=== PATIENT | male | born 1975 | race Hispanic/Latino ===

== ENCOUNTER 2023-02-08 15:42 | Emergency (ER) | payer OTHER, SELFPAY ==
[2023-02-08 15:45] VITALS: BP 139/96; PULSE 77; RESP 18; TEMP 35.8; O2SAT 99; BMI 31.7
[2023-02-08 16:17] VITALS: BMI 31.7
--- NOTE | 2023-02-08 16:37 | EX.ED.DYSGE1 ---
HPI History of Present Illness Chief Complaint: Neuro S/Sx Detail of Chief Complaint: Multiple symptoms over the past several days to week Onset/Context/Timing Onset: Weeks Context: Sudden Onset Timing: Intermittent Quality: Detailed in the HPI narrative Location: Detailed in the HPI narrative Current Severity: Mild Maximum Severity: Moderate Worsened by: Nothing specific Relieved by: Nothing Associated Symptoms Associated Symptoms: 5 pound weight gain over the past month Narrative Narrative: Patient is a 47-year-old male with history of anxiety and depression who is on spironolactone and estrogen therapy who presents because he had 3 episodes of total body movement that lasted seconds last evening. There was no incontinence of urine or stool. There was no loss of consciousness. This occurred when he was lying in bed to go to sleep. He also reports 3 episodes of his knee buckling when he was using the restroom several days ago. He denies buckling of his knees going up or down steps. He denies symptoms of claudication. He denies fever, chills night sweats. He denies headache. He denies visual, ocular auditory symptoms. He denies trouble with balance or coordination. He states last evening he was coughing but he was exposed to chemical/fumes while at work. 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 His medications have not changed. One of his medicines dose was increased 2 to 3 weeks ago. There is no family history of seizures and he has no history of febrile seizures. Prior similar symptoms: No Recent Illness/Hospitalization: No PFSH PFSH Allergy/AdvReac Type Severity Reaction Status Date / Time latex Allergy Rash Verified 02/08/23 15:44 levofloxacin [From Levaquin] Allergy Shortness Verified 02/08/23 15:44 of breath Social History (Updated 02/08/23 @ 16:[address] Nash Geller MD) household members: none Smoking Status: Never smoker alcohol intake: never substance use type: does not use ROS ROS ED Constitutional Constitutional ED: Denies chills, fever(s), subjective, sweats or weight loss Eyes Eyes: Denies blurry vision, change in vision or diplopia ENT ENT ED: Denies ear pain, rhinorrhea or sore throat Cardiovascular Cardiovascular: Denies chest pain, orthopnea, palpitations, paroxysmal nocturnal dyspnea or racing heartbeat Respiratory/Chest Respiratory/Chest: Denies cough, dyspnea, dyspnea on exertion, orthopnea or paroxysmal nocturnal dyspnea Gastrointestinal Gastrointestinal: Denies abdominal pain, nausea or vomiting Genitourinary Genitourinary ED: Denies dysuria, hematuria or urinary frequency Musculoskeletal Musculoskeletal: Denies arthralgias, back pain, myalgias or neck pain Integumentary Denies rash Neurologic Neurologic: Denies headache(s) or paresthesias Psychiatric Psychiatric: Reports anxiety and depression Endocrine Endocrinology: Denies cold intolerance or heat intolerance Hematologic/Lymphatic Hematologic/Lymphatic: Reports systems reviewed and no addt'l complaints, except as documented EXAM Physical Exam Const Vital Signs: 02/08/23 15:45 Temperature 96.5 F L Temperature Source Temporal Pulse Rate 77 Respiratory Rate 18 Blood Pressure 139/96 H Blood Pressure Mean 110 Pulse Ox 99 Oxygen Delivery Method Room Air Positive well nourished, well developed and obese Constitutional Narrative: Patient appears pale. He has been told by others that he appears pale. General Appearance ED: well developed, NAD and pallor; Negative for cyanotic or diaphoretic Nutritional Appearance: obese HEENT Reports moist mucous membranes HEENT Narrative: Head is normocephalic and atraumatic. Ears are normal. TMs are normal. Nares patent with no discharge. Uvula is midline. There is no deviation tongue with protrusion. Posterior pharynx is normal. Eyes PERRL and EOMs intact bilaterally Eyes Narrative: There is no nystagmus. Conjunctive is. General Eye ED: Negative for pale conjunctiva or scleral icterus Chest Wall inspection of chest normal and palpation of chest normal Resp normal respiratory effort and clear to auscultation bilaterally Cardio regular rate, regular rhythm, S1 normal heart sound and S2 normal heart sound GI normal to inspection, nondistended, normoactive bowel sounds, non-tender, non-distended and no masses; Negative for hepatosplenomegaly Back/Spine no CVA tenderness Extremity normal to inspection General Extremety ED: Negative for edema or tenderness General Extremity: Negative for edema Neuro oriented x3, CN's II-XII intact bilaterally and no sensory deficits noted Neuro Narrative: There is no dysmetria. DTRs are 2+ at the bicep, brachialis, triceps, patella and ankle. There is no clear or Babinski sign noted. Sensorium / Orientation: alert Motor Exam: strength 5/5 throughout Psych Psych Narrative: Mood is flat. Mood & Affect: depressed Skin no rashes or lesions noted, no wounds and skin turgor normal General Skin Exam: pallor; Negative for jaundice MDM MDM MDM Narrative Medical decision making narrative: His movement may be myoclonic jerks motion due to near sleep. This also could represent a atypical neurologic event. This could represent adverse reaction to his medication. Patient's physician affiliated with [facility]. There are no records at [facility] or laboratory results performed prior to this visit at [facility]. Lab Data Attestation: I reviewed the patient's lab results. Lab results narrative: Laboratory work-up is unremarkable. Patient was informed that his blood tests are unremarkable. He was discharged home with appropriate home-going instructions Labs: Laboratory Results - last 24 hr 02/08/23 02/08/23 16:20 17:18 WBC 8.0 RBC 4.55 L Hgb 14.0 Hct 41.9 MCV 92.1 MCH 30.8 MCHC 33.4 RDW Std Deviation 46.0 H RDW Coeff of Alcides 13.4 Plt Count 311 MPV 9.0 Immature Gran % (Auto) 0.500 Neut % (Auto) 55.7 Lymph % (Auto) 29.1 [place] % (Auto) 9.2 Eos % (Auto) 4.0 Baso % (Auto) 1.5 H Absolute Neuts (auto) 4.5 Absolute Lymphs (auto) 2.33 Nucleated RBC % 0 Sodium 135 L Potassium 3.7 Chloride 107 Carbon Dioxide 23.0 Anion Gap 5 BUN 18 Creatinine 1.06 Estim Creat Clear Calc 78.81 Est GFR (MDRD) Af Amer 95 Est GFR (MDRD) Non-Af 79 BUN/Creatinine Ratio 17.0 Glucose 105 Calcium 8.9 Total Bilirubin 0.20 AST 14 L ALT 34 Alkaline Phosphatase 97 Total Protein 7.2 Albumin 3.7 Globulin 3.5 Albumin/Globulin Ratio 1.1 POC Glucose 118 H Discharge Plan Triage Chief Complaint: Neuro S/Sx ED Provider: Nash Geller Dx/Rx/DC Orders Clinical Impression: Abnormal involuntary movements Primary Care Provider: CLEOPATRA CROCKER Referrals: CLEOPATRA CROCKER [Other] - As Needed Disposition Disposition: Home, Self Care
[2023-02-08 16:38] LABS: Bedside Glucose 118 mg/dL (74-106)
[2023-02-08 17:26] LABS: Absolute Lymphocyte Count 2.33 X10^3/uL (0.83-4.51); Absolute Neutrophil Count 4.5 X10^3/uL (2.0-7.7); Basophil# 0.12 X10^3/uL; Basophil% 1.5 % (0-1); Eosinophil# 0.32 X10^3/uL; Hematocrit 41.9 % (40-54); Lymphocyte # 2.33 X10^3/ul (0.83-4.51); Lymphocyte % 29.1 % (19-41); Mean Corp Hgb Conc 33.4 g/dL (32-36); Mean Corpuscular Hgb 30.8 pg (27.0-32.0); Mean Corpuscular Volume 92.1 fL (80-94); Monocyte# 0.74 X10^3/uL; Monocyte% 9.2 % (0-10); NRBC Flagged by Analyzer 0 % (0-5); Neutrophil # 4.47 X10^3/uL (2.7-7.7); Neutrophil % 55.7 % (47-70); Platelet Count 311 K/mm3 (150-450); RBC Distribution Width CV 13.4 % (11.6-14.6); Red Blood Count 4.55 M/mm3 (4.6-6.2)
[2023-02-08 17:45] LABS: ALB/GLOB Ratio 1.1 RATIO (0.9-2.4); AST(SGOT) 14 U/L (15-37); Alanine Aminotransfer ALT/SGPT 34 U/L (16-61); Albumin, Serum 3.7 g/dL (3.2-5.0); Alkaline Phosphatase 97 U/L (45-117); Anion Gap 5 (5-15); BUN 18 mg/dL (7-18); Calcium,Total 8.9 mg/dL (8.5-10.1); Chloride 107 mmol/L (98-107); Creatinine, Serum 1.06 mg/dL (0.70-1.30); EST Glomerular Filtration Rate 79 mL/min (>60); Est Glom Filt Rate - Afr Amer 95 mL/min (>60); Estimated Creatinine Clearance 78.81 ml/min; Globulin 3.5 g/dL (2.2-4.2); Glucose 105 mg/dL (74-106); Potassium 3.7 mmol/L (3.5-5.1); Protein, Total 7.2 g/dL (6.4-8.2); Sodium Level 135 mmol/L (136-145)
== END 2023-02-08 18:15 | disposition home or self-care (01) ==
PROVIDERS: Emergency Provider Emergency Medicine; Visit Provider Emergency Medicine
DX: R25.9 Unspecified abnormal involuntary movements (principal); E66.9 Obesity, unspecified
CPT/HCPCS: 80053; 82962; 85025; 99282

== ENCOUNTER 2024-07-05 10:19 | Emergency (ER) | payer OTHER, SELFPAY ==
[2024-07-05 10:21] VITALS: BP 135/82; PULSE 87; RESP 18; TEMP 37.2; O2SAT 99; BMI 34.2
[2024-07-05 10:23] VITALS: BP 135/82; PULSE 87; RESP 18; TEMP 37.2; O2SAT 99
--- NOTE | 2024-07-05 11:42 | EX.ED.DYSGE1 ---
HPI History of Present Illness Chief Complaint: Syncope Detail of Chief Complaint: Patient presents with syncope after coughing episode. Informant: patient Onset/Context/Timing Onset: Today and Hours Context: Sudden Onset Timing: Intermittent Quality: Patient had a hard coughing spell resulting in syncope and collapse Location: Patient states he was sitting and stood up Current Severity: Gone Maximum Severity: Moderate Worsened by: Coughing Relieved by: Not applicable Associated Symptoms Associated Symptoms: Patient has no recall Narrative Narrative: Patient is a 49-year-old male. He is transition from male to female. He had a single episode in the past. He denies headache, visual, ocular auditory symptoms. No trouble speech or swallowing. Denies paresthesia, anesthesia Medicus. He denies hematuria. He denies black or maroon-colored stool. He has been ill. He has viral-like symptoms that started several days ago. He did have diarrhea a couple of days ago. He did not notice any blood or mucus in the diarrhea. He has had no documented fever. He denies myalgias arthralgias. He does endorse mild headache. [place] photophobia, neck pain or neck stiffness. He does have a nonproductive cough. Prior similar symptoms: Yes Recent Illness/Hospitalization: No PFSH PFSH Allergy/AdvReac Type Severity Reaction Status Date / Time levofloxacin (From Levaquin) Allergy NEEDS Verified 07/05/24 10:20 FOLLOW-UP Social History (Updated 07/05/24 @ 12:[address] Nash Geller MD) Smoking Status: Never smoker substance use type: does not use ROS ROS ED Constitutional Constitutional ED: Denies chills, fever(s) or subjective Eyes Eyes: Denies blurry vision, change in vision or diplopia ENT ENT ED: Reports rhinorrhea and sore throat; Denies ear pain Cardiovascular Cardiovascular: Denies chest pain, orthopnea, palpitations or paroxysmal nocturnal dyspnea Respiratory/Chest Respiratory/Chest: Reports cough; Denies dyspnea, dyspnea on exertion, orthopnea, paroxysmal nocturnal dyspnea or sputum Gastrointestinal Gastrointestinal: Reports diarrhea; Denies abdominal pain or vomiting Genitourinary Genitourinary ED: Denies dysuria, hematuria or urinary frequency Musculoskeletal Musculoskeletal: Denies arthralgias or myalgias Integumentary Denies rash Neurologic Neurologic: Denies headache(s) Hematologic/Lymphatic Hematologic/Lymphatic: Reports systems reviewed and no addt'l complaints, except as documented EXAM Physical Exam Const Vital Signs: 07/05/24 10:21 07/05/24 10:23 07/05/24 11:58 Temperature 98.9 F 98.9 F Temperature Source Oral Oral Pulse Rate 87 87 Pulse Rate [Lying] 69 Pulse Rate [Sitting (for 1 minute prior to obtaining)] 65 Pulse Rate [Standing (for 1 minute prior to obtaining)] 75 Respiratory Rate 18 18 Blood Pressure 135/82 H 135/82 H Blood Pressure [Lying] 138/86 H Blood Pressure [Sitting (for 1 minute prior to obtaining)] 137/90 H Blood Pressure [Standing (for 1 minute prior to obtaining)] 122/92 H Blood Pressure Mean 99 99 Blood Pressure Mean [Lying] 103 Blood Pressure Mean [Sitting (for 1 minute prior to obtaining)] 105 Blood Pressure Mean [Standing (for 1 minute prior to obtaining)] 102 Pulse Ox 99 99 Oxygen Delivery Method Room Air Room Air Positive well nourished and well developed Constitutional Narrative: BMI is 34.3. General Appearance ED: well developed and NAD; Negative for pallor HEENT Reports moist mucous membranes HEENT Narrative: Head is atraumatic normocephalic. Ears normal. Nares patent. Eyes PERRL and EOMs intact bilaterally General Eye ED: Negative for pale conjunctiva or scleral icterus Neck no lymphadenopathy, supple and no JVD Neck Narrative: Trachea is midline. Resp normal respiratory effort and clear to auscultation bilaterally Cardio regular rate, regular rhythm, S1 normal heart sound, S2 normal heart sound and no murmurs GI normal to inspection, nondistended, normoactive bowel sounds, non-tender, non-distended and no masses; Negative for hepatosplenomegaly Extremity normal to inspection Neuro oriented x3 and CN's II-XII intact bilaterally Sensorium / Orientation: alert Psych mental status grossly normal Skin no rashes or lesions noted, No no wounds and skin turgor normal Skin Narrative: Abrasion right side of the forehead from rubbing his head on the floor. General Skin Exam: Negative for jaundice or pallor MDM MDM MDM Narrative Medical decision making narrative: EKG was obtained per nurse protocol. Patient's history is consistent with vasovagal syncopal sewed/posttussive syncope. If orthostatics are positive with his recent viral infection will order 1 L of normal saline. If there is any ischemic changes on EKG will obtain blood work to evaluate for cardiac event. Orthostatic vital signs are negative. EKG Initial EKG: Attestation: I personally reviewed and interpreted this EKG as follows: Interpretation: Sinus Rhythm (Rate is 92. Patient has incomplete right bundle branch block with an RR prime in V1 and V2. HI interval is under 58 ms. QS duration 96 ms. QT duration 284 ms. [place] is normal.) Treatment and Re-Evaluation :: Patient was informed he has a vasovagal episode due to coughing. Discharge Plan Triage Chief Complaint: Syncope ED Provider: Nash Geller Dx/Rx/DC Orders Clinical Impression: Post-tussive syncope, Viral illness Instructions: ED Fainting, Vagal Reaction Primary Care Provider: CLEOPATRA CROCKER Referrals: CLEOPATRA CROCKER [Other] - As Needed Print Language: Sami Disposition Disposition: Home, Self Care
[2024-07-05 11:58] VITALS: BP 122/92; BP 137/90; BP 138/86; PULSE 65; PULSE 69; PULSE 75
[2024-07-05 12:48] VITALS: BP 127/64; PULSE 73; RESP 15; TEMP 36.7; O2SAT 97
== END 2024-07-05 12:49 | disposition home or self-care (01) ==
PROVIDERS: Emergency Provider Emergency Medicine; Visit Provider Emergency Medicine
DX: R55 Syncope and collapse (principal); R05.4 Cough syncope; B34.9 Viral infection, unspecified
CPT/HCPCS: 93005; 99283; A4216

== ENCOUNTER → 2024-10-30 | Outpatient (CLI) | payer OTHER, SELFPAY ==
[2024-10-30 12:42] LABS: Absolute Lymphocyte Count 2.01 X10^3/uL (0.83-4.51); Basophil# 0.08 X10^3/uL; Basophil% 1.6 % (0-1); Eosinophil# 0.29 X10^3/uL; Hematocrit 41.6 % (40-54); Hemoglobin 14.1 g/dL (13.0-16.5); Lymphocyte # 2.01 X10^3/ul (0.83-4.51); Lymphocyte % 41.4 % (19-41); Mean Corp Hgb Conc 33.9 g/dL (32-36); Mean Corpuscular Hgb 30.1 pg (27.0-32.0); Mean Corpuscular Volume 88.7 fL (80-94); Mean Platelet Vol. 9.5 fl (6.2-12.0); Monocyte# 0.47 X10^3/uL; Monocyte% 9.7 % (0-10); NRBC Flagged by Analyzer 0 % (0-5); Neutrophil # 1.99 X10^3/uL (2.7-7.7); Neutrophil % 41.1 % (47-70); Platelet Count 282 K/mm3 (150-450); RBC Distribution Width CV 13.6 % (11.6-14.6); RBC Distribution Width SD 44.3 fl (35.1-43.9); Red Blood Count 4.69 M/mm3 (4.6-6.2); White Blood Count 4.9 K/mm3 (4.4-11.0)
[2024-10-30 14:12] LABS: Cholesterol 165 mg/dL (<=200); High Density Lipoprotein 49 mg/dL; Low Density Lipoprotein Calc. 82 mg/dL; PSA,Total - Annual Screen 0.12 ng/mL (0.02-4.00); Triglycerides 168 mg/dL; Very Low Density Lipoprotein 34 mg/dL (5-40); cholesterol:hdl ratio screen 3.35
[2024-10-30 14:32] LABS: ALB/GLOB Ratio 1.5 RATIO (0.9-2.4); AST(SGOT) 25 U/L (<=37); Alanine Aminotransfer ALT/SGPT 32 U/L (<=46); Albumin, Serum 4.2 g/dL (3.5-5.0); Alkaline Phosphatase 85 U/L (40-129); Anion Gap 11 (5-15); BUN 14 mg/dL (4-19); BUN/Creat Ratio 12.4 RATIO (10-20); Calcium,Total 9.1 mg/dL (7.6-11.0); Carbon Dioxide 20.8 mmol/L (21.0-32.0); Chloride 103 mmol/L (98-108); Creatinine, Serum 1.13 mg/dL (0.70-1.20); EST Glomerular Filtration Rate 79 (>60); Globulin 2.7 g/dL (2.2-4.2); Glucose 132 mg/dL (70-99); Potassium 3.9 mmol/L (3.3-5.1); Protein, Total 6.9 g/dL (5.9-8.4); Sodium Level 135 mmol/L (133-145); Total Bilirubin 0.43 mg/dL (0.00-1.30)
[2024-10-30 16:45] LABS: Hemoglobin A1c 6.1 % (<=5.6)
== END | disposition home or self-care (01) ==
LOC: BIMLAB 09:52
PROVIDERS: PCP Internal Medicine; Referring Provider Internal Medicine; Visit Provider Internal Medicine
DX: Z00.00 Encounter for general adult medical examination without abnormal findings (principal); R73.9 Hyperglycemia, unspecified
CPT/HCPCS: 36415; 80053; 80061; 83036; 84153; 85025; G0103

== ENCOUNTER 2024-11-06 17:31 | Emergency (ER) | payer OTHER, SELFPAY ==
[2024-11-06 17:31] VITALS: BP 162/103; PULSE 86; RESP 14; TEMP 35.6; O2SAT 99; BMI 34.5
--- NOTE | 2024-11-06 18:17 | EKG12_ITS ---
Test Reason : cp Blood Pressure : */* mmHG Vent. Rate : 86 BPM Atrial Rate : 86 BPM P-R Int : 168 ms QRS Dur : 104 ms QT Int : 412 ms P-R-T Axes : 49 -4 33 degrees QTcB Int : 493 ms Normal sinus rhythm Incomplete right bundle branch block Nonspecific T wave abnormality QTcB >= 480 msec Abnormal ECG Confirmed by Vahid Keller ([id number]), associate editor ERIS STARKEY ([id number]) on 11/10/2024 11:43:28 AM Referred By: Confirmed By: Vahid Keller
--- NOTE | 2024-11-06 18:27 | ED.VIS.CHEST ---
HPI <CARMENZA Harman - Last Filed: 11/06/24 21:11> History of Present Illness Chief Complaint: Chest Pain Narrative Narrative: 49-year-old male with PMH of GERD, anxiety and depression presents with 3 days of chest pain. He gets episodes of midsternal pain described as stinging or muscle soreness. It usually last a few seconds to 40 minutes. It occurred at rest and when he was walking around. It's occurred more frequently about 4 times today. He states he ate a chicken sandwich at [employer] and had a few seconds of the pain afterward. He has no shortness of breath, nausea or vomiting, or abdominal or back pain. He has normal bladder and bowel movements. He denies fever chills or upper respiratory symptoms. He is on esomeprazole and famotidine for GERD. PFSH <CARMENZA Harman - Last Filed: 11/06/24 21:11> PENDING SALE TO [facility] Medical History (Updated 11/06/24 @ 21:05 by CARMENZA Harman) Blood glucose elevated Encounter to establish care Preventative health care Fibromyalgia Gender dysphoria Vision problems GERD (gastroesophageal reflux disease) High cholesterol Hypertension Generalized headaches Emotional problems Asthma Home Medications ?Medication ?Instructions ?Recorded ?Last Taken ?Type esomeprazole magnesium 40 mg 40 mg PO QAM 11/19/23 Unknown History capsule,delayed release famotidine 20 mg tablet 20 mg PO DAILY 11/19/23 Unknown History spironolactone 50 mg tablet 50 mg PO QDAY 11/19/23 Unknown History finasteride 5 mg tablet 5 mg PO QDAY 06/04/24 Unknown History estradiol 2 mg tablet 6 mg PO QDAY 10/30/24 Unknown History buspirone 15 mg tablet 15 mg PO BID #180 tabs 11/04/24 Unknown Rx clonazepam 0.5 mg tablet 0.5 mg PO QHS PRN anxiety #30 tabs 11/04/24 Unknown Rx fluoxetine 40 mg capsule 80 mg (2 x 40 mg) PO QDAY #180 caps 11/04/24 Unknown Rx hydroxyzine HCl 25 mg tablet 25 mg PO QDAY #90 tabs 11/04/24 Unknown Rx mirabegron 25 mg tablet,extended 50 mg PO QDAY 11/04/24 Unknown History release 24 hr (Myrbetriq) prazosin 2 mg capsule 2 mg PO QHS #90 caps 11/04/24 Unknown Rx Allergy/AdvReac Type Severity Reaction Status Date / Time latex Allergy Rash Verified 11/06/24 17:32 levofloxacin (From Levaquin) Allergy Shortness Verified 11/06/24 17:32 of breath Family History Other Alcoholism Anxiety Arthritis Breast cancer Colon cancer Depression Diabetes Hypertension Mental disorder Psychiatric care Suicide attempt Surgical History H/O endoscopy History of liver biopsy History of cystoscopy History of colonoscopy Social History household members: none Smoking Status: Never smoker alcohol intake: never substance use type: does not use ROS <CARMENZA Harman - Last Filed: 11/06/24 21:11> ROS ED ROS Narrative Constitutional: Negative for fever, chills, malaise. CVS: Positive for chest pain. No palpitations or syncope. Respiratory: Negative for shortness of breath, cough. GI: Negative for abdominal pain, nausea, vomiting, diarrhea. EXAM <CARMENZA Harman - Last Filed: 11/06/24 21:11> Physical Exam Narrative Exam Narrative: CONST: Patient sitting in no acute distress. EYES: Normal inspection. NECK: Normal inspection. RESP: No respiratory distress, CTAB. CVS: Regular rate and rhythm, no murmur, no gallop. ABD: Soft and nontender, no guarding or rebound, nondistended. SKIN: Color normal, no rash, warm, dry, intact. EXTREMITIES: Normal appearance, no pedal edema. NEURO: Alert and answering questions appropriately. PSYCH: Normal affect. Const Vital Signs: 11/06/24 17:31 11/06/24 18:33 11/06/24 19:31 Temperature 96.1 F L Temperature Source Temporal Pulse Rate 86 74 Respiratory Rate 14 16 Blood Pressure 162/103 H 150/96 H Blood Pressure Mean 122 114 Pulse Ox 99 98 Oxygen Delivery Method Room Air Room Air Room Air 11/06/24 21:00 11/06/24 21:07 Temperature 98.1 F Temperature Source Pulse Rate 68 72 Respiratory Rate 20 H 20 H Blood Pressure 132/93 H 132/93 H Blood Pressure Mean 106 106 Pulse Ox 100 100 Oxygen Delivery Method Room Air <Dr. Rakesh Broderick DO - Last Filed: 11/06/24 21:26> Physical Exam Const Vital Signs: 11/06/24 17:31 11/06/24 18:33 11/06/24 19:31 Temperature 96.1 F L Temperature Source Temporal Pulse Rate 86 74 Respiratory Rate 14 16 Blood Pressure 162/103 H 150/96 H Blood Pressure Mean 122 114 Pulse Ox 99 98 Oxygen Delivery Method Room Air Room Air Room Air 11/06/24 21:00 11/06/24 21:07 Temperature 98.1 F Temperature Source Pulse Rate 68 72 Respiratory Rate 20 H 20 H Blood Pressure 132/93 H 132/93 H Blood Pressure Mean 106 106 Pulse Ox 100 100 Oxygen Delivery Method Room Air <CARMENZA Harman - Last Filed: 11/06/24 21:11> Heart Score History: Slightly/Non-Suspicious ECG: Normal Age: >45 - <65 years Risk Factors: No Risk Factors Troponin: </= Normal Limit Score: 1 <Dr. Rakesh Broderick DO - Last Filed: 11/06/24 21:26> Heart Score Score: 1 MDM <CARMENZA Harman - Last Filed: 11/06/24 21:11> MDM MDM Narrative Medical decision making narrative: 49-year-old male has had 3 days of intermittent chest pain lasting seconds to minutes. It is not exertional or pleuritic. It has occurred after eating food at times. He appears slightly anxious but nontoxic. Vital signs notable for hypertension otherwise normal. His exam is benign. EKG is nonischemic and troponin x 2 is normal. CXR shows no acute process. I do not suspect a PE as he has atypical pain that last seconds to minutes and he has no shortness of breath. He states he has significant GERD and an abnormality seen on EGD but does not know the details. He is on a PPI and famotidine. I recommended he continue these and continue a good diet. He was instructed to follow-up with his primary care doctor return if symptoms worsen. He was discharged in stable condition. Lab Data Attestation: I reviewed the patient's lab results. Labs: Laboratory Results - last 24 hr 11/06/24 11/06/24 18:28 20:32 WBC 7.4 RBC 4.83 Hgb 14.5 Hct 41.3 MCV 85.5 MCH 30.0 MCHC 35.1 RDW Std Deviation 41.0 RDW Coeff of Alcides 13.2 Plt Count 295 MPV 9.1 Immature Gran % (Auto) 0.300 Neut % (Auto) 54.7 Lymph % (Auto) 32.0 [place] % (Auto) 8.3 Eos % (Auto) 3.5 Baso % (Auto) 1.2 H Absolute Neuts (auto) 4.1 Absolute Lymphs (auto) 2.38 Nucleated RBC % 0 Sodium 136 Potassium 3.6 Chloride 103 Carbon Dioxide 16.3 L Anion Gap 17 H BUN 16 Creatinine 1.20 Estim Creat Clear Calc 79.44 Est GFR (MDRD) Non-Af 73 BUN/Creatinine Ratio 13.3 Glucose 128 H Calcium 9.0 Troponin T High Sens 9 Troponin T Hi Sens 2 Hr 9 Radiography Diagnostic Testing: Clinical Impression(s) from Imaging Studies Chest X-Ray 11/06/24 18:35 IMPRESSION: No acute cardiopulmonary process. Reading Location: [facility] ED attending interpretation of 2 view chest x-ray shows normal heart size, no acute infiltrate. EKG Initial EKG: Attestation: I personally reviewed and interpreted this EKG as follows: Interpretation: Sinus Rhythm and No Acute Injury Pattern Comments: Normal sinus rhythm 86 bpm Incomplete RBBB Nonspecific T wave changes <Dr. Rakesh Broderick, DO - Last Filed: 11/06/24 21:26> [facility] MDM Narrative Medical decision making narrative: 49-year-old male has had 3 days of intermittent chest pain lasting seconds to minutes. It is not exertional or pleuritic. It has occurred after eating food at times. He appears slightly anxious but nontoxic. Vital signs notable for hypertension otherwise normal. His exam is benign. EKG is nonischemic and troponin x 2 is normal. CXR shows no acute process. I do not suspect a PE as he has atypical pain that last seconds to minutes and he has no shortness of breath. He states he has significant GERD and an abnormality seen on EGD but does not know the details. He is on a PPI and famotidine. I recommended he continue these and continue a good diet. He was instructed to follow-up with his primary care doctor return if symptoms worsen. He was discharged in stable condition. I have personally performed a face to face assessment of the patient and have reviewed the FELIZ Note. I performed a substantive portion of the visit including all aspects of the following. My infante findings include: History is 49-year-old patient presenting for the evaluation of a midsternal intermittent pain in their chest. Sometimes lasting minutes sometimes seconds. More of an achy sensation. States that they had an EGD in the past and is on both Nexium and Pepcid. Patient concerned so came to emergency. Exam is afebrile pulse is stable upper abdomen is nontender heart regular without murmur lung sounds clear and equal chest nontender no leg swelling no rashes/petechiae Medical Decison Making EKG is nonischemic and sinus. 2 sets of cardiac enzymes are normal. The abdomen is benign. My independent interpretation of the chest x-ray is no acute process. I believe the patient can be discharged home following up with primary care return if worsening symptomology or concerns History & Record Review Discussion w/independent historian: Patient Lab Data Labs: Laboratory Results - last 24 hr 11/06/24 11/06/24 18:28 20:32 WBC 7.4 RBC 4.83 Hgb 14.5 Hct 41.3 MCV 85.5 MCH 30.0 MCHC 35.1 RDW Std Deviation 41.0 RDW Coeff of Alcides 13.2 Plt Count 295 MPV 9.1 Immature Gran % (Auto) 0.300 Neut % (Auto) 54.7 Lymph % (Auto) 32.0 [place] % (Auto) 8.3 Eos % (Auto) 3.5 Baso % (Auto) 1.2 H Absolute Neuts (auto) 4.1 Absolute Lymphs (auto) 2.38 Nucleated RBC % 0 Sodium 136 Potassium 3.6 Chloride 103 Carbon Dioxide 16.3 L Anion Gap 17 H BUN 16 Creatinine 1.20 Estim Creat Clear Calc 79.44 Est GFR (MDRD) Non-Af 73 BUN/Creatinine Ratio 13.3 Glucose 128 H Calcium 9.0 Troponin T High Sens 9 Troponin T Hi Sens 2 Hr 9 Radiography Diagnostic Testing: Clinical Impression(s) from Imaging Studies Chest X-Ray 11/06/24 18:35 IMPRESSION: No acute cardiopulmonary process. [facility] T[facility] Chief Complaint: Chest Pain ED Midlevel Provider: Taylor Munoz ED Provider: Rakesh Broderick Dx/Rx/DC Orders Clinical Impression: Atypical chest pain Instructions: ED Chest Pain, Noncardiac Prescriptions: No Action spironolactone 50 mg tablet 50 mg PO QDAY esomeprazole magnesium 40 mg capsule,delayed release(DR/EC) 40 mg PO QAM famotidine 20 mg tablet 20 mg PO DAILY estradiol 2 mg tablet 6 mg PO QDAY Rx Instructions: 4 mg in am and 2mg at night finasteride 5 mg tablet 5 mg PO QDAY mirabegron [Myrbetriq] 25 mg tablet extended release 24 hr 50 mg PO QDAY buspirone 15 mg tablet 15 mg PO BID Qty: 180 1RF fluoxetine 40 mg capsule 80 mg PO QDAY Qty: 180 1RF hydroxyzine HCl 25 mg tablet 25 mg PO QDAY Qty: 90 3RF prazosin 2 mg capsule 2 mg PO QHS Qty: 90 1RF clonazepam 0.5 mg tablet 0.5 mg PO QHS PRN (Reason: anxiety) Qty: 30 2RF Primary Care Provider: Arleth Jackson Referrals: Arleth Jackson MD [Primary Care Provider] - Activity Restrictions/Additional Instructions: Your blood work here is normal. No signs of heart attack. The chest pain could be related to gastroesophageal reflux. Continue her esomeprazole and famotidine. Avoid spicy or citrus foods and follow-up with your primary care doctor. If your chest pain worsens please be reevaluated. Print Language: Gabonese Disposition Disposition: Home, Self Care Discharge Date/Time: 11/06/24 21:13
--- NOTE | 2024-11-06 18:35 | RAD_ITS ---
EXAM: XR Chest, 2 Views CLINICAL INDICATION: CHEST PAIN TECHNIQUE: Frontal and lateral views of the chest. COMPARISON: No relevant prior studies available. FINDINGS: LUNGS AND PLEURAL SPACES: Unremarkable. No consolidation. No pneumothorax. HEART: Unremarkable. No cardiomegaly. MEDIASTINUM: Unremarkable. Normal mediastinal contour. BONES/JOINTS: Unremarkable. No acute fracture. RAD/Chest PA and Lateral IMPRESSION: No acute cardiopulmonary process. Reading Location: [id number]
[2024-11-06] MEDS: Aspirin 81 MG TAB.CHEW 324 MG PO (18:44)
[2024-11-06 18:52] LABS: Absolute Lymphocyte Count 2.38 X10^3/uL (0.83-4.51); Absolute Neutrophil Count 4.1 X10^3/uL (2.0-7.7); Basophil# 0.09 X10^3/uL; Basophil% 1.2 % (0-1); Eosinophil# 0.26 X10^3/uL; Eosinophils% 3.5 % (0-5); Hematocrit 41.3 % (40-54); Hemoglobin 14.5 g/dL (13.0-16.5); Lymphocyte # 2.38 X10^3/ul (0.83-4.51); Mean Corp Hgb Conc 35.1 g/dL (32-36); Mean Corpuscular Volume 85.5 fL (80-94); Mean Platelet Vol. 9.1 fl (6.2-12.0); Monocyte# 0.62 X10^3/uL; Monocyte% 8.3 % (0-10); NRBC Flagged by Analyzer 0 % (0-5); Neutrophil # 4.06 X10^3/uL (2.7-7.7); Neutrophil % 54.7 % (47-70); Platelet Count 295 K/mm3 (150-450); RBC Distribution Width CV 13.2 % (11.6-14.6); Red Blood Count 4.83 M/mm3 (4.6-6.2); White Blood Count 7.4 K/mm3 (4.4-11.0)
[2024-11-06 18:57] LABS: Troponin T High Sensitivity 9 ng/L (<=22)
[2024-11-06 18:58] LABS: Anion Gap 17 (5-15); BUN 16 mg/dL (4-19); BUN/Creat Ratio 13.3 RATIO (10-20); Carbon Dioxide 16.3 mmol/L (21.0-32.0); Chloride 103 mmol/L (98-108); EST Glomerular Filtration Rate 73 (>60); Estimated Creatinine Clearance 79.44 ml/min (50-250); Glucose 128 mg/dL (70-99); Potassium 3.6 mmol/L (3.3-5.1); Sodium Level 136 mmol/L (133-145)
[2024-11-06] MEDS: Lidocaine 2% Viscous15 ML UDC 15 ML PO (19:16)
[2024-11-06] MEDS: Mag Hydrox/Al Hydrox/Simeth 30 ML UDC PO (19:16)
[2024-11-06 19:31] VITALS: BP 150/96; PULSE 74; RESP 16; O2SAT 98
--- OUTSIDE RECORDS SUMMARY | 2024-11-06 19:43 | XMS RPT_ITS | CCD ---
Author Organization [facility] Care Team Providers Care Syrup Blender Name Role Phone PCP, No Primary Care Provider UnavailLULU Mercado Attending Provider [phone] PCP, No Primary Care Unavailable Susie Rinaldi Attending Unavailable Non-[facility], Provider Primary Care Provider Unav ailable Non-[facility], Provider Primary Care Provider Unav ailable Brent Crocker Primary Care Provider [phone] Unavailable Primary Care Provider UnavailOPAL Layton Referring Unavailab Brent Lepe MD Primary Care Provider [phone] BRENT CROCKER Primary Care Unavailable MYESHA ORTIZ Referring Unavailable BRENT CROCKER Primary Care Unavailable BRENT CROCKER Primary Care Unavailable HOLDEN ROGERS Referring Unavailable BRENT CROCKER Primary Care Unavailable PANKAJ CALDERON Referring Unavailable PANKAJ CALDERON Attending Unavailable BRENT CROCKER Primary Care Unavailable TIANNA SALCIDO Attending Unavailable BRENT CROCKER Primary Care Unavailable BRENT CROCKER Attending Unavailable BRENT CROCKER Primary Care Unavailable BRENT CROCKER Primary Care Unavailable TIANNA SALCIDO Attending Unavailable BRENT CROCKER Primary Care Unavailable BRENT CROCKER Attending Unavailable BRENT CROCKER Primary Care Unavailable PAULA SMITH Attending Unavail able BRENT CROCKER Primary Care Unavailable BRENT CROCKER Attending Unavailable BRENT CROCKER Primary Care Unavailable BRENT CROCKER Attending Unavailable OPAL KENNY Admitting Unavailable OPAL KENNY Attending Unavailable OPAL KENNY Consulting Unavailable BRENT CROCKER Primary Care Unavailable MontgomeryAspen Attending Unavailable Olehermane Efewongbe Primary Care Unavailable MontgomeryKobeon Attending Unavailable Care Physician, No Primary Primary Care Unava ilable Care Physician, No Primary Primary Care Unava ilable Montgomery, Aspen Attending Unavailable Care Physician, No Primary Primary Care Unava ilable Montgomery, Aspen Attending Unavailable Care Physician, No Primary Primary Care Unava ilable Montgomery, Aspen Attending Unavailable Care Physician, No Primary Primary Care Unava ilable Montgomery, Aspen Attending Unavailable Montgomery, Aspen Attending Unavailable Care Physician, No Primary Primary Care Unava ilable Geller, Nash Attending Unavailable SUZY BLUNT Primary Care Unavailabl e Oleghe, Efewongbe Primary Care Unavailable Oleghe, Efewongbe Attending Unavailable Oleghe, Efewongbe Referring Unavailable SUZY BLUNT Primary Care Unavailabl e Valentina Aspen Attending Unavailable Montgomery, Aspen Attending Unavailable Olehermane Efewongbe Attending Unavailable Allergies Allergy Classification Reported Allergen(s) Allergy Type Date of Onset Reaction(s) Facility (1 source) LEVOQUIN; Translations: [LEVOQUIN] Propensity to adverse reactions (disorder) 12-11-19 13 [facility] Repository (8 sources) FLUoxetine; Translations: [FLUOXETINE] Drug Allergy 08-16-19 17 Other: See Comments [facility] Phone: (15 sources) fluvoxaMINE; Translations: [FLUVOXAMINE] Drug Allergy 12-07-19 16 Other: See Comments [facility] Phone: (18 sources) Latex; Translations: [LATEX, NATURAL RUBBER] Propensity to adverse reactions to drug 08-14-19 17 Rash [facility] Phone: (18 sources) levoFLOXacin; Translations: [LEVOFLOXACIN] Drug Allergy 01-22-20 14 Anxiety, Mental Status Change, Other: See Comments [facility] Phone: (15 sources) NITROFURANTOIN, MACROCRYSTALS / Nitrofurantoin, Monohydrate; Translations: [NITROFURANTOIN MONOHYD/M-CRYST] Drug Allergy 08-21-19 17 Other: See Comments [employer] Phone: (4 sources) Desvenlafaxine Drug Allergy 01-03-20 16 [employer] Phone: (1 source) Latex Allergy to substance 02-09-20 23 Rash [facility] (1 source) Latex Drug allergy (disorder) 11-05-19 25 [facility] Repository (1 source) levoFLOXacin Drug Allergy 11-05-19 [facility] Repository Medications Current Medications Medication Drug Class(es) Dates Sig (Normalized) Sig (Original) [id number] 200 actuat albuterol 0.09 mg/actuat metered dose inhaler (10 sources) beta2-Adrenergic Agonist Start: 06-17-2024 take 2 puff(s) by inhalation every four hours as needed for wheezing albuterol HFA (PROVENTIL HFA, VENTOLIN HFA) 90 mcg/actuation inhaler Indications: URI, acute , History of asthma Inhale 2 Puffs as instructed every 4 hours as needed for wheezing/shortnes s of breath. 8 g 06/17/2024 Active Start: 01-03-2019 albuterol sulf ate 90 mcg/actuation inhaler Inhale 180 mcg into the lungs 01/03/2019 Active Comment on above: Inhale 180 mcg into the lungs benzonatate 100 mg oral capsule (4 sources) Non-narcotic Antitussive Start: 07-02-19 End: 07-17-19 take 1 capsule by mouth every eight hours as needed for cough benzonatate (TESSALON PERLE) 100 mg capsule Indications: Acute cough Take 1 capsule by mouth every 8 hours as needed for cough for up to 15 days. 30 capsule 07/02/2024 07/17/2024 Active betamethasone 0.5 mg/ml / clotrimazole 10 mg/ml topical cream (1 source) Azole Antifungal, Corticosteroid Start: 10-14-19 End: 10-14-19 26 clotrimazole-betame thasone (LOTRISONE) 1-0.05 % cream Apply topically twice a day. 10/13/2024 10/13/2025 Active Comment on above: Apply topically twic e a day. clonazePAM 0.5 mg oral tablet (13 sources) Benzodiazepine Start: 11-20-19 clonazePAM (KLONOPIN) 0.5 mg tablet Take 0.25 mg by mouth as needed. 11/19/2018 Active Start: 06-20-2010 clonazePAM (KL ONOPIN) 0.5 mg tablet Take 0.5 mg by mouth 06/20/2010 Active Comment on above: Take 0.5 mg by mouth estradiol 2 mg oral tablet (14 sources) Estrogen Start: 10-16-2024 take 2 tablets by mouth once daily in the morning, then take 1 tablet by mouth once daily in the evening estradioL (ESTRACE) 2 mg tablet Indications: Gender dysphoria Take 2 Tablets by mouth every morning AND 1 Tablet every evening. 90 Tablet 3 10/16/2024 Active Start: 10-14-2024 End: 10-16-2024 take 2 tablets by mouth once daily in the morning, then take 1 tablet by mouth once daily in the evening estradioL (ESTRACE) 2 mg tablet Indications: Gender dysphoria TAKE 2 TABLETS BY MOUTH EVERY MORNING AND TAKE 1 TABLET BY MOUTH EVERY EVENING 90 Tablet 10/14/2024 10/16/2024 Discontinued (Reorder (E-Cancel Not Sent)) Start: 02-06-2023 End: 2023 take 2 tablets by mouth in the morning, then take 1 tablet by mouth once daily in the evening estradioL (ESTRACE) 2 mg tablet Indications: Gender dysphoria Take 4mg in the AM and 2mg in the PM by mouth daily 90 Tablet 6 02/06/2023 2023 Discontinued (Therapy completed/Not needed) Start: 11-21-2022 take 2 tablets by mo uth in the morning, then take 1 tablet by mouth once daily in the evening estradioL (ESTRACE) 2 mg tablet Indications: Gender dysphoria Take 4mg in the AM and 2mg in the PM by mouth daily 90 Tablet 3 11/21/2022 Active Start: 01-20-2020 End: 11-21-2022 estradiol (ESTRACE) 2 mg tab let Take by mouth. 01/20/2020 Active Comment on above: [facility] Take 4mg in the AM a nd 2mg in the PM by mouth daily TAKE 2 TABLETS BY MO UTH EVERY MORNING AND TAKE 1 TABLET BY MOUTH EVERY EVENING Take 2 Tablets by mo uth every morning AND 1 Tablet every evening. famotidine 20 mg oral tablet (12 sources) Histamine-2 Receptor Antagonist Start: famotidine (PEPCID) 20 mg tablet Take 20 mg by mouth. 06/14/2023 Active finasteride 5 mg oral tablet (12 sources) 5-alpha Reductase Inhibitor Start: take 1 tablet by mouth once daily finasteride (PROSCAR) 5 mg tablet Indications: Gender dysphoria , Hair thinning Take 1 Tablet by mouth once daily. 30 Tablet 3 10/16/2024 Active Start: 10-13-2024 End: 10-16-2024 take 1 tablet by mouth once daily finasteride (PROSCAR) 5 mg tablet Indications: Gender dysphoria , Hair thinning take 1 tablet by mouth once daily 30 Tablet 3 10/13/2024 10/16/2024 Discontinued (Reorder (E-Cancel Not Sent)) Start: 08-23-2023 take 1 tablet by minerva th once daily finasteride (PROSCAR) 5 mg tablet Indications: Gender dysphoria , Hair thinning Take 1 Tablet by mouth once daily 30 Tablet 3 08/23/2023 Active Start: 03-19-2023 End: 08-21-2023 take 1 tablet by mouth once daily finasteride (PROSCAR) 5 mg tablet Take 1 tablet by mouth once daily. 03/19/2023 Active Comment on above: Take 1 Tablet by minerva th once daily Take 1 Tablet by minerva th once daily. FLUoxetine 20 mg oral capsule (19 sources) Serotonin Reuptake Inhibitor Start: 04-18-2024 FLUoxetine (PROZAC) 20 mg capsule take 1 capsule by mouth IN ADDITION TO TWO 40 MG CAPSULES once da... (REFER TO PRESCRIPTION NOTES). 04/18/2024 Active take 1 capsule by mouth twice da tahir FLUoxetine (PROZAC) 40 mg capsule Take 40 mg by mouth 2 (two) times daily Active take 2 capsules by mouth once da tahir FLUoxetine (PROZAC) 40 mg capsule Take 80 mg by mouth once daily. Active Comment on above: Take 40 mg by mouth 2 (two) times daily hydrOXYzine hydrochloride 25 mg oral tablet (8 sources) Antihistamine Start: 11-01-2023 End: 10-29-2024 hydrOXYzine HCL (ATARAX) 25 mg tablet 25 mg nightly at bedtime as needed 11/01/2023 10/29/2024 Active Start: 08-09-2020 hydrOXYzine HC l (ATARAX) 10 mg tablet Take 10 mg by mouth. 08/09/2020 Active Comment on above: 25 mg nightly at bed time as needed predniSONE 10 mg oral tablet (4 sources) Start: 07-09-2024 End: 07-18-2024 predniSONE (DELTASONE) 10 mg tablet Indications: Acute right-sided low back pain with right-sided sciatica Take 4 tabs daily for 3 days, then 2 tabs daily for 3 days, then 1 tab daily for 3 days with food. 21 tablet 07/09/2024 07/18/2024 Active Start: 07-04-2024 End: 07-09-2024 take 2 tablets by mouth once daily predniSONE (DELTASONE) 20 mg tablet Take 2 tablets by mouth once daily for 5 days. 10 tablet 07/04/2024 07/09/2024 Discontinued spironolactone 100 mg oral tablet (20 sources) Aldosterone Antagonist Start: 10-16-2024 take 1 tablet by mouth once daily spironolactone (ALDACTONE) 100 mg tablet Indications: Gender dysphoria Take 1 Tablet by mouth once daily. 30 Tablet 3 10/16/2024 Active Start: 10-14-2024 End: 10-16-2024 take 1 tablet by mouth once daily spironolactone (ALDACTONE) 50 mg tablet Indications: Gender dysphoria take 1 tablet by mouth once daily 30 Tablet 10/14/2024 10/16/2024 Discontinued (Reorder (E-Cancel Not Sent)) Start: 08-23-2023 take 1 tablet by minerva th once daily spironolactone (ALDACTONE) 50 mg tablet Indications: Gender dysphoria Take 1 Tablet by mouth once daily 30 Tablet 6 08/23/2023 Active Start: 02-06-2023 End: 2023 take 1 tablet by mouth once daily spironolactone (ALDACTONE) 25 mg tablet Indications: Gender dysphoria Take 1 Tablet by mouth once daily 30 Tablet 6 02/06/2023 2023 Discontinued (Quantity/Dosage and/or Sig change) Start: 02-06-2023 End: 08-21-2023 take 1 tablet by mouth once daily spironolactone (ALDACTONE) 50 mg tablet Indications: Gender dysphoria Take 1 Tablet by mouth once daily 30 Tablet 6 02/06/2023 08/21/2023 Discontinued (Reorder) Start: 11-21-2022 take 1 tablet by minerva th once daily spironolactone (ALDACTONE) 50 mg tablet Indications: Gender dysphoria Take 1 Tablet by mouth once daily 30 Tablet 3 11/21/2022 Active Start: 11-21-2022 take 1 tablet by minerva th once daily spironolactone (ALDACTONE) 25 mg tablet Indications: Gender dysphoria Take 1 Tablet by mouth once daily 30 Tablet 3 11/21/2022 Active Start: 05-23-2022 End: 11-21-2022 take 1 tablet by mouth once daily spironolactone (ALDACTONE) 50 mg tablet Indications: Gender dysphoria Take 1 Tablet by mouth 1 time each day 30 Tablet 3 08/22/2022 11/21/2022 Discontinued (Reorder) Start: 05-23-2022 End: 11-21-2022 take 1 tablet by mouth once daily spironolactone (ALDACTONE) 25 mg tablet Indications: Gender dysphoria Take 1 Tablet by mouth 1 time each day 30 Tablet 3 08/22/2022 11/21/2022 Discontinued (Reorder) Comment on above: Take 1 Tablet by minerva th once daily Take 1 Tablet by minerav th 1 time each day Take 1 Tablet by minerva th once daily. Completed/Discontinued Medications Medication Drug Class(es) Dates Sig (Normalized) Sig (Original) ALPRAZolam 0.5 mg oral tablet (4 sources) Benzodiazepine Start: 05-04-2021 take 1 tablet by mouth once daily as needed ALPRAZolam (XANAX) 0.5 mg tablet Take 0.5 mg by mouth once daily as needed 05/04/2021 Active Comment on above: Take 0.5 mg by mouth once daily as needed ARIPiprazole 2 mg oral tablet (8 sources) Atypical Antipsychotic Start: 06-04-2024 ARIPiprazole (ABILIFY) 2 mg tablet Take 2 mg by mouth. 06/04/2024 Active Comment on above: Take 2 mg by mouth. brexpiprazole 1 mg oral tablet (7 sources) Atypical Antipsychotic Start: 04-03-2023 take 1.5 tablets by mouth once daily REXULTI 1 mg tab Take 1.5 Tablets by mouth once daily 04/03/2023 Active Start: 01-15-2019 End: 07-02-2024 take 1 tablet by mouth once daily REXULTI 1 mg tablet Take 1 tablet by mouth once daily. 0 01/15/2019 07/02/2024 Discontinued Comment on above: Take 1.5 Tablets by mouth once daily busPIRone hydrochloride 15 mg oral tablet (8 sources) take 1 tablet by mouth twice daily busPIRone (BUSPAR) 15 mg tablet Take 15 mg by mouth 2 (two) times a day Active Comment on above: Take 15 mg by mouth 2 (two) times a day cholecalciferol 0.05 mg oral capsule (9 sources) Vitamin D Start: take 1 capsule by mouth once daily cholecalciferol, vitamin D3, 50 mcg (2,000 unit) capsule Take 1 Capsule by mouth once daily 12/24/2021 Active End: 07-02-2024 take 1 tablet by mouth once daily cholecalciferol (VITAMIN D3) 5,000 unit tab Take 5,000 Units by mouth once daily. 07/02/2024 Discontinued Comment on above: Take 1 Capsule by [facility] once daily esomeprazole 40 mg delayed release oral capsule (10 sources) Proton Pump Inhibitor Start: take 1 capsule by mouth once daily before breakfast esomeprazole (NEXIUM) [address] capsule Take 40 mg by mouth every morning before breakfast 12/14/2023 Active Start: 10-31-2022 End: 10-31-2023 take 1 capsule by mouth once daily before breakfast esomeprazole (NEXIUM) [address] capsule Take 40 mg by mouth every morning before breakfast 10/31/2022 10/31/2023 Active esomeprazole mag nesium (NEXIUM) 40 mg packet Active Comment on above: Take 40 mg by mouth every morning before breakfast L-Methylfolate 15 mg tab (5 sources) Start: 01-30-2019 End: 07-02-2024 take 1 tablet by mouth once daily L-Methylfolate 15 mg tab Take 1 tablet by mouth once daily. 0 01/30/2019 07/02/2024 Discontinued Start: 01-30-2019 take 1 tablet by minerva th once daily L-Methylfolate 15 mg tab Take 1 tablet by mouth once daily. 0 01/30/2019 Active levothyroxine sodium 0.025 mg oral tablet (4 sources) l-Thyroxine Start: 12-13-2021 take 1 tablet by mouth once daily at breakfast levothyroxine 25 mcg tablet take 1 tablet by mouth once daily AT LEAST 30 MINUTES PRIOR TO BREAKFAST/OTHER MEDS 12/13/2021 Active Comment on above: take 1 tablet by minerva th once daily AT LEAST 30 MINUTES PRIOR TO BREAKFAST/OTHER MEDS lurasidone hydrochloride 20 mg oral tablet (1 source) Atypical Antipsychotic Start: 08-15-2023 lurasidone (LATUDA) 20 mg tablet 08/15/2023 Active 24 hr mirabegron 50 mg extended release oral tablet (1 source) beta3-Adrenergic Agonist Start: 10-13-2024 take 50 mg by mouth once daily mirabegron 50 mg Tb24 Take 50 mg by mouth daily. 10/13/2024 Active Comment on above: Take 50 mg by mouth daily. pantoprazole 40 mg delayed release oral tablet (4 sources) Proton Pump Inhibitor Start: 01-03-2019 pantoprazole (PROTONIX) 40 mg EC tablet Take 40 mg by mouth 01/03/2019 Active Comment on above: Take 40 mg by mouth polyethylene glycol 3350 24622 mg powder for oral solution (5 sources) Osmotic Laxative End: 07-02-2024 polyethylene glycol 3350 (MIRALAX) 17 gram/dose powder Take by mouth at bedtime as needed. 07/02/2024 Discontinued prazosin 2 mg oral capsule (12 sources) alpha-Adrenergic Cadence Start: 01-14-2020 prazosin (MINIPRESS) 2 mg capsule 01/14/2020 Active raNITIdine 150 mg oral tablet (5 sources) Histamine-2 Receptor Antagonist End: 07-02-2024 take 1 tablet by mouth once daily at bedtime ranitidine (ZANTAC) 150 mg tablet Take 150 mg by mouth daily at bedtime. 07/02/2024 Discontinued risperiDONE 0.5 mg oral tablet (4 sources) Atypical Antipsychotic take 1 tablet by mouth twice daily risperiDONE (RISPERDAL) 0.5 mg tablet Take 0.5 mg by mouth 2 (two) times daily Active Comment on above: Take 0.5 mg by mouth 2 (two) times daily sildenafil 50 mg oral tablet (4 sources) Phosphodiesterase 5 Inhibitor Start: 01-02-2022 sildenafiL (VIAGRA) 50 mg tablet take 1 tablet by mouth 30 MINUTES prior to intercourse 01/02/2022 Active Comment on above: take 1 tablet by minerva th 30 MINUTES prior to intercourse vortioxetine 20 mg oral tablet (5 sources) Start: 01-14-2019 End: 07-02-2024 take 1 tablet by mouth once daily vortioxetine (TRINTELLIX) 20 mg tab Take 20 mg by mouth once daily. 01/14/2019 07/02/2024 Discontinued Problems Active Problems Problem Classification Problem Date Documented Da te Episodic/Chronic Anxiety disorders (16 sources) Panic disorder with agoraphobia; Translations: [Agoraphobia with panic disorder] Onset: 12-19-2012 01-20-2020 Chronic Genitourinary symptoms and ill-defined conditions (2 sources) Frequency of micturition; Translations: [Frequency of micturition] Onset: 10-13-2024 Episodic Headache; including migraine (2 sources) Headache; including migraine; Translations: [Headache, unspecified] Onset: 06-15-2024 Miscellaneous mental health disorders (10 sources) Gender dysphoria; Translations: [Gender identity disorder, unspecified] Onset: 06-20-2021 08-22-2022 Chronic Mood disorders (5 sources) Major depressive disorder; Translations: [Major depressive disorder, single episode, unspecified] Onset: 08-12-2010 01-20-2020 Chronic Other aftercare (1 source) Drug therapy finding; Translations: [terminal carman (current) use of other agents affecting estrogen receptors and estrogen levels] 02-08-2023 Episodic Other connective tissue disease (2 sources) Fibromyalgia; Translations: [Fibromyalgia] Onset: 08-26-2024 Episodic Other lower respiratory disease (3 sources) Cough; Translations: [Acute cough] 06-17-2024 Episodic Other lower respiratory disease (1 source) H/O: asthma; Translations: [Personal history of other diseases of the respiratory system] 06-17-2024 Episodic Other lower respiratory disease (1 source) Wheezing; Translations: [Wheezing] 07-04-2024 Episodic Other nervous system disorders (1 source) Abnormal involuntary movement; Translations: [Unspecified abnormal involuntary movements] 02-08-2023 Episodic Other nutritional; endocrine; and metabolic disorders (5 sources) Hemochromatosis; Translations: [Hemochromatosis, unspecified] Onset: 08-23-2016 01-20-2020 Chronic Other screening for suspected conditions (not mental disorders or infectious disease) (1 source) Encounter for screening mammogram for malignant neoplasm of breast; Translations: [Encounter for screening mammogram for malignant neoplasm of breast] Onset: 04-13-2024 Episodic Other skin disorders (3 sources) Loss of hair; Translations: [Nonscarring hair loss, unspecified] Onset: 02-20-2024 08-21-2023 Episodic Residual codes; unclassified (1 source) Viral syndrome; Translations: [Other general symptoms and signs] 07-04-2024 Episodic Unclassified (1 source) Acute cough; Translations: [Acute cough] Onset: 07-02-2024 Past or Other Problems Problem Classification Problem Date Documented Date Episodic/Chronic Administrative/social admission (1 source) Patient encounter status; Translations: [Other specified counseling] Onset: 02-20-2024 02-20-2024 Episodic Fever of unknown origin (2 sources) Fever, unspecified; Translations: [Fever, unspecified] Onset: 06-15-2024 Episodic Malaise and fatigue (2 sources) Other fatigue; Translations: [Other fatigue] Onset: 12-11-2023 Episodic Other connective tissue disease (2 sources) Myalgia, unspecified site; Translations: [Myalgia, unspecified site] Onset: 12-11-2023 Episodic Other nervous system disorders (2 sources) Other abnormalities of gait and mobility; Translations: [Other abnormalities of gait and mobility] Onset: 06-15-2024 Episodic Other upper respiratory infections (4 sources) Acute upper respiratory infection; Translations: [Acute upper respiratory infection, unspecified] Onset: 07-10-2024 06-17-2024 Episodic Residual codes; unclassified (2 sources) Other general symptoms and signs; Translations: [Other general symptoms and signs] Onset: 06-15-2024 Episodic Spondylosis; intervertebral disc disorders; other back problems (3 sources) Acute back pain with sciatica; Translations: [Lumbago with sciatica, right side] Onset: 07-10-2024 07-09-2024 Episodic Syncope (3 sources) Syncope and collapse; Translations: [Syncope and collapse] Onset: 05-02-2023 Episodic Results Test Name Value Interpretation Reference Range Facility MR/BMS[facility]BPon 11-04-2024 MR/BMS[facility]BP [address], [place] [address] OFFICE VISIT Date of Service: 11/04/24 MR#: [id number] Acct: [id number] Name: REUBEN SAHU Rep #: [id number] : 1975 Provider: KRISTIAN monroe Age/Sex: 49/M Location: [facility] Status: Signed Intake Vital Signs 09/10/24 10:35 10/30/24 09:22 11/04/24 11:26 Height 5 ft 6 in 5 ft 6 in 5 ft 6 in Weight: 212 lb 212 lb BMI 34.2 34.2 BP 123/77 H 114/66 128/87 H Blood Pressure Location Lt brachial Lt brachial Lt brachial Position Sitting Sitting Sitting Respiration 18 16 Pulse 73 74 73 Pulse Source Monitor Monitor Monitor Temp 97.8 F Pulse Oximetry (%) 98 Oxygen Delivery Method room air BP Intake Visit Reasons: 8wfu Accompanied by: Self Allergies latex Allergy (Verified 11/04/24 11:31) Rash levofloxacin (From Levaquin) Allergy (Verified 11/04/24 11:31) Shortness of breath Medications ???Medication ???Instructions ???Recorded ???Confirmed ???Type esomeprazole magnesium 40 mg 40 mg PO QAM 11/19/23 11/04/24 His tory capsule,delayed release famotidine 20 mg tablet 20 mg PO DAILY 11/19/23 11/04/24 H istory spironolactone 50 mg tablet 50 mg PO QDAY 11/19/23 11/04/24 Hi story finasteride 5 mg tablet 5 mg PO QDAY 06/04/24 11/04/24 His tory estradiol 2 mg tablet 6 mg PO QDAY 10/30/24 11/04/24 His tory buspirone 15 mg tablet 15 mg PO BID #180 tabs 11/04/24 Rx clonazepam 0.5 mg tablet 0.5 mg PO QHS PRN anxiety #30 tabs 11/04/24 11/04/24 Rx fluoxetine 40 mg capsule 80 mg (2 x 40 mg) PO QDAY #180 cap s 11/04/24 11/04/24 Rx hydroxyzine HCl 25 mg tablet 25 mg PO QDAY #90 tabs 11/04/24 Rx mirabegron 25 mg tablet,extended 50 mg PO QDAY 11/04/24 11/04/24 Hi story release 24 hr (Myrbetriq) prazosin 2 mg capsule 2 mg PO QHS #90 caps 11/04/2410/18 Rx PFSH Medical History (Updated 10/30/24 @ 16:[address] Arleth Jackson MD) Blood glucose elevated Encounter to establish care Preventative health care Fibromyalgia Gender dysphoria Vision problems GERD (gastroesophageal reflux disease) High cholesterol Hypertension Generalized headaches Emotional problems Asthma Surgical History H/O endoscopy History of liver biopsy History of cystoscopy History of colonoscopy Family History Other Alcoholism Anxiety Arthritis Breast cancer Colon cancer Depression Diabetes Hypertension Mental disorder Psychiatric care Suicide attempt Social History household members: none Smoking Status: Never smoker alcohol intake: never substance use type: does not use HPI History of Present Illness History provided by: patient Chief complaint: Anxiety/Panic HPI: Reuben Carreno is a 49 year old male patient presenting today for a follow up evaluation. Reports things have been going well since last appointment. Intrusive thoughts have improved since last appointment. Has been having some infrequent episodes of heightened anxiety and feels they are triggered by something. Does not feel anxious day to day. Denies recent feelings of depression. Does report family feels they are depressed because they are wanting to rest more when they are at home. Denies SI/HI. Reports having some more recent concerns with falling asleep but does stay asleep well. Reports going to group therapy for the transgender community and felt this was anxiety inducing for them. Appetite has been poor and is not eating as well as they have before. Denies any recent weight changes. Previous similar episode: Yes Age of first onset of symptoms: 11-20 years Review of Systems Constitutional Reports: fatigue; Denies: fever(s), chills or change in weight Eyes Denies: change in vision or blurry vision Ears, Nose, Mouth, Throat Denies: throat pain or neck pain Cardiovascular Denies: chest pain, palpitations or dyspnea Respiratory Denies: dyspnea, cough or wheezing Gastrointestinal Reports: heartburn, diarrhea and constipation; Denies: abdominal pain, nausea or vomiting Genitourinary Reports: urinary frequency and other; Denies: dysuria or urinary urgency Musculoskeletal Denies: back pain or neck pain Integumentary/Breast Denies: rash, pruritus or erythema Neurological Reports: headache(s) Psychiatric Reports: panic attacks; Denies: anxiety, mood swings, change in sleep pattern, hopelessness, loss of interest, irritability, paranoia, memory loss, difficulty concentrating, visual hallucinations, auditory hallucinations, s uicidal ideation or homicidal ideation Endocrine Reports: fatigue Hematologic/Lymphatic Denies: (more content not included)... Normal [facility] CBC W/Diff, Automatedon 10-18 Absolute Lymph 2.01 X10 3/uL Normal 0.83-4.51 [facility] Comment on above: Performed By: #### L 501.9910, L100.0100, L500.4050, L500.4100 #### [facility] [address] [place], [address] Absolute Neut 2.0 X10 3/uL Normal 2.0-7.7 [facility] Comment on above: Performed By: #### L 501.9910, L100.0100, L500.4050, L500.4100 #### [facility] [address] [place], [address] Basophils/100 WBC (Bld) 1.6 % High 0-1 [facility] Comment on above: Performed By: #### L 501.9910, L100.0100, L500.4050, L500.4100 #### [facility] [address] [place], [address] Eosinophils/100 WBC (Bld) 6.0 % High 0-5 [facility] Comment on above: Performed By: #### L 501.9910, L100.0100, L500.4050, L500.4100 #### [facility] [address] [place], [address] Erythrocyte distribution width (RBC) [Ratio] 13.6 % Normal 11.6-14.6 [facility] Comment on above: Performed By: #### L 501.9910, L100.0100, L500.4050, L500.4100 #### [facility] [address] [place], [address] Hematocrit (Bld) [Volume fraction] 41.6 % Normal 40-54 [facility] Comment on above: Performed By: #### L 501.9910, L100.0100, L500.4050, L500.4100 #### [facility] [address] [place], [address] Hemoglobin (Bld) [Mass/Vol] 14.1 g/dL Normal 13.0-16.5 [facility] Comment on above: Performed By: #### L 501.9910, L100.0100, L500.4050, L500.4100 #### [facility] [address] [place], [address] IG% 0.200 Normal 0.0-0.9 [facility] Comment on above: Result Comment: IG% - Immature Granulocytes (promyelocytes, myelocytes and metamyelocytes) > 1% indicates that a LEFT SHIFT is Present. Performed By: #### L 501.9910, L100.0100, L500.4050, L500.4100 #### [facility] [address] [place], [address] Lymphocytes/100 WBC (Bld) 41.4 % High 19-41 [facility] Comment on above: Performed By: #### L 501.9910, L100.0100, L500.4050, L500.4100 #### [facility] [address] [place], [address] MCH (RBC) [Entitic mass] 30.1 pg Normal 27.0-32.0 [facility] Comment on above: Performed By: #### L 501.9910, L100.0100, L500.4050, L500.4100 #### [facility] [address] [place], [address] MCHC (RBC) [Mass/Vol] 33.9 g/dL Normal 32-36 [facility] Comment on above: Performed By: #### L 501.9910, L100.0100, L500.4050, L500.4100 #### [facility] [address] [place], [address] MCV (RBC) [Entitic vol] 88.7 fL Normal 80-94 [facility] Comment on above: Performed By: #### L 501.9910, L100.0100, L500.4050, L500.4100 #### [facility] [address] [place], [address] Monocytes/100 WBC (Bld) 9.7 % Normal 0-10 [facility] Comment on above: Performed By: #### L 501.9910, L100.0100, L500.4050, L500.4100 #### [facility] [address] [place], [address] Neutrophils/100 WBC (Bld) 41.1 % Low 47-70 [facility] Comment on above: Performed By: #### L 501.9910, L100.0100, L500.4050, L500.4100 #### [facility] [address] [place], [address] Nucleated RBC (Bld) [#/Vol] 0 10*3/uL Normal 0-5 [facility] Comment on above: Performed By: #### L 501.9910, L100.0100, L500.4050, L500.4100 #### [facility] [address] [place], [address] Platelet mean volume (Bld) [Entitic vol] 9.5 fL Normal 6.2-12.0 [facility] Comment on above: Performed By: #### L 501.9910, L100.0100, L500.4050, L500.4100 #### [facility] [address] [place], [address] Platelets (Bld) [#/Vol] 282 10*3/uL Normal 150-450 [facility] Comment on above: Performed By: #### L 501.9910, L100.0100, L500.4050, L500.4100 #### [facility] [address] [place], [address] RBC (Bld) [#/Vol] 4.69 10*6/uL Normal 4.6-6.2 [facility] Comment on above: Performed By: #### L 501.9910, L100.0100, L500.4050, L500.4100 #### [facility] [address] [place], [address] RDW SD 44.3 fl High 35.1-43.9 [facility] Comment on above: Performed By: #### L 501.9910, L100.0100, L500.4050, L500.4100 #### [facility] [address] [place], [address] WBC (Bld) [#/Vol] 4.9 10*3/uL Normal 4.4-11.0 [facility] Comment on above: Performed By: #### L 501.9910, L100.0100, L500.4050, L500.4100 #### [facility] [address] [place], [address] Comprehensive Metabolic Prof ilon 10-30-2024 Albumin [Mass/Vol] 4.2 g/dL Normal 3.5-5.0 [facility] Comment on above: Performed By: #### L 501.9910, L100.0100, L500.4050, L500.4100 #### [facility] [address] [place], [address] Albumin/Globulin [Mass ratio] 1.5 {ratio} Normal 0.9-2.4 [facility] Comment on above: Performed By: #### L 501.9910, L100.0100, L500.4050, L500.4100 #### [facility] [address] [place], [address] ALK PHOS 85 U/L Normal 40-129 [facility] Comment on above: Performed By: #### L 501.9910, L100.0100, L500.4050, L500.4100 #### [facility] [address] [place], [address] ALT [Catalytic activity/Vol] 32 U/L Normal <=46 [facility] Comment on above: Performed By: #### L 501.9910, L100.0100, L500.4050, L500.4100 #### [facility] [address] [place], [address] AST [Catalytic activity/Vol] 25 U/L Normal <=37 [facility] Comment on above: Performed By: #### L 501.9910, L100.0100, L500.4050, L500.4100 #### [facility] [address] [place], [address] Bilirubin [Mass/Vol] 0.43 mg/dL Normal 0.00-1.30 [facility] Comment on above: Performed By: #### L 501.9910, L100.0100, L500.4050, L500.4100 #### [facility] [address] [place], [address] BUN/CRE 12.4 RATIO Normal 10-20 [facility] Comment on above: Performed By: #### L 501.9910, L100.0100, L500.4050, L500.4100 #### [facility] [address] [place], [address] Calcium [Mass/Vol] 9.1 mg/dL Normal 7.6-11.0 [facility] Comment on above: Performed By: #### L 501.9910, L100.0100, L500.4050, L500.4100 #### [facility] [address] [place], [address] Chloride [Moles/Vol] 103 mmol/L Normal 98-108 [facility] Comment on above: Performed By: #### L 501.9910, L100.0100, L500.4050, L500.4100 #### [facility] [address] [place], [address] CO2 [Moles/Vol] 20.8 mmol/L Low 21.0-32.0 [facility] Comment on above: Performed By: #### L 501.9910, L100.0100, L500.4050, L500.4100 #### [facility] [address] [place], [address] Creatinine [Mass/Vol] 1.13 mg/dL Normal 0.70-1.20 [facility] Comment on above: Performed By: #### L 501.9910, L100.0100, L500.4050, L500.4100 #### [facility] [address] [place], [address] GAP 11 Normal 5-15 [facility] Comment on above: Performed By: #### L 501.9910, L100.0100, L500.4050, L500.4100 #### [facility] [address] [place], [address] GFR/1.73 sq M.predicted among non-blacks MDRD (S/P/Bld) [Vol rate/Area] 79 mL/min/{1.73_m2} Normal >60 [facility] Comment on above: Result Comment: mL/m in/1.73m2 CKD-EPI Creatinine Equation (2020) Performed By: #### L 501.9910, L100.0100, L500.4050, L500.4100 #### [facility] [address] [place], [address] Globulin (S) [Mass/Vol] 2.7 g/dL Normal 2.2-4.2 [facility] Comment on above: Performed By: #### L 501.9910, L100.0100, L500.4050, L500.4100 #### [facility] [address] [place], [address] Glucose [Mass/Vol] 132 mg/dL High 70-99 [facility] Comment on above: Performed By: #### L 501.9910, L100.0100, L500.4050, L500.4100 #### [facility] [address] [place], [address] Potassium [Moles/Vol] 3.9 mmol/L Normal 3.3-5.1 [facility] Comment on above: Performed By: #### L 501.9910, L100.0100, L500.4050, L500.4100 #### [facility] [address] [place], [address] Sodium [Moles/Vol] 135 mmol/L Normal 133-145 [facility] Comment on above: Performed By: #### L 501.9910, L100.0100, L500.4050, L500.4100 #### [facility] [address] [place], [address] T PROT 6.9 g/dL Normal 5.9-8.4 [facility] Comment on above: Performed By: #### L 501.9910, L100.0100, L500.4050, L500.4100 #### [facility] [address] [place], [address] Urea nitrogen [Mass/Vol] 14 mg/dL Normal 4-19 [facility] Comment on above: Performed By: #### L 501.9910, L100.0100, L500.4050, L500.4100 #### [facility] [address] [place], [address] Hemoglobin A1con 10-30-2024 HbA1c (Bld) [Mass fraction] 6.1 % High <=5.6 [facility] Comment on above: Result Comment: Norm al < 5.7 % Prediabetic 5.7 - 6.4 % Diabetic >or= 6.5 % Please note range changes. Performed By: #### L 501.9985 #### [facility] [address] [place], [address] Internal Medicine Office Vis iton 10-30-2024 Internal Medicine Office Visit [facility] [address] [place], [place] [address] OFFICE VISIT Date of Service: 10/30/24 MR#: [id number] Acct: [id number] Name: REUBEN SAHU Rep #: [id number] : 1975 Provider: Dr. Arleth osborne MD Age/Sex: 49/M Location: [facility] Status: Signed Intake Vital Signs 07/16/24 07:53 09/10/24 10:35 10/30/24 09:22 Height 5 ft 6 in 5 ft 6 in 5 ft 6 in Weight: 212 lb BMI 34.2 BP 123/77 H 114/66 Blood Pressure Location Lt brachial Lt brachial Position Sitting Sitting Respiration 18 Pulse 73 74 Pulse Source Monitor Monitor Temp 97.8 F Temp Source Temporal Pulse Oximetry (%) 98 Oxygen Delivery Method room air Intake Visit Reasons: HYDROPULPER. EST CARE - PSYCH PT/CONSENT ONLY Chief Complaint: HYDROPULPER. EST CARE- Is patient in pain?: Yes (4 all over ) Allergies latex Allergy (Verified 10/30/24 09:21) Rash levofloxacin (From Levaquin) Allergy (Verified 10/30/24 09:21) Shortness of breath Medications ???Medication ???Instructions ???Recorded ???Confirmed ???Type esomeprazole magnesium 40 mg 40 mg PO QAM 11/19/23 10/30/24 His tory capsule,delayed release famotidine 20 mg tablet 20 mg PO DAILY 11/19/23 10/30/24 H istory spironolactone 50 mg tablet 50 mg PO QDAY 11/19/23 10/30/24 Hi story finasteride 5 mg tablet 5 mg PO QDAY 06/04/24 10/30/24 His tory fluoxetine 40 mg capsule 80 mg (2 x 40 mg) PO QDAY #180 cap s 06/04/24 10/30/24 Rx buspirone 15 mg tablet 15 mg PO BID #180 tabs 07/16/24 Rx clonazepam 0.5 mg tablet 0.5 mg PO QHS PRN anxiety #30 tabs 09/10/24 10/30/24 Rx hydroxyzine HCl 25 mg tablet 25 mg PO QDAY #90 tabs 09/10/24 Rx prazosin 2 mg capsule 2 mg PO QHS #90 caps 09/10/2410/18 Rx estradiol 2 mg tablet 6 mg PO QDAY 10/30/24 10/30/24 His tory mirabegron 25 mg tablet,extended 25 mg PO QDAY 10/30/24 10/30/24 Hi story release 24 hr (Myrbetriq) [facility] Medical History (Updated 10/30/24 @ 10:[address] Arleth Jackson MD) Encounter to establish care Preventative health care Fibromyalgia Gender dysphoria Vision problems GERD (gastroesophageal reflux disease) High cholesterol Hypertension Generalized headaches Emotional problems Asthma Surgical History H/O endoscopy History of liver biopsy History of cystoscopy History of colonoscopy Family History Other Alcoholism Anxiety Arthritis Breast cancer Colon cancer Depression Diabetes Hypertension Mental disorder Psychiatric care Suicide attempt Social History household members: none Smoking Status: Never smoker alcohol intake: never substance use type: does not use HPI HPI Chief Complaint: HYDROPULPER. EST CARE- Details: REUBEN HOFFMANN, is a 49 M who presents to the office today to establish care. No acute concerns at this time. Had previously followed up with Dr. Crocker in [place]. He also currently follows up with urology, psychiatry and a provider in [place] for gender affirming care. Has been on Estradiol and spironolactone for about 3 years. At this time, no plans for surgery. Last colonoscopy was 2 years ago and prior to that, had 2 colonoscopies with history of polyps. He reports family history of cancers on his father side, not sure what kind of cancer. Mother from breast cancer. Recently started on Myrbetriq due to urinary frequency, so far cannot tell if it is that helpful or not. Also follows up with dermatology at [facility]. ROS Const Constitutional: No body ache, chills, excessive sweating, fatigue, fever(s), frequent falls, headache(s), snoring, weight change, sleep problems, abnormal sleep pattern or change in appetite Eyes Eyes: No blurry vision, change in vision, bulging eyes, floaters, visual disturbances, eye pain or Light sensitivity ENT ENT: No abnormal hearing, ear or mastoid pain, tinnitus, balance problems, nosebleed/epistaxis, nasal congestion, headache(s), neck pain or sore throat Resp Respiratory: No cough, excessive phlegm production, pain on inspiration, shortness of breath, snoring or wheezing Cardio Cardiology: No chest pain at rest, chest pain with exertion, excessive sweating, shortness of breath, dyspnea on exertion, lightheadedness, orthopnea or palpitations Gastro GI: No abdominal pain, change in bowel habits, constipation, cramping, diarrhea, nausea/dyspepsia or vomiting Genitourinary Male: No burning urination, painful urination, urinary incontinence or urinary frequency Musc Musculoskeletal: No abnormal gait, joint pain, back pain, limited range of motion, neck pain, numbness or tingling Skin Skin: No dr (more content not included)... Normal [facility] Lipid Profileon 10-30-2024 CHOL:HDL 3.35 Normal [facility] Comment on above: Performed By: #### L 501.9910, L100.0100, L500.4050, L500.4100 #### [facility] [address] [place], [address] Cholesterol [Mass/Vol] 165 mg/dL Normal <=200 [facility] Comment on above: Result Comment: Chol esterol level, Desirable <200 mg/dL Borderline high cholesterol 200-239 mg/dL High cholesterol >=240 mg/dL Recommendations of the NCEP Adult Treatment Panel for the following risk-cutoff thresholds for the [place] population. Performed By: #### L 501.9910, L100.0100, L500.4050, L500.4100 #### [facility] [address] [place], [address] Cholesterol in HDL [Mass/Vol] 49 mg/dL Normal [facility] Comment on above: Result Comment: Kristina onal Cholesterol Education Program (NCEP) guidelines: <40 mg/dL: Low HDL-cholesterol (major risk factor for CHD) >= 60 mg/dL: High HDL-cholesterol (negative risk factor for CHD) HDL-cholesterol is affected by a number of factors, e.g. smoking, exercise, hormones, sex and age. Performed By: #### L 501.9910, L100.0100, L500.4050, L500.4100 #### [facility] [address] [place], [address] Cholesterol in LDL [Mass/Vol] 82 mg/dL Normal [facility] Comment on above: Result Comment: Bord mfcjwi=424-247 mg/dL Higher Zwmp=386 mg/dL or greater Performed By: #### L 501.9910, L100.0100, L500.4050, L500.4100 #### [facility] [address] [place], [address] Cholesterol in VLDL [Mass/Vol] 34 mg/dL Normal 5-40 [facility] Comment on above: Performed By: #### L 501.9910, L100.0100, L500.4050, L500.4100 #### [facility] [address] [place], [address] Triglyceride [Mass/Vol] 168 mg/dL Normal [facility] Comment on above: Result Comment: The drugs N-Acetylcysteine and Metamizole may falsely depress this assay. Normal range: <150 mg/dL Borderline High: 150-199 mg/dL High: 200-499 mg/dL Very High: >500 mg/dL Performed By: #### L 501.9910, L100.0100, L500.4050, L500.4100 #### [facility] [address] [place], [address] PSA,Total - Annual Screenon 10-30-2024 PSA,TOT SCREEN 0.12 ng/mL Normal 0.02-4.00 [facility] Comment on above: Result Comment: This test was performed using the [employer] tPSA method. Measured values of a patient??sample can vary depending on the testing procedure used. PSA values determined on patient samples by different testing procedures cannot be used interchangeably. If there is a change in PSA assays while monitoring therapy, sequential testing should be performed to confirm baseline values. Performed By: #### L 501.9910, L100.0100, L500.4050, L500.4100 #### [facility] [address] [place], [address] MR/BMS.BPon 09-10-2024 MR/BMS.[address], [address] [place] [address] OFFICE VISIT Date of Service: 09/10/24 MR#: [id number] Acct: [id number] Name: REUBEN SAHU Rep #: [id number] : 1975 Provider: KRISTIAN monroe Age/Sex: 49/M Location: [facility] Status: Signed Intake Vital Signs 07/16/24 07:53 09/10/24 10:35 Height 5 ft 6 in 5 ft 6 in BP 123/77 H Blood Pressure Location Lt brachial Position Sitting Pulse 73 Pulse Source Monitor BP Intake Visit Reasons: 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 Accompanied by: Self Is patient in pain?: Yes (3) Allergies latex Allergy (Verified 09/10/24 10:33) Rash levofloxacin (From Levaquin) Allergy (Verified 09/10/24 10:33) Shortness of breath Medications ???Medication ???Instructions ???Recorded ???Confirmed ???Type esomeprazole magnesium 40 mg 40 mg PO QAM 11/19/23 09/10/24 His tory capsule,delayed release famotidine 20 mg tablet 20 mg PO DAILY 11/19/23 09/10/24 H istory spironolactone 50 mg tablet 50 mg PO QDAY 11/19/23 09/10/24 Hi story estradiol 2 mg tablet 6 mg PO QDAY 06/04/24 09/10/24 His tory finasteride 5 mg tablet 5 mg PO QDAY 06/04/24 09/10/24 His tory fluoxetine 40 mg capsule 80 mg (2 x 40 mg) PO QDAY #180 cap s 06/04/24 09/10/24 Rx buspirone 15 mg tablet 15 mg PO BID #180 tabs 07/16/24 Rx clonazepam 0.5 mg tablet 0.5 mg PO QHS PRN anxiety #30 tabs 09/10/24 09/10/24 Rx hydroxyzine HCl 25 mg tablet 25 mg PO QDAY #90 tabs 09/10/24 Rx prazosin 2 mg capsule 2 mg PO QHS #90 caps 09/10/2408/19 Rx PFSH Medical History (Updated 09/10/24 @ 10:35 by Aranza Diaz) Fibromyalgia Gender dysphoria Vision problems GERD (gastroesophageal reflux disease) High cholesterol Hypertension Generalized headaches Emotional problems Asthma Surgical History H/O endoscopy History of liver biopsy History of cystoscopy History of colonoscopy Family History Other Alcoholism Anxiety Arthritis Breast cancer Colon cancer Depression Diabetes Hypertension Mental disorder Psychiatric care Suicide attempt Social History household members: none Smoking Status: Never smoker alcohol intake: never substance use type: does not use HPI History of Present Illness History provided by: patient Chief complaint: Anxiety HPI: Reuben Carreno is a 49 year old male patient presenting today for a follow up evaluation. Report they have been doing well. Reports there have been some ups and downs with mood but feels this has been manageable for them. Does feel their khalif has been beneficial for them to lean on to help with their mental health. Does report having sometimes increased intrusive thoughts but is only about 2% of the time and feels they are well managed and easy to work through. Does report being recently diagnosed with fibromyalgia and is going to potentially start flexeril and is thinking about making the transition to a TCA to better manage this. Denies SI/HI. Does report some heightened anxiety more recently due to change in appearance with hormone therapy. Has not been seeing their therapist who specializes in gender dysphoria. Has started in group therapy in [place] but has only been one time and is planning to return. Sleep has been disrupted due to pain management. Appetite has been poor but has still been trying to eat. Has gained some weight recently. Previous similar episode: Yes Age of first onset of symptoms: 11-20 years Review of Systems Constitutional Reports: change in weight (gain) and fatigue; Denies: fever(s) or chills Eyes Denies: change in vision or blurry vision Ears, Nose, Mouth, Throat Denies: throat pain or neck pain Cardiovascular Denies: chest pain, palpitations or dyspnea Respiratory Reports: cough; Denies: dyspnea or wheezing Gastrointestinal Reports: heartburn, diarrhea and constipation; Denies: abdominal pain, nausea or vomiting Genitourinary Reports: urinary frequency and other; Denies: dysuria or urinary urgency Musculoskeletal Denies: back pain or neck pain Integumentary/Breast Denies: rash, pruritus or erythema Neurological Reports: headache(s) Psychiatric Reports: anxiety, irritability, memory loss and difficulty concentrating; Denies: mood swings, panic attacks, change in sleep pattern, hopelessness, loss of interest, paranoia, visual hallucinations, auditory hallucinations, suicidal ideation or homicidal ideation Endocrine Reports: fatigue Hematologic/Lymphatic Denies: easy bruising Allergic/Immunologic Denies: wheezing Exam Mental Status Exam - Psych Appearance casually dress (more content not included)... Normal [facility] MR/BMS.BPon 07-16-2024 MR/BMS.BP [facility] [address], [address] [place] [address] OFFICE VISIT Date of Service: 07/16/24 MR#: [id number] Acct: [id number] Name: REUBEN SAHU Rep #: [id number] : 1975 Provider: KRISTIAN monroe Age/Sex: 49/M Location: [facility] Status: Signed Intake Vital Signs 05/05/24 10:32 06/04/24 07:05 07/05/24 10:21 07/16/24 07:32 Height 5 ft 7 in 5 ft 7 in 5 ft 6 in 5 ft 7 in BP 111/74 Blood Pressure Location Lt brachial Position Sitting Respiration 16 Pulse 86 Pulse Source Monitor BP Intake Visit Reasons: 6 wk FU Accompanied by: Self Allergies latex Allergy (Verified 07/16/24 07:38) Rash levofloxacin (From Levaquin) Allergy (Verified 07/16/24 07:38) Shortness of breath Medications ???Medication ???Instructions ???Recorded ???Confirmed ???Type esomeprazole magnesium 40 mg 40 mg PO QAM 11/19/23 07/16/24 His tory capsule,delayed release famotidine 20 mg tablet 20 mg PO DAILY 11/19/23 07/16/24 H istory spironolactone 50 mg tablet 50 mg PO QDAY 11/19/23 07/16/24 Hi story clonazepam 0.5 mg tablet 0.5 mg PO QHS PRN anxiety #30 tabs 03/24/24 07/16/24 Rx prazosin 2 mg capsule 2 mg PO QHS #90 caps 05/05/2406/21 Rx estradiol 2 mg tablet 6 mg PO QDAY 06/04/24 07/16/24 His tory finasteride 5 mg tablet 5 mg PO QDAY 06/04/24 07/16/24 His tory fluoxetine 40 mg capsule 80 mg (2 x 40 mg) PO QDAY #180 cap s 06/04/24 07/16/24 Rx benzonatate 100 mg capsule 100 mg PO Q8 PRN cough 07/16/24 History buspirone 15 mg tablet 15 mg PO BID #180 tabs 07/16/24 Rx guaifenesin 600 mg tablet, 600 mg PO BID 07/16/24 07/16/24 Hi story extended release 12 hr (Mucinex) hydroxyzine HCl 25 mg tablet 25 mg PO QDAY #90 tabs 07/16/24 Rx PFSH Medical History Gender dysphoria Vision problems GERD (gastroesophageal reflux disease) High cholesterol Hypertension Generalized headaches Emotional problems Asthma Surgical History H/O endoscopy History of liver biopsy History of cystoscopy History of colonoscopy Family History Other Alcoholism Anxiety Arthritis Breast cancer Colon cancer Depression Diabetes Hypertension Mental disorder Psychiatric care Suicide attempt Social History (System 07/07/24 @ 06:37 by Maris Richards) household members: none Smoking Status: Never smoker alcohol intake: never substance use type: does not use HPI History of Present Illness History provided by: patient HPI: Reuben Carreno is a 49 year old male patient presenting today for a follow up evaluation. Reports since last appointment they have stopped taking aripiprazole as they felt they could not function with it after about 5 doses. Reports they have been ill 2x with back to back viral infections and is recovering from this currently. Does report some low mood when he was ill due to feeling like he was not going to make it. Does not feel depressed currently. Does report a lack of motivation recently and feeling fatigued. States they passed out 2x while he was ill. Denies SI/HI. Denies any recent increase in anxiety. Does feel where they are is manageable. Denies any panic attacks since last appointment. Admits to seeing shadows when they were sick but nothing since being ill. Denies any AH. Admits to sometimes fleeting intrusive thoughts but feels they are able to keep them at bay and is not fighting the thoughts throughout the day and they are rarely occurring. Previous similar episode: Yes Age of first onset of symptoms: 11-20 years Review of Systems Constitutional Reports: change in weight (gain with prednisone) and fatigue; Denies: fever(s) or chills Eyes Denies: change in vision or blurry vision Ears, Nose, Mouth, Throat Denies: throat pain or neck pain Cardiovascular Denies: chest pain, palpitations or dyspnea Respiratory Reports: cough; Denies: dyspnea or wheezing Gastrointestinal Reports: heartburn, diarrhea and constipation; Denies: abdominal pain, nausea or vomiting Genitourinary Reports: urinary frequency and other; Denies: dysuria or urinary urgency Musculoskeletal Denies: back pain or neck pain Integumentary/Breast Denies: rash, pruritus or erythema Neurological Reports: headache(s) Psychiatric Reports: anxiety, irritability, memory loss and difficulty concentrating; Denies: mood swings, panic attacks, change in sleep pattern, hopelessness, loss of interest, paranoia, visual hallucinations, auditory hallucinations, suicidal ideation or homicidal ideation Endocrine Reports: fatigue Hematologic/Lymphatic Denies: easy bruising Allergic/Immunologic Denies: whe (more content not included)... Normal [facility] 07-09-2024 [facility] Office Visit (UCWSTR ) REUBEN SAPP ([id number]) 1975 M Date Time Provider Department 07/09/24 4:45 PM MINERVA [facility] During your visit today, we recorded the following information about you: Temperature Pulse Respiration Blood pressure 97.6 degrees 67/minute 18/minute 133/85 Weight 97.5 kg Minerva Easton, SHIVANI.PUPPET MAKER 07/09/2024 5:08 PM Signed Subjective HPI Pt is a 49 y/o male who presents with R sided shooting low back pain x 1 day. Pt reports picking up a 40 pack case of water at the grocery store yesterday and had minimal back pain afterward This morning he woke up with severe shooting R sided back pain and felt like he could not move. No reports of loss of bowel/bladder. No reports of saddle anesthesia. Pt does report mild tingling in the R anterior thigh. Pt also reports having flu-like symptoms x 2 weeks. He was seen on 07/04 and given a prescription for prednisone for 5 days. Over the weekend, the pt reports coughing so hard that he passed out. Pt reports going to [place] ER to be evaluated, which he was told that he had a vasovagal response from coughing. Pt has been taking tessalon perle and state that it has been helping. He has had two chest xrays which were negative. Review of Systems Constitutional: Positive for malaise/fatigue. Negative for chills and fever. HENT: Negative for congestion, ear pain, sinus pain and sore throat. Respiratory: Positive for cough and sputum production (green sputum). Cardiovascular: Negative. Musculoskeletal: Positive for back pain (shooting pain down R leg). Neurological: Positive for tremors (chronic per patient). BP 133/85 Pulse 67 Temp 36.4 ?C (97.6 ?F) Resp 18 Wt 97.5 kg (214 lb 15.2 oz) SpO2 100% BMI 33.78 kg/m? PAST MEDICAL HISTORY Diagnosis Date Anxiety Asthma Depression GERD (gastroesophageal reflux disease) Hemochromatosis Hypertension No past surgical history on file. ALLERGIES Fluvoxamine; Nitrofurantoin Monohyd/M-Cryst; Latex, Natural Rubber; and Levofloxacin MEDICATIONS predniSONE (DELTASONE) 10 mg tablet Take 4 tabs daily for 3 days, then 2 tabs daily for 3 days, then 1 tab daily for 3 days with food. benzonatate (TESSALON PERLE) 100 mg capsule Take 1 capsule by mouth every 8 hours as needed for cough for up to 15 days. FLUoxetine (PROZAC) 20 mg capsule take 1 capsule by mouth IN ADDITION TO TWO 40 MG CAPSULES once da... (REFER TO PRESCRIPTION NOTES). FLUoxetine (PROZAC) 40 mg capsule Take 80 mg by mouth once daily. busPIRone (BUSPAR) 15 mg tablet Take 15 mg by mouth two times a day. prazosin (MINIPRESS) 2 mg cap Take 2 mg by mouth daily at bedtime. finasteride (PROSCAR) 5 mg tablet Take 1 tablet by mouth once daily. ARIPiprazole (ABILIFY) 2 mg tablet Take 2 mg by mouth. esomeprazole magnesium (NEXIUM) 40 mg packet famotidine (PEPCID) 20 mg tablet Take 20 mg by mouth. estradiol (ESTRACE) 2 mg tablet Take by mouth. spironolactone (ALDACTONE) 50 mg tablet Take 50 mg by mouth once daily. hydrOXYzine HCl (ATARAX) 10 mg tablet Take 10 mg by mouth. albuterol HFA (PROVENTIL HFA, VENTOLIN HFA) 90 mcg/actuation inhaler Inhale 2 Puffs as instructed every 4 hours as needed for wheezing/shortness of breath. clonazePAM (KLONOPIN) 0.5 mg tablet Take 0.25 mg by mouth as needed. No family history on file. Social History Tobacco Use Smoking status: Never Passive exposure: Current Smokeless tobacco: Never Objective Physical Exam Constitutional: General: He is awake. HENT: Head: Normocephalic. Right Ear: Hearing and tympanic membrane normal. Left Ear: Hearing and tympanic membrane normal. Nose: Nose normal. Mouth/Throat: Mouth: Mucous membranes are moist. Pharynx: Oropharynx is clear. Eyes: Conjunctiva/sclera: Conjunctivae normal. Cardiovascular: Rate and Rhythm: Normal rate and regular rhythm. Pulmonary: Effort: Pulmonary effort is normal. Breath sounds: Normal breath sounds. Musculoskeletal: Lumbar back: Spasms and tenderness (tenderness of R sacroiliac joint) present. Positive right straight leg raise test. Neurological: Mental Status: He is alert. Motor: Motor function is intact. Gait: Gait abnormal. ASSESSMENT/PLAN: 1. Acute right-sided low back pain with right-sided sciatica - ICD9: 724.2, 724.3, ICD10: M54.41 Sciatica - Patient given instructions use of medications as ordered, intermittent rest, intermittent ice/heat - Follow up with primary care provider or sooner if symptoms persist or worsen - PREDNISONE 10 MG TABLET Mary Jane Neves - Follow-up with your PCP in 3-5 days if symptoms have not improved or sooner if symptoms worsen - Discussed red flags and need for immediate medical evaluation if any occur. - Discussed supportive care treatment with fluids, rest and analgesia. - Discussed expected course of illness TEACHI (more content not included)... Normal [facility] Emergency Department Summary on 07-05-2024 Emergency Department Summary [facility] Medical Records Department [address] [place] [address] Emergency Department Summary 07/05/24 MR#: [id number] Acct: [id number] Name: REUBEN SAHU Rep #: [id number] : 1975 49 From: Nash Geller MD PCP: BRENT CROCKER Status:DEP ER Location: ED HPI History of Present Illness Chief Complaint: Syncope Detail of Chief Complaint: Patient presents with syncope after coughing episode. Informant: patient Onset/Context/Timing Onset: Today and Hours Context: Sudden Onset Timing: Intermittent Quality: Patient had a hard coughing spell resulting in syncope and collapse Location: Patient states he was sitting and stood up Current Severity: Gone Maximum Severity: Moderate Worsened by: Coughing Relieved by: Not applicable Associated Symptoms Associated Symptoms: Patient has no recall Narrative Narrative: Patient is a 49-year-old male. He is transition from male to female. He had a single episode in the past. He denies headache, visual, ocular auditory symptoms. No trouble speech or swallowing. Denies paresthesia, anesthesia Medicus. He denies hematuria. He denies black or maroon-colored stool. He has been ill. He has viral-like symptoms that started several days ago. He did have diarrhea a couple of days ago. He did not notice any blood or mucus in the diarrhea. He has had no documented fever. He denies myalgias arthralgias. He does endorse mild headache. Nuys photophobia, neck pain or neck stiffness. He does have a nonproductive cough. Prior similar symptoms: Yes Recent Illness/Hospitalizatio n: No PFSH PFSH Allergy/AdvReac Type Severity Reaction Status Date / Time levofloxacin (From Levaquin) Allergy NEEDS Verified 07/05/24 10:20 FOLLOW-UP Social History (Updated 07/05/24 @ 12:[address] Nash Geller MD) Smoking Status: Never smoker substance use type: does not use ROS ROS ED Constitutional Constitutional ED: Denies chills, fever(s) or subjective Eyes Eyes: Denies blurry vision, change in vision or diplopia ENT ENT ED: Reports rhinorrhea and sore throat; Denies ear pain Cardiovascular Cardiovascular: Denies chest pain, orthopnea, palpitations or paroxysmal nocturnal dyspnea Respiratory/Chest Respiratory/Chest: Reports cough; Denies dyspnea, dyspnea on exertion, orthopnea, paroxysmal nocturnal dyspnea or sputum Gastrointestinal Gastrointestinal: Reports diarrhea; Denies abdominal pain or vomiting Genitourinary Genitourinary ED: Denies dysuria, hematuria or urinary frequency Musculoskeletal Musculoskeletal: Denies arthralgias or myalgias Integumentary Denies rash Neurologic Neurologic: Denies headache(s) Hematologic/Lymphatic Hematologic/Lymphatic: Reports systems reviewed and no addt'l complaints, except as documented EXAM Physical Exam Const Vital Signs: 07/05/24 10:21 07/05/24 10:23 07/05/24 11:58 Temperature 98.9 F 98.9 F Temperature Source Oral Oral Pulse Rate 87 87 Pulse Rate [Lying] 69 Pulse Rate [Sitting (for 1 minute prior to obtaining)] 65 Pulse Rate [Standing (for 1 minute prior to obtaining)] 75 Respiratory Rate 18 18 Blood Pressure 135/82 H 135/82 H Blood Pressure [Lying] 138/86 H Blood Pressure [Sitting (for 1 minute prior to obtaining)] 137/90 H Blood Pressure [Standing (for 1 minute prior to obtaining)] 122/92 H Blood Pressure Mean 99 99 Blood Pressure Mean [Lying] 103 Blood Pressure Mean [Sitting (for 1 minute prior to obtaining)] 105 Blood Pressure Mean [Standing (for 1 minute prior to obtaining)] 102 Pulse Ox 99 99 Oxygen Delivery Method Room Air Room Air Positive well nourished and well developed Constitutional Narrative: BMI is 34.3. General Appearance ED: well developed and NAD; Negative for pallor HEENT Reports moist mucous membranes HEENT Narrative: Head is atraumatic normocephalic. Ears normal. Nares patent. Eyes PERRL and EOMs intact bilaterally General Eye ED: Negative for pale conjunctiva or scleral icterus Neck no lymphadenopathy, supple and no JVD Neck Narrative: Trachea is midline. Resp normal respiratory effort and clear to auscultation bilaterally Cardio regular rate, regular rhythm, S1 normal heart sound, S2 normal heart sound and no murmurs GI normal to inspection, nondistended, normoactive bowel sounds, non-tender, non-distended and no masses; Negative for hepatosplenomegaly Extremity normal to inspection Neuro oriented x3 and CN's II-XII intact bilaterally Sensorium / Orientation: alert Psych mental status grossly normal Skin no rashes or lesions noted, No no wounds and skin turgor normal Skin Narrative: Abrasion right side of the forehead from rubbing his head on the floor. General Skin Exam: Negative for jaundice or pallor MDM MDM MDM Narrative Medical decision mike (more content not included)... Normal [facility] 07-04-2024 [facility] Office Visit (UCWSTR ) REUBEN SAPP ([id number]) 1975 M Date Time Provider Department 07/04/24 11:15 AM EMELY ACUNA [facility] During your visit today, we recorded the following information about you: Temperature Pulse Respiration Blood pressure 97.1 degrees 78/minute 16/minute 118/84 Weight 97.9 kg Emely Acuna APRN.CNP 07/04/2024 11:56 AM Signed Subjective The history is provided by the patient. No carbide powder processor was used. [facility] Reuben Carreno is a 49 year old male who presents today for CC of sore throat, cough, congestion, and runny nose for 4 days. He has used robitussin, tessalon perls, and albuterol with short term relief. He has a h/o of asthma. BP 118/84 Pulse 78 Temp 36.2 ?C (97.1 ?F) (Tympanic) Resp 16 Wt 97.9 kg (215 lb 13.3 oz) SpO2 99% BMI 33.92 kg/m? Social History Tobacco Use Smoking status: Never Passive exposure: Current Smokeless tobacco: Never PAST MEDICAL HISTORY Diagnosis Date Anxiety Asthma Depression GERD (gastroesophageal reflux disease) Hemochromatosis Hypertension I have confirmed and edited as necessary, the [facility] Review of Systems Constitutional: Positive for malaise/fatigue. Negative for chills and fever. HENT: Positive for congestion and sore throat. Negative for ear pain and sinus pain. Respiratory: Positive for cough and wheezing. Negative for sputum production and shortness of breath. Cardiovascular: Negative for chest pain. Gastrointestinal: Negative for abdominal pain, diarrhea, nausea and vomiting. Musculoskeletal: Positive for myalgias. Negative for joint pain. Skin: Negative for itching and rash. Neurological: Negative for headaches. All other systems reviewed and are negative. Objective Physical Exam Vitals and nursing note reviewed. Constitutional: Appearance: He is not toxic-appearing. HENT: Head: Normocephalic and atraumatic. Right Ear: Tympanic membrane, ear canal and external ear normal. Left Ear: Tympanic membrane, ear canal and external ear normal. Nose: No mucosal edema, congestion or rhinorrhea. Right Sinus: No maxillary sinus tenderness or frontal sinus tenderness. Left Sinus: No maxillary sinus tenderness or frontal sinus tenderness. Mouth/Throat: Pharynx: Uvula midline. No oropharyngeal exudate or posterior oropharyngeal erythema. Tonsils: No tonsillar abscesses. Cardiovascular: Rate and Rhythm: Normal rate and regular rhythm. Heart sounds: Normal heart sounds. Pulmonary: Effort: Pulmonary effort is normal. Breath sounds: Wheezing present. No decreased breath sounds, rhonchi or rales. Lymphadenopathy: Head: Right side of head: No submental, submandibular, tonsillar or preauricular adenopathy. Left side of head: No submental, submandibular, tonsillar or preauricular adenopathy. Cervical: No cervical adenopathy. Right cervical: No superficial cervical adenopathy. Left cervical: No superficial cervical adenopathy. Neurological: Mental Status: He is alert. ASSESSMENT/PLAN: 1. URI with cough and congestion - ICD9: 465.9, ICD10: J06.9 (primary diagnosis) - Discussed viral etiology and rationale for treatment. - Symptomatic treatment with prn analgesia - Supportive care with fluids and rest - COVID AND INFLUENZA A/B AND RSV PCR, ROUTINE 2. Flu-like symptoms - ICD9: 780.99, ICD10: R68.89 Tylenol as discussed 3. Wheezing - ICD9: 786.07, ICD10: R06.2 Prednisone 40 mg (2-20mg tablets) po QD for 5 days Continue albuterol Diagnosis and treatment plan were discussed and questions were answered to the patient's satisfaction. Pt acknowledged understanding of concepts and follow up plan. Specific signs and symptoms that would indicate the need for higher level of care were discussed in detail warranting prompt ER evaluation. LULÚ Gudino Tonya, APRN.CNP 07/04/2024 11:56 AM Signed Ryan Marley 2 every 8 hours, do not combine this with robitussin or delsym covid rsv and influenza test ordered You will be notified in 12-24 hours, results available on [facility], increase water intake Tylenol as needed for fever or pain. Salt water gargles, chloraseptic spray or lozenges as needed for sore throat. Warm beverages, honey. Nasal saline spray as needed Cool mist humidifier at night Tylenol (generic acetaminophen) 500 mg-2 tabs every 8 hrs. as needed for fever and aches -Mucinex (generic is fine) Guaifenesin 1200 mg twice daily to help with cough and to thin out mucus * Prednisone 40 mg (2 tablets) per day for 5 days, take in morning or early in day * Do not NSAIDs during this 5 day course (ibuprofen, naproxen, Motrin, Aleve, Advil) Tylenol only during prednisone use * Follow up with primary care provider if no improvement with treatment * Seek medical care immediately, call 911, go to ER if you have chest pain, difficu (more content not included)... Normal [facility] CNOVon 07-02-2024 CNOV Office Visit (UCTR ) REUBEN SAPP ([id number]) 1975 M Date Time Provider Department 07/02/24 2:00 PM HOLDEN ROGERS [facility] During your visit today, we recorded the following information about you: Temperature Pulse Respiration Blood pressure 98.2 degrees 67/minute 18/minute 128/86 Weight 98.2 kg Holden Rogers MD 07/02/2024 2:11 PM Signed Patient presents with: Cough: X3 days HPI: Coughing for 3 days. His daughter has a cough which is improving. 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 PAST MEDICAL HISTORY Diagnosis Date Anxiety Asthma Depression GERD (gastroesophageal reflux disease) Hemochromatosis Hypertension MEDICATIONS: Current Outpatient Medications Medication Sig FLUoxetine (PROZAC) 20 mg capsule take 1 capsule by mouth IN ADDITION TO TWO 40 MG CAPSULES once da... (REFER TO PRESCRIPTION NOTES). FLUoxetine (PROZAC) 40 mg capsule Take 80 mg by mouth once daily. busPIRone (BUSPAR) 15 mg tablet Take 15 mg by mouth two times a day. prazosin (MINIPRESS) 2 mg cap Take 2 mg by mouth daily at bedtime. finasteride (PROSCAR) 5 mg tablet Take 1 tablet by mouth once daily. ARIPiprazole (ABILIFY) 2 mg tablet Take 2 mg by mouth. esomeprazole magnesium (NEXIUM) 40 mg packet famotidine (PEPCID) 20 mg tablet Take 20 mg by mouth. estradiol (ESTRACE) 2 mg tablet Take by mouth. spironolactone (ALDACTONE) 50 mg tablet Take 50 mg by mouth once daily. hydrOXYzine HCl (ATARAX) 10 mg tablet Take 10 mg by mouth. albuterol HFA (PROVENTIL HFA, VENTOLIN HFA) 90 mcg/actuation inhaler Inhale 2 Puffs as instructed every 4 hours as needed for wheezing/shortness of breath. clonazePAM (KLONOPIN) 0.5 mg tablet Take 0.25 mg by mouth as needed. No current facility-administered medications for this visit. ALLERGIES: ALLERGIES Allergen Reactions Fluvoxamine Other: See Comments Hypertension Nitrofurantoin Posey* Other: See Comments Hypertension Latex, Natural Rubb* Rash Levofloxacin Mental Status Change, Other: See Comments hypertension VITALS: BP 128/86 Pulse 67 Temp 36.8 ?C (98.2 ?F) Resp 18 Wt 98.2 kg (216 lb 7.9 oz) SpO2 99% BMI 34.02 kg/m? PHYSICAL EXAM: GEN: mildly ill appearing HEENT: PERRL, EOMI, conjunctiva clear Ears: canals clear. TMs without erythema, bulge, or effusion Sinuses: non-tender frontal sinus, non-tender maxillary sinuses Throat: moist mucous membranes, mild erythema, no exudate Neck: supple, no thyromegaly, no lymphadenopathy HEART: regular rate, regular rhythm, no murmurs LUNGS: right lower lung wheezes; no crackles, no increased WOB; wipes sputum into tissues while leaning over trash can ASSESSMENT/PLAN: 1. Acute cough - ICD9: 786.2, ICD10: R05.1 - XR CHEST 2V FRONTAL/LAT - negative - suspect viral URI - Discussed supportive care treatment with rest, cold medicine, and analgesia. - BENZONATATE 100 MG CAPSULE Follow up with worsening cough, worsening shortness of breath, increasing chest pain, or late onset fever. Holden Rogers MD Allergies As of Date: 07/02/2024 Noted Allergy Reaction FLUVOXAMINE 12/07/2015 14 - Other: See Comments Comments: Hypertension NITROFURANTOIN MONOHYD/M-CRYST 08/20/2016 14 - Other: See Comments Comments: Hypertension LATEX, NATURAL RUBBER 08/13/2016 2 - Rash LEVOFLOXACIN 01/21/2014 1 - Mental Status Change 14 - Other: See Comments Comments: hypertension Date Reviewed: 07/02/2024 Reviewed by: Karla Rosas MA - Fully Assessed Reason for Visit: Cough [28] Cmt: X3 days Primary Visit Diagnosis:Acute cough [R05.1] Order(s):XR CHEST 2V FRONTAL/LAT [[id number]] Order #: [id number] FUTURE benzonatate (TESSALON PERLE) 100 mg capsuleTake 1 capsule by mouth every 8 hours as needed for cough for up to 15 days.Disp: 30 capsuleRfl: 0 Prescriptions as of 07/02/2024 - benzonatate (TESSALON PERLE) 100 mg capsule Take 1 capsule by mouth every 8 hours as needed for cough for up to 15 days. - FLUoxetine (PROZAC) 20 mg capsule take 1 capsule by mouth IN ADDITION TO TWO 40 MG CAPSULES once da... (REFER TO PRESCRIPTION NOTES). - FLUoxetine (PROZAC) 40 mg capsule Take 80 mg by mouth once daily. - busPIRone (BUSPAR) 15 mg tablet Take 15 mg by mouth two times a day. - prazosin (MINIPRESS) 2 mg cap Take 2 mg by mouth daily at bedtime. - finasteride (PROSCAR) 5 mg tablet Take 1 tablet by mouth once daily. - ARIPiprazole (ABILIFY) 2 mg tablet Take 2 mg by mouth. - esomeprazole magnesium (NEXIUM) 40 mg packet - famotidine (PEPCID) 20 mg tablet Take 20 mg by mouth. - estradiol (ESTRACE) 2 mg tablet Take by mouth. - spironolactone (ALDACTONE) 50 mg tablet Take 50 mg by mouth (more content not included)... Normal [facility] XR CHEST 2V FRONTAL/LATon XR CHEST 2V FRONTAL/LAT * * *Final Report* * * DATE OF EXAM: Jul 02 2024 1:55PM WOX [id number] - XR CHEST 2V FRONTAL/LAT / PROCEDURE REASON: Acute cough * * * * Physician Interpretation * * * * EXAMINATION: CHEST RADIOGRAPH (2 VIEW FRONTAL and LATERAL) CLINICAL HISTORY: Acute cough MQ: [id number] EXAM DATE/TIME: 07/02/2024 1:55 PM COMPARISON: 06/17/2024 RESULT: Lines, tubes, and devices: None. Lungs and pleura: No consolidation. No lung mass. No pleural effusion. No pneumothorax. Cardiomediastinal silhouette: Normal cardiomediastinal silhouette. Bones and soft tissues: Unremarkable. IMPRESSION: No acute radiographic abnormality. Basket Maker: CECE Transcribe Date/Time: Jul 02 2024 1:55P Dictated by : MAVERICK BORDEN MD This examination was interpreted and the report reviewed and electronically signed by: MAVERICK BORDEN MD on Jul 02 2024 1:55PM EST [id number] Normal [facility] XR Chest PA and Lateralon IMPRESSION: No acute radiographic abnormality. Basket Maker: CECE Transcribe Date/Time: Jul 02 2024 1:55P Dictated by : MAVERICK BORDEN MD This examination was interpreted and the report reviewed and electronically signed by: MAVERICK BORDEN MD on Jul 02 2024 1:55PM [facility] DIVISION OF RADIOLOGY * * *Final Report* * * DATE OF EXAM: Jul 02 2024 1:55PM WOX 5291 - XR CHEST 2V FRONTAL/LAT / PROCEDURE REASON: Acute cough * * * * Physician Interpretation * * * * EXAMINATION: CHEST RADIOGRAPH (2 VIEW FRONTAL & LATERAL) CLINICAL HISTORY: Acute cough MQ: XC2_6 EXAM DATE/TIME: 07/02/2024 1:55 PM COMPARISON: 06/17/2024 RESULT: Lines, tubes, and devices: None. Lungs and pleura: No consolidation. No lung mass. No pleural effusion. No pneumothorax. Cardiomediastinal silhouette: Normal cardiomediastinal silhouette. Bones and soft tissues: Unremarkable. DIVISION OF RADIOLOGY Provider, [facility] - 07/02/2024 * * *Final Report* * * DATE OF EXAM: Jul 02 2024 1:55PM WOX 5291 - XR CHEST 2V FRONTAL/LAT / PROCEDURE REASON: Acute cough * * * * Physician Interpretation * * * * EXAMINATION: CHEST RADIOGRAPH (2 VIEW FRONTAL & LATERAL) CLINICAL HISTORY: Acute cough MQ: XC2_6 EXAM DATE/TIME: 07/02/2024 1:55 PM COMPARISON: 06/17/2024 RESULT: Lines, tubes, and devices: None. Lungs and pleura: No consolidation. No lung mass. No pleural effusion. No pneumothorax. Cardiomediastinal silhouette: Normal cardiomediastinal silhouette. Bones and soft tissues: Unremarkable. IMPRESSION IMPRESSION: No acute radiographic abnormality. Basket Maker: PSCB Transcribe Date/Time: Jul 02 2024 1:55P Dictated by : MAVERICK BORDEN MD This examination was interpreted and the report reviewed and electronically signed by: MAVERICK BORDEN MD on Jul 02 2024 1:55PM [facility] Radiology Study observation (narrative) [facility] XR Chest PA and LateralOrder ed By: Cc Provider on 07-02-2024 [facility] CNOVon 06-17-2024 CNOV Office Visit (UCWSTR ) REUBEN SAPP ([id number]) 1975 M Date Time Provider Department 06/17/24 2:00 PM [facility]ES[facility] ORTIZ [facility] During your visit today, we recorded the following information about you: Temperature Pulse Respiration Blood pressure 98.2 degrees 78/minute 20/minute 148/100 Weight 95.2 kg Myesha Ortiz APRN.PUPPET MAKER 06/17/2024 2:48 PM Signed Subjective HPI HPI Reuben Carreno is a 49 year old male who presents today for CC of cough, congestion, fever. This started 5 days ago. Has tried otc medication for relief. Symptoms are worsened by nothing. Risk factors sick exposures. Hx of asthma. Nonsmoker. Seen by 2 other providers, told viral. .Patient presents with: Cough: Chest congestion, sob x 5 days No past medical history on file. No past surgical history on file. ALLERGIES Fluvoxamine; Nitrofurantoin Monohyd/M-Cryst; Latex, Natural Rubber; and Levofloxacin MEDICATIONS FLUoxetine (PROZAC) 20 mg capsule take 1 capsule by mouth IN ADDITION TO TWO 40 MG CAPSULES once da... (REFER TO PRESCRIPTION NOTES). FLUoxetine (PROZAC) 40 mg capsule Take 80 mg by mouth once daily. busPIRone (BUSPAR) 15 mg tablet Take 15 mg by mouth two times a day. prazosin (MINIPRESS) 2 mg cap Take 2 mg by mouth daily at bedtime. finasteride (PROSCAR) 5 mg tablet Take 1 tablet by mouth once daily. ARIPiprazole (ABILIFY) 2 mg tablet Take 2 mg by mouth. esomeprazole magnesium (NEXIUM) 40 mg packet famotidine (PEPCID) 20 mg tablet Take 20 mg by mouth. estradiol (ESTRACE) 2 mg tablet Take by mouth. spironolactone (ALDACTONE) 50 mg tablet Take 50 mg by mouth once daily. hydrOXYzine HCl (ATARAX) 10 mg tablet Take 10 mg by mouth. clonazePAM (KLONOPIN) 0.5 mg tablet Take 0.25 mg by mouth as needed. REXULTI 1 mg tablet Take 1 tablet by mouth once daily. vortioxetine (TRINTELLIX) 20 mg tab Take 20 mg by mouth once daily. L-Methylfolate 15 mg tab Take 1 tablet by mouth once daily. ranitidine (ZANTAC) 150 mg tablet Take 150 mg by mouth daily at bedtime. polyethylene glycol 3350 (MIRALAX) 17 gram/dose powder Take by mouth at bedtime as needed. cholecalciferol (VITAMIN D3) 5,000 unit tab Take 5,000 Units by mouth once daily. No family history on file. Social History Tobacco Use Smoking status: Never Passive exposure: Current Smokeless tobacco: Never Review of Systems Constitutional: Positive for fever. HENT: Positive for congestion. Negative for ear pain, nosebleeds and sore throat. Respiratory: Positive for cough. Negative for shortness of breath and wheezing. Musculoskeletal: Negative for neck pain. Skin: Negative for itching and rash. Objective .Blood pressure 148/100, pulse 78, temperature 36.8 ?C (98.2 ?F), resp. rate 20, weight 95.2 kg (209 lb 14.1 oz), SpO2 98%. Physical Exam Constitutional: General: He is not in acute distress. Appearance: He is not toxic-appearing or diaphoretic. HENT: Head: Normocephalic and atraumatic. Cardiovascular: Rate and Rhythm: Normal rate and regular rhythm. Heart sounds: Normal heart sounds, S1 normal and S2 normal. Pulmonary: Effort: Pulmonary effort is normal. Breath sounds: Normal breath sounds. Lymphadenopathy: Cervical: No cervical adenopathy. Right cervical: No superficial cervical adenopathy. Left cervical: No superficial cervical adenopathy. Neurological: Mental Status: He is alert and oriented to person, place, and time. Gait: Gait is intact. ASSESSMENT/PLAN: 1. URI, acute - ICD9: 465.9, ICD10: J06.9 (primary diagnosis) - Discussed viral etiology and rationale for treatment. - Symptomatic treatment with prn analgesia - Supportive care with fluids and rest - Follow up in 3-5 days if symptoms persist or sooner if worsening of symptoms - ALBUTEROL SULFATE HFA 90 MCG/ACTUATION AEROSOL INHALER 2. Acute cough - ICD9: 786.2, ICD10: R05.1 - XR CHEST 2V FRONTAL/LAT IMPRESSION: No acute radiographic abnormality. Dictated by : BRAYAN LILLY DO 3. History of asthma - ICD9: V12.69, ICD10: Z87.09 - ALBUTEROL SULFATE HFA 90 MCG/ACTUATION AEROSOL INHALER Myesha Ortiz APRN.PUPPET MAKER Allergies As of Date: 06/17/2024 Noted Allergy Reaction FLUVOXAMINE 12/07/2015 14 - Other: See Comments Comments: Hypertension NITROFURANTOIN MONOHYD/M-CRYST 08/20/2016 14 - Other: See Comments Comments: Hypertension LATEX, NATURAL RUBBER 08/13/2016 2 - Rash LEVOFLOXACIN 01/21/2014 1 - Mental Status Change 14 - Other: See Comments Comments: hypertension Date Reviewed: 06/17/2024 Reviewed by: Sandy Siddiqui MA - Fully Assessed Reason for Visit: Cough [28] Cmt: Chest congestion, sob x 5 days Primary Visit Diagnosis:URI, acute [J06.9] Other Visit Diagnoses:Acute cough [R05.1] History of asthma [Z87.09] Order(s):XR CHEST 2V FRONTAL/LAT [[id number]] Order #: [id number]. #:[id number] albuterol (more content not included)... Normal [facility] XR CHEST 2V FRONTAL/LATon XR CHEST 2V FRONTAL/LAT * * *Final Report* * * DATE OF EXAM: Jun 17 2024 2:30PM WOX 5291 - XR CHEST 2V FRONTAL/LAT / PROCEDURE REASON: Acute cough * * * * Physician Interpretation * * * * EXAMINATION: CHEST RADIOGRAPH (2 VIEW FRONTAL and LATERAL) PATIENT/TECHNOLOGIST PROVIDED HISTORY: Acute cough and SOB. CLINICAL HISTORY: 49 years old Male with Acute cough MQ: XC2_6 EXAM DATE/TIME: 06/17/2024 2:30 PM COMPARISON: No relevant prior studies available. RESULT: Lines, tubes, and devices: None. Lungs and pleura: No consolidation, pleural effusion or pneumothorax. Cardiomediastinal silhouette: Normal cardiomediastinal silhouette. Bones and soft tissues: Unremarkable. IMPRESSION: No acute radiographic abnormality. Basket Maker: CECE Transcribe Date/Time: Jun 17 2024 2:33P Dictated by : BRAYAN LILLY DO This examination was interpreted and the report reviewed and electronically signed by: BRAYAN LILLY DO on Jun 17 2024 2:34PM EST [id number] Normal [facility] XR Chest PA and Lateralon IMPRESSION: No acute radiographic abnormality. Basket Maker: PSCB Transcribe Date/Time: Jun 17 2024 2:33P Dictated by : BRAYAN LILLY DO This examination was interpreted and the report reviewed and electronically signed by: BRAYAN LILLY DO on Jun 17 2024 2:34PM EST DIVISION OF RADIOLOGY * * *Final Report* * * DATE OF EXAM: Jun 17 2024 2:30PM WOX 5291 - XR CHEST 2V FRONTAL/LAT / PROCEDURE REASON: Acute cough * * * * Physician Interpretation * * * * EXAMINATION: CHEST RADIOGRAPH (2 VIEW FRONTAL & LATERAL) PATIENT/TECHNOLOGIST PROVIDED HISTORY: Acute cough and SOB. CLINICAL HISTORY: 49 years old Male with Acute cough MQ: XC2_6 EXAM DATE/TIME: 06/17/2024 2:30 PM COMPARISON: No relevant prior studies available. RESULT: Lines, tubes, and devices: None. Lungs and pleura: No consolidation, pleural effusion or pneumothorax. Cardiomediastinal silhouette: Normal cardiomediastinal silhouette. Bones and soft tissues: Unremarkable. DIVISION OF RADIOLOGY Provider, [facility] - 06/17/2024 * * *Final Report* * * DATE OF EXAM: Jun 17 2024 2:30PM WOX 5291 - XR CHEST 2V FRONTAL/LAT / PROCEDURE REASON: Acute cough * * * * Physician Interpretation * * * * EXAMINATION: CHEST RADIOGRAPH (2 VIEW FRONTAL & LATERAL) PATIENT/TECHNOLOGIST PROVIDED HISTORY: Acute cough and SOB. CLINICAL HISTORY: 49 years old Male with Acute cough MQ: XC2_6 EXAM DATE/TIME: 06/17/2024 2:30 PM COMPARISON: No relevant prior studies available. RESULT: Lines, tubes, and devices: None. Lungs and pleura: No consolidation, pleural effusion or pneumothorax. Cardiomediastinal silhouette: Normal cardiomediastinal silhouette. Bones and soft tissues: Unremarkable. IMPRESSION IMPRESSION: No acute radiographic abnormality. Basket Maker: CECE Transcribe Date/Time: Jun 17 2024 2:33P Dictated by : BRAYAN LILLY DO This examination was interpreted and the report reviewed and electronically signed by: BRAYAN LILLY DO on Jun 17 2024 2:34PM EST [facility] Radiology Study observation (narrative) [facility] XR Chest PA and LateralOrder ed By: Ccf Provider on 06-17-2024 [facility] COVID-19, MOLECULARon 2024 SARS-CoV-2 (COVID-19) Ab IA Ql Not detected Normal Not Detected [facility] Comment on above: Result Comment: Test ing was performed using the BioVex ID NOW COVID-19 assay on the ID NOW platform. This test has not been approved for use in asymptomatic patients and its performance in this patient population has not been evaluated. Negative results do not rule out the presence of SARS-CoV-2/COVID-19. MR/BMS.BP 06-04-2024 MR/BMS.[address], [place] [address] OFFICE VISIT Date of Service: 06/04/24 MR#: [id number] Acct: [id number] Name: REUBEN SAPP Rep #: [id number] : 1975 Provider: KRISTIAN monroe Age/Sex: 49/M Location: [facility].BP Status: Signed Intake Vital Signs 05/05/24 10:32 06/04/24 07:05 Height 5 ft 7 in 5 ft 7 in BP 135/86 H Blood Pressure Location Lt brachial Position Sitting Respiration 16 Pulse 78 Pulse Source Monitor BP Intake Visit Reasons: follow up Accompanied by: Self Allergies latex Allergy (Verified 06/04/24 07:08) Rash levofloxacin (From Levaquin) Allergy (Verified 06/04/24 07:08) Shortness of breath Medications ???Medication ???Instructions ???Recorded ???Confirmed ???Type esomeprazole magnesium 40 mg 40 mg PO QAM 11/19/23 06/04/24 History capsule,delayed release famotidine 20 mg tablet 20 mg PO DAILY 11/19/23 06/04/24 History spironolactone 50 mg tablet 50 mg PO QDAY 11/19/23 06/04/24 History hydroxyzine HCl 25 mg tablet 25 mg PO QDAY #90 tabs 03/19/24 06/04/24 Rx clonazepam 0.5 mg tablet 0.5 mg PO QHS PRN anxiety #30 tabs 03/24/24 06/04/24 Rx prazosin 2 mg capsule 2 mg PO QHS #90 caps 05/05/24 06/04/24 Rx aripiprazole 2 mg tablet 2 mg PO QHS #30 tabs 06/04/24 06/04/24 Rx buspirone 15 mg tablet 15 mg PO BID #60 tabs 06/04/24 06/04/24 Rx estradiol 2 mg tablet 6 mg PO QDAY 06/04/24 06/04/24 History finasteride 5 mg tablet 5 mg PO QDAY 06/04/24 06/04/24 History fluoxetine 40 mg capsule 80 mg (2 x 40 mg) PO QDAY #180 caps 06/04/24 06/04/24 Rx PFSH Medical History Gender dysphoria Vision problems GERD (gastroesophageal reflux disease) High cholesterol Hypertension Generalized headaches Emotional problems Asthma Surgical History H/O endoscopy History of liver biopsy History of cystoscopy History of colonoscopy Family History Other Alcoholism Anxiety Arthritis Breast cancer Colon cancer Depression Diabetes Hypertension Mental disorder Psychiatric care Suicide attempt Social History household members: none Smoking Status: Never smoker alcohol intake: never substance use type: does not use HPI History of Present Illness History provided by: patient HPI: Reuben Carreno is a 49 year old male patient presenting today for a follow up evaluation. Reports they had tried to increase fluoxetine but was having increased headaches with this. Did try reducing buspirone more to see if this would provide benefit but it did not help in reducing headaches so they have been taking fluoxetine 80mg and the headaches have resolved. Does feel the buspirone has cleared their mind too much and they feel they are unable to think about things. Does feel their intrusive thoughts have increased in frequency and in severity. Does feel violent intrusive thoughts have lessened but not gone away completely. Denies any increase in depression recently. Does feel at times they are too happy. Sleep has been fine. Has been trying to get to work earlier and has been sleeping less. About 8 hours of sleep per night. Denies SI/HI. Admits to heightened anxiety. Admits to 1 mild panic attack since last appointment. Has not been eating well. Has been gaining weight recently. Previous similar episode: Yes Age of first onset of symptoms: 11-20 years Review of Systems Constitutional Reports: change in weight (loss of 5 pounds) and fatigue; Denies: fever(s) or chills Eyes Denies: change in vision or blurry vision Ears, Nose, Mouth, Throat Denies: throat pain or neck pain Cardiovascular Denies: chest pain, palpitations or dyspnea Respiratory Denies: dyspnea or wheezing Gastrointestinal Reports: heartburn, diarrhea and constipation; Denies: abdominal pain, nausea or vomiting Genitourinary Reports: urinary frequency and other; Denies: dysuria or urinary urgency Musculoskeletal Denies: back pain or neck pain Integumentary/Breast Denies: rash, pruritus or erythema Neurological Reports: headache(s) Psychiatric Reports: anxiety, irritability, memory loss and difficulty concentrating; Denies: mood swings, panic attacks, change in sleep pattern, hopelessness, loss of interest, paranoia, visual hallucinations, auditory hallucinations, suicidal ideation or homicidal ideation Endocrine Reports: fatigue Hematologic/Lymphatic Denies: easy bruising Allergic/Immunologic Denies: wheezing Exam Mental Status Exam - Psych Appearance casually dressed, adequately groomed and no apparent distress Attitude cooperative and calm Activity/Motor Behavior MS (more content not included)... Normal [facility] MR/BMS.BPon 05-05-2024 MR/BMS.BP [facility] [address], [address] [place] [address] OFFICE VISIT Date of Service: 05/05/24 MR#: [id number] Acct: [id number] Name: REUBEN SAPP Rep #: [id number] : 1975 Provider: KRISTIAN monroe Age/Sex: 49/M Location: [facility].BP Status: Signed Intake Vital Signs 03/24/24 10:20 12 10:32 Height 5 ft 7 in 5 ft 7 in BP 122/85 H Blood Pressure Location Rt brachial Position Sitting Pulse 67 Pulse Source Monitor BP Intake Visit Reasons: 6 wk FU Allergies latex Allergy (Verified 03/24/24 10:24) Rash levofloxacin (From Levaquin) Allergy (Verified 03/24/24 10:24) Shortness of breath PFSH Medical History Gender dysphoria Vision problems GERD (gastroesophageal reflux disease) High cholesterol Hypertension Generalized headaches Emotional problems Asthma Surgical History H/O endoscopy History of liver biopsy History of cystoscopy History of colonoscopy Family History Other Alcoholism Anxiety Arthritis Breast cancer Colon cancer Depression Diabetes Hypertension Mental disorder Psychiatric care Suicide attempt Social History household members: none Smoking Status: Never smoker alcohol intake: never substance use type: does not use HPI History of Present Illness History provided by: patient HPI: Reuben Carreno is a 49 year old male patient presenting today for a follow up evaluation. Has been experience heightened anxiety but feels it is all related to their gender transition. Has a lot of concern about others commenting on their transition as well as their not being happy about their transition. They are unsure if they want to do more in terms of their transition. Is [facility] where they focus on LBGTQ+ community and help during transitions. Has been having some more anxiety at work and struggling to remained focus due to this. At times has been struggling to sleep due to anxiety but will sometimes take clonazepam to help with sleep and feels this is beneficial fo them to sleep. At least 10 hours hours of sleep per night with clonazepam. Denies any feelings of depression currently but has had 1 day since last appointment that they were feeling depressed. Has been having some passive SI. Denies HI. denies plan or intent. Admits to feeling lonely and like they are not receiving support during their transition. Does not feel their 20 year old is understanding but their 18 year old does. Denies having panic attacks. Does report a decrease in intrusive thoughts and OCD symptoms with increase fluoxetine. Denies side effects from increasing dose. Has been trying to manage their weight but also reports a loss of appetite. Feels they eat to maintain energy and not to fulfill hunger. Weight fluctuates. Previous similar episode: Yes Age of first onset of symptoms: 11-20 years Review of Systems Constitutional Reports: change in weight (loss of 5 pounds) and fatigue; Denies: fever(s) or chills Eyes Denies: change in vision or blurry vision Ears, Nose, Mouth, Throat Denies: throat pain or neck pain Cardiovascular Denies: chest pain, palpitations or dyspnea Respiratory Denies: dyspnea or wheezing Gastrointestinal Reports: heartburn and diarrhea; Denies: abdominal pain, nausea, vomiting or constipation Genitourinary Reports: urinary frequency and other; Denies: dysuria or urinary urgency Musculoskeletal Denies: back pain or neck pain Integumentary/Breast Denies: rash, pruritus or erythema Neurological Reports: headache(s) Psychiatric Reports: anxiety, memory loss and difficulty concentrating; Denies: panic attacks, change in sleep pattern, hopelessness, loss of interest, paranoia, visual hallucinations, auditory hallucinations, suicidal ideation or homicidal ideation Endocrine Reports: fatigue Hematologic/Lymphatic Denies: easy bruising Allergic/Immunologic Denies: wheezing Exam Mental Status Exam - Psych Appearance casually dressed, adequately groomed and no apparent distress Attitude cooperative and calm Activity/Motor Behavior MSE activity/motor behavior finding no adventitious movements and appropriate eye contact Speech regular rate, regular volume and regular prosody Mood OK and anxious Affect flat and anxious Thought Process linear, logical and coherent Thought Content no delusions and no hallucinations Suicidal Ideation none Homicidal Ideation none Attention impaired (per patient self report) Concentration impaired (per patient self report) Sensorium/Orientation awake, alert and oriented x3 M (more content not included)... Normal [facility] DENZEL SCREENING W [facility] 04-13 DENZEL SCREENING W YESSENIA * * *Final Report* * * DATE OF EXAM: Apr 13 2024 4:21PM ELLA [id number] - DENZEL SCREENING W YESSENIA / PROCEDURE REASON: screen * * * * Physician Interpretation * * * * [facility] [address] [facility] [place] [address] #[id number] - DENZEL SCREENING W YESSENIA HISTORY: Patient is 48 years old and is seen for screening and is asymptomatic in both breasts. Patient states no personal history of breast cancer. Patient states no personal history of other cancers. COMPARISON STUDIES: This is a baseline study. MAMMOGRAM TECHNIQUE: The study was acquired using full field digital technology and interpreted from soft copy. Digital Breast Tomosynthesis (DBT) images were obtained and used to assist in the interpretation of this examination. Computer-aided detection was utilized by the radiologist in the interpretation of this examination. MAMMOGRAM FINDINGS: The breasts are heterogeneously dense, which may obscure small masses. No suspicious masses, calcifications or other abnormalities are seen in either breast. IMPRESSION: There are no suspicious mammographic findings in either breast. BI-RADS Category 1: Negative Interpreting Radiologist: Jossie Soliman M.D. Electronically signed on: 04/14/2024 Basket Maker: FELICIANO Transcribe Date/Time: Apr 13 2024 4:04P Dictated by : JOSSIE SOLIMAN MD This examination was interpreted and the report reviewed and electronically signed by: JOSSIE SOLIMAN MD on Apr 14 2024 12:32PM EST [id number] Normal [facility] MR/BMS.BPon 03-24-2024 MR/BMS.BP [address], [place] [address] OFFICE VISIT Date of Service: 03/24/24 MR#: [id number] Acct: [id number] Name: HENRY CARRENOREUBEN Rep #: [id number] : 1975 Provider: KRISTIAN monroe Age/Sex: 48/M Location: [facility].BP Status: Signed Intake Vital Signs 01/28/24 10:06 03/24/24 10:20 Height 5 ft 7 in 5 ft 7 in Weight: 205 lb BMI 32.1 BP 120/82 H 122/85 H Blood Pressure Location Rt brachial Position Sitting Respiration 16 Pulse 78 67 Pulse Source Monitor Pulse Oximetry (%) 98 BP Intake Visit Reasons: 8wfu, trouble falling alseep Accompanied by: Self Allergies latex Allergy (Verified 11/05/24 10:24) Rash levofloxacin (From Levaquin) Allergy (Verified 03/24/24 10:24) Shortness of breath Medications ???Medication ???Instructions ???Recorded ???Confirmed ???Type esomeprazole magnesium 40 mg 40 mg PO QAM 11/19/23 03/24/24 History capsule,delayed release famotidine 20 mg tablet 20 mg PO DAILY 11/19/23 03/24/24 History spironolactone 50 mg tablet 50 mg PO QDAY 11/19/23 03/24/24 History prazosin 2 mg capsule 2 mg PO QHS #90 caps 01/14/24 03/24/24 Rx fluoxetine 40 mg capsule 80 mg (2 x 40 mg) PO QDAY #180 caps 01/28/24 03/24/24 Rx buspirone 10 mg tablet 10 mg PO BID #180 tabs 02/13/24 03/24/24 Rx hydroxyzine HCl 25 mg tablet 25 mg PO QDAY #90 tabs 03/19/24 03/24/24 Rx clonazepam 0.5 mg tablet 0.5 mg PO QHS PRN anxiety #30 tabs 03/24/24 03/24/24 Rx estradiol 2 mg tablet 4 mg PO QDAY 03/24/24 03/24/24 History fluoxetine 20 mg capsule 20 mg PO QDAY #30 caps 03/24/24 03/24/24 Rx PFSH Medical History Gender dysphoria Vision problems GERD (gastroesophageal reflux disease) High cholesterol Hypertension Generalized headaches Emotional problems Asthma Surgical History H/O endoscopy History of liver biopsy History of cystoscopy History of colonoscopy Family History Other Alcoholism Anxiety Arthritis Breast cancer Colon cancer Depression Diabetes Hypertension Mental disorder Psychiatric care Suicide attempt Social History household members: none Smoking Status: Never smoker alcohol intake: never substance use type: does not use HPI History of Present Illness History provided by: patient HPI: Reuben Carreno is a 48 year old male patient presenting today for a follow up evaluation. Patient states they were in [place], [place] last week for work and was struggling to get their hydroxyzine filled for an unknown reason and was utilizing clonazepam more frequently due to difficulties sleeping. Reports anxiety has been much higher. States they have been feeling more darkness. Does admit to having one night since last appointment that they were unable to sleep. Does feel that sleep fluctuates often and some nights they will have good sleep and sometimes will struggle with sleep. States they have been having an increase in headaches as well as difficulty with concentration. States they were feeling depressed for a few days but it has passed. Since returning from their business trip they have been getting 8 hours per night. Does feel they are having increased thoughts about running people over on the side walk. Admits to a large amount of conflict with gender identity currently and is seeing a counselor for this. Does feel that since increasing estradiol dose they have been more emotional. Reports anxious thoughts have decreased since returning home from trip and has been allowing more female thoughts to come in and has even showed their sister a picture of them presenting as female and their sister responded well to this. Reports they have been trying to diet and eat healthier but often feels disgusted by food. Denies any changes in weight. Previous similar episode: Yes Age of first onset of symptoms: 11-20 years Review of Systems Constitutional Reports: change in weight (loss of 5 pounds) and fatigue; Denies: fever(s) or chills Eyes Denies: change in vision or blurry vision Ears, Nose, Mouth, Throat Denies: throat pain or neck pain Cardiovascular Denies: chest pain, palpitations or dyspnea Respiratory Denies: dyspnea or wheezing Gastrointestinal Reports: heartburn and diarrhea; Denies: abdominal pain, nausea, vomiting or constipation Genitourinary Reports: urinary frequency and other; Denies: dysuria or urinary urgency Musculoskeletal Denies: back pain or neck pain Integumentary/Breast Denies: rash, pruritus or erythema Neurological Reports: headache(s) Psychiatric Reports: anxiety, panic attacks, loss of interest, memory loss and dif (more content not included)... Normal [facility] MR/VANE.BPon 01-28-2024 MR/ [facility] [address] [place] [address], [address] [place] [address] OFFICE VISIT Date of Service: 01/28/24 MR#: [id number] Acct: [id number] Name: REUBEN SAPP Rep #: [id number] : 1975 Provider: KRISTIAN monroe Age/Sex: 48/M Location: [facility].BP Status: Signed Intake Vital Signs 12/30/23 10:48 01/28/24 10:06 Height 5 ft 7 in 5 ft 7 in Weight: 205 lb BMI 32.1 BP 127/84 H 120/82 H Blood Pressure Location Rt brachial Position Sitting Respiration 16 Pulse 77 78 Pulse Source Monitor Pulse Oximetry (%) 98 BP Intake Visit Reasons: 4wfu Accompanied by: Self Allergies latex Allergy (Verified 01/28/24 10:09) Rash levofloxacin (From Levaquin) Allergy (Verified 01/28/24 10:09) Shortness of breath Medications ???Medication ???Instructions ???Recorded ???Confirmed ???Type esomeprazole magnesium 40 mg 40 mg PO QAM 11/19/23 01/28/24 History capsule,delayed release estradiol 2 mg tablet mg PO 11/19/23 01/28/24 History famotidine 20 mg tablet 20 mg PO DAILY 11/19/23 01/28/24 History spironolactone 50 mg tablet 50 mg PO QDAY 11/19/23 01/28/24 History clonazepam 0.5 mg tablet 0.5 mg PO QHS PRN anxiety #30 tabs 12/25/23 01/28/24 Rx hydroxyzine HCl 25 mg tablet 25 mg PO QDAY #90 tabs 12/30/23 01/28/24 Rx buspirone 10 mg tablet 10 mg PO BID #180 tabs 01/14/24 01/28/24 Rx prazosin 2 mg capsule 2 mg PO QHS #90 caps 01/14/24 01/28/24 Rx fluoxetine 40 mg capsule 80 mg (2 x 40 mg) PO QDAY #180 caps 01/28/24 01/28/24 Rx PFSH Medical History Gender dysphoria Vision problems GERD (gastroesophageal reflux disease) High cholesterol Hypertension Generalized headaches Emotional problems Asthma Surgical History H/O endoscopy History of liver biopsy History of cystoscopy History of colonoscopy Family History Other Alcoholism Anxiety Arthritis Breast cancer Colon cancer Depression Diabetes Hypertension Mental disorder Psychiatric care Suicide attempt Social History household members: none Smoking Status: Never smoker alcohol intake: never substance use type: does not use HPI History of Present Illness History provided by: patient HPI: Reuben Carreno is a 48 year old male patient presenting today for a follow up evaluation. Patient has recently been feeling more anxious than before. Has been feeling chills and has been feeling what one would feel when they are falling. This sensation has happened 3 times in the last week. Does not think it is a panic attack but does feel it is heightened anxiety. Has been in therapy for gender dysphoria and feels a lot of fear due to this. Does report struggling with their relationship with their when the discussion of gender dysphoria comes up. Patient does report at one time feeling like their spouse could cause them physical harm although it has never gotten there and patient states they do feel safe. Patient reports they are sleeping well and have been getting 10 hours per night. Does feel achy when they wake up and does not feel well rested. Patient has not been eating well and has been feeling sick when they look at meat, although they are not a vegetarian. Has lost 5 pounds since beginning of November. Does feel anxious all the time. Does report their OCD thoughts have decreased about shutting machines off at work. Denies SI/HI. Previous similar episode: Yes Age of first onset of symptoms: 11-20 years Review of Systems Constitutional Reports: change in weight (loss of 5 pounds) and fatigue; Denies: fever(s) or chills Eyes Denies: change in vision or blurry vision Ears, Nose, Mouth, Throat Denies: throat pain or neck pain Cardiovascular Denies: chest pain, palpitations or dyspnea Respiratory Denies: dyspnea or wheezing Gastrointestinal Reports: heartburn and diarrhea; Denies: abdominal pain, nausea, vomiting or constipation Genitourinary Reports: urinary frequency and other; Denies: dysuria or urinary urgency Musculoskeletal Denies: back pain or neck pain Integumentary/Breast Denies: rash, pruritus or erythema Neurological Reports: headache(s) Psychiatric Reports: anxiety, panic attacks, loss of interest, memory loss and difficulty concentrating; Denies: change in sleep pattern, hopelessness, paranoia, visual hallucinations, auditory hallucinations, suicidal ideation or homicidal ideation Endocrine Reports: fatigue Hematologic/Lymphatic Denies: easy bruising Allergic/Immunologic Denies: wheezing Exam Mental Status Exam - Psych Appearance casually dressed, adequately groomed and no apparent distress Attitud (more content not included)... 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 Visit 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 Accompanied by: Self Is patient in pain?: No Allergies latex Allergy (Verified 12/30/23 10:48) Rash levofloxacin (From Levaquin) Allergy (Verified 12/30/23 10:48) Shortness of breath Medications ???Medication ???Instructions ???Recorded ???Confirmed ???Type buspirone 10 mg tablet 10 mg PO BID 11/19/23 12/30/23 History esomeprazole magnesium 40 mg 40 mg PO QAM 11/19/23 12/30/23 History capsule,delayed release estradiol 2 mg tablet mg PO 11/19/23 12/30/23 History famotidine 20 mg tablet 20 mg PO DAILY 11/19/23 12/30/23 History fluoxetine 40 mg capsule 80 mg PO QDAY 11/19/23 12/30/23 History prazosin 2 mg capsule 2 mg PO QHS 11/19/23 12/30/23 History spironolactone 50 mg tablet 50 mg PO QDAY 11/19/23 12/30/23 History clonazepam 0.5 mg tablet 0.5 mg PO QHS PRN anxiety #30 tabs 12/25/23 12/30/23 Rx hydroxyzine HCl 25 mg tablet 25 mg PO QDAY #90 tabs 12/30/23 12/30/23 Rx Nurse's Note: Presents to the office today for follow up. [facility] Medical History Gender dysphoria Vision problems GERD (gastroesophageal reflux disease) High cholesterol Hypertension Generalized headaches Emotional problems Asthma Surgical History H/O endoscopy History of liver biopsy History of cystoscopy History of colonoscopy Family History Other Alcoholism Anxiety Arthritis Breast cancer Colon cancer Depression Diabetes Hypertension Mental disorder Psychiatric care Suicide attempt Social History household members: none Smoking Status: Never smoker alcohol intake: never substance use type: does not use HPI History of Present Illness History provided by: patient HPI: Reuben Carreno is a 48 year old male patient presenting today for a follow up evaluation. Does report that anxiety has been better but that OCD thoughts are spiking. They have been having thoughts of trying to be mischievous like trying to turn off a machine a work. Has in the past had thoughts about if they had some something bad and would have to take time out of their day to confirm if they had done anything bad. Has had one panic attack since last appointment about 1.5 weeks ago. Mood has been good. Has been feeling like they have low energy. They have been sleeping about 9-10 hours. Does struggles to fall asleep at night. Does struggle still with being anxious when it comes time to resting and lying down at night. Was having a lot of pain in their legs but is unsure where this pain is coming from. Does report they have run out of hydroxyzine about 2 weeks. Patient does report that they have been having some passive SI, especially when at temple and thinking about being ready to go. Denies plan or intent. Denies HI. Patient has had a decrease in appetite. Does report that their is also struggling with mental health and hasn't been cooking or making meals as much so they have had a change in their eating habits. Previous similar episode: Yes Age of first onset of symptoms: 11-20 years Review of Systems Constitutional Reports: change in weight and fatigue; Denies: fever(s) or chills Eyes Denies: change in vision or blurry vision Ears, Nose, Mouth, Throat Denies: throat pain or neck pain Cardiovascular Denies: chest pain, palpitations or dyspnea Respiratory Denies: dyspnea or wheezing Gastrointestinal Reports: heartburn and diarrhea; Denies: abdominal pain, nausea, vomiting or constipation Genitourinary Reports: urinary frequency and other; Denies: dysuria or urinary urgency Musculoskeletal Denies: back pain or neck pain Integumentary/Breast Denies: rash, pruritus or erythema Neurological Reports: headache(s) Psychiatric Reports: anxiety, panic attacks, change in sleep pattern, hopelessness, loss of interest, memory loss and difficulty concentrating; Denies: paranoia, visual hallucinations, auditory hallucinations, suicidal ideation or homicidal ideation Endocrine Reports: fatigue Hematologic/Lymphatic Denies: easy bruising Allergic/Immunologic Denies: wheezing Exam Mental Status Exam - Psych (more content not included)... Normal [facility] MR/BMS.BPon 11-19-2023 MR/BMS.BP [facility] [address], [address] [place] [address] OFFICE VISIT Date of Service: 11/19/23 MR#: [id number] Acct: [id number] Name: REUBEN SAPP Rep #: [id number] : 1975 Provider: KRISTIAN monroe Age/Sex: 48/M Location: [facility].BP Status: Signed Intake Vital Signs 02/08/23 16:17 11/19/23 13:11 11/19/23 13:12 Height 5 ft 7 in 5 ft 7 in 5 ft 7 in Weight: 210 lb 4 oz BMI 32.9 BP 136/88 H Blood Pressure Location Rt brachial Position Sitting Pulse 71 Pulse Source Monitor BP Intake Visit Reasons: OCD/Anxiety/Depression 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 Accompanied by: Self Is patient in pain?: No Allergies latex Allergy (Verified 11/19/23 13:11) Rash levofloxacin (From Levaquin) Allergy (Verified 11/19/23 13:11) Shortness of breath Medications ???Medication ???Instructions ???Recorded ???Confirmed ???Type buspirone 10 mg tablet 10 mg PO BID 11/19/23 11/19/23 History clonazepam 0.5 mg tablet 0.5 mg PO QHS PRN anxiety 11/19/23 11/19/23 History esomeprazole magnesium 40 mg 40 mg PO QAM 11/19/23 11/19/23 History capsule,delayed release estradiol 2 mg tablet mg PO 11/19/23 11/19/23 History famotidine 20 mg tablet 20 mg PO DAILY 11/19/23 11/19/23 History fluoxetine 40 mg capsule 80 mg PO QDAY 11/19/23 11/19/23 History hydroxyzine HCl 25 mg tablet 25 mg PO QDAY 11/19/23 11/19/23 History prazosin 2 mg capsule 2 mg PO QHS 11/19/23 11/19/23 History spironolactone 50 mg tablet 50 mg PO QDAY 11/19/23 11/19/23 History Current gender identity: male Nurse's Note: Presents to the office today to establish new patient care. [facility] Medical History Gender dysphoria Vision problems GERD (gastroesophageal reflux disease) High cholesterol Hypertension Generalized headaches Emotional problems Asthma Surgical History H/O endoscopy History of liver biopsy History of cystoscopy History of colonoscopy Family History Other Alcoholism Anxiety Arthritis Breast cancer Colon cancer Depression Diabetes Hypertension Mental disorder Psychiatric care Suicide attempt Social History household members: none Smoking Status: Never smoker alcohol intake: never substance use type: does not use HPI History of Present Illness History provided by: patient Chief complaint: anxiety HPI: Reuben Carreno is a 48 year old male patient presenting today for an intake evaluation. Was seeing a provider in [place], [place] but is looking for someone local. Patient struggles with feelings of gender dysphoria. While discussing this with the patient and discussing pronouns they state that they were previously going by she/her but out in public go by he/him. Sleep: Reports they are oversleeping. Is getting about 10 hours per night. Denies daytime napping. Is late to work every day. Is supposed to be there at 7 but gets there at 1030. Interest: Struggles with feeling low at times but wants to just push to feel better. Feels they are able to find niru in things but it is rare. They would cross-dress and it brought the, a lot of niru. Energy: Feels their sleep is so-so and doesn't always feel well rested. Feels they has just enough energy to get work done at work and crashes when they gets home. This is disrupting to their family life. Guilt: Reports some feelings of worthlessness and feeling like they are not good enough for their family. Tries to be optimistic and have khalif. Denies feelings of hopelessness. Reports some feelings of guilt around wanting to be a female. Concentration: Reports an issue with focus, concentration, and attention. Feels work is very stressful and they push themselves too far. Feels these issues do not affect their ability to work but has had issues with this in the past and wasn't functioning for about 3 years and during that time they were not working. Appetite: Reports appetite to be fine. Reports struggling to lose weight. Psychomotor: WNL Suicide: Denies current SI/HI. A few months ago was having these more frequently and was having dangerous intrusive thinking while driving. Memory: Reports they are struggling with memory issues. 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 Feels they are forgetful. Anxiety: Reports anxiety to be daily. Was having a lot of panic attacks in the past where they thought they were going to . Will hyperventilate sometimes at work but has been more manageable more recently. Reports only taking buspirone for the last 2 weeks. Obsessions: Has had intrusive thoughts about injuring self wh (more content not included)... Normal [facility] Absolute lymphocyte countOrd ered By: Nash Geller on 02-08-2023 Lymphocytes Auto (Unsp spec) [#/Vol] 2.33 10*3/uL 0.83-4.51 [facility] Basophil percentageOrdered B y: Nash Escobaro on 02-08-2023 Basophils/100 WBC (Bld) 1.5 % 0-1 [facility] Bilirubin [Mass/Vol] 0.20 mg/dL 0.20-1.00 [facility] Comment on above: For patients on eltr ombopag therapy, use of Dimension [place] TBIL is not recommended. Chloride [Moles/Vol] 107 mmol/L 98-107 [facility] Eosinophils/100 WBC (Bld) 4.0 % 0-5 [facility] Glucose [Mass/Vol] 105 mg/dL 74-106 [facility] Comment on above: Fasting Glucose resu lt from 100 to 125 mg/dL suggests IMPAIRED HOMEOSTASIS per A.D.A. criteria. Neutrophils (Bld) [#/Vol] 4.5 10*3/uL 2.0-7.7 [facility] Neutrophils/100 WBC (Bld) 55.7 % 47-70 [facility] Potassium [Moles/Vol] 3.7 mmol/L 3.5-5.1 [facility] Protein [Mass/Vol] 7.2 g/dL 6.4-8.2 [facility] Sodium [Moles/Vol] 135 mmol/L 136-145 [facility] WBC (Bld) [#/Vol] 8.0 10*3/uL 4.4-11.0 [facility] Blood erythrocytes count (nu mber/volume)Ordered By: Nash Geller on 02-08-2023 RBC (Bld) [#/Vol] 4.55 10*6/uL 4.6-6.2 [facility] Blood hemoglobin measurement (mass/volume)Ordered By: Nash Geller on 02-08-2023 Hemoglobin (Bld) [Mass/Vol] 14.0 g/dL 13.0-16.5 [facility] Blood lymphocytes/100 leukoc ytesOrdered By: Nash Geller on 02-08-2023 Lymphocytes/100 WBC (Bld) 29.1 % 19-41 [facility] Blood monocytes/100 leukocyt esOrdered By: Nash Geller on 02-08-2023 Monocytes/100 WBC (Bld) 9.2 % 0-10 [facility] Blood platelet mean volumeOr dered By: Nash Geller on 09-22-2023 Platelet mean volume (Bld) [Entitic vol] 9.0 fL 6.2-12.0 [facility] Determination of erythrocyte mean corpuscular volume (MCV)Ordered By: Nash Geller on 02-08-2023 MCV (RBC) [Entitic vol] 92.1 fL 80-94 [facility] Glucose Glucometer (BldC) [M ass/Vol]Ordered By: Nashelizabeth Geller on 02-08-2023 Glucose [Mass/Vol] 118 mg/dL 74-106 [facility] Comment on above: MANAGEMENT OF PATIEN T CARE PER NURSING PROTOCOL Hematocrit Auto (Bld) [Volum e fraction]Ordered By: Nashelizabeth Geller on 02-08-2023 Hematocrit (Bld) [Volume fraction] 41.9 % 40-54 [facility] Laboratory - Chemistry and C hemistry - challengeOrdered By: Nashelizabeth Geller on 02-08-2023 ALP [Catalytic activity/Vol] 97 U/L 45-117 [facility] ALT [Catalytic activity/Vol] 34 U/L 16-61 [facility] CO2 [Moles/Vol] 23.0 mmol/L 21.0-32.0 [facility] Globulin (S) [Mass/Vol] 3.5 g/dL 2.2-4.2 [facility] Urea nitrogen/Creatinine [Mass ratio] 17.0 mg/mg 10-20 [facility] Laboratory - Hematology and Cell countsOrdered By: Nashelizabeth Geller on 02-08-2023 Erythrocyte distribution width (RBC) [Entitic vol] 46.0 fL 35.1-43.9 [facility] Erythrocyte distribution width (RBC) [Ratio] 13.4 % 11.6-14.6 [facility] Immature granulocytes/100 WBC (Bld) 0.500 % 0.0-0.9 [facility] Comment on above: IG% - Immature Granu locytes (promyelocytes, myelocytes and metamyelocytes) > 1% indicates that a LEFT SHIFT is Present. MCH (RBC) [Entitic mass] 30.8 pg 27.0-32.0 [facility] Nucleated RBC/100 WBC (Bld) [Ratio] 0 % 0-5 [facility] MCHC Auto (RBC) [Mass/Vol]Or dered By: Nash Geller on 02-08-2023 MCHC (RBC) [Mass/Vol] 33.4 g/dL 32-36 [facility] No Panel InformationOrdered By: Nash Geller on 02-08-2023 Estimated Creatinine Clearance Calc 78.81 ml/min [facility] Estimated GFR (MDRD) Amer 95 mL/min >60 [facility] Comment on above: GFR Calc Estimated GFR (MDRD) Non-Af Amer 79 mL/min >60 [facility] Comment on above: Non- GFR Calc Platelets bldOrdered By: Nash Geller on 02-08-2023 Platelets (Bld) [#/Vol] 311 10*3/uL 150-450 [facility] Serum or plasma albumin latasha urement (mass/volume)Ordered By: Nash Geller on 02-08-2023 Albumin [Mass/Vol] 3.7 g/dL 3.2-5.0 [facility] Serum or plasma albumin/glob ulin mass ratioOrdered By: Nash Geller on 02-08-2023 Albumin/Globulin [Mass ratio] 1.1 {ratio} 0.9-2.4 [facility] Serum or plasma calcium latasha urement (mass/volume)Ordered By: Nash Geller on 02-08-2023 Calcium [Mass/Vol] 8.9 mg/dL 8.5-10.1 [facility] Serum or plasma creatinine m easurement (mass/volume)Ordered By: Nash Geller on 02-08-2023 Creatinine [Mass/Vol] 1.06 mg/dL 0.70-1.30 [facility] Comment on above: The validity of the calculated GFR & GFRAA in patients over 70 years has not been determined. Clinical correlation is essential. Serum or plasma urea nitroge n measurement (mass/volume)Ordered By: Nash Geller on 02-08-2023 Urea nitrogen [Mass/Vol] 18 mg/dL 7-18 [facility] Thin prep Papanicolaou smear with manual screeningOrdered By: Nash Geller on 02-08-2023 Thin prep Papanicolaou smear with manual screening 14 U/L 15-37 [facility] Thin prep Papanicolaou smear with manual screening 5 5-15 [facility] [id number] [place] [address] XRay Report Signed Patient Name: Reuben Paz Re cord #: [id number] Date of : 1975 Account #:[id number] Age/Sex: 47 / M Location: [facility] Attending physician: Susie Rinaldi CNP Ordering Provider: Susie Rinaldi CNP Date of Service: 05/01/22 Procedure(s): XR finger LT min 2V HISTORY: Injury of left. Thumb. Study: Left fingers AP, lateral and oblique views dated 2022. 10:34 a.m. Findings: There is a lucency along the ulnar aspect of the base of the distal phalanx of the thumb which could represent a tiny chip fracture. No other fracture, dislocation or foreign body or significant bony degenerative change. IMPRESSION: Possible tiny chip fracture at the base of the distal phalanx of the thumb. Correlation with the site of the patient's pain is recommended. Dictated By: Pankaj Sandhu MD Signed By: 05/01/22 1142 DD/ 1139 TD/TT: 05/01/22 1139 Basket Maker: MICHAEL Exam/Order Verified? Y Exam Explained to Patient/Family? Y Was Patient Shielded? N Is Patient ? Consent Form Completed? Hx Last Menstrual Period: Does Patient have a Diabetic Device? No Diabetic Device Type: Was the Diabetic Device Removed? If NO: was Removal Consent form completed? Verified by Technologist:[id number] Comment: [phone] cc: Susie Rinaldi CNP PCP,No Normal [facility] US ABDOMEN RENALon US ABDOMEN RENAL Patient Name: REUBEN CARRENO Patient Patient : 1975 Examination: US ABDOMEN RENAL Date of Exam: 08/09/2020 11:50 AM Ordering Provider: ESTUARDO ALMEIDA MD Comparison: CT abdomen pelvis dated 07/31/2019 Relevant Clinical Information: Increased frequency of urination TECHNIQUE: Retroperitoneal barber scale sonographic imaging of the kidneys. DISCUSSION RIGHT KIDNEY: Right Kidney Size: 10.5 x 5.6 x 5.5 cm. Morphology: Unremarkable. Solid/cystic lesions: None. Collecting system: No hydronephrosis. LEFT KIDNEY: Left Kidney Size: 11.1 x 5.6 x 4.8 cm. Morphology: Unremarkable Solid/cystic lesions: None. Collecting system: No hydronephrosis. BLADDER: No evidence of wall thickening. No mass. Prior to voiding the bladder measured 7.6 x 3.7 x 5.8 cm corresponding with a prevoid bladder volume of approximately 86 mL. Following voiding the bladder measured 1.8 x 2.3 x 4.1 cm. This corresponds with a post void residual volume of approximately 9 mL. IMPRESSION: 1. No hydronephrosis or focal renal lesion 2. Small post void residual bladder volume of approximately 9 mm. Professional Interpretation by Radiology Electronically Signed By: Evan Knutson MD On: 08/09/2020 4:23 PM [facility] Covid-19 Priorityon 08-06-19 21 Inpatient Comment [facility] Comment on above: Order Comment: Testi ng performed at: [CB] [facility], [address] [place] [address], [phone], , Fan Blade Aligner: Ryan Resendez, PhD Testing performed at: [[facility]] [facility], [employer] [facility], [place], [address], , Fan Blade Aligner: Guru Valle MD Reported Source: NASAL SWAB Reported Clinical Info Relevant to Order: SRC:NASAL SWAB [place] Order: [id number] Result Comment: Rece ived Novel Coronavirus (Covid-19) , NAAon 08-05-2020 SARS-CoV-2, JOSH Not Detected Normal Not Detected [facility] Comment on above: Order Comment: Testi ng performed at: [[facility]] [facility], [address], [place], [address], , Fan Blade Aligner: Ryan Resendez, PhD Testing performed at: [COC[facility]] [facility], [place], [address], , Fan Blade Aligner: Guru Valle MD Reported Source: NASAL SWAB Reported Clinical Info Relevant to Order: SRC:NASAL SWAB [place] Order: [id number] Result Comment: This nucleic acid amplification test was developed and its performance characteristics determined by [employer]. Nucleic acid amplification tests include RT- PCR and TMA. This test has not been FDA cleared or approved. This test has been authorized by FDA under an Emergency Use Authorization (EUA). This test is only authorized for the duration of time the declaration that circumstances exist justifying the authorization of the emergency use of in vitro diagnostic tests for detection of SARS-CoV-2 virus and/or diagnosis of COVID-19 infection under section 564(b)(1) of the Act, 21 U.S.C. 360bbb-3(b) (1), unless the authorization is terminated or revoked sooner. When diagnostic testing is negative, the possibility of a false negative result should be considered in the context of a patient's recent exposures and the presence of clinical signs and symptoms consistent with COVID-19. An individual without symptoms of COVID-19 and who is not shedding SARS-CoV-2 virus would expect to have a negative (not detected) result in this assay. Tissue for Histologyon 03-31 Tissue for Histology AP results FINAL SURGICAL PATHOLOGY REPORT 1. NETTIE: [id number] Testing performed at [facility], [address] [place] [address] Host Order: [id number] DIAGNOSIS: 1. COLON, TWO POLYPS DESCENDING, BIOPSY: -TUBULAR ADENOMA 2. COLON, SIGMOID POLYP, BIOPSY: -COLONIC MUCOSA WITH NO SIGNIFICANT ABNORMALITIES PROCEDURE: Colonoscopy with Polypectomy using Hot Snare and Cold Biopsy Forceps PREOPERATIVE DIAGNOSIS: Colon Cancer Screening POSTOPERATIVE DIAGNOSIS: Colon Polyps MICROSCOPIC EXAMINATION: 1. A microscopic examination was performed. 2. A microscopic examination was performed. SPECIMEN: 1. Two Polyps in Descending Colon 2. Sigmoid Colon Polyp GROSS EXAMINATION: 1. The specimen is received in formalin, in a container labeled Reuben Carreno, 1975, #1-two polyps in descending colon. The specimen is retrieved from an included filter device. The specimen consists of two mcneil fragments ranging in size from 0.3 to 0.6 centimeters. The specimen is submitted in a single cassette. 2. The specimen is received in formalin, in a container labeled Reuben Carreno, 1975, #2-sigmoid colon polyp. The specimen consists of four mcneil fragments ranging in size from 0.2 to 0.3 centimeters. The specimen is submitted in a single cassette. Electronically Signed by HUNTER Tate MD 04/05/2020 16:32 Billing Codes: 1. [id number] (x2), [id number] (x2) [facility] Comment on above: Order Comment: NETTIE: [id number] Testing performed at [facility], [address] [place] [address] Host Order: [id number] Novel Coronavirus (Covid-19) , NAAon 03-25-2020 SARS-CoV-2, JOSH Not Detected Normal Not Detected [facility] Comment on above: Order Comment: Testi ng performed at: [TG] [employer] [facility] [facility], [address] [place] [address], [phone], , Fan Blade Aligner: Vanita Pope Reported Source: NASAL SWAB Reported Clinical Info Relevant to Order: SRC:NASAL SWAB [place] Order: [id number] Result Comment: This nucleic acid amplification test was developed and its performance characteristics determined by [employer]. Nucleic acid amplification tests include PCR and TMA. This test has not been FDA cleared or approved. This test has been authorized by FDA under an Emergency Use Authorization (EUA). This test is only authorized for the duration of time the declaration that circumstances exist justifying the authorization of the emergency use of in vitro diagnostic tests for detection of SARS-CoV-2 virus and/or diagnosis of COVID-19 infection under section 564(b)(1) of the Act, 21 U.S.C. 360bbb-3(b) (1), unless the authorization is terminated or revoked sooner. When diagnostic testing is negative, the possibility of a false negative result should be considered in the context of a patient's recent exposures and the presence of clinical signs and symptoms consistent with COVID-19. An individual without symptoms of COVID-19 and who is not shedding SARS-CoV-2 virus would expect to have a negative (not detected) result in this assay. CHEST PA AP LAT 2 VIEWSon CHEST PA AP LAT 2 VIEWS Patient Name: REUBEN CARRENO Patient Patient : 1975 Examination: CHEST PA AP LAT 2 VIEWS Date of Exam: 03/21/2020 8:49 AM Ordering Provider: TEODORA JULIEN MD Comparison: Prior examinations from November 07, 2016 and August 12, 2016 Relevant Clinical Information: Bronchitis NUMBER OF VIEWS: 2 DISCUSSION: Lungs / pleura: The lungs are normally expanded. There is no focal consolidation or pleural effusion. No pneumothorax. Heart / mediastinum: The heart size is within normal limits. The pulmonary vasculature is unremarkable. Cardiomediastinal silhouette is unremarkable. Bones: No acute osseous findings. IMPRESSION: No active disease. Professional Interpretation by Radiology Electronically Signed By: Edward Canchola MD On: 03/21/2020 10:26 AM Normal [facility] Hemoglobin A1Con 01-13-2020 HbA1c (Bld) [Mass fraction] 103 mg/dL Normal [facility] Comment on above: Order Comment: Testi ng performed at [facility], [address] [place] [address] [place] Order: [id number] HbA1c (Bld) [Mass fraction] 5.2 % Normal 4.0-6.0 [facility] Comment on above: Order Comment: Testi ng performed at [facility], [address] [place] [address] [place] Order: [id number] Result Comment: The [place] [employer] recommends that the goal of therapy should be a Hemoglobin A1C of <7% and that the physician should recommend the treatment regimen in patients with values consistently >8%. Lipid Profileon 01-13-2020 Cholesterol [Mass/Vol] 224 mg/dL High 0-200 [facility] Comment on above: Order Comment: Testi ng performed at [facility], [address] [place] [address] [place] Order: [id number] Result Comment: Refe rence ranges recommended by the National Cholesterol Education Program <200 Desirable 200-239 Borderline High >240 High Cholesterol in HDL [Mass/Vol] 54 mg/dL Normal [facility] Comment on above: Order Comment: Testi ng performed at [facility], [address] [place] [address] [place] Order: [id number] Result Comment: <40 Major risk factor in CHD for males <50 Major risk factor in CHD for females >60 Negative risk factor for males and females Cholesterol in LDL [Mass/Vol] 130 mg/dL Normal [facility] Comment on above: Order Comment: Testi ng performed at [facility], [address] [place] [address] [place] Order: [id number] Result Comment: <100 Optimal 100-129 Near optimal/above optimal 130-159 Borderline High 160-189 High >190 Very high LDL-C values may be decreased when the Triglycerides are >200. Cholesterol.total/Chol esterol in HDL [Mass ratio] 4.1 {ratio} Normal 3.9-4.7 [facility] Comment on above: Order Comment: Testi ng performed at [facility], [address] [place] [address] [place] Order: [id number] Result Comment: Ifrah nary Heart Disease Risk: Male Female Risk 3.4 3.3 0.5 x Average 5.0 4.4 1.0 x Average 9.6 7.1 2.0 x Average 13.5 11.0 3.0 x Average Hours Fasting? patient not fasting per doctors orders Normal [facility] Comment on above: Order Comment: Testi ng performed at [facility], [address] [place] [address] [place] Order: [id number] Triglyceride [Mass/Vol] 200 mg/dL High 0-150 [facility] Comment on above: Order Comment: Testi ng performed at [facility], [address] [place], [place] [id number] [place] Order: [id number] Result Comment: Refe rence ranges recommended by the National Cholesterol Education Program. <150 Normal <200 Normal in a Non-fasting specimen* 150-199 Borderline High 200-499 High >=500 Very High *Triglyceride values >200 in a non-fasting specimen, recommend repeat testing after an 8-12 hour fast. VLDL, Calculated 40 mg/dL High 7-32 [facility] Comment on above: Order Comment: Testi ng performed at [facility], [address] [place] [address] [place] Order: [id number] Vital Signs Date Time Vital Sign Value Performing Clinician Facility 10-16-2024 10:37-0400 Body height 167.6 cm Opal Kenny APRN, CNP Work Phone: [facility] Work Phone: 10-16-2024 10:37-0400 Body temperature 97.5 [degF] Opal Kenny APRN, CNP Work Phone: [facility] Work Phone: 10-16-2024 10:37-0400 Body weight 96.8 kg Opal Kenny APRN, CNP Work Phone: [facility] Work Phone: 10-16-2024 10:37-0400 Diastolic blood pressure 88 mm[Hg] Opal Kenny APRN, CNP Work Phone: [facility] Work Phone: 10-16-2024 10:37-0400 Heart rate 71 /min Opal Kenny APRN, CNP Work Phone: [facility] Work Phone: 10-16-2024 10:37-0400 Respiratory rate 16 /min Opal Kenny APRN, CNP Work Phone: [facility] Work Phone: 10-16-2024 10:37-0400 SaO2% (BldA) [Mass fraction] 97 % Opal Kenny APRN, CNP Work Phone: [facility] Work Phone: 10-16-2024 10:37-0400 Systolic blood pressure 122 mm[Hg] Opal Kenny APRN, CNP Work Phone: [facility] Work Phone: 07-09-2024 16:12-0500 Body mass index (BMI) [Ratio] 33.78 kg/m2 Minerva Praisler-Wood FINANCIAL ANALYST.PUPPET MAKER Work Phone: [facility] 07-09-2024 16:12-0500 Body temperature 97.59 [degF] Minerva Praisler-Wood FINANCIAL ANALYST.PUPPET MAKER Work Phone: [facility] 07-09-2024 16:12-0500 Body weight 97.5 kg Minerva Praisler-Wood FINANCIAL ANALYST.PUPPET MAKER Work Phone: [facility] 07-09-2024 16:12-0500 Diastolic blood pressure 85 mm[Hg] Minevra Praisler-Wood FINANCIAL ANALYST.PUPPET MAKER Work Phone: [facility] 07-09-2024 16:12-0500 Heart rate 67 /min Minerva Praisler-Wood FINANCIAL ANALYST.PUPPET MAKER Work Phone: [facility] 07-09-2024 16:12-0500 Respiratory rate 18 /min Minerva Praisler-Wood FINANCIAL ANALYST.PUPPET MAKER Work Phone: [facility] 07-09-2024 16:12-0500 SaO2% (BldA) [Mass fraction] 100 % Minerva Praisler-Wood FINANCIAL ANALYST.PUPPET MAKER Work Phone: [facility] 07-09-2024 16:12-0500 Systolic blood pressure 133 mm[Hg] Minerva Praisler-Wood FINANCIAL ANALYST.PUPPET MAKER Work Phone: [facility] 07-04-2024 11:28-0500 Body mass index (BMI) [Ratio] 33.92 kg/m2 Emely Armand FINANCIAL ANALYST.PUPPET MAKER Work Phone: [facility] 07-04-2024 11:28-0500 Body temperature 97.11 [degF] Emely Armand FINANCIAL ANALYST.PUPPET MAKER Work Phone: [facility] 07-04-2024 11:28-0500 Body weight 97.9 kg Emely Armand FINANCIAL ANALYST.PUPPET MAKER Work Phone: [facility] 07-04-2024 11:28-0500 Diastolic blood pressure 84 mm[Hg] Emely Armand FINANCIAL ANALYST.PUPPET MAKER Work Phone: [facility] 07-04-2024 11:28-0500 Heart rate 78 /min Emely Armand FINANCIAL ANALYST.PUPPET MAKER Work Phone: [facility] 07-04-2024 11:28-0500 Respiratory rate 16 /min Emely Armand FINANCIAL ANALYST.PUPPET MAKER Work Phone: [facility] 07-04-2024 11:28-0500 SaO2% (BldA) [Mass fraction] 99 % Emely Armand FINANCIAL ANALYST.PUPPET MAKER Work Phone: [facility] 07-04-2024 11:28-0500 Systolic blood pressure 118 mm[Hg] Emely Armand FINANCIAL ANALYST.PUPPET MAKER Work Phone: [facility] 07-02-2024 13:24-0500 Body mass index (BMI) [Ratio] 34.02 kg/m2 Holden Rogers MD Work Phone: [facility] 07-02-2024 13:24-0500 Body temperature 98.2 [degF] Holden Rogers MD Work Phone: [facility] 07-02-2024 13:24-0500 Body weight 98.2 kg Holden Rogers MD Work Phone: [facility] 07-02-2024 13:24-0500 Diastolic blood pressure 86 mm[Hg] Holden Rogers MD Work Phone: [facility] 07-02-2024 13:24-0500 Heart rate 67 /min Holden Rogers MD Work Phone: [facility] 07-02-2024 13:24-0500 Respiratory rate 18 /min Holden Rogers MD Work Phone: [facility] 07-02-2024 13:24-0500 SaO2% (BldA) [Mass fraction] 99 % Holden Rogers MD Work Phone: [facility] 07-02-2024 13:24-0500 Systolic blood pressure 128 mm[Hg] Holden Rogers MD Work Phone: [facility] 06-17-2024 14:11-0500 Body mass index (BMI) [Ratio] 32.98 kg/m2 Myesha Ortiz FINANCIAL ANALYST.PUPPET MAKER Work Phone: [facility] 06-17-2024 [id number] Body temperature 98.2 [degF] Myesha Ortiz FINANCIAL ANALYST.PUPPET MAKER Work Phone: [facility] 06-17-2024 [id number]:110500 Body weight 95.2 kg Myesha Ortiz FINANCIAL ANALYST.PUPPET MAKER Work Phone: [facility] 06-17-2024 14:11-0500 Diastolic blood pressure 100 mm[Hg] Myesha Ortiz FINANCIAL ANALYST.PUPPET MAKER Work Phone: [facility] 06-17-2024 14:11-0500 Heart rate 78 /min Myesha Ortiz FINANCIAL ANALYST.PUPPET MAKER Work Phone: [facility] 06-17-2024 14:11-0500 Respiratory rate 20 /min Myesha Ortiz FINANCIAL ANALYST.PUPPET MAKER Work Phone: [facility] 06-17-2024 14:11-0500 SaO2% (BldA) [Mass fraction] 98 % Myesha Ortiz FINANCIAL ANALYST.PUPPET MAKER Work Phone: [facility] 06-17-2024 14:11-0500 Systolic blood pressure 148 mm[Hg] Myesha Ortiz FINANCIAL ANALYST.PUPPET MAKER Work Phone: [facility] 02-08-2023 16:17-0400 Body height 170.18 cm [facility] 02-08-2023 16:17-0400 Body mass index (BMI) [Ratio] 31.7 kg/m2 [facility] 02-08-2023 16:17-0400 Body weight 91.85 kg [facility] 02-08-2023 15:45-0400 Body temperature 96.5 [degF] [facility] 02-08-2023 15:45-0400 Diastolic blood pressure 96 mm[Hg] [facility] 02-08-2023 15:45-0400 Heart rate 77 /min [facility] 02-08-2023 15:45-0400 Respiratory rate 18 /min [facility] 02-08-2023 15:45-0400 SaO2% (BldA) [Mass fraction] 99 % [facility] 02-08-2023 15:45-0400 Systolic blood pressure 139 mm[Hg] [facility] Encounters Encounter Date Encounter Type Care Provider Facility [facility] Start: 11-05-2024 Encounter for genera l adult medical examination without abnormal findings [facility] Start: 11-04-2024 End: 11-04-2024 ambulatory Aspen [place] Facility[facility] Start: 10-30-2024 End: 10-30-2024 ambulatory [facility] Facility[facility] Start: 10-30-2024 End: 10-30-2024 ambulatory [facility] Facility:[facility] Start: 10-16-2024 End: 10-16-2024 Office outpatient visit 25 minutes Opal Kenny APRN, CNP Work Phone: [facility] Comment on above: Gender dysphoria (Pr imary Dx); Hair thinning Start: 10-13-2024 End: 10-13-2024 ambulatory BRENT SARAH [facility] Start: 09-10-2024 End: 09-10-2024 ambulatory [facility] [place] Facility:[facility] Start: 08-26-2024 End: 08-26-2024 ambulatory BRENT SMITH [facility] Start: 07-16-2024 End: 07-16-2024 ambulatory SUZY BLUNT Facility:[facility] Start: 07-10-2024 End: 07-10-2024 ambulatory BRENT SMITH [facility] Start: 07-09-2024 End: 07-09-2024 ambulatory BRENT CROCKER Facility:[facility] Start: 07-09-2024 End: 07-09-2024 Office outpatient visit 15 minutes Minerva Easton APRN.PUPPET MAKER Work Phone: [facility] Comment on above: Acute right-sided lo w back pain with right-sided sciatica (Primary Dx) Start: 07-06-2024 End: 07-06-2024 ambulatory BRENT CROCKER [facility] Start: 07-05-2024 End: 07-05-2024 ambulatory Yuko Ross RN NURSE CURING [employer]PER[employer] Comment on above: Syncope Start: 07-05-2024 End: 07-05-2024 Emergency department patient visit Nashelizabeth Geller Facility:[facility] Start: 07-04-2024 End: 07-04-2024 ambulatory ANNE Adams [place] Facility:[facility] Start: 07-04-2024 End: 07-04-2024 Patient encounter procedure Emely Armand PARRISH.PUPPET MAKER Work Phone: [facility] Comment on above: URI with cough and c ongestion (Primary Dx); Flu-like symptoms; Wheezing Start: 07-02-2024 End: 07-02-2024 Office outpatient visit 25 minutes Holden Rogers MD Work Phone: [facility] Comment on above: Acute cough (Primary Dx) Start: 07-02-2024 End: 07-02-2024 ambulatory BREEZYANNE Adams [place]TE Facility:[facility] Start: 07-02-2024 End: 07-02-2024 Subsequent hospital visit by physician [facility] Work Phone: Radiology Comment on above: Acute cough [R05.1] Start: 06-17-2024 End: 06-17-2024 Subsequent hospital visit by physician [facility] Work Phone: Radiology Comment on above: Acute cough [R05.1] Start: 06-17-2024 End: 06-17-2024 ambulatory MYESHA ORTIZ Facility:[facility] Start: 06-17-2024 End: 06-17-2024 Patient encounter procedure Myesha Ortiz APRN.PUPPET MAKER Work Phone: [facility] Comment on above: URI, acute (Primary Dx); Acute cough; History of asthma Start: 06-15-2024 End: 06-15-2024 ambulatory TIANNA SALCIDO [facility] Start: 06-04-2024 End: 06-04-2024 ambulatory Aspen [place] Facility:[facility] Start: 05-05-2024 End: 05-05-2024 ambulatory No Primary Care Physician Facility:[facility] Start: 04-13-2024 ambulatory OPAL RODRIGUEZ F acility:[facility] Start: 04-13-2024 End: 04-13-2024 Subsequent hospital visit by physician Screen [facility] Comment on above: z12.31 Start: 03-24-2024 End: 03-24-2024 ambulatory No Primary Care Physician Facility:[facility] Start: 01-28-2024 End: 01-28-2024 ambulatory No Primary Care Physician Facility:[facility] Start: 12-30-2023 End: 12-30-2023 ambulatory No Primary Care Physician Facility:[facility] Start: 12-11-2023 End: 12-11-2023 ambulatory BRENT CROCKER [facility] Start: 11-19-2023 End: 11-19-2023 ambulatory Aspen [place] Facility:[facility] Start: 08-23-2023 End: 08-23-2023 Office outpatient visit 25 minutes Opal Kenny APRN, CNP Work Phone: [facility] Comment on above: Gender dysphoria (Pr imary Dx); Hair thinning Start: 05-02-2023 End: 05-02-2023 ambulatory [facility] Start: 2023 End: 2023 Office outpatient visit 15 minutes Opal Kenny APRN, CNP Work Phone: [facility] Comment on above: Gender dysphoria (Pr imary Dx) Start: 02-08-2023 End: 02-08-2023 Emergency department patient visit [facility] Work Phone: Start: 11-21-2022 End: 11-21-2022 Office outpatient visit 25 minutes Opal Kenny APRN, CNP Work Phone: [facility] Comment on above: Gender dysphoria (Pr imary Dx) Start: 08-22-2022 End: 08-22-2022 Office outpatient visit 25 minutes Opal Kenny APRN, CNP Work Phone: [facility] Comment on above: Gender dysphoria (Pr imary Dx) Start: 2022 End: 2022 ambulatory No PCP Facility:[facility] Start: 2022 End: 2022 ambulatory No PCP [facility] Work Phone: Start: 2022 End: 2022 Patient encounter procedure No PCP [facility] Procedures Date Procedure Procedure Detail Performing Clinician Start: 07-02-2024 Radiologic exam ches t 2 views Holden Rogers MD Work Phone: Start: 06-17-2024 Radiologic exam ches t 2 views Myesha Ortiz APRN.CNP Work Phone: Start: 2022 Plain X-ray of finger N o PCP Plan of Treatment Date Care Activity Detail Author Start: 10-19-2031 Tetanus vaccination [facility] Start: 10-19-2031 Urine microalbumin profile DTaP,Tdap,Td Vaccine (4 - Td or Tdap) [facility] Start: 04-08-2028 Screening for malign ant neoplasm of colon [facility] [employer] Start: 05-22-2027 Diabetes Screening Diabetes Screenin g [facility] Start: 12-10-2026 Diabetes Screening Diabetes Screenin g [facility] Start: 04-13-2026 Screening for malign ant neoplasm of breast Breast Cancer Screening (Mammogram) [facility] [employer] Start: 10-16-2025 Hypertension screening Hyperte nsion Screening (#1) [facility] [employer] Start: 10-16-2025 Tobacco Screening Tobacco Screening [facility] [employer] Start: 08-22-2025 Diabetes mellitus screening Diabetes Screening [facility] Start: 01-18-2025 Influenza vaccination Imm-Infl uenza (Season Ended) [facility] [employer] Start: 01-16-2025 Depression Monitoring Depression Mon itoring [facility] [employer] Start: 10-17-2024 End: 10-16-2025 Assay of estradiol ASSAY OF TOTAL ESTRADIOL Routine Lab Routine Gender dysphoria Expected: 10/17/2024, Expires: 10/16/2025 [facility] Work Phone: Comment on above: Expected: 10/17/2024 , Expires: 10/16/2025 Start: 10-17-2024 End: 10-16-2025 Assay of testosterone total ASSAY OF TESTOSTERONE TOTAL Routine Lab Routine Gender dysphoria Expected: 10/17/2024, Expires: 10/16/2025 [facility] Work Phone: Comment on above: Expected: 10/17/2024 , Expires: 10/16/2025 Start: 10-17-2024 End: 10-16-2025 Comprehensive metabolic panel COMPREHENSIVE METABOLIC PANEL Routine Lab Routine Gender dysphoria Expected: 10/17/2024, Expires: 10/16/2025 [facility] Work Phone: Comment on above: Expected: 10/17/2024 , Expires: 10/16/2025 Start: 07-31-2024 Diabetes mellitus screening Diabetes Screening [facility] Start: 02-07-2024 Hepatitis C screening Hepatitis C Sc reening [facility] Comment on above: Postponed from 05/01 (Patient declines) Start: 02-07-2024 Screening for malign ant neoplasm of colon Colorectal Cancer Screening [facility] Comment on above: Postponed from 05/01 (Pending outside records) Start: 02-07-2024 Thyroid stimulating hormone measurement TSH Monitoring [facility] Comment on above: Postponed from 05/01 (Pending outside records) Start: 02-07-2024 Tobacco Screening Tobacco Screening [facility] Start: 02-01-2024 Diabetes mellitus screening Diabetes Screening [facility] Start: 01-19-2024 Covid-19 Vaccine () Covid-19 Vaccine () [facility] Start: 01-19-2024 Influenza vaccination [facility] Start: 11-22-2023 Depression Monitoring Depression Mon itoring [facility] Start: 11-14-2023 Diabetes mellitus screening Diabetes Screening [facility] Start: 08-24-2023 End: 08-20-2024 Assay of estradiol ASSAY OF TOTAL ESTRADIOL Lab Routine Gender dysphoria Expected: 08/24/2023, Expires: 08/20/2024 [facility] Work Phone: Comment on above: Expected: 08/24/2023 , Expires: 08/20/2024 Start: 08-24-2023 End: 08-20-2024 Assay of testosterone total ASSAY OF TESTOSTERONE TOTAL Lab Routine Gender dysphoria Expected: 08/24/2023, Expires: 08/20/2024 [facility] Work Phone: Comment on above: Expected: 08/24/2023 , Expires: 08/20/2024 Start: 08-24-2023 End: 08-20-2024 Comprehensive metabolic panel COMPREHENSIVE METABOLIC PANEL Lab Routine Gender dysphoria Expected: 08/24/2023, Expires: 08/20/2024 [facility] Work Phone: Comment on above: Expected: 08/24/2023 , Expires: 08/20/2024 Start: 05-08-2023 Depression Monitoring Depression [facility] Start: 05-08-2023 Hepatitis B vaccination Imm-He patitis B (1 of 3 - 3-dose series) [facility] Comment on above: Postponed from 05/01 (Patient declines) Start: 05-08-2023 HIV Screening HIV Screening [facility] Comment on above: Postponed from 05/01 (Patient declines) Start: 2023 Imm-Zoster, Recombin ant (1 of 2) Imm-Zoster, Recombinant (1 of 2) [facility] Start: 2023 Screening for malign ant neoplasm of breast Breast Cancer Screening (Mammogram) [facility] Start: 2023 Shingrix Vaccine (1 of 2) Shingrix Vaccine (1 of 2) [facility] Start: 02-21-2023 End: 05-24-2023 Assay of estradiol ASSAY OF TOTAL ESTRADIOL Lab Routine Gender dysphoria Expected: 02/21/2023, Expires: 05/24/2023 [facility] Work Phone: Comment on above: Expected: 02/21/2023 , Expires: 05/24/2023 Start: 02-21-2023 End: 05-24-2023 Assay of testosterone total ASSAY OF TESTOSTERONE TOTAL Lab Routine Gender dysphoria Expected: 02/21/2023, Expires: 05/24/2023 [employer] Phone: Comment on above: Expected: 02/21/2023 , Expires: 05/24/2023 Start: 02-21-2023 End: 05-24-2023 Comprehensive metabolic panel COMPREHENSIVE METABOLIC PANEL Lab Routine Gender dysphoria Expected: 02/21/2023, Expires: 05/24/2023 [employer] Phone: Comment on above: Expected: 02/21/2023 , Expires: 05/24/2023 Start: 01-19-2023 Hypertension screening Hyperte nsion Screening (#1) [facility] Start: 01-18-2023 Influenza vaccination Imm-Influenza (#1) [facility] Start: 08-23-2022 End: 12-22-2022 Assay of estradiol ASSAY OF TOTAL ESTRADIOL Lab Routine Gender dysphoria Expected: 08/23/2022, Expires: 12/22/2022 [employer] Phone: Comment on above: Expected: 08/23/2022 , Expires: 12/22/2022 Start: 08-23-2022 End: 12-22-2022 Assay of testosterone total ASSAY OF TESTOSTERONE TOTAL Lab Routine Gender dysphoria Expected: 08/23/2022, Expires: 12/22/2022 [employer] Phone: Comment on above: Expected: 08/23/2022 , Expires: 12/22/2022 Start: 08-23-2022 End: 12-22-2022 Comprehensive metabolic panel COMPREHENSIVE METABOLIC PANEL Lab Routine Gender dysphoria Expected: 08/23/2022, Expires: 12/22/2022 [employer] Phone: Comment on above: Expected: 08/23/2022 , Expires: 12/22/2022 Start: 05-20-2022 Screening for substa nce abuse Alcohol and Drug Screen [facility] Start: 04-20-2022 Depression Monitoring Depression Mon itoring [facility] Start: 06-14-2021 [id number]-82 (4 - Booster for Pfizer series) [id number]-48 (4 - Booster for Pfizer series) [facility] Start: 06-14-2021 [id number]-14 (4 - Pf izer series) [id number]-78 (4 - Pfizer series) [facility] Start: 2018 Screening for malign ant neoplasm of colon [facility] Start: 2008 Lipid panel Lipid Screening [facility] Start: 1992 Hepatitis B vaccination Imm-He patitis B (1 of 3 - 19+ 3-dose series) [facility] Start: 1992 Hepatitis B Vaccine (1 of 3 - 19+ 3-dose series) Hepatitis B Vaccine (1 of 3 - 19+ 3-dose series) [facility] Start: 1991 Anxiety Screening Anxiety Screening [facility] Start: 1991 Depression Screening Depression Scre ening [facility] Start: 1991 Hepatitis C screening Hepatitis C [facility] Start: 1991 HIV screening HIV Screening [facility] Start: 1988 HIV Screening HIV Screening [facility] Start: 1988 Relationship Safety Screening/Counseling Relationship Safety Screening/Counseling [facility] Start: 1983 Diabetes mellitus screening Diabetes Screening [facility] Start: 1973 Anxiety Screening Anxiety Screening [facility] Start: 1973 Hepatitis B vaccination Imm-He patitis B (1 of 3 - 3-dose series) [facility] Start: 1973 Hepatitis C screening Hepatitis C [facility] Start: 1973 Lipid panel Lipid Screening [facility] Start: 1973 Thyroid stimulating hormone measurement TSH Monitoring [facility] COVID & INFLUENZA A/ B & RSV PCR, ROUTINE COVID & INFLUENZA A/B & RSV PCR, ROUTINE Microbiology Routine URI with cough and congestion Ordered: 07/04/2024 [facility] Work Phone: Comment on above: Ordered: 07/04/2024 Patient Education Anatomy of the Brain [facility] Work Phone: Patient referral [facility] Work Phone: [facility] Immunizations Immunization Date Immunization Notes Care Provider Kristie gilbert 02-19-2022 influenza virus vaccine, unspecified formulation Opal Kenny FINANCIAL ANALYST,PUPPET MAKER Work Phone: [facility] Work Phone: 01-23-2022 influenza, injectabl e, quadrivalent, preservative free Opal Kenny FINANCIAL ANALYST,PUPPET MAKER Work Phone: [facility] Work Phone: 01-23-2022 PNEUMOCOCCAL CONJUGA TE PCV 20 Opal Kenny FINANCIAL ANALYST,PUPPET MAKER Work Phone: [facility] Work Phone: 10-18-2021 tetanus toxoid, redu geovani diphtheria toxoid, and acellular pertussis vaccine, adsorbed Opal Kenny FINANCIAL ANALYST,PUPPET MAKER Work Phone: [facility] Work Phone: 01-24-2021 influenza, injectabl e, quadrivalent, preservative free Opal Kenny FINANCIAL ANALYST,PUPPET MAKER Work Phone: [facility] Work Phone: 01-26-2020 influenza, injectabl e, quadrivalent, preservative free Opal Kenny FINANCIAL ANALYST,PUPPET MAKER Work Phone: [facility] Work Phone: 02-21-2019 influenza, injectabl e, quadrivalent, preservative free Opal Kenny FINANCIAL ANALYST,PUPPET MAKER Work Phone: [facility] [facility] Work Phone: 02-22-2018 influenza, injectabl e, quadrivalent, preservative free Opal Kenny FINANCIAL ANALYST,PUPPET MAKER Work Phone: [facility] Work Phone: 06-08-2017 influenza, injectabl e, quadrivalent, preservative free Opal Kenny FINANCIAL ANALYST,PUPPET MAKER Work Phone: [facility] [facility] Work Phone: 01-04-2016 influenza, seasonal, injectable, preservative free Opal Kenny FINANCIAL ANALYST,PUPPET MAKER Work Phone: [facility] Work Phone: 03-04-2015 influenza, seasonal, injectable, preservative free Opal Kenny FINANCIAL ANALYST,PUPPET MAKER Work Phone: [facility] Work Phone: 04-21-2013 influenza virus vaccine, unspecified formulation Opal Kenny FINANCIAL ANALYST,PUPPET MAKER Work Phone: [facility] Work Phone: 04-21-2013 influenza virus vaccine, whole virus Opal Kenny FINANCIAL ANALYST,PUPPET MAKER Work Phone: [facility] [employer] 02-20-2013 measles, mumps and rubella virus vaccine Opal Kenny FINANCIAL ANALYST,PUPPET MAKER Work Phone: [facility] [facility] Work Phone: 04-26-2010 diphtheria, tetanus toxoids and acellular pertussis vaccine, unspecified formulation Opal Kenny FINANCIAL ANALYST,PUPPET MAKER Work Phone: [facility] Work Phone: 04-26-2010 tetanus toxoid, redu geovani diphtheria toxoid, and acellular pertussis vaccine, adsorbed Opal Kenny FINANCIAL ANALYST,PUPPET MAKER Work Phone: [facility] Work Phone: Payers Date Payer Category Payer Private Health Insurance MMO SUP ERMED PPO [id number] 2023 Unknown MMO MMO SUPERMED PPO [id number] 2023-Present [phone] [address] [place] [address] PPO [id number] 2023 Private Health Insurance [id number] 2023 Unknown [id number] 2022 Private Health Insurance [id number] 2022 Unknown [id number] 2022 Private Health Insurance [id number] 2022 Self-pay 2022 Worker's Compensation [id number] 2021 Unknown [employer] O F [facility] [id number] 2021-Present [phone] [address] [address] [place] [address] Indemnity [id number] 2020 Private Health Insurance [id number] 2000 Unknown [id number] 1973 Unknown [id number] 2.16.840.1.671602.3.579.2. 903 1973 Unknown [id number] 2.16.840.1.600625.3.579.2. 903 1973 Unknown [id number] 2.16.840.1.423191.3.579.2. 3 1973 Unknown [id number] 2.16.840.1.849032.3.579.2. 903 1973 Unknown [id number] 2..840.1.046050.3.579.2. 1973 Unknown [id number] 2.16.840.1.242025.3.579.2. 1973 Unknown [id number] 2.840.1.594293.3.579.2. 1973 Unknown [id number] 2.16840.1.614699.3.579.2. 903 1973 Unknown [id number] 2.16840.1.713602.3.579.2. 1249 Unknown ANTHEM [id number] Unknown [id number] 2.16840.1.447509.3.579.2. 1186 Unknown [id number] 2.16840.1.600567.3.579.2. 462 Unknown [id number] 2.16.840.1.081179.3.579.2. 462 Unknown [id number] 2.16.840.1.388809.3.579.2. 462 Unknown [id number] 2.16.840.1.563531.3.579.2. 462 Unknown [id number] 2.16.840.1.412859.3.579.2. 462 Unknown [id number] 2.16.840.1.269022.3.579.2. 462 Unknown [id number] 2.16.840.1.464578.3.579.2. 462 Unknown [id number] 2.16.840.1.689289.3.579.2. 462 Unknown [id number] 2.16.840.1.230820.3.579.2. 462 Unknown [id number] 2.16.840.1.931832.3.579.2. 462 Unknown [id number] 2.16.840.1.700519.3.579.2. 462 Unknown [id number] 2.16.840.1.655773.3.579.2. 462 Social History Date Type Detail Facility [facility] Work Phone: Start: 1975 Sex Assigned At Male F [facility] Start: 01-19-2022 End: 06-17-2024 Tobacco smoking status NHIS Never smoked tobacco [facility] Work Phone: Start: 01-19-2022 End: 06-17-2024 Tobacco use and exposure Smokeless tobacco non-user [employer] Phone: Start: 01-19-2022 End: 10-16-2024 Alcohol intake Lifetime non-drinker (finding) [facility] Work Phone: Start: 08-17-2022 End: 04-30-2023 History of Social function [facility] Work Phone: Start: 01-04-2020 End: 04-30-2023 Social Connections [facility] Start: 11-18-2019 Social Connections a nd Isolation 2 [facility] Start: 02-08-2023 [facility] Start: 1975 [facility] History of tobacco use Passive smoker [facility] Mental Status Date Assessment Result Facility 02-08-2023 Cognitive function Awake;Alert;Appropriat e [facility] Work Phone: Clinical Notes 08-22-2022 to 10-16-2024 Opal Kenny APRN, CNP - 10/16/2024 12:29 PM Leydi Washington MA - 10/16/2024 11:00 AM EDElkin Kenny APRN, CNP - 10/16/2024 11:00 AM Leydi Washington MA - 10/16/2024 10:39 AM EDT Note Date & Type Note Facility 10-16-2024 History of Present illness Narrative Associated Problem(s): Hair thinning Assessment well managed at this time Plan Continue same management plan Pre-Visit Checklist Providers Notes Reviewed: Yes Labs/Orders reviewed and completed: Yes Patient called if labs/orders not completed: Yes Preventative Screening due: Health Maintenance Due Topic Date Due Lipid Screening Never done Hepatitis C Screening Never done Anxiety Screening Never done HIV Screening Never done Imm-Hepatitis B (1 of 3 - 19+ 3-dose series) Never done Hypertension Screening (1) Never done Imm-Zoster, Recombinant (1 of 2) Never done Depression Monitoring 08/26/2024 Images from the original note were not included. Chief Complaint / HPI: Chief Complaint Patient presents with Gender Affirming Hormone Therapy STI Screening HPI Problems Assessed, Plan, Orders & Medical Decision Making 1. Gender dysphoria (Primary) Overview: Initial started estrogen and spironolactone (01/20/2020), patient discontinued GAC 02/2020. Dysphoria, body hair, facial hair, masculine facial appearance, genitals Mental Health: Psychologist is Nora Wakefield ,and Simran Viveros: last visit was April 2021, stopped visits due to cost. Psychiatrist Dr. Jc Frazier Every 3 months. (08/01/2021) Restart Estradiol & spironolactone (05/23/2022) Increase spironolactone 75mg daily, continue Estradiol (10/16/2024) Increase spironolactone to 100mg daily (03/19/2023) Started Finasteride 5mg daily for patient reported hair thinning (02/20/2024) increase estradiol to 4mg /d cont pool (05/28/2024) increase estradiol to 6mg /d , cont pool and finasteride (10/16/2024) Increase spironolactone to 100mg daily Assessment & Plan: Gender Affirming Care - Follow-Up Visit: Name Reuben Gender Identity questioning Pronouns she 10/16/2024 9:48 AM 10/14/2024 12:00 AM [facility] Prescribed estradiol TAKE 2 TABLETS BY MOUTH EVERY MORNING AND TAKE 1 TABLET BY MOUTH EVERY EVENING (2 mg tab) TAKE 2 TABLETS BY MOUTH EVERY MORNING AND TAKE 1 TABLET BY MOUTH EVERY EVENING (2 mg tab) spironolactone 50 mg Daily oral 50 mg Daily oral Medication marked as long-term Side effects? none Adherence? Adherent Days in dosing cycle (if inj) Daily Energy - Mood Okay energy / mood is stable feeling good more sensitive emotionally at times Body Hair Skin is softer, facial an body less course and softer Fat re-distribution Hips and butt are bigger Breast Development Tenderness, sensitive, a little growth Erectile function a couple of times Scalp hair changes No changes Last Estradiol 12/11/2023: 50.8 05/22/2024: 78.4 08/22/2024: 251.0 Last Testosterone 12/11/2023: 475 05/22/2024: 286 08/22/2024: 267 Last Potassium 12/11/2023: 4.4 05/22/2024: 4.3 08/22/2024: 4.4 Assessment: improving with treatment feels like she is reaching goals , she would like testosterone to be lower, she would like to increase spironolactone today Patient connected with in [place]. - patient today reports not seen in 3 months has felt good and reports they got to a point where things just weren't going anywhere. Went to a group therapy for trans women in [place] and found it somewhat helpful, motivated to go back Plan: Change dose/Add new med Order labs Increase spironolactone to 100mg daily Follow up and labs in 3 months Orders: - estradioL (ESTRACE) 2 mg tablet; Take 2 Tablets by mouth every morning AND 1 Tablet every evening., Disp-90 Tablet, R-3 e-Prescribing, Long-term Dispense: 90 Tablet; Refill: 3 - spironolactone (ALDACTONE) 100 mg tablet; Take 1 Tablet by mouth once daily., Disp-30 Tablet, R-3 e-Prescribing, Long-term Dispense: 30 Tablet; Refill: 3 - finasteride (PROSCAR) 5 mg tablet; Take 1 Tablet by mouth once daily., Disp-30 Tablet, R-3 e-Prescribing, Long-term Dispense: 30 Tablet; Refill: 3 - COMPREHENSIVE METABOLIC PANEL Routine; Future - ASSAY OF TESTOSTERONE TOTAL Routine; Future - ASSAY OF TOTAL ESTRADIOL Routine; Future 2. Hair thinning Assessment & Plan: Assessment well managed at this time Plan Continue same management plan Orders: - finasteride (PROSCAR) 5 mg tablet; Take 1 Tablet by mouth once daily., Disp-30 Tablet, R-3 e-Prescribing, Long-term Dispense: 30 Tablet; Refill: 3 BMI Readings from Last 3 Encounters: 10/16/24 34.44 kg/m 01/19/22 29.85 kg/m 01/20/20 29.29 kg/m BMI follow up plan for 18+: Did not address today OR patient will address with their PCP BMI is not an accurate reflection of overall health status and is a problematic measurement for many reasons. The BMI was intended to be a statistical population measure, not an individual health metric and is rooted in normative and racist ideals of body size. We discussed other metabolic indicators of health. Staying committed to physical activity and mindfulness, including mindful eating, can improve or maintain overall well-being and mood. Follow-up Instructions Return in about 3 months (around 01/16/2025) for GAC F/u, 3 months, Virtual Visit, labs 1 wk before f/u. Check-out Note: GAC F/u, 3 months, Virtual Visit, labs 1 wk before f/u Future Appointments Date Time Provider Department Center 01/13/2025 9:00 AM Opal Kenny APRN,[facility] ROS & Physical Exam Review of Systems Constitutional: Negative for fatigue and unexpected weight change. Respiratory: Negative for cough, chest tightness and shortness of breath. Cardiovascular: Negative for chest pain, palpitations and leg swelling. Breasts: Negative. Negative for lumps, pain, nipple discharge and skin changes. Gastrointestinal: Negative for nausea and vomiting. Skin: Negative for rash. Neurological: Negative for dizziness, light-headedness and headaches. Hematological: Negative for adenopathy. Does not bruise/bleed easily. Psychiatric/Behavioral: Positive for dysphoric mood. All other systems reviewed and are negative. Physical Exam Vitals and nursing note reviewed. Cardiovascular: Rate and Rhythm: Normal rate and regular rhythm. Pulses: Normal pulses. Heart sounds: Normal heart sounds. No murmur heard. Comments: No noted lower edema, pain or discoloration Pulmonary: Effort: Pulmonary effort is normal. Breath sounds: Normal breath sounds. No wheezing or rales. Skin: General: Skin is warm and dry. Findings: No bruising or rash. Neurological: Mental Status: She is alert. Psychiatric: Mood and Affect: Mood normal. Rooming Note: Reuben presents to [facility] today for Gender Affirming Hormone Therapy Since Last Visit? Been to an Urgent Care, ER or Hospital? NO Seen any other providers / specialists? PCP Received any vaccines? NO Had any tests, like a Xray, mammogram or colonoscopy? X ray Vaccines Recommended Today: Health Maintenance Due Topic Date Due Imm-Hepatitis B (1 of 3 - 19+ 3-dose series) Never done Imm-Zoster, Recombinant (1 of 2) Never done ASQ To be completed annually on adolescents ages 18-24 No data to display SBIRT 10/16/2024 10:36 AM Little interest or pleasure in doing things Several days Feeling down, depressed or hopeless [include irritable if under 18] Several days PHQ2 Score (!) 2 Little interest or pleasure in doing things Several days Feeling down, depressed or hopeless [include irritable if under 18] Several days Trouble falling or staying asleep, or sleeping too much More than half the days Feeling tired or having little energy Several days Poor appetite or overeating Not at all Feeling bad about yourself - or that you are a failure or have let yourself or your family down Not at all Trouble concentrating on things, such as reading the newspaper or watching television? Several days Moving or speaking so slowly that other people could have noticed? Or the opposite - being so fidgety or restless that you have been moving around a lot more than usual Not at all Thoughts you would be better off or of hurting yourself in some way Not at all If you checked off any problems, how difficult have these problems made it for you to do your work, take care of things at home, or get along with other people? Somewhat difficult PHQ-9 Total Score (Auto Calculated) 6 Depression Severity: Mild No data to display PHQ-9 Total Score (Auto Calculated) 6 at 10/16/2024 10:36 AM DAVID-7 No data to display Health Maintenance Due Topic Date Due Lipid Screening Never done Hepatitis C Screening Never done Anxiety Screening Never done HIV Screening Never done Imm-Hepatitis B (1 of 3 - 19+ 3-dose series) Never done Hypertension Screening (1) Never done Imm-Zoster, Recombinant (1 of 2) Never done Goals as of 10/16/2024 at 10:39 AM None Patient Active Problem List Diagnosis Hemochromatosis Panic disorder with agoraphobia Obsessive-compulsive disorder Generalized anxiety disorder MDD (major depressive disorder) Gender dysphoria Counseling on health promotion and disease prevention Hair thinning HIV testing offered: Accepted STI testing offered: Accepted Associated Problem(s): Gender dysphoria Images from the original note were not included. Gender Affirming Care - Follow-Up Visit: Name Reuben Gender Identity questioning Pronouns she 10/16/2024 9:48 AM 10/14/2024 12:00 AM [facility] Prescribed estradiol TAKE 2 TABLETS BY MOUTH EVERY MORNING AND TAKE 1 TABLET BY MOUTH EVERY EVENING (2 mg tab) TAKE 2 TABLETS BY MOUTH EVERY MORNING AND TAKE 1 TABLET BY MOUTH EVERY EVENING (2 mg tab) spironolactone 50 mg Daily oral 50 mg Daily oral Medication marked as long-term Side effects? none Adherence? Adherent Days in dosing cycle (if inj) Daily Energy - Mood Okay energy / mood is stable feeling good more sensitive emotionally at times Body Hair Skin is softer, facial an body less course and softer Fat re-distribution Hips and butt are bigger Breast Development Tenderness, sensitive, a little growth Erectile function a couple of times Scalp hair changes No changes Last Estradiol 12/11/2023: 50.8 05/22/2024: 78.4 08/22/2024: 251.0 Last Testosterone 12/11/2023: 475 05/22/2024: 286 08/22/2024: 267 Last Potassium 12/11/2023: 4.4 05/22/2024: 4.3 08/22/2024: 4.4 Assessment: improving with treatment feels like she is reaching goals , she would like testosterone to be lower, she would like to increase spironolactone today Patient connected with in [place]. - patient today reports not seen in 3 months has felt good and reports they got to a point where things just weren't going anywhere. Went to a group therapy for trans women in [place] and found it somewhat helpful, motivated to go back Plan: Change dose/Add new med Order labs Increase spironolactone to 100mg daily Follow up and labs in 3 months documented in this encounter [facility] Work Phone: 10-16-2024 Miscellaneous Notes Healthy Eating 101 Overall goals: Increased vegetable and fruit intake; Consumption of foods that are high in fiber; Consumption of whole-grain foods; Increased water intake; Decreased intake of dietary sugar (eg, sugar-sweetened beverages); Sufficient protein intake; and Sufficient intake of healthy fats. 1. Choose foods with a wide variety of colors and textures, in their most natural forms. Foods that are enjoyed in a natural state are the most satisfying and provide the greatest nutritional value. Choose a variety of unprocessed colors and textures--foods as close to their original, natural states as possible--will make the most significant difference in long-term health and longevity. Nearly one half of all cardiometabolic deaths (heart disease, stroke, type 2 diabetes) in the [place] were linked to not enough vegetables, fruits, nuts, and seeds, as well as omega-3 fatty acids. 2. Avoid or dramatically minimize processed foods. Processed foods and beverages, such as packaged snacks, smoked meats, white flour, and sugar-sweetened foods and beverages, should be avoided. 7.4% of all cardiometabolic deaths were linked to sugar-sweetened beverages, and 8.2% were linked to processed meats. Salt showed a similar negative impact. Is believed that sugar is the new tobacco. Recent studies show that artificial sweeteners and diet soda may be harmful. Sodium is another long-time concern, and is prevalent in processed foods. Nearly 71% of sodium--comes from foods prepared outside the home Sodium naturally occurring in whole foods is rarely substantial. 3. Consume healthy oils for heart health: fish, olive, avocado. 7.8% of cardiometabolic deaths were tied to low levels of omega-3 fatty acids in the diet Fish oils can prevent further illness in those with a history of heart disease. The AHA recommends that everybody eat fish that are rich in omega-3 fatty acids. Other beneficial fats include olive oil, avocado oil, canola oil, walnut oil, flaxseed oil, and darell seed oil. 4. Forego red meat and live longer. Although red meat is a principal source of protein and fat, research shows that consumption of red meat is linked to increased risks for cancer, diabetes, and cardiovascular disease, all of which decrease life 5. Consume fermented foods/probiotics and fiber for gastrointestinal and overall health. Probiotics contain microorganisms that confer gastrointestinal benefit. They are commonly found in yogurt, kefir, and unpasteurized fermented foods and drinks. They can also be taken in supplement form. In order to thrive, probiotics require prebiotics as food, which can be found in fiber Probiotics contain healthy yeast and bacteria that decrease harmful organisms in the gut and improve immune health 6. Avoid alcohol, or limit consumption to one drink per day for women or two for men a. Alcohol has been linked to several conditions and diseases, including seven cancers. 7. Try not to substitute food sources with vitamin supplements. a. Although supplements may not cause harm, they could potentially make us a bit more lax in terms of trying to eat a healthful diet, and evidence that supplements can replace genuine nutrition is scarce. documented in this encounter Touch[employer] Phone: 10-13-2024 Note DATE: 10/14/2024 CHIEF COMPLAINT: Chief Complaint Patient presents with Urinary Incontinence Urge Incontinence Urinary Urgency Rx Myrbetriq in past - stomach upset, stopped taking it after few doses; unsure if helpful Urinary Frequency Per patient, when he lays down, has to use the bathroom several times HISTORY OF PRESENT ILLNESS: Reuben Carreno is a 49 y.o. adult with history of urinary frequency. Has been on meds in the past for BPH according to the patient. Has seen urology in the past but not for the last 3 years. Was seen here 2 years ago , for the same issues, can't remember if he took the Myrbetriq he/she was given Initially seen by and referred by Brent Crocker MD . Duration: chronic Aggravating Factors: IC ? Alleviating Factors: none Associated Symptoms: frequency, urgency,nocturia, Systemic:The patient denies any weight loss, malaise, fatigue, pain, or night sweats. Urinary: The patient reports normal urinary function. Patient denies urinary dysuria, hematuria, or incontinence. Bowel: No constipation, diarrhea, or fecal incontinence HISTORY: PMH Past Medical History: Diagnosis Date Anxiety Asthma Depression Gender identity disorder, unspecified GERD (gastroesophageal reflux disease) Hiatal hernia 10/16/2022 AFS grade IV, 2 cm type-I sliding Hypertension Hypothyroidism Incontinence of urine Interstitial cystitis Vitamin D deficiency PSH Past Surgical History: Procedure Laterality Date BIOPSY LIVER COLONOSCOPY N/A 04/18/2023 Procedure: COLONOSCOPY; Surgeon: Dago Davis MD; Location: [facility]; Service: General Surgery COLONOSCOPY W/ POLYPECTOMY 2019 [place] COLONOSCOPY W/ POLYPECTOMY 11/10/2011 CYSTO CYSTO EGD N/A 10/16/2022 Procedure: ESOPHAGOGASTRODUODENOSCOPY WITH BIOPSY, ENDO FLIP AND SHEA CHIP PLACEMENT; Surgeon: Dago Davis MD; Location: [facility]; Service: General Surgery MULTIPLE TOOTH EXTRACTIONS 10/25/2022 with cyst excision PROLONGED ACID REFLUX TEST 48H PH N/A 10/16/2022 Procedure: PROLONGED ACID REFLUX TEST 48H PH; Surgeon: Dago Davis MD; Location: [facility]; Service: General Surgery SH Social History [1] FH Family History Problem Relation Age of Onset Cancer Mother Depression Mother Breast cancer Mother Hypertension Father Scoliosis Paternal Grandmother Thyroid disease Sister Arthritis Brother Diabetes Maternal Aunt Diabetes Maternal Uncle ALLERGIES AND MEDICATIONS Allergies: Levaquin [levofloxacin] and Latex, natural rubber Current Medications[2] REVIEW OF SYSTEMS: CONSTITUTIONAL: No weight loss, malaise, or fatigue EYES: No changes in vision, no blurry vision EARS, NOSE, MOUTH, THROAT: No change in hearing, No difficulty swallowing. CARDIOVASCULAR: No chest pain or heart palpitations. RESPIRATORY: No difficulty breathing or wheezing. GI: No changes in bowel habit. No blood in his stool. : No dysuria, hematuria, or urinary tract infections. The rest as above in the HPI. MUSCULOSKELETAL: No joint pain or swelling. VASCULAR: No peripheral edema. No calf pain with exertion. NEURO: No changes in gait or sensation. SKIN: No rashes or lesions. PSYCHIATRIC: No depressive or suicidal thoughts PHYSICAL EXAM: CONSTITUTIONAL: VITAL SIGNS: Vitals: 10/13/24 1544 BP: 138/89 BP Location: Right arm Patient Position: Sitting BP Cuff Size: X-large Adult Pulse: 64 SpO2: 98% GENERAL: Well appearing. No acute distress. EYES: PERRLA, EOMI EARS, NOSE, MOUTH, THROAT: mucous memebranes moist, trachea midline CARDIOVASCULAR: no peripheral edema. ABDOMEN: Soft, nondistended, nontender. BACK: No CVA tenderness. : Deferred per patient MUSCULOSKELETAL: normal extremity ROM with no edema NEURO: Normal gait, CN II-XII grossly intact PSYCHATRIC: A & O x3, mood and affect appropriate SKIN: No rashes, ulcers, or lesions visible DATA: IMAGING: LAB: POC: Urine dipstick shows positive for small red blood cells. ASSESSMENT / PLAN: Problem List Items Addressed This Visit None Visit Diagnoses Urinary frequency - Primary Relevant Orders POC Urinalysis Dipstick, Auto (Completed) Measure post void residual (Completed) Past history of IC. He has been to urology in the past and Dx with IC followed up in [place] about 3 years ago and was told he did not have IC. Was on [place] in the past. Bothered by overactive bladder symptoms. Up multiple times per night to urinate. States that his urine stream is sometimes small and urinates small amounts- sounds like bladder spasms. We discussed treatment options including: Myrbetriq 50 mg sent to pharmacy not sure if he took it the last time I gave it to him. Complaining of not being able to pull back the foreskin--Interested in circumcision sent cream to use for 3 months Also complaining of his penis shrinking - he is taking estrogen for gender dysphoria Follow up 3 sam (more content not included)... [facility] 08-26-2024 Note OFFICE VISIT JEREMY S NOTE Here today for Leg Pain (Bilateral leg pain and generalized body aches x 3-4 weeks. ( Patient is having issues falling asleep)) HPI Reuben is complaining of leg pain, generalized weakness Has generalized pain abd, arms legs 2-3 weeks Brain fog Hard to sleep Hard to fall asleep Once he falls asleep hard to wake up Has pain when he falls asleep and when he wakes Has body aches most of the time but recently more Normally 1-2 10 Now - sometimes up to 5 When I reviewed the areas of pain He said yes to the jaw neck upper and lower arm chest abdomen upper and lower legs Along with problems with sleep and brain fog he would meet the diagnostic criteria for fibromyalgia He did try to get a massage last week to help with this and that was rather painful Feels this time it is more painful than the last time but not much memory of the last time in november Also c/o stuffy nose on the right side Patient was seen last November for similar complaints we did blood work including a rheumatoid factor, and sed rate as well as a TSH, vitamin D level, hemoglobin A1c A1c was slightly elevated at 6.1 but everything else was normal He has had issues with fatigue on and off In May 2023 he was having fatigue and sleepiness and they changed some of his behavioral health medicines His weight has gone up a little bit But would look back a year the difference is only a few pounds Current medications include estradiol, finasteride, spironolactone For gender dysphoria Also on prazosin hydroxyzine fluoxetine clonazepam and BuSpar for anxiety These have been stable Last blood work done 08/22/24 Showed estrogen levels above normal, testosterone level of 267 with a normal being 2 64-900 Glucose was normal kidney liver functions are normal He was seen multiple times in June for an upper respiratory infection Last seen by myself on 07/10/2024 and placed on azithromycin continued with Ryan Marley This has resolved The following portions of the patient's history were reviewed and updated as appropriate: allergies, current medications and problem list. The patient's surgical, family, and social history was reviewed and updated as appropriate. Review of Systems Review of Systems Constitutional: Negative for fever. HENT: Positive for sinus pressure. Negative for sore throat. Stuffy nose Respiratory: Negative for cough, shortness of breath and wheezing. Cardiovascular: Positive for chest pain. Gastrointestinal: Positive for abdominal pain. Negative for constipation, diarrhea, nausea and vomiting. Genitourinary: Positive for frequency. Hard to empty bladder Musculoskeletal: Positive for arthralgias and myalgias. Skin: Negative for rash and wound. Some itchying Neurological: Negative for dizziness, light-headedness and headaches. Psychiatric/Behavioral: Positive for sleep disturbance. The patient is not nervous/anxious. Vitals: 08/26/24 1419 08/26/24 1430 BP: 121/78 BP Location: Right arm Patient Position: Sitting BP Cuff Size: X-large Adult Pulse: 74 Resp: 16 16 Temp: 98.2 degrees F (36.8 degrees C) TempSrc: Temporal SpO2: 96% Weight: 97.6 kg (215 lb 1.6 oz) Height: 5' 7 5' 7 BP Readings from Last 3 Encounters: 08/26/24 121/78 07/10/24 118/79 06/15/24 134/84 Wt Readings from Last 3 Encounters: 08/26/24 97.6 kg (215 lb 1.6 oz) 07/10/24 98.2 kg (216 lb 6.4 oz) 06/15/24 94.5 kg (208 lb 6.4 oz) Body mass index is 33.69 kg/m . Physical Exam Reuben Carreno Is a 49 y.o.. adult. Alert and oriented to person, time and place In No Acute Distress Constitutional: Appearance: Normal appearance, HEENT: Head; normocephalic The right nares was a little bit congested but is just more pale and swollen Neck: soft and supple, FROM, no lymphadenopathy or masses No thyromegaly Cardiovascular Rate and Rhythm: Normal rate and regular rhythm: Heart sounds: Normal heart sounds, S1 normal, S2 normal Pulses: Radial pulses: normal and equal Pulmonary: Pulmonary effort is normal. No Respiratory Distress: Breath sounds are normal, no wheezing Abdominal: Palpation: soft and non tender Normal bowel sounds No guarding or rebound Musculoskeletal: Normal ROM Lower extremities: no edema, Skin: is warm and dry, no rashes Neuro: No focal deficits Psych: behavior is normal, mood and affect are normal Assessment/Plan Problem List Items Addressed This Visit Fibromyalgia - Primary Find a physical therapy office and let me know and we can place a referral Talk to your [facility] health provider about using amitriptyline for this Also consider flexeril if we can't use that If you fine a audiometric technician at the [facility] to see for this I can place a referral We talked little bit about fibromyalgia Recommended treatment would be to start with physical therapy and consider using something like amitripty (more content not included)... [facility] 07-10-2024 Note OFFICE VISIT JEREMY Hobbs NOTE Here today for Cough (Productive cough with green tinged phlegm and loss of voice due to cough for 2 weeks./Pain on the right lower hip since yesterday. Patient states pain is getting better ) JERRELL Tellez has been battling an upper respiratory infection for the last 3 weeks Most recently had a telephone visit with Tianna on 07/06 Today a little better Still coughing a lot Has coughing spells Mucus clear to green Nose congested No sore throat Hoarse voice Using inhaler every 4-6 hours mucinex He is now complaining of pain in his right side and low back He was seen in an urgent care yesterday Diagnosed with acute right-sided low back pain with right-sided sciatica And given prednisone has not started on this yet This started the day before when he picked up a 40 pack case of water Pain is much better today Took ibuprofen last night So today he said he really does not need anything for the pain The following portions of the patient's history were reviewed and updated as appropriate: allergies, current medications and problem list. The patient's surgical, family, and social history was reviewed and updated as appropriate. Review of Systems Review of Systems Constitutional: Negative for fever. HENT: Positive for rhinorrhea, sinus pressure and sore throat. Negative for ear pain and sinus pain. Eyes: No change in vision Respiratory: Positive for cough. Negative for shortness of breath. Cardiovascular: Negative for chest pain. Gastrointestinal: Negative for abdominal pain, nausea and vomiting. Musculoskeletal: Positive for back pain. Negative for arthralgias and myalgias. Skin: Negative for rash and wound. Neurological: Negative for dizziness and headaches. Psychiatric/Behavioral: Negative for sleep disturbance. Vitals: 07/10/24 1014 BP: 118/79 BP Location: Right arm Patient Position: Sitting BP Cuff Size: X-large Adult Pulse: 71 Resp: 16 Temp: 98.2 degrees F (36.8 degrees C) TempSrc: Temporal SpO2: 95% Weight: 98.2 kg (216 lb 6.4 oz) Height: 5' 7 BP Readings from Last 3 Encounters: 07/10/24 118/79 06/15/24 134/84 12/11/23 113/76 Wt Readings from Last 3 Encounters: 07/10/24 98.2 kg (216 lb 6.4 oz) 06/15/24 94.5 kg (208 lb 6.4 oz) 12/11/23 94.1 kg (207 lb 6.4 oz) Body mass index is 33.89 kg/m . Physical Exam Reuben Carreno Is a 49 y.o.. adult. Alert and oriented to person, time and place In No Acute Distress Constitutional: Appearance: Normal appearance, HEENT: Head; normocephalic Ears are clear Nose is a little bit congested with clear mucus Throat is not injected Neck: soft and supple, FROM, no lymphadenopathy or masses No thyromegaly Cardiovascular Rate and Rhythm: Normal rate and regular rhythm: Heart sounds: Normal heart sounds, S1 normal, S2 normal Pulses: Radial pulses: normal and equal Pulmonary: Pulmonary effort is normal. No Respiratory Distress: Breath sounds are normal, no wheezing Abdominal: Palpation: soft and non tender Normal bowel sounds No guarding or rebound Musculoskeletal: Normal ROM Straight leg raise felt a little bit of pain on the left side today Lower extremities: no edema, Skin: is warm and dry, no rashes Neuro: No focal deficits Psych: behavior is normal, mood and affect are normal Assessment/Plan Problem List Items Addressed This Visit URI (upper respiratory infection) - Primary Will start azithromycin for the cough Continue with tessalon Most upper respiratory infections including sinusitis, bronchitis, bronchiolitis, colds, are caused by viruses. Viruses do not respond to antibiotics, and we do not recommend using them unless the symptoms of continued beyond 10 to 14 days, and then sometimes we use them. Treatment for these illnesses would typically be symptomatic treatment. Using Tylenol or ibuprofen for any headache body aches or fever. Using decongestants something like Sudafed if you can take that for stuffy nose. Could consider using Afrin nasal spray for a short period of time for a stuffy nose. Also for nasal congestion using Flonase can be helpful or using [place] mist nasal spray And then something for the cough, [id number] like NyQuil DayQuil, or Robitussin or Mucinex are all acceptable. Taking zinc up to 50 mg daily if it started early on in the illness has been shown to slightly decrease the length of time that you have the cold. Another study showed that eating [employer] chicken soup was as good as most medications to help with the common cold. For prevention of colds The #1 best thing is frequent handwashing Second would be the use of a license examiner to be sure that the utensils that go in your mouth are washed with very hot water And third would be zinc, those who took 30 to 50 mg daily for 5 months prior to cold seasons had fewer colds Relevant Medications azithromycin (Z-DAIJA) 5 day dose pack (more content not included)... [facility] 07-09-2024 Instructions Minerva Easton APRN.PUPPET MAKER - 07/09/2024 4:54 PM EST ASSESSMENT/PLAN: 1. Acute right-sided low back pain with right-sided sciatica - ICD9: 724.2, 724.3, ICD10: M54.41 Sciatica - Patient given instructions use of medications as ordered, intermittent rest, intermittent ice/heat - Follow up with primary care provider or sooner if symptoms persist or worsen - PREDNISONE 10 MG TABLET SCIATICA: Your exam shows you have sciatica, a condition most often seen in patients with disc disease of the lower back. Sciatica causes pain to radiate from the lower back or buttock area down the leg. It results from pressure on nerve roots coming out of the spine when a disc deteriorates and pushes to one side. Often there is a history of back problems. In most cases sciatica improves greatly with conservative treatment. Most patients with it are completely better after 2-4 weeks of bed rest and other supportive care. Bed rest reduces the disc pressure greatly; sitting is the worst position since the pressure on the disc is over 5 times greater than it is while lying down. You should avoid bending, lifting, and all other activities which make the problem worse. After the pain improves, you may continue with normal activity, taking brief periods for bed rest throughout the day until you are back to normal. Aspirin, ibuprofen, or other anti-inflammatory drugs are often used to help control pain. Muscle relaxants may help by relieving spasm and providing mild sedation. Cold or heat therapy and massage may also give significant relief. Spinal manipulation is not recommended because it can increase the degree of disc protrusion. Surgery is reserved for patients that do not improve with conservative treatment, or who have signs of severe nerve root pressure. You should see your doctor for follow up care as recommended. A program for back injury rehabilitation with stretching and strengthening exercises is an important part of management. Please call your doctor, a back specialist, or the emergency room right away if you notice increased pain, weakness, or numbness in your legs, or if you have any difficulty with bladder or bowel control. documented in this encounter [facility] 07-09-2024 Note HNO ID: [id number] Author: MINERVA EASTON APRN.LULU Service: ? Author Type: Nurse Practitioner Type: Progress Notes Filed: 07/09/2024 17:08 Note Text: Subjective HPI Pt is a 49 y/o male who presents with R sided shooting low back pain x 1 day. Pt reports picking up a 40 pack case of water at the grocery store yesterday and had minimal back pain afterward This morning he woke up with severe shooting R sided back pain and felt like he could not move. No reports of loss of bowel/bladder. No reports of saddle anesthesia. Pt does report mild tingling in the R anterior thigh. Pt also reports having flu-like symptoms x 2 weeks. He was seen on 07/04 and given a prescription for prednisone for 5 days. Over the weekend, the pt reports coughing so hard that he passed out. Pt reports going to [place] ER to be evaluated, which he was told that he had a vasovagal response from coughing. Pt has been taking tessalon perle and state that it has been helping. He has had two chest xrays which were negative. Review of Systems Constitutional: Positive for malaise/fatigue. Negative for chills and fever. HENT: Negative for congestion, ear pain, sinus pain and sore throat. Respiratory: Positive for cough and sputum production (green sputum). Cardiovascular: Negative. Musculoskeletal: Positive for back pain (shooting pain down R leg). Neurological: Positive for tremors (chronic per patient). BP 133/85 Pulse 67 Temp 36.4 ?C (97.6 ?F) Resp 18 Wt 97.5 kg (214 lb 15.2 oz) SpO2 100% BMI 33.78 kg/m? PAST MEDICAL HISTORY Diagnosis Date Anxiety Asthma Depression GERD (gastroesophageal reflux disease) Hemochromatosis Hypertension No past surgical history on file. ALLERGIES Fluvoxamine; Nitrofurantoin Monohyd/M-Cryst; Latex, Natural Rubber; and Levofloxacin MEDICATIONS predniSONE (DELTASONE) 10 mg tablet Take 4 tabs daily for 3 days, then 2 tabs daily for 3 days, then 1 tab daily for 3 days with food. benzonatate (TESSALON PERLE) 100 mg capsule Take 1 capsule by mouth every 8 hours as needed for cough for up to 15 days. FLUoxetine (PROZAC) 20 mg capsule take 1 capsule by mouth IN ADDITION TO TWO 40 MG CAPSULES once da... (REFER TO PRESCRIPTION NOTES). FLUoxetine (PROZAC) 40 mg capsule Take 80 mg by mouth once daily. busPIRone (BUSPAR) 15 mg tablet Take 15 mg by mouth two times a day. prazosin (MINIPRESS) 2 mg cap Take 2 mg by mouth daily at bedtime. finasteride (PROSCAR) 5 mg tablet Take 1 tablet by mouth once daily. ARIPiprazole (ABILIFY) 2 mg tablet Take 2 mg by mouth. esomeprazole magnesium (NEXIUM) 40 mg packet famotidine (PEPCID) 20 mg tablet Take 20 mg by mouth. estradiol (ESTRACE) 2 mg tablet Take by mouth. spironolactone (ALDACTONE) 50 mg tablet Take 50 mg by mouth once daily. hydrOXYzine HCl (ATARAX) 10 mg tablet Take 10 mg by mouth. albuterol HFA (PROVENTIL HFA, VENTOLIN HFA) 90 mcg/actuation inhaler Inhale 2 Puffs as instructed every 4 hours as needed for wheezing/shortness of breath. clonazePAM (KLONOPIN) 0.5 mg tablet Take 0.25 mg by mouth as needed. No family history on file. Social History Tobacco Use Smoking status: Never Passive exposure: Current Smokeless tobacco: Never Objective Physical Exam Constitutional: General: He is awake. HENT: Head: Normocephalic. Right Ear: Hearing and tympanic membrane normal. Left Ear: Hearing and tympanic membrane normal. Nose: Nose normal. Mouth/Throat: Mouth: Mucous membranes are moist. Pharynx: Oropharynx is clear. Eyes: Conjunctiva/sclera: Conjunctivae normal. Cardiovascular: Rate and Rhythm: Normal rate and regular rhythm. Pulmonary: Effort: Pulmonary effort is normal. Breath sounds: Normal breath sounds. Musculoskeletal: Lumbar back: Spasms and tenderness (tenderness of R sacroiliac joint) present. Positive right straight leg raise test. Neurological: Mental Status: He is alert. Motor: Motor function is intact. Gait: Gait abnormal. ASSESSMENT/PLAN: 1. Acute right-sided low back pain with right-sided sciatica - ICD9: 724.2, 724.3, ICD10: M54.41 Sciatica - Patient given instructions use of medications as ordered, intermittent rest, intermittent ice/heat - Follow up with primary care provider or sooner if symptoms persist or worsen - PREDNISONE 10 MG TABLET Mary Jane Neves - Follow-up with your PCP in 3-5 days if symptoms have not improved or sooner if symptoms worsen - Discussed red flags and need for immediate medical evaluation if any occur. - Discussed supportive care treatment with fluids, rest and analgesia. - Discussed expected course of illness TEACHING PROVIDER (Physician/PA/FINANCIAL ANALYST) NOTE OF PERSONAL INVOLVEMENT IN CARE: I have personally seen and examined the patient and performed the medical decision-making components. I have reviewed the Advanced Practice Registered Nurse (FINANCIAL ANALYST) Student's documentation and verified the findings in the note as w (more content not included)... [facility] 07-09-2024 History of Present illness Narrative Subjective HPI Pt is a 49 y/o male who presents with R sided shooting low back pain x 1 day. Pt reports picking up a 40 pack case of water at the grocery store yesterday and had minimal back pain afterward This morning he woke up with severe shooting R sided back pain and felt like he could not move. No reports of loss of bowel/bladder. No reports of saddle anesthesia. Pt does report mild tingling in the R anterior thigh. Pt also reports having flu-like symptoms x 2 weeks. He was seen on 07/04 and given a prescription for prednisone for 5 days. Over the weekend, the pt reports coughing so hard that he passed out. Pt reports going to [place] ER to be evaluated, which he was told that he had a vasovagal response from coughing. Pt has been taking tessalon perle and state that it has been helping. He has had two chest xrays which were negative. Review of Systems Constitutional: Positive for malaise/fatigue. Negative for chills and fever. HENT: Negative for congestion, ear pain, sinus pain and sore throat. Respiratory: Positive for cough and sputum production (green sputum). Cardiovascular: Negative. Musculoskeletal: Positive for back pain (shooting pain down R leg). Neurological: Positive for tremors (chronic per patient). BP 133/85 Pulse 67 Temp 36.4 C (97.6 F) Resp 18 Wt 97.5 kg (214 lb 15.2 oz) SpO2 100% BMI 33.78 kg/m PAST MEDICAL HISTORY Diagnosis Date Anxiety Asthma Depression GERD (gastroesophageal reflux disease) Hemochromatosis Hypertension No past surgical history on file. ALLERGIES Fluvoxamine; Nitrofurantoin Monohyd/M-Cryst; Latex, Natural Rubber; and Levofloxacin MEDICATIONS predniSONE (DELTASONE) 10 mg tablet Take 4 tabs daily for 3 days, then 2 tabs daily for 3 days, then 1 tab daily for 3 days with food. benzonatate (TESSALON PERLE) 100 mg capsule Take 1 capsule by mouth every 8 hours as needed for cough for up to 15 days. FLUoxetine (PROZAC) 20 mg capsule take 1 capsule by mouth IN ADDITION TO TWO 40 MG CAPSULES once da... (REFER TO PRESCRIPTION NOTES). FLUoxetine (PROZAC) 40 mg capsule Take 80 mg by mouth once daily. busPIRone (BUSPAR) 15 mg tablet Take 15 mg by mouth two times a day. prazosin (MINIPRESS) 2 mg cap Take 2 mg by mouth daily at bedtime. finasteride (PROSCAR) 5 mg tablet Take 1 tablet by mouth once daily. ARIPiprazole (ABILIFY) 2 mg tablet Take 2 mg by mouth. esomeprazole magnesium (NEXIUM) 40 mg packet famotidine (PEPCID) 20 mg tablet Take 20 mg by mouth. estradiol (ESTRACE) 2 mg tablet Take by mouth. spironolactone (ALDACTONE) 50 mg tablet Take 50 mg by mouth once daily. hydrOXYzine HCl (ATARAX) 10 mg tablet Take 10 mg by mouth. albuterol HFA (PROVENTIL HFA, VENTOLIN HFA) 90 mcg/actuation inhaler Inhale 2 Puffs as instructed every 4 hours as needed for wheezing/shortness of breath. clonazePAM (KLONOPIN) 0.5 mg tablet Take 0.25 mg by mouth as needed. No family history on file. Social History Tobacco Use Smoking status: Never Passive exposure: Current Smokeless tobacco: Never Objective Physical Exam Constitutional: General: He is awake. HENT: Head: Normocephalic. Right Ear: Hearing and tympanic membrane normal. Left Ear: Hearing and tympanic membrane normal. Nose: Nose normal. Mouth/Throat: Mouth: Mucous membranes are moist. Pharynx: Oropharynx is clear. Eyes: Conjunctiva/sclera: Conjunctivae normal. Cardiovascular: Rate and Rhythm: Normal rate and regular rhythm. Pulmonary: Effort: Pulmonary effort is normal. Breath sounds: Normal breath sounds. Musculoskeletal: Lumbar back: Spasms and tenderness (tenderness of R sacroiliac joint) present. Positive right straight leg raise test. Neurological: Mental Status: He is alert. Motor: Motor function is intact. Gait: Gait abnormal. ASSESSMENT/PLAN: 1. Acute right-sided low back pain with right-sided sciatica - ICD9: 724.2, 724.3, ICD10: M54.41 Sciatica - Patient given instructions use of medications as ordered, intermittent rest, intermittent ice/heat - Follow up with primary care provider or sooner if symptoms persist or worsen - PREDNISONE 10 MG TABLET Mary Jane Neves - Follow-up with your PCP in 3-5 days if symptoms have not improved or sooner if symptoms worsen - Discussed red flags and need for immediate medical evaluation if any occur. - Discussed supportive care treatment with fluids, rest and analgesia. - Discussed expected course of illness TEACHING PROVIDER (Physician/PA/FINANCIAL ANALYST) NOTE OF PERSONAL INVOLVEMENT IN CARE: I have personally seen and examined the patient and performed the medical decision-making components. I have reviewed the Advanced Practice Registered Nurse (FINANCIAL ANALYST) Student's documentation and verified the findings in the note as written. Any additions or changes are noted in bold/italics. Signature: Minerva Easton Date: 07/09/2024 Time: 5:07 PM documented in this encounter [facility] 07-06-2024 Note Patient: Reuben Carreno : 1975 Date: 07/06/24 This 49 y.o. adult presents for No chief complaint on file. Video Visit [facility] [address] [facility] [address] [facility] [id number] Video Visit [facility] 07/06/2024 Tianna Salcido CNP Provider Location: [facility] office Patient Location Home Performance Consultant: None Patient Location: Patient's Home Video Visit Consent Statement: I discussed risks, benefits and alternatives of a video visit telemedicine consultation with the patient (and any accompanying persons) including the risks that the patient's personal health details and medical records will be discussed over real-time, synchronous, interactive video/audio/telecommunication technology, the visit will not be recorded without the express consent of both the provider and the patient, and that there are inherent diagnostic limitations compared to [id number] evaluations. We elected to proceed with the video visit telemedicine consultation. History of Present Illness: His daughter is repeating what he is whispering because he has lost his voice. Started with a cough on Saturday, 7 days ago. Saturday saw the nurse at work. Then went to [facility] was told was viral. Got x-ray to rule out pneumonia. He had wheezing. Was given Tessalon perles. He also took Robitussin. He is producing a lot of phlegm, it is green. (Dry now) Was coughing very often during the night. Maybe 40 times. Saw doctor again because the throat was really irritated. Was online from [facility]. Went back to [facility] on Saturday. Got another x-ray-no pneumonia. Got swabbing for flu A and B and COVID. All were negative. Was given prednisone to help with the throat. Helped with the swelling a little bit. Throat was still sore. Ibuprofen to reduce the swelling. Saturday night was getting fits of coughing. Then had an instance when sat up and started coughing. He passed out for about 10 minutes. He woke up on the floor. He did not know what happened. He then had a headache. He called another nurse line on Saturday morning-[facility]. Was told to go to emergency room. In emergency room was told it was a vagal response. They did not do any tests. He was coughing a lot yesterday, and was prescribed Hycodan. It did not work well the first hours but it did relieve the coughing. He slept better last night. He was still coughing. When he got up today he was confused. He thought the Hycodan was the problem, so he went back to the [facility]. He wanted us to have the complete picture. Coughing is very dry now. Having coughing spells, feels like he could pass out when in a spell. He is coughing less. He missed work Saturday to Saturday last week and today. He still feels unwell. He feels 60% better. Throat a little sore today from coughing. He has had no fevers through this whole thing. No body aches. Headaches, mild, on and off. Gets some green sinus mucus when takes a shower. It is improving. Taking Mucinex He needs a wrk slip for 07/01-. Taking 1 loratadine a day. He is using albuterol inhaler also., Spent 37 minutes with the patient discussing his condition and plan of care. Past Medical/Surgical History: Past Medical History: Diagnosis Date Anxiety Asthma Depression Gender identity disorder, unspecified GERD (gastroesophageal reflux disease) Hiatal hernia 10/16/2022 AFS grade IV, 2 cm type-I sliding Hypertension Hypothyroidism Incontinence of urine Interstitial cystitis Vitamin D deficiency Past Surgical History: Procedure Laterality Date BIOPSY LIVER COLONOSCOPY N/A 04/18/2023 Procedure: COLONOSCOPY; Surgeon: Dago Davis MD; Location: [facility]; Service: General Surgery COLONOSCOPY W/ POLYPECTOMY 2019 [place] COLONOSCOPY W/ POLYPECTOMY 11/10/2011 CYSTO CYSTO EGD N/A 10/16/2022 Procedure: ESOPHAGOGASTRODUODENOSCOPY WITH BIOPSY, ENDO FLIP AND SHEA CHIP PLACEMENT; Surgeon: Dago Davis MD; Location: [facility]; Service: General Surgery MULTIPLE TOOTH EXTRACTIONS 10/25/2022 with cyst excision PROLONGED ACID REFLUX TEST 48H PH N/A 10/16/2022 Procedure: PROLONGED ACID REFLUX TEST 48H PH; Surgeon: Dago Davis MD; Location: [facility]; Service: General Surgery Family History: Family History Problem Relation Age of Onset Cancer Mother Depression Mother Breast cancer Mother Hypertension Father Scoliosis Paternal Grandmother Thyroid disease Sister Arthritis Brother Diabetes Maternal Aunt Diabetes Maternal Uncle Social History: Social History Socioeconomic History Marital status: Tobacco Use Smoking status: Never Passive exposure: Past Smokeless tobacco: Never Vaping Use Vaping status: Never Used Substance and Sexual Activity Alcohol use: Not Currently Drug use: Not Currently Social Drivers of Musical Sneakers (more content not included)... [facility] 07-05-2024 Telephone encounter Note Reason for Call: Patient stated he lost consciousness after a coughing attack from [id number] today, his cough is worse today, and had a head injury resulting in new bruise on his head. Outcome: Patient confirmed he will seek transport to [facility] now and was advised to call 911, if needed. Reason for Disposition Any head or face injury Protocols used: [id number] [facility] 07-05-2024 Miscellaneous Notes Reason for Call: Patient stated he lost consciousness after a coughing attack from [id number] today, his cough is worse today, and had a head injury resulting in new bruise on his head. Outcome: Patient confirmed he will seek transport to [facility] now and was advised to call 911, if needed. Reason for Disposition Any head or face injury Protocols used: [id number] documented in this encounter [facility] 07-04-2024 Note SARS-COV-2 (AGENT OF COVID-19) RNA: Not detected INFLUENZA A RNA: Not detected INFLUENZA B RNA: Not detected RESPIRATORY SYNCYTIAL VIRUS (RSV) RNA: Not detected [facility] Comment on above: Performed By: #### [id number] #### [facility] CLIA [id number] [address] [place] [address] [place] 07-04-2024 Instructions Emely Acuna APRN.CNP - 07/04/2024 11:56 AM EST Tessalon Perles 2 every 8 hours, do not combine this with robitussin or delsym covid rsv and influenza test ordered You will be notified in 12-24 hours, [facility] Rest, increase water intake Tylenol as needed for fever or pain. Salt water gargles, chloraseptic spray or lozenges as needed for sore throat. Warm beverages, honey. Nasal saline spray as needed Cool mist humidifier at night Tylenol (generic acetaminophen) 500 mg-2 tabs every 8 hrs. as needed for fever and aches -Mucinex (generic is fine) Guaifenesin 1200 mg twice daily to help with cough and to thin out mucus * Prednisone 40 mg (2 tablets) per day for 5 days, take in morning or early in day * Do not NSAIDs during this 5 day course (ibuprofen, naproxen, Motrin, Aleve, Advil) Tylenol only during prednisone use * Follow up with primary care provider if no improvement with treatment * Seek medical care immediately, call 911, go to ER if you have chest pain, difficulty breathing, shortness of breath, inability to swallow. documented in this encounter [facility] 07-04-2024 Note HNO ID: [id number] Author: EMELY ACUNA APRN.CNP Service: ? Author Type: Nurse Practitioner Type: Progress Notes Filed: 07/04/2024 11:56 Note Text: Subjective The history is provided by the patient. No carbide powder processor was used. [facility] Reuben Carreno is a 49 year old male who presents today for CC of sore throat, cough, congestion, and runny nose for 4 days. He has used robitussin, tessalon perls, and albuterol with short term relief. He has a h/o of asthma. BP 118/84 Pulse 78 Temp 36.2 ?C (97.1 ?F) (Tympanic) Resp 16 Wt 97.9 kg (215 lb 13.3 oz) SpO2 99% BMI 33.92 kg/m? Social History Tobacco Use Smoking status: Never Passive exposure: Current Smokeless tobacco: Never PAST MEDICAL HISTORY Diagnosis Date Anxiety Asthma Depression GERD (gastroesophageal reflux disease) Hemochromatosis Hypertension I have confirmed and edited as necessary, the [facility] Review of Systems Constitutional: Positive for malaise/fatigue. Negative for chills and fever. HENT: Positive for congestion and sore throat. Negative for ear pain and sinus pain. Respiratory: Positive for cough and wheezing. Negative for sputum production and shortness of breath. Cardiovascular: Negative for chest pain. Gastrointestinal: Negative for abdominal pain, diarrhea, nausea and vomiting. Musculoskeletal: Positive for myalgias. Negative for joint pain. Skin: Negative for itching and rash. Neurological: Negative for headaches. All other systems reviewed and are negative. Objective Physical Exam Vitals and nursing note reviewed. Constitutional: Appearance: He is not toxic-appearing. HENT: Head: Normocephalic and atraumatic. Right Ear: Tympanic membrane, ear canal and external ear normal. Left Ear: Tympanic membrane, ear canal and external ear normal. Nose: No mucosal edema, congestion or rhinorrhea. Right Sinus: No maxillary sinus tenderness or frontal sinus tenderness. Left Sinus: No maxillary sinus tenderness or frontal sinus tenderness. Mouth/Throat: Pharynx: Uvula midline. No oropharyngeal exudate or posterior oropharyngeal erythema. Tonsils: No tonsillar abscesses. Cardiovascular: Rate and Rhythm: Normal rate and regular rhythm. Heart sounds: Normal heart sounds. Pulmonary: Effort: Pulmonary effort is normal. Breath sounds: Wheezing present. No decreased breath sounds, rhonchi or rales. Lymphadenopathy: Head: Right side of head: No submental, submandibular, tonsillar or preauricular adenopathy. Left side of head: No submental, submandibular, tonsillar or preauricular adenopathy. Cervical: No cervical adenopathy. Right cervical: No superficial cervical adenopathy. Left cervical: No superficial cervical adenopathy. Neurological: Mental Status: He is alert. ASSESSMENT/PLAN: 1. URI with cough and congestion - ICD9: 465.9, ICD10: J06.9 (primary diagnosis) - Discussed viral etiology and rationale for treatment. - Symptomatic treatment with prn analgesia - Supportive care with fluids and rest - COVID AND INFLUENZA A/B AND RSV PCR, ROUTINE 2. Flu-like symptoms - ICD9: 780.99, ICD10: R68.89 Tylenol as discussed 3. Wheezing - ICD9: 786.07, ICD10: R06.2 Prednisone 40 mg (2-20mg tablets) po QD for 5 days Continue albuterol Diagnosis and treatment plan were discussed and questions were answered to the patient's satisfaction. Pt acknowledged understanding of concepts and follow up plan. Specific signs and symptoms that would indicate the need for higher level of care were discussed in detail warranting prompt ER evaluation. Emely Acuna APRN.[facility] 07-04-2024 History of Present illness Narrative Subjective The history is provided by the patient. No carbide powder processor was used. HPI Reuben Carreno is a 49 year old male who presents today for CC of sore throat, cough, congestion, and runny nose for 4 days. He has used robitussin, tessalon perls, and albuterol with short term relief. He has a h/o of asthma. BP 118/84 Pulse 78 Temp 36.2 C (97.1 F) (Tympanic) Resp 16 Wt 97.9 kg (215 lb 13.3 oz) SpO2 99% BMI 33.92 kg/m Social History Tobacco Use Smoking status: Never Passive exposure: Current Smokeless tobacco: Never PAST MEDICAL HISTORY Diagnosis Date Anxiety Asthma Depression GERD (gastroesophageal reflux disease) Hemochromatosis Hypertension I have confirmed and edited as necessary, the [facility] Review of Systems Constitutional: Positive for malaise/fatigue. Negative for chills and fever. HENT: Positive for congestion and sore throat. Negative for ear pain and sinus pain. Respiratory: Positive for cough and wheezing. Negative for sputum production and shortness of breath. Cardiovascular: Negative for chest pain. Gastrointestinal: Negative for abdominal pain, diarrhea, nausea and vomiting. Musculoskeletal: Positive for myalgias. Negative for joint pain. Skin: Negative for itching and rash. Neurological: Negative for headaches. All other systems reviewed and are negative. Objective Physical Exam Vitals and nursing note reviewed. Constitutional: Appearance: He is not toxic-appearing. HENT: Head: Normocephalic and atraumatic. Right Ear: Tympanic membrane, ear canal and external ear normal. Left Ear: Tympanic membrane, ear canal and external ear normal. Nose: No mucosal edema, congestion or rhinorrhea. Right Sinus: No maxillary sinus tenderness or frontal sinus tenderness. Left Sinus: No maxillary sinus tenderness or frontal sinus tenderness. Mouth/Throat: Pharynx: Uvula midline. No oropharyngeal exudate or posterior oropharyngeal erythema. Tonsils: No tonsillar abscesses. Cardiovascular: Rate and Rhythm: Normal rate and regular rhythm. Heart sounds: Normal heart sounds. Pulmonary: Effort: Pulmonary effort is normal. Breath sounds: Wheezing present. No decreased breath sounds, rhonchi or rales. Lymphadenopathy: Head: Right side of head: No submental, submandibular, tonsillar or preauricular adenopathy. Left side of head: No submental, submandibular, tonsillar or preauricular adenopathy. Cervical: No cervical adenopathy. Right cervical: No superficial cervical adenopathy. Left cervical: No superficial cervical adenopathy. Neurological: Mental Status: He is alert. ASSESSMENT/PLAN: 1. URI with cough and congestion - ICD9: 465.9, ICD10: J06.9 (primary diagnosis) - Discussed viral etiology and rationale for treatment. - Symptomatic treatment with prn analgesia - Supportive care with fluids and rest - COVID & INFLUENZA A/B & RSV PCR, ROUTINE 2. Flu-like symptoms - ICD9: 780.99, ICD10: R68.89 Tylenol as discussed 3. Wheezing - ICD9: 786.07, ICD10: R06.2 Prednisone 40 mg (2-20mg tablets) po QD for 5 days Continue albuterol Diagnosis and treatment plan were discussed and questions were answered to the patient's satisfaction. Pt acknowledged understanding of concepts and follow up plan. Specific signs and symptoms that would indicate the need for higher level of care were discussed in detail warranting prompt ER evaluation. Emely Acuna APRN.CNP documented in this encounter [facility] 07-02-2024 History of Present illness Narrative Radiology Service Progress Note PATIENT NAME: Reuben Carreno DATE OF SERVICE: July 02, 2024 TIME: 1:50 PM PATIENT IDENTITY VERIFICATION COMPLETED USING TWO (2) IDENTIFIERS: Name and Date of confirmed by patient verbally. FALL SCREENING: Has the patient had 2 falls in the last year or 1 fall with injury or currently using an Ambulatory Assistive Device (Walker, Cane, Wheelchair, Crutches, etc.)? No PATIENT GENDER DATA: Assigned male at PATIENT RELEVANT IMPLANT DATA REVIEWED: Not Applicable PATIENT PRESENTS WITH AN IMPLANTABLE OR ATTACHED CONVENTIONS ASSISTANT: No RADIOLOGY DEPARTMENT: General X-ray: Exam(s) Completed: Chest X-Ray PERIPHERAL IV DATA: Not applicable SIGNED BY: Charlotte Mason July 02, 2024 1:50 PM documented in this encounter [facility] 07-02-2024 Note HNO ID: [id number] Author: CRISSY VALERA Tech Service: ? Author Type: Technologist Type: Progress Notes Filed: 07/02/2024 13:55 Note Text: Radiology Service Progress Note PATIENT NAME: Reuben Carreno DATE OF SERVICE: July 02, 2024 TIME: 1:50 PM PATIENT IDENTITY VERIFICATION COMPLETED USING TWO (2) IDENTIFIERS: Name and Date of confirmed by patient verbally. FALL SCREENING: Has the patient had 2 falls in the last year or 1 fall with injury or currently using an Ambulatory Assistive Device (Walker, Cane, Wheelchair, Crutches, etc.)? No PATIENT GENDER DATA: Assigned male at PATIENT RELEVANT IMPLANT DATA REVIEWED: Not Applicable PATIENT PRESENTS WITH AN IMPLANTABLE OR ATTACHED CONVENTIONS ASSISTANT: No RADIOLOGY DEPARTMENT: General X-ray: Exam(s) Completed: Chest X-Ray PERIPHERAL IV DATA: Not applicable SIGNED BY: Crissy Charlotte Valera July 02, 2024 1:50 PM [facility] 07-02-2024 Note HNO ID: [id number] Author: HOLDEN ROGERS MD Service: ? Author Type: Physician Type: Progress Notes Filed: 07/02/2024 14:11 Note Text: Patient presents with: Cough: X3 days HPI: Coughing for 3 days. His daughter has a cough which is improving. 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 PAST MEDICAL HISTORY Diagnosis Date Anxiety Asthma Depression GERD (gastroesophageal reflux disease) Hemochromatosis Hypertension MEDICATIONS: Current Outpatient Medications Medication Sig FLUoxetine (PROZAC) 20 mg capsule take 1 capsule by mouth IN ADDITION TO TWO 40 MG CAPSULES once da... (REFER TO PRESCRIPTION NOTES). FLUoxetine (PROZAC) 40 mg capsule Take 80 mg by mouth once daily. busPIRone (BUSPAR) 15 mg tablet Take 15 mg by mouth two times a day. prazosin (MINIPRESS) 2 mg cap Take 2 mg by mouth daily at bedtime. finasteride (PROSCAR) 5 mg tablet Take 1 tablet by mouth once daily. ARIPiprazole (ABILIFY) 2 mg tablet Take 2 mg by mouth. esomeprazole magnesium (NEXIUM) 40 mg packet famotidine (PEPCID) 20 mg tablet Take 20 mg by mouth. estradiol (ESTRACE) 2 mg tablet Take by mouth. spironolactone (ALDACTONE) 50 mg tablet Take 50 mg by mouth once daily. hydrOXYzine HCl (ATARAX) 10 mg tablet Take 10 mg by mouth. albuterol HFA (PROVENTIL HFA, VENTOLIN HFA) 90 mcg/actuation inhaler Inhale 2 Puffs as instructed every 4 hours as needed for wheezing/shortness of breath. clonazePAM (KLONOPIN) 0.5 mg tablet Take 0.25 mg by mouth as needed. No current facility-administered medications for this visit. ALLERGIES: ALLERGIES Allergen Reactions Fluvoxamine Other: See Comments Hypertension Nitrofurantoin Posey* Other: See Comments Hypertension Latex, Natural Rubb* Rash Levofloxacin Mental Status Change, Other: See Comments hypertension VITALS: BP 128/86 Pulse 67 Temp 36.8 ?C (98.2 ?F) Resp 18 Wt 98.2 kg (216 lb 7.9 oz) SpO2 99% BMI 34.02 kg/m? PHYSICAL EXAM: GEN: mildly ill appearing HEENT: PERRL, EOMI, conjunctiva clear Ears: canals clear. TMs without erythema, bulge, or effusion Sinuses: non-tender frontal sinus, non-tender maxillary sinuses Throat: moist mucous membranes, mild erythema, no exudate Neck: supple, no thyromegaly, no lymphadenopathy HEART: regular rate, regular rhythm, no murmurs LUNGS: right lower lung wheezes; no crackles, no increased WOB; wipes sputum into tissues while leaning over trash can ASSESSMENT/PLAN: 1. Acute cough - ICD9: 786.2, ICD10: R05.1 - XR CHEST 2V FRONTAL/LAT - negative - suspect viral URI - Discussed supportive care treatment with rest, cold medicine, and analgesia. - BENZONATATE 100 MG CAPSULE Follow up with worsening cough, worsening shortness of breath, increasing chest pain, or late onset fever. Holden Rogers MD [facility] 07-02-2024 History of Present illness Narrative Patient presents with: Cough: X3 days HPI: Coughing for 3 days. His daughter has a cough which is improving. 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 PAST MEDICAL HISTORY Diagnosis Date Anxiety Asthma Depression GERD (gastroesophageal reflux disease) Hemochromatosis Hypertension MEDICATIONS: Current Outpatient Medications Medication Sig FLUoxetine (PROZAC) 20 mg capsule take 1 capsule by mouth IN ADDITION TO TWO 40 MG CAPSULES once da... (REFER TO PRESCRIPTION NOTES). FLUoxetine (PROZAC) 40 mg capsule Take 80 mg by mouth once daily. busPIRone (BUSPAR) 15 mg tablet Take 15 mg by mouth two times a day. prazosin (MINIPRESS) 2 mg cap Take 2 mg by mouth daily at bedtime. finasteride (PROSCAR) 5 mg tablet Take 1 tablet by mouth once daily. ARIPiprazole (ABILIFY) 2 mg tablet Take 2 mg by mouth. esomeprazole magnesium (NEXIUM) 40 mg packet famotidine (PEPCID) 20 mg tablet Take 20 mg by mouth. estradiol (ESTRACE) 2 mg tablet Take by mouth. spironolactone (ALDACTONE) 50 mg tablet Take 50 mg by mouth once daily. hydrOXYzine HCl (ATARAX) 10 mg tablet Take 10 mg by mouth. albuterol HFA (PROVENTIL HFA, VENTOLIN HFA) 90 mcg/actuation inhaler Inhale 2 Puffs as instructed every 4 hours as needed for wheezing/shortness of breath. clonazePAM (KLONOPIN) 0.5 mg tablet Take 0.25 mg by mouth as needed. No current facility-administered medications for this visit. ALLERGIES: ALLERGIES Allergen Reactions Fluvoxamine Other: See Comments Hypertension Nitrofurantoin Posey* Other: See Comments Hypertension Latex, Natural Rubb* Rash Levofloxacin Mental Status Change, Other: See Comments hypertension VITALS: BP 128/86 Pulse 67 Temp 36.8 C (98.2 F) Resp 18 Wt 98.2 kg (216 lb 7.9 oz) SpO2 99% BMI 34.02 kg/m PHYSICAL EXAM: GEN: mildly ill appearing HEENT: PERRL, EOMI, conjunctiva clear Ears: canals clear. TMs without erythema, bulge, or effusion Sinuses: non-tender frontal sinus, non-tender maxillary sinuses Throat: moist mucous membranes, mild erythema, no exudate Neck: supple, no thyromegaly, no lymphadenopathy HEART: regular rate, regular rhythm, no murmurs LUNGS: right lower lung wheezes; no crackles, no increased WOB; wipes sputum into tissues while leaning over trash can ASSESSMENT/PLAN: 1. Acute cough - ICD9: 786.2, ICD10: R05.1 - XR CHEST 2V FRONTAL/LAT - negative - suspect viral URI - Discussed supportive care treatment with rest, cold medicine, and analgesia. - BENZONATATE 100 MG CAPSULE Follow up with worsening cough, worsening shortness of breath, increasing chest pain, or late onset fever. Holden Rogers MD documented in this encounter [facility] 06-17-2024 History of Present illness Narrative Radiology Service Progress Note PATIENT NAME: Reuben Carreno DATE OF SERVICE: June 17, 2024 TIME: 2:23 PM PATIENT IDENTITY VERIFICATION COMPLETED USING TWO (2) IDENTIFIERS: Name and Date of confirmed by patient verbally. FALL SCREENING: Has the patient had 2 falls in the last year or 1 fall with injury or currently using an Ambulatory Assistive Device (Walker, Cane, Wheelchair, Crutches, etc.)? No PATIENT GENDER DATA: Assigned male at PATIENT RELEVANT IMPLANT DATA REVIEWED: Not Applicable PATIENT PRESENTS WITH AN IMPLANTABLE OR ATTACHED CONVENTIONS ASSISTANT: No RADIOLOGY DEPARTMENT: General X-ray: Exam(s) Completed: Chest X-Ray PERIPHERAL IV DATA: Not applicable SIGNED BY: Charlotte Mason June 17, 2024 2:23 PM documented in this encounter [facility] 06-17-2024 Note HNO ID: [id number] Author: CRISSY VALERA Tech Service: ? Author Type: Technologist Type: Progress Notes Filed: 06/17/2024 14:30 Note Text: Radiology Service Progress Note PATIENT NAME: Reuben Carreno DATE OF SERVICE: June 17, 2024 TIME: 2:23 PM PATIENT IDENTITY VERIFICATION COMPLETED USING TWO (2) IDENTIFIERS: Name and Date of confirmed by patient verbally. FALL SCREENING: Has the patient had 2 falls in the last year or 1 fall with injury or currently using an Ambulatory Assistive Device (Walker, Cane, Wheelchair, Crutches, etc.)? No PATIENT GENDER DATA: Assigned male at PATIENT RELEVANT IMPLANT DATA REVIEWED: Not Applicable PATIENT PRESENTS WITH AN IMPLANTABLE OR ATTACHED CONVENTIONS ASSISTANT: No RADIOLOGY DEPARTMENT: General X-ray: Exam(s) Completed: Chest X-Ray PERIPHERAL IV DATA: Not applicable SIGNED BY: Charlotte Mason June 17, 2024 2:23 PM [facility] 06-17-2024 Note HNO ID: [id number] Author: MYESHA ORTIZ APRN.CNP Service: ? Author Type: Nurse Practitioner Type: Progress Notes Filed: 06/17/2024 14:48 Note Text: Subjective HPI HPI Reuben Carreno is a 49 year old male who presents today for CC of cough, congestion, fever. This started 5 days ago. Has tried otc medication for relief. Symptoms are worsened by nothing. Risk factors sick exposures. Hx of asthma. Nonsmoker. Seen by 2 other providers, told viral. .Patient presents with: Cough: Chest congestion, sob x 5 days No past medical history on file. No past surgical history on file. ALLERGIES Fluvoxamine; Nitrofurantoin Monohyd/M-Cryst; Latex, Natural Rubber; and Levofloxacin MEDICATIONS FLUoxetine (PROZAC) 20 mg capsule take 1 capsule by mouth IN ADDITION TO TWO 40 MG CAPSULES once da... (REFER TO PRESCRIPTION NOTES). FLUoxetine (PROZAC) 40 mg capsule Take 80 mg by mouth once daily. busPIRone (BUSPAR) 15 mg tablet Take 15 mg by mouth two times a day. prazosin (MINIPRESS) 2 mg cap Take 2 mg by mouth daily at bedtime. finasteride (PROSCAR) 5 mg tablet Take 1 tablet by mouth once daily. ARIPiprazole (ABILIFY) 2 mg tablet Take 2 mg by mouth. esomeprazole magnesium (NEXIUM) 40 mg packet famotidine (PEPCID) 20 mg tablet Take 20 mg by mouth. estradiol (ESTRACE) 2 mg tablet Take by mouth. spironolactone (ALDACTONE) 50 mg tablet Take 50 mg by mouth once daily. hydrOXYzine HCl (ATARAX) 10 mg tablet Take 10 mg by mouth. clonazePAM (KLONOPIN) 0.5 mg tablet Take 0.25 mg by mouth as needed. REXULTI 1 mg tablet Take 1 tablet by mouth once daily. vortioxetine (TRINTELLIX) 20 mg tab Take 20 mg by mouth once daily. L-Methylfolate 15 mg tab Take 1 tablet by mouth once daily. ranitidine (ZANTAC) 150 mg tablet Take 150 mg by mouth daily at bedtime. polyethylene glycol 3350 (MIRALAX) 17 gram/dose powder Take by mouth at bedtime as needed. cholecalciferol (VITAMIN D3) 5,000 unit tab Take 5,000 Units by mouth once daily. No family history on file. Social History Tobacco Use Smoking status: Never Passive exposure: Current Smokeless tobacco: Never Review of Systems Constitutional: Positive for fever. HENT: Positive for congestion. Negative for ear pain, nosebleeds and sore throat. Respiratory: Positive for cough. Negative for shortness of breath and wheezing. Musculoskeletal: Negative for neck pain. Skin: Negative for itching and rash. Objective .Blood pressure 148/100, pulse 78, temperature 36.8 ?C (98.2 ?F), resp. rate 20, weight 95.2 kg (209 lb 14.1 oz), SpO2 98%. Physical Exam Constitutional: General: He is not in acute distress. Appearance: He is not toxic-appearing or diaphoretic. HENT: Head: Normocephalic and atraumatic. Cardiovascular: Rate and Rhythm: Normal rate and regular rhythm. Heart sounds: Normal heart sounds, S1 normal and S2 normal. Pulmonary: Effort: Pulmonary effort is normal. Breath sounds: Normal breath sounds. Lymphadenopathy: Cervical: No cervical adenopathy. Right cervical: No superficial cervical adenopathy. Left cervical: No superficial cervical adenopathy. Neurological: Mental Status: He is alert and oriented to person, place, and time. Gait: Gait is intact. ASSESSMENT/PLAN: 1. URI, acute - ICD9: 465.9, ICD10: J06.9 (primary diagnosis) - Discussed viral etiology and rationale for treatment. - Symptomatic treatment with prn analgesia - Supportive care with fluids and rest - Follow up in 3-5 days if symptoms persist or sooner if worsening of symptoms - ALBUTEROL SULFATE HFA 90 MCG/ACTUATION AEROSOL INHALER 2. Acute cough - ICD9: 786.2, ICD10: R05.1 - XR CHEST 2V FRONTAL/LAT IMPRESSION: No acute radiographic abnormality. Dictated by : BRAYAN LILLY DO 3. History of asthma - ICD9: V12.69, ICD10: Z87.09 - ALBUTEROL SULFATE HFA 90 MCG/ACTUATION AEROSOL INHALER Myesha Ortiz APRN.[facility] 06-17-2024 History of Present illness Narrative Subjective HPI HPI Reuben Carreno is a 49 year old male who presents today for CC of cough, congestion, fever. This started 5 days ago. Has tried otc medication for relief. Symptoms are worsened by nothing. Risk factors sick exposures. Hx of asthma. Nonsmoker. Seen by 2 other providers, told viral. .Patient presents with: Cough: Chest congestion, sob x 5 days No past medical history on file. No past surgical history on file. ALLERGIES Fluvoxamine; Nitrofurantoin Monohyd/M-Cryst; Latex, Natural Rubber; and Levofloxacin MEDICATIONS FLUoxetine (PROZAC) 20 mg capsule take 1 capsule by mouth IN ADDITION TO TWO 40 MG CAPSULES once da... (REFER TO PRESCRIPTION NOTES). FLUoxetine (PROZAC) 40 mg capsule Take 80 mg by mouth once daily. busPIRone (BUSPAR) 15 mg tablet Take 15 mg by mouth two times a day. prazosin (MINIPRESS) 2 mg cap Take 2 mg by mouth daily at bedtime. finasteride (PROSCAR) 5 mg tablet Take 1 tablet by mouth once daily. ARIPiprazole (ABILIFY) 2 mg tablet Take 2 mg by mouth. esomeprazole magnesium (NEXIUM) 40 mg packet famotidine (PEPCID) 20 mg tablet Take 20 mg by mouth. estradiol (ESTRACE) 2 mg tablet Take by mouth. spironolactone (ALDACTONE) 50 mg tablet Take 50 mg by mouth once daily. hydrOXYzine HCl (ATARAX) 10 mg tablet Take 10 mg by mouth. clonazePAM (KLONOPIN) 0.5 mg tablet Take 0.25 mg by mouth as needed. REXULTI 1 mg tablet Take 1 tablet by mouth once daily. vortioxetine (TRINTELLIX) 20 mg tab Take 20 mg by mouth once daily. L-Methylfolate 15 mg tab Take 1 tablet by mouth once daily. ranitidine (ZANTAC) 150 mg tablet Take 150 mg by mouth daily at bedtime. polyethylene glycol 3350 (MIRALAX) 17 gram/dose powder Take by mouth at bedtime as needed. cholecalciferol (VITAMIN D3) 5,000 unit tab Take 5,000 Units by mouth once daily. No family history on file. Social History Tobacco Use Smoking status: Never Passive exposure: Current Smokeless tobacco: Never Review of Systems Constitutional: Positive for fever. HENT: Positive for congestion. Negative for ear pain, nosebleeds and sore throat. Respiratory: Positive for cough. Negative for shortness of breath and wheezing. Musculoskeletal: Negative for neck pain. Skin: Negative for itching and rash. Objective .Blood pressure 148/100, pulse 78, temperature 36.8 C (98.2 F), resp. rate 20, weight 95.2 kg (209 lb 14.1 oz), SpO2 98%. Physical Exam Constitutional: General: He is not in acute distress. Appearance: He is not toxic-appearing or diaphoretic. HENT: Head: Normocephalic and atraumatic. Cardiovascular: Rate and Rhythm: Normal rate and regular rhythm. Heart sounds: Normal heart sounds, S1 normal and S2 normal. Pulmonary: Effort: Pulmonary effort is normal. Breath sounds: Normal breath sounds. Lymphadenopathy: Cervical: No cervical adenopathy. Right cervical: No superficial cervical adenopathy. Left cervical: No superficial cervical adenopathy. Neurological: Mental Status: He is alert and oriented to person, place, and time. Gait: Gait is intact. ASSESSMENT/PLAN: 1. URI, acute - ICD9: 465.9, ICD10: J06.9 (primary diagnosis) - Discussed viral etiology and rationale for treatment. - Symptomatic treatment with prn analgesia - Supportive care with fluids and rest - Follow up in 3-5 days if symptoms persist or sooner if worsening of symptoms - ALBUTEROL SULFATE HFA 90 MCG/ACTUATION AEROSOL INHALER 2. Acute cough - ICD9: 786.2, ICD10: R05.1 - XR CHEST 2V FRONTAL/LAT IMPRESSION: No acute radiographic abnormality. Dictated by : BRAYAN LILLY DO 3. History of asthma - ICD9: V12.69, ICD10: Z87.09 - ALBUTEROL SULFATE HFA 90 MCG/ACTUATION AEROSOL INHALER Myesha Ortiz APRN.[employer] documented in this encounter [facility] 06-15-2024 Note Patient: Reuben Carreno : 1975 Date: 06/15/24 This 49 y.o. male presents for Generalized Body Aches (Non productive cough, body aches, and headache, dizziness since Saturday. /Patient has been exposed to sickness from employees at work) History of Present Illness: Started Abilify on Saturday last week. Did not feel good that night. Was waking up every 2-3 hours. On Saturday, had body aches. (2 days ago) Coughing and headache. Temp was 100 on forehead. Body felt really bad. Slept most of the day. Fluoxetine was increased to 100mg. Buspar was added 10mg twice daily, then to 15 bid. Rubi Vizcarra from [facility], prescribes. He has called their office back to talk about his symptoms. This morning just took 40mg of fluoxetine. Concern about possible serotonin syndrome. Had chills and some blurred vision. Mental fog. Some balance issues today. Not spinning. This morning woke up coughing, very tired. He did not take the Buspar today. Several co-workers are off work ill. He did home COVID and Flu A&B tests Saturday, all negative. Cough is dry. Today less coughing. Little phlegm on Saturday. Headache improved but coming back now. Yesterday it did not let up. Has not taken anything for it. Mild headache now. Like a 10 Body aches still there but now much less. Like 1-2 Off work today-needs slip He is requesting to have his glucose checked. He is prediabetic and is afraid that an elevated glucose could be causing his symptoms. Past Medical/Surgical History: Past Medical History: Diagnosis Date Anxiety Asthma Depression Gender identity disorder, unspecified GERD (gastroesophageal reflux disease) Hiatal hernia 10/16/2022 AFS grade IV, 2 cm type-I sliding Hypertension Hypothyroidism Incontinence of urine Interstitial cystitis Vitamin D deficiency Past Surgical History: Procedure Laterality Date BIOPSY LIVER COLONOSCOPY N/A 04/18/2023 Procedure: COLONOSCOPY; Surgeon: Dago Davis MD; Location: [facility]; Service: General Surgery COLONOSCOPY W/ POLYPECTOMY 2019 [place] COLONOSCOPY W/ POLYPECTOMY 11/10/2011 CYSTO CYSTO EGD N/A 10/16/2022 Procedure: ESOPHAGOGASTRODUODENOSCOPY WITH BIOPSY, ENDO FLIP AND SHEA CHIP PLACEMENT; Surgeon: Dago Davis MD; Location: [facility]; Service: General Surgery MULTIPLE TOOTH EXTRACTIONS 10/25/2022 with cyst excision PROLONGED ACID REFLUX TEST 48H PH N/A 10/16/2022 Procedure: PROLONGED ACID REFLUX TEST 48H PH; Surgeon: Dago Davis MD; Location: [facility]; Service: General Surgery Family History: Family History Problem Relation Age of Onset Cancer Mother Depression Mother Breast cancer Mother Hypertension Father Scoliosis Paternal Grandmother Thyroid disease Sister Arthritis Brother Diabetes Maternal Aunt Diabetes Maternal Uncle Social History: Social History Socioeconomic History Marital status: Tobacco Use Smoking status: Never Passive exposure: Past Smokeless tobacco: Never Vaping Use Vaping status: Never Used Substance and Sexual Activity Alcohol use: Not Currently Drug use: Not Currently Social Drivers of Health Financial Resource Strain: Low Risk (06/15/2024) Overall Financial Resource Strain (CARDIA) Difficulty of Paying Living Expenses: Not very hard Food Insecurity: No Food Insecurity (06/15/2024) Hunger Vital Sign Worried About Running Out of Food in the Last Year: Never true Ran Out of Food in the Last Year: Never true Transportation Needs: No Transportation Needs (06/15/2024) PRAPARE - Transportation Lack of Transportation (Medical): No Lack of Transportation (Non-Medical): No Physical Activity: Sufficiently Active (06/15/2024) Exercise Vital Sign Days of Exercise per Week: 3 days Minutes of Exercise per Session: 60 min Stress: No Stress Concern Present (06/15/2024) [employer] [place] [employer] - Occupational Stress Questionnaire Feeling of Stress : Not at all Social Connections: Moderately Integrated (06/15/2024) Social Connection and Isolation Panel [NHANES] Frequency of Communication with Friends and Family: Twice a week Frequency of Social Gatherings with Friends and Family: Twice a week Attends Synagogue Services: More than 4 times per year Active Member of Clubs or Organizations: No Attends Club or Organization Meetings: 1 to 4 times per year Marital Status: Never Housing Stability: Unknown (06/15/2024) Housing Stability Vital Sign Unable to Pay for Housing in the Last Year: No Homeless in the Last Year: No Allergies: Allergies Allergen Reactions Levaquin [Levofloxacin] Anxiety Latex, Natural Rubber Rash Medications: Current Outpatient Medications Medication Sig Dispense Refill albuterol 90 mcg/actuation inhaler Inhale 2 (two) puffs every 6 (six) hours as needed . 18 g 3 ARIPiprazole (ABILIFY) 2 MG tablet Take 1 (one) tablet (2 mg tota (more content not included)... [facility] 04-13-2024 History of Present illness Narrative Radiology Service Progress Note PATIENT NAME: Reuben Carreno DATE OF SERVICE: April 13, 2024 TIME: 4:22 PM PATIENT IDENTITY VERIFICATION COMPLETED USING TWO (2) IDENTIFIERS: Name and Date of confirmed by patient verbally. FALL SCREENING: Has the patient had 2 falls in the last year or 1 fall with injury or currently using an Ambulatory Assistive Device (Walker, Cane, Wheelchair, Crutches, etc.)? No PATIENT GENDER DATA: Male PATIENT RELEVANT IMPLANT DATA REVIEWED: Not Applicable PATIENT PRESENTS WITH AN IMPLANTABLE OR ATTACHED CONVENTIONS ASSISTANT: No RADIOLOGY DEPARTMENT: Mammography PERIPHERAL IV DATA: Not applicable SIGNED BY: RT Peggy(R) April 13, 2024 4:22 PM documented in this encounter [facility] 04-13-2024 Note HNO ID: [id number] Author: CAMILA EMERY RT(R) Service: ? Author Type: Technologist Type: Progress Notes Filed: 04/13/2024 16:22 Note Text: Radiology Service Progress Note PATIENT NAME: Reuben Carreno DATE OF SERVICE: April 13, 2024 TIME: 4:22 PM PATIENT IDENTITY VERIFICATION COMPLETED USING TWO (2) IDENTIFIERS: Name and Date of confirmed by patient verbally. FALL SCREENING: Has the patient had 2 falls in the last year or 1 fall with injury or currently using an Ambulatory Assistive Device (Walker, Cane, Wheelchair, Crutches, etc.)? No PATIENT GENDER DATA: Male PATIENT RELEVANT IMPLANT DATA REVIEWED: Not Applicable PATIENT PRESENTS WITH AN IMPLANTABLE OR ATTACHED CONVENTIONS ASSISTANT: No RADIOLOGY DEPARTMENT: Mammography PERIPHERAL IV DATA: Not applicable SIGNED BY: RT Peggy(R) April 13, 2024 4:22 PM [facility] 12-11-2023 Note OFFICE VISIT JEREMY Hobbs NOTE Here today for Muscle Pain (Generalized/) HPI Reuben is here today complaining of generalized muscle pain This has been going on for about 2 weeks He was working harder when it started Has pain in upper arms, all of legs, back mouth Pain is a bit better than 2 weeks ago But still has pain Can't sleep at night due to the pain Hard to hold cell phone to his ear without pain If he starts moving it gets a bit better but then it gets worse when he stops Not used any meds for this No viral symptom, like fever or sore throat or runny nose Does have fatigue Feels weak He continues to be followed by clinic in [place] for his gender dysphoria Currently taking Estradiol 2 mg daily, finasteride 5 mg daily, spironolactone 50 mg daily last seen in a telemedicine visit on 11/20/2023 Weight has gone down slightly Mentioned a couple weeks ago he was cutting his toenail and he got little bit of bleeding Is also had little bit of change in his bowels to where his stool was more claylike he was advised to try some fiber in the diet Currently also being seen by behavioral health He is on fluoxetine 40 mg Prazosin 2 mg BuSpar, this is the newest 1 and it does have musculoskeletal pain up to 10% of the people that are on this Clonazepam He was on Abilify, and Senia Had blood work done in 2019 including an PHILLIP panel, sed rate, rheumatoid factor which were all negative The following portions of the patient's history were reviewed and updated as appropriate: allergies, current medications and problem list. The patient's surgical, family, and social history was reviewed and updated as appropriate. Review of Systems Review of Systems Constitutional: Positive for appetite change (decreased) and fatigue. HENT: Negative for rhinorrhea, sinus pressure, sinus pain and sore throat. Eyes: Negative for visual disturbance. Respiratory: Positive for cough (occ). Negative for shortness of breath and wheezing. Cardiovascular: Negative for chest pain. Gastrointestinal: Positive for constipation. Negative for abdominal pain, diarrhea, nausea and vomiting. Musculoskeletal: Positive for myalgias. Negative for arthralgias. Neurological: Positive for light-headedness and headaches. Psychiatric/Behavioral: Positive for sleep disturbance. Anxiety and depression Vitals: 12/11/23 0844 BP: 113/76 BP Location: Left arm Patient Position: Sitting BP Cuff Size: X-large Adult Pulse: 65 Temp: 98.1 degrees F (36.7 degrees C) TempSrc: Infrared SpO2: 97% Weight: 94.1 kg (207 lb 6.4 oz) Height: 5' 7 BP Readings from Last 3 Encounters: 12/11/23 113/76 08/01/23 114/73 06/14/23 107/72 Wt Readings from Last 3 Encounters: 12/11/23 94.1 kg (207 lb 6.4 oz) 08/01/23 93.3 kg (205 lb 11.2 oz) 06/14/23 96.4 kg (212 lb 8 oz) Body mass index is 32.48 kg/m . Physical Exam Reuben Carerno Is a 48 y.o.. adult. Alert and oriented to person, time and place In No Acute Distress Constitutional: Appearance: Looks tired HEENT: Head; normocephalic Right Ear: Tympanic Membrane and external ear normal, Left Ear: Tympanic Membrane and external ear normal, Right eye: Conjunctiva/sclera normal Left eye: conjunctiva/sclera normal Pupils: Pupils are equal, round, and reactive to light, Extra occular motion is Intact Nose: clear, turbinates are normal Mouth/Throat: clear, Mucus Membranes are Moist, tonsils not enlarged, Pharynx: Uvula is midline, Posterior Pharynx is not injected Neck: soft and supple, FROM, no lymphadenopathy or masses No thyromegaly Cardiovascular Rate and Rhythm: Normal rate and regular rhythm: Heart sounds: Normal heart sounds, S1 normal, S2 normal Pulses: Radial pulses: normal and equal Pulmonary: Pulmonary effort is normal. No Respiratory Distress: Breath sounds are normal, no wheezing Back: no CVA tenderness Abdominal: Palpation: soft and non tender Normal bowel sounds No guarding or rebound Musculoskeletal: Normal ROM He has full range of motion and all of the joints he is nontender to palpation over the muscles May be a little bit of tenderness over the head of the biceps tendon bilaterally Lower extremities: no edema, Skin: is warm and dry, no rashes no erythema or warmth to palpation Neuro: No focal deficits Psych: behavior is normal, mood and affect are normal Assessment/Plan Problem List Items Addressed This Visit None Visit Diagnoses Myalgia - Primary Relevant Orders TSH with Reflex Free T4 CRP, Inflammation Rheumatoid factor CCP Antibody PHILLIP Sedimentation Rate CBC and Differential Vitamin D, Total, 25-OH Hemoglobin A1c Outreach Urinalysis w/ Reflex Culture Fatigue, unspecified type get blood work done try tylenol mild exercise Relevant Orders TSH with Reflex Free T4 CRP, Inflammation Rheumatoid factor CCP Antibody PHILLIP Sedimentation Rate CBC and Differential (more content not included)... [facility] 08-23-2023 History of Present illness Narrative Images from the original note were not included. Chief Complaint / HPI: Chief Complaint Patient presents with Gender Affirming Hormone Therapy Pt here for GAC follow-up, pt only taking pool, wants to discuss restarting estradiol. Pt declined STI/HIV testing. HPI Problems Assessed, Plan, Orders & Medical Decision Making 1. Gender dysphoria (Primary) Overview: Initial started estrogen and spironolactone (01/20/2020), patient discontinued GAC 02/2020. Dysphoria, body hair, facial hair, masculine facial appearance, genitals Mental Health: Psychologist is Nora Wakefield ,and Simran Viveros: last visit was April 2021, stopped visits due to cost. Psychiatrist Dr. Jc Frazier Every 3 months. (08/01/2021) Restart Estradiol & spironolactone (05/23/2022) Increase spironolactone 75mg daily, continue Estradiol (03/19/2023) Started Finasteride 5mg daily for patient reported hair thinning Assessment & Plan: Gender Affirming Care - Follow-Up Visit: Name Reuben Gender Identity questioning Pronouns he 08/21/2023 1:07 PM 2023 11:59 PM [facility] Prescribed estradiol Take 4mg in the AM and 2mg in the PM by mouth daily (2 mg tab)-Discontinued (THERAPY COMP) spironolactone 50 mg Daily oral 25 mg Daily oral-Discontinued (DOSE CHANGE) 50 mg Daily oral Medication marked as long-term Multiple values from one day are sorted in reverse-chronological order Side effects? none Adherence? Taking 4mg in the evening, not taking AM estradiol Not missed spironolactone dose Days in dosing cycle (if inj) 3 Energy - Mood Okay energy / mood is stable feeling good Body Hair Skin is softer, facial an body less course and softer Fat re-distribution yes Breast Development Tenderness, sensitive, some days, some growth since last visit. Erectile function a couple of times Scalp hair changes No changes Last Estradiol 11/13/2022: 63.1 01/31/2023: 71.8 08/01/2023: 29.8 Last Testosterone 11/13/2022: 116 01/31/2023: 38 08/01/2023: 549 Last Potassium 11/13/2022: 4.1 01/31/2023: 4.3 08/01/2023: 3.9 Assessment: improving with treatment patient virtual today and states that since not taking Estradiol hasn't been able to work normal, patient states felt better emotionally when taking estradiol and would like to restart low dose today. Patient is still working in [place], family is now living with patient in [facility], and daughter/family are not supportive, patient feels trapped between self and family. We discussed restarting estradiol low dose and or increasing spironolactone, patient would like to restart Estrace for now. Plan: Continue same management plan Continue meds as previously prescribed Order labs Restart Estradiol 2 mg daily Cont spironolactone to 50mg daily Follow up and labs in 3 months Orders: - spironolactone (ALDACTONE) 50 mg tablet; Take 1 Tablet by mouth once daily, Disp-30 Tablet, R-6 e-Prescribing, Long-term Dispense: 30 Tablet; Refill: 6 - finasteride (PROSCAR) 5 mg tablet; Take 1 Tablet by mouth once daily, Disp-30 Tablet, R-3 e-Prescribing, Long-term Dispense: 30 Tablet; Refill: 3 - COMPREHENSIVE METABOLIC PANEL; Future - ASSAY OF TESTOSTERONE TOTAL; Future - ASSAY OF TOTAL ESTRADIOL; Future 2. Hair thinning - finasteride (PROSCAR) 5 mg tablet; Take 1 Tablet by mouth once daily, Disp-30 Tablet, R-3 e-Prescribing, Long-term Dispense: 30 Tablet; Refill: 3 Depression Screening: PHQ2 Score (!) 2 at 08/23/2023 7:27 AM PHQ-9 Total Score (Auto Calculated) 6 at 08/23/2023 7:27 AM Depression Severity: Mild at 08/23/2023 7:27 AM Plan: Depression follow up provided: Counseling / education in visit BMI Readings from Last 3 Encounters: 01/19/22 29.85 kg/m 01/20/20 29.29 kg/m BMI follow up plan for 18+: Did not address today OR patient will address with their PCP BMI is not an accurate reflection of overall health status and is a problematic measurement for many reasons. The BMI was intended to be a statistical population measure, not an individual health metric and is rooted in normative and racist ideals of body size. We discussed other metabolic indicators of health. Staying committed to physical activity and mindfulness, including mindful eating, can improve or maintain overall well-being and mood. Follow-up Instructions Return in about 2 months (around 10/23/2023) for GAC F/u, 10wks, Office Visit, labs 1 wk before f/u. Check-out Note: GAC F/u, 10wks, Office Visit, labs 1 wk before f/u No future appointments. ROS & Physical Exam Review of Systems Constitutional: Negative for fatigue and unexpected weight change. Respiratory: Negative for cough, chest tightness and shortness of breath. Cardiovascular: Negative for chest pain, palpitations and leg swelling. Gastrointestinal: Negative for nausea and vomiting. Skin: Negative for rash. Neurological: Negative for dizziness, light-headedness and headaches. Psychiatric/Behavioral: Positive for dysphoric mood. Negative for self-injury and suicidal ideas. All other systems reviewed and are negative. Physical Exam Constitutional: General: He is not in acute distress. Appearance: Normal appearance. Pulmonary: Effort: Pulmonary effort is normal. Neurological: Mental Status: He is alert. Psychiatric: Attention and Perception: Attention normal. Mood and Affect: Affect is flat. Speech: Speech normal. Behavior: Behavior normal. Thought Content: Thought content normal. I spent the following time reviewing the patient's chart, seeing the patient, and documenting in the record on this day of the visit: Rooming Note: Reuben presents to [facility] today for Gender Affirming Hormone Therapy (Pt here for GAC follow-up, pt only taking pool, wants to discuss restarting estradiol. Pt declined STI/HIV testing. ) Since Last Visit? Been to an Urgent Care, ER or Hospital? No Seen any other providers / specialists? Psych Received any vaccines? No Had any tests, like a Xray, mammogram or colonoscopy? No Vaccines Recommended Today: Health Maintenance Due Topic Date Due Imm-Hepatitis B (1 of 3 - 19+ 3-dose series) Never done Imm-Zoster, Recombinant (1 of 2) Never done SBIRT 08/23/2023 7:27 AM How many times in the past year have you had 4 or more drinks in a day? NONE How many times in the past year have you used a recreational drug or used a prescription medication for nonmedical reasons? NONE Little interest or pleasure in doing things Several days Feeling down, depressed or hopeless [include irritable if under 18] Several days PHQ2 Score (!) 2 Little interest or pleasure in doing things Several days Feeling down, depressed or hopeless [include irritable if under 18] Several days Trouble falling or staying asleep, or sleeping too much Several days Feeling tired or having little energy Several days Poor appetite or overeating Not at all Feeling bad about yourself - or that you are a failure or have let yourself or your family down Not at all Trouble concentrating on things like school work, reading or watching TV? Several days Moving or speaking so slowly that other people could have noticed? Or the opposite - being so fidgety or restless that you have been moving around a lot more than usual Not at all Thoughts you would be better off or of hurting yourself in some way (!) Several days If you checked off any problems, how difficult have these problems made it for you to do your work, take care of things at home, or get along with other people? Somewhat difficult PHQ-9 Total Score (Auto Calculated) 6 Depression Severity: Mild No data to display PHQ-9 Total Score (Auto Calculated) 6 at 08/23/2023 7:27 AM DAVID-7 No data to display Health Maintenance Due Topic Date Due Lipid Screening Never done HIV Screening Never done Imm-Hepatitis B (1 of 3 - 19+ 3-dose series) Never done Hypertension Screening (1) Never done Imm-Zoster, Recombinant (1 of 2) Never done Goals as of 08/23/2023 at 7:29 AM None Patient Active Problem List Diagnosis Hemochromatosis Panic disorder with agoraphobia Obsessive-compulsive disorder Generalized anxiety disorder MDD (major depressive disorder) Gender dysphoria Tele-Health Visit The patient's identity was verified at the start of the encounter. The patient and/or their guardian have given their verbal consent to this tele-health visit. This visit took place via tele-health video visit The patient's location is at work Additional persons on the call: no one Flight Operations Dispatch Clerk used/present: No. HIV testing offered: Yes STI testing offered: Yes Associated Problem(s): Gender dysphoria Images from the original note were not included. Gender Affirming Care - Follow-Up Visit: Name Reuben Gender Identity questioning Pronouns he 08/21/2023 1:07 PM 2023 11:59 PM [facility] Prescribed estradiol Take 4mg in the AM and 2mg in the PM by mouth daily (2 mg tab)-Discontinued (THERAPY COMP) spironolactone 50 mg Daily oral 25 mg Daily oral-Discontinued (DOSE CHANGE) 50 mg Daily oral Medication marked as long-term Multiple values from one day are sorted in reverse-chronological order Side effects? none Adherence? Taking 4mg in the evening, not taking AM estradiol Not missed spironolactone dose Days in dosing cycle (if inj) 3 Energy - Mood Okay energy / mood is stable feeling good Body Hair Skin is softer, facial an body less course and softer Fat re-distribution yes Breast Development Tenderness, sensitive, some days, some growth since last visit. Erectile function a couple of times Scalp hair changes No changes Last Estradiol 11/13/2022: 63.1 01/31/2023: 71.8 08/01/2023: 29.8 Last Testosterone 11/13/2022: 116 01/31/2023: 38 08/01/2023: 549 Last Potassium 11/13/2022: 4.1 01/31/2023: 4.3 08/01/2023: 3.9 Assessment: improving with treatment patient virtual today and states that since not taking Estradiol hasn't been able to work normal, patient states felt better emotionally when taking estradiol and would like to restart low dose today. Patient is still working in [place], family is now living with patient in [facility], and daughter/family are not supportive, patient feels trapped between self and family. We discussed restarting estradiol low dose and or increasing spironolactone, patient would like to restart Estrace for now. Plan: Continue same management plan Continue meds as previously prescribed Order labs Restart Estradiol 2 mg daily Cont spironolactone to 50mg daily Follow up and labs in 3 months documented in this encounter TouchMail Phone: 08-21-2023 Miscellaneous Notes Healthy Eating 101 Overall goals: Increased vegetable and fruit intake; Consumption of foods that are high in fiber; Consumption of whole-grain foods; Increased water intake; Decreased intake of dietary sugar (eg, sugar-sweetened beverages); Sufficient protein intake; and Sufficient intake of healthy fats. 1. Choose foods with a wide variety of colors and textures, in their most natural forms. Foods that are enjoyed in a natural state are the most satisfying and provide the greatest nutritional value. Choose a variety of unprocessed colors and textures--foods as close to their original, natural states as possible--will make the most significant difference in long-term health and longevity. Nearly one half of all cardiometabolic deaths (heart disease, stroke, type 2 diabetes) in the [place] were linked to not enough vegetables, fruits, nuts, and seeds, as well as omega-3 fatty acids. 2. Avoid or dramatically minimize processed foods. Processed foods and beverages, such as packaged snacks, smoked meats, white flour, and sugar-sweetened foods and beverages, should be avoided. 7.4% of all cardiometabolic deaths were linked to sugar-sweetened beverages, and 8.2% were linked to processed meats. Salt showed a similar negative impact. Is believed that sugar is the new tobacco. Recent studies show that artificial sweeteners and diet soda may be harmful. Sodium is another long-time concern, and is prevalent in processed foods. Nearly 71% of sodium--comes from foods prepared outside the home Sodium naturally occurring in whole foods is rarely substantial. 3. Consume healthy oils for heart health: fish, olive, avocado. 7.8% of cardiometabolic deaths were tied to low levels of omega-3 fatty acids in the diet Fish oils can prevent further illness in those with a history of heart disease. The AHA recommends that everybody eat fish that are rich in omega-3 fatty acids. Other beneficial fats include olive oil, avocado oil, canola oil, walnut oil, flaxseed oil, and darell seed oil. 4. Forego red meat and live longer. Although red meat is a principal source of protein and fat, research shows that consumption of red meat is linked to increased risks for cancer, diabetes, and cardiovascular disease, all of which decrease life 5. Consume fermented foods/probiotics and fiber for gastrointestinal and overall health. Probiotics contain microorganisms that confer gastrointestinal benefit. They are commonly found in yogurt, kefir, and unpasteurized fermented foods and drinks. They can also be taken in supplement form. In order to thrive, probiotics require prebiotics as food, which can be found in fiber Probiotics contain healthy yeast and bacteria that decrease harmful organisms in the gut and improve immune health 6. Avoid alcohol, or limit consumption to one drink per day for women or two for men a. Alcohol has been linked to several conditions and diseases, including seven cancers. 7. Try not to substitute food sources with vitamin supplements. a. Although supplements may not cause harm, they could potentially make us a bit more lax in terms of trying to eat a healthful diet, and evidence that supplements can replace genuine nutrition is scarce. Trans Health Resources There are a number of resources available on line and in the community: Online: [facility] Center of Excellence for Trans Health: http://transhealth.[facility]/trans?page =home Primary Care Protocols (medical guidelines for taking care of trans people) http://transhealth.[facility].edu/trans?page =guidelines-home Feminizing Therapy: http://transhealth.[facility].edu/trans?page =lmkatnpvfr-ojwytviilc-gssvcgx Video for Feminizing Therapy: https://www.Jiniube.com/watch?v=GJEix- i5pmE Masculinizing Therapy: http://transhealth.[facility]/trans?page =xocctfeqqs-nehdxicoviolc-ugfalys Video for Masculinizing Therapy: https://www.Jiniube.com/watch?v=GAJZ4f wTuyc&feature=youtu.be Community Resources: [facility] [place]: http://www.trans[place].org/ Legal Assistance/ Name and Gender Marker Change: https://Threadbox/our-services /sbpzbt-dtbdhpkcy-ikee/legal-clinics/ Gender Marker & Name Change Guide Find instructions for changing your name and gender marker on identity documents and other records for each [facility]. https://Threadbox/our-services /tcbwnd-lrlzvacog-erzy/wbxied-kwvwqa-q tvj-alrajx-dfjoe/ documented in this encounter TouchMail Phone: 2023 Miscellaneous Notes Healthy Eating 101 Overall goals: Increased vegetable and fruit intake; Consumption of foods that are high in fiber; Consumption of whole-grain foods; Increased water intake; Decreased intake of dietary sugar (eg, sugar-sweetened beverages); Sufficient protein intake; and Sufficient intake of healthy fats. 1. Choose foods with a wide variety of colors and textures, in their most natural forms. Foods that are enjoyed in a natural state are the most satisfying and provide the greatest nutritional value. Choose a variety of unprocessed colors and textures--foods as close to their original, natural states as possible--will make the most significant difference in long-term health and longevity. Nearly one half of all cardiometabolic deaths (heart disease, stroke, type 2 diabetes) in the [place] were linked to not enough vegetables, fruits, nuts, and seeds, as well as omega-3 fatty acids. 2. Avoid or dramatically minimize processed foods. Processed foods and beverages, such as packaged snacks, smoked meats, white flour, and sugar-sweetened foods and beverages, should be avoided. 7.4% of all cardiometabolic deaths were linked to sugar-sweetened beverages, and 8.2% were linked to processed meats. Salt showed a similar negative impact. Is believed that sugar is the new tobacco. Recent studies show that artificial sweeteners and diet soda may be harmful. Sodium is another long-time concern, and is prevalent in processed foods. Nearly 71% of sodium--comes from foods prepared outside the home Sodium naturally occurring in whole foods is rarely substantial. 3. Consume healthy oils for heart health: fish, olive, avocado. 7.8% of cardiometabolic deaths were tied to low levels of omega-3 fatty acids in the diet Fish oils can prevent further illness in those with a history of heart disease. The AHA recommends that everybody eat fish that are rich in omega-3 fatty acids. Other beneficial fats include olive oil, avocado oil, canola oil, walnut oil, flaxseed oil, and darell seed oil. 4. Forego red meat and live longer. Although red meat is a principal source of protein and fat, research shows that consumption of red meat is linked to increased risks for cancer, diabetes, and cardiovascular disease, all of which decrease life 5. Consume fermented foods/probiotics and fiber for gastrointestinal and overall health. Probiotics contain microorganisms that confer gastrointestinal benefit. They are commonly found in yogurt, kefir, and unpasteurized fermented foods and drinks. They can also be taken in supplement form. In order to thrive, probiotics require prebiotics as food, which can be found in fiber Probiotics contain healthy yeast and bacteria that decrease harmful organisms in the gut and improve immune health 6. Avoid alcohol, or limit consumption to one drink per day for women or two for men a. Alcohol has been linked to several conditions and diseases, including seven cancers. 7. Try not to substitute food sources with vitamin supplements. a. Although supplements may not cause harm, they could potentially make us a bit more lax in terms of trying to eat a healthful diet, and evidence that supplements can replace genuine nutrition is scarce. Trans Health Resources There are a number of resources available on line and in the community: Online: [facility] Center of Excellence for Trans Health: http://transhealth.[facility]/trans?page =home Primary Care Protocols (medical guidelines for taking care of trans people) http://transhealth.[facility].edu/trans?page =guidelines-home Feminizing Therapy: http://transhealth.[facility].edu/trans?page =ngkhpiojey-bdpdoiolfo-aoesuys Video for Feminizing Therapy: https://www.Jiniube.com/watch?v=GJEix- i5pmE Masculinizing Therapy: http://transhealth.[facility].edu/trans?page =ajxlnbsuwe-lzmccxvukwvmu-gewmkzp Video for Masculinizing Therapy: https://www.youLean Trainube.com/watch?v=GAJZ4f wTuyc&feature=youtu.be Community Resources: [facility] [place]: http://www.[place].org/ Legal Assistance/ Name and Gender Marker Change: https://Threadbox/our-services /owsurx-oeglhfgiu-xpqw/legal-clinics/ Gender Marker & Name Change Guide Find instructions for changing your name and gender marker on identity documents and other records for each [facility]. https://Andtix.com/our-services /khgvmh-abosnxmro-maio/rcfegm-fxjzbs-x axd-parqdn-tpdpf/ You might get an email asking you to complete a survey about your visit today. We hope you will take a few minutes and answer some questions about your experience. Your responses let us know what is working well and where we can improve. The email will come from [employer], which is the company that sends out our patient surveys. Thank you for your feedback and trusting us with your care. documented in this encounter TouchMail Phone: 2023 History of Present illness Narrative Images from the original note were not included. Chief Complaint / HPI: Chief Complaint Patient presents with Gender Affirming Hormone Therapy HPI Problems Assessed, Plan, Orders & Medical Decision Making 1. Gender dysphoria (Primary) Overview: Initial started estrogen and spironolactone (01/20/2020), patient discontinued GAC 02/2020. Dysphoria, body hair, facial hair, masculine facial appearance, genitals Mental Health: Psychologist is Nora Wakefield ,and Simran Viveros: last visit was April 2021, stopped visits due to cost. Psychiatrist Dr. Jc Frazier Every 3 months. (08/01/2021) Restart Estradiol & spironolactone (05/23/2022) Increase spironolactone 75mg daily, continue Estradiol (03/19/2023) Started Finasteride 5mg daily for patient reported hair thinning Assessment & Plan: Gender Affirming Care - Follow-Up Visit: Name Reuben Gender Identity questioning Pronouns he 04/30/2023 8:13 AM 02/06/2023 12:00 AM [facility] Prescribed estradiol Take 4mg in the AM and 2mg in the PM by mouth daily (2 mg tab) Take 4mg in the AM and 2mg in the PM by mouth daily (2 mg tab) spironolactone 25 mg Daily oral 50 mg Daily oral 25 mg Daily oral 50 mg Daily oral Medication marked as long-term Multiple values from one day are sorted in reverse-chronological order Side effects? none Adherence? Taking 4mg in the evening, not taking AM estradiol Not missed spironolactone dose Days in dosing cycle (if inj) 3 Energy - Mood Okay energy / mood is stable feeling good Body Hair Skin is softer, facial an body less course and softer Fat re-distribution yes Breast Development Tenderness, sensitive, some days, some growth since last visit. Erectile function a couple of times Scalp hair changes No changes Last Estradiol 08/14/2022: 71.4 11/13/2022: 63.1 01/31/2023: 71.8 Last Testosterone 08/14/2022: 35 11/13/2022: 116 01/31/2023: 38 Last Potassium 08/14/2022: 4.3 11/13/2022: 4.1 01/31/2023: 4.3 Assessment: improving with treatment Patient virtual today, requesting to discontinue her Estradiol but would like to continue spironolactone at lower dose, patient states that she is still working in [place], family stayed in [place], she is living in [place] for work and visits family on the weekends, she had temporarily from her . Patient states that due to limited support from family and daughter she would like to slow down affirming care for now. Plan: Continue same management plan Continue meds as previously prescribed Order labs Decrease Estradiol 4 mg daily for one week, then decrease 2mg for one week then stop Change spironolactone to 50mg day down from 75mg day Follow up and labs in 3 months Depression Screening: PHQ2 Score (!) 2 at 02/06/2023 6:37 AM PHQ-9 Total Score (Auto Calculated) (!) 11 at 02/06/2023 6:37 AM Depression Severity: Moderate at 02/06/2023 6:37 AM Plan: Depression follow up provided: Counseling / education in visit and Behavioral health referral / coordination Weight Management and Counseling: Plan: counseled patient on BMI and agreed upon a follow up plan for patient's weight, or to follow up with their PCP Follow-up Instructions Check-out Note: Follow up at next scheduled appointment. Future Appointments Date Time Provider Department Center 08/08/2023 2:30 PM Opal Kenny [facility] ROS & Physical Exam Review of Systems Constitutional: Negative for fatigue and unexpected weight change. Respiratory: Negative for cough, chest tightness and shortness of breath. Cardiovascular: Negative for chest pain, palpitations and leg swelling. Gastrointestinal: Negative for nausea and vomiting. Skin: Negative for rash. Neurological: Negative for dizziness, light-headedness and headaches. Psychiatric/Behavioral: Positive for dysphoric mood. Negative for self-injury and suicidal ideas. All other systems reviewed and are negative. Physical Exam Constitutional: Appearance: Normal appearance. Pulmonary: Effort: Pulmonary effort is normal. Neurological: Mental Status: He is alert. Psychiatric: Mood and Affect: Mood normal. Rooming Note: Reuben presents to [facility] today for Gender Affirming Hormone Therapy Since Last Visit? Been to an Urgent Care, ER or Hospital? no Seen any other providers / specialists? no Received any vaccines? no Had any tests, like a Xray, mammogram or colonoscopy? no Vaccines Recommended Today: Health Maintenance Due Topic Date Due Imm-Influenza (1) 01/18/2023 Imm-Zoster, Recombinant (1 of 2) 2023 SBIRT 02/06/2023 6:37 AM Little interest or pleasure in doing things Several days Feeling down, depressed or hopeless [include irritable if under 18] Several days PHQ2 Score (!) 2 Little interest or pleasure in doing things Several days Feeling down, depressed or hopeless [include irritable if under 18] Several days Trouble falling or staying asleep, or sleeping too much Nearly every day Feeling tired or having little energy More than half the days Poor appetite or overeating Several days Feeling bad about yourself - or that you are a failure or have let yourself or your family down Several days Trouble concentrating on things like school work, reading or watching TV? Not at all Moving or speaking so slowly that other people could have noticed? Or the opposite - being so fidgety or restless that you have been moving around a lot more than usual Several days Thoughts you would be better off or of hurting yourself in some way (!) Several days If you checked off any problems, how difficult have these problems made it for you to do your work, take care of things at home, or get along with other people? Somewhat difficult PHQ-9 Total Score (Auto Calculated) (!) 11 Depression Severity: Moderate No data to display PHQ-9 Total Score (Auto Calculated) (!) 11 at 02/06/2023 6:37 AM DAVID-7 No data to display Health Maintenance Due Topic Date Due Lipid Screening Never done Alcohol and Drug Screen 05/20/2022 Imm-Influenza (1) 01/18/2023 Hypertension Screening (1) Never done Breast Cancer Screening (Mammogram) 2023 Imm-Zoster, Recombinant (1 of 2) 2023 Goals as of 2023 at 9:23 AM None Patient Active Problem List Diagnosis Hemochromatosis Panic disorder with agoraphobia Obsessive-compulsive disorder Generalized anxiety disorder MDD (major depressive disorder) Gender dysphoria Tele-Health Visit The patient's identity was verified at the start of the encounter. The patient and/or their guardian have given their verbal consent to this tele-health visit. This visit took place via tele-health video visit The patient's location is home Additional persons on the call: no one Flight Operations Dispatch Clerk used/present: No. HIV testing offered: declined STI testing offered: declined Associated Problem(s): Gender dysphoria Images from the original note were not included. Gender Affirming Care - Follow-Up Visit: Name Reuben Gender Identity questioning Pronouns 04/30/2023 8:13 AM 02/06/2023 12:00 AM [facility] Prescribed estradiol Take 4mg in the AM and 2mg in the PM by mouth daily (2 mg tab) Take 4mg in the AM and 2mg in the PM by mouth daily (2 mg tab) spironolactone 25 mg Daily oral 50 mg Daily oral 25 mg Daily oral 50 mg Daily oral Medication marked as long-term Multiple values from one day are sorted in reverse-chronological order Side effects? none Adherence? Taking 4mg in the evening, not taking AM estradiol Not missed spironolactone dose Days in dosing cycle (if inj) 3 Energy - Mood Okay energy / mood is stable feeling good Body Hair Skin is softer, facial an body less course and softer Fat re-distribution yes Breast Development Tenderness, sensitive, some days, some growth since last visit. Erectile function a couple of times Scalp hair changes No changes Last Estradiol 08/14/2022: 71.4 11/13/2022: 63.1 01/31/2023: 71.8 Last Testosterone 08/14/2022: 35 11/13/2022: 116 01/31/2023: 38 Last Potassium 08/14/2022: 4.3 11/13/2022: 4.1 01/31/2023: 4.3 Assessment: improving with treatment Patient virtual today, requesting to discontinue her Estradiol but would like to continue spironolactone at lower dose, patient states that she is still working in [place], family stayed in [facility], she is living in [facility] for work and visits family on the weekends, she had temporarily from her . Patient states that due to limited support from family and daughter she would like to slow down affirming care for now. Plan: Continue same management plan Continue meds as previously prescribed Order labs Decrease Estradiol 4 mg daily for one week, then decrease 2mg for one week then stop Change spironolactone to 50mg day down from 75mg day Follow up and labs in 3 months documented in this encounter Touch[employer] Phone: 02-08-2023 Discharge summary Note Date/Time February 08, 2023 4:44pm [facility] Medical Records Department [address] [place] [id number] Emergency Department Summary 02/08/23 MR#: [id number] Acct: [id number] Name: REUBEN SAPP Rep #: [id number] : 1975 47 From: Nash Geller MD PCP: BRENT CROCKER Status:REG ER Location: ED HPI History of Present Illness Chief Complaint: Neuro S/Sx Detail of Chief Complaint: Multiple symptoms over the past several days to week Onset/Context/Timing Onset: Weeks Context: Sudden Onset Timing: Intermittent Quality: Detailed in the HPI narrative Location: Detailed in the HPI narrative Current Severity: Mild Maximum Severity: Moderate Worsened by: Nothing specific Relieved by: Nothing Associated Symptoms Associated Symptoms: 5 pound weight gain over the past month Narrative Narrative: Patient is a 47-year-old male with history of anxiety and depression who is on spironolactone and estrogen therapy who presents because he had 3 episodes of total body movement that lasted seconds last evening. There was no incontinenceof urine or stool. There was no loss of consciousness. This occurred when he was lying in bed to go to sleep. He also reports 3 episodes of his knee buckling when he was using the restroom several days ago. He denies buckling ofhis knees going up or down steps. He denies symptoms of claudication. He denies fever, chills night sweats. He denies headache. He denies visual, ocular auditory symptoms. He denies trouble with balance or coordination. He states last evening he was coughing but he was exposed to chemical/fumes while at work. 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 His medications have not changed. One of his medicines dose was increased 2 to 3 weeks ago. There is no family history of seizures and he has no history of febrile seizures. Prior similar symptoms: No Recent Illness/Hospitalization: No PFSH PFSH Allergy/AdvReac Type Severity Reaction Status Date / Time latex Allergy Rash Verified 02/08/23 15:44 levofloxacin [From Levaquin] Allergy Shortness Verified 02/08/23 15:44 of breath Social History (Updated 02/08/23 @ 16:[address] Nash Geller MD) household members: none Smoking Status: Never smoker alcohol intake: never substance use type: does not use ROS ROS ED Constitutional Constitutional ED: Denies chills, fever(s), subjective, sweats or weight loss Eyes Eyes: Denies blurry vision, change in vision or diplopia ENT ENT ED: Denies ear pain, rhinorrhea or sore throat Cardiovascular Cardiovascular: Denies chest pain, orthopnea, palpitations, paroxysmal nocturnaldyspnea or racing heartbeat Respiratory/Chest Respiratory/Chest: Denies cough, dyspnea, dyspnea on exertion, orthopnea or paroxysmal nocturnal dyspnea Gastrointestinal Gastrointestinal: Denies abdominal pain, nausea or vomiting Genitourinary Genitourinary ED: Denies dysuria, hematuria or urinary frequency Musculoskeletal Musculoskeletal: Denies arthralgias, back pain, myalgias or neck pain Integumentary Denies rash Neurologic Neurologic: Denies headache(s) or paresthesias Psychiatric Psychiatric: Reports anxiety and depression Endocrine Endocrinology: Denies cold intolerance or heat intolerance Hematologic/Lymphatic Hematologic/Lymphatic: Reports systems reviewed and no addt'l complaints, exceptas documented EXAM Physical Exam Const Vital Signs: 02/08/23 15:45 Temperature 96.5 F L Temperature Source Temporal Pulse Rate 77 Respiratory Rate 18 Blood Pressure 139/96 H Blood Pressure Mean 110 Pulse Ox 99 Oxygen Delivery Method Room Air Positive well nourished, well developed and obese Constitutional Narrative: Patient appears pale. He has been told by others that he appears pale. General Appearance ED: well developed, NAD and pallor; Negative for cyanotic or diaphoretic Nutritional Appearance: obese HEENT Reports moist mucous membranes HEENT Narrative: Head is normocephalic and atraumatic. Ears are normal. TMs are normal. Nares patent with no discharge. Uvula is midline. There is no deviation tongue with protrusion. Posterior pharynx is normal. Eyes PERRL and EOMs intact bilaterally Eyes Narrative: There is no nystagmus. Conjunctive is. General Eye ED: Negative for pale conjunctiva or scleral icterus Chest Wall inspection of chest normal and palpation of chest normal Resp normal respiratory effort and clear to auscultation bilaterally Cardio regular rate, regular rhythm, S1 normal heart sound and S2 normal heart sound GI normal to inspection, nondistended, normoactive bowel sounds, non-tender, non-distended and no masses; Negative for hepatosplenomegaly Back/Spine no CVA tenderness Extremity normal to inspection General Extremety ED: Negative for edema or tenderness General Extremity: Negative for edema Neuro oriented x3, CN's II-XII intact bilaterally and no sensory deficits noted Neuro Narrative: There is no dysmetria. DTRs are 2+ at the bicep, brachialis, triceps, patella and ankle. There is no clear or Babinski sign noted. Sensorium / Orientation: alert Motor Exam: strength 5/5 throughout Psych Psych Narrative: Mood is flat. Mood & Affect: depressed Skin no rashes or lesions noted, no wounds and skin turgor normal General Skin Exam: pallor; Negative for jaundice MDM MDM MDM Narrative Medical decision making narrative: His movement may be myoclonic jerks motion due to near sleep. This also could represent a atypical neurologic event. This could represent adverse reaction tohis medication. Patient's physician affiliated with [facility]. There are no records at [facility] or laboratory results performed prior to this visit at [facility]. Lab Data Attestation: I reviewed the patient's lab results. Lab results narrative: Laboratory work-up is unremarkable. Patient was informed that his blood tests are unremarkable. He was discharged home with appropriate home-going instructions Labs: Laboratory Results - last 24 hr 02/08/23 02/08/23 16:20 17:18 WBC 8.0 RBC 4.55 L Hgb 14.0 Hct 41.9 MCV 92.1 MCH 30.8 MCHC 33.4 RDW Std Deviation 46.0 H RDW Coeff of Alcides 13.4 Plt Count 311 MPV 9.0 Immature Gran % (Auto) 0.500 Neut % (Auto) 55.7 Lymph % (Auto) 29.1 Posey % (Auto) 9.2 Eos % (Auto) 4.0 Baso % (Auto) 1.5 H Absolute Neuts (auto) 4.5 Absolute Lymphs (auto) 2.33 Nucleated RBC % 0 Sodium 135 L Potassium 3.7 Chloride 107 Carbon Dioxide 23.0 Anion Gap 5 BUN 18 Creatinine 1.06 Estim Creat Clear Calc 78.81 Est GFR (MDRD) Af Amer 95 Est GFR (MDRD) Non-Af 79 BUN/Creatinine Ratio 17.0 Glucose 105 Calcium 8.9 Total Bilirubin 0.20 AST 14 L ALT 34 Alkaline Phosphatase 97 Total Protein 7.2 Albumin 3.7 Globulin 3.5 Albumin/Globulin Ratio 1.1 POC Glucose 118 H Discharge Plan Triage Chief Complaint: Neuro S/Sx ED Provider: Nash Geller Dx/Rx/DC Orders Clinical Impression: Abnormal involuntary movements Primary Care Provider: BRENT CROCKER Referrals: BRENT CROCKER [Other] - As Needed Disposition Disposition: Home, Self Care What to do if you have Problems For any increased pain, shortness of breath, bleeding, nausea or vomiting, chest pain, or any unexpected problems, contact your Primary Care Provider. Call [facility] ([phone]) or report to the closest Emergency Room. Call 911 if necessary. 02/08/23 1810 <Electronically signed by Nash Geller MD> Cosigner Signature (if applicable): CC: BREEZYANNE LIZZETTE ~ Signed [facility] Work Phone: [phone] 557-420407-05-2023 Miscellaneous Notes* Patient Instructions - Opal Kenny APRN,LULU - 11/21/2022 7:19 AM EDT You might get an email asking you to complete a survey about your visit today. We hope you will take a few minutes and answer some questions about your experience. Your responses let us know what is working well and where we can improve. The email will come from [employer], which is the company thatsends out our patient surveys. Thank you for your feedback and trusting us with your care.Trans Health Resources There are a number of resources available on line and in the community: Online: [facility] Center of Excellence for Trans Health: http://transhealth.[facility]/trans?page=home Primary Care Protocols (medical guidelines for taking care of trans people) http://transhealth.[facility].edu/trans?page=guidelines-home Feminizing Therapy: http://transhealth.[facility].edu/trans?page=umrzxouuin-tuprsgefkp-mpshwgk Video for Feminizing Therapy: https://www.youLean Trainube.com/watch?v=GJEix-i5pmE Masculinizing Therapy: http://transhealth.[facility].edu/trans?page=fkmdhqkbld-hbgrxzbzevprp-bioljmd Video for Masculinizing Therapy: https://www.[employer] Trainube.com/watch?v=NFCZ0dhTkrf&feature=youtu.be Community Resources: [facility] [place]: http://www.[place].org/ Legal Assistance/ Name and Gender Marker Change: https://Threadbox/our-services/eoqyif-mkeewzcjb-solg/legal-clinics/ Gender Marker & Name Change Guide Find instructions for changing your name and gender marker on identity documents and other records for each [facility]. https://Threadbox/our-services/sfyekp-liwivqheb-mnml/yxdrvo-odpush-kjkh- change-guide/ Feminizing Fact Sheet Estrogen Estrogen should be used with caution and only after a full discussion of risk by anyone who: Has a strong family history of Breast Cancer or other Cancers that grow quicker with Estrogen Has Diabetes Has eye problems such as Retinopathy Has Heart Disease, Heart Valve problems, or a tendency to have easily clotted blood Has Hepatitis Has High Cholesterol Has Kidney or Liver Disease Has Migraines or Seizures Is Obese Smokes Cigarettes NOTE: You can talk with your Provider about Fertility options, as well as resources available if you would like at the time of your appointment. Permanent Changes with Estrogen: While being on Estrogen you will begin to develop Breast Tissue: It may take several years' breasts to develop to their full size. The breast tissue will remain, even if Estrogen is stopped Newly developed breasts should be examined regularly, by you and your clinician at time of visits. Non-Permanent Changes with Estrogen: Decreased Erectile Function Body shape change Body hair decrease Fertility Risk Factors of Taking Estrogen: When taking Estrogen for Hormone Therapy there are increased risks for: Chronic problems with veins in the legs Gallstones Heart Attack Pulmonary Embolism (blood clot of the lungs). This may cause permanent lung damage or Stroke, may cause permanent brain damage NOTE: Cigarette smoking increases the risk for blood clots, especially in those over the age of 40.Smoking also limits Breast development, and decreases effectiveness of Estrogen in the body. The danger of this is very high. It is highly encouraged to begin the process of quitting smoking before starting Estrogen. If you need assistance with quitting, please ask your Provider on options for Smoking Cessation. documented in [facility] Work Phone: [phone]) 503-633607-05-2023 History of Present illness Narrative* Opal Kenny APRN, CNP - 11/21/2022 7:00 AM EDT Images from the original note were not included. Tele-Health Visit Statement [facility] The patient's identity was verified and they have verbally stated that they are currently in the [facility]. The risks, benefits, and alternatives of a realtime synchronous audiovisual consultation were discussed with the patient and/or their guardian and they have given their verbal consent to this tele-health visit. This visit took place via tele-health video visit Additional persons on the call: no one Flight Operations Dispatch Clerk used/present: Not Applicable Chief Complaint / HPI: Chief Complaint Patient presents with Gender Affirming Hormone Therapy HPI Problems Assessed, Plan, Orders & Medical Decision Making 1. Gender dysphoria (Primary) Overview: Initial started estrogen and spironolactone (01/20/2020), patient discontinued GAC 02/2020. Dysphoria, body hair, facial hair, masculine facial appearance, genitals Mental Health: Psychologist is Nora Wakefield ,and Simran Viveros: last visit was April 2021, stopped visits due to cost. Psychiatrist Dr. Jc Frazier Every 3 months. (08/01/2021) Restart Estradiol & spironolactone (05/23/2022) Increase spironolactone 75mg daily, continue Estradiol Assessment & Plan: Gender Affirming Care - Follow-Up Visit: Name Reuben Gender Identity questioning Pronouns he 11/21/2022 6:48 AM 08/22/2022 12:00 AM [facility] Prescribed estradiol Take 4mg in the AM and 2mg in the PM by mouth daily (2 mg tab) Take 4mg in the AM and 2mgin the PM by mouth daily (2 mg tab) spironolactone 25 mg Daily oral 50 mg Daily oral 25 mg Daily oral 50 mg Daily oral Medication marked as long-term Multiple values from one day are sorted in reverse-chronological order Side effects? none Adherence? Taking 4mg in the evening, not taking AM estradiol Not missed spironolactone doses Days in dosing cycle (if inj) 3 Energy - Mood Okay energy / mood is stable feeling good Body Hair Skin is softer, facial an body less course and softer Fat re-distribution yes Breast Development Tenderness, sensitive, some days, some growth since last visit. Erectile function a couple of times Scalp hair changes No changes Last Estradiol 04/27/2022: 242.0 08/14/2022: 71.4 11/13/2022: 63.1 Last Testosterone 04/27/2022: 230 08/14/2022: 35 11/13/2022: 116 Last Potassium 04/27/2022: 4.5 08/14/2022: 4.3 11/13/2022: 4.1 Assessment: improving with treatment increased estradiol to 6mg daily, today states he has taken 4mg in the evenings, he increased to 6mg of estradiol experienced stomach pains, contributed it to estradiol increase so he stopped taking the morning dose, has since found out it was not estradiol and was some GI stuff. He is going to restart 6mg daily. Plan: Continue same management plan Continue meds as previously prescribed Order labs Orders: - spironolactone (ALDACTONE) 50 mg tablet; Take 1 Tablet by mouth once daily, Disp-30 Tablet, R-3 e-Prescribing, Long-term Dispense: 30 Tablet; Refill: 3 - spironolactone (ALDACTONE) 25 mg tablet; Take 1 Tablet by mouth once daily, Disp-30 Tablet, R-3 e-Prescribing, Long-term Dispense: 30 Tablet; Refill: 3 - estradioL (ESTRACE) 2 mg tablet; Take 4mg in the AM and 2mg in the PM by mouth daily, Disp-90 Tablet, R-3 e-Prescribing, Long-term Dispense: 90 Tablet; Refill: 3 - COMPREHENSIVE METABOLIC PANEL; Future - ASSAY OF TESTOSTERONE TOTAL; Future - ASSAY OF TOTAL ESTRADIOL; Future Depression Screening: PHQ2 Score (!) 3 at 01/19/2022 12:55 PM PHQ-9 Total Score (Auto Calculated) (!) 10 at 01/19/2022 12:55 PM Depression Severity: Moderate at 01/19/2022 12:55 PM Plan: Depression follow up provided: Counseling / education in visit and Behavioral health referral/ coordination Weight Management and Counseling: Height, Weight and Body Mass Index (BMI) 01/19/2022 01/20/2020 01/05/2020 Weight 190 lb 9.6 oz 187 lb 187 lb Height 67 in. 67 in. - BMI 29.85 29.29 - Plan: counseled patient on BMI and agreed upon a follow up plan for patient's weight, or to follow up with their PCP Follow-up Instructions Return in about 3 months (around 02/21/2023) for GAC F/u, 3 months, Virtual Visit, labs 1 wk before f/u. Check-out Note: GAC F/u, 3 months, Virtual Visit, labs 1 wk before f/u Please call for check out at home number listed not mobile number per patient (Pt stated will get labs completed at [facility] near home ) Future Appointments Date Time Provider Department Center 02/20/2023 7:30 AM Opal Kenny APRN,PUPPET MAKER DAYCOUNT INCLUDES THE [facility] ROS & Physical Exam Review of Systems Constitutional: Negative for fatigue and unexpected weight change. Respiratory: Negative for cough, chest tightness and shortness of breath. Cardiovascular: Negative for chest pain, palpitations and leg swelling. Gastrointestinal: Negative for nausea and vomiting. Skin: Negative for rash. Neurological: Negative for dizziness, light-headedness and headaches. Psychiatric/Behavioral: Positive for dysphoric mood. Negative for self-injury and suicidal ideas. All other systems reviewed and are negative. Physical Exam Constitutional: Appearance: Normal appearance. Pulmonary: Effort: Pulmonary effort is normal. Neurological: Mental Status: He is alert. Psychiatric: Mood and Affect: Mood normal. * Opal Kenny APRN, CNP - 11/21/2022 6:48 AM EDTAssociated Problem(s): Gender dysphoria Images from the original note were not included. Gender Affirming Care - Follow-Up Visit: Name Reuben Gender Identity questioning Pronouns he 11/21/2022 6:48 AM 08/22/2022 12:00 AM [facility] Prescribed estradiol Take 4mg in the AM and 2mg in the PM by mouth daily (2 mg tab) Take 4mg in the AM and 2mgin the PM by mouth daily (2 mg tab) spironolactone 25 mg Daily oral 50 mg Daily oral 25 mg Daily oral 50 mg Daily oral Medication marked as long-term Multiple values from one day are sorted in reverse-chronological order Side effects? none Adherence? Taking 4mg in the evening, not taking AM estradiol Not missed spironolactone doses Days in dosing cycle (if inj) 3 Energy - Mood Okay energy / mood is stable feeling good Body Hair Skin is softer, facial an body less course and softer Fat re-distribution yes Breast Development Tenderness, sensitive, some days, some growth since last visit. Erectile function a couple of times Scalp hair changes No changes Last Estradiol 04/27/2022: 242.0 08/14/2022: 71.4 11/13/2022: 63.1 Last Testosterone 04/27/2022: 230 08/14/2022: 35 11/13/2022: 116 Last Potassium 04/27/2022: 4.5 08/14/2022: 4.3 11/13/2022: 4.1 Assessment: improving with treatment increased estradiol to 6mg daily, today states he has taken 4mg in the evenings, he increased to 6mg of estradiol experienced stomach pains, contributed it to estradiol increase so he stopped taking the morning dose, has since found out it was not estradiol and was some GI stuff. He is going to restart 6mg daily. Plan: Continue same management plan Continue meds as previously prescribed Order labs documented in [facility] Work Phone: [phone] 561-431004-05-2023 Instructions* Patient Instructions* Opal Kenny APRN, CNP - 08/22/2022 7:37 AM EDT Healthy Eating 101 Overall goals: Increased vegetable and fruit intake; Consumption of foods that are high in fiber; Consumption of whole-grain foods; Increased water intake; Decreased intake of dietary sugar (eg, sugar-sweetened beverages); Sufficient protein intake; and Sufficient intake of healthy fats. 1. Choose foods with a wide variety of colors and textures, in their most natural forms. Foods that are enjoyed in a natural state are the most satisfying and provide the greatest nutritional value. Choose a variety of unprocessed colors and textures--foods as close to their original, natural states as possible--will make the most significant difference in long-term health and longevity. Nearly one half of all cardiometabolic deaths (heart disease, stroke, type 2 diabetes) in the [place] were linked to not enough vegetables, fruits, nuts, and seeds, as well as omega-3 fatty acids. 2. Avoid or dramatically minimize processed foods. Processed foods and beverages, such as packaged snacks, smoked meats, white flour, and sugar-sweetened foods and beverages, should be avoided. 7.4% of all cardiometabolic deaths were linked to sugar-sweetened beverages, and 8.2% were linked to processed meats. Salt showed a similar negative impact. Is believed that sugar is the new tobacco. Recent studies show that artificial sweeteners and diet soda may be harmful. Sodium is another long-time concern, and is prevalent in processed foods. Nearly 71% of sodium--comes from foods prepared outside the home Sodium naturally occurring in whole foods is rarely substantial. 3. Consume healthy oils for heart health: fish, olive, avocado. 7.8% of cardiometabolic deaths were tied to low levels of omega-3 fatty acids in the diet Fish oils can prevent further illness in those with a history of heart disease. The AHA recommends that everybody eat fish that are rich in omega-3 fatty acids. Other beneficial fats include olive oil, avocado oil, canola oil, walnut oil, flaxseed oil, and darell seed oil. 4. Forego red meat and live longer. Although red meat is a principal source of protein and fat, research shows that consumption of red meat is linked to increased risks for cancer, diabetes, and cardiovascular disease, all of which decrease life 5. Consume fermented foods/probiotics and fiber for gastrointestinal and overall health. Probiotics contain microorganisms that confer gastrointestinal benefit. They are commonly found in yogurt, kefir, and unpasteurized fermented foods and drinks. They can also be taken in supplement form. In order to thrive, probiotics require prebiotics as food, which can be found in fiber Probiotics contain healthy yeast and bacteria that decrease harmful organisms in the gut and improve immune health 6. Avoid alcohol, or limit consumption to one drink per day for women or two for men a. Alcohol has been linked to several conditions and diseases, including seven cancers. 7. Try not to substitute food sources with vitamin supplements. a. Although supplements may not cause harm, they could potentially make us a bit more lax in terms of trying to eat a healthful diet, and evidence that supplements can replace genuine nutrition is scarce. Trans Health Resources There are a number of resources available on line and in the community: Online: [facility] Center of Excellence for Trans Health: http://transhealth.[facility]/trans?page=home- Primary Care Protocols (medical guidelines for taking care of trans people) http://transhealth.[facility].edu/trans?page=guidelines-home Feminizing Therapy: http://transhealth.[facility].edu/trans?page=kuazpeytra-xqepgyndam-iclpdkj Video for Feminizing Therapy: https://www.Virtuata.com/watch?v=GJEix-i5pmE Masculinizing Therapy: http://transhealth.[facility].edu/trans?page=zyhouuttmj-fehuutufmyabx-iquuggi Video for Masculinizing Therapy: https://www.youtube.com/watch?v=QXEC1acOjyt&feature=youtu.be Community Resources: [facility] [place]: http://www.trans[place].org/ Legal Assistance/ Name and Gender Marker Change: https://Threadbox/Doorbotservices/wwlojo-pawsrwxbp-ewqp/legal-clinics/ Gender Marker & Name Change Guide Find instructions for changing your name and gender marker on identity documents and other records for each [facility]. https://Threadbox/[employer]oorbotservices/ckqevh-nosdzazsm-lysu/oinavp-iwftne-fwrr- change-guide/ You might get an email asking you to complete a survey about your visit today. We hope you will take a few minutes and answer some questions about your experience. Your responses let us know what is working well and where we can improve. The email will come from [employer], which is the company thatsends out our patient surveys. Thank you for your feedback and trusting us with your care. documented in this encounterTouchMail Phone: [phone] 298-423904-05-2023 Miscellaneous Notes* Assessment & Plan Note - Opal Kenny APRN, CNP - 08/22/2022 7:05 AM EDTAssociated Problem(s): Gender dysphoria Images from the original note were not included. Gender Affirming Care - Follow-Up Visit: Name Reuben Gender Identity questioning Pronouns 08/22/2022 7:05 AM 05/23/2022 12:00 AM [facility] Med[facility] Prescribed estradiol 2 mg BID oral 2 mg BID oral spironolactone 50 mg Daily oral 25 mg Daily oral 50 mg Daily oral 25 mg Daily oral Medication marked as long-term Multiple values from one day are sorted in reverse-chronological order Side effects? none Adherence? Has missed second estradiol dose every so often Days in dosing cycle (if inj) 3 Energy - Mood Improved energy / mood is stable feeling good Body Hair Skin is softer, facial an body less course and softer Fat re-distribution yes Breast Development Tenderness, sensitive, some days, some growth since last visit Erectile function a couple of times Scalp hair changes No changes Last Estradiol 01/05/2022: 47.0 04/27/2022: 242.0 08/14/2022: 71.4 Last Testosterone 01/05/2022: 396 04/27/2022: 230 08/14/2022: 35 Last Potassium 01/05/2022: 3.7 04/27/2022: 4.5 08/14/2022: 4.3 Assessment: improving with treatment , patient improved energy, 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 The day of lab draw patient reports he was flying from [place], took estradiol at 11pm and lab draw was the next day around 3. Had a visit with family in [place], and they noticed my breast, butt and hips are bigger, reports told family about transition and they are not in agreement. Reports is not very supportiveagain. Patient reports getting to the point where it is hard to hide feminine physical changes, patient contemplating presentation. Patient would like to increase estradiol today, I want to keep moving forward. Plan: Change dose/Add new med Order labs Increase estradiol to 6mg daily continue spironolactone Follow up and labs 3 months documented in this encounterLacrosse [facility] Stars Work Phone: [phone] 618-168004-05-2023 History of Present illness Narrative* Opal Kenny APRN, CNP - 08/22/2022 7:01 AM EDT Images from the original note were not included. Tele-Health Visit The patient's identity was verified at the start of the encounter. The patient and/or their guardian have given their verbal consent to this tele- health visit. This visit took place via tele-health video visit The patient's location is home Additional persons on the call: no one Flight Operations Dispatch Clerk used/present: No. Chief Complaint / HPI: Chief Complaint Patient presents with Gender Dysphoria HPI Problems Assessed, Plan, Orders & Medical Decision Making 1. Gender dysphoria (Primary) Overview: Initial started estrogen and spironolactone (01/20/2020), patient discontinued GAC 02/2020. Dysphoria, body hair, facial hair, masculine facial appearance, genitals Mental Health: Psychologist is Nora Wakefield ,and Simran Viveros: last visit was April 2021, stopped visits due to cost. Psychiatrist Dr. Jc Frazier Every 3 months. (08/01/2021) Restart Estradiol & spironolactone (05/23/2022) Increase spironolactone 75mg daily, continue Estradiol Assessment & Plan: Gender Affirming Care - Follow-Up Visit: Name Reuben Gender Identity questioning Pronouns he 08/22/2022 7:05 AM 05/23/2022 12:00 AM [facility] Med[facility] Prescribed estradiol 2 mg BID oral 2 mg BID oral spironolactone 50 mg Daily oral 25 mg Daily oral 50 mg Daily oral 25 mg Daily oral Medication marked as long-term Multiple values from one day are sorted in reverse-chronological order Side effects? none Adherence? Has missed second estradiol dose every so often Days in dosing cycle (if inj) 3 Energy - Mood Improved energy / mood is stable feeling good Body Hair Skin is softer, facial an body less course and softer Fat re-distribution yes Breast Development Tenderness, sensitive, some days, some growth since last visit Erectile function a couple of times Scalp hair changes No changes Last Estradiol 01/05/2022: 47.0 04/27/2022: 242.0 08/14/2022: 71.4 Last Testosterone 01/05/2022: 396 04/27/2022: 230 08/14/2022: 35 Last Potassium 01/05/2022: 3.7 04/27/2022: 4.5 08/14/2022: 4.3 Assessment: improving with treatment , patient improved energy, 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 The day of lab draw patient reports he was flying from [place], took estradiol at 11pm and lab draw was the next day around 3. Had a visit with family in [place], and they noticed my breast, butt and hips are bigger, reports told family about transition and they are not in agreement. Reports is not very supportiveagain. Patient reports getting to the point where it is hard to hide feminine physical changes, patient contemplating presentation. Patient would like to increase estradiol today, I want to keep moving forward. Plan: Change dose/Add new med Order labs Increase estradiol to 6mg daily continue spironolactone Follow up and labs 3 months Orders: - estradioL (ESTRACE) 2 mg tablet; Take 4mg in the AM and 2mg in the PM by mouth daily, Disp-90 Tablet, R-3 e-Prescribing, Long-term Dispense: 90 Tablet; Refill: 3 - spironolactone (ALDACTONE) 25 mg tablet; Take 1 Tablet by mouth 1 time each day, Disp-30 Tablet, R-3 e-Prescribing, Long-term Dispense: 30 Tablet; Refill: 3 - spironolactone (ALDACTONE) 50 mg tablet; Take 1 Tablet by mouth 1 time each day, Disp-30 Tablet, R-3 e-Prescribing, Long-term Dispense: 30 Tablet; Refill: 3 - COMPREHENSIVE METABOLIC PANEL; Future - ASSAY OF TOTAL ESTRADIOL; Future - ASSAY OF TESTOSTERONE TOTAL; Future Depression Screening: PHQ2 Score (!) 3 at 01/19/2022 12:55 PM PHQ-9 Total Score (Auto Calculated) (!) 10 at 01/19/2022 12:55 PM Depression Severity: Moderate at 01/19/2022 12:55 PM Plan: Depression follow up provided: Counseling / education in visit and Behavioral health referral/ coordination Weight Management and Counseling: Height, Weight and Body Mass Index (BMI) 01/19/2022 01/20/2020 01/05/2020 Weight 190 lb 9.6 oz 187 lb 187 lb Height 67 in. 67 in. - BMI 29.85 29.29 - Plan: counseled patient on BMI and agreed upon a follow up plan for patient's weight, or to follow up with their PCP Follow-up Instructions Return in about 3 months (around 11/21/2022) for GAC F/u, 3 months, Virtual Visit, labs 1 wk before f/u. Check-out Note: GAC F/u, 3 months, Virtual Visit, labs 1 wk before f/u No future appointments. ROS & Physical Exam Review of Systems Constitutional: Negative for fatigue and unexpected weight change. Respiratory: Negative for cough, chest tightness and shortness of breath. Cardiovascular: Negative for chest pain, palpitations and leg swelling. Gastrointestinal: Negative for nausea and vomiting. Skin: Negative for rash. Neurological: Negative for dizziness, light-headedness and headaches. Psychiatric/Behavioral: Positive for dysphoric mood. Negative for self-injury and suicidal ideas. All other systems reviewed and are negative. Physical Exam Constitutional: Appearance: Normal appearance. Pulmonary: Effort: Pulmonary effort is normal. Neurological: Mental Status: He is alert. Psychiatric: Mood and Affect: Mood normal. 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 Hair thinning Alopecia, unspecified documented in this encounter TouchMail Phone: evaluxwjal note* Diagnosis URI, acute- Primary Acute upper respiratory infections of unspecified site Acute cough History of asthma Personal history of other diseases of respiratory system [facility] Diagnosis Acute cough- Primary Acute cough documented in this encounter [facility] note* Diagnosis Acute cough [facility]* Diagnosis URI with cough and congestion- Primary Flu-like symptoms Other general symptoms Wheezing documented in this encounter [facility] note* Diagnosis Acute right-sided low back pain with right-sided sciatica- Primary [facility]* Diagnosis Gender dysphoria- Primary Gender identity disorder in children Gender dysphoria Gender identity disorder in children Gender dysphoria Gender identity disorder in children Gender dysphoria Gender identity disorder in children Gender dysphoria- Primary Gender identity disorder in children Gender dysphoria- Primary Gender identity disorder in children Gender dysphoria- Primary Gender identity disorder in children Gender dysphoria- Primary Gender identity disorder in children Gender dysphoria- Primary Gender identity disorder in children Gender dysphoria- Primary Gender identity disorder in children Hair thinning Alopecia, unspecified Gender dysphoria- Primary Gender identity disorder in children Hair thinning Alopecia, unspecified Gender dysphoria- Primary Gender identity disorder in children Hair thinning Alopecia, unspecified Counseling on health promotion and disease prevention Other specified counseling Gender dysphoria- Primary Gender identity disorder in children Hair thinning Alopecia, unspecified Gender dysphoria- Primary Gender identity disorder in children Hair thinning Alopecia, unspecified documented in this encounter [facility] Work Phone: Summary Purpose Family History No Family History Records FoundNo Family History Records FoundNo Family History Records FoundNo Family History Records FoundNo Family History Records FoundNo Family History Records FoundNo Family History Records FoundNo Family History Records FoundNo Family History Records Found Advance Directives No Advanced Directives Records Found Advance Directive Response Recorded Date/ Time Living Will No February 08, 2023 4:12pm Power of Acid Conditioning Worker No January 4:12pm Chief Complaint and Reason for Visit Chief Complaint S69.92XD Chief Complaint periods of uncontrol led shaking at Health Concerns Assessment Noted Time PHQ-9 Depression Total Score: 10 022 12:55 PM PDT Assessment Noted Time PHQ-9 Depression Total Score: 11 023 6:37 AM PDT Assessment Noted Time PHQ-9 Depression Total Score: 6 08/23/19 24 7:27 AM PDT Assessment Noted Time PHQ-9 Depression Total Score: 6 10/17/19 25 10:36 AM PDT Additional Source Comments (unrecognized sect ion and content) No Status Records FoundNo Status Records FoundNo Status Records FoundNo Status Records FoundNo Status Records FoundNo Status Records FoundNo Status Records FoundNo Status Records FoundNo Status Records Found INFORMATION SOURCE (unrecogn ized section and content) DATE CREATED AUTHOR 08/08/2020 [facility] DATE CREATED AUTHOR AUTHOR'S ORGANIZ ATION 08/20/2020 [facility] DATE CREATED AUTHOR AUTHOR'S ORGANIZ ATION 05/02/2022 [facility] DATE CREATED AUTHOR AUTHOR'S ORGANIZ ATION 04/16/2024 [facility] DATE CREATED AUTHOR AUTHOR'S ORGANIZ ATION 07/11/2024 [facility] DATE CREATED AUTHOR AUTHOR'S ORGANIZ ATION 09/12/2024 [facility] DATE CREATED AUTHOR AUTHOR'S ORGANIZ ATION 10/16/2024 [facility] DATE CREATED AUTHOR AUTHOR'S ORGANIZ ATION 10/18/2024 [facility] DATE CREATED AUTHOR AUTHOR'S ORGANIZ ATION [facility] Care Teams (unrecognized sec tion and content) Team Status: Active Member Role Status Dates PANKAJ VIVEROS Family Provider Active No PCP Primary Care Provider Active Team Status: Inactive Member Role Status Dates No PCP Primary Care Provider Active Susie Rinaldi CNP Attending Provider Active Syrup Blender Relationship Specialty Start Date End Date Non[facility], Provider PCP - General Egg Processor 08/01/21 Syrup Blender Relationship Specialty Start Date End Date Non-[facility], Provider PCP - General Egg Processor 08/01/21 Team Status: Active Member Role Status Dates BRENT CROCKER Primary Care Provider Active Team Status: Inactive Member Role Status Dates Dr. Nash Geller MD Emergency Provider Active LIZZETTE WHELAN Primary Care Provider Active Syrup Blender Relationship Specialty Start Date End Date Non-[facility], Provider PCP - General Egg Processor 08/01/21 Syrup Blender Relationship Specialty Start Date End Date Brent Crocker [address] [place] [address] PCP - General Family Medicine, Physician 08/21/23 Syrup Blender Relationship Specialty Start Date End Date Brent Crocker MD [address] [place] [address] PCP - General Family Medicine 07/02/24 Syrup Blender Relationship Specialty Start Date End Date Brent Crocker MD [address] [place] [address] PCP - General Family Medicine 07/02/24 Syrup Blender Relationship Specialty Start Date End Date Brent Crocker MD [address] [place] [address] PCP - General Family Medicine 07/02/24 Syrup Blender Relationship Specialty Start Date End Date Brent Crocker MD [address] [place] [address] PCP - General Family Medicine 07/02/24 Syrup Blender Relationship Specialty Start Date End Date Brent Crocker MD [address] [place] [address] PCP - General Family Medicine 07/02/24 Syrup Blender Relationship Specialty Start Date End Date Brent Crocker [address] [place] [address] PCP - General Family Medicine, Physician 08/21/23 Goals (unrecognized section and content) Goals may be documented in a n alternate sectionGoals may be documented in an alternate section Reason for Visit (unrecogniz ed section and content) Reason Comments Gender Dysphoria Reason Comments Gender Affirming Hormone Therapy Reason Comments Gender Affirming Hormone Therapy Pt here for GAC follow-up, pt only taking pool, wants to discuss restarting estradiol. Pt declined STI/HIV testing. Reason Comments Cough Chest congestion, so b x 5 days Reason Comments Cough X3 days Reason Comments Cough Cough, ST and dizzy x 4 days Reason Comments Syncope Reason Comments Low Back Pain X1 day, R side worse and radiating into R thigh Reason Comments Gender Affirming Hormone Therapy STI Screening Source Comments (unrecognize d section and content) In the event this informatio n is protected by the Federal Confidentiality of Alcohol and Drug Abuse Patient Records regulations: The Federal rules restrict any use of the information to criminally investigate or prosecute any alcohol or drug abuse patient.[facility] the event this information is protected by the Federal Confidentiality of Alcohol and Drug Abuse Patient Records regulations: The Federal rules restrict any use of the information to criminally investigate or prosecute any alcohol or drug abuse patient.[facility] Institute[facility] the event this information is protected by the Federal Confidentiality of Alcohol and Drug Abuse Patient Records regulations: The Federal rules restrict any use of the information to criminally investigate or prosecute any alcohol or drug abuse patient.[facility] InstituteIn the event this information is protected by the Federal Confidentiality of Alcohol and Drug Abuse Patient Records regulations: The Federal rules restrict any use of the information to criminally investigate or prosecute any alcohol or drug abuse patient.[facility] InstituteIn the event this information is protected by the Federal Confidentiality of Alcohol and Drug Abuse Patient Records regulations: The Federal rules restrict any use of the information to criminally investigate or prosecute any alcohol or drug abuse patient.[facility] InstituteIn the event this information is protected by the Federal Confidentiality of Alcohol and Drug Abuse Patient Records regulations: The Federal rules restrict any use of the information to criminally investigate or prosecute any alcohol or drug abuse patient.[facility] InstituteIn the event this information is protected by the Federal Confidentiality of Alcohol and Drug Abuse Patient Records regulations: The Federal rules restrict any use of the information to criminally investigate or prosecute any alcohol or drug abuse patient.[facility] InstituteIn the event this information is protected by the Federal Confidentiality of Alcohol and Drug Abuse Patient Records regulations: The Federal rules restrict any use of the information to criminally investigate or prosecute any alcohol or drug abuse patient.[facility] FOR RECORDS PERTAINING TO PATIENTS WHO ARE OR HAVE BEEN ENROLLED IN A CHEMICAL DEPENDENCY/SUBSTANCEABUSE PROGRAM, SOME INFORMATION MAY BE OMITTED. This clinical summary was aggregated from multiple sources. Caution should be exercised in using it in the provision of clinical care. This summary normalizes information from multiple sources, and as a consequence, information in this document may materially change the coding, format and clinical context of patient data. In addition, data may be omitted in some cases. CLINICAL DECISIONS SHOULD BE BASED ON THE PRIMARY CLINICAL RECORDS. [facility] [employer] [facility]. provides no warranty or guarantee of the accuracy or completeness of information in this document.
[2024-11-06 21:00] VITALS: BP 132/93; PULSE 68; RESP 20; O2SAT 100
[2024-11-06 21:01] LABS: Troponin T High Sens 2 HR 9 ng/L (<=22)
[2024-11-06 21:07] VITALS: BP 132/93; PULSE 72; RESP 20; TEMP 36.7; O2SAT 100
== END 2024-11-06 21:13 | disposition home or self-care (01) ==
PROVIDERS: Physician Assistant; Emergency Provider Emergency Medicine; PCP Internal Medicine; Visit Provider Emergency Medicine
DX: R07.89 Other chest pain (principal); F41.9 Anxiety disorder, unspecified; I10 Essential (primary) hypertension; E78.00 Pure hypercholesterolemia, unspecified; K21.9 Gastro-esophageal reflux disease without esophagitis; Z79.899 Other long term (current) drug therapy
CPT/HCPCS: 71046; 80048; 84484; 85025; 93005; 99284; A4216

== ENCOUNTER → 2024-12-18 | Outpatient (CLI) | payer OTHER, SELFPAY ==
[2024-12-18 15:54] LABS: Hematocrit 41.8 % (40-54); Hemoglobin 14.0 g/dL (13.0-16.5); Immature Granulocytes Count 0.010 X10^3/uL (0.0-0.0); Mean Corp Hgb Conc 33.5 g/dL (32-36); Mean Corpuscular Volume 88.2 fL (80-94); Mean Platelet Vol. 9.8 fl (6.2-12.0); NRBC Flagged by Analyzer 0 % (0-5); Platelet Count 319 K/mm3 (150-450); RBC Distribution Width CV 14.1 % (11.6-14.6); RBC Distribution Width SD 45.6 fl (35.1-43.9); Red Blood Count 4.74 M/mm3 (4.6-6.2); White Blood Count 5.5 K/mm3 (4.4-11.0)
[2024-12-18 16:35] LABS: AST(SGOT) 28 U/L (<=37); Alanine Aminotransfer ALT/SGPT 35 U/L (<=46); Albumin, Serum 4.3 g/dL (3.5-5.0); Alkaline Phosphatase 90 U/L (40-129); Anion Gap 12 (5-15); BUN 19 mg/dL (4-19); BUN/Creat Ratio 17.5 RATIO (10-20); CPK Total, Creatine Kinase 411 U/L (24-195); Calcium,Total 9.5 mg/dL (7.6-11.0); Carbon Dioxide 20.5 mmol/L (21.0-32.0); Chloride 102 mmol/L (98-108); Globulin 2.9 g/dL (2.2-4.2); Glucose 94 mg/dL (70-99); Magnesium 2.2 mg/dL (1.5-2.2); Potassium 4.4 mmol/L (3.3-5.1)
[2024-12-21 14:08] LABS: ANTINUCLEAR ANTIBODIES DIRECT Negative (Negative)
== END | disposition home or self-care (01) ==
LOC: BIMLAB 11:18
PROVIDERS: PCP Internal Medicine; Referring Provider Physician Assistant; Visit Provider Physician Assistant
DX: I10 Essential (primary) hypertension (principal); M79.10 Myalgia, unspecified site; R42 Dizziness and giddiness
CPT/HCPCS: 36415; 80053; 82550; 83735; 84443; 85025; 86038; 86225

== ENCOUNTER → 2024-12-28 | Outpatient (CLI) | payer OTHER, SELFPAY ==
[2024-12-28 15:15] LABS: CPK Total, Creatine Kinase 149 U/L (24-195)
== END | disposition home or self-care (01) ==
LOC: LAB 13:29
PROVIDERS: PCP Internal Medicine; Referring Provider Physician Assistant; Visit Provider Physician Assistant
DX: M79.10 Myalgia, unspecified site (principal)
CPT/HCPCS: 36415; 82550

== ENCOUNTER → 2024-12-31 | Outpatient (CLI) | payer OTHER, SELFPAY ==
--- NOTE | 2024-12-31 12:45 | STRESSREP ---
Stress Test Report Exercise stress test. 49-year-old man with a history of chest pain Stress protocol: Resting EKG demonstrates normal sinus rhythm with a rate of 70 bpm resting blood pressure is 118/78 mmHg. The patient exercised according to the regular Navdeep protocol for a total duration of 7 minutes attaining a maximum heart rate of 148 bpm which was 87% of maximum predicted heart rate; the maximum workload was 10 METS metabolic equivalents. At rest there were no ST or T wave changes noted to suggest ischemia and at peak exercise upsloping ST changes only were noted which did not meet the criteria for ischemia. No clinical angina was noted the test was terminated due to the target heart rate being achieved/fatigue. The peak blood pressure was 144/84 mmHg. Rate-pressure product was 19,000 Conclusion: Stress test with no EKG criteria for ischemia at a high workload. No clinical angina. No arrhythmias noted.
--- OUTSIDE RECORDS SUMMARY | 2024-12-31 17:09 | XMS RPT_ITS | CCD ---
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 Machine Operator Name Role Phone PCP, No Primary Care Provider UnavailLULU Mercado Attending Provider PCP, No Primary Care Unavailable Susie Rinaldi Attending Unavailable [facility], Provider Primary Care Provider Unav ailable [facility], Provider Primary Care Provider Unav ailable Brent Crocker Primary Care Provider Unavailable Primary Care Provider UnavailOPAL Layton Referring Unavailab Brent Lepe MD Primary Care Provider PANKAJ CALDERON Referring Unavailable PANKAJ CALDERON Attending [...] Primary Care Unavailable BRENT CROCKER Attending Unavailable ZOYA OPAL Admitting Unavailable ADELSO KENNYLETT Attending Unavailable ZOYA OPAL Consulting Unavailable BRENT CROCKER Primary Care Unavailable Manuel QUEZADA, Keke Bundy Primary Care Provider LIZZETTE, EDWARD R Primary Care Unavailable MYESHA ORTIZ Referring Unavailable OLEGHE, EFEWONGBE B Primary Care Unavailable BUDDY TEMPLE Attending Unavailable BRENT CROCKER R Primary Care Unavailable BRENT CROCKER R Primary Care Unavailable HOLDEN ROGERS Referring Unavailable BRENT CROCKER R Primary Care Unavailable Layo Torres Attending Unavailable Deni HERR, Layo Referring Unavailable Oleghe, Efewongbe Primary Care Unavailable Deni HERR, Layo Referring Unavailable Deni HERR, Layo Attending Unavailable Oleghe, Efewongbe Primary Care Unavailable Aspen Montgomery Attending Unavailable Care Physician, No Primary Primary Care Unava ilable Aspen Montgomery Attending Unavailable Care Physician, No Primary Primary Care Unava ilable RONDA IYER Primary Care Unavailable Aspen Montgomery Attending Unavailable Aspen Montgomery Attending Unavailable Aspen Montgomery Attending Unavailable Care Physician, No Primary Primary Care Unava ilable Aspen Montgomery Attending Unavailable Care Physician, No Primary Primary Care Unava ilable Oleghe, Efewongbe Attending Unavailable Aspen Montgomery Attending Unavailable Oleghe, Efewongbe Primary Care Unavailable Layo Torres Attending Unavailable Oleghe, Efewongbe Referring Unavailable Oleghe, Efewongbe Primary Care Unavailable Deni HERR, Layo Attending Unavailable Oleghe, Efewongbe Referring Unavailable Oleghe, Efewongbe Primary Care Unavailable Deni HERR, Layo Attending Unavailable Deni HERR, Layo Referring Unavailable Oleghe, Efewongbe Primary Care Unavailable Oleghe, Efewongbe Primary Care Unavailable Oleghe, Efewongbe Attending Unavailable Oleghe, Efewongbe Referring Unavailable Wayvickey HERR, Layo Referring Unavailable Deni HERR, Layo Attending Unavailable Oleghe, Efewongbe Primary Care Unavailable Oleghe, Efewongbe Primary Care Unavailable Rakesh Broderick Attending Unavailable Nash Geller Attending Unavailable MCINTURF, RONDA Primary Care Unavailable Allergies Allergy Classification Reported Allergen(s) Allergy Type Date of Onset Reaction(s) Facility (1 source) LEVOQUIN; Translations: [LEVOQUIN] Propensity to adverse reactions (disorder) 12-11-19 13 [facility] Repository (8 sources) FLUoxetine; Translations: [FLUOXETINE] Drug Allergy 08-16-19 17 Other: See Comments [facility] Work Phone: (16 sources) fluvoxaMINE; Translations: [FLUVOXAMINE] Drug Allergy 12-07-19 16 Other: See Comments [facility] Phone: (19 sources) Latex; Translations: [LATEX, NATURAL RUBBER] Propensity to adverse reactions to drug 08-14-19 17 Rash [facility] Phone: (19 sources) levoFLOXacin; Translations: [LEVOFLOXACIN] Drug Allergy 01-22-20 14 Anxiety, Mental Status Change, Other: See Comments [facility] Phone: (16 sources) NITROFURANTOIN, MACROCRYSTALS / Nitrofurantoin, Monohydrate; Translations: [NITROFURANTOIN MONOHYD/M-CRYST] Drug Allergy 08-21-19 17 Other: See Comments [facility] Phone: (4 sources) Desvenlafaxine Drug Allergy 01-03-20 16 [facility] Phone: (1 source) Latex Allergy to substance 02-09-20 23 Rash [facility] (1 source) Latex Drug allergy (disorder) 12-19-19 25 [facility] Repository (1 source) levoFLOXacin Drug Allergy 12-19-19 25 [facility] Repository Medications Current Medications Medication Drug Class(es) Dates Sig (Normalized) Sig (Original) [id number] 200 actuat albuterol 0.09 mg/actuat metered dose inhaler (11 sources) beta2-Adrenergic Agonist Start: 06-17-2024 take 2 [...] above: Inhale 180 mcg into the lungs ARIPiprazole 2 mg oral tablet (9 sources) Atypical Antipsychotic Start: 06-04-19 ARIPiprazole (ABILIFY) 2 mg tablet Take 2 mg by mouth. 06/04/2024 Active Comment on above: Take 2 mg by mouth. benzonatate 100 mg oral capsule (4 sources) [...] Azole Antifungal, Corticosteroid Start: 10-14-19 End: 10-14-19 clotrimazole-betame thasone (LOTRISONE) 1-0.05 % cream Apply topically twice a day. 10/13/2024 10/13/2025 Active Comment on above: Apply topically twic e a day. busPIRone hydrochloride 15 mg oral tablet (9 sources) take 1 tablet by mouth twice daily busPIRone (BUSPAR) 15 mg tablet Take 15 mg by mouth two times a day. Active Comment on above: Take 15 mg by mouth 2 (two) times a day clonazePAM 0.5 mg oral tablet (14 sources) Benzodiazepine Start: 11-20-19 clonazePAM (KLONOPIN) 0.5 mg tablet Take 0.25 mg by mouth as needed. 11/19/2018 Active Start: 06-20-2010 clonazePAM (KL ONOPIN) 0.5 mg tablet Take 0.5 mg by mouth 06/20/2010 Active Comment on above: Take 0.5 mg by mouth estradiol 2 mg oral tablet (15 sources) Estrogen Start: 10-16-2024 take 2 tablets [...] 90 Tablet 3 11/21/2022 Active Start: 01-20-2020 estradiol (EST RACE) 2 mg tablet Take by mouth. 01/20/2020 Active Start: 01-20-2020 End: 11-21-2022 estradiol (ESTRACE) 2 mg tab let Take by mouth. 01/20/2020 Active Comment on above: Take 1 Tablet by minerva 2 (two) times daily Take 4mg in the AM a nd 2mg in the PM by mouth daily TAKE 2 TABLETS BY MO UTH EVERY MORNING AND TAKE 1 TABLET BY MOUTH EVERY EVENING Take 2 Tablets by mo uth every morning AND 1 Tablet every evening. famotidine 20 mg oral tablet (13 sources) Histamine-2 Receptor Antagonist Start: 4 famotidine (PEPCID) 20 mg tablet Take 20 mg by mouth. 06/14/2023 Active finasteride 5 mg oral tablet (13 sources) 5-alpha Reductase Inhibitor Start: 5 take 1 tablet by mouth once daily [...] once daily. FLUoxetine 20 mg oral capsule (20 sources) Serotonin Reuptake Inhibitor Start: 04-18-2024 FLUoxetine (PROZAC) 20 mg capsule take 1 capsule by mouth IN ADDITION TO TWO 40 MG CAPSULES once da... (REFER TO PRESCRIPTION NOTES). 04/18/2024 Active take 2 capsules by mouth once da tahir FLUoxetine (PROZAC) 40 mg capsule Take 80 mg by mouth once daily. Active take 1 capsule by mouth twice da tahir FLUoxetine (PROZAC) 40 mg capsule Take 40 mg by mouth 2 (two) times daily Active Comment on above: Take 40 mg by mouth 2 (two) times daily hydrOXYzine hydrochloride 25 mg oral tablet (9 sources) Antihistamine Start: 11-01-2023 End: 10-29-2024 hydrOXYzine [...] daily Take 1 Tablet by minerva th 1 time each day Take 1 [...] mg by mouth once daily as needed brexpiprazole 1 mg oral tablet (7 sources) [...] Take 1.5 Tablets by mouth once daily cholecalciferol 0.05 mg oral capsule (9 sources) Vitamin D Start: 12-24-2021 take 1 capsule by mouth once daily cholecalciferol, vitamin D3, 50 mcg (2,000 unit) capsule Take 1 Capsule by mouth once daily 12/24/2021 Active End: 07-02-2024 take 1 tablet by mouth once daily cholecalciferol (VITAMIN D3) 5,000 unit tab Take 5,000 Units by mouth once daily. 07/02/2024 Discontinued Comment on above: Take 1 Capsule by mo [facility] once daily esomeprazole 40 mg delayed release oral capsule (11 sources) Proton Pump Inhibitor Start: take 1 [...] 40 mg by mouth polyethylene glycol 3350 15727 mg powder for oral solution (5 sources) Osmotic Laxative End: 07-02-2024 polyethylene glycol 3350 (MIRALAX) 17 gram/dose powder Take by mouth at bedtime as needed. 07/02/2024 Discontinued prazosin 2 mg oral capsule (13 sources) alpha-Adrenergic Cadence Start: 01-14-2020 prazosin (MINIPRESS) [...] with panic disorder] Onset: 12-19-2012 01-20-2020 Chronic Conditions associated with dizziness or vertigo (1 source) Dizziness and giddiness; Translations: [Dizziness and giddiness] Onset: 12-18-2024 Episodic Essential hypertension (1 source) Essential (primary) hypertension; Translations: [Essential (primary) hypertension] Onset: 12-24-2024 Chronic Genitourinary symptoms and ill-defined conditions (2 [...] single episode, unspecified] Onset: 08-12-2010 01-20-2020 Chronic Nonspecific chest pain (4 sources) Chest pain; Translations: [Chest pain, unspecified] Onset: 11-06-2024 11-06-2024 Episodic Other aftercare (1 source) Drug therapy finding; Translations: [prison (current) use of other agents affecting estrogen receptors and estrogen levels] 02-08-2023 Episodic Other connective tissue disease (2 sources) Fibromyalgia; Translations: [Fibromyalgia] Onset: 08-26-2024 Episodic Other connective tissue disease (4 sources) Myalgia, unspecified site; Translations: [Myalgia, unspecified site] Onset: 12-11-2023 Episodic Other lower respiratory disease (3 sources) [...] [Other general symptoms and signs] 07-04-2024 Episodic Syncope (3 sources) Syncope and collapse; Translations: [Syncope and collapse] Onset: 05-02-2023 Episodic Unclassified (1 source) Acute cough; Translations: [...] Translations: [Other fatigue] Onset: 12-11-2023 Episodic Other nervous system disorders [...] sciatica, right side] Onset: 07-10-2024 07-09-2024 Episodic Results Test Name Value Interpretation Reference Range Facility CPK Total, Creatine Kinaseon 12-28-2024 CPK TOTAL 149 U/L Normal 24- [facility] Comment on above: Performed By: #### L 501.3620 ####[facility] [address] [facility] [address] [place], [place], [id number] PHILLIP w/ Reflex Mult Confirmon 12-23-2024 ANTI-DNA (DS)AB TNP Normal [facility] Comment on above: Performed By: #### L 500.4050, L501.9520, L100.0100, L501.3620, L501.5200, L3100.5450 ####[facility] [address] [place], [address] ANTI-SS-A TNP Normal [facility] Comment on above: Performed By: #### L 500.4050, L501.9520, L100.0100, L501.3620, L501.5200, L3100.5450 ####[facility] [address] [place], [address] ANTI-SS-B TNP Normal [facility] Comment on above: Performed By: #### L 500.4050, L501.9520, L100.0100, L501.3620, L501.5200, L3100.5450 ####[facility] [address] [place], [address] CBC W/Diff, Automatedon 08-0 1-2024 Absolute Lymph 2.08 X10 3/uL Normal 0.83-4.51 [facility] Comment on above: Performed By: #### L 500.4050, L501.9520, L100.0100, L501.3620, L501.5200, L3100.5450 ####[facility] [address] [place], [address] Absolute Neut 2.5 X10 3/uL Normal 2.0-7.7 [facility] Comment on above: Performed By: #### L 500.4050, L501.9520, L100.0100, L501.3620, L501.5200, L3100.5450 ####[facility] [address] [place], [address] Basophils/100 WBC (Bld) 1.4 % High 0-1 [facility] Comment on above: Performed By: #### L 500.4050, L501.9520, L100.0100, L501.3620, L501.5200, L3100.5450 ####[facility] [address] [place], [address] Eosinophils/100 WBC (Bld) 6.0 % High 0-5 [facility] Comment on above: Performed By: #### L 500.4050, L501.9520, L100.0100, L501.3620, L501.5200, L3100.5450 ####[facility] [address] [place], [address] Erythrocyte distribution width (RBC) [Ratio] 14.1 % Normal 11.6-14.6 [facility] Comment on above: Performed By: #### L 500.4050, L501.9520, L100.0100, L501.3620, L501.5200, L3100.5450 ####[facility] [address] [place], [address] Hematocrit (Bld) [Volume fraction] 41.8 % Normal 40-54 [facility] Comment on above: Performed By: #### L 500.4050, L501.9520, L100.0100, L501.3620, L501.5200, L3100.5450 ####[facility] [address] [place], [address] Hemoglobin (Bld) [Mass/Vol] 14.0 g/dL Normal 13.0-16.5 [facility] Comment on above: Performed By: #### L 500.4050, L501.9520, L100.0100, L501.3620, L501.5200, L3100.5450 ####[facility] [address] [place], [address] IG% 0.200 Normal 0.0-0.9 [facility] Comment on above: Result Comment: IG% - Immature Granulocytes (promyelocytes, myelocytes and metamyelocytes) > 1% indicates that a LEFT SHIFT is Present. Performed By: #### L 500.4050, L501.9520, L100.0100, L501.3620, L501.5200, L3100.5450 ####[facility] [address] [place], [address] Lymphocytes/100 WBC (Bld) 37.5 % Normal 19-41 [facility] Comment on above: Performed By: #### L 500.4050, L501.9520, L100.0100, L501.3620, L501.5200, L3100.5450 ####[facility] [address] [place], [address] MCH (RBC) [Entitic mass] 29.5 pg Normal 27.0-32.0 [facility] Comment on above: Performed By: #### L 500.4050, L501.9520, L100.0100, L501.3620, L501.5200, L3100.5450 ####[facility] [address] [place], [address] MCHC (RBC) [Mass/Vol] 33.5 g/dL Normal 32-36 [facility] Comment on above: Performed By: #### L 500.4050, L501.9520, L100.0100, L501.3620, L501.5200, L3100.5450 ####[facility] [address] [place], [address] MCV (RBC) [Entitic vol] 88.2 fL Normal 80-94 [facility] Comment on above: Performed By: #### L 500.4050, L501.9520, L100.0100, L501.3620, L501.5200, L3100.5450 ####[facility] [address] [place], [address] Monocytes/100 WBC (Bld) 9.4 % Normal 0-10 [facility] Comment on above: Performed By: #### L 500.4050, L501.9520, L100.0100, L501.3620, L501.5200, L3100.5450 ####[facility] [address] [place], [address] Neutrophils/100 WBC (Bld) 45.5 % Low 47-70 [facility] Comment on above: Performed By: #### L 500.4050, L501.9520, L100.0100, L501.3620, L501.5200, L3100.5450 ####[facility] [address] [place], [address] Nucleated RBC (Bld) [#/Vol] 0 10*3/uL Normal 0-5 [facility] Comment on above: Performed By: #### L 500.4050, L501.9520, L100.0100, L501.3620, L501.5200, L3100.5450 ####[facility] [address] [place], [address] Platelet mean volume (Bld) [Entitic vol] 9.8 fL Normal 6.2-12.0 [facility] Comment on above: Performed By: #### L 500.4050, L501.9520, L100.0100, L501.3620, L501.5200, L3100.5450 ####[facility] [address] [place], [address] Platelets (Bld) [#/Vol] 319 10*3/uL Normal 150-450 [facility] Comment on above: Performed By: #### L 500.4050, L501.9520, L100.0100, L501.3620, L501.5200, L3100.5450 ####[facility] [address] [place], [address] RBC (Bld) [#/Vol] 4.74 10*6/uL Normal 4.6-6.2 [facility] Comment on above: Performed By: #### L 500.4050, L501.9520, L100.0100, L501.3620, L501.5200, L3100.5450 ####[facility] [address] [place], [address] RDW SD 45.6 fl High 35.1-43.9 [facility] Comment on above: Performed By: #### L 500.4050, L501.9520, L100.0100, L501.3620, L501.5200, L3100.5450 ####[facility] [address] [place], [address] WBC (Bld) [#/Vol] 5.5 10*3/uL Normal 4.4-11.0 [facility] Comment on above: Performed By: #### L 500.4050, L501.9520, L100.0100, L501.3620, L501.5200, L3100.5450 ####[facility] [address] [place], [address] CPK Total, Creatine Kinaseon 12-18-2024 CPK TOTAL 411 U/L High 24-195 [facility] Comment on above: Performed By: #### L 500.4050, L501.9520, L100.0100, L501.3620, L501.5200, L3100.5450 ####[facility] [address] [place], [address] Comprehensive Metabolic Prof ilon 12-18-2024 Albumin [Mass/Vol] 4.3 g/dL Normal 3.5-5.0 [facility] Comment on above: Performed By: #### L 500.4050, L501.9520, L100.0100, L501.3620, L501.5200, L3100.5450 ####[facility] [address] [place], [address] Albumin/Globulin [Mass ratio] 1.5 {ratio} Normal 0.9-2.4 [facility] Comment on above: Performed By: #### L 500.4050, L501.9520, L100.0100, L501.3620, L501.5200, L3100.5450 ####[facility] [address] [place], [address] ALK PHOS 90 U/L Normal 40-129 [facility] Comment on above: Performed By: #### L 500.4050, L501.9520, L100.0100, L501.3620, L501.5200, L3100.5450 ####[facility] [address] [place], [address] ALT [Catalytic activity/Vol] 35 U/L Normal <=46 [facility] Comment on above: Performed By: #### L 500.4050, L501.9520, L100.0100, L501.3620, L501.5200, L3100.5450 ####[facility] [address] [place], [address] AST [Catalytic activity/Vol] 28 U/L Normal <=37 [facility] Comment on above: Performed By: #### L 500.4050, L501.9520, L100.0100, L501.3620, L501.5200, L3100.5450 ####[facility] [address] [place], [address] Bilirubin [Mass/Vol] 0.52 mg/dL Normal 0.00-1.30 [facility] Comment on above: Performed By: #### L 500.4050, L501.9520, L100.0100, L501.3620, L501.5200, L3100.5450 ####[facility] [address] [place], [address] BUN/CRE 17.5 RATIO Normal 10-20 [facility] Comment on above: Performed By: #### L 500.4050, L501.9520, L100.0100, L501.3620, L501.5200, L3100.5450 ####[facility] [address] [place], [address] Calcium [Mass/Vol] 9.5 mg/dL Normal 7.6-11.0 [facility] Comment on above: Performed By: #### L 500.4050, L501.9520, L100.0100, L501.3620, L501.5200, L3100.5450 ####[facility] [address] [place], [address] Chloride [Moles/Vol] 102 mmol/L Normal 98-108 [facility] Comment on above: Performed By: #### L 500.4050, L501.9520, L100.0100, L501.3620, L501.5200, L3100.5450 ####[facility] [address] [place], [address] CO2 [Moles/Vol] 20.5 mmol/L Low 21.0-32.0 [facility] Comment on above: Performed By: #### L 500.4050, L501.9520, L100.0100, L501.3620, L501.5200, L3100.5450 ####[facility] [address] [place], [address] Creatinine [Mass/Vol] 1.11 mg/dL Normal 0.70-1.20 [facility] Comment on above: Performed By: #### L 500.4050, L501.9520, L100.0100, L501.3620, L501.5200, L3100.5450 ####[facility] [address] [place], [address] GAP 12 Normal 5-15 [facility] Comment on above: Performed By: #### L 500.4050, L501.9520, L100.0100, L501.3620, L501.5200, L3100.5450 ####[facility] [address] [place], [address] GFR/1.73 sq M.predicted among non-blacks MDRD (S/P/Bld) [Vol rate/Area] 80 mL/min/{1.73_m2} Normal >60 [facility] Comment on above: Result Comment: mL/m in/1.73m2 CKD-EPI Creatinine Equation (2020) Performed By: #### L 500.4050, L501.9520, L100.0100, L501.3620, L501.5200, L3100.5450 ####[facility] [address] [place], [address] Globulin (S) [Mass/Vol] 2.9 g/dL Normal 2.2-4.2 [facility] Comment on above: Performed By: #### L 500.4050, L501.9520, L100.0100, L501.3620, L501.5200, L3100.5450 ####[facility] [address] [place], [address] Glucose [Mass/Vol] 94 mg/dL Normal 70-99 [facility] Comment on above: Performed By: #### L 500.4050, L501.9520, L100.0100, L501.3620, L501.5200, L3100.5450 ####[facility] [address] [place], [address] Potassium [Moles/Vol] 4.4 mmol/L Normal 3.3-5.1 [facility] Comment on above: Performed By: #### L 500.4050, L501.9520, L100.0100, L501.3620, L501.5200, L3100.5450 ####[facility] [address] [place], [address] Sodium [Moles/Vol] 134 mmol/L Normal 133-145 [facility] Comment on above: Performed By: #### L 500.4050, L501.9520, L100.0100, L501.3620, L501.5200, L3100.5450 ####[facility] [address] [place], [address] T PROT 7.1 g/dL Normal 5.9-8.4 [facility] Comment on above: Performed By: #### L 500.4050, L501.9520, L100.0100, L501.3620, L501.5200, L3100.5450 ####[facility] [address] [place], [address] Urea nitrogen [Mass/Vol] 19 mg/dL Normal 4-19 [facility] Comment on above: Performed By: #### L 500.4050, L501.9520, L100.0100, L501.3620, L501.5200, L3100.5450 ####[facility] [address] [place], [address] Internal Medicine Office Vis iton 12-18-2024 Internal Medicine Office Visit [facility] [address] [place] [address] [address] [place] [address] OFFICE VISIT Date of Service: 12/18/24 MR#: [id number] Acct: [id number] Name: BRANDI CARRENOREUBEN FERNANDEZO Rep #: [id number] : 1975 Provider: CARMENZA Manzano Age/Sex: 49/M Location: [facility] Status: Signed Intake Vital Signs 12/09/24 15:11 12/17/24 11:19 12/18/24 10:19 Height 5 ft 6 in 5 ft 6 in 5 ft 6 in Weight: 210 lb 6 oz 209 lb BMI 33.9 33.7 BP 128/70 H 110/80 Blood Pressure Location Lt brachial Lt brachial Position Sitting Sitting Respiration 18 16 Pulse 68 67 Pulse Source Monitor Monitor Temp 97.7 F L 96.9 F L Temp Source Temporal Temporal Pulse Oximetry (%) 98 98 Oxygen Delivery Method room air room air Intake Visit Reasons: FOLLOW UP FROM [facility] Chief Complaint: FU FROM [facility] Is patient in pain?: Yes (GENERALIZED PAIN) Pain scale (1-10): 3 Allergies latex Allergy (Verified 12/18/24 10:14) Rash levofloxacin (From Levaquin) Allergy (Verified 12/18/24 10:14) Shortness of breath Medications ???Medication ???Instructions ???Recorded ???Confirmed ???Type finasteride 5 mg tablet 5 mg PO QDAY 06/04/24 12/18/24 His tory estradiol 2 mg tablet 6 mg PO QDAY 10/30/24 12/18/24 His tory buspirone 15 mg tablet 15 mg PO BID #180 tabs 11/04/24 Rx clonazepam 0.5 mg tablet 0.5 mg PO QHS PRN anxiety #30 tabs 11/04/24 12/18/24 Rx fluoxetine 40 mg capsule 80 mg (2 x 40 mg) PO QDAY #180 cap s 11/04/24 12/18/24 Rx hydroxyzine HCl 25 mg tablet 25 mg PO QDAY #90 tabs 11/04/24 Rx prazosin 2 mg capsule 2 mg PO QHS #90 caps 11/04/24 0806/13 Rx budesonide-formoterol HFA 160 2 puff inhalation BID #10.2 grams 12/09/24 12/18/24 Rx mcg-4.5 mcg/actuation aerosol inhaler (Symbicort) esomeprazole magnesium 40 mg 40 mg PO QAM #90 caps 12/16/2406/13 Rx capsule,delayed release famotidine 20 mg tablet 20 mg PO DAILY #90 tabs 12/16/24 0 12/18/24 Rx spironolactone 50 mg tablet 100 mg PO QDAY 12/18/24 12/18/24 H istory Nurse's Note: PATIENT REPORTS THAT A 'LIST' WAS TO BE AT THIS OFFICE FROM [facility] STATING THINGS THAT NEED TO BE DISCUSSED. [facility] Medical History Blood glucose elevated Encounter to establish care [...] never substance use type: does not use Questionnaire PQH-9 BMS Over the last 2 weeks, how often have you been bothered by any of the following problems? 1. Little interest or pleasure in doing things: not at all 2. Feeling down, depressed, or hopeless: not at all 3. Trouble falling or staying asleep, or sleeping too much: nearly every day 4. Feeling tired or having little energy: nearly every day 5. Poor appetite or overeating: nearly every day 6. Feeling bad about yourself - or that you are a failure or have let yourself and your family down: not at all 7. Trouble concentrating on things, such as reading the newspaper or watching television: more than half the days 8. Moving or speaking so slowly that other people could have noticed? - Or the opposite - being so fidgety or restless that you have been moving around a lot more than usual: not at all 9. Thoughts that you would be better off or of hurting yourself in some way: not at all Total score: 11 Source: Developed by Drs. Tam Flannery, Charisma Flores, Sajan Burch and colleagues, with an educational noe from [employer]. DAVID-7 BMS DAVID-7 Feeling nervous, anxious, or on edge: 3 = Nearly every day Not being able to stop or control worryin = Not at all Worrying too much about different things: 1 = Several days Trouble relaxin = Several days Being so restless that it is hard to sit still: 0 = Not at all Becoming easily annoyed or irritable: 3 = Nearly every day Feeling afraid as if something awful might happen: 2 = More than half the days Total DAVID-7 score (0-4 normal; 5-9 mild; 10-14 moderate; 15-21 severe): 10 Source: Developed by Drs. Tam Flannery, Charisma Flores, Sajan Burch and colleagues, with an educational noe from [employer] (more content not included)... Normal [facility] Magnesiumon 12-18-2024 Magnesium [Mass/Vol] 2.2 mg/dL Normal 1.5-2.2 [facility] Comment on above: Performed By: #### L 500.4050, L501.9520, L100.0100, L501.3620, L501.5200, L3100.5450 ####[facility] [address] [place], [address] Thyroid Stim Hormone (TSH)on 12-18-2024 TSH 3.760 uIU/mL Normal 0.300-4.200 [facility] Comment on above: Performed By: #### L 500.4050, L501.9520, L100.0100, L501.3620, L501.5200, L3100.5450 ####[facility] [address] [place], [place], [address] Internal Medicine Office Vis iton 12-09-2024 Internal Medicine Office Visit [facility] [address] [place] [address] [address] [place], [place] [address] OFFICE VISIT Date of Service: 12/09/24 MR#: [id number] Acct: [id number] Name: REUBEN SAPP Rep #: [id number] : 1975 Provider: CARMENZA Manzano Age/Sex: 49/M Location: [facility] Status: Signed Intake Vital Signs 11/06/24 17:31 12/09/24 15:11 Height 5 ft 6 in 5 ft 6 in Weight: 210 lb 6 oz BMI 33.9 BP 128/70 H Blood Pressure Location Lt brachial Position Sitting Respiration 18 Pulse 68 Pulse Source Monitor Temp 97.7 F L Temp Source Temporal Pulse Oximetry (%) 98 Oxygen Delivery Method room air Intake Visit Reasons: [facility] FOLLOW UP Chief Complaint: FU Corporate Claims Examiner Required: No Accompanied by: Self Is patient in pain?: No Allergies latex Allergy (Verified 12/09/24 15:01) Rash levofloxacin (From Levaquin) Allergy (Verified 12/09/24 15:01) Shortness of breath Medications ???Medication ???Instructions ???Recorded ???Confirmed ???Type esomeprazole magnesium 40 mg 40 mg PO QAM 11/19/23 12/09/24 His tory capsule,delayed release famotidine 20 mg tablet 20 mg PO DAILY 11/19/23 12/09/24 H istory spironolactone 50 mg tablet 50 mg PO QDAY 11/19/23 12/09/24 Hi story finasteride 5 mg tablet 5 mg PO QDAY 06/04/24 12/09/24 His tory estradiol 2 mg tablet 6 mg PO QDAY 10/30/24 12/09/24 His tory buspirone 15 mg tablet 15 mg PO BID #180 tabs 11/04/24 Rx clonazepam 0.5 mg tablet 0.5 mg PO QHS PRN anxiety #30 tabs 11/04/24 12/09/24 Rx fluoxetine 40 mg capsule 80 mg (2 x 40 mg) PO QDAY #180 cap s 11/04/24 12/09/24 Rx hydroxyzine HCl 25 mg tablet 25 mg PO QDAY #90 tabs 11/04/24 Rx mirabegron 25 mg tablet,extended 50 mg PO QDAY 11/04/24 12/09/24 Hi story release 24 hr (Myrbetriq) prazosin 2 mg capsule 2 mg PO QHS #90 caps 11/04/2411/18 Rx budesonide-formoterol HFA 160 2 puff inhalation BID #10.2 grams 12/09/24 12/09/24 Rx mcg-4.5 mcg/actuation aerosol inhaler (Symbicort) Have you fallen in the past year?: No Nurse's Note: ER F/U. Nauseous and coughing are current symptoms. Was seen at hospital for chest pain. [facility] Medical History (Updated 12/10/24 @ 09:18 by Layo HERR, PA) Blood glucose elevated Encounter to establish care [...] does not use HPI HPI Chief Complaint: FU Details: REUBEN CARRENO, is a 49 M who presents to the office today for f/u from the Hospital. He states that he had the pains on and off for a couple week prior to going to the ED. Pains were located in the center of the chest and described as a pinching of skin. He denies having any other symptoms with this pain (denies SOB, exertional symptoms, diaphoresis, nausea, dizziness, fatigue). He states that he noticed the pains with both activity as well as while resting / seated. He could not recognize any pattern to the pains. He states that there is no significant family history of heart disease. Father has high blood pressure and that is all. HE denies any decreased in stamina or any exertional dyspnea with regular ADLS or light activity. He does not get regular strenuous activity. He does have a history of significant reflux / GERD. He has been on medication (Nexium and and famotidine) for 2 years now but has been on other meds prior to this combination. He had an endoscopy done 2 years due to his chronic reflux. He states that he was told there was an abnormality that would likely lead to surgery at the same time he can't remember what that abnormality was. HE never did f/u with them for this. He has not had any changes to his reflux recently. He does have a history of anxiety / mental healthy issues. He feels like the medication that he is on controls this pretty well. He has not had any recent changes to this that he is aware of. Patient states that he was diagnosed with asthma back in 2017. He was on inhalers that included Symbicort and other meds. He has not used any of his maintenance inhalers for probably 2-3 years now. He states that he gets some wheezing first thing (more content not included)... Normal [facility] 12 Lead EKGon 06-20-2025 12 Lead EKG [facility] Cardiovascular Services [address] [place] [address] 12 Lead EKG 11/06/24 1750 MR#: [id number] Acct: [id number] Name: REUBEN SAPP Rep #: [id number] : 1975 49 From: Pankaj Keller MD Attending Dr: Status: DEP ER Ordering Dr: Taylor Munoz Date: 11/06/24 Location: ED Sex: M H Admitted: Test Reason : cp Blood Pressure : */* mmHG Vent. Rate : 86 BPM Atrial Rate : 86 BPM P-R Int : 168 ms QRS Dur : 104 ms QT Int : 412 ms P-R-T Axes : 49 -4 33 degrees QTcB Int : 493 ms Normal sinus rhythm Incomplete right bundle branch block Nonspecific T wave abnormality QTcB >= 480 msec Abnormal ECG Confirmed by Pankaj Keller ([id number]), acquisition editor ERIS STARKEY ([id number]) on 11/10/2024 11:43:28 AM Referred By: Confirmed By: Pankaj Keller 11/10/24 1143 Date Pankaj Keller MD CC: Dr. Rakesh Broderick DO; Dr. Keke Jackson MD; CARMENZA Harman Signed Normal [facility] Basic Metabolic Profile (BMP )on 11-06-2024 Calcium [Mass/Vol] 9.0 mg/dL Normal 7.6-11.0 [facility] Comment on above: Performed By: #### L 500.2500, L100.0100, L501.4021 #### [facility] [address] [place], [address] CBC W/Diff, Automatedon 10-19 Absolute Lymph 2.38 X10 3/uL Normal 0.83-4.51 [facility] Comment on above: Performed By: #### L 500.2500, L100.0100, L501.4021 #### [facility] [address] [place], [address] Absolute Neut 4.1 X10 3/uL Normal 2.0-7.7 [facility] Comment on above: Performed By: #### L 500.2500, L100.0100, L501.4021 #### [facility] [address] [place], [address] Basophils/100 WBC (Bld) 1.2 % High 0-1 [facility] Comment on above: Performed By: #### L 500.2500, L100.0100, L501.4021 #### [facility] [address] [place], [address] Eosinophils/100 WBC (Bld) 3.5 % Normal 0-5 [facility] Comment on above: Performed By: #### L 500.2500, L100.0100, L501.4021 #### [facility] [address] [place], [address] Erythrocyte distribution width (RBC) [Ratio] 13.2 % Normal 11.6-14.6 [facility] Comment on above: Performed By: #### L 500.2500, L100.0100, L501.4021 #### [facility] [address] [place], [address] Hematocrit (Bld) [Volume fraction] 41.3 % Normal 40-54 [facility] Comment on above: Performed By: #### L 500.2500, L100.0100, L501.4021 #### [facility] [address] [place], [address] Hemoglobin (Bld) [Mass/Vol] 14.5 g/dL Normal 13.0-16.5 [facility] Comment on above: Performed By: #### L 500.2500, L100.0100, L501.4021 #### [facility] [address] [place], [address] IG% 0.300 Normal 0.0-0.9 [facility] Comment on above: Result Comment: IG% - Immature Granulocytes (promyelocytes, myelocytes and metamyelocytes) > 1% indicates that a LEFT SHIFT is Present. Performed By: #### L 500.2500, L100.0100, L501.4021 #### [facility] [address] [place], [address] Lymphocytes/100 WBC (Bld) 32.0 % Normal 19-41 [facility] Comment on above: Performed By: #### L 500.2500, L100.0100, L501.4021 #### [facility] [address] [place], [address] MCH (RBC) [Entitic mass] 30.0 pg Normal 27.0-32.0 [facility] Comment on above: Performed By: #### L 500.2500, L100.0100, L501.4021 #### [facility] [address] [place], [address] MCHC (RBC) [Mass/Vol] 35.1 g/dL Normal 32-36 [facility] Comment on above: Performed By: #### L 500.2500, L100.0100, L501.4021 #### [facility] [address] [place], [address] MCV (RBC) [Entitic vol] 85.5 fL Normal 80-94 [facility] Comment on above: Performed By: #### L 500.2500, L100.0100, L501.4021 #### [facility] [address] [place], [address] Monocytes/100 WBC (Bld) 8.3 % Normal 0-10 [facility] Comment on above: Performed By: #### L 500.2500, L100.0100, L501.4021 #### [facility] [address] [place], [address] Neutrophils/100 WBC (Bld) 54.7 % Normal 47-70 [facility] Comment on above: Performed By: #### L 500.2500, L100.0100, L501.4021 #### [facility] [address] [place], [address] Nucleated RBC (Bld) [#/Vol] 0 10*3/uL Normal 0-5 [facility] Comment on above: Performed By: #### L 500.2500, L100.0100, L501.4021 #### [facility] [address] [place], [address] Platelet mean volume (Bld) [Entitic vol] 9.1 fL Normal 6.2-12.0 [facility] Comment on above: Performed By: #### L 500.2500, L100.0100, L501.4021 #### [facility] [address] [place], [address] Platelets (Bld) [#/Vol] 295 10*3/uL Normal 150-450 [facility] Comment on above: Performed By: #### L 500.2500, L100.0100, L501.4021 #### [facility] [address] [place], [address] RBC (Bld) [#/Vol] 4.83 10*6/uL Normal 4.6-6.2 [facility] Comment on above: Performed By: #### L 500.2500, L100.0100, L501.4021 #### [facility] [address] [place], [address] RDW SD 41.0 fl Normal 35.1-43.9 [facility] Comment on above: Performed By: #### L 500.2500, L100.0100, L501.4021 #### [facility] [address] [place], [address] WBC (Bld) [#/Vol] 7.4 10*3/uL Normal 4.4-11.0 [facility] Comment on above: Performed By: #### L 500.2500, L100.0100, L501.4021 #### [facility] [address] [place], [address] CNOVon 11-06-2024 CNOV Office Visit (UCWSTR ) REUBEN SAPP ([id number]) 1975 M Date Time Provider Department 11/06/24 5:15 PM BUDDY TEMPLE [facility] During your visit today, we recorded the following information about you: Buddy Temple APRN.CREDIT REPORTER 11/06/2024 5:40 PM Signed Patient came in with complaints of chest pain. Patient says has been going on for about a week but the last 3 days has gotten worse. Patient says he did recently stop taking his Klonopin. Patient said about 2 weeks ago as when he stopped said he felt better. Patient wanted to know if he have any EKG to rule out cardiac symptoms did let him know that we do not do that here at the present time. Patient is being referred to the emergency room for evaluation. Patient agreeable and wants to take himself. Allergies As of Date: 11/06/2024 Noted Allergy Reaction FLUVOXAMINE 12/07/2015 14 - Other: See Comments Comments: Hypertension NITROFURANTOIN MONOHYD/M-CRYST 08/20/2016 14 - Other: See Comments Comments: Hypertension LATEX, NATURAL RUBBER 08/13/2016 2 - Rash LEVOFLOXACIN 01/21/2014 1 - Mental Status Change 14 - Other: See Comments Comments: hypertension Date Reviewed: 07/09/2024 Reviewed by: Karla Rosas MA - Fully Assessed Primary Visit Diagnosis:Chest pain, unspecified type [R07.9] Prescriptions as of 11/06/2024 - FLUoxetine (PROZAC) 20 mg capsule take [...] Take 50 mg by mouth once daily. - hydrOXYzine HCl (ATARAX) 10 mg tablet Take 10 mg by mouth. - albuterol HFA (PROVENTIL HFA, VENTOLIN HFA) 90 mcg/actuation inhaler Inhale 2 Puffs as instructed every 4 hours as needed for wheezing/shortness of breath. - clonazePAM (KLONOPIN) 0.5 mg tablet Take 0.25 mg by mouth as needed. Problem List As Of Date: 11/06/2024 (None) Encounter Status:Closed by BUDDY TEMPLE on 11/06/24 [facility] Chest PA and Lateralon 11-06 Chest PA and Lateral [facility] Imaging Services [facility] [place], [place] [id number] Chest PA and Lateral MR#: [id number] Acct: [id number] Name: REUBEN SAPP Rep #: [id number] : 1975 M 49 From: Michael Queen MD PCP: Dr. Keke Jackson MD Status: REG ER Study: Chest PA and Lateral Date of Exam: 11/06/24 Exam# [id number] Ordering Dr: Taylor Munoz EXAM: XR Chest, 2 Views CLINICAL INDICATION: CHEST PAIN TECHNIQUE: Frontal and lateral views of the chest. COMPARISON: No relevant prior studies available. FINDINGS: LUNGS AND PLEURAL SPACES: Unremarkable. No consolidation. No pneumothorax. HEART: Unremarkable. No cardiomegaly. MEDIASTINUM: Unremarkable. Normal mediastinal contour. BONES/JOINTS: Unremarkable. No acute fracture. RAD/Chest PA and Lateral IMPRESSION: No acute cardiopulmonary process. Reading Location: [facility] CC: Dr. Keke Jackson MD; CARMENZA Harmna Cycle Counter: Signed Normal [facility] Emergency Department Summary on 11-06-2024 Emergency Department Summary [facility] Medical Records Department [address] [place] [address] Emergency Department Summary 11/06/24 MR#: [id number] Acct: [id number] Name: REUBEN SAPP Rep #: [id number] : 1975 49 From: Rakesh Broderick DO PCP: Dr. Keke Jackson MD Status:DEP ER Location: ED HPI History of Present Illness Chief Complaint: Chest Pain Narrative Narrative: 49-year-old male with PMH of GERD, anxiety and depression presents with 3 days of chest pain. He gets episodes of midsternal pain described as stinging or muscle soreness. It usually last a few seconds to 40 minutes. It occurred at rest and when he was walking around. It's occurred more frequently about 4 times today. He states he ate a chicken sandwich at [employer] and had a few seconds of the pain afterward. He has no shortness of breath, nausea or vomiting, or abdominal or back pain. He has normal bladder and bowel movements. He denies fever chills or upper respiratory symptoms. He is on esomeprazole and famotidine for GERD. [facility] Medical History (Updated 11/06/24 @ 21:05 by CARMENZA Harman) Blood glucose elevated Encounter to establish care Preventative health care Fibromyalgia Gender dysphoria Vision problems GERD (gastroesophageal reflux disease) High cholesterol Hypertension Generalized headaches Emotional problems Asthma Home Medications ???Medication ???Instructions ???Recorded ???Last Taken ???Type esomeprazole magnesium 40 mg 40 mg PO QAM 11/19/23 Unknown Hist ory capsule,delayed release famotidine 20 mg tablet 20 mg PO DAILY 11/19/23 Unknown Hi story spironolactone 50 mg tablet 50 mg PO QDAY 11/19/23 Unknown His tory finasteride 5 mg tablet 5 mg PO QDAY 06/04/24 Unknown Hist ory estradiol 2 mg tablet 6 mg PO QDAY 10/30/24 Unknown Hist ory buspirone 15 mg tablet 15 mg PO BID #180 tabs 11/04/24 Un known Rx clonazepam 0.5 mg tablet 0.5 mg PO QHS PRN anxiety #30 tabs 11/04/24 Unknown Rx fluoxetine 40 mg capsule 80 mg (2 x 40 mg) PO QDAY #180 cap s 11/04/24 Unknown Rx hydroxyzine HCl 25 mg tablet 25 mg PO QDAY #90 tabs 11/04/24 Un known Rx mirabegron 25 mg tablet,extended 50 mg PO QDAY 11/04/24 Unknown His tory release 24 hr (Myrbetriq) prazosin 2 mg capsule 2 mg PO QHS #90 caps 11/04/24 Unkn own Rx Allergy/AdvReac Type Severity Reaction Status Date / Time latex Allergy Rash Verified 11/06/24 17:32 levofloxacin (From Levaquin) Allergy Shortness Verified 11/06/24 17:32 of breath Family History Other Alcoholism Anxiety Arthritis Breast cancer Colon cancer Depression Diabetes Hypertension Mental disorder Psychiatric care Suicide attempt Surgical History H/O endoscopy History of liver biopsy History of cystoscopy History of colonoscopy Social History household members: none Smoking Status: Never smoker alcohol intake: never substance use type: does not use ROS ROS ED ROS Narrative Constitutional: Negative for fever, chills, malaise. CVS: Positive for chest pain. No palpitations or syncope. Respiratory: Negative for shortness of breath, cough. GI: Negative for abdominal pain, nausea, vomiting, diarrhea. EXAM Physical Exam Narrative Exam Narrative: CONST: Patient sitting in no acute distress. EYES: Normal inspection. NECK: Normal inspection. RESP: No respiratory distress, CTAB. CVS: Regular rate and rhythm, no murmur, no gallop. ABD: Soft and nontender, no guarding or rebound, nondistended. SKIN: Color normal, no rash, warm, dry, intact. EXTREMITIES: Normal appearance, no pedal edema. NEURO: Alert and answering questions appropriately. PSYCH: Normal affect. Const Vital Signs: 11/06/24 17:31 11/06/24 18:33 11/06/24 19:31 Temperature 96.1 F L Temperature Source Temporal Pulse Rate 86 74 Respiratory Rate 14 16 Blood Pressure 162/103 H 150/96 H Blood Pressure Mean 122 114 Pulse Ox 99 98 Oxygen Delivery Method Room Air Room Air Room Air 11/06/24 21:00 11/06/24 21:07 Temperature 98.1 F Temperature Source Pulse Rate 68 72 Respiratory Rate 20 H 20 H Blood Pressure 132/93 H 132/93 H Blood Pressure Mean 106 106 Pulse Ox 100 100 Oxygen Delivery Method Room Air Physical Exam Const Vital Signs: 11/06/24 17:31 11/06/24 18:33 11/06/24 19:31 Temperature 96.1 F L Temperature Source Temporal Pulse Rate 86 74 Respiratory Rate 14 16 Blood Pressure 162/103 H 150/96 H Blood Pressure Mean 122 114 Pulse Ox 99 98 Oxygen Delivery Method Room Air Room Air Room Air 11/06/24 21:00 (more content not included)... Normal [facility] L499.0042on 11-06-2024 Trop T High Sen 9 ng/L Normal <=22 [facility] Comment on above: Performed By: #### L 499.0042 ####[facility] [address] [place], [address] L501.4021on 11-06-2024 Trop T High Sen 9 ng/L Normal <=22 [facility] Comment on above: Performed By: #### L 500.2500, L100.0100, L501.4021 #### [facility] [address] [place], [address] MR/BMS.BPon 11-04-2024 MR/BMS.BP [facility] [address] [facility], [address] [place] [address] OFFICE VISIT Date of Service: 11/04/24 MR#: [id number] Acct: [id number] Name: REUBEN SAHU Rep #: [id number] : 1975 Provider: KRISTIAN monroe Age/Sex: 49/M Location: [facility] Status: Signed Intake Vital Signs 09/10/24 10:35 [...] History (Updated 10/30/24 @ 16:[address] Keke Jackson MD) Blood glucose elevated Encounter to [...] Hematologic/Lymphatic Denies: (more content not included)... Normal [facility] CBC W/Diff, Automatedon 10-18 Absolute Lymph 2.01 X10 3/uL Normal 0.83-4.51 [facility] Comment on above: Performed By: #### L 500.4050, L500.4100, L501.9910, L100.0100 ####[facility] [address] [place], [address] Absolute Neut 2.0 X10 3/uL Normal 2.0-7.7 [facility] Comment on above: Performed By: #### L 500.4050, L500.4100, L501.9910, L100.0100 ####[facility] [address] [place], [address] Basophils/100 WBC (Bld) 1.6 % High 0-1 [facility] Comment on above: Performed By: #### L 500.4050, L500.4100, L501.9910, L100.0100 ####[facility] [address] [place], [address] Eosinophils/100 WBC (Bld) 6.0 % High 0-5 [facility] Comment on above: Performed By: #### L 500.4050, L500.4100, L501.9910, L100.0100 ####[facility] [address] [place], [address] Erythrocyte distribution width (RBC) [Ratio] 13.6 % Normal 11.6-14.6 [facility] Comment on above: Performed By: #### L 500.4050, L500.4100, L501.9910, L100.0100 ####[facility] [address] [place], [address] Hematocrit (Bld) [Volume fraction] 41.6 % Normal 40-54 [facility] Comment on above: Performed By: #### L 500.4050, L500.4100, L501.9910, L100.0100 ####[facility] [address] [place], [address] Hemoglobin (Bld) [Mass/Vol] 14.1 g/dL Normal 13.0-16.5 [facility] Comment on above: Performed By: #### L 500.4050, L500.4100, L501.9910, L100.0100 ####[facility] [address] [place], [address] IG% 0.200 Normal 0.0-0.9 [facility] Comment on above: Result Comment: IG% - Immature Granulocytes (promyelocytes, myelocytes and metamyelocytes) > 1% indicates that a LEFT SHIFT is Present. Performed By: #### L 500.4050, L500.4100, L501.9910, L100.0100 ####[facility] [address] [place], [address] Lymphocytes/100 WBC (Bld) 41.4 % High 19-41 [facility] Comment on above: Performed By: #### L 500.4050, L500.4100, L501.9910, L100.0100 ####[facility] [address] [place], [address] MCH (RBC) [Entitic mass] 30.1 pg Normal 27.0-32.0 [facility] Comment on above: Performed By: #### L 500.4050, L500.4100, L501.9910, L100.0100 ####[facility] [address] [place], [address] MCHC (RBC) [Mass/Vol] 33.9 g/dL Normal 32-36 [facility] Comment on above: Performed By: #### L 500.4050, L500.4100, L501.9910, L100.0100 ####[facility] [address] [place], [address] MCV (RBC) [Entitic vol] 88.7 fL Normal 80-94 [facility] Comment on above: Performed By: #### L 500.4050, L500.4100, L501.9910, L100.0100 ####[facility] [address] [place], [address] Monocytes/100 WBC (Bld) 9.7 % Normal 0-10 [facility] Comment on above: Performed By: #### L 500.4050, L500.4100, L501.9910, L100.0100 ####[facility] [address] [place], [address] Neutrophils/100 WBC (Bld) 41.1 % Low 47-70 [facility] Comment on above: Performed By: #### L 500.4050, L500.4100, L501.9910, L100.0100 ####[facility] [address] [place], [address] Nucleated RBC (Bld) [#/Vol] 0 10*3/uL Normal 0-5 [facility] Comment on above: Performed By: #### L 500.4050, L500.4100, L501.9910, L100.0100 ####[facility] [address] [place], [address] Platelet mean volume (Bld) [Entitic vol] 9.5 fL Normal 6.2-12.0 [facility] Comment on above: Performed By: #### L 500.4050, L500.4100, L501.9910, L100.0100 ####[facility] [address] [place], [address] Platelets (Bld) [#/Vol] 282 10*3/uL Normal 150-450 [facility] Comment on above: Performed By: #### L 500.4050, L500.4100, L501.9910, L100.0100 ####[facility] [address] [place], [address] RBC (Bld) [#/Vol] 4.69 10*6/uL Normal 4.6-6.2 [facility] Comment on above: Performed By: #### L 500.4050, L500.4100, L501.9910, L100.0100 ####[facility] [address] [place], [address] RDW SD 44.3 fl High 35.1-43.9 [facility] Comment on above: Performed By: #### L 500.4050, L500.4100, L501.9910, L100.0100 ####[facility] [address] [place], [address] WBC (Bld) [#/Vol] 4.9 10*3/uL Normal 4.4-11.0 [facility] Comment on above: Performed By: #### L 500.4050, L500.4100, L501.9910, L100.0100 ####[facility] [address] [place], [address] Comprehensive Metabolic [facility] 10-30-2024 Albumin [Mass/Vol] 4.2 g/dL Normal 3.5-5.0 [facility] Comment on above: Performed By: #### L 500.4050, L500.4100, L501.9910, L100.0100 ####[facility] [address] [place], [address] Albumin/Globulin [Mass ratio] 1.5 {ratio} Normal 0.9-2.4 [facility] Comment on above: Performed By: #### L 500.4050, L500.4100, L501.9910, L100.0100 ####[facility] [address] [place], [address] ALK PHOS 85 U/L Normal 40-129 [facility] Comment on above: Performed By: #### L 500.4050, L500.4100, L501.9910, L100.0100 ####[facility] [address] [place], [address] ALT [Catalytic activity/Vol] 32 U/L Normal <=46 [facility] Comment on above: Performed By: #### L 500.4050, L500.4100, L501.9910, L100.0100 ####[facility] [address] [place], [address] AST [Catalytic activity/Vol] 25 U/L Normal <=37 [facility] Comment on above: Performed By: #### L 500.4050, L500.4100, L501.9910, L100.0100 ####[facility] [address] [place], [address] Bilirubin [Mass/Vol] 0.43 mg/dL Normal 0.00-1.30 [facility] Comment on above: Performed By: #### L 500.4050, L500.4100, L501.9910, L100.0100 ####[facility] [address] [place], [address] BUN/CRE 12.4 RATIO Normal 10-20 [facility] Comment on above: Performed By: #### L 500.4050, L500.4100, L501.9910, L100.0100 ####[facility] [address] [place], [address] Calcium [Mass/Vol] 9.1 mg/dL Normal 7.6-11.0 [facility] Comment on above: Performed By: #### L 500.4050, L500.4100, L501.9910, L100.0100 ####[facility] [address] [place], [address] Chloride [Moles/Vol] 103 mmol/L Normal 98-108 [facility] Comment on above: Performed By: #### L 500.4050, L500.4100, L501.9910, L100.0100 ####[facility] [address] [place], [address] CO2 [Moles/Vol] 20.8 mmol/L Low 21.0-32.0 [facility] Comment on above: Performed By: #### L 500.4050, L500.4100, L501.9910, L100.0100 ####[facility] [address] [place], [address] Creatinine [Mass/Vol] 1.13 mg/dL Normal 0.70-1.20 [facility] Comment on above: Performed By: #### L 500.4050, L500.4100, L501.9910, L100.0100 ####[facility] [address] [place], [address] GAP 11 Normal 5-15 [facility] Comment on above: Performed By: #### L 500.4050, L500.4100, L501.9910, L100.0100 ####[facility] [address] [place], [address] GFR/1.73 sq M.predicted among non-blacks MDRD (S/P/Bld) [Vol rate/Area] 79 mL/min/{1.73_m2} Normal >60 [facility] Comment on above: Result Comment: mL/m in/1.73m2 CKD-EPI Creatinine Equation (2020) Performed By: #### L 500.4050, L500.4100, L501.9910, L100.0100 ####[facility] [address] [place], [address] Globulin (S) [Mass/Vol] 2.7 g/dL Normal 2.2-4.2 [facility] Comment on above: Performed By: #### L 500.4050, L500.4100, L501.9910, L100.0100 ####[facility] [address] [place], [address] Glucose [Mass/Vol] 132 mg/dL High 70-99 [facility] Comment on above: Performed By: #### L 500.4050, L500.4100, L501.9910, L100.0100 ####[facility] [address] [place], [address] Potassium [Moles/Vol] 3.9 mmol/L Normal 3.3-5.1 [facility] Comment on above: Performed By: #### L 500.4050, L500.4100, L501.9910, L100.0100 ####[facility] [address] [place], [address] Sodium [Moles/Vol] 135 mmol/L Normal 133-145 [facility] Comment on above: Performed By: #### L 500.4050, L500.4100, L501.9910, L100.0100 ####[facility] [address] [place], [address] T PROT 6.9 g/dL Normal 5.9-8.4 [facility] Comment on above: Performed By: #### L 500.4050, L500.4100, L501.9910, L100.0100 ####[facility] [address] [place], [address] Urea nitrogen [Mass/Vol] 14 mg/dL Normal 4-19 [facility] Comment on above: Performed By: #### L 500.4050, L500.4100, L501.9910, L100.0100 ####[facility] [address] [place], [address] Hemoglobin A1con 10-30-2024 HbA1c (Bld) [Mass fraction] 6.1 % High <=5.6 [facility] Comment on above: Result Comment: Norm al < 5.7 % Prediabetic 5.7 - 6.4 % Diabetic >or= 6.5 % Please note range changes. Performed By: #### L 501.9985 #### [facility] [address] [place], [place], [address] Internal Medicine Office Vis itoalcon 10-30-2024 Internal Medicine Office Visit [facility] [address] [place], [place] [address] OFFICE VISIT Date of Service: 10/30/24 MR#: [id number] Acct: [id number] Name: REUBEN SAHU Rep #: [id number] : 1975 Provider: Dr. 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 No acute concerns at this time. Had previously followed up with Dr. Crocker in [place]. He also currently follows up with urology, psychiatry and a provider in [place] for gender affirming care. Has been on [...] not. Also follows up with dermatology at [facility]. ROS Const Constitutional: No body ache, chills, [...] No dr (more content not included)... Normal [facility] Lipid Profileon 10-30-2024 CHOL:HDL 3.35 Normal [facility] Comment on above: Performed By: #### L 500.4050, L500.4100, L501.9910, L100.0100 ####[facility] [address] [place], [address] Cholesterol [Mass/Vol] 165 mg/dL Normal <=200 [facility] Comment on above: Result Comment: Chol esterol level, Desirable <200 mg/dL Borderline high cholesterol 200-239 mg/dL High cholesterol >=240 mg/dL Recommendations of the NCEP Adult Treatment Panel for the following risk-cutoff thresholds for the [place] population. Performed By: #### L 500.4050, L500.4100, L501.9910, L100.0100 ####[facility] [address] [place], [address] Cholesterol in HDL [Mass/Vol] 49 mg/dL Normal [facility] Comment on above: Result Comment: Kristina onal Cholesterol Education Program (NCEP) guidelines: <40 mg/dL: Low HDL-cholesterol (major risk factor for CHD) >= 60 mg/dL: High HDL-cholesterol (negative risk factor for CHD) HDL-cholesterol is affected by a number of factors, e.g. smoking, exercise, hormones, sex and age. Performed By: #### L 500.4050, L500.4100, L501.9910, L100.0100 ####[facility] [address] [place], [address] Cholesterol in LDL [Mass/Vol] 82 mg/dL Normal [facility] Comment on above: Result Comment: Bord rdvgik=954-659 mg/dL Higher Gzdr=271 mg/dL or greater Performed By: #### L 500.4050, L500.4100, L501.9910, L100.0100 ####[facility] [address] [place], [address] Cholesterol in VLDL [Mass/Vol] 34 mg/dL Normal 5-40 [facility] Comment on above: Performed By: #### L 500.4050, L500.4100, L501.9910, L100.0100 ####[facility] [address] [place], [address] Triglyceride [Mass/Vol] 168 mg/dL Normal [facility] Comment on above: Result Comment: The drugs N-Acetylcysteine and Metamizole may falsely depress this assay. Normal range: <150 mg/dL Borderline High: 150-199 mg/dL High: 200-499 mg/dL Very High: >500 mg/dL Performed By: #### L 500.4050, L500.4100, L501.9910, L100.0100 ####[facility] [address] [place], [address] PSA,Total - Annual Screenon 10-30-2024 PSA,TOT SCREEN 0.12 ng/mL Normal 0.02-4.00 [facility] Comment on above: Result Comment: This test [...] confirm baseline values. Performed By: #### L 500.4050, L500.4100, L501.9910, L100.0100 ####[facility] [address] 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 Has started in group therapy in [place] but has only been one time and [...] casually dress (more content not included)... Normal [facility] MR/BMS.BPon 07-16-2024 MR/BMS.BP [facility] [address] [facility], [address] [place] [address] OFFICE VISIT Date of Service: 07/16/24 MR#: [id number] Acct: [id number] Name: REUBEN SAHU Rep #: [id number] : 1975 Provider: KRISTIAN monroe Age/Sex: 49/M Location: [facility].BP Status: Signed Intake Vital Signs 05/05/24 10:32 [...] Denies: whe (more content not included)... [facility] ([facility] ) REUBEN SAPP ([id number]) 1975 M Date Time Provider Department 07/09/24 4:45 PM [facility] During your visit today, we recorded the following information about you: Temperature Pulse Respiration Blood pressure 97.6 degrees 67/minute 18/minute 133/85 Weight 97.5 kg Minerva Easton APRN.CNP 07/09/2024 5:08 PM Signed Subjective HPI Pt [...] he passed out. Pt reports going to [place] [facility] to be evaluated, which he was [...] illness TEACHI (more content not included)... Normal [facility] Emergency Department Summary on 07-05-2024 Emergency Department Summary [facility] Medical Records Department [address] [place] [address] Emergency Department Summary 07/05/24 MR#: [id number] Acct: [id number] Name: REUBEN SAHU Rep #: [id number] : 1975 49 From: Nash Geller MD [...] decision mike (more content not included)... [facility] ([facility] ) REUBEN SAPP ([id number]) 1975 M Date Time Provider Department 07/04/24 11:15 AM EMELY ACUNA [facility] During your visit today, we recorded the following information about you: Temperature Pulse Respiration Blood pressure 97.1 degrees 78/minute 16/minute 118/84 Weight 97.9 kg Emely Acuna APRN.[facility] 07/04/2024 11:56 AM Signed Subjective The history is provided by the patient. No foreign language professor was used. [facility] Reuben Carrneo is a 49 year old male who [...] have confirmed and edited as necessary, the [facility] Review of Systems Constitutional: Positive for malaise/fatigue. [...] detail warranting prompt ER evaluation. Emely Acuna APRN.Emely Wolf APRN.CNP 07/04/2024 11:56 AM Signed Ryan Marley 2 every 8 hours, do not combine this with robitussin or delsym covid rsv and influenza test ordered You will be notified in 12-24 hours, results available on [facility], increase water intake Tylenol [...] pain, difficu (more content not included)... Normal [facility] CNOVon 07-02-2024 CNOV Office Visit (UCWSTR ) REUBEN SAPP ([id number]) 1975 M Date Time Provider Department 07/02/24 2:00 PM HOLDEN ROGERS [facility] During your visit today, we recorded the [...] Reactions Fluvoxamine Other: See Comments Hypertension Nitrofurantoin [place]* Other: See Comments Hypertension Latex, Natural Rubb* [...] Diagnosis:Acute cough [R05.1] Order(s):XR CHEST 2V FRONTAL/LAT [[id number]] Order #: [id number] FUTURE benzonatate (TESSALON PERLE) 100 mg capsuleTake [...] by mouth (more content not included)... Normal [facility] XR CHEST 2V FRONTAL/LATon XR CHEST 2V [...] tissues: Unremarkable. IMPRESSION: No acute radiographic abnormality. Cycle Counter: [facility] Transcribe Date/Time: Jul 02 2024 1:55P Dictated by : MAVERICK BORDEN MD This examination was interpreted and the report reviewed and electronically signed by: MAVERICK BORDEN MD on Jul 02 2024 1:55PM EST [id number] Normal [facility] XR Chest PA and Lateralon IMPRESSION: No acute radiographic abnormality. Cycle Counter: [facility] Transcribe Date/Time: Jul 02 2024 1:55P Dictated by : MAVERICK BORDEN MD This examination was interpreted and the report reviewed and electronically signed by: MAVERICK BORDEN MD on Jul 02 2024 1:55PM EST DIVISION OF RADIOLOGY * * *Final [...] soft tissues: Unremarkable. [facility] * * *Final Report* [...] Unremarkable. IMPRESSION IMPRESSION: No acute radiographic abnormality. Cycle Counter: [facility] Transcribe Date/Time: Jul 02 2024 1:55P Dictated by : MAVERICK BORDEN MD This examination was interpreted and the report reviewed and electronically signed by: MAVERICK BORDEN MD on Jul 02 2024 1:55PM EST [facility] Radiology Study observation (narrative) [facility] XR Chest PA and LateralOrder ed By: [facility] Provider on 07-02-2024 [facility] CNOVon 06-17-2024 CNOV Office Visit (UCWSTR ) REUBEN SAPP ([id number]) 1975 M Date Time Provider Department 06/17/24 2:00 PM MYESHA ORTIZ [facility] During your visit today, we recorded the following information about you: Temperature Pulse Respiration Blood pressure 98.2 degrees 78/minute 20/minute 148/100 Weight 95.2 kg Myesha Ortiz APRN.CREDIT REPORTER 06/17/2024 2:48 PM Signed Subjective HPI HPI [...] HFA 90 MCG/ACTUATION AEROSOL INHALER Myesha Ortiz APRN.CREDIT REPORTER Allergies As of Date: 06/17/2024 Noted Allergy [...] of asthma [Z87.09] Order(s):XR CHEST 2V FRONTAL/LAT [[id number]] Order #: [id number] #:[id number] albuterol (more content not included)... Normal [facility] XR CHEST 2V FRONTAL/LATon XR CHEST 2V [...] tissues: Unremarkable. IMPRESSION: No acute radiographic abnormality. Cycle Counter: [facility] Transcribe Date/Time: Jun 17 2024 2:33P Dictated by : BRAYAN LILLY DO This examination was interpreted and the report reviewed and electronically signed by: BRAYAN LILLY DO on Jun 17 2024 2:34PM EST [id number] Normal [facility] XR Chest PA and Lateralon IMPRESSION: No acute radiographic abnormality. Cycle Counter: [facility] Transcribe Date/Time: Jun 17 2024 2:33P [...] soft tissues: Unremarkable. DIVISION OF RADIOLOGY Provider, [facility] - 06/17/2024 * * *Final Report* * [...] Unremarkable. IMPRESSION IMPRESSION: No acute radiographic abnormality. Cycle Counter: [facility] Transcribe Date/Time: Jun 17 2024 2:33P Dictated by : BRAYAN LILLY DO This examination was interpreted and the report reviewed and electronically signed by: BRAYAN LILLY DO on Jun 17 2024 2:34PM EST [facility] Radiology Study observation (narrative) [facility] XR Chest PA and LateralOrder ed By: [facility] Provider on 06-17-2024 [facility] COVID-19, MOLECULARon 2024 SARS-CoV-2 (COVID-19) Ab IA Ql Not detected Normal Not Detected [facility] Comment on above: Result Comment: Test ing was performed using the [employer] ID NOW COVID-19 assay on the ID NOW platform. This test has not been approved for use in asymptomatic patients and its performance in this patient population has not been evaluated. Negative results do not rule out the presence of SARS-CoV-2/COVID-19. MR/BMS.BPon 06-04-2024 MR/BMS.[address], [place] [address] OFFICE VISIT Date of Service: 06/04/24 MR#: [id number] Acct: [id number] Name: REUBEN SAPP Rep #: [id number] : 1975 Provider: KRISTIAN monroe Age/Sex: 49/M Location: [facility].BP Status: Signed Intake Vital Signs 05/05/24 10:32 [...] Behavior MS (more content not included)... Normal [facility] MR/BMS.BPon 05-05-2024 MR/BMS.BP [facility] [address] [place] [address], [address] [place] [address] OFFICE VISIT Date of Service: 05/05/24 MR#: [id number] Acct: [id number] Name: REUBEN SAPPO Rep #: [id number] : 1975 Provider: KRISTIAN monroe Age/Sex: 49/M Location: [facility].BP Status: Signed Intake Vital Signs 03/24/24 10:20 05/05/24 10:32 Height 5 ft 7 in 5 [...] [facility] on LBGTQ+ community and [...] x3 M (more content not included)... Normal [facility] DENZEL SCREENING W [facility] 04-13 DENZEL SCREENING W YESSENIA * * *Final Report* * * DATE OF EXAM: Apr 13 2024 4:21PM AADarshana 0582 - DENZEL SCREENING W YESSENIA / PROCEDURE REASON: screen * * * * Physician Interpretation * * * * [facility] [address] [place] [address] #[id number] - DENZEL SCREENING W YESSENIA HISTORY: Patient [...] Jossie Soliman M.D. Electronically signed on: 04/14/2024 Cycle Counter: FELIC[facility]O Transcribe Date/Time: Apr 13 2024 4:04P Dictated by : JOSSIE SOLIMAN MD This examination was interpreted and the report reviewed and electronically signed by: JOSSIE SOLIMAN MD on Apr 14 2024 12:32PM EST [id number] Normal [facility] MR/BMS.BPon 03-24-2024 MR/BMS.BP [address], [place] [address] OFFICE VISIT Date of Service: 03/24/24 MR#: [id number] Acct: [id number] Name: REUBEN SAPP Rep #: [id number] : 1975 Provider: KRISTIAN monroe Age/Sex: 48/M Location: [facility].BP Status: Signed Intake Vital Signs 01/28/24 10:06 03/24/24 10:20 Height 5 ft 7 in 5 ft 7 in Weight: 205 lb BMI 32.1 BP 120/82 H 122/85 H Blood Pressure Location Rt brachial Position Sitting Respiration 16 Pulse 78 67 Pulse Source Monitor Pulse Oximetry (%) 98 BP Intake Visit Reasons: 8wfu, trouble falling alseep Accompanied by: Self Allergies latex Allergy (Verified 03/24/24 10:24) Rash [...] up evaluation. Patient states they were in [place], [place] last week for work and was [...] and dif (more content not included)... Normal [facility] MR/BMS.BPon 01-28-2024 MR/BMS.BP [facility] [address] [place] [address] [address] [place] [address] OFFICE VISIT Date of Service: 01/28/24 MR#: [id number] Acct: [id number] Name: BRANDI CARRENOREUBENKALEB SANTOYORAIN Rep #: [id number] : 1975 Provider: KRISTIAN monroe Age/Sex: 48/M Location: [facility].BP Status: Signed Intake Vital Signs 12/30/23 10:48 [...] distress Attitud (more content not included)... Normal [facility] Absolute lymphocyte countOrd ered By: Nash Geller on 02-08-2023 Lymphocytes Auto (Unsp spec) [#/Vol] 2.33 10*3/uL 0.83-4.51 [facility] Basophil percentageOrdered B y: Nash Geller on 02-08-2023 Basophils/100 WBC (Bld) 1.5 % 0-1 [facility] Bilirubin [Mass/Vol] 0.20 mg/dL 0.20-1.00 [facility] Comment on above: For patients on eltr ombopag therapy, use of Dimension Hagerman TBIL is not recommended. Chloride [Moles/Vol] 107 mmol/L 98-107 [facility] Eosinophils/100 WBC (Bld) 4.0 % 0-5 [facility] Glucose [Mass/Vol] 105 mg/dL 74-106 [facility] Comment on above: Fasting Glucose resu lt from 100 to 125 mg/dL suggests IMPAIRED HOMEOSTASIS per A.D.A. criteria. Neutrophils (Bld) [#/Vol] 4.5 10*3/uL 2.0-7.7 [facility] Neutrophils/100 WBC (Bld) 55.7 % 47-70 [facility] Potassium [Moles/Vol] 3.7 mmol/L 3.5-5.1 [facility] Protein [Mass/Vol] 7.2 g/dL 6.4-8.2 [facility] Sodium [Moles/Vol] 135 mmol/L 136-145 [facility] WBC (Bld) [#/Vol] 8.0 10*3/uL 4.4-11.0 [facility] Blood erythrocytes count (nu mber/volume)Ordered By: Nash Geller on 02-08-2023 RBC (Bld) [#/Vol] 4.55 10*6/uL 4.6-6.2 [facility] Blood hemoglobin measurement (mass/volume)Ordered By: Nash Geller on 02-08-2023 Hemoglobin (Bld) [Mass/Vol] 14.0 g/dL 13.0-16.5 [facility] Blood lymphocytes/100 leukoc ytesOrdered By: Nash Geller on 02-08-2023 Lymphocytes/100 WBC (Bld) 29.1 % 19-41 [facility] Blood monocytes/100 leukocyt esOrdered By: Nashelizabeth Geller on 02-08-2023 Monocytes/100 WBC (Bld) 9.2 % 0-10 [facility] Blood platelet mean volumeOr dered By: Nash Geller on 02-08-2023 Platelet mean volume (Bld) [Entitic vol] 9.0 fL 6.2-12.0 [facility] Determination of erythrocyte mean corpuscular volume (MCV)Ordered By: Nash Geller on 02-08-2023 MCV (RBC) [Entitic vol] 92.1 fL 80-94 [facility] Glucose Glucometer (dC) [M ass/Vol]Ordered By: Nash Geller on 02-08-2023 Glucose [Mass/Vol] 118 mg/dL 74-106 [facility] Comment on above: MANAGEMENT OF PATIEN T CARE PER NURSING PROTOCOL Hematocrit Auto (Bld) [Volum e fraction]Ordered By: Nash Geller on 02-08-2023 Hematocrit (Bld) [Volume fraction] 41.9 % 40-54 [facility] Laboratory - Chemistry and C hemistry - challengeOrdered By: Nashelizabeth Geller on 02-08-2023 ALP [Catalytic activity/Vol] 97 U/L 45-117 [facility] ALT [Catalytic activity/Vol] 34 U/L 16-61 [facility] CO2 [Moles/Vol] 23.0 mmol/L 21.0-32.0 [facility] Globulin (S) [Mass/Vol] 3.5 g/dL 2.2-4.2 [facility] Urea nitrogen/Creatinine [Mass ratio] 17.0 mg/mg 10-20 [facility] - Hematology and Cell countsOrdered By: Nashelizabeth Geller on 02-08-2023 Erythrocyte distribution width (RBC) [Entitic vol] 46.0 fL 35.1-43.9 [facility] Erythrocyte distribution width (RBC) [Ratio] 13.4 % 11.6-14.6 [facility] Immature granulocytes/100 WBC (Bld) 0.500 % 0.0-0.9 [facility] Comment on above: IG% - Immature Granu locytes (promyelocytes, myelocytes and metamyelocytes) > 1% indicates that a LEFT SHIFT is Present. MCH (RBC) [Entitic mass] 30.8 pg 27.0-32.0 [facility] Nucleated RBC/100 WBC (Bld) [Ratio] 0 % 0-5 [facility] MCHC Auto (RBC) [Mass/Vol]Or dered By: Nash Geller on 02-08-2023 MCHC (RBC) [Mass/Vol] 33.4 g/dL 32-36 [facility] No Panel InformationOrdered By: Nash Geller on 02-08-2023 Estimated Creatinine Clearance Calc 78.81 ml/min [facility] Estimated GFR (MDRD) Amer 95 mL/min >60 [facility] Comment on above: GFR Calc Estimated GFR (MDRD) Non-Af Amer 79 mL/min >60 [facility] Comment on above: Non- GFR Calc Platelets bldOrdered By: Nash Geller on 02-08-2023 Platelets (Bld) [#/Vol] 311 10*3/uL 150-450 [facility] Serum or plasma albumin latasha urement (mass/volume)Ordered By: Nash Geller on 02-08-2023 Albumin [Mass/Vol] 3.7 g/dL 3.2-5.0 [facility] Serum or plasma albumin/glob ulin mass ratioOrdered By: Nash Geller on 02-08-2023 Albumin/Globulin [Mass ratio] 1.1 {ratio} 0.9-2.4 [facility] Serum or plasma calcium latasha urement (mass/volume)Ordered By: Nash Geller on 02-08-2023 Calcium [Mass/Vol] 8.9 mg/dL 8.5-10.1 [facility] Serum or plasma creatinine m easurement (mass/volume)Ordered By: Nash Geller on 02-08-2023 Creatinine [Mass/Vol] 1.06 mg/dL 0.70-1.30 [facility] Comment on above: The validity of the calculated GFR & GFRAA in patients over 70 years has not been determined. Clinical correlation is essential. Serum or plasma urea nitroge n measurement (mass/volume)Ordered By: Nash Geller on 02-08-2023 Urea nitrogen [Mass/Vol] 18 mg/dL 7-18 [facility] Thin prep Papanicolaou smear with manual screeningOrdered By: Nash Geller on 02-08-2023 Thin prep Papanicolaou smear with manual screening 14 U/L 15 [facility] Thin prep Papanicolaou smear with manual screening 5 5-15 [facility] FINGERLTon 2022 [address] [place] [address] [place] [address] XRay Report Signed Patient Name: Reuben Paz Re cord #: [id number] Date of : 1975 Account #:[id number] Age/Sex: 47 / M Location: [facility] Attending physician: Susie Rinaldi CNP Ordering [...] By: 05/01/22 1142 DD/ 1139 TD/TT: 05/01/22 113 Cycle Counter: MICHAEL Exam/Order Verified? Y Exam Explained to Patient/Family? Y Was Patient Shielded? N Is Patient ? Consent Form Completed? Hx Last Menstrual Period: Does Patient have a Diabetic Device? No Diabetic Device Type: Was the Diabetic Device Removed? If NO: was Removal Consent form completed? Verified by Technologist:[id number] Comment: [id number] cc: Susie Rinaldi CNP PCP,No Normal [facility] US ABDOMEN RENALon US ABDOMEN RENAL Patient [...] Evan Knutson MD On: 08/09/2020 4:23 PM [facility] Covid-19 Priorityon 08-06-19 21 Inpatient Comment [facility] Comment on above: Order Comment: Testi ng performed at: [CB] [address], [address], , Waterside Worker: Ryan Resendez, PhD Testing performed at: [COCIN] [facility], [address] [facility], [place], [address], , Waterside Worker: Guru Valle MD Reported Source: NASAL SWAB Reported Clinical Info Relevant to Order: SRC:NASAL SWAB [place] Order: [id number] Result Comment: Rece ived Novel Coronavirus (Covid-19) , NAAon 08-05-2020 SARS-CoV-2, JOSH Not Detected Normal Not Detected [facility] Comment on above: Order Comment: Brisa ng performed at: [CB] [facility], [address] [facility], [place], [address], , Waterside Worker: Ryan Resendez, PhD Testing performed at: [COCIN] [facility], [address] [place] [address] [place], [address], , Waterside Worker: Guru Valle MD Reported Source: NASAL SWAB Reported Clinical Info Relevant to Order: SRC:NASAL SWAB [place] Order: [id number] Result Comment: This nucleic acid amplification test was developed and its performance characteristics determined by [employer]. Nucleic acid amplification tests include RT- PCR [...] results FINAL SURGICAL PATHOLOGY REPORT 1. NETTIE: [id number] Testing performed at [facility], [address] [place] [address], [place] [address] Host Order: [id number] DIAGNOSIS: 1. COLON, TWO POLYPS DESCENDING, BIOPSY: [...] formalin, in a container labeled Reuben Carreno, [facility] 1975, #1-two polyps in descending colon. The specimen is retrieved from an included filter device. The specimen consists of two mcneil fragments ranging in size from 0.3 to 0.6 centimeters. The specimen is submitted in a single cassette. 2. The specimen is received in formalin, in a container labeled Reuben Carreno, [facility] 1975, #2-sigmoid colon polyp. The specimen consists of four mcneil fragments ranging in size from 0.2 to 0.3 centimeters. The specimen is submitted in a single cassette. Electronically Signed by HUNTER Tate MD 04/05/2020 16:32 Billing Codes: 1. [id number] (x2), [id number] (x2) [facility] Comment on above: Order Comment: NETTIE: [id number] Testing performed at [facility], [address] [place] [address] Host Order: [id number] Novel Coronavirus (Covid-19) , NAAon 03-25-2020 SARS-CoV-2, JOSH Not Detected Normal Not Detected [facility] Comment on above: Order Comment: Testi ng performed at: [TG] [facility], [facility] [place], [address], , Waterside Worker: Vanita Pope Reported Source: NASAL SWAB Reported Clinical Info Relevant to Order: SRC:NASAL SWAB [place] Order: [id number] Result Comment: This nucleic acid amplification test was developed and its performance characteristics determined by [employer]. Nucleic acid amplification tests include PCR and [...] Canchola MD On: 03/21/2020 10:26 AM Normal [facility] Hemoglobin A1Con 01-13-2020 HbA1c (Bld) [Mass fraction] 103 mg/dL Normal [facility] Comment on above: Order Comment: [facility], [address] [place] [address] [place] Order: [id number] HbA1c (Bld) [Mass fraction] 5.2 % Normal 4.0-6.0 [facility] Comment on above: Order Comment: Testi ng performed at [facility], [address] [place] [address] [place] Order: [id number] Result Comment: The [place] Diabetes Association recommends that the goal of therapy should be a Hemoglobin A1C of <7% and that the physician should recommend the treatment regimen in patients with values consistently >8%. Lipid Profileon 01-13-2020 Cholesterol [Mass/Vol] 224 mg/dL High 0-200 [facility] Comment on above: Order Comment: Testi ng performed at [facility], [address] [place] [address] [place] Order: [id number] Result Comment: Refe rence ranges recommended by the National Cholesterol Education Program <200 Desirable 200-239 Borderline High >240 High Cholesterol in HDL [Mass/Vol] 54 mg/dL Normal [facility] Comment on above: Order Comment: Testi ng performed at [facility], [address] [place], [place] [id number] [place] Order: [id number] Result Comment: <40 Major risk factor in CHD for males <50 Major risk factor in CHD for females >60 Negative risk factor for males and females Cholesterol in LDL [Mass/Vol] 130 mg/dL Normal [facility] Comment on above: Order Comment: Testi ng performed at [facility], [address] [place], [place] [address] [place] Order: [id number] Result Comment: <100 Optimal 100-129 Near optimal/above optimal 130-159 Borderline High 160-189 High >190 Very high LDL-C values may be decreased when the Triglycerides are >200. Cholesterol.total/Chol esterol in HDL [Mass ratio] 4.1 {ratio} Normal 3.9-4.7 [facility] Comment on above: Order Comment: Testi ng performed at [facility], [address] [place] [address] [place] Order: [id number] Result Comment: Ifrah nary Heart Disease Risk: Male Female Risk 3.4 3.3 0.5 x Average 5.0 4.4 1.0 x Average 9.6 7.1 2.0 x Average 13.5 11.0 3.0 x Average Hours Fasting? patient not fasting per doctors orders Normal [facility] Comment on above: Order Comment: Testi ng performed at [facility], [address] [place] [address] [place] Order: [id number] Triglyceride [Mass/Vol] 200 mg/dL High 0-150 [facility] Comment on above: Order Comment: Testi ng performed at [facility], [address] [place] [address] [place] Order: [id number] Result Comment: Refe rence ranges recommended by the National Cholesterol Education Program. <150 Normal <200 Normal in a Non-fasting specimen* 150-199 Borderline High 200-499 High >=500 Very High *Triglyceride values >200 in a non-fasting specimen, recommend repeat testing after an 8-12 hour fast. VLDL, Calculated 40 mg/dL High 7-32 [facility] Comment on above: Order Comment: Testi ng performed at [facility], [address] [place] [address] [place] Order: [id number] Vital Signs Date Time Vital Sign Value Performing Clinician Facility 10-16-2024 10:37-0400 Body height 167.6 cm Opal Kenny APRN, CNP Work Phone: [employer] Work Phone: 10-16-2024 10:37-0400 Body temperature 97.5 [degF] Opal Kenny APRN, CNP Work Phone: [employer] Work Phone: 10-16-2024 10:37-0400 Body weight 96.8 kg Opal Kenny APRN, CNP Work Phone: [employer] Work Phone: 10-16-2024 10:37-0400 Diastolic blood pressure 88 mm[Hg] Opal Kenny APRN, CNP Work Phone: [employer] Work Phone: 10-16-2024 10:37-0400 Heart rate 71 /min Opal Kenny APRN, CNP Work Phone: [employer] Work Phone: 10-16-2024 10:37-0400 Respiratory rate 16 /min Opal Kenny APRN, CNP Work Phone: [facility] Work Phone: 10-16-2024 10:37-0400 SaO2% (BldA) [Mass fraction] 97 % Opal Kenny APRN, CNP Work Phone: [facility] Work Phone: 10-16-2024 10:37-0400 Systolic blood pressure 122 mm[Hg] Opal Kenny APRN,LULU Work Phone: [employer] Work Phone: 07-09-2024 16:12-0500 Body mass index (BMI) [Ratio] 33.78 kg/m2 Minerva Mejía-Femi DENTURE LABORATORY TECHNICIAN.CREDIT REPORTER Work Phone: [facility] 07-09-2024 16:12-0500 Body temperature 97.59 [degF] Minerva Praisler-Wood DENTURE LABORATORY TECHNICIAN.CREDIT REPORTER Work Phone: [facility] 07-09-2024 16:12-0500 Body weight 97.5 kg Minerva Praisler-Wood DENTURE LABORATORY TECHNICIAN.CREDIT REPORTER Work Phone: [facility] 07-09-2024 16:12-0500 Diastolic blood pressure 85 mm[Hg] Minerva Praisler-Wood DENTURE LABORATORY TECHNICIAN.CREDIT REPORTER Work Phone: [facility] 07-09-2024 16:12-0500 Heart rate 67 /min Minerva Praisler-Wood DENTURE LABORATORY TECHNICIAN.CREDIT REPORTER Work Phone: [facility] 07-09-2024 16:12-0500 Respiratory rate 18 /min Minerva Praisler-Wood DENTURE LABORATORY TECHNICIAN.CREDIT REPORTER Work Phone: [facility] 07-09-2024 16:12-0500 SaO2% (BldA) [Mass fraction] 100 % Minerva Praisler-Wood DENTURE LABORATORY TECHNICIAN.CREDIT REPORTER Work Phone: [facility] 07-09-2024 16:12-0500 Systolic blood pressure 133 mm[Hg] Minerva Praisler-Wood DENTURE LABORATORY TECHNICIAN.CREDIT REPORTER Work Phone: [facility] 07-04-2024 11:28-0500 Body mass index (BMI) [Ratio] 33.92 kg/m2 Emely Armand DENTURE LABORATORY TECHNICIAN.CREDIT REPORTER Work Phone: [facility] 07-04-2024 11:28-0500 Body temperature 97.11 [degF] Emely Armand DENTURE LABORATORY TECHNICIAN.CREDIT REPORTER Work Phone: [facility] 07-04-2024 11:28-0500 Body weight 97.9 kg Emely Armand DENTURE LABORATORY TECHNICIAN.CREDIT REPORTER Work Phone: [facility] 07-04-2024 11:28-0500 Diastolic blood pressure 84 mm[Hg] Emely Armand DENTURE LABORATORY TECHNICIAN.CREDIT REPORTER Work Phone: [facility] 07-04-2024 11:28-0500 Heart rate 78 /min Emely Armand DENTURE LABORATORY TECHNICIAN.CREDIT REPORTER Work Phone: [facility] 07-04-2024 11:28-0500 Respiratory rate 16 /min Emely Armand DENTURE LABORATORY TECHNICIAN.CREDIT REPORTER Work Phone: [facility] 07-04-2024 11:28-0500 SaO2% (BldA) [Mass fraction] 99 % Emely Armand DENTURE LABORATORY TECHNICIAN.CREDIT REPORTER Work Phone: [facility] 07-04-2024 11:28-0500 Systolic blood pressure 118 mm[Hg] Emely Armand DENTURE LABORATORY TECHNICIAN.CREDIT REPORTER Work Phone: [facility] 07-02-2024 13:24-0500 Body mass index (BMI) [Ratio] 34.02 kg/m2 Holden Rogers MD Work Phone: [facility] 07-02-2024 13:24-0500 Body temperature 98.2 [degF] Holden Rogers MD Work Phone: [facility] 07-02-2024 13:24-0500 Body weight 98.2 kg Holden Rogers MD Work Phone: [facility] 07-02-2024 13:24-0500 Diastolic blood pressure 86 mm[Hg] Holden Rogers MD Work Phone: [facility] 07-02-2024 13:24-0500 Heart rate 67 /min Holden Rogers MD Work Phone: [facility] 07-02-2024 13:24-0500 Respiratory rate 18 /min Holden Rogers MD Work Phone: [facility] 07-02-2024 13:24-0500 SaO2% (BldA) [Mass fraction] 99 % Holden Rogers MD Work Phone: [facility] 07-02-2024 13:24-0500 Systolic blood pressure 128 mm[Hg] Holden Rogers MD Work Phone: [facility] 06-17-2024 14:11-0500 Body mass index (BMI) [Ratio] 32.98 kg/m2 Myesha Angel DENTURE LABORATORY TECHNICIAN.CREDIT REPORTER Work Phone: [facility] 06-17-2024 14:11-0500 Body temperature 98.2 [degF] Myesha Angel DENTURE LABORATORY TECHNICIAN.CREDIT REPORTER Work Phone: [facility] 06-17-2024 14:11-0500 Body weight 95.2 kg Myesha Angel DENTURE LABORATORY TECHNICIAN.CREDIT REPORTER Work Phone: [facility] 06-17-2024 14:11-0500 Diastolic blood pressure 100 mm[Hg] Myesha Angel DENTURE LABORATORY TECHNICIAN.CREDIT REPORTER Work Phone: [facility] 06-17-2024 14:11-0500 Heart rate 78 /min Myesha Angel DENTURE LABORATORY TECHNICIAN.CREDIT REPORTER Work Phone: [facility] 06-17-2024 14:11-0500 Respiratory rate 20 /min Myesha Angel DENTURE LABORATORY TECHNICIAN.CREDIT REPORTER Work Phone: [facility] 06-17-2024 14:11-0500 SaO2% (BldA) [Mass fraction] 98 % Myesha King DENTURE LABORATORY TECHNICIAN.CREDIT REPORTER Work Phone: [facility] 06-17-2024 14:11-0500 Systolic blood pressure 148 mm[Hg] Myesha Angel DENTURE LABORATORY TECHNICIAN.CREDIT REPORTER Work Phone: [facility] 02-08-2023 16:17-0400 Body height 170.18 cm [facility] 02-08-2023 16:17-0400 Body mass index (BMI) [Ratio] 31.7 kg/m2 [facility] 02-08-2023 16:17-0400 Body weight 91.85 kg [facility] 02-08-2023 15:45-0400 Body temperature 96.5 [degF] [facility] 02-08-2023 15:45-0400 Diastolic blood pressure 96 mm[Hg] [facility] 02-08-2023 15:45-0400 Heart rate 77 /min [facility] 02-08-2023 15:45-0400 Respiratory rate 18 /min [facility] 02-08-2023 15:45-0400 SaO2% (BldA) [Mass fraction] 99 % [facility] 02-08-2023 15:45-0400 Systolic blood pressure 139 mm[Hg] [facility] Encounters Encounter Date Encounter Type Care Provider Facility Start: 01-14-2025 ambulatory Layo HERR Facilit y:[facility] Start: 01-13-2025 ambulatory [facility] Start: 12-31-2024 ambulatory Layo HERR Facilit y:[facility] Start: 12-28-2024 ambulatory Layo HERR Facilit y:[facility] Start: 12-18-2024 End: 12-18-2024 ambulatory Layo HERR Facility:[facility] Start: 12-18-2024 End: 12-18-2024 ambulatory Layo HERR Facility:[facility] Start: 12-09-2024 End: 12-09-2024 ambulatory Layo HERR Facility:[facility] Start: 11-06-2024 End: 11-06-2024 Emergency department patient visit Keke Jackson Facility:[facility] Start: 11-06-2024 End: 11-06-2024 Patient encounter procedure Buddy Temple APRN.CREDIT REPORTER Work Phone: [facility] Comment on above: Chest pain, unspecif ied type (Primary Dx) Start: 11-06-2024 End: 11-06-2024 ambulatory KEKE JACKSON Facility:[facility] Start: 11-05-2024 Encounter for genera l adult medical examination without abnormal findings aziza Lovearyan [facility] Start: 11-04-2024 End: 11-04-2024 ambulatory Aspen Montgomery Facility:[facility] Start: 10-30-2024 End: 10-30-2024 ambulatory Keke Lovearyan Facility:[facility] Start: 10-30-2024 End: 10-30-[facility] Facility[facility] Start: 10-16-2024 End: 10-16-2024 Office outpatient visit 25 minutes Opal Kenny APRN, CNP Work Phone: [facility] Comment on above: Gender dysphoria (Pr imary Dx); Hair thinning Start: 10-13-2024 End: 10-13-2024 ambulatory BRENT SMITH LIZZETTE [facility] Start: 09-10-2024 End: 09-10-2024 ambulatory Aspen [place] Facility:[facility] Start: 08-26-2024 End: 08-26-2024 ambulatory BRENT CROCKER [facility] Start: 07-16-2024 End: 07-16-2024 ambulatory RONDA COHENERWIN Facility:[facility] Start: 07-10-2024 End: 07-10-2024 ambulatory BRENT CROCKER [facility] Start: 07-09-2024 End: 07-09-2024 ambulatory BRENT CROCKER Facility:[facility] Start: 07-09-2024 End: 07-09-2024 Office outpatient visit 15 minutes Minerva Easton APRN.CNP Work Phone: [facility] Comment on above: Acute right-sided lo w back pain with right-sided sciatica (Primary Dx) Start: 07-06-2024 End: 07-06-2024 ambulatory BREEZYANNE SMITH LIZZETTE [facility] Start: 07-05-2024 End: 07-05-2024 ambulatory Yuko Ross RN NURSE [employer]PET INST[employer]ER HELPER Comment on above: Syncope Start: 07-05-2024 End: 07-05-2024 Emergency department patient visit Nash Geller Facility:[facility] Start: 07-04-2024 End: 07-04-2024 ambulatory ANNE Adams LIZZETTE Facility:[facility] Start: 07-04-2024 End: 07-04-2024 Patient encounter procedure Emely Acuna DENTURE LABORATORY TECHNICIAN.CREDIT REPORTER Work Phone: [facility] Comment on above: URI with cough and c ongestion (Primary Dx); Flu-like symptoms; Wheezing Start: 07-02-2024 End: 07-02-2024 Office outpatient visit 25 minutes Holden Rogers MD Work Phone: [facility] Comment on above: Acute cough (Primary Dx) Start: 07-02-2024 End: 07-02-2024 ambulatory BRENT CROCKER Facility:[facility] Start: 07-02-2024 End: 07-02-2024 Subsequent hospital visit by physician Xr [facility] Work Phone: Radiology Comment on above: Acute cough [R05.1] Start: 06-17-2024 End: 06-17-2024 Subsequent hospital visit by physician Xr [facility] Work Phone: Radiology Comment on above: Acute cough [R05.1] Start: 06-17-2024 End: 06-17-2024 ambulatory MYESHA ANGEL Facility:[facility] Start: 06-17-2024 End: 06-17-2024 Patient encounter procedure Myesha King SHIVANI.CREDIT REPORTER Work Phone: [facility] Comment on above: URI, acute (Primary Dx); Acute cough; History of asthma Start: 06-15-2024 End: 06-15-2024 ambulatory [facility] Start: 06-04-2024 End: 06-04-2024 ambulatory [facility] Facility:[facility] Start: 05-05-2024 End: 05-05-2024 ambulatory [facility] Facility:[facility] Start: 04-13-2024 ambulatory OPALGISELE RODRIGUEZ F acility:[facility] Start: 04-13-2024 End: 04-13-2024 Subsequent hospital visit by physician Screen Mammo [facility] RADIO [facility]AMMO [facility] Comment on above: z12.31 Start: 03-24-2024 End: 03-24-2024 ambulatory Aspen [place] Facility:[facility] Start: 01-28-2024 End: 01-28-2024 ambulatory Aspen [place] Facility:[facility] Start: 12-11-2023 End: 12-11-2023 ambulatory ANNE SMITH [facility] Start: 08-23-2023 End: 08-23-2023 Office outpatient visit 25 minutes Opal Kenny APRN, CNP Work Phone: [facility] Comment on above: Gender dysphoria (Pr imary Dx); Hair thinning Start: 05-02-2023 End: 05-02-2023 ambulatory [facility] Start: 2023 End: 2023 Office outpatient visit 15 minutes Opal Kenny APRN, CNP Work Phone: [facility] Comment on above: Gender dysphoria (Pr imary Dx) Start: 02-08-2023 End: 02-08-2023 Emergency department patient visit [facility] Work Phone: Start: 11-21-2022 End: 11-21-2022 Office outpatient visit 25 minutes Opal Kenny APRN, CNP Work Phone: [facility] Comment on above: Gender dysphoria (Pr imary Dx) Start: 08-22-2022 End: 08-22-2022 Office outpatient visit 25 minutes Opal Kenny APRN, CNP Work Phone: [facility] Comment on above: Gender dysphoria (Pr imary Dx) Start: 2022 End: 2022 ambulatory No PCP Facility:[facility] Start: 2022 End: 2022 ambulatory No PCP [facility] Work Phone: Start: 2022 End: 2022 Patient encounter procedure No PCP [facility]-Radiology Procedures Date Procedure Procedure Detail Performing Clinician Start: 07-02-2024 Radiologic exam ches t 2 views Holden Rogers MD Work Phone: Start: 06-17-2024 Radiologic exam ches t 2 views Myesha Ortiz [facility] Work Phone: Start: 2022 Plain X-ray of finger N o PCP Plan of Treatment Date Care Activity Detail Author Start: 10-19-2031 Tetanus vaccination [facility] [employer] Start: 10-19-2031 Urine microalbumin profile DTaP,Tdap,Td Vaccine (4 - Td or Tdap) [facility] Start: 04-08-2028 Screening for malign ant neoplasm of colon [facility] [employer] Start: 08-23-2027 [facility] Start: 05-22-2027 [facility] Start: 12-10-2026 [facility] Start: 04-13-2026 Screening for malign ant neoplasm of breast Breast Cancer Screening (Mammogram) [facility] Start: 10-16-2025 Hypertension screening Hyperte nsion Screening (#1) [facility] [employer] Start: 10-16-2025 Tobacco Screening Tobacco [facility]ening [facility] [employer] Start: 08-22-2025 Diabetes mellitus screening Diabetes Screening [facility] [employer] Start: 01-18-2025 Influenza vaccination [employer] Start: 01-16-2025 Depression Monitoring Depression [facility] Start: 10-17-2024 End: 10-16-2025 Assay of estradiol ASSAY OF TOTAL ESTRADIOL Routine Lab Routine Gender dysphoria Expected: 10/17/2024, Expires: 10/16/2025 [employer] Work Phone: Comment on above: Expected: 10/17/2024 , Expires: 10/16/2025 Start: 10-17-2024 End: 10-16-2025 Assay of testosterone total ASSAY OF TESTOSTERONE TOTAL Routine Lab Routine Gender dysphoria Expected: 10/17/2024, Expires: 10/16/2025 [employer] Work Phone: Comment on above: Expected: 10/17/2024 , Expires: 10/16/2025 Start: 10-17-2024 End: 10-16-2025 Comprehensive metabolic panel COMPREHENSIVE METABOLIC PANEL Routine Lab Routine Gender dysphoria Expected: 10/17/2024, Expires: 10/16/2025 [employer] Phone: Comment on above: Expected: 10/17/2024 , Expires: 10/16/2025 Start: 07-31-2024 Diabetes mellitus screening Diabetes Screening [facility] Start: 02-07-2024 Hepatitis C screening Hepatitis C Sc reening [facility] Comment on above: Postponed from 05/01 (Patient declines) Start: 02-07-2024 Screening for malign ant neoplasm of colon Colorectal Cancer Screening [facility] Comment on above: Postponed from 05/01 (Pending outside records) Start: 02-07-2024 Thyroid stimulating hormone measurement TSH Monitoring [employer] Comment on above: Postponed from 05/01 (Pending outside records) Start: 02-07-2024 Tobacco Screening Tobacco Screening [facility] Start: 02-01-2024 Diabetes mellitus screening Diabetes Screening [facility] Start: 01-19-2024 Covid-19 Vaccine ( season) Covid-19 Vaccine () [facility] Start: 01-19-2024 Influenza vaccination [employer] Start: 11-22-2023 Depression Monitoring Depression [facility] Start: 11-14-2023 Diabetes mellitus screening Diabetes Screening [employer] Start: 08-24-2023 End: 08-20-2024 Assay of estradiol ASSAY OF TOTAL ESTRADIOL Lab Routine Gender dysphoria Expected: 08/24/2023, Expires: 08/20/2024 [employer] Work Phone: Comment on above: Expected: 08/24/2023 , Expires: 08/20/2024 Start: 08-24-2023 End: 08-20-2024 Assay of testosterone total ASSAY OF TESTOSTERONE TOTAL Lab Routine Gender dysphoria Expected: 08/24/2023, Expires: 08/20/2024 [employer] Work Phone: Comment on above: Expected: 08/24/2023 , Expires: 08/20/2024 Start: 08-24-2023 End: 08-20-2024 Comprehensive metabolic panel COMPREHENSIVE METABOLIC PANEL Lab Routine Gender dysphoria Expected: 08/24/2023, Expires: 08/20/2024 [employer] Work Phone: Comment on above: Expected: 08/24/2023 , Expires: 08/20/2024 Start: 05-08-2023 Depression Monitoring Depression [facility] Start: 05-08-2023 Hepatitis B vaccination Imm-He patitis B (1 of 3 - 3-dose series) [facility] Comment on above: Postponed from 05/01 (Patient declines) Start: 05-08-2023 HIV Screening HIV Screening [facility] Comment on above: Postponed from 05/01 (Patient declines) Start: 2023 Imm-Zoster, Recombin ant (1 of 2) Imm-Zoster, Recombinant (1 of 2) [facility] Start: 2023 Screening for malign ant neoplasm of breast Breast Cancer Screening (Mammogram) [facility] Start: 2023 Shingrix Vaccine (1 of 2) Shingrix Vaccine (1 of 2) [facility] Start: 02-21-2023 End: 05-24-2023 Assay of estradiol ASSAY OF TOTAL ESTRADIOL Lab Routine Gender dysphoria Expected: 02/21/2023, Expires: 05/24/2023 [employer] Work Phone: Comment on above: Expected: 02/21/2023 , Expires: 05/24/2023 Start: 02-21-2023 End: 05-24-2023 Assay of testosterone total ASSAY OF TESTOSTERONE TOTAL Lab Routine Gender dysphoria Expected: 02/21/2023, Expires: 05/24/2023 [employer] Work Phone: Comment on above: Expected: 02/21/2023 , Expires: 05/24/2023 Start: 02-21-2023 End: 05-24-2023 Comprehensive metabolic panel COMPREHENSIVE METABOLIC PANEL Lab Routine Gender dysphoria Expected: 02/21/2023, Expires: 05/24/2023 [employer] Work Phone: Comment on above: Expected: 02/21/2023 , Expires: 05/24/2023 Start: 01-19-2023 Hypertension screening Hyperte nsion Screening (#1) [facility] Start: 01-18-2023 Influenza vaccination Imm-Influenza (#1) [facility] Start: 08-23-2022 End: 12-22-2022 Assay of estradiol ASSAY OF TOTAL ESTRADIOL Lab Routine Gender dysphoria Expected: 08/23/2022, Expires: 12/22/2022 [employer] Work Phone: Comment on above: Expected: 08/23/2022 , Expires: 12/22/2022 Start: 08-23-2022 End: 12-22-2022 Assay of testosterone total ASSAY OF TESTOSTERONE TOTAL Lab Routine Gender dysphoria Expected: 08/23/2022, Expires: 12/22/2022 [facility] Work Phone: Comment on above: Expected: 08/23/2022 , Expires: 12/22/2022 Start: 08-23-2022 End: 12-22-2022 Comprehensive metabolic panel COMPREHENSIVE METABOLIC PANEL Lab Routine Gender dysphoria Expected: 08/23/2022, Expires: 12/22/2022 [facility] Phone: Comment on above: Expected: 08/23/2022 , Expires: 12/22/2022 Start: 05-20-2022 Screening for substa nce abuse Alcohol and Drug Screen [facility] Start: 04-20-2022 Depression Monitoring Depression [facility] Start: 06-14-2021 Ryw-[id number]-69 (4 - Booster for Pfizer series) Vrc-SKHFQ-86 (4 - Booster for Pfizer series) [facility] Start: 06-14-2021 Ney-CXUXK-73 (4 - Pf izer series) Zkq-IJNJH-49 (4 - Pfizer series) [facility] Start: 2018 Screening for malign ant neoplasm of colon [facility] Start: 2008 Lipid panel Lipid Screening [facility] Start: 1992 Hepatitis B vaccination Imm-He patitis B (1 of 3 - 19+ 3-dose series) [facility] Start: 1992 Hepatitis B Vaccine (1 of 3 - 19+ 3-dose series) Hepatitis B Vaccine (1 of 3 - 19+ 3-dose series) [facility] Start: 1991 Anxiety Screening Anxiety Screening [facility] Start: 1991 Depression Screening Depression Scre ening [facility] Start: 1991 Hepatitis C [facility] Start: 1991 HIV screening HIV Screening [facility] Start: 1988 HIV Screening HIV Screening [facility] Start: 1988 Relationship Safety Screening/Counseling Relationship Safety Screening/Counseling [facility] Start: 1983 Diabetes mellitus screening Diabetes Screening [facility] Start: 1973 Anxiety Screening Anxiety Screening [facility] Start: 1973 Hepatitis B vaccination Imm-He patitis B (1 of 3 - 3-dose series) [facility] Start: 1973 Hepatitis C screening Hepatitis C Sc [facility] Start: 1973 Lipid panel Lipid Screening [facility] Start: 1973 Thyroid stimulating hormone measurement TSH Monitoring [facility] COVID & INFLUENZA A/ B & RSV PCR, ROUTINE COVID & INFLUENZA A/B & RSV PCR, ROUTINE Microbiology Routine URI with cough and congestion Ordered: 07/04/2024 [facility] Work Phone: Comment on above: Ordered: 07/04/2024 Patient Education Anatomy of the Brain [facility] Work Phone: Patient referral [facility] Work Phone: [facility] Immunizations Immunization Date Immunization Notes Care Provider Kristie gilbert 02-19-2022 influenza virus vaccine, unspecified formulation Opal Kenny APRN, CNP Work Phone: [facility] Work Phone: 01-23-2022 influenza, injectabl e, quadrivalent, preservative free Opal Kenny APRN, CNP Work Phone: [facility] Work Phone: 01-23-2022 PNEUMOCOCCAL CONJUGA TE PCV 20 Opal Kenny DENTURE LABORATORY TECHNICIAN,CREDIT REPORTER Work Phone: [facility] Work Phone: 10-18-2021 tetanus toxoid, redu geovani diphtheria toxoid, and acellular pertussis vaccine, adsorbed Opal Kenny DENTURE LABORATORY TECHNICIAN,CREDIT REPORTER Work Phone: [facility] Work Phone: 01-24-2021 influenza, injectabl e, quadrivalent, preservative free Opal Kenny DENTURE LABORATORY TECHNICIAN,CREDIT REPORTER Work Phone: [facility] Work Phone: 01-26-2020 influenza, injectabl e, quadrivalent, preservative free Opal Kenny DENTURE LABORATORY TECHNICIAN,CREDIT REPORTER Work Phone: [facility] Work Phone: 02-21-2019 influenza, injectabl e, quadrivalent, preservative free Opal Kenny DENTURE LABORATORY TECHNICIAN,CREDIT REPORTER Work Phone: [facility] Work Phone: 02-22-2018 influenza, injectabl e, quadrivalent, preservative free Opal Kenny DENTURE LABORATORY TECHNICIAN,CREDIT REPORTER Work Phone: [facility] Work Phone: 06-08-2017 influenza, injectabl e, quadrivalent, preservative free Opal Kenny DENTURE LABORATORY TECHNICIAN,CREDIT REPORTER Work Phone: [facility] Work Phone: 01-04-2016 influenza, seasonal, injectable, preservative free Opal Kenny DENTURE LABORATORY TECHNICIAN,CREDIT REPORTER Work Phone: [facility] Work Phone: 03-04-2015 influenza, seasonal, injectable, preservative free Opal Kenny DENTURE LABORATORY TECHNICIAN,CREDIT REPORTER Work Phone: [facility] Work Phone: 04-21-2013 influenza virus vaccine, unspecified formulation Opal Kenny DENTURE LABORATORY TECHNICIAN,CREDIT REPORTER Work Phone: [facility] Work Phone: 04-21-2013 influenza virus vaccine, whole virus Opal Kenny DENTURE LABORATORY TECHNICIAN,CREDIT REPORTER Work Phone: [facility] 02-20-2013 measles, mumps and rubella virus vaccine Opal Zoya DENTURE LABORATORY TECHNICIAN,CREDIT REPORTER Work Phone: [facility] Work Phone: 04-26-2010 diphtheria, tetanus toxoids and acellular pertussis vaccine, unspecified formulation Opal Kenny DENTURE LABORATORY TECHNICIAN,CREDIT REPORTER Work Phone: [facility] Work Phone: 04-26-2010 tetanus toxoid, redu geovani diphtheria toxoid, and acellular pertussis vaccine, adsorbed Opal Kenny DENTURE LABORATORY TECHNICIAN,CREDIT REPORTER Work Phone: [facility] Work Phone: Payers Date Payer Category Payer Private Health Insurance MMO SUP ERMED PPO [id number] 2023 Unknown MMO MMO SUPERMED PPO [id number] 2023-Present [phone] [address] [place] [address] PPO [id number] 2023 Private Health Insurance [id number] 2023 Unknown [id number] 2022 Private Health Insurance [id number] 2022 Unknown [id number] 2022 Private Health Insurance [id number] 2022 Self-pay 2022 Worker's Compensation [id number] 2021 Unknown MEDICAL MUTUAL O F [facility] [id number] 2021-Present [phone] [address] [address] [place] [address] Indemnity [id number] 2020 Private Health Insurance [id number] .[id number] 2000 Unknown [id number] 1973 Unknown [id number] 2.16840.1.056723.3.579.2. 903 1973 Unknown [id number] 2.16840.1.502692.3.579.2. 903 1973 Unknown [id number] 2.16840.1.166439.3.579.2. 903 1973 Unknown [id number] 2.0.1.505685.3.579.2. 903 1973 Unknown [id number] 2.16.840.1.098585.3.579.2. 903 1973 Unknown [id number] 2.16.840.1.632649.3.579.2. 903 1973 Unknown [id number] 2.16.840.1.477850.3.579.2. 903 1973 Unknown [id number] 2.840.1.540852.3.579.2. 903 1973 Unknown [id number] 2.16.840.1.063077.3.579.2. 1249 Unknown ANTHEM [id number] Unknown [id number] 2.16.840.1.585647.3.579.2. 1186 Unknown [id number] 2.840.1.793523.3.579.2. 462 Unknown [id number] 2.840.1.268691.3.579.2. 462 Unknown [id number] 2.840.1.900834.3.579.2. 462 Unknown [id number] 2.16840.1.057518.3.579.2. 462 Unknown [id number] 2.16840.1.368727.3.579.2. 462 Unknown [id number] 2.840.1.604134.3.579.2. 462 Unknown [id number] 2.16840.1.553963.3.579.2. 462 Unknown [id number] 2.16.840.1.612140.3.579.2. 462 Unknown [id number] 2.16.840.1.266910.3.579.2. 462 Unknown [id number] 2.16.840.1.016588.3.579.2. 462 Unknown [id number] 2.16840.1.273120.3.579.2. 462 Unknown [id number] 2.16.840.1.094924.3.579.2. 462 Unknown [id number] 2.16.840.1.337749.3.579.2. 462 Unknown [id number] 2.16.840.1.306213.3.579.2. 462 Unknown [id number] 2.16.840.1.223913.3.579.2. 462 Unknown [id number] 2.16.840.1.707254.3.579.2. 462 Unknown [id number] 2.16.840.1.568261.3.579.2. 462 Social History Date Type Detail Facility [facility] Work Phone: Start: 1975 Sex Assigned At Male F [facility] Start: 01-19-2022 End: 06-17-2024 Tobacco smoking status NHIS Never smoked tobacco [facility] Phone: Start: 01-19-2022 End: 06-17-2024 Tobacco use and exposure Smokeless tobacco non-user [facility] Phone: Start: 01-19-2022 End: 10-16-2024 Alcohol intake Lifetime non-drinker (finding) [facility] Phone: Start: 08-17-2022 End: 04-13-2024 History of Social function [facility] Phone: Start: 08-17-2022 End: 04-13-2024 Social Connections [facility] Start: 11-18-2019 Social Connections a nd Isolation 2 [facility] Start: 02-08-2023 [facility] if ever smoked [facility] Start: 1975 Sex assigned at [facility] History of tobacco use Passive smoker [facility] Mental Status Date Assessment Result Facility 02-08-2023 Cognitive function Awake;Alert;Appropriat e [facility] Work Phone: Clinical Notes 04-05-2023 to 11-06-2024 Buddy Temple APRN.[facility] - 11/06/2024 5:22 PM Surekha Kenny APRN,LULU - 10/16/2024 12:29 PM Leydi Washington MA - 10/16/2024 11:00 AM Surekha Kenny APRN, CNP - 10/16/2024 11:00 AM EDT Note Date & Type Note Facility 11-06-2024 Note HNO ID: [id number] Author: BUDDY TEMPLE APRN.[facility] Service: ? Author Type: Nurse Practitioner Type: Progress Notes Filed: 11/06/2024 17:40 Note Text: Patient came in with complaints of chest pain. Patient says has been going on for about a week but the last 3 days has gotten worse. Patient says he did recently stop taking his Klonopin. Patient said about 2 weeks ago as when he stopped said he felt better. Patient wanted to know if he have any EKG to rule out cardiac symptoms did let him know that we do not do that here at the present time. Patient is being referred to the emergency room for evaluation. Patient agreeable and wants to take himself. [facility] 11-06-2024 History of Present illness Narrative Patient came in with complaints of chest pain. Patient says has been going on for about a week but the last 3 days has gotten worse. Patient says he did recently stop taking his Klonopin. Patient said about 2 weeks ago as when he stopped said he felt better. Patient wanted to know if he have any EKG to rule out cardiac symptoms did let him know that we do not do that here at the present time. Patient is being referred to the emergency room for evaluation. Patient agreeable and wants to take himself. documented in this encounter [facility] 10-16-2024 History of Present illness Narrative Associated [...] increase spironolactone today Patient connected with in [place]. - patient today reports not seen in 3 months has felt good and reports they got to a point where things just weren't going anywhere. Went to a group therapy for trans women in [place] and found it somewhat helpful, motivated to [...] Center 01/13/2025 9:00 AM Opal Kenny APRN,[facility] ROS & Physical Exam Review of Systems [...] Mood normal. Rooming Note: Reuben presents to [facility] today for Gender Affirming Hormone Therapy Since [...] increase spironolactone today Patient connected with in [place]. - patient today reports not seen in 3 months has felt good and reports they got to a point where things just weren't going anywhere. Went to a group therapy for trans women in [place] and found it somewhat helpful, motivated to go back Plan: Change dose/Add new med Order labs Increase spironolactone to 100mg daily Follow up and labs in 3 months documented in this encounter [facility] Phone: 10-16-2024 Miscellaneous Notes Healthy Eating 101 [...] nutrition is scarce. documented in this encounter [facility] Phone: 10-13-2024 Note DATE: 10/14/2024 CHIEF COMPLAINT: [...] Procedure: COLONOSCOPY; Surgeon: Dago Davis MD; Location: [facility]; Service: General Surgery COLONOSCOPY W/ POLYPECTOMY 2019 [place] COLONOSCOPY W/ POLYPECTOMY 11/10/2011 CYSTO CYSTO EGD N/A 10/16/2022 Procedure: ESOPHAGOGASTRODUODENOSCOPY WITH BIOPSY, ENDO FLIP AND SHEA CHIP PLACEMENT; Surgeon: Dago Davis MD; Location: [facility]; Service: General Surgery MULTIPLE TOOTH EXTRACTIONS 10/25/2022 with cyst excision PROLONGED ACID REFLUX TEST 48H PH N/A 10/16/2022 Procedure: PROLONGED ACID REFLUX TEST 48H PH; Surgeon: Dago Davis MD; Location: [facility]; Service: General Surgery SH Social History [1] [...] and Dx with IC followed up in [place] about 3 years ago and was told [...] up 3 sam (more content not included)... [facility] 08-26-2024 Note OFFICE VISIT JEREMY S [...] but recently more Normally 1-2 10 Now 3-4 /10 sometimes up to 5 When I reviewed [...] can place a referral Talk to your [facility] health provider about using amitriptyline for this Also consider flexeril if we can't use that If you fine a wearing apparel assembler at the [facility] to see for this I can place a referral We talked little bit about fibromyalgia Recommended treatment would be to start with physical therapy and consider using something like amitripty (more content not included)... [facility] 07-10-2024 Note OFFICE VISIT JEREMY Hobbs [...] using Flonase can be helpful or using [place] mist nasal spray And then something for the cough, sejg-qad-tupwkrw like NyQuil DayQuil, or Robitussin or Mucinex are all acceptable. Taking zinc up to 50 mg daily if it started early on in the illness has been shown to slightly decrease the length of time that you have the cold. Another study showed that eating grandma's chicken soup was as good as most medications to help with the common cold. For prevention of colds The #1 best thing is frequent handwashing Second would be the use of a microsoft windows engineer to be sure that the utensils that go in your mouth are washed with very hot water And third would be zinc, those who took 30 to 50 mg daily for 5 months prior to cold seasons had fewer colds Relevant Medications azithromycin (Z-DAIJA) 5 day dose pack (more content not included)... [facility] 07-09-2024 Instructions Minerva Easton APRN.CREDIT REPORTER - 07/09/2024 4:54 PM EST ASSESSMENT/PLAN: 1. [...] or bowel control. documented in this encounter [facility] 07-09-2024 Note HNO ID: [id number] Author: MINERVA EASTON APRN.[facility] Service: ? Author [...] he passed out. Pt reports going to [place] [facility] to be evaluated, which he was [...] Discussed expected course of illness TEACHING PROVIDER (Physician/PA/DENTURE LABORATORY TECHNICIAN) NOTE OF PERSONAL INVOLVEMENT IN CARE: I have personally seen and examined the patient and performed the medical decision-making components. I have reviewed the Advanced Practice Registered Nurse (DENTURE LABORATORY TECHNICIAN) Student's documentation and verified the findings in the note as w (more content not included)... [facility] 07-09-2024 History of Present illness Narrative Subjective [...] he passed out. Pt reports going to [place] [facility] to be evaluated, which he was [...] - PREDNISONE 10 MG TABLET Mary Jane Fultondarius - Follow-up with your PCP in 3-5 days if symptoms have not improved or sooner if symptoms worsen - Discussed red flags and need for immediate medical evaluation if any occur. - Discussed supportive care treatment with fluids, rest and analgesia. - Discussed expected course of illness TEACHING PROVIDER (Physician/PA/DENTURE LABORATORY TECHNICIAN) NOTE OF PERSONAL INVOLVEMENT IN CARE: I have personally seen and examined the patient and performed the medical decision-making components. I have reviewed the Advanced Practice Registered Nurse (DENTURE LABORATORY TECHNICIAN) Student's documentation and verified the findings in the note as written. Any additions or changes are noted in bold/italics. Signature: Minerva Easton Date: 07/09/2024 Time: 5:07 PM documented in this encounter [facility] 07-06-2024 Note Patient: Reuben Carreno : 1975 Date: 07/06/24 This 49 y.o. adult presents for No chief complaint on file. Video Visit [facility] [address] [facility] [address] [facility] [id number] Video Visit [facility] 07/06/2024 Tianna Salcido CNP Provider Location: [facility] office Patient Location Rubber Mill Operator: None Patient Location: Patient's Home Video Visit [...] there are inherent diagnostic limitations compared to bbmx-lf-xsvr evaluations. We elected to proceed with the video visit telemedicine consultation. History of Present Illness: His daughter is repeating what he is whispering because he has lost his voice. Started with a cough on Saturday, 7 days ago. Saturday saw the nurse at work. Then went to [facility] was told was viral. Got x-ray to rule out pneumonia. He had wheezing. Was given Tessalon perles. He also took Robitussin. He is producing a lot of phlegm, it is green. (Dry now) Was coughing very often during the night. Maybe 40 times. Saw doctor again because the throat was really irritated. Was online from [employer]. [facility]. Got another x-ray-no pneumonia. [...] He called another nurse line on Saturday morning-[facility]. Was told to go to emergency room. [...] problem, so he went back to the [facility]. He wanted us to have the [...] Procedure: COLONOSCOPY; Surgeon: Dago Davis MD; Location: [facility]; Service: General Surgery COLONOSCOPY W/ POLYPECTOMY 2019 [place] COLONOSCOPY W/ POLYPECTOMY 11/10/2011 CYSTO CYSTO EGD N/A 10/16/2022 Procedure: ESOPHAGOGASTRODUODENOSCOPY WITH BIOPSY, ENDO FLIP AND SHEA CHIP PLACEMENT; Surgeon: Dago Davis MD; Location: [facility]; Service: General Surgery MULTIPLE TOOTH EXTRACTIONS 10/25/2022 with cyst excision PROLONGED ACID REFLUX TEST 48H PH N/A 10/16/2022 Procedure: PROLONGED ACID REFLUX TEST 48H PH; Surgeon: Dago Davis MD; Location: [facility]; Service: General Surgery Family History: Family History [...] Drug use: Not Currently Social Drivers of [employer] (more content not included)... [facility] 07-05-2024 Telephone encounter Note Reason for Call: Patient stated he lost consciousness after a coughing attack from [id number] today, his cough is worse today, and had a head injury resulting in new bruise on his head. Outcome: Patient confirmed he will seek transport to [facility] now and was advised to call 911, if needed. Reason for Disposition Any head or face injury Protocols used: Oomejcpf-PDQVY-ZX [facility] 07-05-2024 Miscellaneous Notes Reason for Call: Patient stated he lost consciousness after a coughing attack from [phone] today, his cough is worse today, and had a head injury resulting in new bruise on his head. Outcome: Patient confirmed he will seek transport to [facility] now and was advised to call 911, if needed. Reason for Disposition Any head or face injury Protocols used: Fwovaeuq-ZXFDC-ZQ documented in this encounter [facility] 07-04-2024 Note SARS-COV-2 (AGENT OF COVID-19) RNA: Not detected INFLUENZA A RNA: Not detected INFLUENZA B RNA: Not detected RESPIRATORY SYNCYTIAL VIRUS (RSV) RNA: Not detected [facility] Comment on above: Performed By: #### 9 [id number] ####[facility] LABCLIA [id number] [address] [place] 07-04-2024 Instructions Emely Acuna APRN.[facility] - 07/04/2024 11:56 AM EST Tessalon Perles 2 every 8 hours, do not combine this with robitussin or delsym covid rsv and influenza test ordered You will be notified in 12-24 hours, results available on MyChart Rest, increase water intake Tylenol as needed [...] inability to swallow. documented in this encounter [facility] 07-04-2024 Note HNO ID: [id number] Author: EMELY ACUNA APRN.[facility] Service: ? Author Type: Nurse Practitioner Type: Progress Notes Filed: 07/04/2024 11:56 Note Text: Subjective The history is provided by the patient. No foreign language professor was used. HPI Reuben Carreno is a [...] have confirmed and edited as necessary, the [facility] Review of Systems Constitutional: Positive for malaise/fatigue. [...] detail warranting prompt ER evaluation. Emely Acuna APRN.[facility] 07-04-2024 History of Present illness Narrative Subjective The history is provided by the patient. No foreign language professor was used. HPI Reuben Carreno is a [...] have confirmed and edited as necessary, the [facility] Review of Systems Constitutional: Positive for malaise/fatigue. [...] Emely Acuna APRN.CNP documented in this encounter [facility] 07-02-2024 History of Present illness Narrative Radiology [...] PATIENT PRESENTS WITH AN IMPLANTABLE OR ATTACHED CENTER CUSTOMER SERVICE ASSOCIATE: No RADIOLOGY DEPARTMENT: General X-ray: Exam(s) Completed: Chest X-Ray PERIPHERAL IV DATA: Not applicable SIGNED BY: Charlotte Mason July 02, 2024 1:50 PM documented in this encounter [facility] 07-02-2024 Note HNO ID: [id number] Author: CRISSY VALERA Tech Service: ? Author [...] PATIENT PRESENTS WITH AN IMPLANTABLE OR ATTACHED CENTER CUSTOMER SERVICE ASSOCIATE: No RADIOLOGY DEPARTMENT: General X-ray: Exam(s) Completed: Chest X-Ray PERIPHERAL IV DATA: Not applicable SIGNED BY: Charlotte Mason July 02, 2024 1:50 PM [facility] 07-02-2024 Note HNO ID: [id number] Author: HOLDEN ROGERS MD Service: ? Author [...] Reactions Fluvoxamine Other: See Comments Hypertension Nitrofurantoin Queens* Other: See Comments Hypertension Latex, Natural Rubb* [...] or late onset fever. Holden Rogers MD [facility] 07-02-2024 History of Present illness Narrative Patient [...] Reactions Fluvoxamine Other: See Comments Hypertension Nitrofurantoin [place]* Other: See Comments Hypertension Latex, Natural Rubb* [...] Holden Rogers MD documented in this encounter [facility] 06-17-2024 History of Present illness Narrative Radiology [...] PATIENT PRESENTS WITH AN IMPLANTABLE OR ATTACHED CENTER CUSTOMER SERVICE ASSOCIATE: No RADIOLOGY DEPARTMENT: General X-ray: Exam(s) Completed: Chest X-Ray PERIPHERAL IV DATA: Not applicable SIGNED BY: Charlotte Mason June 17, 2024 2:23 PM documented in this encounter [facility] 06-17-2024 Note HNO ID: [id number] Author: CRISSY VALERA Tech Service: ? Author [...] PATIENT PRESENTS WITH AN IMPLANTABLE OR ATTACHED CENTER CUSTOMER SERVICE ASSOCIATE: No RADIOLOGY DEPARTMENT: General X-ray: Exam(s) Completed: Chest X-Ray PERIPHERAL IV DATA: Not applicable SIGNED BY: Charlotte Mason June 17, 2024 2:23 PM [facility] 06-17-2024 Note HNO ID: [id number] Author: MYESHA ORTIZ APRN.CREDIT REPORTER Service: ? Author Type: Nurse Practitioner Type: [...] HFA 90 MCG/ACTUATION AEROSOL INHALER Myesha Ortiz APRN.[facility] 06-17-2024 History of Present illness Narrative Subjective HPI HPI Reuben Rain Carreno is a 49 year old male [...] HFA 90 MCG/ACTUATION AEROSOL INHALER Myesha Ortiz APRN.CREDIT REPORTER documented in this encounter [facility] 06-15-2024 Note Patient: Reuben Carreno : 1975 [...] then to 15 bid. Rubi Vizcarra from [facility], prescribes. He has called their office [...] Procedure: COLONOSCOPY; Surgeon: Dago Davis MD; Location: [facility]; Service: General Surgery COLONOSCOPY W/ POLYPECTOMY 2019 [place] COLONOSCOPY W/ POLYPECTOMY 11/10/2011 CYSTO CYSTO EGD N/A 10/16/2022 Procedure: ESOPHAGOGASTRODUODENOSCOPY WITH BIOPSY, ENDO FLIP AND SHEA CHIP PLACEMENT; Surgeon: Dago Davis MD; Location: [facility]; Service: General Surgery MULTIPLE TOOTH EXTRACTIONS 10/25/2022 with cyst excision PROLONGED ACID REFLUX TEST 48H PH N/A 10/16/2022 Procedure: PROLONGED ACID REFLUX TEST 48H PH; Surgeon: Dago Davis MD; Location: [facility]; Service: General Surgery Family History: Family History [...] min Stress: No Stress Concern Present (06/15/2024) [place] [facility] [employer] - Occupational Stress Questionnaire Feeling of Stress : Not at all Social Connections: Moderately Integrated (06/15/2024) Social Connection and Isolation Panel [NHANES] Frequency of Communication with Friends and Family: Twice a week Frequency of Social Gatherings with Friends and Family: Twice a week Attends Restorationism Services: More than 4 times per year [...] (2 mg tota (more content not included)... [facility] 04-13-2024 History of Present illness Narrative [...] PATIENT PRESENTS WITH AN IMPLANTABLE OR ATTACHED CENTER CUSTOMER SERVICE ASSOCIATE: No RADIOLOGY DEPARTMENT: Mammography PERIPHERAL IV DATA: Not applicable SIGNED BY: RT Peggy(R) April 13, 2024 4:22 PM documented in this encounter [facility] 04-13-2024 Note HNO ID: [id number] Author: CAMILA EMERY RT(R) Service: ? Author [...] PATIENT PRESENTS WITH AN IMPLANTABLE OR ATTACHED CENTER CUSTOMER SERVICE ASSOCIATE: No RADIOLOGY DEPARTMENT: Mammography PERIPHERAL IV DATA: Not applicable SIGNED BY: RT Peggy(Angie) April 13, 2024 4:22 PM [facility] 12-11-2023 Note OFFICE VISIT JEREMY Hobbs NOTE [...] continues to be followed by clinic in [place] for his gender dysphoria Currently taking Estradiol [...] is 32.48 kg/m . Physical Exam Reuben Carreno Is a 48 y.o.. adult. Alert and [...] CBC and Differential (more content not included)... [facility] 08-23-2023 History of Present illness Narrative [...] dose today. Patient is still working in [place], family is now living with patient in [place], and daughter/family are not supportive, patient feels [...] the visit: Rooming Note: Reuben presents to [facility] today for Gender Affirming Hormone Therapy (Pt [...] Additional persons on the call: no one Corporate Claims Examiner used/present: No. HIV testing offered: Yes STI [...] dose today. Patient is still working in [place], family is now living with patient in [place], and daughter/family are not supportive, patient feels trapped between self and family. We discussed restarting estradiol low dose and or increasing spironolactone, patient would like to restart Estrace for now. Plan: Continue same management plan Continue meds as previously prescribed Order labs Restart Estradiol 2 mg daily Cont spironolactone to 50mg daily Follow up and labs in 3 months documented in this encounter [facility] Work Phone: 08-21-2023 Miscellaneous Notes Healthy Eating 101 [...] on line and in the community: Online: [facility] [[email or web address]] Center of Excellence for Trans Health: http://transhealth.[facility]/trans?page =home Primary Care Protocols (medical guidelines for taking care of trans people) http://transhealth.[facility]/trans?page =guidelines-home Feminizing Therapy: http://transhealth.[facility]/trans?page =pkcvtpzkcp-cwkvzyfbwn-edabelm Video for Feminizing Therapy: https://www.RockBeeube.com/watch?v=GJEix- i5pmE Masculinizing Therapy: http://transhealth.[facility]/trans?page =jdquevnfhq-prftymdrpphyh-camzpam Video for Masculinizing Therapy: https://www.RockBeeube.com/watch?v=GAJZ4f wTuyc&feature=youtu.be Community Resources: [place]: http://www.[place].org/ Legal Assistance/ Name and Gender Marker Change: https://WeLink/our-services /ploccr-nyxpapdfi-ijax/legal-clinics/ Gender Marker & Name Change Guide Find instructions for changing your name and gender marker on identity documents and other records for each [facility]. https://WeLink/our-services /hgleuk-avqaeqmuf-fyfi/zsdolm-ijcojj-d jwe-zedtxl-tqsau/ documented in this encounter [facility] Work Phone: 2023 Miscellaneous Notes Healthy Eating 101 [...] on line and in the community: Online: [facility] of Excellence for Trans Health: http://transhealth.[facility]/trans?page =home Primary Care Protocols (medical guidelines for taking care of trans people) http://transhealth.[facility]/trans?page =guidelines-home Feminizing Therapy: http://transhealth.[facility]/trans?page =spqqbwofyj-ponzdxpnxh-iiyxbph Video for Feminizing Therapy: https://www.RockBeeube.com/watch?v=GJEix- i5pmE Masculinizing Therapy: http://transhealth.[facility]/trans?page =thjnaswrig-axaswcsgvrkra-dgpstpi Video for Masculinizing Therapy: https://www.RockBeeube.com/watch?v=GAJZ4f wTuyc&feature=youtu.be Community Resources: [place]: http://www.[place].org/ Legal Assistance/ Name and Gender Marker Change: https://WeLink/Let it Waveservices /gmrote-bxrntkszt-crle/legal-clinics/ Gender Marker & Name Change Guide Find instructions for changing your name and gender marker on identity documents and other records for each [facility]. https://WeLink/our-services /tcpldz-gkvwfkvyj-ocbe/fmmwjj-onlgtz-g jkp-atgmow-qbnij/ You might get an email asking you to complete a survey about your visit today. We hope you will take a few minutes and answer some questions about your experience. Your responses let us know what is working well and where we can improve. The email will come from [employer], which is the company that sends out our patient surveys. Thank you for your feedback and trusting us with your care. documented in this encounter [facility] Work Phone: 2023 History of Present illness Narrative [...] states that she is still working in [place], family stayed in [facility], she is living in [place] for work and visits family on the [...] Department Center 08/08/2023 2:30 PM Opal Kenny APRN, CNP [facility] ROS & Physical Exam Review of Systems [...] Mood normal. Rooming Note: Reuben presents to [facility] today for Gender Affirming Hormone Therapy Since [...] Additional persons on the call: no one Corporate Claims Examiner used/present: No. HIV testing offered: declined STI [...] states that she is still working in [place], family stayed in [place] [facility], she is living in [place] for work and visits family on the [...] in 3 months documented in this encounter [facility] Phone: 02-08-2023 Discharge summary Note Date/Time February 08, 2023 4:44pm [facility] Medical Records Department [address] [place] [address] Emergency Department Summary 02/08/23 MR#: [id number] Acct: [id number] Name: REUBEN SAPP Rep #: [id number] : 1975 47 From: Nash Geller MD [...] chemical/fumes while at work. 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 His medications have not changed. One of [...] reaction tohis medication. Patient's physician affiliated with [facility]. There are no records at [facility] or laboratory results performed prior to this visit at [facility]. Lab Data Attestation: I reviewed the patient's [...] % (Auto) 55.7 Lymph % (Auto) 29.1 [place] % (Auto) 9.2 Eos % (Auto) 4.0 [...] your Primary Care Provider. Call [facility] ([phone]) or report to the closest Emergency Room. Call 911 if necessary. 02/08/23 1810 <Electronically signed by Nash Geller MD> Cosigner Signature (if applicable): CC: BRENT CROCKER ~ Signed [facility] Work Phone: 1(899) 824-466207-05-2023 Miscellaneous Notes* Patient Instructions - Opal Kenny APRN, CNP - 11/21/2022 7:19 AM EDT You might get an email asking you to complete a survey about your visit today. We hope you will take a few minutes and answer some questions about your experience. Your responses let us know what is working well and where we can improve. The email will come from [employer], which is the company thatsends out our patient surveys. Thank you for your feedback and trusting us with your care.Trans [employer] Resources There are a number of resources available on line and in the community: Online: [facility] [[email or web address]] Center of Excellence for Trans Health: http://transhealth.[facility]/trans?page=home- Primary Care Protocols (medical guidelines for taking care of trans people) http://transhealth.[facility].edu/trans?page=guidelines-home Feminizing Therapy: http://transhealth.[facility]/trans?page=unjaimhevh-nrbjgtfell-nangumz Video for Feminizing Therapy: https://www.RockBeeube.com/watch?v=GJEix-i5pmE Masculinizing Therapy: http://transhealth.[facility]/trans?page=blhbgxaygj-pvbhxlnllshhp-ozrbizu Video for Masculinizing Therapy: https://www.RockBeeube.com/watch?v=JKIW9agUjok&feature=youtu.be Community Resources: [place]: http://www.trans[place].org/ Legal Assistance/ Name and Gender Marker Change: https://WeLink/our-services/lcxvim-vkuxffqxn-riax/legal-clinics/ Gender Marker & Name Change Guide Find instructions for changing your name and gender marker on identity documents and other records for each [facility]. https://WeLink/Let it Waveservices/zmddtp-tnbaztmrc-fpaj/jdzblu-rbhgqd-nnqq- change-guide/ Feminizing Fact Sheet Estrogen Estrogen should [...] options for Smoking Cessation. [facility] Work Phone: 1(289) 418-169307-05-2023 History of Present illness Narrative* Opal Kenny APRN, CNP - 11/21/2022 7:00 AM EDT Images from the original note were not included. Tele-Health Visit Statement [facility] The patient's identity was verified and they have verbally stated that they are currently in the [facility]. The risks, benefits, and alternatives of a realtime synchronous audiovisual consultation were discussed with the patient and/or their guardian and they have given their verbal consent to this tele-health visit. This visit took place via tele-health video visit Additional persons on the call: no one Corporate Claims Examiner used/present: Not Applicable Chief Complaint / HPI: [...] get labs completed at [facility] near home [facility]) Future Appointments Date Time Provider Department Center 02/20/2023 7:30 AM Opal Kenny APRN, CNP [facility] ROS & Physical Exam Review of [...] previously prescribed [facility] Work Phone: [phone] Instructions* Patient Instructions* Opal SHIVANI Kenny,CREDIT REPORTER - 08/22/2022 7:37 AM EDT Healthy Eating [...] on line and in the community: Online: [facility] [[email or web address]] Center of Excellence for Trans Health: http://transhealth.[facility]/trans?page=home- Primary Care Protocols (medical guidelines for taking care of trans people) http://transhealth.[facility].edu/trans?page=guidelines-home Feminizing Therapy: http://transhealth.[facility].edu/trans?page=qxlxwzjwlg-fzzuiolrcm-eeqeqgk Video for Feminizing Therapy: https://www.RockBeeube.com/watch?v=GJEix-i5pmE Masculinizing Therapy: http://transhealth.[facility]/trans?page=codrmslzei-mytuxylodliky-zkntils Video for Masculinizing Therapy: https://www.RockBeeube.com/watch?v=ISUW3elLqzc&feature=youtu.be Community Resources: [place]: http://www.[place].org/ Legal Assistance/ Name and Gender Marker Change: https://WeLink/our-services/ctosds-gpipobten-ihah/legal-clinics/ Gender Marker & Name Change Guide Find instructions for changing your name and gender marker on identity documents and other records for each [facility]. https://WeLink/our-services/wcoefq-gqljgmttv-lsby/rndcpk-knkrus-xuhh- change-guide/ You might get an email asking you to complete a survey about your visit today. We hope you will take a few minutes and answer some questions about your experience. Your responses let us know what is working well and where we can improve. The email will come from [employer], which is the company thatsends out our patient surveys. Thank you for your feedback and trusting us with your care. [facility] Work Phone: [phone] Miscellaneous Notes* Assessment & Plan Note - [...] draw patient reports he was flying from [place], took estradiol at 11pm and lab draw was the next day around 3. Had a visit with family in [place], and they noticed my breast, butt and [...] and labs 3 months documented in this [facility] Phone: [phone]) [phone] History of Present illness Narrative* Opal Kenny [...] Additional persons on the call: no one Corporate Claims Examiner used/present: No. Chief Complaint / HPI: Chief [...] he 08/22/2022 7:05 AM 05/23[facility]22 [facility] Prescribed estradiol 2 mg BID oral 2 [...] draw patient reports he was flying from [place], took estradiol at 11pm and lab draw was the next day around 3. Had a visit with family in [place], and they noticed my breast, butt and [...] and Affect: Mood normal. 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 Hair thinning Alopecia, unspecified documented in this encounter [facility] Phone: Evaluation note* Diagnosis URI, acute- Primary Acute upper respiratory infections of unspecified site Acute cough History of asthma Personal history of other diseases of respiratory system [facility]* Diagnosis Acute cough- Primary Acute cough documented in this encounter [facility] note* Diagnosis Acute cough documented in this encounter [facility] note* Diagnosis URI with cough and congestion- Primary Flu-like symptoms Other general symptoms Wheezing documented in this encounter [facility] note* Diagnosis Acute right-sided low back pain with right-sided sciatica- Primary documented in this encounter [facility] note* Diagnosis Gender dysphoria- Primary Gender identity [...] thinning Alopecia, unspecified documented in this encounter [facility] Phone: Evaluation note* Diagnosis Chest pain, unspecified type- Primary documented in this encounter [facility] Summary Purpose Family History No Family History Records FoundNo Family History Records FoundNo Family History Records FoundNo Family History Records FoundNo Family History Records FoundNo Family History Records FoundNo Family History Records FoundNo Family History Records FoundNo Family History Records Found Advance Directives No Advanced Directives Records Found Advance Directive Response Recorded Date/ Time Living Will No February 08, 2023 4:12pm Power of Branch Mechanic No January 4:12pm Chief Complaint and Reason for Visit Chief Complaint S69.92XD Chief Complaint periods of uncontrol led shaking at HS Health Concerns Assessment Noted Time PHQ-9 Depression Total Score: 022 12:55 PM PDT Assessment Noted Time PHQ-9 Depression Total Score: 023 6:37 AM PDT Assessment Noted Time [...] section and content) DATE CREATED AUTHOR 08/08/2020 [facility] DATE CREATED AUTHOR AUTHOR'S ORGANIZ ATION 08/20/2020 [facility] DATE CREATED AUTHOR AUTHOR'S ORGANIZ ATION 05/02/2022 [facility] DATE CREATED AUTHOR AUTHOR'S ORGANIZ ATION 04/16/2024 [facility] DATE CREATED AUTHOR AUTHOR'S ORGANIZ ATION 09/12/2024 [facility] DATE CREATED AUTHOR AUTHOR'S ORGANIZ ATION 10/16/2024 [facility] DATE CREATED AUTHOR AUTHOR'S ORGANIZ ATION 10/18/2024 [facility] DATE CREATED AUTHOR AUTHOR'S ORGANIZ ATION 11/09/2024 [facility] DATE CREATED AUTHOR AUTHOR'S ORGANIZ ATION 12/29/2024 [facility] Care Teams (unrecognized sec tion and content) Team Status: Active Member Role Status Dates PANKAJ VIVEORS Family Provider Active No PCP Primary Care Provider Active Team Status: Inactive Member Role Status Dates No PCP Primary Care Provider Active Susie Rinaldi CNP Attending Provider Active Strike Out Machine Operator Relationship Specialty Start Date End Date Non-[employer], Provider PCP - General Commercial Truck Driver 08/01/21 Strike Out Machine Operator Relationship Specialty Start Date End Date Non-[employer], Provider PCP - General Commercial Truck Driver 08/01/21 Team Status: Active Member Role Status Dates BRENT CROCKER Primary Care Provider Active Team Status: Inactive Member Role Status Dates Dr. 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 Truck Driver 08/01/21 Strike Out Machine Operator Relationship Specialty Start Date End Date Brent Crocker [address] [place] [address] PCP - General Family Medicine, Physician 08/21/23 Strike Out Machine Operator Relationship Specialty Start Date End Date Brent Crocker MD [address] [place] [address] PCP - General Family Medicine 07/02/24 Strike Out Machine Operator Relationship Specialty Start Date End Date Brent Crocker MD [address] [facility] [place] [address] PCP - General Family Medicine 07/02/24 Strike Out Machine Operator Relationship Specialty Start Date End Date Brent Crocker MD [address] [facility] [place] [address] PCP - General Family Medicine 07/02/24 Strike Out Machine Operator Relationship Specialty Start Date End Date Brent Crocker MD [address] [place] [address] PCP - General Family Medicine 07/02/24 Strike Out Machine Operator Relationship Specialty Start Date End Date Brent Crocker MD [address] [place] [address] PCP - General Family Medicine 07/02/24 Strike Out Machine Operator Relationship Specialty Start Date End Date Brent Crocker [address] [place] [address] PCP - General Family Medicine, Physician 08/21/23 Strike Out Machine Operator Relationship Specialty Start Date End Date Keke Jackson MD [address] [place] [phone] PCP - General Internal Medicine 11/06/24 Goals (unrecognized section and content) Goals may [...] or prosecute any alcohol or drug abuse patient.[facility] Hospital[facility] the event this information is protected by the Federal Confidentiality of Alcohol and Drug Abuse Patient Records regulations: The Federal rules restrict any use of the information to criminally investigate or prosecute any alcohol or drug abuse patient.[facility] HospitalIn the event this information is protected by the Federal Confidentiality of Alcohol and Drug Abuse Patient Records regulations: The Federal rules restrict any use of the information to criminally investigate or prosecute any alcohol or drug abuse patient.[facility] HospitalIn the event this information is protected by the Federal Confidentiality of Alcohol and Drug Abuse Patient Records regulations: The Federal rules restrict any use of the information to criminally investigate or prosecute any alcohol or drug abuse patient.[facility] HospitalIn the event this information is protected by the Federal Confidentiality of Alcohol and Drug Abuse Patient Records regulations: The Federal rules restrict any use of the information to criminally investigate or prosecute any alcohol or drug abuse patient.[facility] HospitalIn the event this information is protected by the Federal Confidentiality of Alcohol and Drug Abuse Patient Records regulations: The Federal rules restrict any use of the information to criminally investigate or prosecute any alcohol or drug abuse patient.[facility] HospitalIn the event this information is protected by the Federal Confidentiality of Alcohol and Drug Abuse Patient Records regulations: The Federal rules restrict any use of the information to criminally investigate or prosecute any alcohol or drug abuse patient.[facility] HospitalIn the event this information is protected by the Federal Confidentiality of Alcohol and Drug Abuse Patient Records regulations: The Federal rules restrict any use of the information to criminally investigate or prosecute any alcohol or drug abuse patient.[facility] HospitalIn the event this information is protected by the Federal Confidentiality of Alcohol and Drug Abuse Patient Records regulations: The Federal rules restrict any use of the information to criminally investigate or prosecute any alcohol or drug abuse patient.[facility] FOR RECORDS PERTAINING TO PATIENTS WHO ARE [...] BE BASED ON THE PRIMARY CLINICAL RECORDS. [facility]. provides no warranty or guarantee of the accuracy or completeness of information in this document.
== END | disposition home or self-care (01) ==
LOC: CVS 10:15
PROVIDERS: PCP Internal Medicine; Referring Provider Physician Assistant; Visit Provider Physician Assistant
DX: R07.89 Other chest pain (principal)
CPT/HCPCS: 93017

== ENCOUNTER → 2025-01-12 | Outpatient (CLI) | payer OTHER, SELFPAY ==
[2025-01-12 13:41] LABS: AST(SGOT) 24 U/L (<=37); Alanine Aminotransfer ALT/SGPT 35 U/L (<=46); Albumin, Serum 4.2 g/dL (3.5-5.0); Alkaline Phosphatase 88 U/L (40-129); Anion Gap 13 (5-15); BUN 16 mg/dL (4-19); BUN/Creat Ratio 14.8 RATIO (10-20); Calcium,Total 9.0 mg/dL (7.6-11.0); Carbon Dioxide 21.2 mmol/L (21.0-32.0); Chloride 101 mmol/L (98-108); Globulin 2.9 g/dL (2.2-4.2); Glucose 104 mg/dL (70-99); Potassium 4.3 mmol/L (3.3-5.1)
== END | disposition home or self-care (01) ==
LOC: LAB 11:45
PROVIDERS: PCP Internal Medicine
DX: F64.9 Gender identity disorder, unspecified (principal)
CPT/HCPCS: 36415; 80053; 82670; 84403

== ENCOUNTER 2025-03-29 14:55 | Emergency (ER) | payer OTHER, SELFPAY ==
[2025-03-29 14:57] VITALS: BP 135/85; PULSE 70; RESP 18; TEMP 35.8; O2SAT 100; BMI 34.7
[2025-03-29 15:23] VITALS: BP 118/95; PULSE 65; RESP 16; TEMP 36.6; O2SAT 98
[2025-03-29 15:32] LABS: Mucous, Urine 0 SEEN /hpf (<or=2+); Squamous Epithelial Cells - UA 0 SEEN /hpf (0-5)
[2025-03-29 15:35] LABS: Glucose, Dipstick Normal (Normal); Ketone-Dipstick Negative (Negative); Leukocyte Esterase-Dipstick Negative /ul (Negative); Nitrite-Dipstick Negative (Negative); Occult Blood-Urine 25 /ul (Negative); Protein-Dipstick Negative (Negative); Specific Gravity, Urine 1.005 (1.002-1.030); Urine Bilirubin Dipstick Negative (Negative)
[2025-03-29] MEDS: Ketorolac 30 MG/ML Syringe 15 MG IM (15:35)
--- NOTE | 2025-03-29 15:47 | EX.ED.DYSGE1 ---
HPI History of Present Illness Chief Complaint: Flank Pain Narrative Narrative: Chief complaint and HPI: 49-year-old male with past medical history of fibromyalgia, OCD, anxiety/depression, GERD presents for evaluation of left lumbar back pain. Patient states for the past several days he has been having pain in his left lumbar back. States that it radiates into the buttocks as well as the left lower extremity at times. Patient states at baseline he has frequent urination. States that sometimes the back pain feels better with urination. He denies any history of urolithiasis. Denies any fever, chills, chest pain, abdominal pain, nausea, vomiting, diarrhea, constipation or dysuria. Denies numbness, weakness, urinary retention, stool or urinary incontinence, saddle anesthesia. Review of systems: See HPI Medications: As listed on the chart Allergies: As listed on the chart PFSH: Per chart Vital signs: As listed on the chart. Reviewed. Physical exam: Gen: A&O x3, NAD Head: Normocephalic, atraumatic Eyes: No sclera icterus, conjunctiva clear ENT: Moist mucous membranes CV: RRR, no murmurs Resp: Lungs CTA BL, no w/r/c GI: Abd soft, non-distended, non-tender, no r/r/g : No CVA tenderness Musc: Full ROM, no deformity, strength +5/5 in all extremities, no midline spinal tenderness, no bony step-offs, mild tenderness to palpation of the left lumbar paraspinal musculature-recreates his pain Skin: Warm, dry Neuro: Alert, oriented, grossly intact, sensation intact Psych: Cooperative, appropriate mood and affect [facility] Medical History Blood glucose elevated Encounter to establish care Preventative health care Fibromyalgia Gender dysphoria Vision problems GERD (gastroesophageal reflux disease) High cholesterol Hypertension Generalized headaches Emotional problems Asthma Home Medications ?Medication ?Instructions ?Recorded ?Last Taken ?Type finasteride 5 mg tablet 5 mg PO QDAY 06/04/24 Unknown History estradiol 2 mg tablet 6 mg PO QDAY 10/30/24 Unknown History buspirone 15 mg tablet 15 mg PO BID #180 tabs 11/04/24 Unknown Rx fluoxetine 40 mg capsule 80 mg (2 x 40 mg) PO QDAY #180 caps 11/04/24 Unknown Rx hydroxyzine HCl 25 mg tablet 25 mg PO QDAY #90 tabs 11/04/24 Unknown Rx prazosin 2 mg capsule 2 mg PO QHS #90 caps 11/04/24 Unknown Rx budesonide-formoterol HFA 160 2 puff inhalation BID #10.2 grams 12/09/24 Unknown Rx mcg-4.5 mcg/actuation aerosol inhaler (Symbicort) esomeprazole magnesium 40 mg 40 mg PO QAM #90 caps 12/16/24 Unknown Rx capsule,delayed release famotidine 20 mg tablet 20 mg PO DAILY #90 tabs 12/16/24 Unknown Rx spironolactone 50 mg tablet 100 mg PO QDAY 12/18/24 Unknown History clonazepam 0.5 mg tablet 0.5 mg PO QHS PRN anxiety #30 tabs 03/01/25 Unknown Rx metformin 500 mg tablet,extended 500 mg PO QDAY #30 tabs 03/19/25 Unknown Rx release 24 hr (Glucophage XR) Allergy/AdvReac Type Severity Reaction Status Date / Time latex Allergy Rash Verified 03/29/25 14:57 levofloxacin (From Levaquin) Allergy Shortness Verified 03/29/25 14:57 of breath Family History Other Alcoholism Anxiety Arthritis Breast cancer Colon cancer Depression Diabetes Hypertension Mental disorder Psychiatric care Suicide attempt Surgical History H/O endoscopy History of liver biopsy History of cystoscopy History of colonoscopy Social History household members: none Smoking Status: Never smoker alcohol intake: never substance use type: does not use EXAM Physical Exam Const Vital Signs: 03/29/25 14:57 03/29/25 15:23 03/29/25 16:23 Temperature 96.5 F L 98 F 98 F Temperature Source Temporal Oral Pulse Rate 70 65 65 Respiratory Rate 18 16 16 Blood Pressure 135/85 H 118/95 H 118/95 H Blood Pressure Mean 101 102 102 Pulse Ox 100 98 98 Oxygen Delivery Method Room Air Room Air MDM MDM MDM Narrative Medical decision making narrative: 49-year-old male with past medical history of fibromyalgia, OCD, anxiety/depression, GERD presents for evaluation of left lumbar back pain. Patient states for the past several days he has been having pain in his left lumbar back. States that it radiates into the buttocks as well as the left lower extremity at times. Patient states at baseline he has frequent urination. States that sometimes the back pain feels better with urination. There has been no trauma. Differential diagnosis includes but is not limited to myofascial spasm, sciatica suspect less likely UTI or urolithiasis. However given patient states that he has baseline urinary frequency we will perform UA. I do not think any imaging is needed at this time such as x-rays or MRI. Will treat with Toradol and muscle relaxer. UA ordered. Patient's pain has improved with medication. He does have some blood in his urine however no UTI. I have very low suspicion for urolithiasis. Patient was updated on his results with the blood in his urine. I did explain to him without CT abdomen pelvis it cannot rule out urolithiasis although this is low on my differential given that patient is describing more of a musculoskeletal pain. Since his pain is improved he would like to hold off on any further imaging or labs. States that he will follow-up with his doctor. Return precautions explained. I do think this is appropriate. He will be written for muscle relaxers. IcyHot and heating pad as needed. Patient stable to discharge home. Impression: 1. Left lumbar back pain 2. Microscopic hematuria Lab Data Labs: Laboratory Results - last 24 hr 03/29/25 15:13 Urine Color Yellow Urine Clarity Clear Urine pH 7.0 Ur Specific [place] 1.005 Urine Protein Negative Urine Glucose (UA) Normal Urine Ketones Negative Urine Occult Blood 25 H Urine Nitrite Negative Urine Bilirubin Negative Urine Urobilinogen Normal Ur Leukocyte Esterase Negative Urine RBC 0-5 SEEN Urine WBC 0 SEEN Ur Squamous Epith Cells 0 SEEN Urine Bacteria 0 SEEN Urine Mucus 0 SEEN Discharge Plan Triage Chief Complaint: Flank Pain ED Provider: Salty Adair Dx/Rx/DC Orders Prescriptions: No Action spironolactone 50 mg tablet 100 mg PO QDAY estradiol 2 mg tablet 6 mg PO QDAY Rx Instructions: 4 mg in am and 2mg at night finasteride 5 mg tablet 5 mg PO QDAY buspirone 15 mg tablet 15 mg PO BID Qty: 180 1RF fluoxetine 40 mg capsule 80 mg PO QDAY Qty: 180 1RF hydroxyzine HCl 25 mg tablet 25 mg PO QDAY Qty: 90 3RF prazosin 2 mg capsule 2 mg PO QHS Qty: 90 1RF budesonide-formoterol [Symbicort] 160-4.5 mcg/actuation HFA aerosol inhaler 2 puff inhalation BID Qty: 10.2 2RF Rx Instructions: rinse mouth after each use clonazepam 0.5 mg tablet 0.5 mg PO QHS PRN (Reason: anxiety) Qty: 30 2RF metformin [Glucophage XR] 500 mg tablet extended release 24 hr 500 mg PO QDAY Qty: 30 5RF famotidine 20 mg tablet 20 mg PO DAILY Qty: 90 1RF esomeprazole magnesium 40 mg capsule,delayed release(DR/EC) 40 mg PO QAM Qty: 90 1RF Primary Care Provider: Arleth Jackson Referrals: Arleth Jackson MD [Primary Care Provider, Internal Medicine] Print Language: Liberian
[2025-03-29 16:02] LABS: Color, Urine Yellow (Yellow)
[2025-03-29 16:03] LABS: Red Blood Cells-Urine 0-5 SEEN /hpf (0-5)
[2025-03-29 16:23] VITALS: BP 118/95; PULSE 65; RESP 16; TEMP 36.6; O2SAT 98
== END 2025-03-29 16:44 | disposition home or self-care (01) ==
PROVIDERS: Emergency Provider Surgery; PCP Internal Medicine; Visit Provider Surgery
DX: M54.50 Low back pain, unspecified (principal); R31.29 Other microscopic hematuria
CPT/HCPCS: 81001; 96372; 99282; A4216

== ENCOUNTER → 2025-04-03 | Outpatient (CLI) | payer OTHER, SELFPAY ==
--- NOTE | 2025-04-03 11:25 | RAD_ITS ---
PROCEDURE: LUMBAR SPINE 2 OR 3 VIEWS 04/03/2025 REASON FOR EXAM: PAIN TECHNIQUE: Procedure Code: RADSPLL Modality: DX Procedure: LUMBAR SPINE 2 OR 3 VIEWS COMPARISON: None FINDINGS: Vertebrae: Two views of the lumbosacral spine were obtained. There are no sacral fractures. SI joints are unremarkable. There are 5 lumbar-type vertebral bodies below the last set of paired ribs. The vertebral body heights are within normal limits. There is no spondylolysis. There is a subtle levoscoliosis of the lumbar spine. There is no spondylosis. Discs: Disc spaces are well-maintained. Alignment: There is no spondylolisthesis. Other: Paravertebral soft tissue structures are unremarkable. RAD/Lumbar Spine 2 or 3 Views IMPRESSION: Subtle levoscoliosis of the lumbar spine. Reading Location: [id number]
--- NOTE | 2025-04-03 11:25 | RAD_ITS ---
PROCEDURE: HIP, UNI W/ PELVIS 2-3 VIEWS 04/03/2025 REASON FOR EXAM: PAIN TECHNIQUE: Procedure Code: [facility] Modality: DX Procedure: HIP, UNI W/ PELVIS 2-3 VIEWS Laterality: Right COMPARISON: None FINDINGS: Bones: There is normal mineralization of the osseous structures of the bony pelvis and right hip. There are no fractures or dislocations. Joints: Mild degenerative osteoarthritic changes are noted involving the right hip. Mild degenerative osteoarthritic changes are noted involving the left hip. SI joints are well preserved. Pubic symphysis is unremarkable. Soft tissues: Marked soft tissues are grossly unremarkable. Other: Phleboliths are seen in the pelvis. RAD/HIP, UNI W/ Pelvis 2-3 Views IMPRESSION: Mild degenerative osteoarthritic changes are noted involving the right hip. Mild degenerative osteoarthritic changes are noted involving the left hip. Reading Location: [id number]
--- OUTSIDE RECORDS SUMMARY | 2025-04-03 11:29 | XMS RPT_ITS | CCD ---
Author Organization [facility] Care Team Providers Care Change Management Coordinator Name Role Phone PCP, No Primary Care Provider UnavailLULU Mercado Attending Provider [phone] PCP, No Primary Care Unavailable Susie Rinaldi Attending Unavailable Non-[facility], Provider Primary Care Provider Unav ailable Non-[facility], Provider Primary Care Provider Unav ailable Brent Crocker Primary Care Provider Unavailable Primary Care Provider UnavailOPAL Layton Referring Unavailab Brent Lepe MD Primary Care Provider TIANNA SALCIDO Attending Unavailable BRENT CROCKER Primary [...] Primary Care Unavailable BRENT CROCKER Attending Unavailable Keke Jackson MD Primary Care Provider [phone] OPAL KENNY Admitting Unavailable OPAL KENNY Attending Unavailable OPAL KENNY Consulting Unavailable BRENT CROCKER Primary Care Unavailable PANKAJ CALDERON Referring Unavailable PANKAJ CALDERON Attending Unavailable BRENT CROCKER Primary Care Unavailable OLEGHE, EFEWONGBE B Primary Care Unavailable OLEGHE, EFEWONGBE B Primary Care Unavailable HOLDEN ROGERS Attending Unavailable MYESHA ORTIZ Referring Unavailable LIZZETTE, EDWARD R Primary Care Unavailable HOLDEN ROGERS Referring Unavailable LIZZETTE, EDWARD R Primary Care Unavailable LIZZETTE, EDWARD R Primary Care Unavailable LIZZETTE, EDWARD R Primary Care Unavailable OLEGHE, EFEWONGBE B Primary Care Unavailable BUDDY TEMPLE Attending Unavailable Aspen Montgomery Attending Unavailable ACE, [facility] Primary Care Unavail able Oleghe, Efewongbe Primary Care Unavailable Kobe Montgomeryon Attending Unavailable Oleghe, Efewongbe Primary Care Unavailable Layo Torres Attending Unavailable Oleghe, Efewongbe Referring Unavailable MontgomeryKobeon Attending Unavailable Oleghe, Efewongbe Primary Care Unavailable Oleghe, Efewongbe Primary Care Unavailable Layo Torres Referring Unavailable Layo Torres Attending Unavailable Oleghe, Efewongbe Attending Unavailable Oleghe, Efewongbe Primary Care Unavailable Oleghe, Efewongbe Referring Unavailable Oleghe, Efewongbe Primary Care Unavailable Layo Torres Referring Unavailable Layo Torres Attending Unavailable [facility], [facility] Referring Unavail able ACE, [facility] Attending Unavail able Oleghe, Efewongbe Primary Care Unavailable Oleghe, Efewongbe Primary Care Unavailable Layo Torres Referring Unavailable Layo Torres Attending Unavailable [facility], [facility] Primary Care Unavail able Nash Geller Attending Unavailable Aranza Patterson Attending Unavailable Oleghe, Efewongbe Primary Care Unavailable Oleghe, Efewongbe Referring Unavailable Oleghe, Efewongbe Referring Unavailable Oleghe, Efewongbe Primary Care Unavailable Layo Torres Attending Unavailable Oleghe, Efewongbe Primary Care Unavailable Aspen Montgomery Attending Unavailable Oleghe, Efewongbe Primary Care Unavailable WayLayo Waller Consulting Unavailable Wayt CARMENZA, Layo Referring Unavailable Bryce Quinonez Attending Unavailable Aspen Montgomery Attending Unavailable Oleghe, Efewongbe Attending Unavailable Oleghe, Efewongbe Primary Care Unavailable Aspen Montgomery Attending Unavailable Oleghe, Efewongbe Primary Care Unavailable Layo oTrres Attending Unavailable Oleghe, Efewongbe Referring Unavailable Oleghe, Efewongbe Primary Care Unavailable Aspen Montgomery Attending Unavailable Care Physician, No Primary Primary Care Unava ilable sApen Montgomery Attending Unavailable Salty Adair Attending Unavailabl e Oleghe, Efewongbe Primary Care Unavailable Rakesh Broderick Attending Unavailable Oleghe, Efewongbe Primary Care Unavailable Oleghe, Efewongbe Primary Care Unavailable Layo Torres Referring Unavailable Layo Torres Attending Unavailable Care Physician, No Primary Primary Care Unava ilable Aspen Montgomery Attending Unavailable Allergies Allergy Classification Reported Allergen(s) Allergy Type Date of Onset Reaction(s) Facility (1 source) LEVOQUIN; Translations: [LEVOQUIN] Propensity to adverse reactions (disorder) 12-11-19 13 [facility] Repository (8 sources) FLUoxetine; Translations: [FLUOXETINE] Drug Allergy 08-16-19 17 Other: See Comments [facility] Phone: (17 sources) fluvoxaMINE; Translations: [FLUVOXAMINE] Drug Allergy 12-07-19 16 Other: See Comments [facility] Phone: (20 sources) Latex; Translations: [LATEX, NATURAL RUBBER] Propensity to adverse reactions to drug 08-14-19 17 Rash [facility] Phone: (20 sources) levoFLOXacin; Translations: [LEVOFLOXACIN] Drug Allergy 01-22-20 14 Anxiety, Mental Status Change, Other: See Comments [facility] Phone: (17 sources) NITROFURANTOIN, MACROCRYSTALS / Nitrofurantoin, Monohydrate; Translations: [NITROFURANTOIN MONOHYD/M-CRYST] Drug Allergy 08-21-19 17 Other: See Comments [facility] Phone: (4 sources) Desvenlafaxine Drug Allergy 01-03-20 16 [facility] Phone: (1 source) Latex Allergy to substance 02-09-20 23 Rash [facility] (1 source) Latex Drug allergy (disorder) 03-31-20 [facility] Repository (1 source) levoFLOXacin Drug Allergy 03-31-20 [facility] Repository Medications Current Medications Medication Drug Class(es) Dates Sig (Normalized) Sig (Original) [id number] actuat albuterol 0.09 mg/actuat metered dose [...] above: Take 1 Tablet by minerva th 2 (two) times daily Take 4mg in the AM a nd 2mg in the PM by mouth daily TAKE 2 TABLETS BY MO UTH EVERY MORNING AND TAKE 1 TABLET BY MOUTH EVERY EVENING Take 2 Tablets by mo uth every morning AND 1 Tablet every evening. famotidine 20 mg oral tablet (13 sources) Histamine-2 Receptor Antagonist Start: famotidine (PEPCID) 20 mg tablet Take 20 mg by mouth. 06/14/2023 Active finasteride 5 mg oral tablet (13 sources) 5-alpha Reductase Inhibitor Start: take 1 [...] on above: Take 1 Capsule by mo [facility] once daily esomeprazole 40 mg [...] Discontinued Start: 01-30-2019 [facility] L-Methylfolate 15 mg tab Take [...] 40 mg by mouth polyethylene glycol [id number] mg powder for oral solution (5 sources) [...] with panic disorder] Onset: 12-19-2012 01-20-2020 Chronic Essential hypertension (1 source) Essential (primary) hypertension; Translations: [Essential (primary) hypertension] Onset: 12-24-2024 Chronic Genitourinary symptoms and ill-defined conditions (3 sources) Frequency of micturition; Translations: [Other microscopic hematuria] Onset: 10-13-2024 Episodic Headache; including migraine (2 sources) Headache; including migraine; Translations: [Headache, unspecified] Onset: 06-15-2024 Miscellaneous mental health disorders (11 sources) Gender dysphoria; Translations: [Gender identity disorder, unspecified] Onset: 06-20-2021 08-22-2022 Chronic Mood disorders (5 sources) Major depressive disorder; Translations: [Major depressive disorder, single episode, unspecified] Onset: 08-12-2010 01-20-2020 Chronic Nonmalignant breast conditions (1 source) Unspecified lump in the left breast, unspecified quadrant; Translations: [Unspecified lump in the left breast, unspecified quadrant] Onset: 03-19-2025 Episodic Nonspecific chest pain (4 sources) Chest pain; Translations: [Chest pain, unspecified] Onset: 11-06-2024 11-06-2024 Episodic Other aftercare (1 source) Drug therapy finding; Translations: [senior living (current) use of other agents affecting estrogen [...] source) Wheezing; Translations: [Wheezing] 07-04-2024 Episodic Other lower respiratory disease (1 source) Shortness of breath; Translations: [SOB (shortness of breath)] Onset: 03-29-2025 Episodic Other nervous system disorders (1 source) [...] [Other general symptoms and signs] 07-04-2024 Episodic Spondylosis; intervertebral disc disorders; other back problems (5 sources) Acute back pain with sciatica; Translations: [Lumbago with sciatica, right side] Onset: 07-10-2024 07-09-2024 Episodic Unclassified (1 source) Acute cough; Translations: [Acute cough] Onset: 07-02-2024 Past or Other Problems Problem Classification Problem Date Documented Date Episodic/Chronic Administrative/social admission (1 source) Patient encounter status; Translations: [Other specified counseling] Onset: 02-20-2024 02-20-2024 Episodic Conditions associated with dizziness or vertigo (1 source) Dizziness and giddiness; Translations: [Dizziness and giddiness] Onset: 12-18-2024 Episodic Fever of unknown origin (2 sources) [...] general symptoms and signs] Onset: 06-15-2024 Episodic Syncope (3 sources) Syncope and collapse; Translations: [Syncope and collapse] Onset: 05-02-2023 Episodic Results Test Name Value Interpretation Reference Range Facility Internal Medicine Office Vis iton 03-31-2025 Internal Medicine Office Visit [facility] Internal Medicine [address] [place] [address] OFFICE VISIT Date of Service: 03/31/25 MR#: [id number] Acct: [id number] Name: HENRY CARRENOREUBEN FERNANDEZO Rep #: [id number] : 1975 Provider: CARMENZA Manzano Age/Sex: 49/M Location: [facility] Status: Signed Intake Vital Signs 03/19/25 09:40 03/29/25 14:57 03/31/25 08:42 Height 5 ft 6 in 5 ft 6 in 5 ft 6 in Weight: 214 lb BMI 34.5 BP 118/72 Blood Pressure Location Lt brachial Position Sitting Respiration 16 Pulse 77 Pulse Source Monitor Temp 97.1 F L Temp Source Temporal Pulse Oximetry (%) 98 Oxygen Delivery Method room air Intake Visit Reasons: lower back pain. Body aches Chief Complaint: back pain Wine Steward/Stewardess Required: No Accompanied by: Self Is patient in pain?: Yes (right side lower back ) Pain scale (1-10): 4 Allergies latex Allergy (Verified 03/31/25 08:36) Rash levofloxacin (From Levaquin) Allergy (Verified 03/31/25 08:36) Shortness of breath Medications ???Medication ???Instructions ???Recorded ???Confirmed ???Type finasteride 5 mg tablet 5 mg PO QDAY 06/04/24 03/31/25 His tory estradiol 2 mg tablet 6 mg PO QDAY 10/30/24 03/31/25 His tory buspirone 15 mg tablet 15 mg PO BID #180 tabs 11/04/24 Rx fluoxetine 40 mg capsule 80 mg (2 x 40 mg) PO QDAY #180 cap s 11/04/24 03/31/25 Rx hydroxyzine HCl 25 mg tablet 25 mg PO QDAY #90 tabs 11/04/24 Rx prazosin 2 mg capsule 2 mg PO QHS #90 caps 11/04/2403/20 Rx budesonide-formoterol HFA 160 2 puff inhalation BID #10.2 grams 12/09/24 03/31/25 Rx mcg-4.5 mcg/actuation aerosol inhaler (Symbicort) esomeprazole magnesium 40 mg 40 mg PO QAM #90 caps 12/16/2405/13 Rx capsule,delayed release famotidine 20 mg tablet 20 mg PO DAILY #90 tabs 12/16/24 1 05/31/24 Rx spironolactone 50 mg tablet 100 mg PO QDAY 12/18/24 03/31/25 H istory clonazepam 0.5 mg tablet 0.5 mg PO QHS PRN anxiety #30 tabs 03/01/25 03/31/25 Rx metformin 500 mg tablet,extended 500 mg PO QDAY #30 tabs 03/19/25 1 05/31/24 Rx release 24 hr (Glucophage XR) cyclobenzaprine 5 mg tablet 5 mg PO TID PRN muscle spasm 3 03/1303/31/25 Rx days #9 tabs prednisone 20 mg tablet 20 mg PO BID #12 tabs 04/01/25 Rx Nurse's Note: lower right sided back pain sometimes goes down back of leg all the way to foot [facility] Medical History Blood glucose elevated Encounter to [...] does not use HPI HPI Chief Complaint: back pain Details: REUBEN CARRENO, is a 49 M who presents to the office today for f/u on low back pain. He states that the pains started over the weekend while he was at work (no injury and states that he was doing nothing different than normal) and the pains worsened Saturday. Patient was in the ED on Saturday late afternoon due to the pain. He states that he feels like the back has been on and off for easily a month now. Pain is located on the lower back on the right side (initially I had been saying left as that is what the ED notes said. It was only after having him point to where he has the pains that it appeared on the right side.) Sometimes he feels like it is the hip. He has had some radiating pain down the leg into the foot. He states that he felt a little weakness in the leg at times and states that one day (he thinks Saturday) that he had some tingling feeling in the lower leg / feet. He denies any other current symptoms. He denies changes in his bowels / bladder. He denies gross motor weakness today. ROS Const Constitutional: No body ache, excessive sweating, fatigue, fever(s), frequent falls, headache(s), snoring, weakness, weight change, sleep problems or change in appetite Eyes Eyes: No blurry vision, change in vision, eye pain or Light sensitivity ENT ENT: No abnormal hearing, ear or mastoid pain, tinnitus, nasal congestion, headache(s), neck pain or sore throat Resp Respirato (more content not included)... Normal [facility] Bacteria Ur Culton Bacteria identified Cx Nom (U) ORGANISM ID: 1 <10,000 CFU/ml Normal urogenital denise Normal [facility] Comment on above: Performed By: #### 6 30-4 ####[facility] LABCLIA [id number] [address] [place] CNOVon 03-29-2025 CNOV Office Visit ([facility]) REUBEN SAPP ([id number]) 1975 M Date Time Provider Department 03/29/25 1:30 PM HOLDEN ROGERS WOEZE During your visit today, we recorded the following information about you: Temperature Pulse Respiration Blood pressure 98 degrees 70/minute 16/minute 122/78 Weight 98 kg Holden Rogers MD 03/29/2025 2:14 PM Signed [facility] Subjective Reuben Carreno is a 49 year old male. Patient presents with: Low Back Pain: right side with bodyaches x 2 days Back pain: Duration: initially had all over the body aches 2 days ago, yesterday localized to the right lower back Location: right lower back Character: aching and sharp Radiation: down the right leg to the foot Aggravating: bending Relieving: resting, may have improved with voiding bladder or moving bowels Pain relievers: Motrin Associated: Urinary frequency, right leg weakness, tingling in the bottom of the right foot, intermittent episodes of feeling like he cannot breathe (suspects anxiety) Pertinent negatives: Denies incontinence, fever He has a history of hematuria at baseline, history of overactive bladder versus interstitial cystitis, and history of sciatica. Denies history of kidney stones. No family history of kidney stones. The history is provided by the patient. Review of Systems Constitutional: Positive for fatigue. Negative for fever. HENT: Negative for congestion and sore throat. Respiratory: Positive for shortness of breath. Cardiovascular: Negative for chest pain. Gastrointestinal: Negative for abdominal pain, blood in stool, constipation, diarrhea, nausea and vomiting. Bowel movements have been formed but in smaller pieces than normal Genitourinary: Positive for frequency and hematuria (No visible blood). Negative for dysuria. Musculoskeletal: Positive for arthralgias, back pain and myalgias. Neurological: Positive for weakness and numbness. Negative for dizziness, light-headedness and headaches. Objective BP 122/78 Pulse 70 Temp 36.7 ?C (98 ?F) Resp 16 Wt 98 kg (216 lb 0.8 oz) SpO2 97% BMI 33.95 kg/m? Physical Exam Constitutional: Appearance: He is diaphoretic. HENT: Nose: No congestion. Mouth/Throat: Mouth: Mucous membranes are moist. Pharynx: No oropharyngeal exudate or posterior oropharyngeal erythema. Eyes: Extraocular Movements: Extraocular movements intact. Conjunctiva/sclera: Conjunctivae normal. Pupils: Pupils are equal, round, and reactive to light. Cardiovascular: Rate and Rhythm: Normal rate and regular rhythm. Heart sounds: No murmur heard. Pulmonary: Effort: No respiratory distress. Breath sounds: No wheezing, rhonchi or rales. Abdominal: General: There is no distension. Palpations: Abdomen is soft. There is no mass. Tenderness: There is no abdominal tenderness. Musculoskeletal: Cervical back: Neck supple. Lumbar back: Tenderness (Right greater than left lumbar paraspinal discomfort with palpation) present. No bony tenderness. Normal range of motion. Positive right straight leg raise test. Lymphadenopathy: Cervical: No cervical adenopathy. Neurological: Mental Status: He is alert and oriented to person, place, and time. Cranial Nerves: No cranial nerve deficit. Gait: Gait normal. Deep Tendon Reflexes: Reflexes normal. Reflex Scores: Patellar reflexes are 2+ on the right side and 2+ on the left side. Achilles reflexes are 1+ on the right side and 1+ on the left side. Psychiatric: Mood and Affect: Mood is anxious. Speech: Speech normal. Behavior: Behavior normal. Cognition and Memory: Cognition is not impaired. Memory is not impaired. {ASSESSMENT/PLAN: 1. Acute right-sided back pain with sciatica - ICD9: 724.3, ICD10: M54.41 (primary diagnosis) 2. Myalgias - ICD9: 729.1, ICD10: M79.10 3. Microscopic hematuria - ICD9: 599.72, ICD10: R31.29 4. SOB (shortness of breath) - ICD9: 786.05, ICD10: R06.02 - UA DIP, URINE (POC) - moderate blood. No LE, nitrite, or protein. - BACTERIAL CULTURE, URINE Right lumbar radicular pain with typical distribution. Red flags include generalized myalgia/arthralgia, shortness of breath, weakness. I recommended lab and imaging may be indicated to rule out renal calculus, pyelonephritis, appendicitis, discitis, aortic aneurysm. He will go to [facility] ED for further evaluation. Holden Rogers MD History and Record Review External record(s) reviewed: prior labs/imaging. Findings from review of prior labs/imaging: No renal calculi on CT scans 2019 and 2022 Differential Diagnoses - Right low back pain with sciatica - Renal calculi - Pyelonephritis - Appendicitis/diverticu litis - Abdominal aortic aneurysm Disposition The patient was transferred to ED (private vehicle, report called to [facility] ED). Procedures Allergies As of Date: (more content not included)... Normal [facility] Emergency Department Summary on 03-29-2025 Emergency Department Summary [facility] Medical Records Department [address] [place] [address] Emergency Department Summary 03/29/25 MR#: [id number] Acct: [id number] Name: REUBEN SAPP Rep #: [id number] : 1975 49 From: Salty Adair DO PCP: Dr. Keke Jackson MD Status:REG ER Location: ED HPI History of Present Illness Chief Complaint: Flank Pain Narrative Narrative: Chief complaint and HPI: 49-year-old male with past medical history of fibromyalgia, OCD, anxiety/depression, GERD presents for evaluation of left lumbar back pain. Patient states for the past several days he has been having pain in his left lumbar back. States that it radiates into the buttocks as well as the left lower extremity at times. Patient states at baseline he has frequent urination. States that sometimes the back pain feels better with urination. He denies any history of urolithiasis. Denies any fever, chills, chest pain, abdominal pain, nausea, vomiting, diarrhea, constipation or dysuria. Denies numbness, weakness, urinary retention, stool or urinary incontinence, saddle anesthesia. Review of systems: See HPI Medications: As listed on the chart Allergies: As listed on the chart PFSH: Per chart Vital signs: As listed on the chart. Reviewed. Physical exam: Gen: A O x3, NAD Head: Normocephalic, atraumatic Eyes: No sclera icterus, conjunctiva clear ENT: Moist mucous membranes CV: RRR, no murmurs Resp: Lungs CTA BL, no w/r/c GI: Abd soft, non-distended, non-tender, no r/r/g : No CVA tenderness Musc: Full ROM, no deformity, strength +5/5 in all extremities, no midline spinal tenderness, no bony step-offs, mild tenderness to palpation of the left lumbar paraspinal musculature-recreates his pain Skin: Warm, dry Neuro: Alert, oriented, grossly intact, sensation intact Psych: Cooperative, appropriate mood and affect [facility] Medical History Blood glucose elevated Encounter to establish care Preventative health care Fibromyalgia Gender dysphoria Vision problems GERD (gastroesophageal reflux disease) High cholesterol Hypertension Generalized headaches Emotional problems Asthma Home Medications ???Medication ???Instructions ???Recorded ???Last Taken ???Type finasteride 5 mg tablet 5 mg PO QDAY 06/04/24 Unknown Hist ory estradiol 2 mg tablet 6 mg PO QDAY 10/30/24 Unknown Hist ory buspirone 15 mg tablet 15 mg PO BID #180 tabs 11/04/24 Un known Rx fluoxetine 40 mg capsule 80 mg (2 x 40 mg) PO QDAY #180 cap s 11/04/24 Unknown Rx hydroxyzine HCl 25 mg tablet 25 mg PO QDAY #90 tabs 11/04/24 Un known Rx prazosin 2 mg capsule 2 mg PO QHS #90 caps 11/04/24 Unkn own Rx budesonide-formoterol HFA 160 2 puff inhalation BID #10.2 grams 12/09/24 Unknown Rx mcg-4.5 mcg/actuation aerosol inhaler (Symbicort) esomeprazole magnesium 40 mg 40 mg PO QAM #90 caps 12/16/24 Unk nown Rx capsule,delayed release famotidine 20 mg tablet 20 mg PO DAILY #90 tabs 12/16/24 U nknown Rx spironolactone 50 mg tablet 100 mg PO QDAY 12/18/24 Unknown Hi story clonazepam 0.5 mg tablet 0.5 mg PO QHS PRN anxiety #30 tabs 03/01/25 Unknown Rx metformin 500 mg tablet,extended 500 mg PO QDAY #30 tabs 03/19/25 U nknown Rx release 24 hr (Glucophage XR) Allergy/AdvReac Type Severity Reaction Status Date / Time latex Allergy Rash Verified 03/29/25 14:57 levofloxacin (From Levaquin) Allergy Shortness Verified 03/29/25 14:57 of breath Family History Other Alcoholism Anxiety Arthritis Breast cancer Colon cancer Depression Diabetes Hypertension Mental disorder Psychiatric care Suicide attempt Surgical History H/O endoscopy History of liver biopsy History of cystoscopy History of colonoscopy Social History household members: none Smoking Status: Never smoker alcohol intake: never substance use type: does not use EXAM Physical Exam Const Vital Signs: 03/29/25 14:57 03/29/25 15:23 03/29/25 16:23 Temperature 96.5 F L 98 F 98 F Temperature Source Temporal Oral Pulse Rate 70 65 65 Respiratory Rate 18 16 16 Blood Pressure 135/85 H 118/95 H 118/95 H Blood Pressure Mean 101 102 102 Pulse Ox 100 98 98 Oxygen Delivery Method Room Air Room Air MDM MDM MDM Narrative Medical decision making narrative: 49-year-old male with past medical history of fibromyalgia, OCD, anxiety/depression, GERD presents for evaluation of left lumbar back pain. Patient states for the past several days he has been having pain in his left lumbar back. States that it radiates into (more content not included)... Normal [facility] Urinalysis, Completeon 03-29 RBC 0-5 SEEN Normal 0-5 [facility] Comment on above: Order Comment: CLEAN CATCH Performed By: #### L [id number] ####[facility] [address] [place], [place], [id number] BACTERIA 0 SEEN Normal None Seen [facility] Comment on above: Order Comment: CLEAN CATCH Performed By: #### L [id number] ####[facility] [address] [place], [address] EPI,SQUAMOUS 0 SEEN Normal 0-5 [facility] Comment on above: Order Comment: CLEAN CATCH Performed By: #### L [id number] ####[facility] [address] [place], [address] Mucus Ql (Urine sed) 0 SEEN Normal [facility] Comment on above: Order Comment: CLEAN CATCH Performed By: #### L [id number] ####[facility] [address] [place], [address] WBC 0 SEEN Normal 0-5 [facility] Comment on above: Order Comment: CLEAN CATCH Performed By: #### L [id number] ####[facility] [address] [place], [address] Internal Medicine Office Vis iton 03-19-2025 Internal Medicine Office Visit [facility] Internal Medicine [address] [place] [address] OFFICE VISIT Date of Service: 03/19/25 MR#: [id number] Acct: [id number] Name: REUBEN SAPP Rep #: [id number] : 1975 Provider: KRISTIAN palafox Age/Sex: 49/M Location: [facility] Status: Signed Intake Vital Signs 03/01/25 08:33 03/19/25 09:40 Height 5 ft 6 in 5 ft 6 in Weight: 214 lb 213 lb BMI 34.5 34.3 BP 116/82 H 112/62 Blood Pressure Location Lt brachial Position Sitting Respiration 18 Pulse 74 89 Pulse Source Monitor Temp 98.1 F Temp Source Temporal Pulse Oximetry (%) 98 Oxygen Delivery Method room air Intake Visit Reasons: LUMP ON RIGHT BREAST Chief Complaint: LUMP ON left BREAST Is patient in pain?: No Allergies latex Allergy (Verified 03/19/25 09:40) Rash levofloxacin (From Levaquin) Allergy (Verified 03/19/25 09:40) Shortness of breath Medications ???Medication ???Instructions ???Recorded ???Confirmed ???Type finasteride 5 mg tablet 5 mg PO QDAY 06/04/24 03/19/25 His tory estradiol 2 mg tablet 6 mg PO QDAY 10/30/24 03/19/25 His tory buspirone 15 mg tablet 15 mg PO BID #180 tabs 11/04/24 Rx fluoxetine 40 mg capsule 80 mg (2 x 40 mg) PO QDAY #180 cap s 11/04/24 03/19/25 Rx hydroxyzine HCl 25 mg tablet 25 mg PO QDAY #90 tabs 11/04/24 Rx prazosin 2 mg capsule 2 mg PO QHS #90 caps 11/04/2402/19 Rx budesonide-formoterol HFA 160 2 puff inhalation BID #10.2 grams 12/09/24 03/19/25 Rx mcg-4.5 mcg/actuation aerosol inhaler (Symbicort) esomeprazole magnesium 40 mg 40 mg PO QAM #90 caps 12/16/24 Rx capsule,delayed release famotidine 20 mg tablet 20 mg PO DAILY #90 tabs 12/16/24 1 Rx spironolactone 50 mg tablet 100 mg PO QDAY 12/18/24 03/19/25 H istory clonazepam 0.5 mg tablet 0.5 mg PO QHS PRN anxiety #30 tabs 03/01/25 03/19/25 Rx metformin 500 mg tablet,extended 500 mg PO QDAY #30 tabs 03/19/25 1 Rx release 24 hr (Glucophage XR) Have you fallen in the past year?: No [facility] Medical History Blood glucose elevated Encounter to [...] does not use HPI HPI Chief Complaint: LUMP ON left BREAST Details: REUBEN CARRENO, is a 49 M who presents to the office today for evaluation for concern of lump on left breast. Patient states that a week ago he noticed a lump in his left breast. He does have a family history of breast cancer he states his mom and his aunts have had breast cancer. He did have a mammogram earlier this year at an outside facility at [facility]. He states there were no concerns at that time. He does have a history of discharge from the left nipple. He states he did have some hormones evaluated they thought it could be his pituitary gland however he states there was never any conclusive information that he was made aware of regarding this. He has been on estrogen for approximately 4 years. He states that the area feels firm it is not tender he has not recently noticed any drainage from the nipple or any change in the skin over top of the breast. He is also concerned about his history of prediabetes his last A1c was 6.1. No other questions or concerns at this time ROS Const Constitutional: No body ache, chills, excessive sweating, fatigue, fever(s), frequent falls, headache(s), snoring, weight change, sleep problems, abnormal sleep pattern or change in appetite Eyes Eyes: No blurry vision, change in vision, eye pain or Light sensitivity ENT ENT: No abnormal hearing, ear or mastoid pain, tinnitus, nasal congestion, headache(s), neck pain or sore throat Resp Respiratory: No cough, shortness of breath, snoring or wheezing Cardio Cardiology: No chest pain at rest, chest pain with exertion, excessive sweating, shortness of breath, dyspnea on exertion, lightheadedness, orthopnea or palpitations Gastro GI: No abdominal pain, change in bowel habits, const (more content not included)... Normal [facility] MR/BMS.on 03-01-2025 MR/BMS.BP [place] [id number] [facility], [address] [place] [address] OFFICE VISIT Date of Service: 03/01/25 MR#: [id number] Acct: [id number] Name: REUBEN SAPP Rep #: [id number] : 1975 Provider: KRISTIAN monroe Age/Sex: 49/M Location: [facility] [place] Status: Signed Intake Vital Signs 01/15/25 09:03 03/01/25 08:33 Height 5 ft 6 in 5 ft 6 in Weight: 209 lb 4 oz 214 lb BMI 33.7 34.5 BP 123/76 H 116/82 H Blood Pressure Location Lt brachial Position Sitting Respiration 16 Pulse 71 74 Pulse Source Monitor BP Intake Visit Reasons: Follow up Allergies latex Allergy (Verified 01/15/25 09:05) Rash levofloxacin (From Levaquin) Allergy (Verified 01/15/25 09:05) Shortness of breath PFSH Medical History Blood glucose elevated Encounter to [...] for a follow up evaluation. Reports they have been struggling more with the current economy as well as their plans for transition. Reports being upset by their family not being accepting of their transition. Has not been sleeping well since last appointment. Has not taken mirtazapine due to fear of over sleeping. Then reports 10-11 hours of sleep per night. Admits to a lack of energy by the end of the week. Admits to some feelings of depression most days which is accompanied by fatigue and lack of motivation. Is feeling hopeless. Does feel they are managing things well. Denies SI/HI. Admits to sometimes feelings of anxiety. Appetite has been poor overall. Has been eating but is not eating a well balanced diet. Has continued in counseling 1x weekly. Previous similar episode: Yes Age of first onset of symptoms: 11-20 years Review of Systems Constitutional Reports: fatigue (more in the morning); Denies: fever(s), chills or change in weight [...] erythema Neurological Reports: headache(s) Psychiatric Reports: anxiety, change in sleep pattern, hopelessness, memory loss and difficulty concentrating; Denies: mood swings, panic attacks, loss of interest, irritability, paranoia, visual hallucinations, auditory hallucinations, suicidal ideation or homicidal ideation Endocrine Reports: fatigue (more in the morning) Hematologic/Lymphatic Denies: easy bruising Allergic/Immunologic Denies: wheezing Exam Mental Status Exam - Psych Appearance casually dressed, adequately groomed and no apparent distress Attitude cooperative and calm Activity/Motor Behavior MSE activity/motor behavior finding no adventitious movements and appropriate eye contact Speech regular rate, regular volume and regular prosody Mood OK Affect flat Thought Process linear, logical and coherent Thought Content no delusions and no hallucinations Suicidal Ideation none Homicidal Ideation none Attention impaired (per patient self report) Concentration impaired (per patient self report) Sensorium/Orientation awake, alert and oriented x3 Memory/Cognition impaired (per patient self report) Insight good Judgement good Exam Constitutional Common normals: average body habitus and patient oriented x3 General appearance: well kempt and anxious Neuro Common normals: patient oriented x3 Speech: speech normal Gait (neuro): normal gait Psych Psychiatry clinicians, please identify where your Mental Status Exam is d (more content not included)... Normal [facility] MR/BMS.BPon 01-15-2025 MR/BMS. [facility] [address] [facility], [address] [place] [address] OFFICE VISIT Date of Service: 01/15/25 MR#: [id number] Acct: [id number] Name: REUBEN SAPP Rep #: [id number] : 1975 Provider: KRISTIAN monroe Age/Sex: 49/M Location: [facility] [place] Status: Signed Intake Vital Signs 01/01/25 11:08 01/15/25 09:03 Height 5 ft 6 in 5 ft 6 in Weight: 209 lb 4 oz BMI 33.7 BP 109/62 123/76 H Blood Pressure Location Rt brachial Lt brachial Position Sitting Sitting Respiration 16 Pulse 71 71 Pulse Source Monitor Monitor BP Intake Visit Reasons: 2 W FU Allergies latex Allergy (Verified 01/15/25 09:05) Rash levofloxacin (From Levaquin) Allergy (Verified 01/15/25 09:05) Shortness of breath Medications ???Medication ???Instructions ???Recorded ???Confirmed ???Type finasteride 5 mg tablet 5 mg PO QDAY 06/04/24 01/15/25 His tory estradiol 2 mg tablet 6 mg PO QDAY 10/30/24 01/15/25 His tory buspirone 15 mg tablet 15 mg PO BID #180 tabs 11/04/24 Rx fluoxetine 40 mg capsule 80 mg (2 x 40 mg) PO QDAY #180 cap s 11/04/24 01/15/25 Rx hydroxyzine HCl 25 mg tablet 25 mg PO QDAY #90 tabs 11/04/24 Rx prazosin 2 mg capsule 2 mg PO QHS #90 caps 11/04/24 0802/11 Rx budesonide-formoterol HFA 160 2 puff inhalation BID #10.2 grams 12/09/24 01/15/25 Rx mcg-4.5 mcg/actuation aerosol inhaler (Symbicort) esomeprazole magnesium 40 mg 40 mg PO QAM #90 caps 12/16/24 Rx capsule,delayed release famotidine 20 mg tablet 20 mg PO DAILY #90 tabs 12/16/24 0 01/15/25 Rx spironolactone 50 mg tablet 100 mg PO QDAY 12/18/24 01/15/25 H istory clonazepam 0.5 mg tablet 0.5 mg PO QHS PRN anxiety #30 tabs 01/15/25 01/15/25 Rx mirtazapine 7.5 mg tablet 7.5 mg PO QHS #30 tabs 01/15/25 Rx PFSH Medical History Blood glucose elevated Encounter to [...] today for a follow up evaluation. Reports more recent fatigue. Denies recent feelings of depression. Denies SI/HI. Admits to feelings of anxiety frequently and like they cannot think clearly at times. Denies panic attacks. Has been making more frequent mistakes. Has been having some more recent concerns with focus and inattention. Has been having difficulties falling asleep and then does not wake to wake in the morning. Is getting about 8 hours of sleep per night but has been showing up later and later to work due to not being able to fall asleep at night. Admits to a large lack of motivation. Has tried taking melatonin with no benefit. Appetite has been fine and has been eating small meals. Is eating 2 meals daily. Previous similar episode: Yes Age of first onset of symptoms: 11-20 years Review of Systems Constitutional Reports: fatigue (more in the morning); Denies: fever(s), chills or change in weight [...] erythema Neurological Reports: headache(s) Psychiatric Reports: anxiety, change in sleep pattern, memory loss and difficulty concentrating; Denies: mood swings, panic attacks, hopelessness, loss of interest, irritability, paranoia, visual hallucinations, auditory hallucinations, suicidal ideation or homicidal ideation Endocrine Reports: fatigue (more in the morning) Hematologic/Lymphatic Denies: easy bruising Allergic/Immunologic Denies: wheezing Exam Mental Status Exam - Psyc (more content not included)... Normal [facility] Comprehensive Metabolic Prof ilon 01-12-2025 Albumin [Mass/Vol] 4.2 g/dL Normal 3.5-5.0 [facility] Comment on above: Performed By: #### L 509.3001, L500.4050, L3300.1750 ####[facility] [address] [place], [address] Albumin/Globulin [Mass ratio] 1.4 {ratio} Normal 0.9-2.4 [facility] Comment on above: Performed By: #### L 509.3001, L500.4050, L3300.1750 ####[facility] [address], [address] ALK PHOS 88 U/L Normal 40-129 [facility] Comment on above: Performed By: #### L 509.3001, L500.4050, L3300.1750 ####[facility] [address], [address] ALT [Catalytic activity/Vol] 35 U/L Normal <=46 [facility] Comment on above: Performed By: #### L 509.3001, L500.4050, L3300.1750 ####[facility] [address] [place], [address] AST [Catalytic activity/Vol] 24 U/L Normal <=37 [facility] Comment on above: Performed By: #### L 509.3001, L500.4050, L3300.1750 ####[facility] [address] [place], [address] Bilirubin [Mass/Vol] 0.24 mg/dL Normal 0.00-1.30 [facility] Comment on above: Performed By: #### L 509.3001, L500.4050, L3300.1750 ####[facility] [address] [place], [address] BUN/CRE 14.8 RATIO Normal 10-20 [facility] Comment on above: Performed By: #### L 509.3001, L500.4050, L3300.1750 ####[facility] [address] [place], [address] Calcium [Mass/Vol] 9.0 mg/dL Normal 7.6-11.0 [facility] Comment on above: Performed By: #### L 509.3001, L500.4050, L3300.1750 ####[facility] [address] [place], [address] Chloride [Moles/Vol] 101 mmol/L Normal 98-108 [facility] Comment on above: Performed By: #### L 509.3001, L500.4050, L3300.1750 ####[facility] [address] [place], [address] CO2 [Moles/Vol] 21.2 mmol/L Normal 21.0-32.0 [facility] Comment on above: Performed By: #### L 509.3001, L500.4050, L3300.1750 ####[facility] [address] [place], [address] Creatinine [Mass/Vol] 1.06 mg/dL Normal 0.70-1.20 [facility] Comment on above: Performed By: #### L 509.3001, L500.4050, L3300.1750 ####[facility] [address] [place], [address] GAP 13 Normal 5-15 [facility] Comment on above: Performed By: #### L 509.3001, L500.4050, L3300.1750 ####[facility] [address] [place], [address] GFR/1.73 sq M.predicted among non-blacks MDRD (S/P/Bld) [Vol rate/Area] 85 mL/min/{1.73_m2} Normal >60 [facility] Comment on above: Result Comment: mL/m in/1.73m2 CKD-EPI Creatinine Equation (2020) Performed By: #### L 509.3001, L500.4050, L3300.1750 ####[facility] [address], [address] Globulin (S) [Mass/Vol] 2.9 g/dL Normal 2.2-4.2 [facility] Comment on above: Performed By: #### L 509.3001, L500.4050, L3300.1750 ####[facility] [address], [address] Glucose [Mass/Vol] 104 mg/dL High 70-99 [facility] Comment on above: Performed By: #### L 509.3001, L500.4050, L3300.1750 ####[facility] [address], [address] Potassium [Moles/Vol] 4.3 mmol/L Normal 3.3-5.1 [facility] Comment on above: Result Comment: Hemo lysis present, Results??could be affected. ?? Performed By: #### L 509.3001, L500.4050, L3300.1750 ####[facility] [address] [place], [address] Sodium [Moles/Vol] 135 mmol/L Normal 133-145 [facility] Comment on above: Performed By: #### L 509.3001, L500.4050, L3300.1750 ####[facility] [address] [place], [address] T PROT 7.0 g/dL Normal 5.9-8.4 [facility] Comment on above: Performed By: #### L 509.3001, L500.4050, L3300.1750 ####[facility] [address] [place], [address] Urea nitrogen [Mass/Vol] 16 mg/dL Normal 4-19 [facility] Comment on above: Performed By: #### L 509.3001, L500.4050, L3300.1750 ####[facility] [address], [address] Estradiolon 01-12-2025 ESTRADIOL 45.8 pg/mL Normal [facility] Comment on above: Result Comment: MALE S ADULT MALE: 10-40 pg/mL TRES STAGES MEAN AGE REFERENCE RANGES Stage I(>14 days and prepubertal) 7.1 years Undetectable-13 pg/mL Stage II 12.1 years Undetectable-16 pg/mL Stage III 13.6 years Undetectable-26 pg/mL Stage IV 15.1 years Undetectable-38 pg/mL Stage V 18 years 10-40 pg/mL Puberty onset (transition from Tres stage I to Tres Stage II) occurs for boys at a median age of 11.5 (+/- 2) years. For boys, there is no proven relationship between puberty onset and body weight or ethnic origin. Progression through Tres stages is variable. Tres stage V (adult) should be reached by age 18. Performed By: #### L 509.3001, L500.4050, L3300.1750 ####[facility] [address] [place], [address] L509.3001on 01-12-2025 Testosterone [Mass/Vol] 201.00 ng/dL Low 300-620 [facility] Comment on above: Performed By: #### L 509.3001, L500.4050, L3300.1750 ####[facility] [address] 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 Accompanied by: Self Is patient in pain?: Yes (headache) Pain scale (1-10): 2 Allergies latex Allergy (Verified 01/01/25 11:07) Rash levofloxacin (From Levaquin) Allergy (Verified 01/01/25 11:07) Shortness of breath Medications ???Medication ???Instructions ???Recorded ???Confirmed ???Type finasteride 5 mg tablet 5 mg PO QDAY 06/04/24 01/01/25 His tory estradiol 2 mg tablet 6 mg PO QDAY 10/30/24 01/01/25 His tory buspirone 15 mg tablet 15 mg PO BID #180 tabs 11/04/24 Rx clonazepam 0.5 mg tablet 0.5 mg PO QHS PRN anxiety #30 tabs 11/04/24 01/01/25 Rx fluoxetine 40 mg capsule 80 mg (2 x 40 mg) PO QDAY #180 cap s 11/04/24 01/01/25 Rx hydroxyzine HCl 25 mg tablet 25 mg PO QDAY #90 tabs 11/04/24 Rx prazosin 2 mg capsule 2 mg PO QHS #90 caps 11/04/24 0810/11 Rx budesonide-formoterol HFA 160 2 puff inhalation BID #10.2 grams 12/09/24 01/01/25 Rx mcg-4.5 mcg/actuation aerosol inhaler (Symbicort) esomeprazole magnesium 40 mg 40 mg PO QAM #90 caps 12/16/24 Rx capsule,delayed release famotidine 20 mg tablet 20 mg PO DAILY #90 tabs 12/16/24 0 01/01/25 Rx spironolactone 50 mg tablet 100 mg PO QDAY 12/18/24 01/01/25 H istory [facility] Medical History (Updated 12/18/24 @ 12:20 by Layo HERR, PA) Blood glucose elevated [...] Illness History provided by: patient Chief complaint: Depression HPI: Reuben Carreno is a 49 year old male patient presenting today for a follow up evaluation. Reports they have been doing well recently. Reports they were having some intrusive thoughts about wanting to hit people but was able to control things easily. Denies recent feelings of anxiety. Denies panic attacks. Is feelings more confident today than is normal and is concerned for mood. Has been sleeping well. 9 hours last night. Has been trying to hydrate more due to recent aches and pains, as advised by PCP. Reports they have been feeling some mild depression. Has recently gotten an interview with another company and they feel more validated with this and feels wanted. Is planning for the interview to be the beginning of next week. Denies SI/HI. Appetite has been good. Does have an appointment with the gender specialty therapist. Previous similar episode: Yes Age of first onset of symptoms: 11-20 years Review of Systems Constitutional Reports: fatigue (more in the morning); Denies: fever(s), chills or change in weight [...] pruritus or erythema Neurological Reports: headache(s) Psychiatric Denies: anxiety, mood swings, panic attacks, change in sleep pattern, hopelessness, loss of interest, irritability, paranoia, memory loss, difficulty concentrating, visual hallucinations, auditory hallucinations, suicidal ideation or homicidal ideation Endocrine Reports: fatigue (more in the morning) Hematologic/Lymphatic Denies: easy bruising Allergic/Immunologic Denies: wheezi (more content not included)... Normal [facility] Stress Reporton 12-31-[address] [facility] [address] [place] [address] MR#: [id number] Acct: [id number] Name: REUBEN SAPP Rep #: [id number] : 1975 49 From: Bryce Quinonez MD Primary Care: Dr. Keke Jackson MD Status: REG CLI Referring Dr: Layo Cheema Sex: M H Stress Test Report Exercise stress test. 49-year-old man with a history of chest pain Stress protocol: Resting EKG demonstrates normal sinus rhythm with a rate of 70 bpm resting blood pressure is 118/78 mmHg. The patient exercised according to the regular Navdeep protocol for a total duration of 7 minutes attaining a maximum heart rate of 148 bpm which was 87% of maximum predicted heart rate; the maximum workload was 10 METS metabolic equivalents. At rest there were no ST or T wave changes noted to suggest ischemia and at peak exercise upsloping ST changes only were noted which did not meet the criteria for ischemia. No clinical angina was noted the test was terminated due to the target heart rate being achieved/fatigue. The peak blood pressure was 144/84 mmHg. Rate-pressure product was 19,000 Conclusion: Stress test with no EKG criteria for ischemia at a high workload. No clinical angina. No arrhythmias noted. 12/31/24 1249 Date Bryce Quinonez MD CC: Dr. 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 [place], [place], [address] PHILLIP w/ Reflex Mult Confirmon 12-23-2024 ANTI-DNA (DS)AB TNP Normal [facility] Comment on above: Performed By: #### L 3100.5450, L500.4050, L501.9520, L100.0100, L501.3620, L501.5200 ####[facility] [address] [place], [place], [id number] ANTI-SS-A TNP Normal [facility] Comment on above: Performed By: #### L 3100.5450, L500.4050, L501.9520, L100.0100, L501.3620, L501.5200 ####[facility] [address] [place], [place], [phone] ANTI-SS-B TNP Normal [facility] Comment on above: Performed By: #### L 3100.5450, L500.4050, L501.9520, L100.0100, L501.3620, L501.5200 ####[facility] [address], [address] CBC W/Diff, Automatedon 08-0 1-2024 Absolute Lymph 2.08 X10 3/uL Normal 0.83-4.51 [facility] Comment on above: Performed By: #### L 3100.5450, L500.4050, L501.9520, L100.0100, L501.3620, L501.5200 ####[facility] [address], [address] Absolute Neut 2.5 X10 3/uL Normal 2.0-7.7 [facility] Comment on above: Performed By: #### L 3100.5450, L500.4050, L501.9520, L100.0100, L501.3620, L501.5200 ####[facility] [address], [address] Basophils/100 WBC (Bld) 1.4 % High 0-1 [facility] Comment on above: Performed By: #### L 3100.5450, L500.4050, L501.9520, L100.0100, L501.3620, L501.5200 ####[facility] [address], [address] Eosinophils/100 WBC (Bld) 6.0 % High 0-5 [facility] Comment on above: Performed By: #### L 3100.5450, L500.4050, L501.9520, L100.0100, L501.3620, L501.5200 ####[facility] [address], [address] Erythrocyte distribution width (RBC) [Ratio] 14.1 % Normal 11.6-14.6 [facility] Comment on above: Performed By: #### L 3100.5450, L500.4050, L501.9520, L100.0100, L501.3620, L501.5200 ####[facility] [address], [address] Hematocrit (Bld) [Volume fraction] 41.8 % Normal 40-54 [facility] Comment on above: Performed By: #### L 3100.5450, L500.4050, L501.9520, L100.0100, L501.3620, L501.5200 ####[facility] [address], [address] Hemoglobin (Bld) [Mass/Vol] 14.0 g/dL Normal 13.0-16.5 [facility] Comment on above: Performed By: #### L 3100.5450, L500.4050, L501.9520, L100.0100, L501.3620, L501.5200 ####[facility] [address], [address] IG% 0.200 Normal 0.0-0.9 [facility] Comment on above: Result Comment: IG% - Immature Granulocytes (promyelocytes, myelocytes and metamyelocytes) > 1% indicates that a LEFT SHIFT is Present. Performed By: #### L 3100.5450, L500.4050, L501.9520, L100.0100, L501.3620, L501.5200 ####[facility] [address], [address] Lymphocytes/100 WBC (Bld) 37.5 % Normal 19-41 [facility] Comment on above: Performed By: #### L 3100.5450, L500.4050, L501.9520, L100.0100, L501.3620, L501.5200 ####[facility] [address], [address] MCH (RBC) [Entitic mass] 29.5 pg Normal 27.0-32.0 [facility] Comment on above: Performed By: #### L 3100.5450, L500.4050, L501.9520, L100.0100, L501.3620, L501.5200 ####[facility] [address] [place], [address] MCHC (RBC) [Mass/Vol] 33.5 g/dL Normal 32-36 [facility] Comment on above: Performed By: #### L 3100.5450, L500.4050, L501.9520, L100.0100, L501.3620, L501.5200 ####[facility] [address] [place], [address] MCV (RBC) [Entitic vol] 88.2 fL Normal 80-94 [facility] Comment on above: Performed By: #### L 3100.5450, L500.4050, L501.9520, L100.0100, L501.3620, L501.5200 ####[facility] [address] [place], [address] Monocytes/100 WBC (Bld) 9.4 % Normal 0-10 [facility] Comment on above: Performed By: #### L 3100.5450, L500.4050, L501.9520, L100.0100, L501.3620, L501.5200 ####[facility] [address] [place], [address] Neutrophils/100 WBC (Bld) 45.5 % Low 47-70 [facility] Comment on above: Performed By: #### L 3100.5450, L500.4050, L501.9520, L100.0100, L501.3620, L501.5200 ####[facility] [address] [place], [address] Nucleated RBC (Bld) [#/Vol] 0 10*3/uL Normal 0-5 [facility] Comment on above: Performed By: #### L 3100.5450, L500.4050, L501.9520, L100.0100, L501.3620, L501.5200 ####[facility] [address] [place], [address] Platelet mean volume (Bld) [Entitic vol] 9.8 fL Normal 6.2-12.0 [facility] Comment on above: Performed By: #### L 3100.5450, L500.4050, L501.9520, L100.0100, L501.3620, L501.5200 ####[facility] [address] [place], [address] Platelets (Bld) [#/Vol] 319 10*3/uL Normal 150-450 [facility] Comment on above: Performed By: #### L 3100.5450, L500.4050, L501.9520, L100.0100, L501.3620, L501.5200 ####[facility] [address] [place], [address] RBC (Bld) [#/Vol] 4.74 10*6/uL Normal 4.6-6.2 [facility] Comment on above: Performed By: #### L 3100.5450, L500.4050, L501.9520, L100.0100, L501.3620, L501.5200 ####[facility] [address] [place], [address] RDW SD 45.6 fl High 35.1-43.9 [facility] Comment on above: Performed By: #### L 3100.5450, L500.4050, L501.9520, L100.0100, L501.3620, L501.5200 ####[facility] [address] [place], [address] WBC (Bld) [#/Vol] 5.5 10*3/uL Normal 4.4-11.0 [facility] Comment on above: Performed By: #### L 3100.5450, L500.4050, L501.9520, L100.0100, L501.3620, L501.5200 ####[facility] [address], [address] CPK Total, Creatine Kinaseon 12-18-2024 CPK TOTAL 411 U/L High 24-195 [facility] Comment on above: Performed By: #### L 3100.5450, L500.4050, L501.9520, L100.0100, L501.3620, L501.5200 ####[facility] [address] [place], [address] Comprehensive Metabolic Prof ilon 12-18-2024 Albumin [Mass/Vol] 4.3 g/dL Normal 3.5-5.0 [facility] Comment on above: Performed By: #### L 3100.5450, L500.4050, L501.9520, L100.0100, L501.3620, L501.5200 ####[facility] [address] [place], [address] Albumin/Globulin [Mass ratio] 1.5 {ratio} Normal 0.9-2.4 [facility] Comment on above: Performed By: #### L 3100.5450, L500.4050, L501.9520, L100.0100, L501.3620, L501.5200 ####[facility] [address] [place], [address] ALK PHOS 90 U/L Normal 40-129 [facility] Comment on above: Performed By: #### L 3100.5450, L500.4050, L501.9520, L100.0100, L501.3620, L501.5200 ####[facility] [address] [place], [address] ALT [Catalytic activity/Vol] 35 U/L Normal <=46 [facility] Comment on above: Performed By: #### L 3100.5450, L500.4050, L501.9520, L100.0100, L501.3620, L501.5200 ####[facility] [address] [place], [address] AST [Catalytic activity/Vol] 28 U/L Normal <=37 [facility] Comment on above: Performed By: #### L 3100.5450, L500.4050, L501.9520, L100.0100, L501.3620, L501.5200 ####[facility] [address], [address] Bilirubin [Mass/Vol] 0.52 mg/dL Normal 0.00-1.30 [facility] Comment on above: Performed By: #### L 3100.5450, L500.4050, L501.9520, L100.0100, L501.3620, L501.5200 ####[facility] [address] [place], [address] BUN/CRE 17.5 RATIO Normal 10-20 [facility] Comment on above: Performed By: #### L 3100.5450, L500.4050, L501.9520, L100.0100, L501.3620, L501.5200 ####[facility] [address] [place], [address] Calcium [Mass/Vol] 9.5 mg/dL Normal 7.6-11.0 [facility] Comment on above: Performed By: #### L 3100.5450, L500.4050, L501.9520, L100.0100, L501.3620, L501.5200 ####[facility] [address], [address] Chloride [Moles/Vol] 102 mmol/L Normal 98-108 [facility] Comment on above: Performed By: #### L 3100.5450, L500.4050, L501.9520, L100.0100, L501.3620, L501.5200 ####[facility] [address], [address] CO2 [Moles/Vol] 20.5 mmol/L Low 21.0-32.0 [facility] Comment on above: Performed By: #### L 3100.5450, L500.4050, L501.9520, L100.0100, L501.3620, L501.5200 ####[facility] [address], [address] Creatinine [Mass/Vol] 1.11 mg/dL Normal 0.70-1.20 [facility] Comment on above: Performed By: #### L 3100.5450, L500.4050, L501.9520, L100.0100, L501.3620, L501.5200 ####[facility] [address], [address] GAP 12 Normal 5-15 [facility] Comment on above: Performed By: #### L 3100.5450, L500.4050, L501.9520, L100.0100, L501.3620, L501.5200 ####[facility] [address], [address] GFR/1.73 sq M.predicted among non-blacks MDRD (S/P/Bld) [Vol rate/Area] 80 mL/min/{1.73_m2} Normal >60 [facility] Comment on above: Result Comment: mL/m in/1.73m2 CKD-EPI Creatinine Equation (2020) Performed By: #### L 3100.5450, L500.4050, L501.9520, L100.0100, L501.3620, L501.5200 ####[facility] [address], [address] Globulin (S) [Mass/Vol] 2.9 g/dL Normal 2.2-4.2 [facility] Comment on above: Performed By: #### L 3100.5450, L500.4050, L501.9520, L100.0100, L501.3620, L501.5200 ####[facility] [address], [address] Glucose [Mass/Vol] 94 mg/dL Normal 70-99 [facility] Comment on above: Performed By: #### L 3100.5450, L500.4050, L501.9520, L100.0100, L501.3620, L501.5200 ####[facility] [address], [address] Potassium [Moles/Vol] 4.4 mmol/L Normal 3.3-5.1 [facility] Comment on above: Performed By: #### L 3100.5450, L500.4050, L501.9520, L100.0100, L501.3620, L501.5200 ####[facility] [address], [address] Sodium [Moles/Vol] 134 mmol/L Normal 133-145 [facility] Comment on above: Performed By: #### L 3100.5450, L500.4050, L501.9520, L100.0100, L501.3620, L501.5200 ####[facility] [address], [address] T PROT 7.1 g/dL Normal 5.9-8.4 [facility] Comment on above: Performed By: #### L 3100.5450, L500.4050, L501.9520, L100.0100, L501.3620, L501.5200 ####[facility] [address] [place], [address] Urea nitrogen [Mass/Vol] 19 mg/dL Normal 4-19 [facility] Comment on above: Performed By: #### L 3100.5450, L500.4050, L501.9520, L100.0100, L501.3620, L501.5200 ####[facility] [address] [place], [address] Internal Medicine Office Vis iton 12-18-2024 Internal Medicine Office Visit [facility] [address] [place] [address] OFFICE VISIT Date of Service: 12/18/24 MR#: [id number] Acct: [id number] Name: REUBEN SAPP Rep #: [id number] : 1975 Provider: CARMENZA Manzano Age/Sex: 49/M Location: [facility] Status: Signed Intake Vital Signs 12/09/24 15:11 [...] air Intake Visit Reasons: FOLLOW UP FROM [facility] Chief Complaint: FU FROM [facility] Is patient in pain?: Yes (GENERALIZED [...] capsule 2 mg PO QHS #90 caps 11/04/2406/13 Rx budesonide-formoterol HFA 160 2 puff inhalation [...] STATING THINGS THAT NEED TO BE DISCUSSED. [facility] Medical History Blood glucose elevated Encounter to [...] and colleagues, with an educational noe from [employer]. DAVID-7 BMS DAVID-7 Feeling nervous, anxious, or [...] and colleagues, with an educational noe from [employer] (more content not included)... Normal [facility] Magnesiumon 12-18-2024 Magnesium [Mass/Vol] 2.2 mg/dL Normal 1.5-2.2 [facility] Comment on above: Performed By: #### L 3100.5450, L500.4050, L501.9520, L100.0100, L501.3620, L501.5200 ####[facility] [address] [place], [address] Thyroid Stim Hormone (TSH)on 12-18-2024 TSH 3.760 uIU/mL Normal 0.300-4.200 [facility] Comment on above: Performed By: #### L 3100.5450, L500.4050, L501.9520, L100.0100, L501.3620, L501.5200 ####[facility] [address] [place], [address] Internal Medicine Office Vis iton 12-09-2024 Internal Medicine Office Visit [facility] [address] [place] [address] OFFICE VISIT Date of Service: 12/09/24 MR#: [id number] Acct: [id number] Name: HENRY CARRENOREUBEN RODRIGEZ Rep #: [id number] : 1975 Provider: CARMENZA Manzano Age/Sex: 49/M Location: [facility] Status: Signed Intake Vital Signs 11/06/24 17:31 12/09/24 15:11 Height 5 ft 6 in 5 ft 6 in Weight: 210 lb 6 oz BMI 33.9 BP 128/70 H Blood Pressure Location Lt brachial Position Sitting Respiration 18 Pulse 68 Pulse Source Monitor Temp 97.7 F L Temp Source Temporal Pulse Oximetry (%) 98 Oxygen Delivery Method room air Intake Visit Reasons: [facility] FOLLOW UP 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 [facility] Medical History (Updated 12/10/24 @ 09:18 by CARMENZA Marti) Blood glucose elevated Encounter to establish care [...] first thing (more content not included)... Normal [facility] 12 Lead EKGon 11-06-2024 12 Lead EKG [facility] Cardiovascular Services [address] [place] [address] 12 Lead EKG 11/06/24 1750 MR#: [id number] Acct: [id number] Name: REUBEN SAPP Rep #: [id number] : 1975 49 From: Pankaj Keller MD [...] msec Abnormal ECG Confirmed by Pankaj Keller ([id number]), legal editor REIS STARKEY ([id number]) on 11/10/2024 11:43:28 AM Referred By: Confirmed By: Pankaj Keller 11/10/24 1143 Date Pankaj Keller MD CC: Dr. Rakesh Broderick DO; Dr. Keke Jackson MD; CARMENZA Harman Signed Normal [facility] Basic Metabolic Profile (BMP )on 11-06-2024 Calcium [Mass/Vol] 9.0 mg/dL Normal 7.6-11.0 [facility] Comment on above: Performed By: #### L 500.2500, L100.0100, L501.4021 ####[facility] [address] [place], [address] CBC W/Diff, Automatedon 10-19 Absolute Lymph 2.38 X10 3/uL Normal 0.83-4.51 [facility] Comment on above: Performed By: #### L 500.2500, L100.0100, L501.4021 #### [facility] [address], [address] Absolute Neut 4.1 X10 3/uL Normal 2.0-7.7 [facility] Comment on above: Performed By: #### L 500.2500, L100.0100, L501.4021 #### [facility] [address], [address] Basophils/100 WBC (Bld) 1.2 % High 0-1 [facility] Comment on above: Performed By: #### L 500.2500, L100.0100, L501.4021 #### [facility] [address], [address] Eosinophils/100 WBC (Bld) 3.5 % Normal 0-5 [facility] Comment on above: Performed By: #### L 500.2500, L100.0100, L501.4021 #### [facility] [address], [address] Erythrocyte distribution width (RBC) [Ratio] 13.2 % Normal 11.6-14.6 [facility] Comment on above: Performed By: #### L 500.2500, L100.0100, L501.4021 #### [facility] [address], [address] Hematocrit (Bld) [Volume fraction] 41.3 % Normal 40-54 [facility] Comment on above: Performed By: #### L 500.2500, L100.0100, L501.4021 #### [facility] [address] [place], [address] Hemoglobin (Bld) [Mass/Vol] 14.5 g/dL Normal 13.0-16.5 [facility] Comment on above: Performed By: #### L 500.2500, L100.0100, L501.4021 #### [facility] [address], [address] IG% 0.300 Normal 0.0-0.9 [facility] Comment on above: Result Comment: IG% - Immature Granulocytes (promyelocytes, myelocytes and metamyelocytes) > 1% indicates that a LEFT SHIFT is Present. Performed By: #### L 500.2500, L100.0100, L501.4021 #### [facility] [address] [place], [address] Lymphocytes/100 WBC (Bld) 32.0 % Normal 19-41 [facility] Comment on above: Performed By: #### L 500.2500, L100.0100, L501.4021 #### [facility] [address] [place], [address] MCH (RBC) [Entitic mass] 30.0 pg Normal 27.0-32.0 [facility] Comment on above: Performed By: #### L 500.2500, L100.0100, L501.4021 #### [facility] [address] [place], [address] MCHC (RBC) [Mass/Vol] 35.1 g/dL Normal 32-36 [facility] Comment on above: Performed By: #### L 500.2500, L100.0100, L501.4021 #### [facility] [address] [place], [address] MCV (RBC) [Entitic vol] 85.5 fL Normal 80-94 [facility] Comment on above: Performed By: #### L 500.2500, L100.0100, L501.4021 #### [facility] [address], [address] Monocytes/100 WBC (Bld) 8.3 % Normal 0-10 [facility] Comment on above: Performed By: #### L 500.2500, L100.0100, L501.4021 #### [facility] [address], [address] Neutrophils/100 WBC (Bld) 54.7 % Normal 47-70 [facility] Comment on above: Performed By: #### L 500.2500, L100.0100, L501.4021 #### [facility] [address] [place], [address] Nucleated RBC (Bld) [#/Vol] 0 10*3/uL Normal 0-5 [facility] Comment on above: Performed By: #### L 500.2500, L100.0100, L501.4021 #### [facility] [address] [place], [address] Platelet mean volume (Bld) [Entitic vol] 9.1 fL Normal 6.2-12.0 [facility] Comment on above: Performed By: #### L 500.2500, L100.0100, L501.4021 #### [facility] [address] [place], [address] Platelets (Bld) [#/Vol] 295 10*3/uL Normal 150-450 [facility] Comment on above: Performed By: #### L 500.2500, L100.0100, L501.4021 #### [facility] [address] [place], [address] RBC (Bld) [#/Vol] 4.83 10*6/uL Normal 4.6-6.2 [facility] Comment on above: Performed By: #### L 500.2500, L100.0100, L501.4021 #### [facility] [address], [address] RDW SD 41.0 fl Normal 35.1-43.9 [facility] Comment on above: Performed By: #### L 500.2500, L100.0100, L501.4021 #### [facility] [address] [place], [address] WBC (Bld) [#/Vol] 7.4 10*3/uL Normal 4.4-11.0 [facility] Comment on above: Performed By: #### L 500.2500, L100.0100, L501.4021 #### [facility] [address] [place], [address] CNOVon 11-06-2024 CNOV Office Visit ([facility] ) HENRY REUBEN CARRENO ([id number]) 1975 M Date Time Provider Department 11/06/24 5:15 PM BUDDY TEMPLE [facility] During your visit today, we recorded the following information about you: Buddy Temple APRN.[employer] SUPERVISOR 11/06/2024 5:40 PM Signed Patient came in [...] Encounter Status:Closed by BUDDY TEMPLE on 11/06/24 Normal [facility] Chest PA and Lateralon 11-06 Chest PA and Lateral [facility] Imaging Services [address] [place] [address] [id number] Chest PA and Lateral MR#: [id number] Acct: [id number] Name: REUBEN SAPP Rep #: [id number] : 1975 M 49 From: Michael Queen MD PCP: Dr. Keke Jackson MD Status: REG ER Study: Chest PA and Lateral Date of Exam: 11/06/24 Exam# [id number] Ordering Dr: Taylor Munoz EXAM: XR Chest, 2 Views CLINICAL INDICATION: CHEST PAIN TECHNIQUE: Frontal and lateral views of the chest. COMPARISON: No relevant prior studies available. FINDINGS: LUNGS AND PLEURAL SPACES: Unremarkable. No consolidation. No pneumothorax. HEART: Unremarkable. No cardiomegaly. MEDIASTINUM: Unremarkable. Normal mediastinal contour. BONES/JOINTS: Unremarkable. No acute fracture. RAD/Chest PA and Lateral IMPRESSION: No acute cardiopulmonary process. Reading Location: [facility] CC: Dr. Keke Jackson MD; CARMENZA Harman [employer]oll Settlement Clerk: Signed Normal [facility] Emergency Department Summary on 11-06-[address] [facility] Medical Records Department [address] [place] [address] Emergency Department Summary 11/06/24 MR#: [id number] Acct: [id number] Name: REUBEN SAPP Rep #: [id number] : 1975 49 From: Rakesh Broderick DO [...] states he ate a chicken sandwich at [employer] and had a few seconds of the pain afterward. He has no shortness of breath, nausea or vomiting, or abdominal or back pain. He has normal bladder and bowel movements. He denies fever chills or upper respiratory symptoms. He is on esomeprazole and famotidine for GERD. [facility] Medical History (Updated 11/06/24 @ 21:05 by [...] 11/06/24 21:00 (more content not included)... Normal [facility] L499.0042on 11-06-2024 Trop T High Sen 9 ng/L Normal <=22 [facility] Comment on above: Performed By: #### L 499.0042 ####[facility] [address] [place], [address] L501.4021on 11-06-2024 Trop T High Sen 9 ng/L Normal <=22 [facility] Comment on above: Performed By: #### L 500.2500, L100.0100, L501.4021 #### [facility] [address] [place], [address] /BMS.BPon 11-04-2024 MR/BMS.BP [address], [address] [place] [address] OFFICE VISIT Date of Service: 11/04/24 MR#: [id number] Acct: [id number] Name: REUBEN SAHU Rep #: [id number] : 1975 Provider: KRISTIAN monroe Age/Sex: 49/M Location: [facility] [place] Status: Signed Intake Vital Signs 09/10/24 10:35 [...] Hematologic/Lymphatic Denies: (more content not included)... Normal [facility] CBC W/Diff, Automatedon 10-18 Absolute Lymph 2.01 X10 3/uL Normal 0.83-4.51 [facility] Comment on above: Performed By: #### L 500.4050, L500.4100, L501.9910, L100.0100 #### [facility] [address] [place], [address] Absolute Neut 2.0 X10 3/uL Normal 2.0-7.7 [facility] Comment on above: Performed By: #### L 500.4050, L500.4100, L501.9910, L100.0100 #### [facility] [address] [place], [address] Basophils/100 WBC (Bld) 1.6 % High 0-1 [facility] Comment on above: Performed By: #### L 500.4050, L500.4100, L501.9910, L100.0100 #### [facility] [address] [place], [address] Eosinophils/100 WBC (Bld) 6.0 % High 0-5 [facility] Comment on above: Performed By: #### L 500.4050, L500.4100, L501.9910, L100.0100 #### [facility] [address], [address] Erythrocyte distribution width (RBC) [Ratio] 13.6 % Normal 11.6-14.6 [facility] Comment on above: Performed By: #### L 500.4050, L500.4100, L501.9910, L100.0100 #### [facility] [address] [place], [address] Hematocrit (Bld) [Volume fraction] 41.6 % Normal 40-54 [facility] Comment on above: Performed By: #### L 500.4050, L500.4100, L501.9910, L100.0100 #### [facility] [address] [place], [address] Hemoglobin (Bld) [Mass/Vol] 14.1 g/dL Normal 13.0-16.5 [facility] Comment on above: Performed By: #### L 500.4050, L500.4100, L501.9910, L100.0100 #### [facility] [address] [place], [address] IG% 0.200 Normal 0.0-0.9 [facility] Comment on above: Result Comment: IG% - Immature Granulocytes (promyelocytes, myelocytes and metamyelocytes) > 1% indicates that a LEFT SHIFT is Present. Performed By: #### L 500.4050, L500.4100, L501.9910, L100.0100 #### [facility] [address] [place], [address] Lymphocytes/100 WBC (Bld) 41.4 % High 19-41 [facility] Comment on above: Performed By: #### L 500.4050, L500.4100, L501.9910, L100.0100 #### [facility] [address] [place], [address] MCH (RBC) [Entitic mass] 30.1 pg Normal 27.0-32.0 [facility] Comment on above: Performed By: #### L 500.4050, L500.4100, L501.9910, L100.0100 #### [facility] [address] [place], [address] MCHC (RBC) [Mass/Vol] 33.9 g/dL Normal 32-36 [facility] Comment on above: Performed By: #### L 500.4050, L500.4100, L501.9910, L100.0100 #### [facility] [address] [place], [address] MCV (RBC) [Entitic vol] 88.7 fL Normal 80-94 [facility] Comment on above: Performed By: #### L 500.4050, L500.4100, L501.9910, L100.0100 #### [facility] [address] [place], [address] Monocytes/100 WBC (Bld) 9.7 % Normal 0-10 [facility] Comment on above: Performed By: #### L 500.4050, L500.4100, L501.9910, L100.0100 #### [facility] [address] [place], [address] Neutrophils/100 WBC (Bld) 41.1 % Low 47-70 [facility] Comment on above: Performed By: #### L 500.4050, L500.4100, L501.9910, L100.0100 #### [facility] [address] [place], [address] Nucleated RBC (Bld) [#/Vol] 0 10*3/uL Normal 0-5 [facility] Comment on above: Performed By: #### L 500.4050, L500.4100, L501.9910, L100.0100 #### [facility] [address] [place], [address] Platelet mean volume (Bld) [Entitic vol] 9.5 fL Normal 6.2-12.0 [facility] Comment on above: Performed By: #### L 500.4050, L500.4100, L501.9910, L100.0100 #### [facility] [address] [place], [address] Platelets (Bld) [#/Vol] 282 10*3/uL Normal 150-450 [facility] Comment on above: Performed By: #### L 500.4050, L500.4100, L501.9910, L100.0100 #### [facility] [address] [place], [address] RBC (Bld) [#/Vol] 4.69 10*6/uL Normal 4.6-6.2 [facility] Comment on above: Performed By: #### L 500.4050, L500.4100, L501.9910, L100.0100 #### [facility] [address] [place], [address] RDW SD 44.3 fl High 35.1-43.9 [facility] Comment on above: Performed By: #### L 500.4050, L500.4100, L501.9910, L100.0100 #### [facility] [address] [place], [address] WBC (Bld) [#/Vol] 4.9 10*3/uL Normal 4.4-11.0 [facility] Comment on above: Performed By: #### L 500.4050, L500.4100, L501.9910, L100.0100 #### [facility] [address] [place], [address] Comprehensive Metabolic [facility] 10-30-2024 Albumin [Mass/Vol] 4.2 g/dL Normal 3.5-5.0 [facility] Comment on above: Performed By: #### L 500.4050, L500.4100, L501.9910, L100.0100 #### [facility] [address] [place], [address] Albumin/Globulin [Mass ratio] 1.5 {ratio} Normal 0.9-2.4 [facility] Comment on above: Performed By: #### L 500.4050, L500.4100, L501.9910, L100.0100 #### [facility] [address] [place], [address] ALK PHOS 85 U/L Normal 40-129 [facility] Comment on above: Performed By: #### L 500.4050, L500.4100, L501.9910, L100.0100 #### [facility] [address] [place], [address] ALT [Catalytic activity/Vol] 32 U/L Normal <=46 [facility] Comment on above: Performed By: #### L 500.4050, L500.4100, L501.9910, L100.0100 #### [facility] [address] [place], [address] AST [Catalytic activity/Vol] 25 U/L Normal <=37 [facility] Comment on above: Performed By: #### L 500.4050, L500.4100, L501.9910, L100.0100 #### [facility] [address] [place], [address] Bilirubin [Mass/Vol] 0.43 mg/dL Normal 0.00-1.30 [facility] Comment on above: Performed By: #### L 500.4050, L500.4100, L501.9910, L100.0100 #### [facility] [address] [place], [address] BUN/CRE 12.4 RATIO Normal 10-20 [facility] Comment on above: Performed By: #### L 500.4050, L500.4100, L501.9910, L100.0100 #### [facility] [address] [place], [address] Calcium [Mass/Vol] 9.1 mg/dL Normal 7.6-11.0 [facility] Comment on above: Performed By: #### L 500.4050, L500.4100, L501.9910, L100.0100 #### [facility] [address] [place], [address] Chloride [Moles/Vol] 103 mmol/L Normal 98-108 [facility] Comment on above: Performed By: #### L 500.4050, L500.4100, L501.9910, L100.0100 #### [facility] [address], [address] CO2 [Moles/Vol] 20.8 mmol/L Low 21.0-32.0 [facility] Comment on above: Performed By: #### L 500.4050, L500.4100, L501.9910, L100.0100 #### [facility] [address], [address] Creatinine [Mass/Vol] 1.13 mg/dL Normal 0.70-1.20 [facility] Comment on above: Performed By: #### L 500.4050, L500.4100, L501.9910, L100.0100 #### [facility] [address] [place], [address] GAP 11 Normal 5-15 [facility] Comment on above: Performed By: #### L 500.4050, L500.4100, L501.9910, L100.0100 #### [facility] [address] [place], [address] GFR/1.73 sq M.predicted among non-blacks MDRD (S/P/Bld) [Vol rate/Area] 79 mL/min/{1.73_m2} Normal >60 [facility] Comment on above: Result Comment: mL/m in/1.73m2 CKD-EPI Creatinine Equation (2020) Performed By: #### L 500.4050, L500.4100, L501.9910, L100.0100 #### [facility] [address] [place], [address] Globulin (S) [Mass/Vol] 2.7 g/dL Normal 2.2-4.2 [facility] Comment on above: Performed By: #### L 500.4050, L500.4100, L501.9910, L100.0100 #### [facility] [address] [place], [address] Glucose [Mass/Vol] 132 mg/dL High 70-99 [facility] Comment on above: Performed By: #### L 500.4050, L500.4100, L501.9910, L100.0100 #### [facility] [address] [place], [address] Potassium [Moles/Vol] 3.9 mmol/L Normal 3.3-5.1 [facility] Comment on above: Performed By: #### L 500.4050, L500.4100, L501.9910, L100.0100 #### [facility] [address] [place], [address] Sodium [Moles/Vol] 135 mmol/L Normal 133-145 [facility] Comment on above: Performed By: #### L 500.4050, L500.4100, L501.9910, L100.0100 #### [facility] [address] [place], [address] T PROT 6.9 g/dL Normal 5.9-8.4 [facility] Comment on above: Performed By: #### L 500.4050, L500.4100, L501.9910, L100.0100 #### [facility] [address] [place], [address] Urea nitrogen [Mass/Vol] 14 mg/dL Normal 4-19 [facility] Comment on above: Performed By: #### L 500.4050, L500.4100, L501.9910, L100.0100 #### [facility] [address] [place], [address] Hemoglobin A1con 10-30-2024 HbA1c (Bld) [Mass fraction] 6.1 % High <=5.6 [facility] Comment on above: Result Comment: Norm al < 5.7 % Prediabetic 5.7 - 6.4 % Diabetic >or= 6.5 % Please note range changes. Performed By: #### L 501.9985 ####[facility] [address] [place], [place], [address] Internal Medicine Office Vis iton 10-30-2024 Internal Medicine Office Visit [facility] [address] [place], [place] [address] OFFICE VISIT Date of Service: 10/30/24 MR#: [id number] Acct: [id number] Name: REUBEN SAHU Rep #: [id number] : 1975 Provider: Dr. 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 No acute concerns at this time. Had previously followed up with Dr. Crocker in [place]. He also currently follows up with urology, psychiatry and a provider in [place] for gender affirming care. Has been on [...] not. Also follows up with dermatology at [facility]. ROS Const Constitutional: No body [...] No dr (more content not included)... Normal [facility] Lipid Profileon 10-30-2024 CHOL:HDL 3.35 Normal [facility] Comment on above: Performed By: #### L 500.4050, L500.4100, L501.9910, L100.0100 #### [facility] [address] [place], [address] Cholesterol [Mass/Vol] 165 mg/dL Normal <=200 [facility] Comment on above: Result Comment: Chol esterol level, Desirable <200 mg/dL Borderline high cholesterol 200-239 mg/dL High cholesterol >=240 mg/dL Recommendations of the NCEP Adult Treatment Panel for the following risk-cutoff thresholds for the [place] population. Performed By: #### L 500.4050, L500.4100, L501.9910, L100.0100 #### [facility] [address], [address] Cholesterol in HDL [Mass/Vol] 49 mg/dL Normal [facility] Comment on above: Result Comment: Kristina onal Cholesterol Education Program (NCEP) guidelines: <40 mg/dL: Low HDL-cholesterol (major risk factor for CHD) >= 60 mg/dL: High HDL-cholesterol (negative risk factor for CHD) HDL-cholesterol is affected by a number of factors, e.g. smoking, exercise, hormones, sex and age. Performed By: #### L 500.4050, L500.4100, L501.9910, L100.0100 #### [facility] [address], [address] Cholesterol in LDL [Mass/Vol] 82 mg/dL Normal [facility] Comment on above: Result Comment: Bord iykhsz=399-410 mg/dL Higher Asmw=529 mg/dL or greater Performed By: #### L 500.4050, L500.4100, L501.9910, L100.0100 #### [facility] [address], [address] Cholesterol in VLDL [Mass/Vol] 34 mg/dL Normal 5-40 [facility] Comment on above: Performed By: #### L 500.4050, L500.4100, L501.9910, L100.0100 #### [facility] [address], [address] Triglyceride [Mass/Vol] 168 mg/dL Normal [facility] Comment on above: Result Comment: The drugs N-Acetylcysteine and Metamizole may falsely depress this assay. Normal range: <150 mg/dL Borderline High: 150-199 mg/dL High: 200-499 mg/dL Very High: >500 mg/dL Performed By: #### L 500.4050, L500.4100, L501.9910, L100.0100 #### [facility] [address], [address] PSA,Total - Annual Screenon 10-30-2024 PSA,TOT SCREEN 0.12 ng/mL Normal 0.02-4.00 [facility] Comment on above: Result Comment: [...] By: #### L 500.4050, L500.4100, L501.9910, L100.0100 #### [facility] 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 Has started in group therapy in [place] but has only been one time and [...] casually dress (more content not included)... Normal [facility] MR/BMS.BPon 07-16-2024 MR/BMS. [facility] [address] [facility], [address] [place] [address] OFFICE VISIT Date of Service: 07/16/24 MR#: [id number] Acct: [id number] Name: REUBEN SAHU Rep #: [id number] : 1975 Provider: KRISTIAN monroe Age/Sex: 49/M Location: [facility] [place] Status: Signed Intake Vital Signs 05/05/24 10:32 [...] Denies: whe (more content not included)... [facility] ([facility] ) REUBEN SAPP ([id number]) 1975 M Date Time Provider Department 07/09/24 4:45 PM MINERVA EASTON [facility] During your visit today, we recorded the following information about you: Temperature Pulse Respiration Blood pressure 97.6 degrees 67/minute 18/minute 133/85 Weight 97.5 kg Minerva Easton APRN.RAIL GANG SUPERVISOR 07/09/2024 5:08 PM Signed Subjective HPI Pt [...] he passed out. Pt reports going to [place] ER to be evaluated, which he was [...] illness TEACHI (more content not included)... Normal [facility] Emergency Department Summary on 07-05-2024 Emergency Department Summary [facility] Medical Records Department [address] [place] [address] Emergency Department Summary 07/05/24 MR#: [id number] Acct: [id number] Name: REUBEN SAHU Rep #: [id number] : 1975 49 From: Nash Geller MD [...] decision mike (more content not included)... [facility] REUBEN SAPP ([id number]) 1975 M Date Time Provider Department 07/04/24 11:15 AM EMELY ACUNA [facility] During your visit today, we recorded the following information about you: Temperature Pulse Respiration Blood pressure 97.1 degrees 78/minute 16/minute 118/84 Weight 97.9 kg Emely Acuna APRN.RAIL GANG SUPERVISOR 07/04/2024 11:56 AM Signed Subjective The history is provided by the patient. No speech language therapist was used. [facility] Reuben Carreno is a 49 year [...] have confirmed and edited as necessary, the [facility] Review of Systems Constitutional: Positive for [...] prompt ER evaluation. Emely Acuna APRN.Emely Wolf APRN.LULU 07/04/2024 11:56 AM Signed Tessalon Perles 2 every 8 hours, do [...] pain, difficu (more content not included)... Normal [facility] CNOVon 07-02-2024 [facility] Office Visit ([facility] ) REUBEN SAPP ([id number]) 1975 M Date Time Provider Department 07/02/24 2:00 PM HOLDEN ROGERS [facility] During your visit today, we recorded [...] Reactions Fluvoxamine Other: See Comments Hypertension Nitrofurantoin [place]* Other: See Comments Hypertension Latex, Natural Rubb* [...] Diagnosis:Acute cough [R05.1] Order(s):XR CHEST 2V FRONTAL/LAT [[id number]] Order #: [id number] FUTURE benzonatate (TESSALON PERLE) 100 mg capsuleTake [...] by mouth (more content not included)... Normal [facility] XR CHEST 2V FRONTAL/LATon XR CHEST 2V [...] tissues: Unremarkable. IMPRESSION: No acute radiographic abnormality. Toll Settlement Clerk: [facility] Transcribe Date/Time: Jul 02 2024 1:55P Dictated by : MAVERICK BORDEN MD This examination was interpreted and the report reviewed and electronically signed by: MAVERICK BORDEN MD on Jul 02 2024 1:55PM EST [id number] Normal [facility] XR Chest PA and Lateralon IMPRESSION: No acute radiographic abnormality. Toll Settlement Clerk: [facility] Transcribe Date/Time: Jul 02 2024 1:55P [...] soft tissues: Unremarkable. DIVISION OF RADIOLOGY Provider, Mike Thapa - 07/02/2024 * * *Final Report* * [...] Unremarkable. IMPRESSION IMPRESSION: No acute radiographic abnormality. Toll Settlement Clerk: [facility] Transcribe Date/Time: Jul 02 2024 1:55P Dictated by : MAVERICK BORDEN MD This examination was interpreted and the report reviewed and electronically signed by: MAVERICK BORDEN MD on Jul 02 2024 1:55PM EST [facility] Radiology Study observation (narrative) [facility] XR Chest PA and LateralOrder ed By: Ccf Provider on 07-02-2024 [facility] CNOVon 06-17-2024 [facility] Office Visit ([facility] ) REUBEN SAPP ([id number]) 1975 M Date Time Provider Department 06/17/24 2:00 PM MYESHA ORTIZ [facility] During your visit today, we recorded the following information about you: Temperature Pulse Respiration Blood pressure 98.2 degrees 78/minute 20/minute 148/100 Weight 95.2 kg Myesha Ortiz APRN.RAIL GANG SUPERVISOR 06/17/2024 2:48 PM Signed Subjective HPI HPI [...] HFA 90 MCG/ACTUATION AEROSOL INHALER Myesha Ortiz APRN.RAIL GANG SUPERVISOR Allergies As of Date: 06/17/2024 Noted Allergy [...] of asthma [Z87.09] Order(s):XR CHEST 2V FRONTAL/LAT [[id number]] Order #: [id number]. [id number] albuterol (more content not included)... Normal [facility] XR CHEST 2V FRONTAL/LATon XR CHEST 2V [...] tissues: Unremarkable. IMPRESSION: No acute radiographic abnormality. Toll Settlement Clerk: [facility] Transcribe Date/Time: Jun 17 2024 2:33P Dictated by : BRAYAN LILLY DO This examination was interpreted and the report reviewed and electronically signed by: BRAYAN LILLY DO on Jun 17 2024 2:34PM EST [id number] Normal [facility] XR Chest PA and Lateralon IMPRESSION: No acute radiographic abnormality. Toll Settlement Clerk: [facility] Transcribe Date/Time: Jun 17 2024 2:33P [...] soft tissues: Unremarkable. DIVISION OF RADIOLOGY Provider, Mike Delgado [facility] - 06/17/2024 * * *Final Report* [...] Unremarkable. IMPRESSION IMPRESSION: No acute radiographic abnormality. Toll Settlement Clerk: [facility] Transcribe Date/Time: Jun 17 2024 2:33P Dictated by : BRAYAN LILLY DO This examination was interpreted and the report reviewed and electronically signed by: BRAYAN LILLY DO on Jun 17 2024 2:34PM EST [facility] Radiology Study observation (narrative) [facility] XR Chest PA and LateralOrder ed By: Ccf Provider on 06-17-2024 [facility] COVID-19, MOLECULARon 2024 SARS-CoV-2 (COVID-19) Ab IA Ql Not detected Normal Not Detected [facility] Comment on above: Result Comment: Test ing was performed using the [employer] ID NOW COVID-19 assay on the ID NOW platform. This test has not been approved for use in asymptomatic patients and its performance in this patient population has not been evaluated. Negative results do not rule out the presence of SARS-CoV-2/COVID-19. MR/BMS.BPon 06-04-2024 MR/BMS.BP [address], [address] [place] [address] OFFICE VISIT Date of Service: 06/04/24 MR#: [id number] Acct: [id number] Name: REUBEN SAPP Rep #: [id number] : 1975 Provider: KRISTIAN monroe Age/Sex: 49/M Location: [facility] [place] Status: Signed Intake Vital Signs 05/05/24 10:32 [...] Behavior MS (more content not included)... Normal [facility] MR/BMS.BPon 05-05-2024 MR/BMS.BP [facility] [address] [facility], [address] [place] [address] OFFICE VISIT Date of Service: 05/05/24 MR#: [id number] Acct: [id number] Name: REUBEN SAPP Rep #: [id number] : 1975 Provider: KRISTIAN monroe Age/Sex: 49/M Location: [facility] Status: Signed Intake Vital Signs 03/24/24 10:20 [...] Is in therapy every 2 weeks in [facility] where they focus on LBGTQ+ community [...] x3 M (more content not included)... Normal [facility] DENZEL SCREENING W TOMOon 04-13 DENZEL SCREENING W YESSENIA * * *Final Report* * * DATE OF EXAM: Apr 13 2024 4:21PM ELLA 0582 - DENZEL SCREENING W YESSENIA / PROCEDURE REASON: screen * * * * Physician Interpretation * * * * [place] [id number] #[id number] - DENZEL SCREENING W YESSENIA HISTORY: Patient [...] Jossie Soliman M.D. Electronically signed on: 04/14/2024 Toll Settlement Clerk: FELICIANO Transcribe Date/Time: Apr 13 2024 4:04P Dictated by : JOSSIE SOLIMAN MD This examination was interpreted and the report reviewed and electronically signed by: JOSSIE SOLIMAN MD on Apr 14 2024 12:32PM EST [id number] Normal [facility] Absolute lymphocyte countOrd ered By: Nashelizabeth Geller on 02-08-2023 Lymphocytes Auto (Unsp spec) [#/Vol] 2.33 10*3/uL 0.83-4.51 [facility] Basophil percentageOrdered B y: Nash Geller on 02-08-2023 Basophils/100 WBC (Bld) 1.5 % 0-1 [facility] Bilirubin [Mass/Vol] 0.20 mg/dL 0.20-1.00 [facility] Comment on above: For patients on eltr ombopag therapy, use of Dimension Boelus TBIL is not recommended. Chloride [Moles/Vol] 107 mmol/L 98-107 [facility] Eosinophils/100 WBC (Bld) 4.0 % 0-5 [facility] Glucose [Mass/Vol] 105 mg/dL 74-106 [facility] Comment on above: Fasting Glucose resu lt from 100 to 125 mg/dL suggests IMPAIRED HOMEOSTASIS per A.D.A. criteria. Neutrophils (Bld) [#/Vol] 4.5 10*3/uL 2.0-7.7 [facility] Neutrophils/100 WBC (Bld) 55.7 % 47-70 [facility] Potassium [Moles/Vol] 3.7 mmol/L 3.5-5.1 [facility] Protein [Mass/Vol] 7.2 g/dL 6.4-8.2 [facility] Sodium [Moles/Vol] 135 mmol/L 136-145 [facility] WBC (Bld) [#/Vol] 8.0 10*3/uL 4.4-11.0 [facility] Blood erythrocytes count (nu mber/volume)Ordered By: Nash Geller on 02-08-2023 RBC (Bld) [#/Vol] 4.55 10*6/uL 4.6-6.2 [facility] Blood hemoglobin measurement (mass/volume)Ordered By: Nash Geller on 02-08-2023 Hemoglobin (Bld) [Mass/Vol] 14.0 g/dL 13.0-16.5 [facility] Blood lymphocytes/100 leukoc ytesOrdered By: Nash Geller on 02-08-2023 Lymphocytes/100 WBC (Bld) 29.1 % 19-41 [facility] Blood monocytes/100 leukocyt esOrdered By: Nashelizabeth Geller on 02-08-2023 Monocytes/100 WBC (Bld) 9.2 % 0-10 [facility] Blood platelet mean volumeOr dered By: Nash Geller on 02-08-2023 Platelet mean volume (Bld) [Entitic vol] 9.0 fL 6.2-12.0 [facility] Determination of erythrocyte mean corpuscular volume (MCV)Ordered By: Nash Geller on 02-08-2023 MCV (RBC) [Entitic vol] 92.1 fL 80-94 [facility] Glucose Glucometer (BldC) [M ass/Vol]Ordered By: Nash Geller on 02-08-2023 Glucose [Mass/Vol] 118 mg/dL 74-106 [facility] Comment on above: MANAGEMENT OF PATIEN T CARE PER NURSING PROTOCOL Hematocrit Auto (Bld) [Volum e fraction]Ordered By: Nash Geller on 02-08-2023 Hematocrit (Bld) [Volume fraction] 41.9 % 40-54 [facility] - Chemistry and C hemistry - challengeOrdered By: Nashelizabeth Geller on 02-08-2023 ALP [Catalytic activity/Vol] 97 U/L 45-117 [facility] ALT [Catalytic activity/Vol] 34 U/L 16-61 [facility] CO2 [Moles/Vol] 23.0 mmol/L 21.0-32.0 [facility] Globulin (S) [Mass/Vol] 3.5 g/dL 2.2-4.2 [facility] Urea nitrogen/Creatinine [Mass ratio] 17.0 mg/mg 10-20 [facility] - Hematology and Cell countsOrdered By: Nash Geller on 02-08-2023 Erythrocyte distribution width (RBC) [Entitic vol] 46.0 fL 35.1-43.9 [facility] Erythrocyte distribution width (RBC) [Ratio] 13.4 % 11.6-14.6 [facility] Immature granulocytes/100 WBC (Bld) 0.500 % 0.0-0.9 [facility] Comment on above: IG% - Immature Granu locytes (promyelocytes, myelocytes and metamyelocytes) > 1% indicates that a LEFT SHIFT is Present. MCH (RBC) [Entitic mass] 30.8 pg 27.0-32.0 [facility] Nucleated RBC/100 WBC (Bld) [Ratio] 0 % 0-5 [facility] MCHC Auto (RBC) [Mass/Vol]Or dered By: Nash Geller on 02-08-2023 MCHC (RBC) [Mass/Vol] 33.4 g/dL 32-36 [facility] No Panel InformationOrdered By: Nash Geller on 02-08-2023 Estimated Creatinine Clearance Calc 78.81 ml/min [facility] Estimated GFR (MDRD) Amer 95 mL/min >60 [facility] Comment on above: GFR Calc Estimated GFR (MDRD) Non-Af Amer 79 mL/min >60 [facility] Comment on above: Non- GFR Calc Platelets bldOrdered By: Nash Geller on 02-08-2023 Platelets (Bld) [#/Vol] 311 10*3/uL 150-450 [facility] Serum or plasma albumin latasha urement (mass/volume)Ordered By: Nash Geller on 02-08-2023 Albumin [Mass/Vol] 3.7 g/dL 3.2-5.0 [facility] Serum or plasma albumin/glob ulin mass ratioOrdered By: Nashelziabeth Geller on 02-08-2023 Albumin/Globulin [Mass ratio] 1.1 {ratio} 0.9-2.4 [facility] Serum or plasma calcium latasha urement (mass/volume)Ordered By: Nash Geller on 02-08-2023 Calcium [Mass/Vol] 8.9 mg/dL 8.5-10.1 [facility] Serum or plasma creatinine m easurement (mass/volume)Ordered By: Nash Geller on 02-08-2023 Creatinine [Mass/Vol] 1.06 mg/dL 0.70-1.30 [facility] Comment on above: The validity of the calculated GFR & GFRAA in patients over 70 years has not been determined. Clinical correlation is essential. Serum or plasma urea nitroge n measurement (mass/volume)Ordered By: Nash Geller on 02-08-2023 Urea nitrogen [Mass/Vol] 18 mg/dL 7-18 [facility] Thin prep Papanicolaou smear with manual screeningOrdered By: Nashelizabeth Geller on 02-08-2023 Thin prep Papanicolaou smear with manual screening 14 U/L 15 [facility] Thin prep Papanicolaou smear with manual screening 5 5-15 [facility] FINGERLTon [address] [address] XRay Report Signed Patient Name: Reuben Paz Re cord #: [id number] Date of : 1975 Account #:[id number] Age/Sex: 47 / M Location: [facility] Attending physician: Susie Rinaldi CNP Ordering [...] Sandhu MD Signed By: 05/01/22 1142 DD/ 113 TD/TT: 05/01/221138 Toll Settlement Clerk: MICHAEL Exam/Order Verified? Y Exam Explained to Patient/Family? Y Was Patient Shielded? N Is Patient ? Consent Form Completed? Hx Last Menstrual Period: Does Patient have a Diabetic Device? No Diabetic Device Type: Was the Diabetic Device Removed? If NO: was Removal Consent form completed? Verified by Technologist:[id number] Comment: [id number] cc: Susie Rinaldi, RAIL GANG SUPERVISOR PCP,No Normal [facility] US ABDOMEN RENALon US ABDOMEN RENAL Patient [...] Evan Knutson MD On: 08/09/2020 4:23 PM [facility] Covid-19 Priorityon 08-06-19 21 Inpatient Comment [facility] Comment on above: Order Comment: Testi ng performed at: [CB] [facility], [address] [place] [address], [address], , Rocket Motor Mechanic: Ryan Resendez, PhD Testing performed at: [COCIN] [employer] [facility], [address] [facility] [place], [address], , Rocket Motor Mechanic: Guru Valle MD Reported Source: NASAL SWAB Reported Clinical Info Relevant to Order: SRC:NASAL SWAB Swisher Order: [id number] Result Comment: Rece ived Novel Coronavirus (Covid-19) , NAAon 08-05-2020 SARS-CoV-2, JOSH Not Detected Normal Not Detected [facility] Comment on above: Order Comment: Testi ng performed at: [] [facility], [address] [place], [address], , Rocket Motor Mechanic: Ryan Resendez, PhD Testing performed at: [COCIN] [facility], [address] [facility], [place], [address], , Rocket Motor Mechanic: Guru Valle MD Reported Source: NASAL SWAB Reported Clinical Info Relevant to Order: SRC:NASAL SWAB Swisher Order: [id number] Result Comment: This nucleic acid amplification test was developed and its performance characteristics determined by [employer]. Nucleic acid amplification tests include RT- PCR [...] results FINAL SURGICAL PATHOLOGY REPORT 1. NETTIE: [id number] Testing performed at [facility], [address] [place] [address] Host Order: [id number] DIAGNOSIS: 1. COLON, TWO POLYPS DESCENDING, BIOPSY: [...] formalin, in a container labeled Reuben Carreno, [facility] 1975, #1-two polyps in descending colon. The specimen is retrieved from an included filter device. The specimen consists of two mcneil fragments ranging in size from 0.3 to 0.6 centimeters. The specimen is submitted in a single cassette. 2. The specimen is received in formalin, in a container labeled Reuben Carreno, [facility] 1975, #2-sigmoid colon polyp. The specimen consists of four mcneil fragments ranging in size from 0.2 to 0.3 centimeters. The specimen is submitted in a single cassette. Electronically Signed by HUNTER Tate MD 04/05/2020 16:32 Billing Codes: 1. B-03053 (x2), B-22455 (x2) [facility] Comment on above: Order Comment: NETTIE: [id number] Testing performed at [facility], [address] [place] [address] Host Order: [id number] Novel Coronavirus (Covid-19) , NAAon 03-25-2020 SARS-CoV-2, JOSH Not Detected Normal Not Detected [facility] Comment on above: Order Comment: Testi ng performed at: [TG] [facility], [address] [place], [address], , Rocket Motor Mechanic: Vanita Pope Reported Source: NASAL SWAB Reported Clinical Info Relevant to Order: SRC:NASAL SWAB Swisher Order: [id number] Result Comment: This nucleic acid amplification test was developed and its performance characteristics determined by [employer]. Nucleic acid amplification tests include PCR and [...] Edward Canchola MD On: 03/21/2020 10:26 AM [facility] Hemoglobin A1Con 01-13-2020 HbA1c (Bld) [Mass fraction] 103 mg/dL Normal [facility] Comment on above: Order Comment: Testi ng performed at [facility], [address] [place] [address] Swisher Order: [id number] HbA1c (Bld) [Mass fraction] 5.2 % Normal 4.0-6.0 [facility] Comment on above: Order Comment: Testi ng performed at [facility], [address] [place] [address] Swisher Order: [id number] Result Comment: The [place] [employer] recommends that the goal of therapy should be a Hemoglobin A1C of <7% and that the physician should recommend the treatment regimen in patients with values consistently >8%. Lipid Profileon 01-13-2020 Cholesterol [Mass/Vol] 224 mg/dL High 0-200 [facility] Comment on above: Order Comment: Testi ng performed at [facility], [address] [place] [address] Swisher Order: [id number] Result Comment: Refe rence ranges recommended by the National Cholesterol Education Program <200 Desirable 200-239 Borderline High >240 High Cholesterol in HDL [Mass/Vol] 54 mg/dL Normal [facility] Comment on above: Order Comment: Testi ng performed at [facility], [address] [place] [address] Swisher Order: [id number] Result Comment: <40 Major risk factor in CHD for males <50 Major risk factor in CHD for females >60 Negative risk factor for males and females Cholesterol in LDL [Mass/Vol] 130 mg/dL Normal [facility] Comment on above: Order Comment: Testi ng performed at [facility], [address] [place] [address] Swisher Order: [id number] Result Comment: <100 Optimal 100-129 Near optimal/above optimal 130-159 Borderline High 160-189 High >190 Very high LDL-C values may be decreased when the Triglycerides are >200. Cholesterol.total/Chol esterol in HDL [Mass ratio] 4.1 {ratio} Normal 3.9-4.7 [facility] Comment on above: Order Comment: Testi ng performed at [facility], [address] [place] [address] Swisher Order: [id number] Result Comment: Ifrah clarke Heart Disease Risk: Male Female Risk 3.4 3.3 0.5 x Average 5.0 4.4 1.0 x Average 9.6 7.1 2.0 x Average 13.5 11.0 3.0 x Average Hours Fasting? patient not fasting per doctors orders Normal [facility] Comment on above: Order Comment: Testi ng performed at [facility], [address] [place] [address] Swisher Order: [id number] Triglyceride [Mass/Vol] 200 mg/dL High 0-150 [facility] Comment on above: Order Comment: Testi ng performed at [facility], [address] [place] [address] Swisher Order: [id number] Result Comment: Refe rence ranges recommended by the National Cholesterol Education Program. <150 Normal <200 Normal in a Non-fasting specimen* 150-199 Borderline High 200-499 High >=500 Very High *Triglyceride values >200 in a non-fasting specimen, recommend repeat testing after an 8-12 hour fast. VLDL, Calculated 40 mg/dL High 7-32 [facility] Comment on above: Order Comment: Testi ng performed at [facility], [address] [place] [address] Swisher Order: [id number] Vital Signs Date Time Vital Sign Value Performing Clinician Facility 10-16-2024 10:37-0400 Body height 167.6 cm Opal Kenny APRN, CNP Work Phone: [employer] Work Phone: 10-16-2024 10:37-0400 Body temperature 97.5 [degF] Opal Kenny APRN, CNP Work Phone: [employer] Work Phone: 10-16-2024 10:37-0400 Body weight 96.8 kg Opal Kenny APRN, CNP Work Phone: [employer] Work Phone: 10-16-2024 10:37-0400 Diastolic blood pressure 88 mm[Hg] Opal Kenny APRN, CNP Work Phone: [employer] Work Phone: 10-16-2024 10:37-0400 Heart rate 71 /min Opal Kenny APRN, CNP Work Phone: [employer] Work Phone: 10-16-2024 10:37-0400 Respiratory rate 16 /min Opal Grace PARRISH,RAIL GANG SUPERVISOR Work Phone: [employer] Work Phone: 10-16-2024 10:37-0400 SaO2% (BldA) [Mass fraction] 97 % Opal Queenblanc SHIVANI,RAIL GANG SUPERVISOR Work Phone: [employer] Work Phone: 10-16-2024 10:37-0400 Systolic blood pressure 122 mm[Hg] Opal Grace PARRISH,LULU Work Phone: [employer] Work Phone: 07-09-2024 16:12-0500 Body mass index (BMI) [Ratio] 33.78 kg/m2 Minerva Mejía-Femi PERSONAL CARE ASSISTANT.RAIL GANG SUPERVISOR Work Phone: [facility] 07-09-2024 16:12-0500 Body temperature 97.59 [degF] Minerva Praisler-Wood PERSONAL CARE ASSISTANT.RAIL GANG SUPERVISOR Work Phone: [facility] 07-09-2024 16:12-0500 Body weight 97.5 kg Minerva Marquezler-Femi PERSONAL CARE ASSISTANT.RAIL GANG SUPERVISOR Work Phone: [facility] 07-09-2024 16:12-0500 Diastolic blood pressure 85 mm[Hg] Minerva Praisler-Wood PERSONAL CARE ASSISTANT.RAIL GANG SUPERVISOR Work Phone: [facility] 07-09-2024 16:12-0500 Heart rate 67 /min Minerva Praracqueller-Wood PERSONAL CARE ASSISTANT.RAIL GANG SUPERVISOR Work Phone: [facility] 07-09-2024 16:12-0500 Respiratory rate 18 /min Minerva Praisler-Wood PERSONAL CARE ASSISTANT.RAIL GANG SUPERVISOR Work Phone: [facility] 07-09-2024 16:12-0500 SaO2% (BldA) [Mass fraction] 100 % Minerva Mejía-Femi PERSONAL CARE ASSISTANT.RAIL GANG SUPERVISOR Work Phone: [facility] 07-09-2024 16:12-0500 Systolic blood pressure 133 mm[Hg] Minerva Praracqueller-Wood PERSONAL CARE ASSISTANT.RAIL GANG SUPERVISOR Work Phone: [facility] 07-04-2024 11:28-0500 Body mass index (BMI) [Ratio] 33.92 kg/m2 Emely Armand PERSONAL CARE ASSISTANT.RAIL GANG SUPERVISOR Work Phone: [facility] 07-04-2024 11:28-0500 Body temperature 97.11 [degF] Emely Armand PERSONAL CARE ASSISTANT.RAIL GANG SUPERVISOR Work Phone: [facility] 07-04-2024 11:28-0500 Body weight 97.9 kg Emely Armand PERSONAL CARE ASSISTANT.RAIL GANG SUPERVISOR Work Phone: [facility] 07-04-2024 11:28-0500 Diastolic blood pressure 84 mm[Hg] Emely Armand PERSONAL CARE ASSISTANT.RAIL GANG SUPERVISOR Work Phone: [facility] 07-04-2024 11:28-0500 Heart rate 78 /min Emely Armand PERSONAL CARE ASSISTANT.RAIL GANG SUPERVISOR Work Phone: [facility] 07-04-2024 11:28-0500 Respiratory rate 16 /min Emely Armand PERSONAL CARE ASSISTANT.RAIL GANG SUPERVISOR Work Phone: [facility] 07-04-2024 11:28-0500 SaO2% (BldA) [Mass fraction] 99 % Emely Armand PERSONAL CARE ASSISTANT.RAIL GANG SUPERVISOR Work Phone: [facility] 07-04-2024 11:28-0500 Systolic blood pressure 118 mm[Hg] Emely Armand PERSONAL CARE ASSISTANT.RAIL GANG SUPERVISOR Work Phone: [facility] 07-02-2024 13:24-0500 Body mass index (BMI) [Ratio] 34.02 kg/m2 Holden Rogers MD Work Phone: [facility] 07-02-2024 13:24-0500 Body temperature 98.2 [degF] Holden Rogers MD Work Phone: [facility] 07-02-2024 13:24-0500 Body weight 98.2 kg Holden Rogers MD Work Phone: [facility] 07-02-2024 13:24-0500 Diastolic blood pressure 86 mm[Hg] Holden Rogers MD Work Phone: [facility] 07-02-2024 13:24-0500 Heart rate 67 /min Holden Rogers MD Work Phone: [facility] 07-02-2024 13:24-0500 Respiratory rate 18 /min Holden Rogers MD Work Phone: [facility] 07-02-2024 13:24-0500 SaO2% (BldA) [Mass fraction] 99 % Holden Rogers MD Work Phone: [facility] 07-02-2024 13:24-0500 Systolic blood pressure 128 mm[Hg] Holden Rogers MD Work Phone: [facility] 06-17-2024 14:11-0500 Body mass index (BMI) [Ratio] 32.98 kg/m2 Myesha Angel PERSONAL CARE ASSISTANT.RAIL GANG SUPERVISOR Work Phone: [facility] 06-17-2024 14:11-0500 Body temperature 98.2 [degF] Myesha Angel PERSONAL CARE ASSISTANT.RAIL GANG SUPERVISOR Work Phone: [facility] 06-17-2024 14:11-0500 Body weight 95.2 kg Myesha Angel PERSONAL CARE ASSISTANT.RAIL GANG SUPERVISOR Work Phone: [facility] 06-17-2024 14:11-0500 Diastolic blood pressure 100 mm[Hg] Myesha Angel PERSONAL CARE ASSISTANT.RAIL GANG SUPERVISOR Work Phone: [facility] 06-17-2024 14:11-0500 Heart rate 78 /min Myesha Angel PERSONAL CARE ASSISTANT.RAIL GANG SUPERVISOR Work Phone: [facility] 06-17-2024 14:11-0500 Respiratory rate 20 /min Myesha Angel PERSONAL CARE ASSISTANT.RAIL GANG SUPERVISOR Work Phone: [facility] 06-17-2024 14:11-0500 SaO2% (BldA) [Mass fraction] 98 % Myesha Ortiz PERSONAL CARE ASSISTANT.RAIL GANG SUPERVISOR Work Phone: [facility] 06-17-2024 14:11-0500 Systolic blood pressure 148 mm[Hg] Myesha Ortiz PERSONAL CARE ASSISTANT.RAIL GANG SUPERVISOR Work Phone: [facility] 02-08-2023 16:17-0400 Body height 170.18 cm [facility] 02-08-2023 16:17-0400 Body mass index (BMI) [Ratio] 31.7 kg/m2 [facility] 02-08-2023 16:17-0400 Body weight 91.85 kg [facility] 02-08-2023 15:45-0400 Body temperature 96.5 [degF] [facility] 02-08-2023 15:45-0400 Diastolic blood pressure 96 mm[Hg] [facility] 02-08-2023 15:45-0400 Heart rate 77 /min [facility] 02-08-2023 15:45-0400 Respiratory rate 18 /min [facility] 02-08-2023 15:45-0400 SaO2% (BldA) [Mass fraction] 99 % [facility] 02-08-2023 15:45-0400 Systolic blood pressure 139 mm[Hg] [facility] Encounters Encounter Date Encounter Type Care Provider Facility Start: 04-23-2025 ambulatory [facility] Start: 03-31-2025 End: 03-31-2025 ambulatory Keke Jackson Facility:[facility] Start: 03-29-2025 End: 03-29-2025 [facility] Start: 03-29-2025 End: 03-29-2025 ambulatory MAGALISAIBONITOLINA JACKSON Facility:[facility] Start: 03-29-2025 End: 03-29-2025 Emergency department patient visit KEKE JACKSON Facility:[facility] Start: 03-19-2025 End: 03-19-2025 ambulatory Aranza Patterson Facility:[facility] Start: 03-01-2025 End: 03-01-2025 ambulatory Aspen Montgomery Facility:[facility] Start: 02-12-2025 ambulatory Efewongbe Oleghe Facili ty:[facility] Start: 01-15-2025 End: 01-15-2025 ambulatory Efewongbe Oleghe Facility:[facility] Start: 01-14-2025 ambulatory Efewongbe Olehermane Facili ty:[facility] Start: 01-12-2025 End: 01-12-2025 ambulatory JAZLYN BELLO Facility:[facility] Start: 01-01-2025 End: 01-01-2025 ambulatory Magalisonglina Beltrane Facility:[facility] Start: 12-31-2024 ambulatory Efewongbe Olehermane Facili ty:[facility] Start: 12-31-2024 End: 12-31-2024 ambulatory Efjoviongbe Williamse Facility:[facility] Start: 12-28-2024 End: 12-28-2024 [facility] Start: 12-18-2024 End: 12-18-2024 ambulatory Keke Beltrane Facility:[facility] Start: 12-18-2024 End: 12-18-2024 ambulatory jovilohnlina Beltrane Facility:[facility] Start: 12-09-2024 End: 12-09-2024 ambulatory Efjovionglina Olehermane Facility:[facility] Start: 11-06-2024 End: 11-06-2024 Emergency department patient visit Rakesh Jewell Facility:[facility] Start: 11-06-2024 End: 11-06-2024 Patient encounter procedure Buddy Temple APRN.RAIL GANG SUPERVISOR Work Phone: [facility] Comment on above: Chest pain, unspecif ied type (Primary Dx) Start: 11-06-2024 End: 11-06-2024 ambulatory MARTI BELTRANE Facility:[facility] Start: 11-05-2024 Encounter for genera l adult medical examination without abnormal findings marti Beltrane [facility] Start: 11-04-2024 End: 11-04-2024 ambulatory Efjovilohnlina Beltrane Facility:[facility] Start: 10-30-2024 End: 10-30-2024 ambulatory [facility] Facility:[facility] Start: 10-30-2024 End: 10-30-2024 ambulatory [facility] Facility:[facility] Start: 10-16-2024 End: 10-16-2024 Office outpatient visit 25 minutes Opal Kenny APRN, CNP Work Phone: [facility] Comment on above: Gender dysphoria (Pr imary Dx); Hair thinning Start: 10-13-2024 End: 10-13-2024 ambulatory [facility] Start: 09-10-2024 End: 09-10-2024 ambulatory [facility] Facility:[facility] Start: 08-26-2024 End: 08-26-2024 ambulatory [facility] Start: 07-16-2024 End: 07-16-2024 ambulatory [facility] Facility:[facility] Start: 07-10-2024 End: 07-10-2024 ambulatory [facility] Start: 07-09-2024 End: 07-09-2024 ambulatory [facility] Facility:[facility] Start: 07-09-2024 End: 07-09-2024 Office outpatient visit 15 minutes Minerva Easton APRN.CNP Work Phone: [facility] Comment on above: Acute right-sided lo w back pain with right-sided sciatica (Primary Dx) Start: 07-06-2024 End: 07-06-2024 ambulatory [facility] Start: 07-05-2024 End: 07-05-2024 ambulatory Yuko Ross RN NURSE FENCE BUILDER Comment on above: Syncope Start: 07-05-2024 End: 07-05-2024 Emergency department patient visit JAZLYN BELLO Facility:[facility] Start: 07-04-2024 End: 07-04-2024 ambulatory [facility] Facility:[facility] Start: 07-04-2024 End: 07-04-2024 Patient encounter procedure Emely Acuna APRN.RAIL GANG SUPERVISOR Work Phone: [facility] Comment on above: URI with cough and c ongestion (Primary Dx); Flu-like symptoms; Wheezing Start: 07-02-2024 End: 07-02-2024 Office outpatient visit 25 minutes Holden Roegrs MD Work Phone: [facility] Comment on above: Acute cough (Primary Dx) Start: 07-02-2024 End: 07-02-2024 ambulatory BRENT CROCKER Facility:[facility] Start: 07-02-2024 End: 07-02-2024 Subsequent hospital visit by physician Xr [facility] Analisa Work Phone: Radiology Comment on above: Acute cough [R05.1] Start: 06-17-2024 End: 06-17-2024 Subsequent hospital visit by physician Xr [facility] Analisa Work Phone: Radiology Comment on above: Acute cough [R05.1] Start: 06-17-2024 End: 06-17-2024 ambulatory [facility] Facility:[facility] Start: 06-17-2024 End: 06-17-2024 Patient encounter procedure Myesha Ortiz APRN.RAIL GANG SUPERVISOR Work Phone: [facility] Comment on above: URI, acute (Primary Dx); Acute cough; History of asthma Start: 06-15-2024 End: 06-15-2024 ambulatory TIANNA GALLITO [facility] Start: 06-04-2024 End: 06-04-2024 ambulatory No Primary Care Physician Facility:[facility] Start: 05-05-2024 End: 05-05-2024 ambulatory No Primary Care Physician Facility:[facility] Start: 04-13-2024 ambulatory OPAL MAK acility:[facility] Start: 04-13-2024 End: 04-13-2024 Subsequent hospital visit by physician Screen Mammo [facility] Comment on above: z12.31 Start: 12-11-2023 End: 12-11-2023 ambulatory BRENT CROCKER [facility] Ambulatory Start: 08-23-2023 End: 08-23-2023 Office outpatient visit 25 minutes Opal Kenny APRN,RAIL GANG SUPERVISOR Work Phone: [facility] Comment on above: Gender dysphoria (Pr imary Dx); Hair thinning Start: 05-02-2023 End: 05-02-2023 ambulatory PANKAJ Garcia [facility] Start: 2023 End: 2023 Office outpatient visit 15 minutes Opal Kenny APRN, CNP Work Phone: [facility] Comment on above: Gender dysphoria (Pr imary Dx) Start: 02-08-2023 End: 02-08-2023 Emergency department patient visit [facility] Work Phone: Start: 11-21-2022 End: 11-21-2022 Office outpatient visit 25 minutes Opal Kenny APRN, CNP Work Phone: [facility] Comment on above: Gender dysphoria (Pr imary Dx) Start: 08-22-2022 End: 08-22-2022 Office outpatient visit 25 minutes Opal Kenny APRN, CNP Work Phone: [facility] Comment on above: Gender dysphoria (Pr imary Dx) Start: 2022 End: 2022 ambulatory No PCP Facility:[facility] Start: 2022 End: 2022 ambulatory No PCP [facility] Work Phone: Start: 2022 End: 2022 Patient encounter procedure No PCP [facility] Procedures Date Procedure Procedure Detail Performing Clinician Start: 07-02-2024 Radiologic exam ches t 2 views Holden Rogers MD Work Phone: Start: 06-17-2024 Radiologic exam ches t 2 views Myesha Ortiz APRN.RAIL GANG SUPERVISOR Work Phone: Start: 2022 Plain X-ray of finger N o PCP Plan of Treatment Date Care Activity Detail Author Start: 10-19-[address] [facility] Start: 10-19-2031 Urine microalbumin profile DTaP,Tdap,Td Vaccine (4 - Td or Tdap) [facility] Start: 04-08-2028 Screening for malign ant neoplasm of colon [employer] Start: 08-23-2027 Diabetes Screening Diabetes Screenin g [facility] Start: 05-22-2027 Diabetes Screening Diabetes Screenin g [facility] Start: 12-10-2026 Diabetes Screening Diabetes Screenin g [facility] Start: 04-13-2026 Screening for malign ant neoplasm of breast Breast Cancer Screening (Mammogram) [employer] Start: 10-16-2025 Hypertension screening Hyperte nsion Screening (#1) [employer] Start: 10-16-2025 Tobacco Screening Tobacco Screening [employer] Start: 08-22-2025 Diabetes mellitus screening Diabetes Screening [employer] Start: 01-18-2025 Influenza vaccination [facility] Start: 01-16-2025 Depression Monitoring Depression Mon [facility] [employer] Start: 10-17-2024 End: 10-16-2025 Assay of estradiol ASSAY OF TOTAL ESTRADIOL Routine Lab Routine Gender dysphoria Expected: 10/17/2024, Expires: 10/16/2025 [employer] Work Phone: Comment on above: Expected: 10/17/2024 , Expires: 10/16/2025 Start: 10-17-2024 End: 10-16-2025 Assay of testosterone total ASSAY OF TESTOSTERONE TOTAL Routine Lab Routine Gender dysphoria Expected: 10/17/2024, Expires: 10/16/2025 [employer] Phone: Comment on above: Expected: 10/17/2024 , Expires: 10/16/2025 Start: 10-17-2024 End: 10-16-2025 Comprehensive metabolic panel COMPREHENSIVE METABOLIC PANEL Routine Lab Routine Gender dysphoria Expected: 10/17/2024, Expires: 10/16/2025 [employer] Phone: Comment on above: Expected: 10/17/2024 , Expires: 10/16/2025 Start: 07-31-2024 Diabetes mellitus screening Diabetes Screening [employer] Start: 02-07-2024 Hepatitis C screening Hepatitis C Sc [facility] [employer] Comment on above: Postponed from 05/01 (Patient declines) Start: 02-07-2024 Screening for malign ant neoplasm of colon Colorectal Cancer Screening [employer] Comment on above: Postponed from 05/01 (Pending outside records) Start: 02-07-2024 Thyroid stimulating hormone measurement TSH Monitoring [employer] Comment on above: Postponed from 05/01 (Pending outside records) Start: 02-07-2024 Tobacco Screening Tobacco Screening [employer] Start: 02-01-2024 Diabetes mellitus screening Diabetes Screening [employer] Start: 01-19-2024 Covid-19 Vaccine ( season) Covid-19 Vaccine () [facility] Start: 01-19-2024 Influenza vaccination [employer] Start: 11-22-2023 Depression Monitoring Depression Mon [facility] Start: 11-14-2023 Diabetes mellitus screening Diabetes Screening [employer] Start: 08-24-2023 End: 08-20-2024 Assay of estradiol ASSAY OF TOTAL ESTRADIOL Lab Routine Gender dysphoria Expected: 08/24/2023, Expires: 08/20/2024 [employer] Work Phone: Comment on above: Expected: 08/24/2023 , Expires: 08/20/2024 Start: 08-24-2023 End: 08-20-2024 Assay of testosterone total ASSAY OF TESTOSTERONE TOTAL Lab Routine Gender dysphoria Expected: 08/24/2023, Expires: 08/20/2024 [facility] Phone: Comment on above: Expected: 08/24/2023 , Expires: 08/20/2024 Start: 08-24-2023 End: 08-20-2024 Comprehensive metabolic panel COMPREHENSIVE METABOLIC PANEL Lab Routine Gender dysphoria Expected: 08/24/2023, Expires: 08/20/2024 [employer] Work Phone: Comment on above: Expected: 08/24/2023 , Expires: 08/20/2024 Start: 05-08-2023 Depression Monitoring Depression Mon [place] Start: 05-08-2023 Hepatitis B vaccination Imm-He patitis B (1 of 3 - 3-dose series) [employer] Comment on above: Postponed from 05/01 (Patient declines) Start: 05-08-2023 HIV Screening HIV Screening [employer] Comment on above: Postponed from 05/01 (Patient declines) Start: 2023 Imm-Zoster, Recombin ant (1 of 2) Imm-Zoster, Recombinant (1 of 2) [employer] Start: 2023 Screening for malign ant neoplasm of breast Breast Cancer Screening (Mammogram) [employer] Start: 2023 Shingrix Vaccine (1 of 2) Shingrix Vaccine (1 of 2) [facility] Start: 02-21-2023 End: 05-24-2023 Assay of estradiol ASSAY OF TOTAL ESTRADIOL Lab Routine Gender dysphoria Expected: 02/21/2023, Expires: 05/24/2023 [employer] Work Phone: Comment on above: Expected: 02/21/2023 , Expires: 05/24/2023 Start: 02-21-2023 End: 05-24-2023 Assay of testosterone total ASSAY OF TESTOSTERONE TOTAL Lab Routine Gender dysphoria Expected: 02/21/2023, Expires: 05/24/2023 [facility] Phone: Comment on above: Expected: 02/21/2023 , Expires: 05/24/2023 Start: 02-21-2023 End: 05-24-2023 Comprehensive metabolic panel COMPREHENSIVE METABOLIC PANEL Lab Routine Gender dysphoria Expected: 02/21/2023, Expires: 05/24/2023 [facility] Phone: Comment on above: Expected: 02/21/2023 , Expires: 05/24/2023 Start: 01-19-2023 Hypertension screening Hyperte nsion Screening (#1) [employer] Start: 01-18-2023 Influenza vaccination Imm-Influenza (#1) [employer] Start: 08-23-2022 End: 12-22-2022 Assay of estradiol ASSAY OF TOTAL ESTRADIOL Lab Routine Gender dysphoria Expected: 08/23/2022, Expires: 12/22/2022 [facility] Phone: Comment on above: Expected: 08/23/2022 , Expires: 12/22/2022 Start: 08-23-2022 End: 12-22-2022 Assay of testosterone total ASSAY OF TESTOSTERONE TOTAL Lab Routine Gender dysphoria Expected: 08/23/2022, Expires: 12/22/2022 [facility] Work Phone: Comment on above: Expected: 08/23/2022 , Expires: 12/22/2022 Start: 08-23-2022 End: 12-22-2022 Comprehensive metabolic panel COMPREHENSIVE METABOLIC PANEL Lab Routine Gender dysphoria Expected: 08/23/2022, Expires: 12/22/2022 [employer] Work Phone: Comment on above: Expected: 08/23/2022 , Expires: 12/22/2022 Start: 05-20-2022 Screening for substa nce abuse Alcohol and Drug Screen [facility] Start: 04-20-2022 Depression Monitoring Depression [facility] Start: 06-14-2021 Hlf-POOBU-40 (4 - Booster for Pfizer series) Dfb-KDJKB-84 (4 - Booster for Pfizer series) [facility] Start: 06-14-2021 Ibn-YFDSM-49 (4 - Pf izer series) Shl-DQTAU-09 (4 - Pfizer series) [facility] Start: 2018 Screening for malign ant neoplasm of colon [facility] Start: 2008 Lipid panel Lipid Screening [facility] Start: 1992 Hepatitis B vaccination Imm-He patitis B (1 of 3 - 19+ 3-dose series) [facility] Start: 1992 Hepatitis B Vaccine (1 of 3 - 19+ 3-dose series) Hepatitis B Vaccine (1 of 3 - 19+ 3-dose series) [facility] Start: 1991 Anxiety Screening Anxiety Screening [facility] Start: 1991 Depression Screening Depression Scre tabitha [facility] Start: 1991 Hepatitis C screening Hepatitis C Sc moira [facility] Start: 1991 HIV screening HIV Screening [facility] Start: 1988 HIV Screening HIV Screening [facility] Start: 1988 Relationship Safety Screening/Counseling Relationship Safety Screening/Counseling [facility] Start: 1983 Diabetes mellitus screening Diabetes Screening [facility] Start: 1973 Anxiety Screening Anxiety Screening [facility] Start: 1973 Hepatitis B vaccination Imm-He luistis B (1 of 3 - 3-dose series) [facility] Start: 1973 Hepatitis C screening Hepatitis C Sc reening [facility] Start: 1973 Lipid panel Lipid Screening [facility] Start: 1973 Thyroid stimulating hormone measurement TSH Monitoring [facility] COVID & INFLUENZA A/ B & RSV PCR, ROUTINE COVID & INFLUENZA A/B & RSV PCR, ROUTINE Microbiology Routine URI with cough and congestion Ordered: 07/04/2024 [facility] Work Phone: Comment on above: Ordered: 07/04/2024 Patient Education [facility] Work Phone: Patient referral [facility] Work Phone: [facility] Immunizations Immunization Date Immunization Notes Care Provider Fa ofelia 02-19-2022 influenza virus vaccine, unspecified formulation Opal Kenny APRN, CNP Work Phone: [facility] Work Phone: 01-23-2022 influenza, injectabl e, quadrivalent, preservative free Opal Kenny APRN, CNP Work Phone: [facility] Work Phone: 01-23-2022 PNEUMOCOCCAL CONJUGA TE PCV 20 Opal Kenny APRN, CNP Work Phone: [facility] Work Phone: 10-18-2021 tetanus toxoid, redu geovani diphtheria toxoid, and acellular pertussis vaccine, adsorbed Opal Kenny APRN, CNP Work Phone: [facility] Work Phone: 01-24-2021 influenza, injectabl e, quadrivalent, preservative free Opaljack Kenny PERSONAL CARE ASSISTANT,RAIL GANG SUPERVISOR Work Phone: [employer] Work Phone: 01-26-2020 influenza, injectabl e, quadrivalent, preservative free Opal Kenny PERSONAL CARE ASSISTANT,RAIL GANG SUPERVISOR Work Phone: [employer] Work Phone: 02-21-2019 influenza, injectabl e, quadrivalent, preservative free Opal Kenny PERSONAL CARE ASSISTANT,RAIL GANG SUPERVISOR Work Phone: [facility] Work Phone: 02-22-2018 influenza, injectabl e, quadrivalent, preservative free Opal Kenny PERSONAL CARE ASSISTANT,RAIL GANG SUPERVISOR Work Phone: [employer] Work Phone: 06-08-2017 influenza, injectabl e, quadrivalent, preservative free Opal Kenny PERSONAL CARE ASSISTANT,RAIL GANG SUPERVISOR Work Phone: [employer] Work Phone: 01-04-2016 influenza, seasonal, injectable, preservative free Opal Kenny PERSONAL CARE ASSISTANT,RAIL GANG SUPERVISOR Work Phone: [employer] Work Phone: 03-04-2015 influenza, seasonal, injectable, preservative free Opal Kenny PERSONAL CARE ASSISTANT,RAIL GANG SUPERVISOR Work Phone: [facility] Work Phone: 04-21-2013 influenza virus vaccine, unspecified formulation Opal Kenny PERSONAL CARE ASSISTANT,RAIL GANG SUPERVISOR Work Phone: [employer] Work Phone: 04-21-2013 influenza virus vaccine, whole virus Opal Kenny PERSONAL CARE ASSISTANT,RAIL GANG SUPERVISOR Work Phone: [facility] 02-20-2013 measles, mumps and rubella virus vaccine Opal Kenny PERSONAL CARE ASSISTANT,RAIL GANG SUPERVISOR Work Phone: [facility] Work Phone: 04-26-2010 diphtheria, tetanus toxoids and acellular pertussis vaccine, unspecified formulation Opal Queenblanc SHIVANIRAIL GANG SUPERVISOR Work Phone: [facility] Work Phone: 04-26-2010 tetanus toxoid, redu geovani diphtheria toxoid, and acellular pertussis vaccine, adsorbed [facility]al [facility] Work Phone: [facility] [employer] Work Phone: Payers Date Payer Category Payer Private Health Insurance MMO SUP ERMED PPO [id number] 2023 Unknown MMO MMO SUPERMED PPO [id number] 2023-Present [phone] [address] [place] [address] PPO [id number] 2023 Private Health Insurance [id number] 2023 Unknown [id number] 2022 Private Health Insurance [id number] 2022 Private Health Insurance [id number] 2022 Self-pay 2022 Worker's Compensation [id number] 2021 Unknown [employer]ICAL M[employer] O F [facility] [id number] 2021-Present [phone] [address] [address] [place] [address] Indemnity [id number] 2020 Private Health Insurance [id number] [id number] 1973 Unknown [id number] 2.16.840.1.368288.3.579.2. 903 1973 Unknown [id number] 2.16.840.1.126195.3.579.2. 903 1973 Unknown [id number] 2.16.840.1.735295.3.579.2. 903 1973 Unknown [id number] 2.16.840.1.525383.3.579.2. 903 1973 Unknown [id number] 2.16.840.1.320349.3.579.2. 903 1973 Unknown [id number] 2.16.840.1.369123.3.579.2. 903 1973 Unknown [id number] 2.16.840.1.486413.3.579.2. 903 1973 Unknown [id number] 2.16.840.1.386868.3.579.2. 1249 1973 Unknown [id number] 2.16.840.1.144801.3.579.2. 903 Unknown [id number] Unknown ANTHEM [id number] Unknown [id number] 2.16.840.1.491603.3.579.2. 1186 Unknown [id number] 2.16.840.1.547292.3.579.2. 462 Unknown [id number] 2.16.840.1.265852.3.579.2. 462 Unknown [id number] 2.16.840.1.880245.3.579.2. 462 Unknown [id number] 2.16.840.1.906475.3.579.2. 462 Unknown [id number] 2.16.840.1.664968.3.579.2. 462 Unknown [id number] 2.16.840.1.483079.3.579.2. 462 Unknown [id number] 2..840.1.199616.3.579.2. 462 Unknown [id number] 2..840.1.179984.3.579.2. 462 Unknown [id number] 2.16.840.1.577911.3.579.2. 462 Unknown [id number] 2.16.840.1.824786.3.579.2. 462 Unknown [id number] 2.16.840.1.219298.3.579.2. 462 Unknown [id number] 2..840.1.035815.3.579.2. 462 Unknown [id number] 2.16.840.1.684046.3.579.2. 462 Unknown [id number] 2.16.840.1.106844.3.579.2. 462 Unknown [id number] 2.16.840.1.799730.3.579.2. 462 Unknown [id number] 2.16.840.1.693377.3.579.2. 462 Unknown [id number] 2.16.840.1.059272.3.579.2. 462 Unknown [id number] 2.16.840.1.100853.3.579.2. 462 Unknown [id number] 2.16.840.1.805466.3.579.2. 462 Unknown [id number] 2.16.840.1.469219.3.579.2. 462 Unknown [id number] 2.16.840.1.696837.3.579.2. 462 Unknown [id number] 2.16.840.1.440220.3.579.2. 462 Unknown [id number] 2.16.840.1.591572.3.579.2. 462 Unknown [id number] 2.16.840.1.903786.3.579.2. 462 Social History Date Type Detail Facility [facility] Work Phone: Start: 1975 Sex Assigned At Male F [facility] Start: 01-19-2022 End: 06-17-2024 Tobacco smoking status NHIS Never smoked tobacco [facility] Phone: Start: 01-19-2022 End: 06-17-2024 Tobacco use and exposure Smokeless tobacco non-user [facility] Phone: Start: 01-19-2022 End: 10-16-2024 Alcohol intake Lifetime non-drinker (finding) [facility] Phone: Start: 08-17-2022 End: 04-13-2024 History of Social function [facility] Phone: Start: 08-17-2022 End: 04-13-2024 Social Connections [employer] Start: 11-18-2019 Social Connections a nd Isolation 2 [employer] Start: 02-08-2023 Tobacco [facility] if ever smoked [facility] Start: 1975 Sex assigned at Not on file [facility] History of tobacco use Passive smoker [facility] Mental Status Date Assessment Result Facility 02-08-2023 Cognitive function Awake;Alert;Appropriat e [facility] Work Phone: Clinical Notes 08-22-2022 to 03-29-2025 Buddy Temple APRN.RAIL GANG SUPERVISOR - 11/06/2024 5:22 PM Surekha Kenny APRN,LULU - 10/16/2024 12:29 PM BREEZYTRadha Washington MA - 10/16/2024 11:00 AM EDElkin Kenny APRN,LULU - 10/16/2024 11:00 AM EDT Note Date & Type Note Facility 03-29-2025 Note HNO ID: [id number] Author: HOLDEN ROGERS MD Service: ? Author Type: Physician Type: Progress Notes Filed: 03/29/2025 14:14 Note Text: URGENT CARE [facility] Reuben Carreno is a 49 year old male. Patient presents with: Low Back Pain: right side with bodyaches x 2 days Back pain: Duration: initially had all over the body aches 2 days ago, yesterday localized to the right lower back Location: right lower back Character: aching and sharp Radiation: down the right leg to the foot Aggravating: bending Relieving: resting, may have improved with voiding bladder or moving bowels Pain relievers: Motrin Associated: Urinary frequency, right leg weakness, tingling in the bottom of the right foot, intermittent episodes of feeling like he cannot breathe (suspects anxiety) Pertinent negatives: Denies incontinence, fever He has a history of hematuria at baseline, history of overactive bladder versus interstitial cystitis, and history of sciatica. Denies history of kidney stones. No family history of kidney stones. The history is provided by the patient. Review of Systems Constitutional: Positive for fatigue. Negative for fever. HENT: Negative for congestion and sore throat. Respiratory: Positive for shortness of breath. Cardiovascular: Negative for chest pain. Gastrointestinal: Negative for abdominal pain, blood in stool, constipation, diarrhea, nausea and vomiting. Bowel movements have been formed but in smaller pieces than normal Genitourinary: Positive for frequency and hematuria (No visible blood). Negative for dysuria. Musculoskeletal: Positive for arthralgias, back pain and myalgias. Neurological: Positive for weakness and numbness. Negative for dizziness, light-headedness and headaches. Objective BP 122/78 Pulse 70 Temp 36.7 ?C (98 ?F) Resp 16 Wt 98 kg (216 lb 0.8 oz) SpO2 97% BMI 33.95 kg/m? Physical Exam Constitutional: Appearance: He is diaphoretic. HENT: Nose: No congestion. Mouth/Throat: Mouth: Mucous membranes are moist. Pharynx: No oropharyngeal exudate or posterior oropharyngeal erythema. Eyes: Extraocular Movements: Extraocular movements intact. Conjunctiva/sclera: Conjunctivae normal. Pupils: Pupils are equal, round, and reactive to light. Cardiovascular: Rate and Rhythm: Normal rate and regular rhythm. Heart sounds: No murmur heard. Pulmonary: Effort: No respiratory distress. Breath sounds: No wheezing, rhonchi or rales. Abdominal: General: There is no distension. Palpations: Abdomen is soft. There is no mass. Tenderness: There is no abdominal tenderness. Musculoskeletal: Cervical back: Neck supple. Lumbar back: Tenderness (Right greater than left lumbar paraspinal discomfort with palpation) present. No bony tenderness. Normal range of motion. Positive right straight leg raise test. Lymphadenopathy: Cervical: No cervical adenopathy. Neurological: Mental Status: He is alert and oriented to person, place, and time. Cranial Nerves: No cranial nerve deficit. Gait: Gait normal. Deep Tendon Reflexes: Reflexes normal. Reflex Scores: Patellar reflexes are 2+ on the right side and 2+ on the left side. Achilles reflexes are 1+ on the right side and 1+ on the left side. Psychiatric: Mood and Affect: Mood is anxious. Speech: Speech normal. Behavior: Behavior normal. Cognition and Memory: Cognition is not impaired. Memory is not impaired. {ASSESSMENT/PLAN: 1. Acute right-sided back pain with sciatica - ICD9: 724.3, ICD10: M54.41 (primary diagnosis) 2. Myalgias - ICD9: 729.1, ICD10: M79.10 3. Microscopic hematuria - ICD9: 599.72, ICD10: R31.29 4. SOB (shortness of breath) - ICD9: 786.05, ICD10: R06.02 - UA DIP, URINE (POC) - moderate blood. No LE, nitrite, or protein. - BACTERIAL CULTURE, URINE Right lumbar radicular pain with typical distribution. Red flags include generalized myalgia/arthralgia, shortness of breath, weakness. I recommended lab and imaging may be indicated to rule out renal calculus, pyelonephritis, appendicitis, discitis, aortic aneurysm. He will go to [place] ED for further evaluation. Holden Rogers MD History and Record Review External record(s) reviewed: prior labs/imaging. Findings from review of prior labs/imaging: No renal calculi on CT scans 2019 and 2022 Differential Diagnoses - Right low back pain with sciatica - Renal calculi - Pyelonephritis - Appendicitis/diverticulitis - Abdominal aortic aneurysm Disposition The patient was transferred to ED (private vehicle, report called to [facility] ED). Procedures [facility] 11-06-2024 Note HNO ID: [id number] Author: BUDDY TEMPLE APRN.RAIL GANG SUPERVISOR Service: ? Author Type: Nurse Practitioner Type: [...] Patient agreeable and wants to take himself. [facility] 11-06-2024 History of Present illness Narrative Patient [...] to take himself. documented in this encounter [facility] 10-16-2024 History of Present illness Narrative Associated [...] increase spironolactone today Patient connected with in [place]. - patient today reports not seen in 3 months has felt good and reports they got to a point where things just weren't going anywhere. Went to a group therapy for trans women in [place] and found it somewhat helpful, motivated to [...] Department Center 01/13/2025 9:00 AM Opal Kenny APRN,RAIL GANG SUPERVISOR [facility] & Physical Exam Review of [...] Mood normal. Rooming Note: Reuben presents to [facility] today for Gender Affirming Hormone Therapy Since [...] increase spironolactone today Patient connected with in [place]. - patient today reports not seen in 3 months has felt good and reports they got to a point where things just weren't going anywhere. Went to a group therapy for trans women in [place] and found it somewhat helpful, motivated to go back Plan: Change dose/Add new med Order labs Increase spironolactone to 100mg daily Follow up and labs in 3 months documented in this encounter [employer] Work Phone: 10-16-2024 Miscellaneous Notes Healthy Eating [...] nutrition is scarce. documented in this encounter [facility] Phone: 10-13-2024 Note DATE: 10/14/2024 CHIEF COMPLAINT: [...] Procedure: COLONOSCOPY; Surgeon: Dago Davis MD; Location: [facility]; Service: General Surgery COLONOSCOPY W/ POLYPECTOMY 2019 [place] COLONOSCOPY W/ POLYPECTOMY 11/10/2011 CYSTO CYSTO EGD N/A 10/16/2022 Procedure: ESOPHAGOGASTRODUODENOSCOPY WITH BIOPSY, ENDO FLIP AND SHEA CHIP PLACEMENT; Surgeon: Dago Davis MD; Location: [facility]; Service: General Surgery MULTIPLE TOOTH EXTRACTIONS 10/25/2022 with cyst excision PROLONGED ACID REFLUX TEST 48H PH N/A 10/16/2022 Procedure: PROLONGED ACID REFLUX TEST 48H PH; Surgeon: Dago Davis MD; Location: Endo; Service: General Surgery SH Social History [1] [...] and Dx with IC followed up in [place] about 3 years ago and was told [...] up 3 sam (more content not included)... [facility] 08-26-2024 Note OFFICE VISIT JEREMY Hobbs NOTE Here today for Leg Pain (Bilateral leg pain and generalized body aches x 3-4 weeks. ( Patient is having issues falling asleep)) JERRELL Tellez is complaining of leg pain, generalized weakness [...] 07/10/2024 and placed on azithromycin continued with Ryna Marley This has resolved The following portions [...] can place a referral Talk to your behavorial health provider about using amitriptyline for this Also consider flexeril if we can't use that If you fine a car refinisher at the [facility] to see for this I can place a referral We talked little bit about fibromyalgia Recommended treatment would be to start with physical therapy and consider using something like amitripty (more content not included)... [facility] 07-10-2024 Note OFFICE VISIT JEREMY Hobbs [...] using Flonase can be helpful or using Espy mist nasal spray And then something for the cough, zbwf-cjo-ragqykm like NyQuil DayQuil, or Robitussin or Mucinex are all acceptable. Taking zinc up to 50 mg daily if it started early on in the illness has been shown to slightly decrease the length of time that you have the cold. Another study showed that eating [employer]'s chicken soup was as good as most medications to help with the common cold. For prevention of colds The #1 best thing is frequent handwashing Second would be the use of a airport traffic controller to be sure that the utensils that go in your mouth are washed with very hot water And third would be zinc, those who took 30 to 50 mg daily for 5 months prior to cold seasons had fewer colds Relevant Medications azithromycin (Z-DAIJA) 5 day dose pack (more content not included)... [facility] 07-09-2024 Instructions Minerva Easton APRN.RAIL GANG SUPERVISOR - 07/09/2024 4:54 PM EST ASSESSMENT/PLAN: 1. [...] or bowel control. documented in this encounter [facility] 07-09-2024 Note HNO ID: [id number] Author: MINERAV EASTON APRN.RAIL GANG SUPERVISOR Service: ? Author Type: Nurse Practitioner Type: [...] he passed out. Pt reports going to [place] [facility] to be evaluated, which he was [...] Discussed expected course of illness TEACHING PROVIDER (Physician/PA/PERSONAL CARE ASSISTANT) NOTE OF PERSONAL INVOLVEMENT IN CARE: I have personally seen and examined the patient and performed the medical decision-making components. I have reviewed the Advanced Practice Registered Nurse (PERSONAL CARE ASSISTANT) Student's documentation and verified the findings in the note as w (more content not included)... [facility] 07-09-2024 History of Present illness Narrative Subjective [...] he passed out. Pt reports going to [place] ER to be evaluated, which he was [...] Discussed expected course of illness TEACHING PROVIDER (Physician/PA/PERSONAL CARE ASSISTANT) NOTE OF PERSONAL INVOLVEMENT IN CARE: I have personally seen and examined the patient and performed the medical decision-making components. I have reviewed the Advanced Practice Registered Nurse (PERSONAL CARE ASSISTANT) Student's documentation and verified the findings in the note as written. Any additions or changes are noted in bold/italics. Signature: Minerva Easton Date: 07/09/2024 Time: 5:07 PM documented in this encounter [facility] 07-06-2024 Note Patient: Reuben Carreno : 1975 Date: 07/06/24 This 49 y.o. adult presents for No chief complaint on file. Video Visit [facility] [address] [facility] [address] [facility] [phone] Video Visit [facility] 07/06/2024 Tianna Salcido CNP Provider Location: [facility] office Patient Location Entry Level Manufacturing Engineer: None Patient Location: Patient's Home Video Visit [...] there are inherent diagnostic limitations compared to [id number]-sx-[id number] evaluations. We elected to proceed with the video visit telemedicine consultation. History of Present Illness: His daughter is repeating what he is whispering because he has lost his voice. Started with a cough on Saturday, 7 days ago. Saturday saw the nurse at work. Then went to [facility] was told was viral. Got x-ray to rule out pneumonia. He had wheezing. Was given Tessalon perles. He also took Robitussin. He is producing a lot of phlegm, it is green. (Dry now) Was coughing very often during the night. Maybe 40 times. Saw doctor again because the throat was really irritated. Was online from [facility]. [facility]. [...] He called another nurse line on Saturday morning-[facility]. Was told to go to emergency room. [...] problem, so he went back to the [facility]. He wanted us to have the [...] Procedure: COLONOSCOPY; Surgeon: Dago Davis MD; Location: [facility]; Service: General Surgery COLONOSCOPY W/ POLYPECTOMY 2019 [place] COLONOSCOPY W/ POLYPECTOMY 11/10/2011 CYSTO CYSTO EGD N/A 10/16/2022 Procedure: ESOPHAGOGASTRODUODENOSCOPY WITH BIOPSY, ENDO FLIP AND SHEA CHIP PLACEMENT; Surgeon: Dago Davis MD; Location: [facility]; Service: General Surgery MULTIPLE TOOTH EXTRACTIONS 10/25/2022 with cyst excision PROLONGED ACID REFLUX TEST 48H PH N/A 10/16/2022 Procedure: PROLONGED ACID REFLUX TEST 48H PH; Surgeon: Dago Davis MD; Location: [facility]; Service: General Surgery Family History: Family History [...] Drug use: Not Currently Social Drivers of Lockdown Networks (more content not included)... [facility] 07-05-2024 Telephone encounter Note Reason for Call: Patient stated he lost consciousness after a coughing attack from [id number] today, his cough is worse today, and had a head injury resulting in new bruise on his head. Outcome: Patient confirmed he will seek transport to [facility] now and was advised to call 911, if needed. Reason for Disposition Any head or face injury Protocols used: Wdginscz-TYJAW-IV [facility] 07-05-2024 Miscellaneous Notes Reason for Call: Patient stated he lost consciousness after a coughing attack from [phone] today, his cough is worse today, and had a head injury resulting in new bruise on his head. Outcome: Patient confirmed he will seek transport to [facility] now and was advised to call 911, if needed. Reason for Disposition Any head or face injury Protocols used: Utpgwxeu-XBPMR-DR documented in this encounter [facility] 07-04-2024 Note SARS-COV-2 (AGENT OF COVID-19) RNA: Not detected INFLUENZA A RNA: Not detected INFLUENZA B RNA: Not detected RESPIRATORY SYNCYTIAL VIRUS (RSV) RNA: Not detected [facility] Comment on above: Performed By: #### 9 [id number] ####[facility] [id number] [place] [id number] [place] [facility] 07-04-2024 Instructions Emely Acuna APRN.LULU - 07/04/2024 11:56 AM EST Tessalon Perles [...] inability to swallow. documented in this encounter [facility] 07-04-2024 Note HNO ID: [id number] Author: EMELY ACUNA APRN.LULU Service: ? Author Type: Nurse Practitioner Type: Progress Notes Filed: 07/04/2024 11:56 Note Text: Subjective The history is provided by the patient. No speech language therapist was used. HPI Reuben Carreno is a [...] have confirmed and edited as necessary, the [facility] Review of Systems Constitutional: Positive for [...] detail warranting prompt ER evaluation. Emely Acuna APRN.[facility] 07-04-2024 History of Present illness Narrative Subjective The history is provided by the patient. No speech language therapist was used. HPI Reuben Carreno is a [...] have confirmed and edited as necessary, the [facility] Review of Systems Constitutional: Positive for [...] detail warranting prompt ER evaluation. Emely Acuna APRN.LULU documented in this encounter [facility] 07-02-2024 History of Present illness Narrative Radiology [...] PATIENT PRESENTS WITH AN IMPLANTABLE OR ATTACHED DIETARY SUPERVISOR: No RADIOLOGY DEPARTMENT: General X-ray: Exam(s) Completed: Chest X-Ray PERIPHERAL IV DATA: Not applicable SIGNED BY: Charlotte Mason July 02, 2024 1:50 PM documented in this encounter [facility] 07-02-2024 Note HNO ID: [id number] Author: CIRSSY VALERA Tech Service: ? Author Type: Technologist [...] PATIENT PRESENTS WITH AN IMPLANTABLE OR ATTACHED DIETARY SUPERVISOR: No RADIOLOGY DEPARTMENT: General X-ray: Exam(s) Completed: Chest X-Ray PERIPHERAL IV DATA: Not applicable SIGNED BY: Charlotte Mason July 02, 2024 1:50 PM [facility] 07-02-2024 Note HNO ID: [id number] Author: HOLDEN ROGERS MD Service: ? Author [...] Reactions Fluvoxamine Other: See Comments Hypertension Nitrofurantoin [place]* Other: See Comments Hypertension Latex, Natural Rubb* [...] or late onset fever. Holden Rogers MD [facility] 07-02-2024 History of Present illness Narrative Patient [...] Reactions Fluvoxamine Other: See Comments Hypertension Nitrofurantoin [place]* Other: See Comments Hypertension Latex, Natural Rubb* [...] Holden Rogers MD documented in this encounter [facility] 06-17-2024 History of Present illness Narrative Radiology [...] PATIENT PRESENTS WITH AN IMPLANTABLE OR ATTACHED DIETARY SUPERVISOR: No RADIOLOGY DEPARTMENT: General X-ray: Exam(s) Completed: Chest X-Ray PERIPHERAL IV DATA: Not applicable SIGNED BY: Charlotte Mason June 17, 2024 2:23 PM documented in this encounter [facility] 06-17-2024 Note HNO ID: [id number] Author: CRISSY VALERA Tech Service: ? Author [...] PATIENT PRESENTS WITH AN IMPLANTABLE OR ATTACHED DIETARY SUPERVISOR: No RADIOLOGY DEPARTMENT: General X-ray: Exam(s) Completed: Chest X-Ray PERIPHERAL IV DATA: Not applicable SIGNED BY: Charlotte Mason June 17, 2024 2:23 PM [facility] 06-17-2024 Note HNO ID: [id number] Author: MYESHA ORTIZ APRN.LULU Service: ? Author Type: Nurse Practitioner [...] HFA 90 MCG/ACTUATION AEROSOL INHALER Myesha Ortiz APRN.[facility] 06-17-2024 History of Present illness Narrative Subjective [...] HFA 90 MCG/ACTUATION AEROSOL INHALER Myesha Ortiz APRN.RAIL GANG SUPERVISOR documented in this encounter [facility] 06-15-2024 Note Patient: Reuben Carreno : 1975 [...] then to 15 bid. Rubi Vizcarra from [facility], prescribes. He has called their office [...] Procedure: COLONOSCOPY; Surgeon: Dago Davis MD; Location: [facility]; Service: General Surgery COLONOSCOPY W/ POLYPECTOMY 2019 [place] COLONOSCOPY W/ POLYPECTOMY 11/10/2011 CYSTO CYSTO EGD N/A 10/16/2022 Procedure: ESOPHAGOGASTRODUODENOSCOPY WITH BIOPSY, ENDO FLIP AND SHEA CHIP PLACEMENT; Surgeon: Dago Davis MD; Location: [facility]; Service: General Surgery MULTIPLE TOOTH EXTRACTIONS 10/25/2022 with cyst excision PROLONGED ACID REFLUX TEST 48H PH N/A 10/16/2022 Procedure: PROLONGED ACID REFLUX TEST 48H PH; Surgeon: Dago Davis MD; Location: [facility]; Service: General Surgery Family History: Family History [...] min Stress: No Stress Concern Present (06/15/2024) [place] of Occupational Health - Occupational Stress Questionnaire Feeling of Stress : Not at all Social Connections: Moderately Integrated (06/15/2024) Social Connection and Isolation Panel [NHANES] Frequency of Communication with Friends and Family: Twice a week Frequency of Social Gatherings with Friends and Family: Twice a week Attends Gnosticism Services: More than 4 times per year [...] (2 mg tota (more content not included)... [facility] 04-13-2024 History of Present illness Narrative Radiology [...] PATIENT PRESENTS WITH AN IMPLANTABLE OR ATTACHED DIETARY SUPERVISOR: No RADIOLOGY DEPARTMENT: Mammography PERIPHERAL IV DATA: Not applicable SIGNED BY: RT Peggy(R) April 13, 2024 4:22 PM documented in this encounter [facility] 04-13-2024 Note HNO ID: [id number] Author: CAMILA EMERY RT(R) Service: ? Author [...] PATIENT PRESENTS WITH AN IMPLANTABLE OR ATTACHED DIETARY SUPERVISOR: No RADIOLOGY DEPARTMENT: Mammography PERIPHERAL IV DATA: Not applicable SIGNED BY: RT Peggy(R) April 13, 2024 4:22 PM [facility] 12-11-2023 Note OFFICE VISIT JEREMY [...] continues to be followed by clinic in [place] for his gender dysphoria Currently taking Estradiol [...] CBC and Differential (more content not included)... [facility] 08-23-2023 History of Present illness Narrative Images [...] facial appearance, genitals Mental Health: Psychologist is oNra Wakefield ,and Simran Viveros: last visit was [...] dose today. Patient is still working in [place], family is now living with patient in [place], and daughter/family are not supportive, patient feels [...] the visit: Rooming Note: Reuben presents to [employer] [facility] today for Gender Affirming Hormone Therapy (Pt [...] Additional persons on the call: no one Wine Steward/Stewardess used/present: No. HIV testing offered: Yes STI testing offered: Yes Associated Problem(s): Gender dysphoria Images from the original note were not included. Gender Affirming Care - Follow-Up Visit: Name Reuben Gender Identity questioning Pronouns darius 08/21/2023 1:07 PM 2023 11:59 PM [facility] [...] dose today. Patient is still working in [place], family is now living with patient in [place], and daughter/family are not supportive, patient feels trapped between self and family. We discussed restarting estradiol low dose and or increasing spironolactone, patient would like to restart Estrace for now. Plan: Continue same management plan Continue meds as previously prescribed Order labs Restart Estradiol 2 mg daily Cont spironolactone to 50mg daily Follow up and labs in 3 months documented in this encounter [facility] Phone: 08-21-2023 Miscellaneous Notes Healthy Eating 101 [...] on line and in the community: Online: [facility] for Trans Health: http://transhealth.[facility]/trans?page =home Primary Care Protocols (medical guidelines for taking care of trans people) http://transhealth.[facility]/trans?page =guidelines-home Feminizing Therapy: http://transhealth.[facility]/trans?page =mskkngjemk-hbceqdtvyh-yfvpfdo Video for Feminizing Therapy: https://www.PlayWithube.com/watch?v=GJEix- i5pmE Masculinizing Therapy: http://transhealth.[facility]/trans?page =qdjhtctqzy-qhqivugzecboq-zswkygj Video for Masculinizing Therapy: https://www.PlayWithube.com/watch?v=GAJZ4f wTuyc&feature=youtu.be Community Resources: [place]: http://www.trans[place].org/ Legal Assistance/ Name and Gender Marker Change: https://Nibu/our-services /osjjsw-kypfctsjr-fgtw/legal-clinics/ Gender Marker & Name Change Guide Find instructions for changing your name and gender marker on identity documents and other records for each [facility]. https://Nibu/our-services /qqcnkp-imwuusdfu-vuty/udocya-hunjbu-w tpz-lykmtj-bnsdp/ documented in this encounter [facility] Phone: 2023 Miscellaneous Notes Healthy Eating 101 [...] on line and in the community: Online: [facility] for Trans Health: http://transhealth.[facility]/trans?page =home Primary Care Protocols (medical guidelines for taking care of trans people) http://transhealth.[facility]/trans?page =guidelines-home Feminizing Therapy: http://transhealth.[facility]/trans?page =wtjbddxoio-pguirdwoxx-zimcjlu Video for Feminizing Therapy: https://www.PlayWithube.com/watch?v=GJEix- i5pmE Masculinizing Therapy: http://transhealth.[facility]/trans?page =wcfszjowre-jobpmbdzbebqg-yymopat Video for Masculinizing Therapy: https://www.PlayWithube.com/watch?v=GAJZ4f wTuyc&feature=youtu.be Community Resources: [place]: http://www.trans[place].org/ Legal Assistance/ Name and Gender Marker Change: https://Nibu/our-services /rvrgwt-gyvsozjgr-ypnp/legal-clinics/ Gender Marker & Name Change Guide Find instructions for changing your name and gender marker on identity documents and other records for each [facility]. https://Gnarus Systems.Shicon/our-services /butrba-lmmcspwcz-nqtr/tltzzu-ntabke-n zkl-xsurcw-begad/ You might get an email asking you to complete a survey about your visit today. We hope you will take a few minutes and answer some questions about your experience. Your responses let us know what is working well and where we can improve. The email will come from [employer], which is the company that sends out our patient surveys. Thank you for your feedback and trusting us with your care. documented in this encounter [facility] Phone: 2023 History of Present illness Narrative [...] states that she is still working in [place], family stayed in [place] [facility] [place] [facility], she is living in [place] for work and visits family on the [...] Department Center 08/08/2023 2:30 PM Opal Kenny APRN,RAIL GANG SUPERVISOR [facility] Physical Exam Review of [...] Mood normal. Rooming Note: Reuben presents to [employer] [facility] today for Gender Affirming Hormone Therapy Since [...] Additional persons on the call: no one Wine Steward/Stewardess used/present: No. HIV testing offered: declined STI [...] states that she is still working in [place], family stayed in [place], she is living in [place] for work and visits family on the [...] in 3 months documented in this encounter [facility] Phone: 02-08-2023 Discharge summary Note Date/Time February 08, 2023 4:44pm [facility] Medical Records Department [address] [place] [id number] Emergency Department Summary 02/08/23 MR#: [id number] Acct: [id number] Name: REUBEN SAPP Rep #: [id number] : 1975 47 From: Nash Geller MD [...] chemical/fumes while at work. 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 His medications have not changed. One of [...] reaction tohis medication. Patient's physician affiliated with [facility]. There are no records at [facility] or laboratory results performed prior to this visit at [facility]. Lab Data Attestation: I reviewed [...] % (Auto) 55.7 Lymph % (Auto) 29.1 [place] % (Auto) 9.2 Eos % (Auto) 4.0 [...] your Primary Care Provider. Call [facility] ([phone]) or report to the closest Emergency Room. Call 911 if necessary. 02/08/230 <Electronically signed by Nash Geller MD> Cosigner Signature (if applicable): CC: BRENT CROCKER ~ Signed [facility] Work Phone: [phone]) 762-248007-05-2023 Miscellaneous Notes* Patient Instructions - Opal Kenny APRN,LULU - 11/21/2022 7:19 AM EDT You might get an email asking you to complete a survey about your visit today. We hope you will take a few minutes and answer some questions about your experience. Your responses let us know what is working well and where we can improve. The email will come from [employer], which is the company thatsends out our patient surveys. Thank you for your feedback and trusting us with your care.Trans Health Resources There are a number of resources available on line and in the community: Online: [facility] Center of Excellence for Trans Health: http://transhealth.[facility]/trans?page=home Primary Care Protocols (medical guidelines for taking care of trans people) http://transhealth.[facility]/trans?page=guidelines-home Feminizing Therapy: http://transhealth.[facility]/trans?page=cbzwbxgizo-jinelryphn-rqyvvvw Video for Feminizing Therapy: https://www.PlayWithube.com/watch?v=GJEix-i5pmE Masculinizing Therapy: http://transhealth.[facility]/trans?page=torcdwhnxs-jxbsbahpvmopv-ikuxxyf Video for Masculinizing Therapy: https://www.PlayWithube.com/watch?v=FWVI3twVook&feature=youtu.be Community Resources: [place]: http://www.trans[place].org/ Legal Assistance/ Name and Gender Marker Change: https://Nibu/[employer]is [employer]ervices/bdzkzf-mxvjmvdxn-rimc/legal-clinics/ Gender Marker & Name Change Guide Find instructions for changing your name and gender marker on identity documents and other records for each [facility]. https://Nibu/ourWorkshopLiveservices/gyzdpq-vvmrpheiy-hqpq/menbky-iletob-iarm- change-guide/ Feminizing Fact Sheet Estrogen Estrogen should [...] options for Smoking Cessation. [facility] Work Phone: [phone]) [phone] History of Present illness Narrative* Opal Kenny APRN, CNP - 11/21/2022 7:00 AM EDT Images from the original note were not included. Tele-Health Visit Statement [facility] The patient's identity was verified and they have verbally stated that they are currently in the [facility]. The risks, benefits, and alternatives of a realtime synchronous audiovisual consultation were discussed with the patient and/or their guardian and they have given their verbal consent to this tele-health visit. This visit took place via tele-health video visit Additional persons on the call: no one Wine Steward/Stewardess used/present: Not Applicable Chief Complaint / HPI: [...] Plan: Gender Affirming Care - Follow-Up Visit: Kel Tellez Gender Identity questioning Pronouns he 11/21/2022 6:48 [...] (Pt stated [facility] ) Future Appointments Date Time Provider Department Center 02/20/2023 7:30 AM Opal Kenny APRN,[facility] Physical [facility]am Review of [...] previously prescribed Order labs documented in this encounterHer[facility] CampusProf[facility] Work Phone: [phone]) 236-563404-05-2023 Instructions* Patient Instructions* Opal Kenny APRN, CNP [...] on line and in the community: Online: [facility] Center of Excellence for Trans Health: http://transhealth.[facility]/trans?page= Primary Care Protocols (medical guidelines for taking care of trans people) http://transhealth.[facility].edu/trans?page=guidelines-home Feminizing Therapy: http://transhealth.[facility].edu/trans?page=zxosrpntvd-yuwtsztnel-rkrjxzg Video for Feminizing Therapy: https://www.PlayWithube.com/watch?v=GJEix-i5pmE Masculinizing Therapy: http://transhealth.[facility].edu/trans?page=oxlqorztcn-uvqcfmkvvvgab-fwqnjhx Video for Masculinizing Therapy: https://www.PlayWithube.com/watch?v=IDKU9tqDbkx&feature=youtu.be Community Resources: [place]: http://www.trans[place].org/ Legal Assistance/ Name and Gender Marker Change: https://Nibu/our-services/qrgvur-qqvbzarya-inus/legal-clinics/ Gender Marker & Name Change Guide Find instructions for changing your name and gender marker on identity documents and other records for each [facility]. https://Gnarus Systems.com/our-services/nbywme-dnkjhntyq-rhem/zrbnur-yzmkcr-skfm- change-guide/ You might get an email asking you to complete a survey about your visit today. We hope you will take a few minutes and answer some questions about your experience. Your responses let us know what is working well and where we can improve. The email will come from [employer], which is the company thatsends out our patient surveys. Thank you for your feedback and trusting us with your care. [facility] Work Phone: [phone]) [phone] Miscellaneous Notes* Assessment & Plan Note - [...] draw patient reports he was flying from [place], took estradiol at 11pm and lab draw was the next day around 3. 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 Chief Complaint / HPI: Chief [...] draw patient reports he was flying from [place], took estradiol at 11pm and lab draw was the next day around 3. Had a visit with family in [place], and they noticed my breast, butt and [...] and Affect: Mood normal. 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 Hair thinning Alopecia, unspecified documented in this encounter [facility] Phone: Evaluation note* Diagnosis URI, acute- Primary Acute upper respiratory infections of unspecified site Acute cough History of asthma Personal history of other diseases of respiratory system [facility] [place] [facility] Diagnosis Acute cough- Primary Acute cough [facility]* Diagnosis Acute cough [facility] [place] [facility]* Diagnosis URI with cough and congestion- Primary Flu-like symptoms Other general symptoms Wheezing documented [facility] [place] [facility]* Diagnosis Acute right-sided low back pain with right-sided sciatica- Primary [facility] [place] [facility]* Diagnosis Gender dysphoria- Primary Gender identity [...] thinning Alopecia, unspecified documented in this encounter [facility] Phone: Evaluation note* Diagnosis Chest pain, unspecified type- Primary documented in this encounter [facility] Summary Purpose Family History No Family History [...] No February 08, 2023 4:12pm Power of Manager Transport No January 4:12pm Chief Complaint and Reason for Visit Chief Complaint S69.92XD Chief Complaint periods of uncontrol led shaking at HS Health Concerns Assessment Noted Time PHQ-9 Depression Total Score: 022 12:55 PM PDT Assessment Noted Time PHQ-9 Depression Total Score: 023 6:37 AM PDT Assessment Noted Time PHQ-9 Depression Total Score: 08/23/19 24 7:27 AM PDT Assessment Noted Time PHQ-9 Depression Total Score: 10/17/19 25 10:36 AM PDT Additional Source Comments (unrecognized sect ion and content) No Status Records FoundNo Status Records FoundNo Status Records FoundNo Status Records FoundNo Status Records FoundNo Status Records FoundNo Status Records FoundNo Status Records FoundNo Status Records FoundNo Status Records Found INFORMATION SOURCE (unrecogn ized section and content) DATE CREATED AUTHOR 08/08/2020 [facility] DATE CREATED AUTHOR AUTHOR'S ORGANIZ ATION 08/20/2020 [facility] DATE CREATED AUTHOR AUTHOR'S ORGANIZ ATION 05/02/2022 [facility] DATE CREATED AUTHOR AUTHOR'S ORGANIZ ATION 04/16/2024 [facility] DATE CREATED AUTHOR AUTHOR'S ORGANIZ ATION 10/16/2024 [facility] DATE CREATED AUTHOR AUTHOR'S ORGANIZ ATION 01/24/2025 [facility] DATE CREATED AUTHOR AUTHOR'S ORGANIZ ATION 02/26/2025 [facility] DATE CREATED AUTHOR AUTHOR'S ORGANIZ ATION 03/30/2025 [facility] DATE CREATED AUTHOR AUTHOR'S ORGANIZ ATION 04/01/2025 [facility] DATE CREATED AUTHOR AUTHOR'S ORGANIZ ATION [facility] Care Teams (unrecognized sec tion and content) Team Status: Active Member Role Status Dates PANKAJ VIVEROS Family Provider Active No PCP Primary Care Provider Active Team Status: Inactive Member Role Status Dates No PCP Primary Care Provider Active Susie Rinaldi CNP Attending Provider Active Change Management Coordinator Relationship Specialty Start Date End Date Non-[employer], Provider PCP - General Psychiatric Nurse 08/01/21 Change Management Coordinator Relationship Specialty Start Date End Date Non-[employer], Provider PCP - General Psychiatric Nurse 08/01/21 Team Status: Active Member Role Status Dates BRENT CROCKER Primary Care Provider Active Team Status: Inactive Member Role Status Dates Dr. Nash Geller MD Emergency Provider Active LIZZETTE WHELAN Primary Care Provider Active Change Management Coordinator Relationship Specialty Start Date End Date Non-[employer], Provider PCP - General Psychiatric Nurse 08/01/21 Change Management Coordinator Relationship Specialty Start Date End Date Brent Crocker [address] [place] [address] PCP - General Family Medicine, Physician 08/21/23 Change Management Coordinator Relationship Specialty Start Date End Date Brent Crocker MD [address] [place] [address] PCP - General Family Medicine 07/02/24 Change Management Coordinator Relationship Specialty Start Date End Date Brent Crocker MD [address] [place] [address] PCP - General Family Medicine 07/02/24 Change Management Coordinator Relationship Specialty Start Date End Date Brent Crocker MD [address] [place] [address] PCP - General Family Medicine 07/02/24 Change Management Coordinator Relationship Specialty Start Date End Date Brent Crocker MD [address] [place] [address] PCP - General Family Medicine 07/02/24 Change Management Coordinator Relationship Specialty Start Date End Date Brent Crocker MD [address] [facility] [place] [address] PCP - General Family Medicine 07/02/24 Change Management Coordinator Relationship Specialty Start Date End Date Brent Crocker [address] [place] [address] PCP - General Family Medicine, Physician 08/21/23 Change Management Coordinator Relationship Specialty Start Date End Date Keke Jackson MD [address] [place] [address] PCP - General Internal Medicine 11/06/24 Goals [...] or prosecute any alcohol or drug abuse patient.[facility] the event this information is protected by the Federal Confidentiality of Alcohol and Drug Abuse Patient Records regulations: The Federal rules restrict any use of the information to criminally investigate or prosecute any alcohol or drug abuse patient.[facility] the event this information is protected by the Federal Confidentiality of Alcohol and Drug Abuse Patient Records regulations: The Federal rules restrict any use of the information to criminally investigate or prosecute any alcohol or drug abuse patient.[facility] the event this information is protected by the Federal Confidentiality of Alcohol and Drug Abuse Patient Records regulations: The Federal rules restrict any use of the information to criminally investigate or prosecute any alcohol or drug abuse patient.[facility] the event this information is protected by the Federal Confidentiality of Alcohol and Drug Abuse Patient Records regulations: The Federal rules restrict any use of the information to criminally investigate or prosecute any alcohol or drug abuse patient.[facility] the event this information is protected by the Federal Confidentiality of Alcohol and Drug Abuse Patient Records regulations: The Federal rules restrict any use of the information to criminally investigate or prosecute any alcohol or drug abuse patient.[facility] the event this information is protected by the Federal Confidentiality of Alcohol and Drug Abuse Patient Records regulations: The Federal rules restrict any use of the information to criminally investigate or prosecute any alcohol or drug abuse patient.[facility] the event this information is protected by the Federal Confidentiality of Alcohol and Drug Abuse Patient Records regulations: The Federal rules restrict any use of the information to criminally investigate or prosecute any alcohol or drug abuse patient.[facility] the event this information is protected by the Federal Confidentiality of Alcohol and Drug Abuse Patient Records regulations: The Federal rules restrict any use of the information to criminally investigate or prosecute any alcohol or drug abuse patient.[facility] FOR RECORDS PERTAINING TO PATIENTS WHO ARE [...] BE BASED ON THE PRIMARY CLINICAL RECORDS. [facility] [employer] provides no warranty or guarantee of the accuracy or completeness of information in this document.
== END | disposition home or self-care (01) ==
LOC: RAD 11:22
PROVIDERS: PCP Internal Medicine; Referring Provider Physician Assistant; Visit Provider Physician Assistant
DX: M53.3 Sacrococcygeal disorders, not elsewhere classified (principal)
CPT/HCPCS: 72100; 73502

== ENCOUNTER 2025-04-16 13:32 | Outpatient (CLI) | payer OTHER, SELFPAY ==
--- OUTSIDE RECORDS SUMMARY | 2025-04-16 13:36 | XMS RPT_ITS | CCD ---
Author Organization [facility] Care Team Providers Care Jig Borer Name Role Phone PCP, No Primary Care [...] Unavailable Keke Jackson MD Primary Care Provider [phone] OPAL KENNY Admitting Unavailable OPAL KENNY Attending [...] Attending Unavailable Aspen Montgomery Attending Unavailable [facility] Unavail able Oleghe, Efewongbe Primary [...] Primary Care Unavailable Layo Torres Referring Unavailable Laoy Torres Attending Unavailable [facility] Referring Unavail able [facility] Attending Unavail able Oleghe, Efewongbe Primary Care Unavailable Oleghe, Efewongbe Primary Care Unavailable Layo Torres Referring Unavailable Layo Torres Attending Unavailable [facility] Primary Care Unavail able Nash Geller Attending [...] Care Unava ilable Aspen Montgomery Attending Unavailable Salty Adair Attending Unavailabl [...] Propensity to adverse reactions (disorder) 12-11-19 13 [facility] Repository (8 sources) FLUoxetine; Translations: [FLUOXETINE] Drug Allergy 08-16-19 17 Other: See Comments [facility] Phone: (17 sources) fluvoxaMINE; Translations: [FLUVOXAMINE] Drug Allergy 12-07-19 16 Other: See Comments [facility] Phone: (20 sources) Latex; Translations: [LATEX, NATURAL RUBBER] Propensity to adverse reactions to drug 08-14-19 17 Rash [facility] Phone: (20 sources) levoFLOXacin; Translations: [LEVOFLOXACIN] Drug Allergy 01-22-20 14 Anxiety, Mental Status Change, Other: See Comments [facility] Phone: (17 sources) NITROFURANTOIN, MACROCRYSTALS / Nitrofurantoin, Monohydrate; Translations: [NITROFURANTOIN MONOHYD/M-CRYST] Drug Allergy 08-21-19 17 Other: See Comments [facility] Phone: (4 sources) Desvenlafaxine Drug Allergy 01-03-20 16 [facility] Phone: (1 source) Latex Allergy to substance 02-09-20 23 Rash [facility] (1 source) Latex Drug allergy (disorder) 03-31-20 [facility] Repository (1 source) levoFLOXacin Drug Allergy 03-31-20 [facility] Repository Medications Current Medications Medication Drug Class(es) Dates Sig (Normalized) Sig (Original) [id number] 200 actuat albuterol 0.09 mg/actuat metered dose [...] on above: Take 1 Capsule by [facility] once daily esomeprazole 40 mg delayed [...] Discontinued Start: 01-30-2019 take 1 tablet by [facility] once daily L-Methylfolate 15 mg tab [...] 40 mg by mouth polyethylene glycol 3350 81133 mg powder for oral solution (5 sources) [...] aftercare (1 source) Drug therapy finding; Translations: [half-way (current) use of other agents affecting estrogen [...] Vis iton 03-31-2025 Internal Medicine Office Visit [facility] Internal Medicine [address] [place] [address] [place] [address] OFFICE VISIT Date of Service: 03/31/25 MR#: [id number] Acct: [id number] Name: BRANDI CARRENOREUBEN FERNANDEZO Rep #: [id number] : 1975 Provider: CARMENZA Manzano Age/Sex: 49/M Location: [facility] Status: Signed Intake Vital Signs 03/19/25 09:40 [...] pain. Body aches Chief Complaint: back pain Merchandise Support Associate Required: No Accompanied by: Self Is patient [...] of leg all the way to foot [facility] Medical History Blood glucose elevated Encounter to [...] Resp Respirato (more content not included)... Normal [facility] Bacteria Ur Culton Bacteria identified Cx Nom (U) ORGANISM ID: 1 <10,000 CFU/ml Normal urogenital denise Normal [facility] Comment on above: Performed By: #### 6 30-4 ####[facility] LABCLIA [id number] [address] [place] CNOVon 03-29-2025 CNOV Office Visit (WOUCA) REUBEN SAPP ([id number]) 1975 M Date Time Provider Department 03/29/25 [...] discitis, aortic aneurysm. He will go to [facility] for further evaluation. Holden Rogers MD [...] to ED (private vehicle, report called to [facility]). Procedures Allergies As of Date: (more content not included)... Normal [facility] Emergency Department Summary on 03-29-2025 Emergency Department Summary [facility] Medical Records Department [address] [place] [address] Emergency Department Summary 03/29/25 MR#: [id number] Acct: [id number] Name: REUBEN SAPP Rep #: [id number] : 1975 49 From: Salty Adair DO [...] intact Psych: Cooperative, appropriate mood and affect [facility] Medical History Blood glucose elevated Encounter to [...] radiates into (more content not included)... Normal [facility] Urinalysis, Completeon 03-29 RBC 0-5 SEEN Normal 0-5 [facility] Comment on above: Order Comment: CLEAN CATCH Performed By: #### L 400.0001 ####[facility] [address] [place], [place], [id number] BACTERIA 0 SEEN Normal None Seen [facility] Comment on above: Order Comment: CLEAN CATCH Performed By: #### L 400.0001 ####[facility] [address] [place], [address] EPI,SQUAMOUS 0 SEEN Normal 0-5 [facility] Comment on above: Order Comment: CLEAN CATCH Performed By: #### L 400.0001 ####[facility] [address] [place], [address] Mucus Ql (Urine sed) 0 SEEN Normal [facility] Comment on above: Order Comment: CLEAN CATCH Performed By: #### L 400.0001 ####[facility] [address] [place], [address] WBC 0 SEEN Normal 0-5 [facility] Comment on above: Order Comment: CLEAN CATCH Performed By: #### L 400.0001 ####[facility] [address] [place], [address] Internal Medicine Office Vis iton 03-19-2025 Internal Medicine Office Visit [facility] Internal Medicine [address] [place] [address] [place] [address] OFFICE VISIT Date of Service: 03/19/25 MR#: [id number] Acct: [id number] Name: REUBEN SAPP Rep #: [id number] : 1975 Provider: KRISTIAN palafox Age/Sex: 49/M Location: [facility] Status: Signed Intake Vital Signs 03/01/25 [...] you fallen in the past year?: No [facility] Medical History Blood glucose elevated Encounter to [...] this year at an outside facility at [facility]. He states there were no concerns [...] habits, const (more content not included)... Normal [facility] MR/BMS.on 03-01-2025 MR/BMS.BP [place] [address] [facility], [address] [place] [address] OFFICE VISIT Date of Service: 03/01/25 MR#: [id number] Acct: [id number] Name: REUBEN SAPP Rep #: [id number] : 1975 Provider: KRISTIAN monroe Age/Sex: 49/M Location: [facility].BP Status: Signed Intake Vital Signs 01/15/25 09:03 [...] is d (more content not included)... Normal [facility] MR/BMS.BPon 01-15-2025 MR/BMS. [facility] [address] [facility], [address] [place] [address] OFFICE VISIT Date of Service: 01/15/25 MR#: [id number] Acct: [id number] Name: REUBEN SAPP Rep #: [id number] : 1975 Provider: KRISTIAN monroe Age/Sex: 49/M Location: [facility].BP Status: Signed Intake Vital Signs 01/01/25 11:08 [...] - Psyc (more content not included)... Normal [facility] Comprehensive Metabolic Prof ilon 01-12-2025 Albumin [Mass/Vol] 4.2 g/dL Normal 3.5-5.0 [facility] Comment on above: Performed By: #### L 509.3001, L500.4050, L3300.1750 ####[facility] [address] [place], [address] Albumin/Globulin [Mass ratio] 1.4 {ratio} Normal 0.9-2.4 [facility] Comment on above: Performed By: #### L 509.3001, L500.4050, L3300.1750 ####[facility] [address] [place], [address] ALK PHOS 88 U/L Normal 40-129 [facility] Comment on above: Performed By: #### L 509.3001, L500.4050, L3300.1750 ####[facility] [address] [place], [address] ALT [Catalytic activity/Vol] 35 U/L Normal <=46 [facility] Comment on above: Performed By: #### L 509.3001, L500.4050, L3300.1750 ####[facility] [address] [place], [address] AST [Catalytic activity/Vol] 24 U/L Normal <=37 [facility] Comment on above: Performed By: #### L 509.3001, L500.4050, L3300.1750 ####[facility] [address] [place], [address] Bilirubin [Mass/Vol] 0.24 mg/dL Normal 0.00-1.30 [facility] Comment on above: Performed By: #### L 509.3001, L500.4050, L3300.1750 ####[facility] [address] [place], [address] BUN/CRE 14.8 RATIO Normal 10-20 [facility] Comment on above: Performed By: #### L 509.3001, L500.4050, L3300.1750 ####[facility] [address] [place], [address] Calcium [Mass/Vol] 9.0 mg/dL Normal 7.6-11.0 [facility] Comment on above: Performed By: #### L 509.3001, L500.4050, L3300.1750 ####[facility] [address] [place], [address] Chloride [Moles/Vol] 101 mmol/L Normal 98-108 [facility] Comment on above: Performed By: #### L 509.3001, L500.4050, L3300.1750 ####[facility] [address] [place], [address] CO2 [Moles/Vol] 21.2 mmol/L Normal 21.0-32.0 [facility] Comment on above: Performed By: #### L 509.3001, L500.4050, L3300.1750 ####[facility] [address] [place], [address] Creatinine [Mass/Vol] 1.06 mg/dL Normal 0.70-1.20 [facility] Comment on above: Performed By: #### L 509.3001, L500.4050, L3300.1750 ####[facility] [address] [place], [address] GAP 13 Normal 5-15 [facility] Comment on above: Performed By: #### L 509.3001, L500.4050, L3300.1750 ####[facility] [address] [place], [address] GFR/1.73 sq M.predicted among non-blacks MDRD (S/P/Bld) [Vol rate/Area] 85 mL/min/{1.73_m2} Normal >60 [facility] Comment on above: Result Comment: mL/m in/1.73m2 CKD-EPI Creatinine Equation (2020) Performed By: #### L 509.3001, L500.4050, L3300.1750 ####[facility] [address] [place], [address] Globulin (S) [Mass/Vol] 2.9 g/dL Normal 2.2-4.2 [facility] Comment on above: Performed By: #### L 509.3001, L500.4050, L3300.1750 ####[facility] [address] [place], [address] Glucose [Mass/Vol] 104 mg/dL High 70-99 [facility] Comment on above: Performed By: #### L 509.3001, L500.4050, L3300.1750 ####[facility] [address] [place], [address] Potassium [Moles/Vol] 4.3 mmol/L Normal 3.3-5.1 [facility] Comment on above: Result Comment: Hemo lysis present, Results??could be affected. ?? Performed By: #### L 509.3001, L500.4050, L3300.1750 ####[facility] [address] [place], [address] Sodium [Moles/Vol] 135 mmol/L Normal 133-145 [facility] Comment on above: Performed By: #### L 509.3001, L500.4050, L3300.1750 ####[facility] [address] [place], [address] T PROT 7.0 g/dL Normal 5.9-8.4 [facility] Comment on above: Performed By: #### L 509.3001, L500.4050, L3300.1750 ####[facility] [address] [place], [address] Urea nitrogen [Mass/Vol] 16 mg/dL Normal 4-19 [facility] Comment on above: Performed By: #### L 509.3001, L500.4050, L3300.1750 ####[facility] [address] [place], [address] Estradiolon 01-12-2025 ESTRADIOL 45.8 pg/mL Normal [facility] Comment on above: Result Comment: [...] Performed By: #### L 509.3001, L500.4050, L3300.1750 ####[facility] [address] [place], [address] L509.3001on 01-12-2025 Testosterone [Mass/Vol] 201.00 ng/dL Low 300-880 [facility] Comment on above: Performed By: #### L 509.3001, L500.4050, L3300.1750 ####[facility] [address] [place], [place], [address] MR/BMS.BPon 01-01-2025 MR/BMS.BP [address], [address] [place] [address] OFFICE VISIT Date of Service: 01/01/25 MR#: [id number] Acct: [id number] Name: REUBEN SAPP Rep #: [id number] : 1975 Provider: KRISTIAN monroe Age/Sex: 49/M Location: [facility].BP Status: Signed Intake Vital Signs 11/04/24 11:26 12/18/24 10:19 01/01/25 11:08 Height 5 ft 6 in 5 ft 6 in 5 ft 6 in BP 109/62 Blood Pressure Location Rt brachial Position Sitting Pulse 71 Pulse Source Monitor BP Intake Visit Reasons: 8wfu Merchandise Support Associate Required: No Accompanied by: Self Is patient [...] mg PO QDAY 12/18/24 01/01/25 H istory [facility] Medical History (Updated 12/18/24 @ 12:20 by [...] Denies: wheezi (more content not included)... Normal [facility] Stress Reporton 12-31-2024 Stress Report [facility] [address] [place] [address] MR#: [id number] Acct: [id number] Name: REUBEN SAPP Rep #: [id number] : 1975 49 From: Bryce Quinonez MD [...] Manzano Date Dictated: 12/31/241244 Date Transcribed: 12/31/241244 Labor Relations Analyst: [place] Signed Normal [facility] CPK Total, Creatine Kinaseon 12-28-2024 CPK TOTAL 149 U/L Normal 24-195 [facility] Comment on above: Performed By: #### L 501.3620 ####[facility] [address] [place], [place], [address] PHILLIP w/ Reflex Mult Confirmon 12-23-2024 ANTI-DNA (DS)AB TNP Normal [facility] Comment on above: Performed By: #### L 3100.5450, L500.4050, L501.9520, L100.0100, L501.3620, L501.5200 ####[facility] [address] [place], [place], [address] ANTI-SS-A TNP Normal [facility] Comment on above: Performed By: #### L 3100.5450, L500.4050, L501.9520, L100.0100, L501.3620, L501.5200 ####[facility] [address] [place], [place], [phone] ANTI-SS-B TNP Normal [facility] Comment on above: Performed By: #### L 3100.5450, L500.4050, L501.9520, L100.0100, L501.3620, L501.5200 ####[facility] [address] [place], [address] CBC W/Diff, Automatedon 08-0 1-2024 Absolute Lymph 2.08 X10 3/uL Normal 0.83-4.51 [facility] Comment on above: Performed By: #### L 3100.5450, L500.4050, L501.9520, L100.0100, L501.3620, L501.5200 ####[facility] [address] [place], [address] Absolute Neut 2.5 X10 3/uL Normal 2.0-7.7 [facility] Comment on above: Performed By: #### L 3100.5450, L500.4050, L501.9520, L100.0100, L501.3620, L501.5200 ####[facility] [address] [place], [address] Basophils/100 WBC (Bld) 1.4 % High 0-1 [facility] Comment on above: Performed By: #### L 3100.5450, L500.4050, L501.9520, L100.0100, L501.3620, L501.5200 ####[facility] [address] [place], [address] Eosinophils/100 WBC (Bld) 6.0 % High 0-5 [facility] Comment on above: Performed By: #### L 3100.5450, L500.4050, L501.9520, L100.0100, L501.3620, L501.5200 ####[facility] [address] [place], [address] Erythrocyte distribution width (RBC) [Ratio] 14.1 % Normal 11.6-14.6 [facility] Comment on above: Performed By: #### L 3100.5450, L500.4050, L501.9520, L100.0100, L501.3620, L501.5200 ####[facility] [address] [place], [address] Hematocrit (Bld) [Volume fraction] 41.8 % Normal 40-54 [facility] Comment on above: Performed By: #### L 3100.5450, L500.4050, L501.9520, L100.0100, L501.3620, L501.5200 ####[facility] [address] [place], [address] Hemoglobin (Bld) [Mass/Vol] 14.0 g/dL Normal 13.0-16.5 [facility] Comment on above: Performed By: #### L 3100.5450, L500.4050, L501.9520, L100.0100, L501.3620, L501.5200 ####[facility] [address] [place], [address] IG% 0.200 Normal 0.0-0.9 [facility] Comment on above: Result Comment: IG% - Immature Granulocytes (promyelocytes, myelocytes and metamyelocytes) > 1% indicates that a LEFT SHIFT is Present. Performed By: #### L 3100.5450, L500.4050, L501.9520, L100.0100, L501.3620, L501.5200 ####[facility] [address] [place], [address] Lymphocytes/100 WBC (Bld) 37.5 % Normal 19-41 [facility] Comment on above: Performed By: #### L 3100.5450, L500.4050, L501.9520, L100.0100, L501.3620, L501.5200 ####[facility] [address] [place], [address] MCH (RBC) [Entitic mass] 29.5 pg Normal 27.0-32.0 [facility] Comment on above: Performed By: #### L 3100.5450, L500.4050, L501.9520, L100.0100, L501.3620, L501.5200 ####[facility] [address] [place], [address] MCHC (RBC) [Mass/Vol] 33.5 g/dL Normal 32-36 [facility] Comment on above: Performed By: #### L 3100.5450, L500.4050, L501.9520, L100.0100, L501.3620, L501.5200 ####[facility] [address] [place], [address] MCV (RBC) [Entitic vol] 88.2 fL Normal 80-94 [facility] Comment on above: Performed By: #### L 3100.5450, L500.4050, L501.9520, L100.0100, L501.3620, L501.5200 ####[facility] [address] [place], [address] Monocytes/100 WBC (Bld) 9.4 % Normal 0-10 [facility] Comment on above: Performed By: #### L 3100.5450, L500.4050, L501.9520, L100.0100, L501.3620, L501.5200 ####[facility] [address] [place], [address] Neutrophils/100 WBC (Bld) 45.5 % Low 47-70 [facility] Comment on above: Performed By: #### L 3100.5450, L500.4050, L501.9520, L100.0100, L501.3620, L501.5200 ####[facility] [address] [place], [address] Nucleated RBC (Bld) [#/Vol] 0 10*3/uL Normal 0-5 [facility] Comment on above: Performed By: #### L 3100.5450, L500.4050, L501.9520, L100.0100, L501.3620, L501.5200 ####[facility] [address] [place], [address] Platelet mean volume (Bld) [Entitic vol] 9.8 fL Normal 6.2-12.0 [facility] Comment on above: Performed By: #### L 3100.5450, L500.4050, L501.9520, L100.0100, L501.3620, L501.5200 ####[facility] [address] [place], [address] Platelets (Bld) [#/Vol] 319 10*3/uL Normal 150-450 [facility] Comment on above: Performed By: #### L 3100.5450, L500.4050, L501.9520, L100.0100, L501.3620, L501.5200 ####[facility] [address] [place], [address] RBC (Bld) [#/Vol] 4.74 10*6/uL Normal 4.6-6.2 [facility] Comment on above: Performed By: #### L 3100.5450, L500.4050, L501.9520, L100.0100, L501.3620, L501.5200 ####[facility] [address] [place], [address] RDW SD 45.6 fl High 35.1-43.9 [facility] Comment on above: Performed By: #### L 3100.5450, L500.4050, L501.9520, L100.0100, L501.3620, L501.5200 ####[facility] [address] [place], [address] WBC (Bld) [#/Vol] 5.5 10*3/uL Normal 4.4-11.0 [facility] Comment on above: Performed By: #### L 3100.5450, L500.4050, L501.9520, L100.0100, L501.3620, L501.5200 ####[facility] [address] [place], [address] CPK Total, Creatine Kinaseon 12-18-2024 CPK TOTAL 411 U/L High 24-195 [facility] Comment on above: Performed By: #### L 3100.5450, L500.4050, L501.9520, L100.0100, L501.3620, L501.5200 ####[facility] [address] [place], [address] Comprehensive Metabolic Prof ilon 12-18-2024 Albumin [Mass/Vol] 4.3 g/dL Normal 3.5-5.0 [facility] Comment on above: Performed By: #### L 3100.5450, L500.4050, L501.9520, L100.0100, L501.3620, L501.5200 ####[facility] [address] [place], [address] Albumin/Globulin [Mass ratio] 1.5 {ratio} Normal 0.9-2.4 [facility] Comment on above: Performed By: #### L 3100.5450, L500.4050, L501.9520, L100.0100, L501.3620, L501.5200 ####[facility] [address] [place], [address] ALK PHOS 90 U/L Normal 40-129 [facility] Comment on above: Performed By: #### L 3100.5450, L500.4050, L501.9520, L100.0100, L501.3620, L501.5200 ####[facility] [address] [place], [address] ALT [Catalytic activity/Vol] 35 U/L Normal <=46 [facility] Comment on above: Performed By: #### L 3100.5450, L500.4050, L501.9520, L100.0100, L501.3620, L501.5200 ####[facility] [address] [place], [address] AST [Catalytic activity/Vol] 28 U/L Normal <=37 [facility] Comment on above: Performed By: #### L 3100.5450, L500.4050, L501.9520, L100.0100, L501.3620, L501.5200 ####[facility] [address] [place], [address] Bilirubin [Mass/Vol] 0.52 mg/dL Normal 0.00-1.30 [facility] Comment on above: Performed By: #### L 3100.5450, L500.4050, L501.9520, L100.0100, L501.3620, L501.5200 ####[facility] [address] [place], [address] BUN/CRE 17.5 RATIO Normal 10-20 [facility] Comment on above: Performed By: #### L 3100.5450, L500.4050, L501.9520, L100.0100, L501.3620, L501.5200 ####[facility] [address] [place], [address] Calcium [Mass/Vol] 9.5 mg/dL Normal 7.6-11.0 [facility] Comment on above: Performed By: #### L 3100.5450, L500.4050, L501.9520, L100.0100, L501.3620, L501.5200 ####[facility] [address] [place], [address] Chloride [Moles/Vol] 102 mmol/L Normal 98-108 [facility] Comment on above: Performed By: #### L 3100.5450, L500.4050, L501.9520, L100.0100, L501.3620, L501.5200 ####[facility] [address] [place], [address] CO2 [Moles/Vol] 20.5 mmol/L Low 21.0-32.0 [facility] Comment on above: Performed By: #### L 3100.5450, L500.4050, L501.9520, L100.0100, L501.3620, L501.5200 ####[facility] [address] [place], [address] Creatinine [Mass/Vol] 1.11 mg/dL Normal 0.70-1.20 [facility] Comment on above: Performed By: #### L 3100.5450, L500.4050, L501.9520, L100.0100, L501.3620, L501.5200 ####[facility] [address] [place], [address] GAP 12 Normal 5-15 [facility] Comment on above: Performed By: #### L 3100.5450, L500.4050, L501.9520, L100.0100, L501.3620, L501.5200 ####[facility] [address] [place], [address] GFR/1.73 sq M.predicted among non-blacks MDRD (S/P/Bld) [Vol rate/Area] 80 mL/min/{1.73_m2} Normal >60 [facility] Comment on above: Result Comment: mL/m in/1.73m2 CKD-EPI Creatinine Equation (2020) Performed By: #### L 3100.5450, L500.4050, L501.9520, L100.0100, L501.3620, L501.5200 ####[facility] [address] [place], [address] Globulin (S) [Mass/Vol] 2.9 g/dL Normal 2.2-4.2 [facility] Comment on above: Performed By: #### L 3100.5450, L500.4050, L501.9520, L100.0100, L501.3620, L501.5200 ####[facility] [address] [place], [address] Glucose [Mass/Vol] 94 mg/dL Normal 70-99 [facility] Comment on above: Performed By: #### L 3100.5450, L500.4050, L501.9520, L100.0100, L501.3620, L501.5200 ####[facility] [address] [place], [address] Potassium [Moles/Vol] 4.4 mmol/L Normal 3.3-5.1 [facility] Comment on above: Performed By: #### L 3100.5450, L500.4050, L501.9520, L100.0100, L501.3620, L501.5200 ####[facility] [address] [place], [address] Sodium [Moles/Vol] 134 mmol/L Normal 133-145 [facility] Comment on above: Performed By: #### L 3100.5450, L500.4050, L501.9520, L100.0100, L501.3620, L501.5200 ####[facility] [address] [place], [address] T PROT 7.1 g/dL Normal 5.9-8.4 [facility] Comment on above: Performed By: #### L 3100.5450, L500.4050, L501.9520, L100.0100, L501.3620, L501.5200 ####[facility] [address] [place], [address] Urea nitrogen [Mass/Vol] 19 mg/dL Normal 4-19 [facility] Comment on above: Performed By: #### L 3100.5450, L500.4050, L501.9520, L100.0100, L501.3620, L501.5200 ####[facility] [address] [place], [address] Internal Medicine Office Vis iton 12-18-2024 Internal Medicine Office Visit [facility] [address] [place] [address] [place] [address] OFFICE VISIT Date of Service: 12/18/24 MR#: [id number] Acct: [id number] Name: REUBEN SAPP Rep #: [id number] : 1975 Provider: CARMENZA Manzano Age/Sex: 49/M Location: [facility] Status: Signed Intake Vital Signs 12/09/24 15:11 [...] air Intake Visit Reasons: FOLLOW UP FROM [facility] Chief Complaint: FU FROM [facility] Is patient in pain?: Yes (GENERALIZED [...] STATING THINGS THAT NEED TO BE DISCUSSED. [facility] Medical History Blood glucose elevated Encounter to [...] and colleagues, with an educational noe from [employer]. DAVID-7 BMS DAVID-7 Feeling nervous, anxious, or [...] and colleagues, with an educational noe from [employer] (more content not included)... Normal [facility] Magnesiumon 12-18-2024 Magnesium [Mass/Vol] 2.2 mg/dL Normal 1.5-2.2 [facility] Comment on above: Performed By: #### L 3100.5450, L500.4050, L501.9520, L100.0100, L501.3620, L501.5200 ####[facility] [address] [place], [address] Thyroid Stim Hormone (TSH)on 12-18-2024 TSH 3.760 uIU/mL Normal 0.300-4.200 [facility] Comment on above: Performed By: #### L 3100.5450, L500.4050, L501.9520, L100.0100, L501.3620, L501.5200 ####[facility] [address] [place], [address] Internal Medicine Office Vis iton 12-09-2024 Internal Medicine Office Visit [facility] [address] [place] [address] [place] [address] OFFICE VISIT Date of Service: 12/09/24 MR#: [id number] Acct: [id number] Name: BRANDI CARRENOREUBEN RODRIGEZ Rep #: [id number] : 1975 Provider: CARMENZA Manzano Age/Sex: 49/M Location: [facility] Status: Signed Intake Vital Signs 11/06/24 17:31 12/09/24 15:11 Height 5 ft 6 in 5 ft 6 in Weight: 210 lb 6 oz BMI 33.9 BP 128/70 H Blood Pressure Location Lt brachial Position Sitting Respiration 18 Pulse 68 Pulse Source Monitor Temp 97.7 F L Temp Source Temporal Pulse Oximetry (%) 98 Oxygen Delivery Method room air Intake Visit Reasons: [facility] FOLLOW UP 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 [facility] Medical History (Updated 12/10/24 @ 09:18 by [...] first thing (more content not included)... Normal [facility] 12 Lead EKGon 11-06-2024 12 Lead EKG [facility] [address] [place] [address] 12 Lead EKG 11/06/24 1750 MR#: [id number] Acct: [id number] Name: REUBEN SAPP Rep #: [id number] : 1975 49 From: Pankaj Keller MD [...] msec Abnormal ECG Confirmed by Pankaj Keller ([id number]), editorial project manager ERIS STARKEY ([id number]) on 11/10/2024 11:43:28 AM Referred By: Confirmed By: Pankaj Keller 11/10/24 1143 Date Pankaj Keller MD CC: Dr. Rakesh Broderick DO; Dr. Keke Jackson MD; CARMENZA Harman Signed Normal [facility] Basic Metabolic Profile (BMP )on 11-06-2024 Calcium [Mass/Vol] 9.0 mg/dL Normal 7.6-11.0 [facility] Comment on above: Performed By: #### L 500.2500, L100.0100, L501.4021 ####[facility] [address] [place], [address] CBC W/Diff, Automatedon 10-19 Absolute Lymph 2.38 X10 3/uL Normal 0.83-4.51 [facility] Comment on above: Performed By: #### L 500.2500, L100.0100, L501.4021 #### [facility] [address] [place], [address] Absolute Neut 4.1 X10 3/uL Normal 2.0-7.7 [facility] Comment on above: Performed By: #### L 500.2500, L100.0100, L501.4021 #### [facility] [address] [place], [address] Basophils/100 WBC (Bld) 1.2 % High 0-1 [facility] Comment on above: Performed By: #### L 500.2500, L100.0100, L501.4021 #### [facility] [address] [place], [address] Eosinophils/100 WBC (Bld) 3.5 % Normal 0-5 [facility] Comment on above: Performed By: #### L 500.2500, L100.0100, L501.4021 #### [facility] [address] [place], [address] Erythrocyte distribution width (RBC) [Ratio] 13.2 % Normal 11.6-14.6 [facility] Comment on above: Performed By: #### L 500.2500, L100.0100, L501.4021 #### [facility] [address] [place], [address] Hematocrit (Bld) [Volume fraction] 41.3 % Normal 40-54 [facility] Comment on above: Performed By: #### L 500.2500, L100.0100, L501.4021 #### [facility] [address] [place], [address] Hemoglobin (Bld) [Mass/Vol] 14.5 g/dL Normal 13.0-16.5 [facility] Comment on above: Performed By: #### L 500.2500, L100.0100, L501.4021 #### [facility] [address] [place], [address] IG% 0.300 Normal 0.0-0.9 [facility] Comment on above: Result Comment: IG% - Immature Granulocytes (promyelocytes, myelocytes and metamyelocytes) > 1% indicates that a LEFT SHIFT is Present. Performed By: #### L 500.2500, L100.0100, L501.4021 #### [facility] [address] [place], [address] Lymphocytes/100 WBC (Bld) 32.0 % Normal 19-41 [facility] Comment on above: Performed By: #### L 500.2500, L100.0100, L501.4021 #### [facility] [address] [place], [address] MCH (RBC) [Entitic mass] 30.0 pg Normal 27.0-32.0 [facility] Comment on above: Performed By: #### L 500.2500, L100.0100, L501.4021 #### [facility] [address] [place], [address] MCHC (RBC) [Mass/Vol] 35.1 g/dL Normal 32-36 [facility] Comment on above: Performed By: #### L 500.2500, L100.0100, L501.4021 #### [facility] [address] [place], [address] MCV (RBC) [Entitic vol] 85.5 fL Normal 80-94 [facility] Comment on above: Performed By: #### L 500.2500, L100.0100, L501.4021 #### [facility] [address] [place], [address] Monocytes/100 WBC (Bld) 8.3 % Normal 0-10 [facility] Comment on above: Performed By: #### L 500.2500, L100.0100, L501.4021 #### [facility] [address] [place], [address] Neutrophils/100 WBC (Bld) 54.7 % Normal 47-70 [facility] Comment on above: Performed By: #### L 500.2500, L100.0100, L501.4021 #### [facility] [address] [place], [address] Nucleated RBC (Bld) [#/Vol] 0 10*3/uL Normal 0-5 [facility] Comment on above: Performed By: #### L 500.2500, L100.0100, L501.4021 #### [facility] [address] [place], [address] Platelet mean volume (Bld) [Entitic vol] 9.1 fL Normal 6.2-12.0 [facility] Comment on above: Performed By: #### L 500.2500, L100.0100, L501.4021 #### [facility] [address] [place], [address] Platelets (Bld) [#/Vol] 295 10*3/uL Normal 150-450 [facility] Comment on above: Performed By: #### L 500.2500, L100.0100, L501.4021 #### [facility] [address] [place], [address] RBC (Bld) [#/Vol] 4.83 10*6/uL Normal 4.6-6.2 [facility] Comment on above: Performed By: #### L 500.2500, L100.0100, L501.4021 #### [facility] [address] [place], [address] RDW SD 41.0 fl Normal 35.1-43.9 [facility] Comment on above: Performed By: #### L 500.2500, L100.0100, L501.4021 #### [facility] [address] [place], [address] WBC (Bld) [#/Vol] 7.4 10*3/uL Normal 4.4-11.0 [facility] Comment on above: Performed By: #### L 500.2500, L100.0100, L501.4021 #### [facility] [address] [place], [address] CNOVon 11-06-2024 CNOV Office Visit (UCWSTR ) BRANDI REUBEN CARRENO ([id number]) 1975 M Date Time Provider Department 11/06/24 5:15 PM BUDDY TEMPLE [facility] During your visit today, we recorded the following information about you: Buddy Temple APRN.LOGISTICS TEAM LEAD 11/06/2024 5:40 PM Signed Patient came in [...] BUDDY TEMPLE on 11/06/24 Normal [facility] Chest PA and Lateralon 11-06 Chest PA and Lateral [facility] [address] [place] [id number] Chest PA and Lateral MR#: [id number] Acct: [id number] Name: REUBEN SAPP Rep #: [id number] : 1975 M 49 From: Michael Queen MD PCP: Dr. Keke Jackson MD Status: REG ER Study: Chest PA and Lateral Date of Exam: 11/06/24 Exam# [id number] Ordering Dr: Taylor Munoz EXAM: XR Chest, 2 Views CLINICAL INDICATION: CHEST PAIN TECHNIQUE: Frontal and lateral views of the chest. COMPARISON: No relevant prior studies available. FINDINGS: LUNGS AND PLEURAL SPACES: Unremarkable. No consolidation. No pneumothorax. HEART: Unremarkable. No cardiomegaly. MEDIASTINUM: Unremarkable. Normal mediastinal contour. BONES/JOINTS: Unremarkable. No acute fracture. RAD/Chest PA and Lateral IMPRESSION: No acute cardiopulmonary process. Reading Location: [facility] CC: Dr. Keke Jackson MD; CARMENZA Harman Labor Relations Analyst: Signed Normal [facility] Emergency Department Summary on 11-06-2024 Emergency Department Summary [facility] Medical Records Department [address] [place] [address] Emergency Department Summary 11/06/24 MR#: [id number] Acct: [id number] Name: REUBEN SAPP Rep #: [id number] : 1975 49 From: Rakesh Broderick DO [...] states he ate a chicken sandwich at [employer] and had a few seconds of the pain afterward. He has no shortness of breath, nausea or vomiting, or abdominal or back pain. He has normal bladder and bowel movements. He denies fever chills or upper respiratory symptoms. He is on esomeprazole and famotidine for GERD. [facility] Medical History (Updated 11/06/24 @ 21:05 by [...] 11/06/24 21:00 (more content not included)... Normal [facility] L499.0042on 11-06-2024 Trop T High Sen 9 ng/L Normal <=22 [facility] Comment on above: Performed By: #### L 499.0042 ####[facility] [address] [place], [address] L501.4021on 11-06-2024 Trop T High Sen 9 ng/L Normal <=22 [facility] Comment on above: Performed By: #### L 500.2500, L100.0100, L501.4021 #### [facility] [address] [place], [address] /BMS.BPon 11-04-2024 MR/BMS.BP [address], [address] [place] [address] OFFICE VISIT Date of Service: 11/04/24 MR#: [id number] Acct: [id number] Name: REUBEN SAHU Rep #: [id number] : 1975 Provider: KRISTIAN monroe Age/Sex: 49/M Location: [facility].BP Status: Signed Intake Vital Signs 09/10/24 10:35 [...] Hematologic/Lymphatic Denies: (more content not included)... Normal [facility] CBC W/Diff, Automatedon 10-18 Absolute Lymph 2.01 X10 3/uL Normal 0.83-4.51 [facility] Comment on above: Performed By: #### L 500.4050, L500.4100, L501.9910, L100.0100 #### [facility] [address] [place], [address] Absolute Neut 2.0 X10 3/uL Normal 2.0-7.7 [facility] Comment on above: Performed By: #### L 500.4050, L500.4100, L501.9910, L100.0100 #### [facility] [address] [place], [address] Basophils/100 WBC (Bld) 1.6 % High 0-1 [facility] Comment on above: Performed By: #### L 500.4050, L500.4100, L501.9910, L100.0100 #### [facility] [address] [place], [address] Eosinophils/100 WBC (Bld) 6.0 % High 0-5 [facility] Comment on above: Performed By: #### L 500.4050, L500.4100, L501.9910, L100.0100 #### [facility] [address] [place], [address] Erythrocyte distribution width (RBC) [Ratio] 13.6 % Normal 11.6-14.6 [facility] Comment on above: Performed By: #### L 500.4050, L500.4100, L501.9910, L100.0100 #### [facility] [address] [place], [address] Hematocrit (Bld) [Volume fraction] 41.6 % Normal 40-54 [facility] Comment on above: Performed By: #### L 500.4050, L500.4100, L501.9910, L100.0100 #### [facility] [address] [place], [address] Hemoglobin (Bld) [Mass/Vol] 14.1 g/dL Normal 13.0-16.5 [facility] Comment on above: Performed By: #### L 500.4050, L500.4100, L501.9910, L100.0100 #### [facility] [address] [place], [address] IG% 0.200 Normal 0.0-0.9 [facility] Comment on above: Result Comment: IG% - Immature Granulocytes (promyelocytes, myelocytes and metamyelocytes) > 1% indicates that a LEFT SHIFT is Present. Performed By: #### L 500.4050, L500.4100, L501.9910, L100.0100 #### [facility] [address] [place], [address] Lymphocytes/100 WBC (Bld) 41.4 % High 19-41 [facility] Comment on above: Performed By: #### L 500.4050, L500.4100, L501.9910, L100.0100 #### [facility] [address] [place], [address] MCH (RBC) [Entitic mass] 30.1 pg Normal 27.0-32.0 [facility] Comment on above: Performed By: #### L 500.4050, L500.4100, L501.9910, L100.0100 #### [facility] [address] [place], [address] MCHC (RBC) [Mass/Vol] 33.9 g/dL Normal 32-36 [facility] Comment on above: Performed By: #### L 500.4050, L500.4100, L501.9910, L100.0100 #### [facility] [address] [place], [address] MCV (RBC) [Entitic vol] 88.7 fL Normal 80-94 [facility] Comment on above: Performed By: #### L 500.4050, L500.4100, L501.9910, L100.0100 #### [facility] [address] [place], [address] Monocytes/100 WBC (Bld) 9.7 % Normal 0-10 [facility] Comment on above: Performed By: #### L 500.4050, L500.4100, L501.9910, L100.0100 #### [facility] [address] [place], [address] Neutrophils/100 WBC (Bld) 41.1 % Low 47-70 [facility] Comment on above: Performed By: #### L 500.4050, L500.4100, L501.9910, L100.0100 #### [facility] [address] [place], [address] Nucleated RBC (Bld) [#/Vol] 0 10*3/uL Normal 0-5 [facility] Comment on above: Performed By: #### L 500.4050, L500.4100, L501.9910, L100.0100 #### [facility] [address] [place], [address] Platelet mean volume (Bld) [Entitic vol] 9.5 fL Normal 6.2-12.0 [facility] Comment on above: Performed By: #### L 500.4050, L500.4100, L501.9910, L100.0100 #### [facility] [address] [place], [address] Platelets (Bld) [#/Vol] 282 10*3/uL Normal 150-450 [facility] Comment on above: Performed By: #### L 500.4050, L500.4100, L501.9910, L100.0100 #### [facility] [address] [place], [address] RBC (Bld) [#/Vol] 4.69 10*6/uL Normal 4.6-6.2 [facility] Comment on above: Performed By: #### L 500.4050, L500.4100, L501.9910, L100.0100 #### [facility] [address] [place], [address] RDW SD 44.3 fl High 35.1-43.9 [facility] Comment on above: Performed By: #### L 500.4050, L500.4100, L501.9910, L100.0100 #### [facility] [address] [place], [address] WBC (Bld) [#/Vol] 4.9 10*3/uL Normal 4.4-11.0 [facility] Comment on above: Performed By: #### L 500.4050, L500.4100, L501.9910, L100.0100 #### [facility] [address] [place], [address] Comprehensive Metabolic [facility] 10-30-2024 Albumin [Mass/Vol] 4.2 g/dL Normal 3.5-5.0 [facility] Comment on above: Performed By: #### L 500.4050, L500.4100, L501.9910, L100.0100 #### [facility] [address] [place], [address] Albumin/Globulin [Mass ratio] 1.5 {ratio} Normal 0.9-2.4 [facility] Comment on above: Performed By: #### L 500.4050, L500.4100, L501.9910, L100.0100 #### [facility] [address] [place], [address] ALK PHOS 85 U/L Normal 40-129 [facility] Comment on above: Performed By: #### L 500.4050, L500.4100, L501.9910, L100.0100 #### [facility] [address] [place], [address] ALT [Catalytic activity/Vol] 32 U/L Normal <=46 [facility] Comment on above: Performed By: #### L 500.4050, L500.4100, L501.9910, L100.0100 #### [facility] [address] [place], [address] AST [Catalytic activity/Vol] 25 U/L Normal <=37 [facility] Comment on above: Performed By: #### L 500.4050, L500.4100, L501.9910, L100.0100 #### [facility] [address] [place], [address] Bilirubin [Mass/Vol] 0.43 mg/dL Normal 0.00-1.30 [facility] Comment on above: Performed By: #### L 500.4050, L500.4100, L501.9910, L100.0100 #### [facility] [address] [place], [address] BUN/CRE 12.4 RATIO Normal 10-20 [facility] Comment on above: Performed By: #### L 500.4050, L500.4100, L501.9910, L100.0100 #### [facility] [address] [place], [address] Calcium [Mass/Vol] 9.1 mg/dL Normal 7.6-11.0 [facility] Comment on above: Performed By: #### L 500.4050, L500.4100, L501.9910, L100.0100 #### [facility] [address] [place], [address] Chloride [Moles/Vol] 103 mmol/L Normal 98-108 [facility] Comment on above: Performed By: #### L 500.4050, L500.4100, L501.9910, L100.0100 #### [facility] [address] [place], [address] CO2 [Moles/Vol] 20.8 mmol/L Low 21.0-32.0 [facility] Comment on above: Performed By: #### L 500.4050, L500.4100, L501.9910, L100.0100 #### [facility] [address] [place], [address] Creatinine [Mass/Vol] 1.13 mg/dL Normal 0.70-1.20 [facility] Comment on above: Performed By: #### L 500.4050, L500.4100, L501.9910, L100.0100 #### [facility] [address] [place], [address] GAP 11 Normal 5-15 [facility] Comment on above: Performed By: #### L 500.4050, L500.4100, L501.9910, L100.0100 #### [facility] [address] [place], [address] GFR/1.73 sq M.predicted among non-blacks MDRD (S/P/Bld) [Vol rate/Area] 79 mL/min/{1.73_m2} Normal >60 [facility] Comment on above: Result Comment: mL/m in/1.73m2 CKD-EPI Creatinine Equation (2020) Performed By: #### L 500.4050, L500.4100, L501.9910, L100.0100 #### [facility] [address] [place], [address] Globulin (S) [Mass/Vol] 2.7 g/dL Normal 2.2-4.2 [facility] Comment on above: Performed By: #### L 500.4050, L500.4100, L501.9910, L100.0100 #### [facility] [address] [place], [address] Glucose [Mass/Vol] 132 mg/dL High 70-99 [facility] Comment on above: Performed By: #### L 500.4050, L500.4100, L501.9910, L100.0100 #### [facility] [address] [place], [address] Potassium [Moles/Vol] 3.9 mmol/L Normal 3.3-5.1 [facility] Comment on above: Performed By: #### L 500.4050, L500.4100, L501.9910, L100.0100 #### [facility] [address] [place], [address] Sodium [Moles/Vol] 135 mmol/L Normal 133-145 [facility] Comment on above: Performed By: #### L 500.4050, L500.4100, L501.9910, L100.0100 #### [facility] [address] [place], [address] T PROT 6.9 g/dL Normal 5.9-8.4 [facility] Comment on above: Performed By: #### L 500.4050, L500.4100, L501.9910, L100.0100 #### [facility] [address] [place], [address] Urea nitrogen [Mass/Vol] 14 mg/dL Normal 4-19 [facility] Comment on above: Performed By: #### L 500.4050, L500.4100, L501.9910, L100.0100 #### [facility] [address] [place], [address] Hemoglobin A1con 10-30-2024 HbA1c (Bld) [Mass fraction] 6.1 % High <=5.6 [facility] Comment on above: Result Comment: Norm al < 5.7 % Prediabetic 5.7 - 6.4 % Diabetic >or= 6.5 % Please note range changes. Performed By: #### L 501.9985 ####[facility] [id number] [place], [place], [address] Internal Medicine Office Vis iton 10-30-2024 Internal Medicine Office Visit [facility] [address] [place], [place] [address] OFFICE VISIT Date of Service: 10/30/24 MR#: [id number] Acct: [id number] Name: REUBEN SAHU Rep #: [id number] : 1975 Provider: Dr. 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 EST CARE - PSYCH PT/CONSENT ONLY Chief Complaint: INSOLE AND HEEL STIFFENER. EST CARE- Is patient in pain?: Yes [...] 10/30/24 Hi story release 24 hr (Myrbetriq) [facility] Medical History (Updated 10/30/24 @ 10:05 by [...] does not use HPI HPI Chief Complaint: INSOLE AND HEEL STIFFENER. EST CARE- Details: REUBEN HOFFMANN, is a 49 M who presents to the office today to establish care. No acute concerns at this time. Had previously followed up with Dr. Crocker in [place]. He also currently follows up with urology, psychiatry and a provider in [place] for gender affirming care. Has been on Estradiol and spironolactone for about 3 years. At this time, no plans for surgery. Last colonoscopy was 2 years ago and prior to that, had 2 colonoscopies with history of polyps. He reports family history of "cancers" on his father side, not sure what kind of cancer. Mother from breast cancer. Recently started on Myrbetriq due to urinary frequency, so far cannot tell if it is that helpful or not. Also follows up with dermatology at [facility]. ROS Const Constitutional: No body [...] No dr (more content not included)... Normal [facility] Lipid Profileon 10-30-2024 CHOL:HDL 3.35 Normal [facility] Comment on above: Performed By: #### L 500.4050, L500.4100, L501.9910, L100.0100 #### [facility] [address] [place], [address] Cholesterol [Mass/Vol] 165 mg/dL Normal <=[address] [facility] Comment on above: Result Comment: Chol esterol level, Desirable <200 mg/dL Borderline high cholesterol 200-239 mg/dL High cholesterol >=240 mg/dL Recommendations of the NCEP Adult Treatment Panel for the following risk-cutoff thresholds for the [place] population. Performed By: #### L 500.4050, L500.4100, L501.9910, L100.0100 #### [facility] [address] [place], [address] Cholesterol in HDL [Mass/Vol] 49 mg/dL Normal [facility] Comment on above: Result Comment: Kristina onal Cholesterol Education Program (NCEP) guidelines: <40 mg/dL: Low HDL-cholesterol (major risk factor for CHD) >= 60 mg/dL: High HDL-cholesterol (negative risk factor for CHD) HDL-cholesterol is affected by a number of factors, e.g. smoking, exercise, hormones, sex and age. Performed By: #### L 500.4050, L500.4100, L501.9910, L100.0100 #### [facility] [address] [place], [address] Cholesterol in LDL [Mass/Vol] 82 mg/dL Normal [facility] Comment on above: Result Comment: Bord ciwcgh=190-288 mg/dL Higher Vwmn=065 mg/dL or greater Performed By: #### L 500.4050, L500.4100, L501.9910, L100.0100 #### [facility] [address] [place], [address] Cholesterol in VLDL [Mass/Vol] 34 mg/dL Normal 5-40 [facility] Comment on above: Performed By: #### L 500.4050, L500.4100, L501.9910, L100.0100 #### [facility] [address] [place], [address] Triglyceride [Mass/Vol] 168 mg/dL Normal [facility] Comment on above: Result Comment: The drugs N-Acetylcysteine and Metamizole may falsely depress this assay. Normal range: <150 mg/dL Borderline High: 150-199 mg/dL High: 200-499 mg/dL Very High: >500 mg/dL Performed By: #### L 500.4050, L500.4100, L501.9910, L100.0100 #### [facility] [address] [place], [address] PSA,Total - Annual Screenon 10-30-2024 PSA,TOT SCREEN 0.12 ng/mL Normal 0.02-4.00 [facility] Comment on above: Result Comment: [...] #### L 500.4050, L500.4100, L501.9910, L100.0100 #### [facility] [address] 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 Has started in group therapy in [place] but has only been one time and [...] casually dress (more content not included)... Normal [facility] MR/BMS.BPon 07-16-2024 MR/BMS. [facility] [address], [address] [place] [id number] OFFICE VISIT Date of Service: 07/16/24 MR#: [id number] Acct: [id number] Name: REUBEN SAHU Rep #: [id number] : 1975 Provider: KRISTIAN monroe Age/Sex: 49/M Location: [facility].BP Status: Signed Intake Vital Signs 05/05/24 10:32 [...] Denies: whe (more content not included)... [facility] (UCW[facility] ) REUBEN SAPP ([id number]) 1975 M Date Time Provider Department 07/09/24 4:45 PM [facility]A [facility] During your visit today, we recorded the following information about you: Temperature Pulse Respiration Blood pressure 97.6 degrees 67/minute 18/minute 133/85 Weight 97.5 kg Minerva Easton APRN.LOGISTICS TEAM LEAD 07/09/2024 5:08 PM Signed Subjective HPI Pt [...] he passed out. Pt reports going to [place] ER to be evaluated, which he was [...] (more content not included)... Normal [facility] Emergency Department Summary on 07-05-2024 Emergency Department Summary [facility] Medical Records Department [address] [place] [address] Emergency Department Summary 07/05/24 MR#: [id number] Acct: [id number] Name: REUBEN SAHU Rep #: [id number] : 1975 49 From: Nash Geller MD [...] decision mike (more content not included)... [facility] ([facility] ) REUBEN SAPP ([id number]) 1975 M Date Time Provider Department 07/04/24 11:15 AM EMELY ACUNA [facility] During your visit today, we recorded the following information about you: Temperature Pulse Respiration Blood pressure 97.1 degrees 78/minute 16/minute 118/84 Weight 97.9 kg Emely Acuna APRN.LOGISTICS TEAM LEAD 07/04/2024 11:56 AM Signed Subjective The history is provided by the patient. No sign language teacher was used. [facility] Reuben Carreno is a 49 year old [...] have confirmed and edited as necessary, the [facility] Review of Systems Constitutional: Positive for malaise/fatigue. [...] APRN.Emely Wolf APRN.CNP 07/04/2024 11:56 AM Signed Tessalon Perles 2 [...] (more content not included)... Normal [facility] CNOVon 07-02-2024 [facility] Office Visit (UCWSTR ) REUBEN SAPP ([id number]) 1975 M Date Time Provider Department 07/02/24 2:00 PM HOLDEN ROGERS [facility] During your visit today, we recorded [...] Reactions Fluvoxamine Other: See Comments Hypertension Nitrofurantoin Mobile* Other: See Comments Hypertension Latex, Natural Rubb* [...] Diagnosis:Acute cough [R05.1] Order(s):XR CHEST 2V FRONTAL/LAT [[id number]] Order #: [id number] FUTURE benzonatate (TESSALON PERLE) 100 mg capsuleTake [...] (more content not included)... Normal [facility] XR CHEST 2V FRONTAL/LATon XR CHEST 2V [...] tissues: Unremarkable. IMPRESSION: No acute radiographic abnormality. Labor Relations Analyst: [facility] Transcribe Date/Time: Jul 02 2024 1:55P Dictated by : MAVERICK BORDEN MD This examination was interpreted and the report reviewed and electronically signed by: MAVERICK BORDEN MD on Jul 02 2024 1:55PM EST [id number] Normal [facility] XR Chest PA and Lateralon IMPRESSION: No acute radiographic abnormality. Labor Relations Analyst: [facility] Transcribe Date/Time: Jul 02 2024 1:55P [...] Unremarkable. IMPRESSION IMPRESSION: No acute radiographic abnormality. Labor Relations Analyst: [facility] Transcribe Date/Time: Jul 02 2024 1:55P Dictated by : MAVERICK BORDEN MD This examination was interpreted and the report reviewed and electronically signed by: MAVERICK BORDEN MD on Jul 02 2024 1:55PM EST [facility] Radiology Study observation (narrative) [facility] XR Chest PA and LateralOrder ed By: Ccf Provider on 07-02-2024 [facility] CNOVon 06-17-2024 [facility] Office Visit (UCWSTR ) REUBEN SAPP ([id number]) 1975 M Date Time Provider Department 06/17/24 2:00 PM MYESHA ORTIZ [facility] During your visit today, we recorded the following information about you: Temperature Pulse Respiration Blood pressure 98.2 degrees 78/minute 20/minute 148/100 Weight 95.2 kg Myesha Ortiz APRN.LOGISTICS TEAM LEAD 06/17/2024 2:48 PM Signed Subjective HPI HPI [...] HFA 90 MCG/ACTUATION AEROSOL INHALER Myesha Ortiz APRN.LOGISTICS TEAM LEAD Allergies As of Date: 06/17/2024 Noted Allergy [...] of asthma [Z87.09] Order(s):XR CHEST 2V FRONTAL/LAT [[id number]] Order #: [id number]. #:[id number] albuterol (more content not included)... Normal [facility] XR CHEST 2V FRONTAL/LATon XR CHEST 2V [...] tissues: Unremarkable. IMPRESSION: No acute radiographic abnormality. Labor Relations Analyst: [facility] Transcribe Date/Time: Jun 17 2024 2:33P Dictated by : BRAYAN LILLY DO This examination was interpreted and the report reviewed and electronically signed by: BRAYAN LILLY DO on Jun 17 2024 2:34PM EST [id number] Normal [facility] XR Chest PA and Lateralon IMPRESSION: No acute radiographic abnormality. Labor Relations Analyst: [facility] Transcribe Date/Time: Jun 17 2024 2:33P [...] Unremarkable. DIVISION OF RADIOLOGY Provider, Mike Delgado [facility] - 06/17/2024 * * *Final Report* * [...] Unremarkable. IMPRESSION IMPRESSION: No acute radiographic abnormality. Labor Relations Analyst: [facility] Transcribe Date/Time: Jun 17 2024 2:33P Dictated by : BRAYAN LILLY DO This examination was interpreted and the report reviewed and electronically signed by: BRAYAN LILLY DO on Jun 17 2024 2:34PM EST [facility] Radiology Study observation (narrative) [facility] XR Chest PA and LateralOrder ed By: Ccf Provider on 06-17-2024 [facility] COVID-19, MOLECULARon 2024 SARS-CoV-2 (COVID-19) Ab IA Ql Not detected Normal Not Detected [facility] Comment on above: Result Comment: Test ing was performed using the [employer] ID NOW COVID-19 assay on the ID NOW platform. This test has not been approved for use in asymptomatic patients and its performance in this patient population has not been evaluated. Negative results do not rule out the presence of SARS-CoV-2/COVID-19. MR/BMS.BPon 06-04-2024 MR/BMS.BP [facility] [address] [place] [address], [address] [place] [address] OFFICE VISIT Date of Service: 06/04/24 MR#: [id number] Acct: [id number] Name: REUBEN SAPP Rep #: [id number] : 1975 Provider: KRISTIAN monroe Age/Sex: 49/M Location: [facility].BP Status: Signed Intake Vital Signs 05/05/24 10:32 [...] recently. Does feel at times they are "too happy". Sleep has been fine. Has been trying [...] Behavior MS (more content not included)... Normal [facility] MR/BMS.BPon 05-05-2024 MR/BMS.BP [facility] ry [address], [address] [place] [address] OFFICE VISIT Date of Service: 05/05/24 MR#: [id number] Acct: [id number] Name: REUBEN SAPP Rep #: [id number] : 1975 Provider: KRISTIAN monroe Age/Sex: 49/M Location: [facility].BP Status: Signed Intake Vital Signs 03/24/24 10:20 [...] [facility] focus on LBGTQ+ community and [...] x3 M (more content not included)... Normal [facility] DENZEL SCREENING W TOMOon 04-13 DENZEL SCREENING W YESSENIA * * *Final Report* * * DATE OF EXAM: Apr 13 2024 4:21PM ELLA 0582 - DENZEL SCREENING W YESSENIA / PROCEDURE REASON: screen * * * * Physician Interpretation * * * * [place] [id number] #[id number] - DENZEL SCREENING W YESSENIA HISTORY: Patient [...] Jossie Soliman M.D. Electronically signed on: 04/14/2024 Labor Relations Analyst: FELICIANO Transcribe Date/Time: Apr 13 2024 4:04P Dictated by : JOSSIE SOLIMAN MD This examination was interpreted and the report reviewed and electronically signed by: JOSSIE SOLIMAN MD on Apr 14 2024 12:32PM EST [id number] Normal [facility] Absolute lymphocyte countOrd ered By: Nashelizabeth Geller on 02-08-2023 Lymphocytes Auto (Unsp spec) [#/Vol] 2.33 10*3/uL 0.83-4.51 [facility] Basophil percentageOrdered B y: Nash Geller on 02-08-2023 Basophils/100 WBC (Bld) 1.5 % 0-1 [facility] Bilirubin [Mass/Vol] 0.20 mg/dL 0.20-1.00 [facility] Comment on above: For patients on eltr ombopag therapy, use of Dimension Fries TBIL is not recommended. Chloride [Moles/Vol] 107 mmol/L 98-107 [facility] Eosinophils/100 WBC (Bld) 4.0 % 0-5 [facility] Glucose [Mass/Vol] 105 mg/dL 74-106 [facility] Comment on above: Fasting Glucose resu lt from 100 to 125 mg/dL suggests IMPAIRED HOMEOSTASIS per A.D.A. criteria. Neutrophils (Bld) [#/Vol] 4.5 10*3/uL 2.0-7.7 [facility] Neutrophils/100 WBC (Bld) 55.7 % 47-70 [facility] Potassium [Moles/Vol] 3.7 mmol/L 3.5-5.1 [facility] Protein [Mass/Vol] 7.2 g/dL 6.4-8.2 [facility] Sodium [Moles/Vol] 135 mmol/L 136-145 [facility] WBC (Bld) [#/Vol] 8.0 10*3/uL 4.4-11.0 [facility] Blood erythrocytes count (nu mber/volume)Ordered By: Nash Geller on 02-08-2023 RBC (Bld) [#/Vol] 4.55 10*6/uL 4.6-6.2 [facility] Blood hemoglobin measurement (mass/volume)Ordered By: Nash Geller on 02-08-2023 Hemoglobin (Bld) [Mass/Vol] 14.0 g/dL 13.0-16.5 [facility] Blood lymphocytes/100 leukoc ytesOrdered By: Nash Geller on 02-08-2023 Lymphocytes/100 WBC (Bld) 29.1 % 19-41 [facility] Blood monocytes/100 leukocyt esOrdered By: Nashelizabeth Geller on 02-08-2023 Monocytes/100 WBC (Bld) 9.2 % 0-10 [facility] Blood platelet mean volumeOr dered By: Nashelizabeth Geller on 02-08-2023 Platelet mean volume (Bld) [Entitic vol] 9.0 fL 6.2-12.0 [facility] Determination of erythrocyte mean corpuscular volume (MCV)Ordered By: Nash Geller on 02-08-2023 MCV (RBC) [Entitic vol] 92.1 fL 80-94 [facility] Glucose Glucometer (dC) [M ass/Vol]Ordered By: Nashelizabeth Geller on 02-08-2023 Glucose [Mass/Vol] 118 mg/dL 74-106 [facility] Comment on above: MANAGEMENT OF PATIEN T CARE PER NURSING PROTOCOL Hematocrit Auto (Bld) [Volum e fraction]Ordered By: Nash Geller on 02-08-2023 Hematocrit (Bld) [Volume fraction] 41.9 % 40-54 [facility] - Chemistry and C hemistry - challengeOrdered By: Nashelizabeth Geller on 02-08-2023 ALP [Catalytic activity/Vol] 97 U/L 45-117 [facility] ALT [Catalytic activity/Vol] 34 U/L 16-61 [facility] CO2 [Moles/Vol] 23.0 mmol/L 21.0-32.0 [facility] Globulin (S) [Mass/Vol] 3.5 g/dL 2.2-4.2 [facility] Urea nitrogen/Creatinine [Mass ratio] 17.0 mg/mg 10-20 [facility] - Hematology and Cell countsOrdered By: Nash Geller on 02-08-2023 Erythrocyte distribution width (RBC) [Entitic vol] 46.0 fL 35.1-43.9 [facility] Erythrocyte distribution width (RBC) [Ratio] 13.4 % 11.6-14.6 [facility] Immature granulocytes/100 WBC (Bld) 0.500 % 0.0-0.9 [facility] Comment on above: IG% - Immature Granu locytes (promyelocytes, myelocytes and metamyelocytes) > 1% indicates that a LEFT SHIFT is Present. MCH (RBC) [Entitic mass] 30.8 pg 27.0-32.0 [facility] Nucleated RBC/100 WBC (Bld) [Ratio] 0 % 0-5 [facility] MCHC Auto (RBC) [Mass/Vol]Or dered By: Nash Geller on 02-08-2023 MCHC (RBC) [Mass/Vol] 33.4 g/dL 32-36 [facility] No Panel InformationOrdered By: Nash Geller on 02-08-2023 Estimated Creatinine Clearance Calc 78.81 ml/min [facility] Estimated GFR (MDRD) Amer 95 mL/min >60 [facility] Comment on above: GFR Calc Estimated GFR (MDRD) Non-Af Amer 79 mL/min >60 [facility] Comment on above: Non- GFR Calc Platelets bldOrdered By: Nash Geller on 02-08-2023 Platelets (Bld) [#/Vol] 311 10*3/uL 150-450 [facility] Serum or plasma albumin latasha urement (mass/volume)Ordered By: Nash Geller on 02-08-2023 Albumin [Mass/Vol] 3.7 g/dL 3.2-5.0 [facility] Serum or plasma albumin/glob ulin mass ratioOrdered By: Nashelizabeth Geller on 02-08-2023 Albumin/Globulin [Mass ratio] 1.1 {ratio} 0.9-2.4 [facility] Serum or plasma calcium latasha urement (mass/volume)Ordered By: Nash Geller on 02-08-2023 Calcium [Mass/Vol] 8.9 mg/dL 8.5-10.1 [facility] Serum or plasma creatinine m easurement (mass/volume)Ordered By: Nash Geller on 02-08-2023 Creatinine [Mass/Vol] 1.06 mg/dL 0.70-1.30 [facility] Comment on above: The validity of the calculated GFR & GFRAA in patients over 70 years has not been determined. Clinical correlation is essential. Serum or plasma urea nitroge n measurement (mass/volume)Ordered By: Nash Geller on 02-08-2023 Urea nitrogen [Mass/Vol] 18 mg/dL 7-18 [facility] Thin prep Papanicolaou smear with manual screeningOrdered By: Nash Geller on 02-08-2023 Thin prep Papanicolaou smear with manual screening 14 U/L 15-37 [facility] Thin prep Papanicolaou smear with manual screening 5 5-15 [facility] FINGERLTon [address] [address] XRay Report Signed Patient Name: Reuben Paz Re cord #: [id number] Date of : 1975 Account #:[id number] Age/Sex: 47 / M Location: [facility] Attending physician: Susie Rinaldi CNP [...] Sandhu MD Signed By: 05/01/22 1142 DD/ 38 TD/TT: 05/01/221138 Labor Relations Analyst: MICHAEL Exam/Order Verified? Y Exam Explained to Patient/Family? Y Was Patient Shielded? N Is Patient ? Consent Form Completed? Hx Last Menstrual Period: Does Patient have a Diabetic Device? No Diabetic Device Type: Was the Diabetic Device Removed? If NO: was Removal Consent form completed? Verified by Technologist:[id number] Comment: [id number] cc: Susie Rinaldi, LOGISTICS TEAM LEAD PCP,No Normal [facility] US ABDOMEN RENALon US ABDOMEN RENAL Patient [...] Evan Knutson MD On: 08/09/2020 4:23 PM [facility] Covid-19 Priorityon 08-06-19 21 Inpatient Comment [facility] Comment on above: Order Comment: Testi ng performed at: [CB] [facility], [address] [place], [address], , Aircraft Powertrain Repairer: Ryan Resendez, PhD Testing performed at: [COCIN] [facility], [employer] [place], [address], , Aircraft Powertrain Repairer: Guru Valle MD Reported Source: NASAL SWAB Reported Clinical Info Relevant to Order: SRC:NASAL SWAB [place] Order: [id number] Result Comment: Rece ived Novel Coronavirus (Covid-19) , NAAon 08-05-2020 SARS-CoV-2, JOSH Not Detected Normal Not Detected [facility] Comment on above: Order Comment: Testi ng performed at: [] [facility], [address] [place], [address], , Aircraft Powertrain Repairer: Ryan Resendez, PhD Testing performed at: [COCIN] [facility], [address] [facility], [facility] [place], [address], , Aircraft Powertrain Repairer: Guru Valle MD Reported Source: NASAL SWAB Reported Clinical Info Relevant to Order: SRC:NASAL SWAB [place] Order: [id number] Result Comment: This nucleic acid amplification test was developed and its performance characteristics determined by [employer]. Nucleic acid amplification tests include RT- PCR [...] results FINAL SURGICAL PATHOLOGY REPORT 1. NETTIE: [id number] Testing performed at [facility], [address] [place] [address] Host Order: [id number] DIAGNOSIS: 1. COLON, "TWO POLYPS" DESCENDING, BIOPSY: -TUBULAR ADENOMA 2. COLON, SIGMOID [...] formalin, in a container labeled Reuben Carreno, [facility] 1973, #1-two polyps in descending colon." The specimen is retrieved from an included filter device. The specimen consists of two mcneil fragments ranging in size from 0.3 to 0.6 centimeters. The specimen is submitted in a single cassette. 2. The specimen is received in formalin, in a container labeled Reuben Carreno, [facility] 1973, #2-sigmoid colon polyp." The specimen consists of four mcneil fragments ranging in size from 0.2 to 0.3 centimeters. The specimen is submitted in a single cassette. Electronically Signed by HUNTER Tate MD 04/05/2020 16:32 Billing Codes: 1. [id number] (x2), [id number] (x2) [facility] Comment on above: Order Comment: NETTIE: [id number] Testing performed at [facility], [address] [place] [address] Host Order: [id number] Novel Coronavirus (Covid-19) , NAAon 03-25-2020 SARS-CoV-2, JOSH Not Detected Normal Not Detected [facility] Comment on above: Order Comment: Brisa dalal performed at: [facility]TG[facility], [address] [place], [address], , Aircraft Powertrain Repairer: Vanita Pope Reported Source: NASAL SWAB Reported Clinical Info Relevant to Order: SRC:NASAL SWAB [place] Order: [id number] Result Comment: This nucleic acid amplification test was developed and its performance characteristics determined by [facility]. Nucleic acid amplification tests include PCR and [...] Edward Canchola MD On: 03/21/2020 10:26 AM [facility] Hemoglobin A1Con 01-13-2020 HbA1c (Bld) [Mass fraction] 103 mg/dL Normal [facility] Comment on above: Order Comment: Testi ng performed at [facility], [address] [place] [address] [place] Order: [id number] HbA1c (Bld) [Mass fraction] 5.2 % Normal 4.0-6.0 [facility] Comment on above: Order Comment: Testi ng performed at [facility], [address] [place] [address] [place] Order: [id number] Result Comment: The [place] Diabetes Association recommends that the goal of therapy should be a Hemoglobin A1C of <7% and that the physician should recommend the treatment regimen in patients with values consistently >8%. Lipid Profileon 01-13-2020 Cholesterol [Mass/Vol] 224 mg/dL High 0-200 [facility] Comment on above: Order Comment: Testi ng performed at [facility], [address] [place] [address] [place] Order: [id number] Result Comment: Refe rence ranges recommended by the National Cholesterol Education Program <200 Desirable 200-239 Borderline High >240 High Cholesterol in HDL [Mass/Vol] 54 mg/dL Normal [facility] Comment on above: Order Comment: Testi ng performed at [facility], [address] [place] [address] [place] Order: [id number] Result Comment: <40 Major risk factor in CHD for males <50 Major risk factor in CHD for females >60 Negative risk factor for males and females Cholesterol in LDL [Mass/Vol] 130 mg/dL Normal [facility] Comment on above: Order Comment: Testi ng performed at [facility], [address] [place] [address] [place] Order: [id number] Result Comment: <100 Optimal 100-129 Near optimal/above optimal 130-159 Borderline High 160-189 High >190 Very high LDL-C values may be decreased when the Triglycerides are >200. Cholesterol.total/Chol esterol in HDL [Mass ratio] 4.1 {ratio} Normal 3.9-4.7 [facility] Comment on above: Order Comment: Testi ng performed at [facility], [address] [place], [place] [id number] [place] Order: [id number] Result Comment: Ifrah nary Heart Disease Risk: Male Female Risk 3.4 3.3 0.5 x Average 5.0 4.4 1.0 x Average 9.6 7.1 2.0 x Average 13.5 11.0 3.0 x Average Hours Fasting? patient not fasting per doctors orders Normal [facility] Comment on above: Order Comment: Testi ng performed at [facility], [address] [place] [address] [place] Order: [id number] Triglyceride [Mass/Vol] 200 mg/dL High 0-150 [facility] Comment on above: Order Comment: Testi ng performed at [facility], [address] [place] [address] [place] Order: [id number] Result Comment: Refe rence ranges recommended by the National Cholesterol Education Program. <150 Normal <200 Normal in a Non-fasting specimen* 150-199 Borderline High 200-499 High >=500 Very High *Triglyceride values >200 in a non-fasting specimen, recommend repeat testing after an 8-12 hour fast. VLDL, Calculated 40 mg/dL High 7-32 [facility] Comment on above: Order Comment: Testi ng performed at [facility], [address] [place] [address] [place] Order: [id number] Vital Signs Date Time Vital Sign Value Performing Clinician Facility 10-16-2024 10:37-0400 Body height 167.6 cm Opal Kenny APRN, CNP Work Phone: [facility] Work Phone: 10-16-2024 10:37-0400 Body temperature 97.5 [degF] Opal Kenny APRN, CNP Work Phone: [facility] Work Phone: 10-16-2024 10:37-0400 Body weight 96.8 kg Opal Kenny APRN, CNP Work Phone: [facility] Work Phone: 10-16-2024 10:37-0400 Diastolic blood pressure 88 mm[Hg] Opal Kenny APRN, CNP Work Phone: [facility] Work Phone: 10-16-2024 10:37-0400 Heart rate 71 /min Opal Grace PARRISH CNP Work Phone: [facility] Work Phone: 10-16-2024 10:37-0400 Respiratory rate 16 /min Opal Grace PARRISH,LOGISTICS TEAM LEAD Work Phone: [facility] Work Phone: 10-16-2024 10:37-0400 SaO2% (BldA) [Mass fraction] 97 % Opal Queenblanc SHIVANI,LOGISTICS TEAM LEAD Work Phone: [facility] Work Phone: 10-16-2024 10:37-0400 Systolic blood pressure 122 mm[Hg] Opal Grace PARRISH,LOGISTICS TEAM LEAD Work Phone: [facility] Work Phone: 07-09-2024 16:12-0500 Body mass index (BMI) [Ratio] 33.78 kg/m2 Minerva Praisler-Wood BICYCLE TECHNICIAN.LOGISTICS TEAM LEAD Work Phone: [facility] 07-09-2024 16:12-0500 Body temperature 97.59 [degF] Minerva Praisler-Wood BICYCLE TECHNICIAN.LOGISTICS TEAM LEAD Work Phone: [facility] 07-09-2024 16:12-0500 Body weight 97.5 kg Minerva Praisler-Wood BICYCLE TECHNICIAN.LOGISTICS TEAM LEAD Work Phone: [facility] 07-09-2024 16:12-0500 Diastolic blood pressure 85 mm[Hg] Minerva Praisler-Wood BICYCLE TECHNICIAN.LOGISTICS TEAM LEAD Work Phone: [facility] 07-09-2024 16:12-0500 Heart rate 67 /min Minerva Praisler-Wood BICYCLE TECHNICIAN.LOGISTICS TEAM LEAD Work Phone: [facility] 07-09-2024 16:12-0500 Respiratory rate 18 /min Minerva Praisler-Wood BICYCLE TECHNICIAN.LOGISTICS TEAM LEAD Work Phone: [facility] 07-09-2024 16:12-0500 SaO2% (BldA) [Mass fraction] 100 % Minerva Praisler-Wood BICYCLE TECHNICIAN.LOGISTICS TEAM LEAD Work Phone: [facility] 07-09-2024 16:12-0500 Systolic blood pressure 133 mm[Hg] Minerva Praisler-Wood BICYCLE TECHNICIAN.LOGISTICS TEAM LEAD Work Phone: [facility] 07-04-2024 11:28-0500 Body mass index (BMI) [Ratio] 33.92 kg/m2 Emely Armand BICYCLE TECHNICIAN.LOGISTICS TEAM LEAD Work Phone: [facility] 07-04-2024 11:28-0500 Body temperature 97.11 [degF] Emely Armand BICYCLE TECHNICIAN.LOGISTICS TEAM LEAD Work Phone: [facility] 07-04-2024 11:28-0500 Body weight 97.9 kg Emely Armand BICYCLE TECHNICIAN.LOGISTICS TEAM LEAD Work Phone: [facility] 07-04-2024 11:28-0500 Diastolic blood pressure 84 mm[Hg] Emely Armand BICYCLE TECHNICIAN.LOGISTICS TEAM LEAD Work Phone: [facility] 07-04-2024 11:28-0500 Heart rate 78 /min Emely Armand BICYCLE TECHNICIAN.LOGISTICS TEAM LEAD Work Phone: [facility] 07-04-2024 11:28-0500 Respiratory rate 16 /min Emely Armand BICYCLE TECHNICIAN.LOGISTICS TEAM LEAD Work Phone: [facility] 07-04-2024 11:28-0500 SaO2% (BldA) [Mass fraction] 99 % Emely Armand BICYCLE TECHNICIAN.LOGISTICS TEAM LEAD Work Phone: [facility] 07-04-2024 11:28-0500 Systolic blood pressure 118 mm[Hg] Emely Armand BICYCLE TECHNICIAN.LOGISTICS TEAM LEAD Work Phone: [facility] 07-02-2024 13:24-0500 Body mass index (BMI) [Ratio] 34.02 kg/m2 Holden Rogers MD Work Phone: [facility] 07-02-2024 13:24-0500 Body temperature 98.2 [degF] Holden Rogers MD Work Phone: [facility] 07-02-2024 13:24-0500 Body weight 98.2 kg Holden Rogers MD Work Phone: [facility] 07-02-2024 13:24-0500 Diastolic blood pressure 86 mm[Hg] Holden Rogers MD Work Phone: [facility] 07-02-2024 13:24-0500 Heart rate 67 /min Holden Rogers MD Work Phone: [facility] 07-02-2024 13:24-0500 Respiratory rate 18 /min Holden Rogers MD Work Phone: [facility] 07-02-2024 13:24-0500 SaO2% (BldA) [Mass fraction] 99 % Holden Rogers MD Work Phone: [facility] 07-02-2024 13:24-0500 Systolic blood pressure 128 mm[Hg] Holden Rogers MD Work Phone: [facility] 06-17-2024 14:11-0500 Body mass index (BMI) [Ratio] 32.98 kg/m2 Myesha Ortiz BICYCLE TECHNICIAN.LOGISTICS TEAM LEAD Work Phone: [facility] 06-17-2024 14:11-0500 Body temperature 98.2 [degF] Myesha Ortiz BICYCLE TECHNICIAN.LOGISTICS TEAM LEAD Work Phone: [facility] 06-17-2024 14:11-0500 Body weight 95.2 kg Myesha Ortiz BICYCLE TECHNICIAN.LOGISTICS TEAM LEAD Work Phone: [facility] 06-17-2024 14:11-0500 Diastolic blood pressure 100 mm[Hg] Myesha Ortiz BICYCLE TECHNICIAN.LOGISTICS TEAM LEAD Work Phone: [facility] 06-17-2024 14:11-0500 Heart rate 78 /min Myesha Ortiz BICYCLE TECHNICIAN.LOGISTICS TEAM LEAD Work Phone: [facility] 06-17-2024 14:11-0500 Respiratory rate 20 /min Myesha Ortiz BICYCLE TECHNICIAN.LOGISTICS TEAM LEAD Work Phone: [facility] 06-17-2024 14:11-0500 SaO2% (BldA) [Mass fraction] 98 % Myesha Ortiz BICYCLE TECHNICIAN.LOGISTICS TEAM LEAD Work Phone: [facility] 06-17-2024 14:11-0500 Systolic blood pressure 148 mm[Hg] Myesha Ortiz BICYCLE TECHNICIAN.LOGISTICS TEAM LEAD Work Phone: [facility] 02-08-2023 16:17-0400 Body height 170.18 cm [facility] 02-08-2023 16:17-0400 Body mass index (BMI) [Ratio] 31.7 kg/m2 [facility] 02-08-2023 16:17-0400 Body weight 91.85 kg [facility] 02-08-2023 15:45-0400 Body temperature 96.5 [degF] [facility] 02-08-2023 15:45-0400 Diastolic blood pressure 96 mm[Hg] [facility] 02-08-2023 15:45-0400 Heart rate 77 /min [facility] 02-08-2023 15:45-0400 Respiratory rate 18 /min [facility] 02-08-2023 15:45-0400 SaO2% (BldA) [Mass fraction] 99 % [facility] 02-08-2023 15:45-0400 Systolic blood pressure 139 mm[Hg] [facility] Encounters Encounter Date Encounter Type Care Provider Facility Start: 04-23-2025 ambulatory [facility] Start: 03-31-2025 End: 03-31-2025 ambulatory Keke Jackson Facility:[facility] Start: 03-29-2025 End: 03-29-2025 [facility] Start: 03-29-2025 End: 03-29-2025 [facility] LOVEAryan Facility:[facility] Start: 03-29-2025 End: 03-29-2025 Emergency department patient visit KEKE JACKSON Facility:[facility] Start: 03-19-2025 End: 03-19-2025 ambulatory Aranza Ungerer Facility:[facility] Start: 03-01-2025 End: 03-01-2025 ambulatory Aspen Montgomery Facility:[facility] Start: 02-12-2025 ambulatory Efelijahongbe Olehermane Facili ty:[facility] Start: 01-15-2025 End: 01-15-2025 ambulatory Efelijahongbe Olehermane Facility:[facility] Start: 01-14-2025 ambulatory Efelijahongbe Olehermane Facili ty:[facility] Start: 01-12-2025 End: 01-12-2025 ambulatory JAZLYN BELLO Facility:[facility] Start: 01-01-2025 End: 01-01-2025 ambulatory Magalisprentisslina Jackson Facility:[facility] Start: 12-31-2024 ambulatory Efelijahonglina Kramere Facili ty:[facility] Start: 12-31-2024 End: 12-31-2024 [facility] Start: 12-28-2024 End: 12-28-2024 ambulatory [facility] Facility:[facility] Start: 12-18-2024 End: 12-18-2024 [facility] Start: 12-18-2024 End: 12-18-2024 [facility] Start: 12-09-2024 End: 12-09-2024 ambulatory Efelijahprentisslina Kramere Facility:[facility] Start: 11-06-2024 End: 11-06-2024 Emergency department patient visit Rakesh Broderick Facility:[facility] Start: 11-06-2024 End: 11-06-2024 Patient encounter procedure Buddy Temple APRN.LOGISTICS TEAM LEAD Work Phone: [facility] Comment on above: Chest pain, unspecif ied type (Primary Dx) Start: 11-06-2024 End: 11-06-2024 ambulatory ELIJAHLAKELANDLINA LOVEAryan Facility:[facility] Start: 11-05-2024 Encounter for genera l adult medical examination without abnormal findings elijahprentisslina Lovee [facility] Start: 11-04-2024 End: 11-04-2024 ambulatory [facility] Facility:[facility] Start: 10-30-2024 End: 10-30-2024 ambulatory [facility] Facility:[facility] Start: 10-30-2024 End: 10-30-2024 ambulatory [facility] Facility:[facility] Start: 10-16-2024 End: 10-16-2024 Office outpatient visit 25 minutes Opal Kenny APRN, CNP Work Phone: [facility] Comment on above: Gender dysphoria (Pr imary Dx); Hair thinning Start: 10-13-2024 End: 10-13-2024 ambulatory [facility] Start: 09-10-2024 End: 09-10-2024 ambulatory [facility] Facility:[facility] Start: 08-26-2024 End: 08-26-2024 ambulatory [facility] Start: 07-16-2024 End: 07-16-2024 ambulatory [facility] Facility:[facility] Start: 07-10-2024 End: 07-10-2024 ambulatory [facility] Start: 07-09-2024 End: 07-09-[address] [facility] Facility:[facility] Start: 07-09-2024 End: 07-09-2024 Office outpatient visit 15 minutes Minerva Easton APRN.CNP Work Phone: [facility] Comment on above: Acute right-sided lo w back pain with right-sided sciatica (Primary Dx) Start: 07-06-2024 End: 07-06-2024 ambulatory [facility] Start: 07-05-2024 End: 07-05-2024 ambulatory Yuko Ross RN NURSE SENIOR IT AUDITOR Comment on above: Syncope Start: 07-05-2024 End: 07-05-2024 Emergency department patient visit JAZLYN BELLO Facility:[facility] Start: 07-04-2024 End: 07-04-[address] [facility] Facility:[facility] Start: 07-04-2024 End: 07-04-2024 Patient encounter procedure Emely Acuna APRN.LOGISTICS TEAM LEAD Work Phone: [facility] Comment on above: URI with cough and c ongestion (Primary Dx); Flu-like symptoms; Wheezing Start: 07-02-2024 End: 07-02-2024 Office outpatient visit 25 minutes Holden Rogers MD Work Phone: [facility] Comment on above: Acute cough (Primary Dx) Start: 07-02-2024 End: 07-02-2024 ambulatory BRENT CROCKER Facility:[facility] Start: 07-02-2024 End: 07-02-2024 Subsequent hospital visit by physician Xr [facility] Work Phone: Radiology Comment on above: Acute cough [R05.1] Start: 06-17-2024 End: 06-17-2024 Subsequent hospital visit by physician Xr [facility] [facility] Work Phone: Radiology Comment on above: Acute cough [R05.1] Start: 06-17-2024 End: 06-17-2024 ambulatory MYESHA BRETT Facility:[facility] Start: 06-17-2024 End: 06-17-2024 Patient encounter procedure Myesha Ortiz APRN.LOGISTICS TEAM LEAD Work Phone: [facility] Comment on above: URI, acute (Primary Dx); Acute cough; History of asthma Start: 06-15-2024 End: 06-15-2024 ambulatory TIANNA CONTI [facility] Start: 06-04-2024 End: 06-04-2024 ambulatory No Primary Care Physician Facility:[facility] Start: 05-05-2024 End: 05-05-2024 ambulatory No Primary Care Physician Facility:[facility] Start: 04-13-2024 ambulatory OPAL MAK acility:[facility] Start: 04-13-2024 End: 04-13-2024 Subsequent hospital visit by physician Screen Mammo [facility] Comment on above: z12.31 Start: 12-11-2023 End: 12-11-2023 ambulatory BRENT CROCKER [facility]ulatory Start: 08-23-2023 End: 08-23-2023 Office outpatient visit 25 minutes Opal Kenny APRN,LOGISTICS TEAM LEAD Work Phone: [facility] Comment on above: Gender dysphoria (Pr imary Dx); Hair thinning Start: 05-02-2023 End: 05-02-2023 ambulatory PANKAJ Garcia [facility] Start: 2023 End: 2023 Office outpatient visit 15 minutes Opal Kenny APRN, CNP Work Phone: [facility] Comment on above: Gender dysphoria (Pr imary Dx) Start: 02-08-2023 End: 02-08-2023 Emergency department patient visit [facility] Work Phone: Start: 11-21-2022 End: 11-21-2022 Office outpatient visit 25 minutes Opal Kenny APRN, CNP Work Phone: [facility] Comment on above: Gender dysphoria (Pr imary Dx) Start: 08-22-2022 End: 08-22-2022 Office outpatient visit 25 minutes Opal Kenny APRN, CNP Work Phone: [facility] Comment on above: Gender dysphoria (Pr imary Dx) Start: 2022 End: 2022 ambulatory No PCP Facility:[facility] Start: 2022 End: 2022 ambulatory No PCP [facility] Work Phone: Start: 2022 End: 2022 Patient encounter procedure No PCP [facility] Procedures Date Procedure Procedure Detail Performing Clinician Start: 07-02-2024 Radiologic exam ches t 2 views Holden Rogers MD Work Phone: Start: 06-17-2024 Radiologic exam ches t 2 views Myesha Ortiz APRN.LOGISTICS TEAM LEAD Work Phone: Start: 2022 Plain X-ray of finger N o PCP Plan of Treatment Date Care Activity Detail Author Start: 10-19-2031 Tetanus vaccination [facility] [employer] Start: 10-19-2031 Urine microalbumin profile DTaP,Tdap,Td Vaccine (4 - Td or Tdap) [facility] Start: 04-08-2028 Screening for malign ant neoplasm of colon [facility] Start: 08-23-2027 Diabetes Screening Diabetes Screenin g [facility] Start: 05-22-2027 Diabetes Screening Diabetes Screenin g [facility] Start: 12-10-2026 Diabetes Screening Diabetes Screenin g [facility] Start: 04-13-2026 Screening for malign ant neoplasm of breast Breast Cancer [facility] ([facility]) [facility] [employer] Start: 10-16-2025 Hypertension screening Hyperte nsion Screening (#1) [facility] [employer] Start: 10-16-2025 Tobacco Screening Tobacco Screening [email or web address] Start: 08-22-2025 Diabetes mellitus screening Diabetes Screening [facility] Start: 01-18-2025 Influenza vaccination [employer] Start: 01-16-2025 Depression Monitoring Depression [facility] [employer] Start: 10-17-2024 End: 10-16-2025 Assay of estradiol ASSAY OF TOTAL ESTRADIOL Routine Lab Routine Gender dysphoria Expected: 10/17/2024, Expires: 10/16/2025 [facility] Work Phone: Comment on above: Expected: 10/17/2024 , Expires: 10/16/2025 Start: 10-17-2024 End: 10-16-2025 Assay of testosterone total ASSAY OF TESTOSTERONE TOTAL Routine Lab Routine Gender dysphoria Expected: 10/17/2024, Expires: 10/16/2025 [facility] Phone: Comment on above: Expected: 10/17/2024 , Expires: 10/16/2025 Start: 10-17-2024 End: 10-16-2025 Comprehensive metabolic panel COMPREHENSIVE METABOLIC PANEL Routine Lab Routine Gender dysphoria Expected: 10/17/2024, Expires: 10/16/2025 [facility] Phone: Comment on above: Expected: 10/17/2024 , Expires: 10/16/2025 Start: 07-31-2024 Diabetes mellitus screening Diabetes Screening [facility] Start: 02-07-2024 Hepatitis C screening Hepatitis C Sc reening [facility] Comment on above: Postponed from 05/01 (Patient declines) Start: 02-07-2024 Screening for malign ant neoplasm of colon Colorectal Cancer Screening [facility] Comment on above: Postponed from 05/01 (Pending outside records) Start: 02-07-2024 Thyroid stimulating hormone measurement TSH Monitoring [facility] Comment on above: Postponed from 05/01 (Pending outside records) Start: 02-07-2024 Tobacco Screening Tobacco Screening [facility] Start: 02-01-2024 Diabetes mellitus screening Diabetes Screening [facility] Start: 01-19-2024 Covid-19 Vaccine () Covid-19 Vaccine () [facility] Start: 01-19-2024 Influenza vaccination [email or web address] Start: 11-22-2023 Depression Monitoring Depression [email or web address] Start: 11-14-2023 Diabetes mellitus screening Diabetes Screening [facility] Start: 08-24-2023 End: 08-20-2024 Assay of estradiol ASSAY OF TOTAL ESTRADIOL Lab Routine Gender dysphoria Expected: 08/24/2023, Expires: 08/20/2024 [facility] Work Phone: Comment on above: Expected: 08/24/2023 , Expires: 08/20/2024 Start: 08-24-2023 End: 08-20-2024 Assay of testosterone total ASSAY OF TESTOSTERONE TOTAL Lab Routine Gender dysphoria Expected: 08/24/2023, Expires: 08/20/2024 [facility] Phone: Comment on above: Expected: 08/24/2023 , Expires: 08/20/2024 Start: 08-24-2023 End: 08-20-2024 Comprehensive metabolic panel COMPREHENSIVE METABOLIC PANEL Lab Routine Gender dysphoria Expected: 08/24/2023, Expires: 08/20/2024 [facility] Work Phone: Comment on above: Expected: 08/24/2023 , Expires: 08/20/2024 Start: 05-08-2023 Depression Monitoring Depression [email or web address] Start: 05-08-2023 Hepatitis B vaccination Imm-He patitis B (1 of 3 - 3-dose series) [facility] Comment on above: Postponed from 05/01 (Patient declines) Start: 05-08-2023 HIV Screening HIV Screening [facility] Comment on above: Postponed from 05/01 (Patient declines) Start: 2023 Imm-Zoster, Recombin ant (1 of 2) Imm-Zoster, Recombinant (1 of 2) [facility] Start: 2023 Screening for malign ant neoplasm of breast Breast Cancer Screening (Mammogram) [facility] Start: 2023 Shingrix Vaccine (1 of 2) Shingrix Vaccine (1 of 2) [facility] Start: 02-21-2023 End: 05-24-2023 Assay of estradiol ASSAY OF TOTAL ESTRADIOL Lab Routine Gender dysphoria Expected: 02/21/2023, Expires: 05/24/2023 [facility] Work Phone: Comment on above: Expected: 02/21/2023 , Expires: 05/24/2023 Start: 02-21-2023 End: 05-24-2023 Assay of testosterone total ASSAY OF TESTOSTERONE TOTAL Lab Routine Gender dysphoria Expected: 02/21/2023, Expires: 05/24/2023 [facility] Phone: Comment on above: Expected: 02/21/2023 , Expires: 05/24/2023 Start: 02-21-2023 End: 05-24-2023 Comprehensive metabolic panel COMPREHENSIVE METABOLIC PANEL Lab Routine Gender dysphoria Expected: 02/21/2023, Expires: 05/24/2023 [facility] Phone: Comment on above: Expected: 02/21/2023 , Expires: 05/24/2023 Start: 01-19-2023 Hypertension screening Hyperte nsion Screening (#1) [facility] Start: 01-18-2023 Influenza vaccination Imm-Influenza (#1) [facility] Start: 08-23-2022 End: 12-22-2022 Assay of estradiol ASSAY OF TOTAL ESTRADIOL Lab Routine Gender dysphoria Expected: 08/23/2022, Expires: 12/22/2022 [employer] Phone: Comment on above: Expected: 08/23/2022 , Expires: 12/22/2022 Start: 08-23-2022 End: 12-22-2022 Assay of testosterone total ASSAY OF TESTOSTERONE TOTAL Lab Routine Gender dysphoria Expected: 08/23/2022, Expires: 12/22/2022 [facility] [employer] Work Phone: Comment on above: Expected: 08/23/2022 , Expires: 12/22/2022 Start: 08-23-2022 End: 12-22-2022 Comprehensive metabolic panel COMPREHENSIVE METABOLIC PANEL Lab Routine Gender dysphoria Expected: 08/23/2022, Expires: 12/22/2022 [email or web address] Work Phone: Comment on above: Expected: 08/23/2022 , Expires: 12/22/2022 Start: 05-20-2022 Screening for substa nce abuse Alcohol and Drug Screen [facility] Start: 04-20-2022 Depression Monitoring Depression Mon [facility] Start: 06-14-2021 Med-BYBGG-90 (4 - Booster for Pfizer series) Sbi-QCXKS-15 (4 - Booster for Pfizer series) [facility] Start: 06-14-2021 Ivx-JVHOJ-45 (4 - Pf izer series) Rce-WITBI-54 (4 - Pfizer series) [facility] Start: 2018 Screening for malign ant neoplasm of colon [facility] Start: 2008 Lipid panel Lipid Screening [facility] Start: 1992 Hepatitis B vaccination Imm-He patitis B (1 of 3 - 19+ 3-dose series) [facility] Start: 1992 Hepatitis B Vaccine (1 of 3 - 19+ 3-dose series) Hepatitis B Vaccine (1 of 3 - 19+ 3-dose series) [facility] Start: 1991 Anxiety Screening Anxiety Screening [facility] Start: 1991 Depression Screening Depression Scre lillianing [facility] Start: 1991 Hepatitis C screening Hepatitis C Sc moira [facility] Start: 1991 HIV screening HIV Screening [facility] Start: 1988 HIV Screening HIV Screening [facility] Start: 1988 Relationship Safety Screening/Counseling Relationship Safety Screening/Counseling [facility] Start: 1983 Diabetes mellitus screening Diabetes Screening [facility] Start: 1973 Anxiety Screening Anxiety Screening [facility] Start: 1973 Hepatitis B vaccination Imm-He amanda B (1 of 3 - 3-dose series) [facility] Start: 1973 Hepatitis C screening Hepatitis C Sc reening [facility] Start: 1973 Lipid panel Lipid Screening [facility] Start: 1973 Thyroid stimulating hormone measurement TSH Monitoring [facility] COVID & INFLUENZA A/ B & RSV PCR, ROUTINE COVID & INFLUENZA A/B & RSV PCR, ROUTINE Microbiology Routine URI with cough and congestion Ordered: 07/04/2024 [facility] Work Phone: Comment on above: Ordered: 07/04/2024 Patient Education Anatomy of the Brain [facility] Work Phone: Patient referral [facility] Work Phone: [facility] Immunizations Immunization Date Immunization Notes Care Provider Kristie gilbert 02-19-2022 influenza virus vaccine, unspecified formulation Opal Kenny APRN, CNP Work Phone: [facility] Work Phone: 01-23-2022 influenza, injectabl e, quadrivalent, preservative free Opal Kenny APRN, CNP Work Phone: [facility] Work Phone: 01-23-2022 PNEUMOCOCCAL CONJUGA TE PCV 20 Opal Kenny APRN, CNP Work Phone: [facility] Work Phone: 10-18-2021 tetanus toxoid, redu geovani diphtheria toxoid, and acellular pertussis vaccine, adsorbed Opal Kenny APRN, CNP Work Phone: [facility] Work Phone: 01-24-2021 influenza, injectabl e, quadrivalent, preservative free Opal Kenny BICYCLE TECHNICIAN,LOGISTICS TEAM LEAD Work Phone: [facility] Work Phone: 01-26-2020 influenza, injectabl e, quadrivalent, preservative free Opal Kenny BICYCLE TECHNICIAN,LOGISTICS TEAM LEAD Work Phone: [facility] Work Phone: 02-21-2019 influenza, injectabl e, quadrivalent, preservative free Opal Kenny BICYCLE TECHNICIAN,LOGISTICS TEAM LEAD Work Phone: [facility] [employer] Work Phone: 02-22-2018 influenza, injectabl e, quadrivalent, preservative free Opal Kenny BICYCLE TECHNICIAN,LOGISTICS TEAM LEAD Work Phone: [facility] Work Phone: 06-08-2017 influenza, injectabl e, quadrivalent, preservative free Opal Kenny BICYCLE TECHNICIAN,LOGISTICS TEAM LEAD Work Phone: [facility] Work Phone: 01-04-2016 influenza, seasonal, injectable, preservative free Opal Kenny BICYCLE TECHNICIAN,LOGISTICS TEAM LEAD Work Phone: [facility] Work Phone: 03-04-2015 influenza, seasonal, injectable, preservative free Opal Kenny BICYCLE TECHNICIAN,LOGISTICS TEAM LEAD Work Phone: [facility] [employer] Work Phone: 04-21-2013 influenza virus vaccine, unspecified formulation Opal Kenny BICYCLE TECHNICIAN,LOGISTICS TEAM LEAD Work Phone: [facility] [employer] Work Phone: 04-21-2013 influenza virus vaccine, whole virus Opal Kenny BICYCLE TECHNICIAN,LOGISTICS TEAM LEAD Work Phone: [facility] 02-20-2013 measles, mumps and rubella virus vaccine Opal Kenny BICYCLE TECHNICIAN,LOGISTICS TEAM LEAD Work Phone: [facility] Work Phone: 04-26-2010 diphtheria, tetanus toxoids and acellular pertussis vaccine, unspecified formulation Opal Queencee PARRISHLOGISTICS TEAM LEAD Work Phone: [facility] [employer] Work Phone: 04-26-2010 tetanus toxoid, redu geovani diphtheria toxoid, and acellular pertussis vaccine, adsorbed Opaljack Kenny APRNLOGISTICS TEAM LEAD Work Phone: [employer] Work Phone: Payers Date Payer Category Payer Private Health Insurance MMO SUP ERMED PPO [id number] 2023 Unknown MMO MMO SUPERMED PPO [id number] 2023-Present [phone] [address] [place] [address] PPO [id number] 2023 Private Health Insurance [id number] 2023 Unknown [id number] 2022 Private Health Insurance [id number] 2022 Private Health Insurance [id number] 2022 Self-pay 2022 Worker's Compensation [id number] 2021 Unknown MEDICAL [employer] O F [facility] [id number] 2021-Present [phone] [address] [address] [place] [address] Indemnity [id number] 2020 Private Health Insurance [id number] [id number] 1973 Unknown [id number] 2.16.840.1.049684.3.579.2. 903 1973 Unknown [id number] 2.16.840.1.881813.3.579.2. 903 1973 Unknown [id number] 2.16.840.1.152044.3.579.2. 903 1973 Unknown [id number] 2.16.840.1.551359.3.579.2. 903 1973 Unknown [id number] 2.16.840.1.409548.3.579.2. 903 1973 Unknown [id number] 2.16.840.1.361700.3.579.2. 903 1973 Unknown [id number] 2.16.840.1.175901.3.579.2. 903 1973 Unknown [id number] 2.16.840.1.159721.3.579.2. 1249 1973 Unknown [id number] 2.16.840.1.396968.3.579.2. 903 Unknown [id number] Unknown ANTHEM [id number] Unknown [id number] 2.16.840.1.778820.3.579.2. 1186 Unknown [id number] 2.16.840.1.209857.3.579.2. 462 Unknown [id number] 2.16.840.1.607332.3.579.2. 462 Unknown [id number] 2.16.840.1.956993.3.579.2. 462 Unknown [id number] 2.16.840.1.812933.3.579.2. 462 Unknown [id number] 2.16.840.1.223168.3.579.2. 462 Unknown [id number] 2.16.840.1.466045.3.579.2. 462 Unknown [id number] 2.16.840.1.846121.3.579.2. 462 Unknown [id number] 2.16.840.1.792970.3.579.2. 462 Unknown [id number] 2.16.840.1.137749.3.579.2. 462 Unknown [id number] 2.16.840.1.426931.3.579.2. 462 Unknown [id number] 2.16.840.1.161906.3.579.2. 462 Unknown [id number] 2.16.840.1.116730.3.579.2. 462 Unknown [id number] 2.16.840.1.389051.3.579.2. 462 Unknown [id number] 2.16.840.1.229510.3.579.2. 462 Unknown [id number] 2.16.840.1.057379.3.579.2. 462 Unknown [id number] 2.16.840.1.055197.3.579.2. 462 Unknown [id number] 2.16.840.1.400892.3.579.2. 462 Unknown [id number] 2.16.840.1.039712.3.579.2. 462 Unknown [id number] 2.16.840.1.799011.3.579.2. 462 Unknown [id number] 2.16.840.1.420864.3.579.2. 462 Unknown [id number] 2.16.840.1.641028.3.579.2. 462 Unknown [id number] 2.16.840.1.879137.3.579.2. 462 Unknown [id number] 2.16.840.1.472196.3.579.2. 462 Unknown [id number] 2.16.840.1.005088.3.579.2. 462 Social History Date Type Detail Facility Tobacco smoking stat us NHIS Unknown if ever smoked [facility] Work Phone: Start: 1975 Sex Assigned At Male [facility] Start: 01-19-2022 End: 06-17-2024 Tobacco smoking status NHIS Never smoked tobacco [employer] Phone: Start: 01-19-2022 End: 06-17-2024 Tobacco use and exposure Smokeless tobacco non-user [employer] Phone: Start: 01-19-2022 End: 10-16-2024 Alcohol intake Lifetime non-drinker (finding) [facility] Work Phone: Start: 08-17-2022 End: 04-13-2024 History of Social function [employer] Phone: Start: 08-17-2022 End: 04-13-2024 Social Connections [facility] Start: 11-18-2019 Social Connections a nd Isolation 2 [facility] Start: 02-08-2023 Tobacco smoking stat us NJIS Unknown if ever smoked [facility] Start: 1975 Sex assigned at Not on file [facility] History of tobacco use Passive smoker [facility] Mental Status Date Assessment Result Facility 02-08-2023 Cognitive function Awake;Alert;Appropriat e [facility] Work Phone: Clinical Notes 08-22-2022 to 03-29-2025 Buddy Temple APRN.[facility] - 11/06/2024 5:22 PM EDTSmendez Kenny APRN,[facility] - 10/16/2024 12:29 PM EDTRadha Washington MA - 10/16/2024 11:00 AM EDTSmendez Kenny APRN,LULU - 10/16/2024 11:00 AM EDT Note Date & Type Note Facility 03-29-2025 Note HNO ID: [id number] Author: HOLDEN ROGERS MD Service: ? Author Type: Physician Type: Progress Notes Filed: 03/29/2025 14:14 Note Text: URGENT CARE [facility] Reuben Carreno is a 49 year old [...] discitis, aortic aneurysm. He will go to [place] ED for further evaluation. Holden Rogers MD History and Record Review External record(s) reviewed: prior labs/imaging. Findings from review of prior labs/imaging: No renal calculi on CT scans 2019 and 2022 Differential Diagnoses - Right low back pain with sciatica - Renal calculi - Pyelonephritis - Appendicitis/diverticulitis - Abdominal aortic aneurysm Disposition The patient was transferred to ED (private vehicle, report called to [facility] ED). Procedures [facility] 11-06-2024 Note HNO ID: [id number] Author: BUDDY TEMPLE APRN.LOGISTICS TEAM LEAD Service: ? Author Type: Nurse Practitioner Type: [...] and wants to take himself. [facility] 11-06-2024 History of Present illness Narrative Patient [...] to take himself. documented in this encounter [facility] 10-16-2024 History of Present illness Narrative [...] increase spironolactone today Patient connected with in [place]. - patient today reports not seen in 3 months has felt good and reports they got to a point where things just weren't going anywhere". Went to a group therapy for trans women in [place] and found it somewhat helpful, motivated to [...] Department Center 01/13/2025 9:00 AM Opal Kenny APRN,LOGISTICS TEAM LEAD [facility] & Physical Exam Review [...] Mood normal. Rooming Note: Reuben presents to [facility] today for Gender Affirming Hormone Therapy Since [...] increase spironolactone today Patient connected with in [place]. - patient today reports not seen in 3 months has felt good and reports they got to a point where things just weren't going anywhere". Went to a group therapy for trans women in [place] and found it somewhat helpful, motivated to go back Plan: Change dose/Add new med Order labs Increase spironolactone to 100mg daily Follow up and labs in 3 months documented in this encounter [employer] Phone: 10-16-2024 Miscellaneous Notes Healthy Eating 101 [...] impact. Is believed that sugar is the "new tobacco." Recent studies show that artificial sweeteners and [...] nutrition is scarce. documented in this encounter [employer] Phone: 10-13-2024 Note DATE: 10/14/2024 CHIEF COMPLAINT: [...] been on meds in the past for "BPH" according to the patient. Has seen urology [...] No constipation, diarrhea, or fecal incontinence HISTORY: H Past Medical History: Diagnosis Date Anxiety Asthma Depression Gender identity disorder, unspecified GERD (gastroesophageal reflux disease) Hiatal hernia 10/16/2022 AFS grade IV, 2 cm type-I sliding Hypertension Hypothyroidism Incontinence of urine Interstitial cystitis Vitamin D deficiency PSH Past Surgical History: Procedure Laterality Date BIOPSY LIVER COLONOSCOPY N/A 04/18/2023 Procedure: COLONOSCOPY; Surgeon: Dago Davis MD; Location: [facility]; Service: General Surgery COLONOSCOPY W/ POLYPECTOMY 2019 [place] COLONOSCOPY W/ POLYPECTOMY 11/10/2011 CYSTO CYSTO EGD N/A 10/16/2022 Procedure: ESOPHAGOGASTRODUODENOSCOPY WITH BIOPSY, ENDO FLIP AND SHEA CHIP PLACEMENT; Surgeon: Dago Davis MD; Location: [facility]; Service: General Surgery MULTIPLE TOOTH EXTRACTIONS 10/25/2022 with cyst excision PROLONGED ACID REFLUX TEST 48H PH N/A 10/16/2022 Procedure: PROLONGED ACID REFLUX TEST 48H PH; Surgeon: Dago Davis MD; Location: [place]; Service: General Surgery SH Social History [1] [...] and Dx with IC followed up in [place] about 3 years ago and was told he did not have IC. Was on Elmiron in the past. Bothered by overactive bladder symptoms. Up multiple times per night to urinate. States that his urine stream is sometimes "small" and urinates small amounts- sounds like bladder [...] up 3 sam (more content not included)... [facility] 08-26-2024 Note OFFICE VISIT JEREMY S NOTE [...] kg (215 lb 1.6 oz) Height: 5' 7" 5' 7" BP Readings from Last 3 Encounters: 08/26/24 [...] can place a referral Talk to your [facility] health provider about using amitriptyline for this Also consider flexeril if we can't use that If you fine a hot wort settler at the [facility] to see for this I can place a referral We talked little bit about fibromyalgia Recommended treatment would be to start with physical therapy and consider using something like amitripty (more content not included)... [facility] 07-10-2024 Note OFFICE VISIT ESHAHIMANSHU Anjel NOTE Here today for Cough (Productive cough [...] kg (216 lb 6.4 oz) Height: 5' 7" BP Readings from Last 3 Encounters: 07/10/24 [...] using Flonase can be helpful or using [place] mist nasal spray And then something for the cough, qkde-rih-evjetam like NyQuil DayQuil, or Robitussin or Mucinex are all acceptable. Taking zinc up to 50 mg daily if it started early on in the illness has been shown to slightly decrease the length of time that you have the cold. Another study showed that eating [employer]'s chicken soup was as good as most medications to help with the common cold. For prevention of colds The #1 best thing is frequent handwashing Second would be the use of a energy sales broker to be sure that the utensils that go in your mouth are washed with very hot water And third would be zinc, those who took 30 to 50 mg daily for 5 months prior to cold seasons had fewer colds Relevant Medications azithromycin (Z-DAIJA) 5 day dose pack (more content not included)... [facility] 07-09-2024 Instructions Minerva Easton APRN.[facility] - 07/09/2024 4:54 PM EST ASSESSMENT/PLAN: 1. [...] or bowel control. documented in this encounter [facility] 07-09-2024 Note HNO ID: [id number] Author: MINERVA EASTON APRN.[facility] Service: ? Author [...] he passed out. Pt reports going to [place] ER to be evaluated, which he was [...] Discussed expected course of illness TEACHING PROVIDER (Physician/PA/BICYCLE TECHNICIAN) NOTE OF PERSONAL INVOLVEMENT IN CARE: I have personally seen and examined the patient and performed the medical decision-making components. I have reviewed the Advanced Practice Registered Nurse (BICYCLE TECHNICIAN) Student's documentation and verified the findings in the note as w (more content not included)... [facility] 07-09-2024 History of Present illness Narrative Subjective [...] he passed out. Pt reports going to [place] ER to be evaluated, which he was [...] Discussed expected course of illness TEACHING PROVIDER (Physician/PA/BICYCLE TECHNICIAN) NOTE OF PERSONAL INVOLVEMENT IN CARE: I have personally seen and examined the patient and performed the medical decision-making components. I have reviewed the Advanced Practice Registered Nurse (BICYCLE TECHNICIAN) Student's documentation and verified the findings in the note as written. Any additions or changes are noted in bold/italics. Signature: Minerva Easton Date: 07/09/2024 Time: 5:07 PM documented in this encounter [facility] 07-06-2024 Note Patient: Reuben Carreno : 1975 Date: 07/06/24 This 49 y.o. adult presents for No chief complaint on file. Video Visit [facility] [address] [facility] [address] [facility] [address] Video Visit [facility] 07/06/2024 Tianna Salcido CNP Provider Location: [facility] office Patient Location Public Health Outreach Worker: None Patient Location: Patient's Home Video Visit [...] there are inherent diagnostic limitations compared to dzyg-cq-dooo evaluations. We elected to proceed with the video visit telemedicine consultation. History of Present Illness: His daughter is repeating what he is whispering because he has lost his voice. Started with a cough on Saturday, 7 days ago. Saturday saw the nurse at work. Then went to [facility] was told was viral. Got x-ray to rule out pneumonia. He had wheezing. Was given Tessalon perles. He also took Robitussin. He is producing a lot of phlegm, it is green. (Dry now) Was coughing very often during the night. Maybe 40 times. Saw doctor again because the throat was really irritated. Was online from [employer]. Went back to [facility] on Saturday. Got another x-ray-no [...] He called another nurse line on Saturday morning-[facility]. Was told to go to emergency [...] so he went back to the [facility]. He wanted us to have the [...] Procedure: COLONOSCOPY; Surgeon: Dago Davis MD; Location: [facility]; Service: General Surgery COLONOSCOPY W/ POLYPECTOMY 2019 [place] COLONOSCOPY W/ POLYPECTOMY 11/10/2011 CYSTO CYSTO EGD N/A 10/16/2022 Procedure: ESOPHAGOGASTRODUODENOSCOPY WITH BIOPSY, ENDO FLIP AND SHEA CHIP PLACEMENT; Surgeon: Dago Davis MD; Location: [facility]; Service: General Surgery MULTIPLE TOOTH EXTRACTIONS 10/25/2022 with cyst excision PROLONGED ACID REFLUX TEST 48H PH N/A 10/16/2022 Procedure: PROLONGED ACID REFLUX TEST 48H PH; Surgeon: Dago Davis MD; Location: [facility]; Service: General Surgery Family History: Family [...] Drug use: Not Currently Social Drivers of [employer] (more content not included)... [facility] 07-05-2024 Telephone encounter Note Reason for Call: Patient stated he lost consciousness after a coughing attack from 9780-4997 today, his cough is worse today, and had a head injury resulting in new bruise on his head. Outcome: Patient confirmed he will seek transport to [facility] now and was advised to call 911, if needed. Reason for Disposition Any head or face injury Protocols used: Nnauzdzi-SKSET-CB [facility] 07-05-2024 Miscellaneous Notes Reason for Call: Patient stated he lost consciousness after a coughing attack from 9084-6241 today, his cough is worse today, and had a head injury resulting in new bruise on his head. Outcome: Patient confirmed he will seek transport to [facility] now and was advised to call 911, if needed. Reason for Disposition Any head or face injury Protocols used: Ngltufag-HKBWZ-DX documented in this encounter [facility] 07-04-2024 Note SARS-COV-2 (AGENT OF COVID-19) RNA: Not detected INFLUENZA A RNA: Not detected INFLUENZA B RNA: Not detected RESPIRATORY SYNCYTIAL VIRUS (RSV) RNA: Not detected [facility] Comment on above: Performed By: #### 9 [id number] ####[facility] [id number] [address] [place] 07-04-2024 Instructions Emely Acuna APRN.[facility] - 07/04/2024 [...] inability to swallow. documented in this encounter [facility] 07-04-2024 Note HNO ID: [id number] Author: EMELY ACUNA APRN.[facility] Service: ? Author Type: Nurse Practitioner Type: Progress Notes Filed: 07/04/2024 11:56 Note Text: Subjective The history is provided by the patient. No sign language teacher was used. HPI Reuben Carreno is a [...] have confirmed and edited as necessary, the [facility] Review of Systems Constitutional: Positive for malaise/fatigue. [...] detail warranting prompt ER evaluation. Emely Acuna APRN.[facility] 07-04-2024 History of Present illness Narrative Subjective The history is provided by the patient. No sign language teacher was used. HPI Reuben Carreno is a [...] have confirmed and edited as necessary, the [facility] Review of Systems Constitutional: Positive for malaise/fatigue. [...] in detail warranting prompt ER evaluation. Emely Acuan APRN.[facility] documented in this encounter [facility] 07-02-2024 History of Present illness Narrative [...] PATIENT PRESENTS WITH AN IMPLANTABLE OR ATTACHED PROCUREMENT SERVICES MANAGER: No RADIOLOGY DEPARTMENT: General X-ray: Exam(s) Completed: Chest X-Ray PERIPHERAL IV DATA: Not applicable SIGNED BY: hCarlotte Mason July 02, 2024 1:50 PM documented in this encounter [facility] 07-02-2024 Note HNO ID: [id number] Author: CRISSY VALERA Tech Service: ? Author [...] PATIENT PRESENTS WITH AN IMPLANTABLE OR ATTACHED PROCUREMENT SERVICES MANAGER: No RADIOLOGY DEPARTMENT: General X-ray: Exam(s) Completed: Chest X-Ray PERIPHERAL IV DATA: Not applicable SIGNED BY: Charlotte Mason July 02, 2024 1:50 PM [facility] 07-02-2024 Note HNO ID: [id number] Author: HOLDEN ROGERS MD Service: ? Author [...] Reactions Fluvoxamine Other: See Comments Hypertension Nitrofurantoin Mobile* Other: See Comments Hypertension Latex, Natural Rubb* [...] onset fever. Holden Rogers MD [facility] 07-02-2024 History of Present illness Narrative Patient [...] Reactions Fluvoxamine Other: See Comments Hypertension Nitrofurantoin Mobile* Other: See Comments Hypertension Latex, Natural Rubb* [...] Holden Rogers MD documented in this encounter [facility] 06-17-2024 History of Present illness Narrative [...] PATIENT PRESENTS WITH AN IMPLANTABLE OR ATTACHED PROCUREMENT SERVICES MANAGER: No RADIOLOGY DEPARTMENT: General X-ray: Exam(s) Completed: Chest X-Ray PERIPHERAL IV DATA: Not applicable SIGNED BY: Charlotte Mason June 17, 2024 2:23 PM documented in this encounter [facility] 06-17-2024 Note HNO ID: [id number] Author: CRISSY VALERA Tech Service: ? Author [...] PATIENT PRESENTS WITH AN IMPLANTABLE OR ATTACHED PROCUREMENT SERVICES MANAGER: No RADIOLOGY DEPARTMENT: General X-ray: Exam(s) Completed: Chest X-Ray PERIPHERAL IV DATA: Not applicable SIGNED BY: Charlotte Mason June 17, 2024 2:23 PM [facility] 06-17-2024 Note HNO ID: [id number] Author: MYESHA ORTIZ APRN.[facility] Service: ? Author [...] HFA 90 MCG/ACTUATION AEROSOL INHALER Myesha Ortiz APRN.[facility] 06-17-2024 History of Present illness Narrative [...] HFA 90 MCG/ACTUATION AEROSOL INHALER Myesha Ortiz APRN.LOGISTICS TEAM LEAD documented in this [facility] [facility] Note Patient: Reuben Carreno : [...] then to 15 bid. Rubi Vizcarra from [facility], prescribes. He has called their office back [...] Procedure: COLONOSCOPY; Surgeon: Dago Davis MD; Location: [facility]; Service: General Surgery COLONOSCOPY W/ POLYPECTOMY 2019 [place] COLONOSCOPY W/ POLYPECTOMY 11/10/2011 CYSTO CYSTO EGD N/A 10/16/2022 Procedure: ESOPHAGOGASTRODUODENOSCOPY WITH BIOPSY, ENDO FLIP AND SHEA CHIP PLACEMENT; Surgeon: Dago Davis MD; Location: [facility]; Service: General Surgery MULTIPLE TOOTH EXTRACTIONS 10/25/2022 with cyst excision PROLONGED ACID REFLUX TEST 48H PH N/A 10/16/2022 Procedure: PROLONGED ACID REFLUX TEST 48H PH; Surgeon: Dago Davis MD; Location: [facility]; Service: General Surgery Family History: Family [...] min Stress: No Stress Concern Present (06/15/2024) [employer] - Occupational Stress Questionnaire Feeling of Stress : Not at all Social Connections: Moderately Integrated (06/15/2024) Social Connection and Isolation Panel [NHANES] Frequency of Communication with Friends and Family: Twice a week Frequency of Social Gatherings with Friends and Family: Twice a week Attends Rastafari Services: More than 4 times per year [...] (2 mg tota (more content not included)... [facility] 04-13-2024 History of Present illness Narrative [...] PATIENT PRESENTS WITH AN IMPLANTABLE OR ATTACHED PROCUREMENT SERVICES MANAGER: No RADIOLOGY DEPARTMENT: Mammography PERIPHERAL IV DATA: Not applicable SIGNED BY: RT Peggy(Angie) April 13, 2024 4:22 PM documented in this encounter [facility] 04-13-2024 Note HNO ID: [id number] Author: CAMILA EMERY RT(R) Service: ? Author [...] PATIENT PRESENTS WITH AN IMPLANTABLE OR ATTACHED PROCUREMENT SERVICES MANAGER: No RADIOLOGY DEPARTMENT: Mammography PERIPHERAL IV DATA: Not applicable SIGNED BY: RT Peggy(Angie) April 13, 2024 4:22 PM [facility] 12-11-2023 Note OFFICE VISIT ESHAHIMANSHU Anjel NOTE Here today for Muscle Pain (Generalized/) JERRELL Tellez is here today complaining of generalized muscle pain This has been going on for about 2 weeks He was "working harder" when it started Has pain in upper [...] continues to be followed by clinic in [place] for his gender dysphoria Currently taking Estradiol [...] kg (207 lb 6.4 oz) Height: 5' 7" BP Readings from Last 3 Encounters: 12/11/23 [...] CBC and Differential (more content not included)... [facility] 08-23-2023 History of Present illness Narrative Images [...] dose today. Patient is still working in [place], family is now living with patient in [facility], and daughter/family are not supportive, patient feels [...] the visit: Rooming Note: Reuben presents to [facility] today for Gender Affirming Hormone Therapy (Pt [...] Additional persons on the call: no one Merchandise Support Associate used/present: No. HIV testing offered: Yes STI [...] dose today. Patient is still working in [place], family is now living with patient in [facility], and daughter/family are not supportive, patient feels trapped between self and family. We discussed restarting estradiol low dose and or increasing spironolactone, patient would like to restart Estrace for now. Plan: Continue same management plan Continue meds as previously prescribed Order labs Restart Estradiol 2 mg daily Cont spironolactone to 50mg daily Follow up and labs in 3 months documented in this encounter [facility] Phone: 08-21-2023 Miscellaneous Notes Healthy Eating 101 [...] impact. Is believed that sugar is the "new tobacco." Recent studies show that artificial sweeteners and [...] on line and in the community: Online: [facility] for Trans Health: http://transhealth.[facility]/trans?page =home Primary Care Protocols (medical guidelines for taking care of trans people) http://transhealth.[facility]/trans?page =guidelines-home Feminizing Therapy: http://transhealth.[facility]/trans?page =ejkijfzlxp-nlfskvvkuu-xmraedm Video for Feminizing Therapy: https://www.Digiscendube.com/watch?v=GJEix- i5pmE Masculinizing Therapy: http://transhealth.[facility]/trans?page =omwtvfduja-axabucrvabssc-tmewlbu Video for Masculinizing Therapy: https://www.youAM Analyticsube.com/watch?v=GAJZ4f wTuyc&feature=youtu.be Community Resources: [place]: http://www.trans[place].org/ Legal Assistance/ Name and Gender Marker Change: https://REBIScan/our-services /fdsppy-dmjglmfjt-hzgz/legal-clinics/ Gender Marker & Name Change Guide Find instructions for changing your name and gender marker on identity documents and other records for each [facility]. https://Undesk.Logisticare/our-services /jhaenx-fsmsnhwiv-oyqw/owkbzj-seqypq-l yxr-kbikba-wdepm/ documented in this encounter [facility] Phone: 2023 Miscellaneous Notes Healthy Eating 101 [...] impact. Is believed that sugar is the "new tobacco." Recent studies show that artificial sweeteners and [...] on line and in the community: Online: [facility] for Trans Health: http://transhealth.[facility]/trans?page =home Primary Care Protocols (medical guidelines for taking care of trans people) http://transhealth.[facility]/trans?page =guidelines-home Feminizing Therapy: http://transhealth.[facility].edu/trans?page =taohctyghp-ggdjznibvb-gbwjkqa Video for Feminizing Therapy: https://www.Digiscendube.com/watch?v=GJEix- i5pmE Masculinizing Therapy: http://transhealth.[facility]/trans?page =zqbpxbxaut-xniejssbiedex-anbhyts Video for Masculinizing Therapy: https://www.Digiscendube.com/watch?v=GAJZ4f wTuyc&feature=youtu.be Community Resources: [place]: http://www.trans[place].org/ Legal Assistance/ Name and Gender Marker Change: https://REBIScan/our-services /biublf-ejljqxfrs-wmcx/legal-clinics/ Gender Marker & Name Change Guide Find instructions for changing your name and gender marker on identity documents and other records for each [facility]. https://REBIScan/our-services /lxtelm-ztygjwdzu-sjim/ropxgx-hylrdd-q hkk-gnfctt-pqwdn/ You might get an email asking you to complete a survey about your visit today. We hope you will take a few minutes and answer some questions about your experience. Your responses let us know what is working well and where we can improve. The email will come from [employer], which is the company that sends out our patient surveys. Thank you for your feedback and trusting us with your care. documented in this encounter [facility] Phone: 2023 History of Present illness Narrative [...] states that she is still working in [place], family stayed in [facility], she is living in [facility] for work and visits family on the [...] Department Center 08/08/2023 2:30 PM Opal Kenny APRN,[facility] ROS & Physical Exam Review [...] Mood normal. Rooming Note: Reuben presents to [facility] today for Gender Affirming Hormone Therapy Since [...] Additional persons on the call: no one Merchandise Support Associate used/present: No. HIV testing offered: declined STI [...] states that she is still working in [place], family stayed in [facility], she is living in [facility] for work and visits family on the [...] in 3 months documented in this encounter [facility] Phone: 02-08-2023 Discharge summary Note Date/Time February 08, 2023 4:44pm [facility] Medical Records Department [address] [place] [address] Emergency Department Summary 02/08/23 MR#: [id number] Acct: [id number] Name: REUBEN SAPP Rep #: [id number] : 1975 47 From: Nash Geller MD [...] chemical/fumes while at work. 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 His medications have not changed. One of [...] reaction tohis medication. Patient's physician affiliated with [facility]. There are no records at [facility] or laboratory results performed prior to this visit at [facility]. Lab Data Attestation: I reviewed [...] % (Auto) 55.7 Lymph % (Auto) 29.1 Mobile % (Auto) 9.2 Eos % (Auto) 4.0 [...] your Primary Care Provider. Call [facility] ([phone]) or report to the closest Emergency Room. Call 911 if necessary. 02/08/23 1810 <Electronically signed by Nash Geller MD> Cosigner Signature (if applicable): CC: BRENT CROCKER ~ Signed [facility] Work Phone: 1(167) 829-714207-05-2023 Miscellaneous Notes* Patient Instructions - Opal Kenny APRN, CNP - 11/21/2022 7:19 AM EDT You might get an email asking you to complete a survey about your visit today. We hope you will take a few minutes and answer some questions about your experience. Your responses let us know what is working well and where we can improve. The email will come from [employer], which is the company thatsends out our patient surveys. Thank you for your feedback and trusting us with your care.Trans Health Resources There are a number of resources available on line and in the community: Online: [facility] for Trans Health: http://transhealth.[facility]/trans?page=home Primary Care Protocols (medical guidelines for taking care of trans people) http://transhealth.[facility]/trans?page=guidelines-home Feminizing Therapy: http://transhealth.[facility]/trans?page=cuwrvmjnfj-gbnsjxxzoq-vfucgin Video for Feminizing Therapy: https://www.Digiscendube.com/watch?v=GJEix-i5pmE Masculinizing Therapy: http://transhealth.[facility]/trans?page=bbujvmdhpy-trwpsgdaqdunw-sfirvbc Video for Masculinizing Therapy: https://www.Digiscendube.com/watch?v=SUBM7ptRexd&feature=youtu.be Community Resources: [place]: http://www.trans[place].org/ Legal Assistance/ Name and Gender Marker Change: https://REBIScan/our-services/scyfvp-hgktrneem-muex/legal-clinics/ Gender Marker & Name Change Guide Find instructions for changing your name and gender marker on identity documents and other records for each [facility]. https://REBIScan/our-services/mkcgnm-zokkubtkq-huqv/jbgaas-xjegcl-cxkh- change-guide/ Feminizing Fact Sheet Estrogen Estrogen should [...] options for Smoking Cessation. documented [facility] [employer] Work Phone: [phone]) 341-915907-05-2023 History of Present illness Narrative* Opal Kenny APRN, CNP - 11/21/2022 7:00 AM EDT Images from the original note were not included. Tele-Health Visit Statement [facility] The patient's identity was verified and they have verbally stated that they are currently in the [facility]. The risks, benefits, and alternatives of a realtime synchronous audiovisual consultation were discussed with the patient and/or their guardian and they have given their verbal consent to this tele-health visit. This visit took place via tele-health video visit Additional persons on the call: no one Merchandise Support Associate used/present: Not Applicable Chief Complaint / HPI: [...] (Pt stated will get labs completed at [facility] near home ) Future Appointments Date Time Provider Department Center 02/20/2023 7:30 AM Opal Kenny APRN[facility] ROS & Physical Exam Review [...] previously prescribed Order labs [facility] Work Phone: [phone] Instructions* Patient Instructions* Opal Kenny APRN, CNP [...] impact. Is believed that sugar is the "new tobacco." Recent studies show that artificial sweeteners and [...] on line and in the community: Online: [facility] Excellence for Trans Health: http://transhealth.[facility]/trans?page=home Primary Care Protocols (medical guidelines for taking care of trans people) http://transhealth.[facility].edu/trans?page=guidelines-home Feminizing Therapy: http://transhealth.[facility].edu/trans?page=bafhsqefrf-ympzemlqok-usmngaj Video for Feminizing Therapy: https://www.youAM Analyticsube.com/watch?v=GJEix-i5pmE Masculinizing Therapy: http://transhealth.[facility].edu/trans?page=uebzexroah-ngbpzuwyumbvv-umnatye Video for Masculinizing Therapy: https://www.youAM Analyticsube.com/watch?v=QIGY6glKefl&feature=youtu.be Community Resources: [place]: http://www.trans[place].org/ Legal Assistance/ Name and Gender Marker Change: https://REBIScan/our-services/kritcy-ztcyonitb-epin/legal-clinics/ Gender Marker & Name Change Guide Find instructions for changing your name and gender marker on identity documents and other records for each [facility]. https://REBIScan/our-services/eqlrzs-jbadzwcts-qxxb/rlrfzo-osqbit-mhtl- change-guide/ You might get an email asking you to complete a survey about your visit today. We hope you will take a few minutes and answer some questions about your experience. Your responses let us know what is working well and where we can improve. The email will come from [employer], which is the company thatsends out our patient surveys. Thank you for your feedback and trusting us with your care. documented [facility]: [phone] Miscellaneous Notes* Assessment & Plan Note - Opal Kenny APRN, CNP - 08/22/2022 7:05 AM EDTAssociated Problem(s): Gender dysphoria Images from the original note were not included. Gender Affirming Care - Follow-Up Visit: Name Reuben Gender Identity questioning Pronouns darius 08/22/2022 7:05 AM 05/23/2022 12:00 AM [facility] Meds Prescribed estradiol 2 mg BID oral 2 mg BID oral spironolactone 50 mg Daily oral 25 mg Daily oral 50 mg Daily oral 25 mg Daily oral Medication marked as long-term Multiple values from one day are sorted in reverse-chronological order Side effects? none Adherence? Has missed second estradiol dose "every so often" Days in dosing cycle (if inj) 3 [...] with treatment , patient improved energy, was "let go from work" in care with mental health, 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 The day of lab draw patient reports he was flying from [place], took estradiol at 11pm and lab draw was the next day around 3. Had a visit with family in [place], and "they noticed my breast, butt and hips are bigger", reports told family about transition and they are not in agreement. Reports is not very supportiveagain. Patient reports getting to the point where it is hard to hide feminine physical changes, patient contemplating presentation. Patient would like to increase estradiol today, "I want to keep moving forward". Plan: Change dose/Add new med Order labs Increase estradiol to 6mg daily continue spironolactone Follow up and labs 3 months [facility] Work Phone: [phone] History of Present illness Narrative* Opal Kenny [...] Additional persons on the call: no one Merchandise Support Associate used/present: No. Chief Complaint / HPI: Chief [...] none Adherence? Has missed second estradiol dose "every so often" Days in dosing cycle (if inj) 3 [...] with treatment , patient improved energy, was "let go from work" in care with mental health, 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 The day of lab draw patient reports he was flying from [place], took estradiol at 11pm and lab draw was the next day around 3. Had a visit with family in [place], and "they noticed my breast, butt and hips are bigger", reports told family about transition and they are not in agreement. Reports is not very supportiveagain. Patient reports getting to the point where it is hard to hide feminine physical changes, patient contemplating presentation. Patient would like to increase estradiol today, "I want to keep moving forward". Plan: Change dose/Add new med Order labs [...] and Affect: Mood normal. [facility] Work Phone: Evaluation noteNo assessment information available [facility] Work Phone: Evaluation note* Diagnosis Gender dysphoria- Primary Gender identity disorder in children documented in this encounter [facility] Work Phone: Evaluation note* Diagnosis Gender dysphoria- Primary Gender identity disorder in children documented in this encounter [facility] Phone: Evaluation note* Diagnosis Gender dysphoria- Primary Gender identity disorder in children Hair thinning Alopecia, unspecified documented in this encounter [facility] Phone: Evaluation note* Diagnosis URI, acute- Primary Acute upper respiratory infections of unspecified site Acute cough History of asthma Personal history of other diseases of respiratory system [facility]* Diagnosis Acute cough- Primary Acute cough documented in this encounter [facility] note* Diagnosis Acute cough documented in this encounter [facility] note* Diagnosis URI with cough and congestion- Primary Flu-like symptoms Other general symptoms Wheezing documented in this encounter [facility] note* Diagnosis Acute right-sided low back pain with right-sided sciatica- Primary [facility]* Diagnosis Gender dysphoria- Primary Gender identity [...] thinning Alopecia, unspecified documented in this encounter [facility] Work Phone: Evaluation note* Diagnosis Chest pain, unspecified type- Primary documented in this encounter [facility] Summary Purpose Family History No Family [...] No February 08, 2023 4:12pm Power of Career Services Representative No January 4:12pm Chief Complaint and Reason [...] section and content) DATE CREATED AUTHOR 08/08/2020 [facility] DATE CREATED AUTHOR AUTHOR'S ORGANIZ ATION [facility]/20/2020 [facility] DATE CREATED AUTHOR AUTHOR'S ORGANIZ ATION 05/02/2022 [facility] DATE CREATED AUTHOR AUTHOR'S ORGANIZ ATION 04/16/2024 [facility] DATE CREATED AUTHOR AUTHOR'S ORGANIZ ATION 10/16/2024 [facility] DATE CREATED AUTHOR AUTHOR'S ORGANIZ ATION 01/24/2025 [facility] DATE CREATED AUTHOR AUTHOR'S ORGANIZ ATION 02/26/2025 [facility] DATE CREATED AUTHOR AUTHOR'S ORGANIZ ATION 03/30/2025 [facility] DATE CREATED AUTHOR AUTHOR'S ORGANIZ ATION 04/01/2025 [facility] DATE CREATED AUTHOR AUTHOR'S ORGANIZ ATION 04/01/2025 [facility] Care Teams (unrecognized sec tion and content) Team Status: Active Member Role Status Dates PANKAJ VIVEROS Family Provider Active No PCP Primary Care Provider Active Team Status: Inactive Member Role Status Dates No PCP Primary Care Provider Active Susie Rinaldi CNP Attending Provider Active Jig Borer Relationship Specialty Start Date End Date Non-[facility], Provider PCP - General Deckhand Engineer 08/01/21 Jig Borer Relationship Specialty Start Date End Date Non-[facility], Provider PCP - General Deckhand Engineer 08/01/21 Team Status: Active Member Role Status Dates BRENT CROCKER Primary Care Provider Active Team Status: Inactive Member Role Status Dates Dr. Nash Geller MD Emergency Provider Active LIZZETTE WHELAN Primary Care Provider Active Jig Borer Relationship Specialty Start Date End Date Non-[facility], Provider PCP - General Deckhand Engineer 08/01/21 Jig Borer Relationship Specialty Start Date End Date Brent Crocker [address] [place] [address] PCP - General Family Medicine, Physician 08/21/23 Jig Borer Relationship Specialty Start Date End Date Brent Crocker MD [address] [place] [address] PCP - General Family Medicine 07/02/24 Jig Borer Relationship Specialty Start Date End Date Brent Crocker MD [address] [place] [address] PCP - General Family Medicine 07/02/24 Jig Borer Relationship Specialty Start Date End Date Brent Crocker MD [address] [place] [address] PCP - General Family Medicine 07/02/24 Jig Borer Relationship Specialty Start Date End Date Brent Crocker MD [address] [place] [address] PCP - General Family Medicine 07/02/24 Jig Borer Relationship Specialty Start Date End Date Brent Crocker MD [address] [facility] [place] [address] PCP - General Family Medicine 07/02/24 Jig Borer Relationship Specialty Start Date End Date Brent Crocker [address] [facility] [address] PCP - General Family Medicine, Physician 08/21/23 Jig Borer Relationship Specialty Start Date End Date Keke Jackson MD [address] [place] [id number] PCP - General Internal Medicine 11/06/24 Goals [...] or prosecute any alcohol or drug abuse patient.[facility] the event this information is protected by the Federal Confidentiality of Alcohol and Drug Abuse Patient Records regulations: The Federal rules restrict any use of the information to criminally investigate or prosecute any alcohol or drug abuse patient.[facility] HospitalIn the event this information is protected by the Federal Confidentiality of Alcohol and Drug Abuse Patient Records regulations: The Federal rules restrict any use of the information to criminally investigate or prosecute any alcohol or drug abuse patient.[facility] HospitalIn the event this information is protected by the Federal Confidentiality of Alcohol and Drug Abuse Patient Records regulations: The Federal rules restrict any use of the information to criminally investigate or prosecute any alcohol or drug abuse patient.[facility] HospitalIn the event this information is protected by the Federal Confidentiality of Alcohol and Drug Abuse Patient Records regulations: The Federal rules restrict any use of the information to criminally investigate or prosecute any alcohol or drug abuse patient.[facility] HospitalIn the event this information is protected by the Federal Confidentiality of Alcohol and Drug Abuse Patient Records regulations: The Federal rules restrict any use of the information to criminally investigate or prosecute any alcohol or drug abuse patient.[facility] HospitalIn the event this information is protected by the Federal Confidentiality of Alcohol and Drug Abuse Patient Records regulations: The Federal rules restrict any use of the information to criminally investigate or prosecute any alcohol or drug abuse patient.[facility] HospitalIn the event this information is protected by the Federal Confidentiality of Alcohol and Drug Abuse Patient Records regulations: The Federal rules restrict any use of the information to criminally investigate or prosecute any alcohol or drug abuse patient.[facility] HospitalIn the event this information is protected by the Federal Confidentiality of Alcohol and Drug Abuse Patient Records regulations: The Federal rules restrict any use of the information to criminally investigate or prosecute any alcohol or drug abuse patient.[facility] FOR RECORDS PERTAINING TO PATIENTS WHO [...] BE BASED ON THE PRIMARY CLINICAL RECORDS. [facility] [employer] [facility]. provides no warranty or guarantee of the accuracy or completeness of information in this document.
--- NOTE | 2025-04-16 13:37 | US_ITS ---
PROCEDURE: BREAST LIMITED UNILATERAL 04/16/2025 REASON FOR EXAM: M, Age 49 y/o , LEFT BREAST LUMP. Palpable lump. Inconclusive mammogram. Evaluate. COMPARISON: Mammogram dated 04/08/2025 and 04/13/2024. TECHNIQUE: Procedure Code: [id number] Modality: US Procedure: BREAST LIMITED UNILATERAL FINDINGS: There is a solid hypoechoic irregularly marginated masslike structure seen in the retroareolar region of the left breast measuring 2.2 x 2.0 x 1.8 cm. This masslike structure does correlate to the palpable area. It does correlate to the masslike density seen on the mammogram. It most likely represents gynecomastia. The right breast was scanned for comparison purposes. There is a solid hypoechoic irregularly marginated masslike density in the retroareolar region of the right breast measuring 13 x 9 x 9 mm. This appears to represent a focal area of gynecomastia. US/Breast Limited Unilateral IMPRESSION: The masslike structures in both breasts most likely represent gynecomastia. Sh ort-term six-month follow-up ultrasound is recommended to document stability. BI-RADS 3: PROBABLY BENIGN. RECOMMENDATION: 6 Month Follow-up Reading Location: [facility]
--- NOTE | 2025-04-16 14:00 | BI_ITS ---
EXAM: DIAG MAMM W/CAD, BILAT 04/16/2025 CLINICAL HISTORY: M, Age 49 y/o , LEFT BREAST LUMP. Patient has been taking estrogen. TECHNIQUE: Procedure Code: [id number] Modality: MG Procedure: DIAG MAMM W/CAD, BILAT. COMPARISON: Prior exam(s) dated 04/13/2024. FINDINGS: TISSUE DENSITY: The breasts are extremely dense, which lowers the sensitivity of mammography. Bilateral Breast Mammographic Findings: There is increased density in the retroareolar regions of both breast. The areas appear to represent probable gynecomastia. There are no suspicious masses, suspicious calcifications, architectural distortion or secondary signs of malignancy identified in either breast. The dense breast tissue could obscure an underlying abnormality correlating to the palpable abnormality in the left breast. Further workup with ultrasound will be performed for further evaluation. BI/DIAG MAMM W/CAD, BILAT IMPRESSION: Ultrasonography will be performed for further evaluation of the palpable abnorm ality. OVERALL FINAL ASSESSMENT BI-RADS 0: INCOMPLETE - NEED ADDITIONAL IMAGING EVALUATION. RECOMMENDATION: Ultrasound Recommended Additional Recommendation none A letter with findings and recommendations will be mailed to the patient. Reading Location: [id number]
== END 2025-04-16 23:59 | disposition home or self-care (01) ==
PROVIDERS: PCP Internal Medicine; Referring Provider Nurse Practitioner Family; Visit Provider Nurse Practitioner Family
DX: N63.20 Unspecified lump in the left breast, unspecified quadrant (principal)
CPT/HCPCS: 76642; 77062; 77066; G0279